=== PATIENT | female | born 1935 | race Caucasian/White ===

== ENCOUNTER 2016-11-04 13:12 | Inpatient (IN) | payer OTHER ==
[2016-11-04 13:17] VITALS: BMI 31.7
[2016-11-04] MEDS ORDERED: ASPIRIN 325 MG TABLET PO ONE (13:41)
[2016-11-04 13:45] LABS: BASOPHIL 0.3 % (0-2.0); EOSINOPHIL 1.3 % (0-4.5); MCH 26.6 pg (25.7-33.7); MCHC 32.9 g/dl (32.0-36.0); MEAN CELL VOLUME 80.8 fl (80-96); MEAN PLT VOLUME 9.3 fl (7.5-11.1); PLATELET COUNT 241 K/MM3 (134-434); RDW 15.7 % (11.6-15.6); WHITE BLOOD COUNT 12.3 K/mm3 (4.0-10.0)
[2016-11-04] MEDS ORDERED: FUROSEMIDE 40 MG/4 ML INJECTABLE VIAL IVPUSH ONE (13:51)
--- NOTE | 2016-11-04 13:51 | PDOC ---
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 She was taken off her regular digoxin about 3 weeks ago. She notes that this has worsened since the onset and is similar to her prior episodes of CHF exacerbation. She measured her pulse oxygenation to be in the mid-80s at home on room air, and she turned on her supplemental oxygen to 3 LPM with slower-than -normal improvement for her baseline. Her only other additional symptoms have been foot/ankle swelling on both sides, and mid-epigastric/lower mid-chest burning sensation this morning. She stopped taking her normal digoxin at the request of her regular doctor a few weeks ago, and also was treated 2-3 weeks ago for a bronchitis with Prednisone and a Z-pack, which she took as prescribed. Past History - Past Medical History Allergies/Adverse Reactions: Allergies Allergy/AdvReac Type Severity Reaction Status Date / Time albuterol Allergy Hives Verified 11/04/16 15:35 ciprofloxacin Allergy Rash Verified 11/04/16 15:35 clindamycin Allergy Hives Verified 11/04/16 15:35 lactose [Lactose] Allergy Nausea Verified 11/04/16 15:35 levofloxacin [From Levaquin] Allergy Rash Verified 11/04/16 15:35 Penicillins Allergy Swelling Verified 11/04/16 15:35 Shellfish Allergy Difficulty Verified 11/04/16 15:35 Breathing Sulfa (Sulfonamide Allergy Rash Verified 11/04/16 15:35 Antibiotics) trimethobenzamide HCl Allergy Rash Verified 11/04/16 15:35 [From Tigan] atorvastatin calcium AdvReac Unknown "muscle Verified 11/04/16 15:35 [From Lipitor] weakness" morphine AdvReac Unknown blurred Verified 11/04/16 15:35 vision Home Medications: Ambulatory Orders Aspirin [ASA -] 81 mg PO DAILY 08/10/15 Budesonide/Formeterol Fumarate [SYMBICORT 80/4.5mcg -] 1 inh PO BID 08/10/15 Tiotropium [place] [Spiriva] 1 inh PO DAILY 08/10/15 Levothyroxine [Synthroid -] 75 mcg PO DAILY 09/16/15 Metoprolol Succinate [Toprol XL -] 25 mg PO BID #60 tab.sr.24h 09/24/15 Docusate Sodium [Colace -] 100 mg PO BID 11/06/15 Clopidogrel Bisulfate [Clopidogrel] 75 mg PO DAILY 03/18/16 Furosemide [Lasix -] 40 mg PO BID 03/18/16 Simvastatin [Zocor -] 40 mg PO HS 03/18/16 Spironolactone 12.5 mg PO BID 11/04/16 Anemia: No Asthma: Yes Cancer: No Cardiac Disorders: Yes (CHF, , AVR(bioprosthetic) , CAD, CABG, Afib) CVA: No COPD: Yes (02 DEPENDANT 3L NC) CHF: Yes Dementia: No Diabetes: No GI Disorders: No Disorders: No HTN: Yes Hypercholesterolemia: Yes Liver Disease: No Suicide Attempt (Hx): No Seizures: No Thyroid Disease: Yes (HYPO.) - Surgical History Abdominal Surgery: No Appendectomy: Yes Cardiac Surgery: Yes (BYPASS-triple 14 years ago, AVR bioprosthetic 04/23, Pmarker&defib) Cholecystectomy: Yes Lung Surgery: No Neurologic Surgery: No Orthopedic Surgery: Yes (TKR right) - Immunization History Immunization Up to Date: Yes - Psycho/Social/Smoking Cessation Hx Anxiety: No Suicidal Ideation: No Smoking Status: No Smoking History: Former smoker Have you smoked in the past 12 months: No Number of Cigarettes Smoked Daily: 0 If you are a former smoker, when did you quit?: 21 YRS Information on smoking cessation initiated: No Hx Alcohol Use: No Drug/Substance Use Hx: No Substance Use Type: None Hx Substance Use Treatment: No Respiratory Specific PMHX - Complaint Specific PMHX Angina: Yes Bronchitis: Yes Pneumonia: Yes Pulmonary Embolus: No TB (Tuberculosis): No Review of Systems - Review of Systems Constitutional: No: Chills, Fever HEENTM: No: Nose Congestion, Throat Pain Respiratory: Yes: Orthopnea, Shortness of Breath, SOB with Exertion, SOB at Rest. No: Cough, Productive cough Cardiac (ROS): Yes: Chest Pain (lower mid-chest), Edema (both feet). No: Palpitations ABD/GI: No: Constipated, Diarrhea, Nausea, Vomiting : No: Burning, Dysuria Musculoskeletal: No: Back Pain, Neck Pain Integumentary: No: Bruising, Rash Neurological: No: Headache, Numbness, Tingling, Weakness, Dizziness Endocrine: No: Unexplained Weight Gain, Unexplained Weight Loss *Physical Exam - Vital Signs Last Vital Signs Temp Pulse Resp BP Pulse Ox 97.3 F L 103 H 22 118/76 97 11/04/16 13:15 11/04/16 13:15 11/04/16 13:15 11/04/16 13:15 11/04/16 13:15 - Physical Exam General Appearance: Yes: Nourished, Mild Distress, Other (appears anxious, tripoding with legs over side of bed, wearing nasal cannula) HEENT: positive: EOMI, Normal Voice, Hearing Grossly Normal. negative: Scleral Icterus (R), Scleral Icterus (L), Nasal Congestion Neck: positive: Trachea midline, Supple. negative: Tender, Rigid Respiratory/Chest: positive: Respiratory Distress (mild), Crackles (faint bilateral bases), Other (poor air movement, decreased breath sounds) Cardiovascular: positive: Regular Rhythm, Regular Rate, Edema (2+ bilateral pedal to distal calf), Systolic Murmur (2/6). negative: Murmur Gastrointestinal/Abdominal: positive: Normal Bowel Sounds, Soft. negative: Tender, Organomegaly, Pulsatile Mass, Guarding Musculoskeletal: positive: Normal Inspection. negative: Decreased Range of Motion, Vertebral Tenderness Extremity: positive: Normal Capillary Refill, Normal Inspection, Normal Range of Motion. negative: Tender, Cyanosis Integumentary: positive: Normal Color, Dry, Warm. negative: Erythema, Rash, Bruising Neurologic: positive: cleaner operator II-XII NML intact, Fully Oriented, Alert, Normal Mood/ Affect, Normal Response, Motor Strength 5/5 Heart Score/ECG Review - History History: Slightly suspicious - Age Age: >/= 65 - Risk Factors Risk Factors Heart Score: Yes Hx Hypertension - Troponin Troponin: </= normal limit #1 ECG reviewed & interpreted by me at: 13:45 Paced rhythm, ate of 96, otherwise unremarkable EKG ED Treatment Course - LABORATORY CBC & Chemistry Diagram: 11/04/16 13:30 11/04/16 13:30 - RADIOLOGY Radiology Studies Ordered: Category Date Time Status CHEST X-RAY PORTABLE* [RAD] Stat Radiology 11/04/16 13:41 Ordered Chest X-Ray Result: Other (Poor inspiratory effort but no obvious pleural effusions or consolidations) Medical Decision Making - Medical Decision Making 81 yo female with h/o CHF, COPD, recent bronchitis (tx Z-pack and Prednisone), diaphragm partial paralysis, and JERALD. Presents with SOB since yesterday with sat's to 80s at home on room air. Satting well in the ED but must remain on 3+ LPM, continues to feel very SOB despite diuresis. 2+ pitting pedal edema bilaterally, poor air movement, crackles bilateral bases , no wheezes. Most likely this is CHF exacerbation, also on ddx are COPD exacerbation, PNA, bronchitis, PE. Ordered are CXR, EKG, CBC, CMP, UA and culture, troponin, BNP. BNP is >8000 (note Pt was admitted in 03/2016 with CHF exacerbation with BNP about 6200). EKG unchanged and troponin wnl, CXR without e/o PNA or pleural effusion. She is comfortable with admission for inpatient monitoring and further management. *DC/Admit/Observation/Transfer Diagnosis at time of Disposition: CHF exacerbation Qualifiers: Congestive heart failure type: unspecified congestive heart failure type Qualified Code(s): I50.9 - Heart failure, unspecified - Discharge Dispostion Condition at time of disposition: Improved Admit: Yes - Attestations Physician Attestion: 11/04/16 17:52 I, Dr. Tayla May, attest that this document has been prepared under my direction and personally reviewed by me in its entirety. I further attest, that it accurately reflects all work, treatment, procedures and medical decision -making performed by me.
--- NOTE | 2016-11-04 13:53 | PDOC ---
Attending Attestation - Resident Resident Name: Tayla May - ED Attending Attestation I have performed the following: I have examined & evaluated the patient, The case was reviewed & discussed with the resident, I agree w/resident's findings & plan, Exceptions are as noted - HPI HPI: 11/04/16 13:48 81 yo female with very complicated PMH presents with shortness of breath and low pulse ox on 3L of home o2 - Physicial Exam PE: 11/04/16 13:49 No Obvious distress but increased work of breathing - Medical Decision Making 11/04/16 13:[address] May's assessment and plan Discharge Disposition - Diagnosis CHF exacerbation Qualifiers: Congestive heart failure type: unspecified congestive heart failure type Qualified Code(s): I50.9 - Heart failure, unspecified - Discharge Dispostion Condition at time of disposition: Improved Last Admission D/C Date: 03/25/16 Admit: Yes - Referrals Referrals: Flori Bella MD [Primary Care Provider] - - Patient Instructions - Post Discharge Activity
[2016-11-04] MEDS ORDERED: METOLAZONE 10 MG TABLET PO ONE (13:54)
[2016-11-04 13:59] LABS: INR 1.11 (0.82-1.09); PROTHROMBIN TIME (PATIENT) 12.2 SEC (9.98-11.88)
[2016-11-04 14:02] LABS: ACTIVATED PTT 31.7 SECONDS (26.9-34.4)
[2016-11-04] MEDS ORDERED: ASPIRIN 325 MG ENTERIC COATED TABLET (FP) ONE (14:06)
[2016-11-04] MEDS ORDERED: FUROSEMIDE 40 MG/4 ML INJECTABLE VIAL ONE (14:07)
[2016-11-04 14:15] LABS: ALBUMIN 3.4 g/dl (3.4-5.0); ANION GAP 11 (8-16); BILIRUBIN,TOTAL 0.7 mg/dL (0.2-1.0); CALCIUM 8.7 mg/dL (8.5-10.1); CO2 29 mmol/L (21-32); CREATININE 0.7 mg/dL (0.55-1.02); GLUCOSE,RANDOM 98 mg/dL (74-106); SGPT/ALT 19 U/L (12-78); TOT PROT 7.3 g/dl (6.4-8.2)
[2016-11-04] MEDS ORDERED: METOLAZONE 5 MG TABLET PO ONE (14:15)
[2016-11-04 14:18] LABS: ALK PHOS 116 U/L (45-117); TROPONIN I 0.02 ng/ml (0.00-0.05)
[2016-11-04 15:37] LABS: CPK 49 IU/L (26-192)
[2016-11-04 15:43] LABS: SGOT/AST 26 U/L (15-37)
--- NOTE | 2016-11-04 18:30 | HP ---
CHIEF COMPLAINT: " i couldn't breathe" PCP: Dr. 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 Patient reports worsening exertional dyspnea, orthopnea, increased dry cough, anorexia, O2 sats below baseline while on home O2 (93 at rest from normal 97 and 85 on exertion), LE edema L>R as well as burning nonradiating mid sternal pain since this AM. She reports compliance with home meds but states that her cardilogist d/cd her digoxin 3 w ago. She denies increasing salt intake. Last TTE 03/2016 severely reduced EF, globally hypokinetic LV ER course was notable for: (1) WBC of 12.3, BNP of 8447 (2) CXR- no consolidation or pleural effusion (3) EKG- Paced rhythm, rate of 96, otherwise unremarkable EKG, trops negative x1 , 80 MG lasix, metalazone 10mg x2 PAST MEDICAL HISTORY: as above PAST SURGICAL HISTORY: appendectomy, cholecystectomy, R TKR Social History: Smoking: Former smoker, quit 21 yrs ago Alcohol: Denies Drugs: Denies Family History: CAD Allergies albuterol Allergy (Verified 11/04/16 15:35) Hives ciprofloxacin Allergy (Verified 11/04/16 15:35) Rash clindamycin Allergy (Verified 11/04/16 15:35) Hives lactose [Lactose] Allergy (Verified 11/04/16 15:35) Nausea levofloxacin [From Levaquin] Allergy (Verified 11/04/16 15:35) Rash Penicillins Allergy (Verified 11/04/16 15:35) Swelling Shellfish Allergy (Verified 11/04/16 15:35) Difficulty Breathing Sulfa (Sulfonamide Antibiotics) Allergy (Verified 11/04/16 15:35) Rash trimethobenzamide HCl [From Tigan] Allergy (Verified 11/04/16 15:35) Rash atorvastatin calcium [From Lipitor] Adverse Reaction (Unknown, Verified 15:35) "muscle weakness" zocor ok as per patient morphine Adverse Reaction (Unknown, Verified 11/04/16 15:35) blurred vision HOME MEDICATIONS: Home Medications Medication Instructions Recorded Aspirin [ASA -] 81 mg PO DAILY 08/10/15 Budesonide/Formeterol Fumarate 1 inh PO BID 08/10/15 [SYMBICORT 80/4.5mcg -] Tiotropium Black [Spiriva] 1 inh PO DAILY 08/10/15 Levothyroxine [Synthroid -] 75 mcg PO DAILY 09/16/15 Metoprolol Succinate [Toprol XL -] 25 mg PO BID #60 tab.sr.24h 09/24/15 Docusate Sodium [Colace -] 100 mg PO BID 11/06/15 Clopidogrel Bisulfate [Clopidogrel] 75 mg PO DAILY 03/18/16 Furosemide [Lasix -] 40 mg PO BID 03/18/16 Simvastatin [Zocor -] 40 mg PO HS 03/18/16 Spironolactone 12.5 mg PO BID 11/04/16 REVIEW OF SYSTEMS CONSTITUTIONAL: Absent: fever, chills, weight change HEENT: Absent: rhinorrhea, nasal congestion, throat pain CARDIOVASCULAR: Absent: syncope, palpitations, lightheadedness RESPIRATORY: Absent: wheezing, stridor, hemoptysis GASTROINTESTINAL: Absent: abdominal pain, abdominal distension, nausea, vomiting, diarrhea, constipation, melena, hematochezia GENITOURINARY: Absent: dysuria, flank pain MUSCULOSKELETAL: Absent: back pain, neck pain SKIN: Absent: rash, itching, pallor HEMATOLOGIC/IMMUNOLOGIC: Absent: easy bleeding, easy bruising ENDOCRINE: Absent: unexplained weight gain, unexplained weight loss NEUROLOGIC: Absent: headache, focal weakness or paresthesias PSYCHIATRIC: Absent: anxiety, depression PHYSICAL EXAMINATION Vital Signs - 24 hr 11/04/16 11/04/16 11/04/16 13:15 13:25 14:19 Temperature 97.3 F L Pulse Rate 103 H Pulse Rate [ 90 Radial] Respiratory 22 24 Rate Blood Pressure 118/76 Blood Pressure 107/69 [Right Arm] O2 Sat by Pulse 97 97 99 Oximetry (%) 11/04/16 15:54 Temperature Pulse Rate Pulse Rate [ Radial] Respiratory Rate Blood Pressure Blood Pressure 115/53 [Right Arm] O2 Sat by Pulse Oximetry (%) GENERAL: Awake, alert, and fully oriented, in no acute distress. HEAD: Normal with no signs of trauma. EYES: Pupils equal, round and reactive to light, extraocular movements intact, sclera anicteric, conjunctiva clear. No lid lag. EARS, NOSE, THROAT: Moist mucous membranes. NECK: supple without JVD LUNGS: crackles and ronchi up to mid lung roberts b/l HEART: Regular rate and rhythm, normal S1 and S2 ABDOMEN: Soft, nontender, not distended, normoactive bowel sounds, no guarding, no rebound, no masses. MUSCULOSKELETAL: Normal range of motion at all joints. No bony deformities or tenderness. No CVA tenderness. UPPER EXTREMITIES: 2+ pulses, warm, well-perfused. No cyanosis. No clubbing. No peripheral edema. LOWER EXTREMITIES: 1+ pulses, warm, well-perfused. No calf tenderness. moderate peripheral edema L>R. NEUROLOGICAL: Cranial nerves II-XII grossly intact. Normal speech. PSYCHIATRIC: Cooperative. Good eye contact. Appropriate mood and affect. SKIN: Warm, dry Laboratory Results - last 24 hr 11/04/16 11/04/16 11/04/16 13:30 13:30 13:30 WBC 12.3 H RBC 4.63 Hgb 12.3 Hct 37.4 MCV 80.8 MCH 26.6 MCHC 32.9 RDW 15.7 H Plt Count 241 D MPV 9.3 Neutrophils % 83.0 H Lymphocytes % 8.6 D Monocytes % 6.8 Eosinophils % 1.3 Basophils % 0.3 INR 1.11 PTT (Actin FS) 31.7 Sodium 137 Potassium 4.3 Chloride 97 L Carbon Dioxide 29 Anion Gap 11 BUN 27 H D Creatinine 0.7 D Creat Clearance w eGFR > 60 Random Glucose 98 Calcium 8.7 Total Bilirubin 0.7 AST 26 D ALT 19 D Alkaline Phosphatase 116 D Creatine Kinase 49 Troponin I 0.02 B-Natriuretic Peptide 8447.33 H Total Protein 7.3 Albumin 3.4 Blood Type Antibody Screen Spec Expiration Date 11/04/16 13:30 WBC RBC Hgb Hct MCV MCH MCHC RDW Plt Count MPV Neutrophils % Lymphocytes % Monocytes % Eosinophils % Basophils % INR PTT (Actin FS) Sodium Potassium Chloride Carbon Dioxide Anion Gap BUN Creatinine Creat Clearance w eGFR Random Glucose Calcium Total Bilirubin AST ALT Alkaline Phosphatase Creatine Kinase Troponin I B-Natriuretic Peptide Total Protein Albumin Blood Type Cancelled Antibody Screen Cancelled Spec Expiration Date Cancelled ASSESSMENT/PLAN: This is an 81 yo f with PMH of systolic CHF (last exaerbation 03/25), CAD s/p CABG, O2 dependent COPD (3L), HTN, aortic valve replacement (on plavix, asa), 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 Acute on chronic systolic CHF exacerbation in setting of severely reduced EF -NYHA class III -BNP >8000 above baseline -EKG unremarkable for acs -cxr bibailar congestion -trop negative x 1; trend -s/p IV lasix 80 in ED, start on IV lasix 60 d -resume beta akin, aldactone -patient not on sonya or arb, consider starting per linux developer -strict I and O, daily weight. maintain negative fluid balance -TTE -cardio consult -TFTs, Lipid panel, A1C -tele monitoring LLE edema -likley due to CHF exacerbation -b/l le duplex Prosthetic aortic valve -resume plavix, asa COPD -NC 3L -nebs -incentive spirometer -reconcile meds with pharmacy -consider starting laba/lama PPH: PPI, hep Dispo: Adm tele Problem List - Problem (1) CHF exacerbation Code(s): I50.9 - HEART FAILURE, UNSPECIFIED Qualifiers: Congestive heart failure type: unspecified congestive heart failure type Qualified Code(s): I50.9 - Heart failure, unspecified (2) Acute on chronic systolic CHF (congestive heart failure) Code(s): I50.23 - ACUTE ON CHRONIC SYSTOLIC (CONGESTIVE) HEART FAILURE (3) Shortness of breath Code(s): R06.02 - SHORTNESS OF BREATH (4) Aortic valve replaced Code(s): Z95.2 - PRESENCE OF PROSTHETIC HEART VALVE (5) CAD (coronary artery disease) Code(s): I25.10 - ATHSCL HEART DISEASE OF [place] CORONARY ARTERY W/O ANG PCTRS (6) CHF (congestive heart failure) Code(s): I50.9 - HEART FAILURE, UNSPECIFIED Qualifiers: Congestive heart failure type: unspecified congestive heart failure type Congestive heart failure chronicity: unspecified congestive heart failure chronicity Qualified Code(s): I50.9 - Heart failure, unspecified (7) COPD bronchitis Code(s): J44.9 - CHRONIC OBSTRUCTIVE PULMONARY DISEASE, UNSPECIFIED (8) Diabetes Code(s): E11.9 - TYPE 2 DIABETES MELLITUS WITHOUT COMPLICATIONS (9) Hx of CABG Code(s): Z95.1 - PRESENCE OF AORTOCORONARY BYPASS GRAFT (10) Hyperlipidemia Code(s): E78.5 - HYPERLIPIDEMIA, UNSPECIFIED (11) Hypertension Code(s): I10 - ESSENTIAL (PRIMARY) HYPERTENSION (12) Hypothyroidism Code(s): E03.9 - HYPOTHYROIDISM, UNSPECIFIED (13) ICD (implantable cardioverter-defibrillator) in place Code(s): Z95.810 - PRESENCE OF AUTOMATIC (IMPLANTABLE) CARDIAC DEFIBRILLATOR (14) Obese Code(s): E66.9 - OBESITY, UNSPECIFIED (15) Valvular heart disease Code(s): I38 - ENDOCARDITIS, VALVE UNSPECIFIED (16) CHF NYHA class III Code(s): I50.9 - HEART FAILURE, UNSPECIFIED Visit type - Emergency Visit Emergency Visit: Yes ED Registration Date: 11/04/16 Care time: The patient presented to the Emergency Department on the above date and was hospitalized for further evaluation of their emergent condition. - New Patient This patient is new to me today: Yes Date on this admission: 11/05/16 - Critical Care Critical Care patient: No
--- NOTE | 2016-11-04 20:18 | HP ---
CHIEF COMPLAINT: Shortness of Breath PCP: Dr. 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 Patient states her O2 sats dropped to 93-94 from baseline of 97 at rest. She then noticed her sats dropped to the low 80s on exertion. She is on 3L of O2 at home. She also complains of bilateral LE edema and midsternal burning sensation that began this morning. Patient stopped taking her digoxin during her last appt with Dr. Dunn a few weeks ago. Of note, her last echo was in 03/2016 with an EF of 19.7. 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 at home s/p AICD / defibrillator PAST SURGICAL HISTORY: appendectomy, cholecystectomy, R TKR Social History: Smoking: Former smoker, quit 21 yrs ago Alcohol: Denies Drugs: Denies Family History: Allergies albuterol Allergy (Verified 11/04/16 15:35) Hives ciprofloxacin Allergy (Verified 11/04/16 15:35) Rash clindamycin Allergy (Verified 11/04/16 15:35) Hives lactose [Lactose] Allergy (Verified 11/04/16 15:35) Nausea levofloxacin [From Levaquin] Allergy (Verified 11/04/16 15:35) Rash Penicillins Allergy (Verified 11/04/16 15:35) Swelling Shellfish Allergy (Verified 11/04/16 15:35) Difficulty Breathing Sulfa (Sulfonamide Antibiotics) Allergy (Verified 11/04/16 15:35) Rash trimethobenzamide HCl [From Tigan] Allergy (Verified 11/04/16 15:35) Rash atorvastatin calcium [From Lipitor] Adverse Reaction (Unknown, Verified 15:35) "muscle weakness" zocor ok as per patient morphine Adverse Reaction (Unknown, Verified 11/04/16 15:35) blurred vision HOME MEDICATIONS: Home Medications Medication Instructions Recorded Aspirin [ASA -] 81 mg PO DAILY 08/10/15 Budesonide/Formeterol Fumarate 1 inh PO BID 08/10/15 [SYMBICORT 80/4.5mcg -] Tiotropium [place] [Spiriva] 1 inh PO DAILY 08/10/15 Levothyroxine [Synthroid -] 75 mcg PO DAILY 09/16/15 Metoprolol Succinate [Toprol XL -] 25 mg PO BID #60 tab.sr.24h 09/24/15 Docusate Sodium [Colace -] 100 mg PO BID 11/06/15 Clopidogrel Bisulfate [Clopidogrel] 75 mg PO DAILY 03/18/16 Furosemide [Lasix -] 40 mg PO BID 03/18/16 Simvastatin [Zocor -] 40 mg PO HS 03/18/16 Spironolactone 12.5 mg PO BID 11/04/16 REVIEW OF SYSTEMS CONSTITUTIONAL: Absent: fever, chills, diaphoresis, generalized weakness, malaise, loss of appetite, weight change HEENT: Absent: rhinorrhea, nasal congestion, throat pain, throat swelling, difficulty swallowing, mouth swelling, ear pain, eye pain, visual changes CARDIOVASCULAR: Absent: chest pain, syncope, palpitations, irregular heart rate, lightheadedness , peripheral edema RESPIRATORY: Absent: cough, shortness of breath, dyspnea with exertion, orthopnea, wheezing, stridor, hemoptysis GASTROINTESTINAL: Absent: abdominal pain, abdominal distension, nausea, vomiting, diarrhea, constipation, melena, hematochezia GENITOURINARY: Absent: dysuria, frequency, urgency, hesitancy, hematuria, flank pain, genital pain MUSCULOSKELETAL: Absent: myalgia, arthralgia, joint swelling, back pain, neck pain SKIN: Absent: rash, itching, pallor HEMATOLOGIC/IMMUNOLOGIC: Absent: easy bleeding, easy bruising, lymphadenopathy, frequent infections ENDOCRINE: Absent: unexplained weight gain, unexplained weight loss, heat intolerance, cold intolerance NEUROLOGIC: Absent: headache, focal weakness or paresthesias, dizziness, unsteady gait, seizure, mental status changes, bladder or bowel incontinence PSYCHIATRIC: Absent: anxiety, depression, suicidal or homicidal ideation, hallucinations. PHYSICAL EXAMINATION Vital Signs - 24 hr 11/04/16 18:41 Pulse Rate [ 78 Radial] Respiratory 18 Rate Blood Pressure 112/58 [Right Arm] O2 Sat by Pulse 100 Oximetry (%) GENERAL: Awake, alert, and fully oriented, in no acute distress on 3L of O2 HEAD: Normal with no signs of trauma. EYES: Extraocular movements intact, sclera anicteric, conjunctiva clear. No lid lag. EARS, NOSE, THROAT: Ears normal, nares patent, oropharynx clear without exudates. Moist mucous membranes. NECK: Normal range of motion, supple without lymphadenopathy, JVD, or masses. LUNGS: Breath sounds equal, Coarse bilateral crackles at the bases, poor inspiratory effort. No accessory muscle use. HEART: Regular rate and rhythm, normal S1 and S2 without murmur, rub or gallop. ABDOMEN: Soft, nontender, not distended, normoactive bowel sounds, no guarding, no rebound, no masses. No hepatomegaly or splenomegaly. MUSCULOSKELETAL: Normal range of motion at all joints. No bony deformities or tenderness. No CVA tenderness. UPPER EXTREMITIES: 2+ pulses, warm, well-perfused. No cyanosis. No clubbing. No peripheral edema. LOWER EXTREMITIES: 2+ pulses, warm, well-perfused. No calf tenderness. 1-2+ pitting edema (R>L), negative ana's sign NEUROLOGICAL: Cranial nerves II-XII intact. Normal speech. Normal gait. PSYCHIATRIC: Cooperative. Good eye contact. Appropriate mood and affect. SKIN: Warm, dry, normal turgor, no rashes or lesions noted, normal capillary refill. 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 #Acute CHF exacerbation, NYHA class 3 -BNP 8447 -Lasix 80 mg given in the ED -Lasix 40 mg BID -Cardiology consulted, Dr. Ingram -Echo ordered -I&O -Daily weights -cardiac profile -lipid panel -A1c -Continue home metoprolol 25 mg BID -Patient not on Tommie-I due to tendency to be hyperkalemic. Patient on spironolactone. Tommie held in the past. Will check with cardiology. #Lower extremity edema -Bilateral edema R>L -U/s duplex of lower extremities #Leukocytosis -CXR, no evidence of consolidation -Afebrile -VSS -Will trend #CAD s/p CABG, aortic valve replacement and AICD -Cardiology consulted -Continue home medications- Aspirin 81 mg, metoprolol 25 mg bid, plavix 75 mg BID -Trend troponins. Negative x1 -Telemetry monitoring #HLD -Crestor 20 mg HS (no simvastatin on formulary) -Lipid panel pending #COPD -Continue tudorza and symbicort #Hypothyroidism -Continue synthroid 75 mcg daily -TSH ordered #PPX -DVT- heparin 5000 units BID -GI- not indicated #FEN/GI -No fluids -electrolytes wnl -Sodium controlled diet Visit type - Emergency Visit Emergency Visit: Yes ED Registration Date: 11/04/16 Care time: The patient presented to the Emergency Department on the above date and was hospitalized for further evaluation of their emergent condition. - New Patient This patient is new to me today: Yes Date on this admission: 11/05/16 - Critical Care Critical Care patient: No
--- NOTE | 2016-11-04 21:40 | PN ---
Teaching Attending Note Name of Resident: Lance Walters ATTENDING PHYSICIAN STATEMENT I saw and evaluated the patient. I reviewed the resident's note and discussed the case with the resident. I agree with the resident's findings and plan as documented. 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 Patient is an oxygen dependent on 3L at home. Patient states her O2 sats dropped to low 80s on exertion. As per patient her Digoxin was discontinued by around few weeks ago since she was doing well. She also c/o of RLE swelling > LLE and midsternal burning sensation that began this morning. Her last echo was in 03/2016 with an EF of 19.7. s/p pacemaker and defibrillator. OBJECTIVE: Vital Signs Temperature 97.3 F L 11/04/16 13:15 Pulse Rate 78 11/04/16 18:41 Respiratory Rate 18 11/04/16 18:41 Blood Pressure 112/58 11/04/16 18:41 O2 Sat by Pulse Oximetry (%) 100 11/04/16 18:41 CBCD WBC 12.3 K/mm3 (4.0-10.0) H 11/04/16 13:30 RBC 4.63 M/mm3 (3.60-5.2) 11/04/16 13:30 Hgb 12.3 GM/dL (10.7-15.3) 11/04/16 13:30 Hct 37.4 % (32.4-45.2) 11/04/16 13:30 MCV 80.8 fl (80-96) 11/04/16 13:30 MCHC 32.9 g/dl (32.0-36.0) 11/04/16 13:30 RDW 15.7 % (11.6-15.6) H 11/04/16 13:30 Plt Count 241 K/MM3 (134-434) D 11/04/16 13:30 MPV 9.3 fl (7.5-11.1) 11/04/16 13:30 CMP Sodium 137 mmol/L (136-145) 11/04/16 13:30 Potassium 4.3 mmol/L (3.5-5.1) 11/04/16 13:30 Chloride 97 mmol/L (98-107) L 11/04/16 13:30 Carbon Dioxide 29 mmol/L (21-32) 11/04/16 13:30 Anion Gap 11 (8-16) 11/04/16 13:30 BUN 27 mg/dL (7-18) H D 11/04/16 13:30 Creatinine 0.7 mg/dL (0.55-1.02) D 11/04/16 13:30 Creat Clearance w eGFR > 60 (>60) 11/04/16 13:30 Random Glucose 98 mg/dL (74-106) 11/04/16 13:30 Calcium 8.7 mg/dL (8.5-10.1) 11/04/16 13:30 Total Bilirubin 0.7 mg/dL (0.2-1.0) 11/04/16 13:30 AST 26 U/L (15-37) D 11/04/16 13:30 ALT 19 U/L (12-78) D 11/04/16 13:30 Alkaline Phosphatase 116 U/L (45-117) D 11/04/16 13:30 Total Protein 7.3 g/dl (6.4-8.2) 11/04/16 13:30 Albumin 3.4 g/dl (3.4-5.0) 11/04/16 13:30 CARDIAC ENZYMES Creatine Kinase 49 IU/L (26-192) 11/04/16 13:30 Troponin I 0.02 ng/ml (0.00-0.05) 11/04/16 13:30 Current Medications Generic Name Dose Route Start Last Admin Trade Name Freq PRN Reason Stop Dose Admin Aclidinium [place] 1 puff 11/04/16 22:00 Tudorza - IH BID [facility] Aspirin 81 mg 11/05/16 10:00 Asa - PO DAILY [facility] Budesonide/Formoterol Fumarate 1 puff 11/04/16 22:00 Symbicort 80/4.5mcg - IH BID [facility] Clopidogrel Bisulfate 75 mg 11/05/16 10:00 Plavix - PO DAILY [facility] Docusate Sodium 100 mg 11/04/16 22:00 Colace - PO BID [facility] Furosemide 60 mg 11/05/16 10:00 Lasix Injection - IVPUSH DAILY [facility] Levothyroxine Sodium 75 mcg 11/05/16 07:00 Synthroid - PO DAILY@0700 [facility] Metoprolol Succinate 25 mg 11/05/16 10:00 Toprol Xl - PO BID [facility] Rosuvastatin Calcium 20 mg 11/04/16 22:00 Crestor - PO HS [facility] Spironolactone 12.5 mg 11/05/16 10:00 Aldactone - PO BID [facility] Home Medications Medication Instructions Recorded Aspirin [ASA -] 81 mg PO DAILY 08/10/15 Budesonide/Formeterol Fumarate 1 inh PO BID 08/10/15 [SYMBICORT 80/4.5mcg -] Tiotropium [place] [Spiriva] 1 inh PO DAILY 08/10/15 Levothyroxine [Synthroid -] 75 mcg PO DAILY 09/16/15 Metoprolol Succinate [Toprol XL -] 25 mg PO BID #60 tab.sr.24h 09/24/15 Docusate Sodium [Colace -] 100 mg PO BID 11/06/15 Clopidogrel Bisulfate [Clopidogrel] 75 mg PO DAILY 03/18/16 Furosemide [Lasix -] 40 mg PO BID 03/18/16 Simvastatin [Zocor -] 40 mg PO HS 03/18/16 Spironolactone 12.5 mg PO BID 11/04/16 Laboratory Tests 03/18/16 03/18/16 03/19/16 18:47 23:30 05:50 BUN Creatinine Troponin I 0.02 < 0.02 B-Natriuretic Peptide 6236.23 H 11/04/16 11/04/16 13:30 21:30 BUN 27 H D Creatinine 0.7 D Troponin I 0.02 0.02 B-Natriuretic Peptide 8447.33 H Chest: No crackles, no wheeze, GAEBL Heart: S1 S2 positive. NO S3 gallop. 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 in low 80s on exertion. Patient is on 3liter oxygen at home. # Acute over chronic systolic CHF exacerbation with BNP of 8447 r/o ACS ; will increase the dose of Lasix to40mg IV bid, patient is on Spirinolactone will continue, Was discontinued her Tommie-I due to having high potassium level in the past. Will check with agency trainer in am . Is and Os. Strict , daily weight. 2 sets of troponin negative so far. Will monitor in Tele. EKG in am # RLE swelling/edema > LLE Duplex ordered to r/o DVT follow the result, on Lasix IV will continue. # Acute Leukocytosis , no evidence of infection will monitor #CAD s/p aortic valve replacement and AICD continue meds #Hx of HLD on Zocor continue home meds, her daughter will bring it from home # hx of COPD continue tudorza and symbicort # hx of Hypothyroidism continue synthroid 75 mcg daily, check TSH , FT4 level # DVT Px: heparin 5000 units BID Sodium controlled and Fluid controlled to 1 liter daily.
[2016-11-04] MEDS: ACLIDINIUM BROMIDE 400 MCG/INH AERO.POWD IH SCH (23:29)
[2016-11-04] MEDS: SPIRONOLACTONE 25 MG TABLET (FP) PO SCH (23:30)
[2016-11-04] MEDS: DOCUSATE SODIUM 100 MG CAPSULE (FP) PO SCH (23:30)
[2016-11-04] MEDS: BUDESONIDE/FORMETEROL FUMARATE 80/4.5 mcg INHALER IH SCH (23:30)
[2016-11-04] MEDS: ROSUVASTATIN CA 20 MG TABLET (FP) PO SCH (23:35)
[2016-11-05] MEDS ORDERED: FUROSEMIDE 40 MG TABLET (FP) PO SCH (06:00)
[2016-11-05] MEDS: FUROSEMIDE 40 MG/4 ML INJECTABLE VIAL IVPUSH SCH ×2 (06:45→14:24)
[2016-11-05] MEDS: LEVOTHYROXINE NA 75 MCG TABLET (FP) PO SCH (06:45)
[2016-11-05 07:28] LABS: BASOPHIL 0.3 % (0-2.0); EOSINOPHIL 2.6 % (0-4.5); MCH 26.4 pg (25.7-33.7); MCHC 32.8 g/dl (32.0-36.0); MEAN CELL VOLUME 80.6 fl (80-96); MEAN PLT VOLUME 9.4 fl (7.5-11.1); NEUTROPHILS 76.9 % (42.8-82.8); PLATELET COUNT 244 K/MM3 (134-434); RDW 16.2 % (11.6-15.6); WHITE BLOOD COUNT 11.2 K/mm3 (4.0-10.0)
[2016-11-05 07:49] LABS: INR 1.08 (0.82-1.09); PROTHROMBIN TIME (PATIENT) 11.9 SEC (9.98-11.88)
[2016-11-05 08:27] LABS: FREE T4 1.23 ng/dl (0.76-1.46)
[2016-11-05] MEDS ORDERED: PATIENT'S OWN MEDICATION (NON-FORMULARY) (Simvastatin 40 MG) PO SCH (10:00)
[2016-11-05] MEDS ORDERED: FUROSEMIDE 40 MG/4 ML INJECTABLE VIAL IVPUSH SCH ×2 (10:00)
[2016-11-05] MEDS: PANTOPRAZOLE 40 MG TABLET (FP) PO SCH (10:36)
[2016-11-05] MEDS: SPIRONOLACTONE 25 MG TABLET (FP) PO SCH ×2 (10:36→21:33)
[2016-11-05] MEDS: CLOPIDOGREL BISULFATE 75 MG TABLET (FP) PO SCH (10:37)
[2016-11-05] MEDS: DOCUSATE SODIUM 100 MG CAPSULE (FP) PO SCH ×2 (10:37→21:34)
[2016-11-05] MEDS: ASPIRIN 81 MG CHEWABLE TABLETS PO SCH (10:37)
[2016-11-05] MEDS: HEPARIN NA (PORCINE) 5,000 UNITS/ML 1ML VIAL SQ SCH ×2 (10:37→21:34)
[2016-11-05] MEDS: BUDESONIDE/FORMETEROL FUMARATE 80/4.5 mcg INHALER IH SCH ×2 (10:38→21:42)
[2016-11-05] MEDS: ACLIDINIUM BROMIDE 400 MCG/INH AERO.POWD IH SCH ×2 (10:39→21:42)
[2016-11-05] MEDS: METOPROLOL SUCCINATE 25 MG TAB.SR.24H (FP) PO SCH ×3 (10:50→22:38)
[2016-11-05 10:59] LABS: ALBUMIN 3.4 g/dl (3.4-5.0); ALK PHOS 107 U/L (45-117); ANION GAP 9 (8-16); BILIRUBIN,TOTAL 0.5 mg/dL (0.2-1.0); CALCIUM 8.7 mg/dL (8.5-10.1); CHOLESTEROL 178 mg/dL (50-200); CO2 30 mmol/L (21-32); CPK 30 IU/L (26-192); CREATININE 0.8 mg/dL (0.55-1.02); GLUCOSE,RANDOM 87 mg/dL (74-106); LDL CHOLESTEROL (ONLY SJRH) 112 mg/dL (5-100); MAGNESIUM 2.4 mg/dL (1.8-2.4); SGOT/AST 15 U/L (15-37); SGPT/ALT 14 U/L (12-78); THYROID STIMULATING HORMONE 1.68 uIU/ml (0.358-3.74); TOT PROT 6.6 g/dl (6.4-8.2); TROPONIN I 0.02 ng/ml (0.00-0.05)
--- NOTE | 2016-11-05 11:34 | PN ---
Progress Note (short form) - Note Progress Note: c/o SOB worse on exertion. no assoc cough or CP. pedal swelling improved. states been progressing since her digoxin was stopped several weeks ago. denies CP, fever, chills, N/V/C/D Current Medications Generic Name Dose Route Start Last Admin Trade Name Freq PRN Reason Stop Dose Admin Aclidinium [place] 1 puff 11/04/16 22:00 11/05/16 10:39 Tudorza - IH 1 puff BID [facility] Administration Aspirin 81 mg 11/05/16 10:00 11/05/16 10:37 Asa - PO 81 mg DAILY [facility] Administration Budesonide/Formoterol Fumarate 1 puff 11/04/16 22:00 11/05/16 10:38 Symbicort 80/4.5mcg - IH 1 puff BID [facility] Administration Clopidogrel Bisulfate 75 mg 11/05/16 10:00 11/05/16 10:37 Plavix - PO 75 mg DAILY [facility] Administration Docusate Sodium 100 mg 11/04/16 22:00 11/05/16 10:37 Colace - PO 100 mg BID [facility] Administration Furosemide 40 mg 11/05/16 06:00 11/05/16 06:45 Lasix Injection - IVPUSH 40 mg BIDLASIX [facility] Administration Heparin Sodium (Porcine) 5,000 unit 11/05/16 10:00 11/05/16 10:37 Heparin - SQ 5,000 unit BID [facility] Administration Levothyroxine Sodium 75 mcg 11/05/16 07:00 11/05/16 06:45 Synthroid - PO 75 mcg DAILY@0700 [facility] Administration Metoprolol Succinate 25 mg 11/05/16 10:00 11/05/16 10:50 Toprol Xl - PO 25 mg BID [facility] Administration Pantoprazole Sodium 40 mg 11/05/16 10:00 11/05/16 10:36 Protonix - PO 40 mg DAILY [facility] Administration Rosuvastatin Calcium 20 mg 11/04/16 22:00 11/04/16 23:35 Crestor - PO Not Given HS [facility] Spironolactone 12.5 mg 11/04/16 23:15 11/05/16 10:36 Aldactone - PO 12.5 mg BID [facility] Administration Last Vital Signs Temp Pulse Resp BP Pulse Ox 98.4 F 88 20 104/60 97 11/05/16 10:00 11/05/16 10:00 11/05/16 10:00 11/05/16 10:00 11/05/16 06:00 Intake & Output 11/02/16 11/03/16 11/04/16 11/05/16 23:59 23:59 23:59 23:59 Intake Total 370 130 Balance 370 130 Weight 157 lb 161 lb 3.2 oz General NAD CV S1 S2 RRR no murmur/rub/gallop Lungs Crackles B/L bases Abdomen soft NT/ND obese Extremities trace pitting edema CBCD WBC 11.2 K/mm3 (4.0-10.0) H 11/05/16 05:35 RBC 4.35 M/mm3 (3.60-5.2) 11/05/16 05:35 Hgb 11.5 GM/dL (10.7-15.3) 11/05/16 05:35 Hct 35.0 % (32.4-45.2) 11/05/16 05:35 MCV 80.6 fl (80-96) 11/05/16 05:35 MCHC 32.8 g/dl (32.0-36.0) 11/05/16 05:35 RDW 16.2 % (11.6-15.6) H 11/05/16 05:35 Plt Count 244 K/MM3 (134-434) 11/05/16 05:35 MPV 9.4 fl (7.5-11.1) 11/05/16 05:35 CMP Sodium 136 mmol/L (136-145) 11/05/16 05:35 Potassium 3.9 mmol/L (3.5-5.1) 11/05/16 05:35 Chloride 97 mmol/L (98-107) L 11/05/16 05:35 Carbon Dioxide 30 mmol/L (21-32) 11/05/16 05:35 Anion Gap 9 (8-16) 11/05/16 05:35 BUN 27 mg/dL (7-18) H 11/05/16 05:35 Creatinine 0.8 mg/dL (0.55-1.02) 11/05/16 05:35 Creat Clearance w eGFR > 60 (>60) 11/05/16 05:35 Calcium 8.7 mg/dL (8.5-10.1) 11/05/16 05:35 Total Bilirubin 0.5 mg/dL (0.2-1.0) D 11/05/16 05:35 AST 15 U/L (15-37) D 11/05/16 05:35 ALT 14 U/L (12-78) D 11/05/16 05:35 Alkaline Phosphatase 107 U/L (45-117) 11/05/16 05:35 Total Protein 6.6 g/dl (6.4-8.2) 11/05/16 05:35 Albumin 3.4 g/dl (3.4-5.0) 11/05/16 05:35 A/P 81 yo female with h/o CHF, COPD, bronchitis, HTN, 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 1. Acute CHF exacerbation- clinically improved. remains volume overloaded. states her dry weight is 158. currently 161. will cont lasix IV BID. will wait for cardio if digoxin should be re-started. as per pt she is unaware as why it was stopped. echo ordered. no events on cardiac monitored. paced rhythm. cont strict I&O, daily weights. cont spirolactone, lopressor, asa, plavix 2. Leukocytosis- afebrile. likely reactive. no signs of infection. no indication for abx. 3. COPD- on 3L [place] which is what she is on at home. no signs of COPD exacerbation. cont inhalers 4. dyslipidemia- cont statin 5. hypothyroid- cont Lt4 6. DVT ppx- hep sq Visit type - Emergency Visit Emergency Visit: Yes ED Registration Date: 11/04/16 Care time: The patient presented to the Emergency Department on the above date and was hospitalized for further evaluation of their emergent condition. - New Patient This patient is new to me today: Yes Date on this admission: 11/05/16 - Critical Care Critical Care patient: No - Discharge Referral Referred to [facility] No
--- NOTE | 2016-11-05 12:36 | CON.CARD ---
Consult Consult Specialty:: cardiology - History of Present Illness Chief Complaint: Pt lying in bed; anxious; able to hold a conversation, but still easily dyspneic just getting up and crossing the room History of Present Illness: This is an 81 yo white female with h/o CHF, COPD, bronchitis, HTN, aortic valve replacement (c/b phrenic nerve damage and subsequent diaphragm dysfunction), and pacemaker use who presents c/o shortness of breath since yesterday morning. She was taken off her regular digoxin about 3 weeks ago. She notes that this has worsened since the onset and is similar to her prior episodes of CHF exacerbation. She measured her pulse oxygenation to be in the mid-80s at home on room air, and she turned on her supplemental oxygen to 3 LPM with slower-than -normal improvement for her baseline. Her only other additional symptoms have been foot/ankle swelling on both sides, and mid-epigastric/lower mid-chest burning sensation this morning. She stopped taking her normal digoxin at the request of her regular doctor a few weeks ago, and also was treated 2-3 weeks ago for a bronchitis with Prednisone and a Z-pack, which she took as prescribed. - History Source History Provided By: Patient, Medical Record Limitations to Obtaining History: No Limitations - Past Medical History Cardio/Vascular: Yes: AFIB, Aortic Stenosis (s/p AVR), CAD, CHF (Chronic combined systolic/diastolic HF), HTN, Hyperlipdemia, Murmur, Other (aortic valve replacement) Pulmonary: Yes: COPD, Other (paralyzed diaghragm) Reproductive: Yes: Postmenopausal ...: No Psych: Yes: Anxiety, Depression, Panic Musculoskeletal: Yes: Chronic low back pain Endocrine: Yes: Hypothyroidism - Past Surgical History Past Surgical History: Yes: Appendectomy, CABG, Cholecystectomy, , Hysterectomy, Valve Replacement (AVR) - Alcohol/Substance Use Hx Alcohol Use: No History of Substance Use: reports: None - Smoking History Smoking history: Former smoker Have you smoked in the past 12 months: No Aproximately how many cigarettes per day: 0 If you are a former smoker, when did you quit?: 21 YRS - Social History Usual Living Arrangement: With Spouse ADL: Independent History of Recent Travel: No Home Medications - Allergies Allergies/Adverse Reactions: Allergies Allergy/AdvReac Type Severity Reaction Status Date / Time albuterol Allergy Hives Verified 11/04/16 15:35 ciprofloxacin Allergy Rash Verified 11/04/16 15:35 clindamycin Allergy Hives Verified 11/04/16 15:35 lactose [Lactose] Allergy Nausea Verified 11/04/16 15:35 levofloxacin [From Levaquin] Allergy Rash Verified 11/04/16 15:35 Penicillins Allergy Swelling Verified 11/04/16 15:35 Shellfish Allergy Difficulty Verified 11/04/16 15:35 Breathing Sulfa (Sulfonamide Allergy Rash Verified 11/04/16 15:35 Antibiotics) trimethobenzamide HCl Allergy Rash Verified 11/04/16 15:35 [From Tigan] atorvastatin calcium AdvReac Unknown "muscle Verified 11/04/16 15:35 [From Lipitor] weakness" morphine AdvReac Unknown blurred Verified 11/04/16 15:35 vision - Home Medications Home Medications: Ambulatory Orders Aspirin [ASA -] 81 mg PO DAILY 08/10/15 Budesonide/Formeterol Fumarate [SYMBICORT 80/4.5mcg -] 1 inh PO BID 08/10/15 Tiotropium [place] [Spiriva] 1 inh PO DAILY 08/10/15 Levothyroxine [Synthroid -] 75 mcg PO DAILY 09/16/15 Metoprolol Succinate [Toprol XL -] 25 mg PO BID #60 tab.sr.24h 09/24/15 Docusate Sodium [Colace -] 100 mg PO BID 11/06/15 Clopidogrel Bisulfate [Clopidogrel] 75 mg PO DAILY 03/18/16 Furosemide [Lasix -] 40 mg PO BID 03/18/16 Simvastatin [Zocor -] 40 mg PO HS 03/18/16 Spironolactone 12.5 mg PO BID 11/04/16 Family Disease History - Family Disease History Family History: Denies Review of Systems - Review of Systems Constitutional: reports: Weakness Eyes: reports: No Symptoms HENT: reports: No Symptoms Neck: reports: No Symptoms Cardiovascular: reports: Edema Respiratory: reports: SOB on Exertion Gastrointestinal: reports: No Symptoms Genitourinary: reports: No Symptoms Breasts: reports: No Symptoms Reported Musculoskeletal: reports: No Symptoms, Muscle Weakness Neurological: reports: Weakness Psychiatric: reports: Anxiety, Depression, Panic - Risk Factors Known Risk Factors: Yes: Age, Hypercholesterolemia, Hypertension, Physical Inactivity, Other (systolic CHF; CAD) Vital Signs: Vital Signs Temperature 98.4 F 11/05/16 10:00 Pulse Rate 88 11/05/16 10:00 Respiratory Rate 20 11/05/16 10:00 Blood Pressure 104/60 11/05/16 10:00 O2 Sat by Pulse Oximetry (%) 97 11/05/16 06:00 Constitutional: Yes: Anxious Eyes: Yes: WNL HENT: Yes: WNL Neck: Yes: WNL Respiratory: Yes: Diminished Gastrointestinal: Yes: Soft Renal/: No: Anuria Cardiovascular: Yes: Regular Rate and Rhythm JVD: No Carotid Bruit: No PMI: Displaced Heart Sounds: Yes: Split S2 Murmur: Yes: Systolic Murmur, Grade 2 Musculoskeletal: Yes: Joint Stiffness, Muscle Weakness Extremities: Yes: Cool Edema: Yes Edema: LLE: Trace, RLE: Trace Peripheral Pulses WNL: No Peripheral Pulses: 1+ Left Doralis Pedis, 1+ Right Dorsalis Pedis Integumentary: Yes: WNL Neurological: Yes: Alert, Oriented, Weakness Psychiatric: Yes: Other - Other Data Labs, Other Data: CBC, BMP 11/05/16 05:35 11/05/16 05:35 INR, PTT INR 1.08 (0.82-1.09) 11/05/16 05:35 Troponin, BNP 11/04/16 11/05/16 11/05/16 21:30 05:35 05:35 Troponin I 0.02 Cancelled 0.02 Troponin, BNP 11/04/16 11/05/16 11/05/16 21:30 05:35 05:35 Troponin I 0.02 Cancelled 0.02 Ejection Fraction %: LVEF < 40 % Imaging - Results Other: Image Reviewed (telemetry: ventricular pacing; episodes of NSVT) Problem List - Problems (1) Shortness of breath Assessment/Plan: systolic CHF; COPD. Code(s): R06.02 - SHORTNESS OF BREATH (2) Systolic and diastolic CHF w/reduced LV function, NYHA class 4 Assessment/Plan: severely reduced LVEF. metoprolol,; spironolactone; lisinopril,; IV furosemide. F/u BUN/Cr, Is and Os, daily weight, electrolytes. Code(s): I50.40 - UNSP COMBINED SYSTOLIC AND DIASTOLIC (CONGESTIVE) HRT FAIL (3) Anxiety 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 Code(s): F41.0 - PANIC DISORDER WITHOUT AGORAPHOBIA (4) Aortic valve replaced Code(s): Z95.2 - PRESENCE OF PROSTHETIC HEART VALVE (5) COPD bronchitis Assessment/Plan: . desaturates just walking across the room Treating acute/chronic systolic CHF. On O2; f/u with unit operator. Code(s): J44.9 - CHRONIC OBSTRUCTIVE PULMONARY DISEASE, UNSPECIFIED (6) Hx of CABG Code(s): Z95.1 - PRESENCE OF AORTOCORONARY BYPASS GRAFT (7) Hyperlipidemia Assessment/Plan: on rosuvastatin 20 mg daily. Code(s): E78.5 - HYPERLIPIDEMIA, UNSPECIFIED (8) Hypertension Code(s): I10 - ESSENTIAL (PRIMARY) HYPERTENSION (9) ICD (implantable cardioverter-defibrillator) in place Code(s): Z95.810 - PRESENCE OF AUTOMATIC (IMPLANTABLE) CARDIAC DEFIBRILLATOR (10) Sleep apnea in adult Code(s): G47.33 - OBSTRUCTIVE SLEEP APNEA (ADULT) (PEDIATRIC) (11) Nonsustained ventricular tachycardia Assessment/Plan: Severely decreased LVEF and severe LV dilation. Continue metoprolol and aldactone. Add ACEI. F/u electrolytes. Code(s): I47.2 - VENTRICULAR TACHYCARDIA
[2016-11-05] MEDS: ROSUVASTATIN CA 20 MG TABLET (FP) PO SCH (21:35)
[2016-11-05] MEDS ORDERED: ACETAMINOPHEN 325 MG TABLET (FP) PO ONE (22:13)
[2016-11-06] MEDS: LEVOTHYROXINE NA 75 MCG TABLET (FP) PO SCH (06:10)
[2016-11-06] MEDS: FUROSEMIDE 40 MG/4 ML INJECTABLE VIAL IVPUSH SCH ×2 (06:10→14:01)
[2016-11-06 07:54] LABS: BASOPHIL 0.3 % (0-2.0); EOSINOPHIL 2.9 % (0-4.5); MCH 26.7 pg (25.7-33.7); MCHC 32.9 g/dl (32.0-36.0); MEAN CELL VOLUME 81.2 fl (80-96); MEAN PLT VOLUME 9.7 fl (7.5-11.1); NEUTROPHILS 75.7 % (42.8-82.8); PLATELET COUNT 247 K/MM3 (134-434); RDW 15.8 % (11.6-15.6); WHITE BLOOD COUNT 9.6 K/mm3 (4.0-10.0)
[2016-11-06 08:50] LABS: ANION GAP 10 (8-16); CALCIUM 8.8 mg/dL (8.5-10.1); CO2 32 mmol/L (21-32); CREATININE 0.9 mg/dL (0.55-1.02); GLUCOSE,RANDOM 88 mg/dL (74-106); MAGNESIUM 2.5 mg/dL (1.8-2.4)
[2016-11-06] MEDS: HEPARIN NA (PORCINE) 5,000 UNITS/ML 1ML VIAL SQ SCH ×2 (10:00→21:31)
--- NOTE | 2016-11-06 10:00 | PN ---
Progress Note (short form) - Note Progress Note: states SOB has improved but does not feel at baseline. denies CP, fever, chills , N/V/C/D admits today to going on a "cheese binge" around 2 weeks ago when she was also stopped on digoxin and that her symptoms started. Current Medications Generic Name Dose Route Start Last Admin Trade Name Xavier PRN Reason Stop Dose Admin Aclidinium [place] 1 puff 11/04/16 22:00 11/05/16 21:42 Tudorza - IH 1 puff BID MAGO Administration Aspirin 81 mg 11/05/16 10:00 11/05/16 10:37 Asa - PO 81 mg DAILY MAGO Administration Budesonide/Formoterol Fumarate 1 puff 11/04/16 22:00 11/05/16 21:42 Symbicort 80/4.5mcg - IH 1 puff BID MAGO Administration Clopidogrel Bisulfate 75 mg 11/05/16 10:00 11/05/16 10:37 Plavix - PO 75 mg DAILY MAGO Administration Docusate Sodium 100 mg 11/04/16 22:00 11/05/16 21:34 Colace - PO 100 mg BID MAGO Administration Furosemide 40 mg 11/05/16 06:00 11/06/16 06:10 Lasix Injection - IVPUSH 40 mg BIDLASIX MAGO Administration Heparin Sodium (Porcine) 5,000 unit 11/05/16 10:00 11/05/16 21:34 Heparin - SQ 5,000 unit BID MAGO Administration Levothyroxine Sodium 75 mcg 11/05/16 07:00 11/06/16 06:10 Synthroid - PO 75 mcg DAILY@0700 MAGO Administration Lisinopril 2.5 mg 11/06/16 10:00 Prinivil PO DAILY MAGO Metoprolol Succinate 25 mg 11/05/16 10:00 11/05/16 22:38 Toprol Xl - PO 25 mg BID MAGO Administration Pantoprazole Sodium 40 mg 11/05/16 10:00 11/05/16 10:36 Protonix - PO 40 mg DAILY MAGO Administration Rosuvastatin Calcium 20 mg 11/04/16 22:00 11/05/16 21:35 Crestor - PO Not Given HS MAGO Spironolactone 12.5 mg 11/04/16 23:15 11/05/16 21:33 Aldactone - PO 12.5 mg BID MAGO Administration Last Vital Signs Temp Pulse Resp BP Pulse Ox 97.7 F 87 19 105/53 99 11/06/16 06:00 11/06/16 06:00 11/06/16 06:00 11/06/16 06:00 11/06/16 06:00 Intake & Output 11/03/16 11/04/16 11/05/16 11/06/16 23:59 23:59 23:59 23:59 Intake Total 370 380 120 Balance 370 380 120 Weight 157 lb 161 lb 3.2 oz 161 lb General NAD CV S1 S2 RRR no murmur/rub/gallop Lungs Crackles B/L bases Abdomen soft NT/ND obese Extremities no pitting edema CBCD WBC 9.6 K/mm3 (4.0-10.0) 11/06/16 05:35 RBC 4.47 M/mm3 (3.60-5.2) 11/06/16 05:35 Hgb 11.9 GM/dL (10.7-15.3) 11/06/16 05:35 Hct 36.3 % (32.4-45.2) 11/06/16 05:35 MCV 81.2 fl (80-96) 11/06/16 05:35 MCHC 32.9 g/dl (32.0-36.0) 11/06/16 05:35 RDW 15.8 % (11.6-15.6) H 11/06/16 05:35 Plt Count 247 K/MM3 (134-434) 11/06/16 05:35 MPV 9.7 fl (7.5-11.1) 11/06/16 05:35 CMP Sodium 136 mmol/L (136-145) 11/06/16 05:35 Potassium 3.9 mmol/L (3.5-5.1) 11/06/16 05:35 Chloride 94 mmol/L (98-107) L 11/06/16 05:35 Carbon Dioxide 32 mmol/L (21-32) 11/06/16 05:35 Anion Gap 10 (8-16) 11/06/16 05:35 BUN 26 mg/dL (7-18) H 11/06/16 05:35 Creatinine 0.9 mg/dL (0.55-1.02) 11/06/16 05:35 Creat Clearance w eGFR > 60 (>60) 11/05/16 05:35 Calcium 8.8 mg/dL (8.5-10.1) 11/06/16 05:35 Total Bilirubin 0.5 mg/dL (0.2-1.0) D 11/05/16 05:35 AST 15 U/L (15-37) D 11/05/16 05:35 ALT 14 U/L (12-78) D 11/05/16 05:35 Alkaline Phosphatase 107 U/L (45-117) 11/05/16 05:35 Total Protein 6.6 g/dl (6.4-8.2) 11/05/16 05:35 Albumin 3.4 g/dl (3.4-5.0) 11/05/16 05:35 A/P 81 yo female with h/o CHF, COPD, bronchitis, HTN, 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 1. Acute CHF exacerbation-likley due to increased salt intake (high cheese diet) . clinically improved. continues to have some crackles. no change in weight. will cont lasix for now at IV dosing. possible switch to po tomorrow pending on symptoms. cardio on board. will ask to comment on digoxin on why it was stopped. cont strict I&O, daily weights. cont spirolactone, lopressor, asa, plavix 2. Leukocytosis- afebrile. likely reactive. no signs of infection. no indication for abx. 3. COPD- on 3L NC which is what she is on at home. no signs of COPD exacerbation. cont inhalers 4. dyslipidemia- cont statin 5. hypothyroid- cont Lt4 6. DVT ppx- hep sq Visit type - Emergency Visit Emergency Visit: Yes ED Registration Date: 11/04/16 Care time: The patient presented to the Emergency Department on the above date and was hospitalized for further evaluation of their emergent condition. - New Patient This patient is new to me today: No - Critical Care Critical Care patient: No - Discharge Referral Referred to [facility] Med P.C.: No
[2016-11-06] MEDS: ACLIDINIUM BROMIDE 400 MCG/INH AERO.POWD IH SCH ×2 (10:09→21:32)
[2016-11-06] MEDS: BUDESONIDE/FORMETEROL FUMARATE 80/4.5 mcg INHALER IH SCH ×2 (10:09→21:31)
[2016-11-06] MEDS: DOCUSATE SODIUM 100 MG CAPSULE (FP) PO SCH ×2 (10:10→21:30)
[2016-11-06] MEDS: ASPIRIN 81 MG CHEWABLE TABLETS PO SCH (10:10)
[2016-11-06] MEDS: LISINOPRIL 5 MG TABLET (FP) PO SCH (10:10)
[2016-11-06] MEDS: CLOPIDOGREL BISULFATE 75 MG TABLET (FP) PO SCH (10:10)
[2016-11-06] MEDS: METOPROLOL SUCCINATE 25 MG TAB.SR.24H (FP) PO SCH ×2 (10:10→21:32)
[2016-11-06] MEDS: PANTOPRAZOLE 40 MG TABLET (FP) PO SCH (10:10)
[2016-11-06] MEDS: SPIRONOLACTONE 25 MG TABLET (FP) PO SCH ×2 (10:10→21:30)
--- NOTE | 2016-11-06 12:44 | CON.PULM ---
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 Patient reports worsening exertional dyspnea, orthopnea, increased dry cough, anorexia, O2 sats below baseline while on home O2 (93 at rest from normal 97 and 85 on exertion), LE edema L>R as well as burning nonradiating mid sternal pain since this AM. She reports compliance with home meds but states that her cardilogist d/cd her digoxin 3 w ago. She denies increasing salt intake. 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 Cardio/Vascular: Yes: AFIB, Aortic Stenosis (s/p AVR), CAD, CHF (Chronic combined systolic/diastolic HF), HTN, Hyperlipdemia, Murmur, Other (aortic valve replacement) Pulmonary: Yes: COPD, Other (paralyzed diaghragm) ...: No Psych: Yes: Anxiety, Depression, Panic Musculoskeletal: Yes: Chronic low back pain Endocrine: Yes: Hypothyroidism - Past Surgical History Past Surgical History: Yes: Appendectomy, CABG, Cholecystectomy, , Hysterectomy, Valve Replacement (AVR) - Alcohol/Substance Use Hx Alcohol Use: No History of Substance Use: reports: None - Smoking History Smoking history: Former smoker Have you smoked in the past 12 months: No Aproximately how many cigarettes per day: 0 If you are a former smoker, when did you quit?: 21 YRS - Social History Usual Living Arrangement: With Spouse ADL: Independent Place of : [place] History of Recent Travel: No Home Medications - Allergies Allergies/Adverse Reactions: Allergies Allergy/AdvReac Type Severity Reaction Status Date / Time albuterol Allergy Hives Verified 11/04/16 15:35 ciprofloxacin Allergy Rash Verified 11/04/16 15:35 clindamycin Allergy Hives Verified 11/04/16 15:35 lactose [Lactose] Allergy Nausea Verified 11/04/16 15:35 levofloxacin [From Levaquin] Allergy Rash Verified 11/04/16 15:35 Penicillins Allergy Swelling Verified 11/04/16 15:35 Shellfish Allergy Difficulty Verified 11/04/16 15:35 Breathing Sulfa (Sulfonamide Allergy Rash Verified 11/04/16 15:35 Antibiotics) trimethobenzamide HCl Allergy Rash Verified 11/04/16 15:35 [From Tigan] atorvastatin calcium AdvReac Unknown "muscle Verified 11/04/16 15:35 [From Lipitor] weakness" morphine AdvReac Unknown blurred Verified 11/04/16 15:35 vision - Home Medications Home Medications: Ambulatory Orders Aspirin [ASA -] 81 mg PO DAILY 08/10/15 Budesonide/Formeterol Fumarate [SYMBICORT 80/4.5mcg -] 1 inh PO BID 08/10/15 Tiotropium [place] [Spiriva] 1 inh PO DAILY 08/10/15 Levothyroxine [Synthroid -] 75 mcg PO DAILY 09/16/15 Metoprolol Succinate [Toprol XL -] 25 mg PO BID #60 tab.sr.24h 09/24/15 Docusate Sodium [Colace -] 100 mg PO BID 11/06/15 Clopidogrel Bisulfate [Clopidogrel] 75 mg PO DAILY 03/18/16 Furosemide [Lasix -] 40 mg PO BID 03/18/16 Simvastatin [Zocor -] 40 mg PO HS 03/18/16 Spironolactone 12.5 mg PO BID 11/04/16 Family Disease History - Family Disease History Family History: Unremarkable Review of Systems - Review of Systems Constitutional: denies: Fever Eyes: denies: Blurred Vision HENT: denies: Difficult Swallowing Neck: denies: Decreased ROM Cardiovascular: denies: Chest Pain Respiratory: reports: SOB, SOB on Exertion. denies: Hemoptysis Gastrointestinal: reports: No Symptoms Genitourinary: reports: No Symptoms Physical Exam Vital Sings: Vital Signs Temperature 97.8 F 11/06/16 10:00 Pulse Rate 90 11/06/16 10:00 Respiratory Rate 22 11/06/16 10:00 Blood Pressure 106/59 11/06/16 10:00 O2 Sat by Pulse Oximetry (%) 97 11/06/16 09:00 Constitutional: Yes: Calm Eyes: Yes: EOM Intact HENT: Yes: Normocephalic Neck: Yes: Trachea Midline Cardiovascular: Yes: Pulse Irregular, S1, S2 Respiratory: Yes: On Nasal O2, Rales (BIBASILAR) Gastrointestinal: Yes: Normal Bowel Sounds Edema: LUE: 1+, RUE: 1+ Neurological: Yes: Alert Labs: CBC, BMP 11/06/16 05:35 11/06/16 05:35 REST REVIEWED Imaging - Results Chest X-ray: Report Reviewed, Image Reviewed Problem List - Problems (1) CHF NYHA class III Code(s): I50.9 - HEART FAILURE, UNSPECIFIED (2) CHF exacerbation Code(s): I50.9 - HEART FAILURE, UNSPECIFIED Qualifiers: Congestive heart failure type: unspecified congestive heart failure type Qualified Code(s): I50.9 - Heart failure, unspecified (3) Respiratory failure Code(s): J96.90 - RESPIRATORY FAILURE, UNSP, UNSP W HYPOXIA OR HYPERCAPNIA (4) Shortness of breath Code(s): R06.02 - SHORTNESS OF BREATH
--- NOTE | 2016-11-06 18:14 | EKG ---
Test Reason : Blood Pressure : / mmHG Vent. Rate : 093 BPM Atrial Rate : 089 BPM P-R Int : 000 ms QRS Dur : 156 ms QT Int : 410 ms P-R-T Axes : 061 136 -36 degrees QTc Int : 509 ms AV SEQUENTIAL OR DUAL CHAMBER ELECTRONIC PACEMAKER IS SENSING AND PACING APPROPRIATELY OCCASIONAL VPBs ATTIMES SUCCESSIVE. OCCASSIONAL FUSION BEATS WHEN COMPARED [id number] APPEARANCE OF VPBs CORRELATE CLINICALLY Confirmed by RENAY BARFIELD MD ([id number]) on 11/06/2016 6:13:35 PM Referred By: Brionna FARRIS Confirmed By:RENAY BARFIELD MD
[2016-11-06] MEDS: ROSUVASTATIN CA 20 MG TABLET (FP) PO SCH (21:31)
[2016-11-07] MEDS: LEVOTHYROXINE NA 75 MCG TABLET (FP) PO SCH (06:24)
[2016-11-07] MEDS: FUROSEMIDE 40 MG/4 ML INJECTABLE VIAL IVPUSH SCH ×2 (06:24→13:08)
[2016-11-07 07:59] LABS: ANION GAP 8 (8-16); CO2 35 mmol/L (21-32); CREATININE 0.9 mg/dL (0.55-1.02); GLUCOSE,RANDOM 96 mg/dL (74-106); MAGNESIUM 2.6 mg/dL (1.8-2.4)
--- NOTE | 2016-11-07 09:09 | PN ---
Progress Note, Physician Chief Complaint: Pt less dyspneic when ambulating across the room. History of Present Illness: This is an 81 yo white female with h/o CHF, COPD, bronchitis, HTN, aortic valve replacement (c/b phrenic nerve damage and subsequent diaphragm dysfunction), and pacemaker use who presents c/o shortness of breath since yesterday morning. She was taken off her regular digoxin about 3 weeks ago. She notes that this has worsened since the onset and is similar to her prior episodes of CHF exacerbation. She measured her pulse oxygenation to be in the mid-80s at home on room air, and she turned on her supplemental oxygen to 3 LPM with slower-than -normal improvement for her baseline. Her only other additional symptoms have been foot/ankle swelling on both sides, and mid-epigastric/lower mid-chest burning sensation this morning. She stopped taking her normal digoxin at the request of her regular doctor a few weeks ago, and also was treated 2-3 weeks ago for a bronchitis with Prednisone and a Z-pack, which she took as prescribed. - Current Medication List Current Medications: Active Medications Aclidinium [place] (Tudorza -) 1 puff IH BID [facility] Last Admin: 11/06/16 21:32 Dose: 1 puff Aspirin (Asa -) 81 mg PO DAILY [facility] Last Admin: 11/06/16 10:10 Dose: 81 mg Budesonide/Formoterol Fumarate (Symbicort 80/4.5mcg -) 1 puff IH BID [facility] Last Admin: 11/06/16 21:31 Dose: 1 puff Clopidogrel Bisulfate (Plavix -) 75 mg PO DAILY [facility] Last Admin: 11/06/16 10:10 Dose: 75 mg Docusate Sodium (Colace -) 100 mg PO BID [facility] Last Admin: 11/06/16 21:30 Dose: 100 mg Furosemide (Lasix Injection -) 40 mg IVPUSH BIDLASIX [facility] Last Admin: 11/07/16 06:24 Dose: 40 mg Heparin Sodium (Porcine) (Heparin -) 5,000 unit SQ BID [facility] Last Admin: 11/06/16 21:31 Dose: 5,000 unit Levothyroxine Sodium (Synthroid -) 75 mcg PO DAILY@0700 [facility] Last Admin: 11/07/16 06:24 Dose: 75 mcg Lisinopril (Prinivil) 2.5 mg PO DAILY [facility] Last Admin: 11/06/16 10:10 Dose: 2.5 mg Metoprolol Succinate (Toprol Xl -) 25 mg PO BID [facility] Last Admin: 11/06/16 21:32 Dose: 25 mg Pantoprazole Sodium (Protonix -) 40 mg PO DAILY [facility] Last Admin: 11/06/16 10:10 Dose: 40 mg Rosuvastatin Calcium (Crestor -) 20 mg PO HS [facility] Last Admin: 11/06/16 21:31 Dose: Not Given Spironolactone (Aldactone -) 12.5 mg PO BID [facility] Last Admin: 11/06/16 21:30 Dose: 12.5 mg - Objective Vital Signs: Vital Signs Temperature 97.6 F 11/07/16 06:00 Pulse Rate 68 11/07/16 06:00 Respiratory Rate 20 11/07/16 06:00 Blood Pressure 103/54 11/07/16 06:00 O2 Sat by Pulse Oximetry (%) 100 11/07/16 06:00 Constitutional: Yes: Anxious Eyes: Yes: WNL HENT: Yes: WNL Neck: Yes: WNL Cardiovascular: Yes: S1, S2 (split) Respiratory: Yes: Diminished Gastrointestinal: Yes: Soft ...Rectal Exam: Yes: Deferred Genitourinary: No: Anuria Breast(s): Yes: WNL Musculoskeletal: Yes: Muscle Weakness Extremities: Yes: Cool Edema: Yes Edema: LLE: Trace, RLE: Trace Peripheral Pulses WNL: No Peripheral Pulses: Left Doralis Pedis: 1+, Right Dorsalis Pedis: 1+ Neurological: Yes: Alert, Oriented, Weakness Psychiatric: Yes: Other (anxiety/depression) Labs: CBC, BMP 11/06/16 05:35 11/07/16 06:00 INR, PTT INR 1.08 (0.82-1.09) 11/05/16 05:35 - ....Imaging Other: Image Reviewed (telemetry: AV pacing; occasional PVCs) Problem List - Problems (1) Shortness of breath Assessment/Plan: severe systolic CHF; COPD. Code(s): R06.02 - SHORTNESS OF BREATH (2) Systolic and diastolic CHF w/reduced LV function, NYHA class 4 Assessment/Plan: severely reduced LVEF. metoprolol,; spironolactone; lisinopril,; IV furosemide. F/u BUN/Cr, Is and Os, daily weight, electrolytes. Code(s): I50.40 - UNSP COMBINED SYSTOLIC AND DIASTOLIC (CONGESTIVE) HRT FAIL (3) Anxiety 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 Code(s): F41.0 - PANIC DISORDER WITHOUT AGORAPHOBIA (4) Aortic valve replaced Code(s): Z95.2 - PRESENCE OF PROSTHETIC HEART VALVE (5) COPD bronchitis Assessment/Plan: . desaturates just walking across the room, though improving. Treating acute/chronic systolic CHF. On O2; f/u with three dimensional map modeler. Code(s): J44.9 - CHRONIC OBSTRUCTIVE PULMONARY DISEASE, UNSPECIFIED (6) Hx of CABG Code(s): Z95.1 - PRESENCE OF AORTOCORONARY BYPASS GRAFT (7) Hyperlipidemia Assessment/Plan: on rosuvastatin 20 mg daily. Code(s): E78.5 - HYPERLIPIDEMIA, UNSPECIFIED (8) Hypertension Code(s): I10 - ESSENTIAL (PRIMARY) HYPERTENSION (9) ICD (implantable cardioverter-defibrillator) in place Code(s): Z95.810 - PRESENCE OF AUTOMATIC (IMPLANTABLE) CARDIAC DEFIBRILLATOR (10) Sleep apnea in adult Code(s): G47.33 - OBSTRUCTIVE SLEEP APNEA (ADULT) (PEDIATRIC) (11) Nonsustained ventricular tachycardia Assessment/Plan: Severely decreased LVEF and severe LV dilation. Continue metoprolol and aldactone. Add ACEI. F/u electrolytes. Code(s): I47.2 - VENTRICULAR TACHYCARDIA
--- NOTE | 2016-11-07 09:53 | EKG ---
Test Reason : Blood Pressure : / mmHG Vent. Rate : 096 BPM Atrial Rate : 096 BPM P-R Int : 190 ms QRS Dur : 104 ms QT Int : 380 ms P-R-T Axes : 062 -42 115 degrees QTc Int : 480 ms Atrial-sensed ventricular-paced rhythm ABNORMAL ECG WHEN COMPARED WITH ECG OF 18-MAR-2016 18:36, PREMATURE VENTRICULAR COMPLEXES ARE NO LONGER SEEN Confirmed by CELIO ZAMARRIPA MD ([id number]) on 11/07/2016 9:52:55 AM Referred By: Confirmed By:CELIO ZAMARRIPA MD
[2016-11-07] MEDS: SPIRONOLACTONE 25 MG TABLET (FP) PO SCH ×2 (09:59→21:18)
[2016-11-07] MEDS: PANTOPRAZOLE 40 MG TABLET (FP) PO SCH (09:59)
[2016-11-07] MEDS: LISINOPRIL 5 MG TABLET (FP) PO SCH (09:59)
[2016-11-07] MEDS: DOCUSATE SODIUM 100 MG CAPSULE (FP) PO SCH ×2 (09:59→21:18)
[2016-11-07] MEDS: ASPIRIN 81 MG CHEWABLE TABLETS PO SCH (09:59)
[2016-11-07] MEDS: METOPROLOL SUCCINATE 25 MG TAB.SR.24H (FP) PO SCH ×2 (09:59→21:18)
[2016-11-07] MEDS: HEPARIN NA (PORCINE) 5,000 UNITS/ML 1ML VIAL SQ SCH ×2 (10:00→22:00)
[2016-11-07] MEDS: CLOPIDOGREL BISULFATE 75 MG TABLET (FP) PO SCH (10:00)
[2016-11-07] MEDS: ACLIDINIUM BROMIDE 400 MCG/INH AERO.POWD IH SCH ×2 (10:00→21:19)
[2016-11-07] MEDS: BUDESONIDE/FORMETEROL FUMARATE 80/4.5 mcg INHALER IH SCH ×2 (10:01→21:19)
--- NOTE | 2016-11-07 10:33 | PN ---
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 She was taken off her regular digoxin about 3 weeks ago. She notes that this has worsened since the onset and is similar to her prior episodes of CHF exacerbation. She measured her pulse oxygenation to be in the mid-80s at home on room air, and she turned on her supplemental oxygen to 3 LPM with slower-than -normal improvement for her baseline. Her only other additional symptoms have been foot/ankle swelling on both sides, and mid-epigastric/lower mid-chest burning sensation this morning. She stopped taking her normal digoxin at the request of her regular doctor a few weeks ago, and also was treated 2-3 weeks ago for a bronchitis with Prednisone and a Z-pack, which she took as prescribed. - Current Medication List Current Medications: Active Medications Aclidinium [place] (Tudorza -) 1 puff IH BID [facility] Last Admin: 11/07/16 10:00 Dose: 1 puff Aspirin (Asa -) 81 mg PO DAILY [facility] Last Admin: 11/07/16 09:59 Dose: 81 mg Budesonide/Formoterol Fumarate (Symbicort 80/4.5mcg -) 1 puff IH BID [facility] Last Admin: 11/07/16 10:01 Dose: 1 puff Clopidogrel Bisulfate (Plavix -) 75 mg PO DAILY [facility] Last Admin: 11/07/16 10:00 Dose: 75 mg Docusate Sodium (Colace -) 100 mg PO BID [facility] Last Admin: 11/07/16 09:59 Dose: 100 mg Furosemide (Lasix Injection -) 40 mg IVPUSH BIDLASIX [facility] Last Admin: 11/07/16 06:24 Dose: 40 mg Heparin Sodium (Porcine) (Heparin -) 5,000 unit SQ BID [facility] Last Admin: 11/07/16 10:00 Dose: 5,000 unit Levothyroxine Sodium (Synthroid -) 75 mcg PO DAILY@0700 [facility] Last Admin: 11/07/16 06:24 Dose: 75 mcg Lisinopril (Prinivil) 2.5 mg PO DAILY [facility] Last Admin: 11/07/16 09:59 Dose: 2.5 mg Metoprolol Succinate (Toprol Xl -) 25 mg PO BID [facility] Last Admin: 11/07/16 09:59 Dose: 25 mg Pantoprazole Sodium (Protonix -) 40 mg PO DAILY [facility] Last Admin: 11/07/16 09:59 Dose: 40 mg Rosuvastatin Calcium (Crestor -) 20 mg PO HS [facility] Last Admin: 11/06/16 21:31 Dose: Not Given Spironolactone (Aldactone -) 12.5 mg PO BID [facility] Last Admin: 11/07/16 09:59 Dose: 12.5 mg - Objective Vital Signs: Vital Signs Temperature 97.6 F 11/07/16 06:00 Pulse Rate 68 11/07/16 06:00 Respiratory Rate 20 11/07/16 06:00 Blood Pressure 103/54 11/07/16 06:00 O2 Sat by Pulse Oximetry (%) 100 11/07/16 06:00 Eyes: Yes: WNL, Conjunctiva Clear, EOM Intact HENT: Yes: WNL, Atraumatic, Normocephalic Neck: Yes: WNL, Supple, Trachea Midline Cardiovascular: Yes: WNL, Regular Rate and Rhythm, Murmur, S1, S2 Respiratory: Yes: Poor Air Entry Gastrointestinal: Yes: WNL, Normal Bowel Sounds Genitourinary: Yes: WNL Musculoskeletal: Yes: WNL Extremities: Yes: WNL Edema: No Integumentary: Yes: WNL Neurological: Yes: WNL, Alert, Oriented ...Motor Strength: WNL Psychiatric: Yes: WNL Labs: CBC, BMP 11/06/16 05:35 11/07/16 06:00 INR, PTT INR 1.08 (0.82-1.09) 11/05/16 05:35 Assessment/Plan - Problems (1) Shortness of breath Assessment/Plan: systolic CHF; COPD. echo pending Code(s): R06.02 - SHORTNESS OF BREATH (2) Systolic and diastolic CHF w/reduced LV function, NYHA class 4 Assessment/Plan: severely reduced LVEF. metoprolol,; spironolactone; lisinopril,; IV furosemide. F/u BUN/Cr, Is and Os, daily weight, electrolytes. Code(s): I50.40 - UNSP COMBINED SYSTOLIC AND DIASTOLIC (CONGESTIVE) HRT FAIL (3) Anxiety 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 Code(s): F41.0 - PANIC DISORDER WITHOUT AGORAPHOBIA (4) Aortic valve replaced Code(s): Z95.2 - PRESENCE OF PROSTHETIC HEART VALVE (5) COPD bronchitis Assessment/Plan: . desaturates just walking across the room Treating acute/chronic systolic CHF. On O2; f/u with medical and scientific illustrator. Code(s): J44.9 - CHRONIC OBSTRUCTIVE PULMONARY DISEASE, UNSPECIFIED (6) Hx of CABG Code(s): Z95.1 - PRESENCE OF AORTOCORONARY BYPASS GRAFT (7) Hyperlipidemia Assessment/Plan: on rosuvastatin 20 mg daily. Code(s): E78.5 - HYPERLIPIDEMIA, UNSPECIFIED (8) Hypertension Code(s): I10 - ESSENTIAL (PRIMARY) HYPERTENSION (9) ICD (implantable cardioverter-defibrillator) in place Code(s): Z95.810 - PRESENCE OF AUTOMATIC (IMPLANTABLE) CARDIAC DEFIBRILLATOR NSVT - cont monitoring (10) Sleep apnea in adult Code(s): G47.33 - OBSTRUCTIVE SLEEP APNEA (ADULT) (PEDIATRIC) (11) Nonsustained ventricular tachycardia Assessment/Plan: Severely decreased LVEF and severe LV dilation. Continue metoprolol and aldactone. Add ACEI. F/u electrolytes. Code(s): I47.2 - VENTRICULAR TACHYCARDIA
--- NOTE | 2016-11-07 11:20 | PN ---
Progress Note, Physician History of Present Illness: pulmonary alert,sitting up in bed,less dyspneic .-cp - Current Medication List Current Medications: Active Medications Aclidinium [place] (Tudorza -) 1 puff IH BID [facility] Last Admin: 11/07/16 10:00 Dose: 1 puff Aspirin (Asa -) 81 mg PO DAILY [facility] Last Admin: 11/07/16 09:59 Dose: 81 mg Budesonide/Formoterol Fumarate (Symbicort 80/4.5mcg -) 1 puff IH BID [facility] Last Admin: 11/07/16 10:01 Dose: 1 puff Clopidogrel Bisulfate (Plavix -) 75 mg PO DAILY [facility] Last Admin: 11/07/16 10:00 Dose: 75 mg Docusate Sodium (Colace -) 100 mg PO BID [facility] Last Admin: 11/07/16 09:59 Dose: 100 mg Furosemide (Lasix Injection -) 40 mg IVPUSH BIDLASIX [facility] Last Admin: 11/07/16 06:24 Dose: 40 mg Heparin Sodium (Porcine) (Heparin -) 5,000 unit SQ BID [facility] Last Admin: 11/07/16 10:00 Dose: 5,000 unit Levothyroxine Sodium (Synthroid -) 75 mcg PO DAILY@0700 [facility] Last Admin: 11/07/16 06:24 Dose: 75 mcg Lisinopril (Prinivil) 2.5 mg PO DAILY [facility] Last Admin: 11/07/16 09:59 Dose: 2.5 mg Metoprolol Succinate (Toprol Xl -) 25 mg PO BID [facility] Last Admin: 11/07/16 09:59 Dose: 25 mg Pantoprazole Sodium (Protonix -) 40 mg PO DAILY [facility] Last Admin: 11/07/16 09:59 Dose: 40 mg Rosuvastatin Calcium (Crestor -) 20 mg PO HS [facility] Last Admin: 11/06/16 21:31 Dose: Not Given Spironolactone (Aldactone -) 12.5 mg PO BID [facility] Last Admin: 11/07/16 09:59 Dose: 12.5 mg - Objective Vital Signs: Vital Signs Temperature 98.9 F 11/07/16 10:00 Pulse Rate 80 11/07/16 10:00 Respiratory Rate 22 11/07/16 10:00 Blood Pressure 95/49 11/07/16 10:00 O2 Sat by Pulse Oximetry (%) 100 11/07/16 06:00 Constitutional: Yes: Well Nourished, Calm Eyes: Yes: WNL HENT: Yes: WNL Neck: Yes: WNL Cardiovascular: Yes: Pulse Irregular, S1, S2 Respiratory: Yes: Rales (bilateral rales) Gastrointestinal: Yes: Normal Bowel Sounds, Soft Extremities: Yes: WNL Edema: No Labs: CBC, BMP 11/06/16 05:35 11/07/16 06:00 INR, PTT INR 1.08 (0.82-1.09) 11/05/16 05:35 Problem List - Problems (1) Acute on chronic systolic CHF (congestive heart failure) Code(s): I50.23 - ACUTE ON CHRONIC SYSTOLIC (CONGESTIVE) HEART FAILURE (2) Aortic valve replaced Code(s): Z95.2 - PRESENCE OF PROSTHETIC HEART VALVE (3) CAD (coronary artery disease) Code(s): I25.10 - ATHSCL HEART DISEASE OF [place] CORONARY ARTERY W/O ANG PCTRS (4) Diabetes Code(s): E11.9 - TYPE 2 DIABETES MELLITUS WITHOUT COMPLICATIONS (5) Hx of CABG Code(s): Z95.1 - PRESENCE OF AORTOCORONARY BYPASS GRAFT (6) Hypertension Code(s): I10 - ESSENTIAL (PRIMARY) HYPERTENSION (7) ICD (implantable cardioverter-defibrillator) in place Code(s): Z95.810 - PRESENCE OF AUTOMATIC (IMPLANTABLE) CARDIAC DEFIBRILLATOR (8) Sleep apnea in adult Code(s): G47.33 - OBSTRUCTIVE SLEEP APNEA (ADULT) (PEDIATRIC) (9) Valvular heart disease Code(s): I38 - ENDOCARDITIS, VALVE UNSPECIFIED Assessment/Plan Problem List - Problems (1) CHF NYHA class III Code(s): I50.9 - HEART FAILURE, UNSPECIFIED (2) CHF exacerbation Code(s): I50.9 - HEART FAILURE, UNSPECIFIED Qualifiers: Congestive heart failure type: unspecified congestive heart failure type Qualified Code(s): I50.9 - Heart failure, unspecified (3) Respiratory failure Code(s): J96.90 - RESPIRATORY FAILURE, UNSP, UNSP W HYPOXIA OR HYPERCAPNIA (4) Shortness of breath Code(s): R06.02 - SHORTNESS OF BREATH 5 ASHD S/P CABG 6 AFIB 7 S/P AVR 8 JERALD plan lasix O2 inhaled bronchodilators chest x-ray plavix DR MORRISSEY
--- NOTE | 2016-11-07 12:06 | PN ---
Teaching Attending Note Name of Resident: Lance Walters ATTENDING PHYSICIAN STATEMENT I saw and evaluated the patient. I reviewed the resident's note and discussed the case with the resident. I agree with the resident's findings and plan as documented. SUBJECTIVE:breathing improved. was able to ambulate to the bathroom however did become SOB when ambulating back to her bed. denies CP, fever, chills, N/V/C/D OBJECTIVE: Last Vital Signs Temp Pulse Resp BP Pulse Ox 98.9 F 80 22 95/49 100 11/07/16 10:00 11/07/16 10:00 11/07/16 10:00 11/07/16 10:00 11/07/16 06:00 Intake & Output 11/04/16 11/05/16 11/06/16 11/07/16 23:59 23:59 23:59 23:59 Intake Total 370 380 330 210 Balance 370 380 330 210 Weight 157 lb 161 lb 3.2 oz 161 lb 161 lb 3 oz General NAD Lungs CTA B/L no wheezing or crackles. 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 1. Acute CHF exacerbation-likley due to increased salt intake (high cheese diet) . clinically improved, no more crackles. contraction alkalosis noted on labs. will transition to lasix po for the morning. cont strict I&O, daily weights. cont spirolactone, lopressor, asa, plavix 2. Leukocytosis- afebrile. likely reactive. no signs of infection. no indication for abx. 3. COPD- on 3L NC which is what she is on at home. no signs of COPD exacerbation. cont inhalers 4. dyslipidemia- cont statin 5. hypothyroid- cont Lt4 6. DVT ppx- hep sq 7. d/c planning for the morning. pt is very anxious about going home. re- assured her that she will cont to slowly improve and that each day she is walking further without difficulty indicating her improvement. verbalized agreement
[2016-11-07] MEDS: FUROSEMIDE 40 MG TABLET (FP) PO SCH (15:00)
--- NOTE | 2016-11-07 15:38 | PN ---
Physical Exam: SUBJECTIVE: Patient seen and examined Patient feels improved from yesterday but not back to her baseline. OBJECTIVE: Vital Signs Period Temp Pulse Resp BP Sys/Camilo Pulse Ox Last 24 Hr 97.6 F-98.9 F 67-80 20-22 94-109/47-55 96-100 GENERAL: Awake, alert, and fully oriented, in no acute distress on 3L of O2 HEAD: Normal with no signs of trauma. EYES: Extraocular movements intact, sclera anicteric, conjunctiva clear. No lid lag. EARS, NOSE, THROAT: Ears normal, nares patent, oropharynx clear without exudates. Moist mucous membranes. NECK: Normal range of motion, supple without lymphadenopathy, No JVD, or masses. LUNGS: Breath sounds equal, Bilateral crackles at the bases. No accessory muscle use. HEART: Regular rate and rhythm, normal S1 and S2 without murmur, rub or gallop. ABDOMEN: Soft, nontender, not distended, normoactive bowel sounds, no guarding, no rebound, no masses. No hepatomegaly or splenomegaly. MUSCULOSKELETAL: Normal range of motion at all joints. No bony deformities or tenderness. No CVA tenderness. UPPER EXTREMITIES: 2+ pulses, warm, well-perfused. No cyanosis. No clubbing. No peripheral edema. LOWER EXTREMITIES: 2+ pulses, warm, well-perfused. No calf tenderness. No edema NEUROLOGICAL: Cranial nerves II-XII intact. Normal speech. Normal gait. PSYCHIATRIC: Cooperative. Good eye contact. Appropriate mood and affect. SKIN: Warm, dry, normal turgor, no rashes or lesions noted, normal capillary refill. Laboratory Results - last 24 hr 11/07/16 06:00 Sodium 138 Potassium 4.9 D Chloride 95 L Carbon Dioxide 35 H Anion Gap 8 BUN 26 H Creatinine 0.9 Random Glucose 96 Calcium 9.0 Magnesium 2.6 H Active Medications Generic Name Dose Route Start Last Admin Trade Name Freq PRN Reason Stop Dose Admin Aclidinium [place] 1 puff 11/04/16 22:00 11/07/16 10:00 Tudorza - IH 1 puff BID MAGO Administration Aspirin 81 mg 11/05/16 10:00 11/07/16 09:59 Asa - PO 81 mg DAILY MAGO Administration Budesonide/Formoterol Fumarate 1 puff 11/04/16 22:00 11/07/16 10:01 Symbicort 80/4.5mcg - IH 1 puff BID MAGO Administration Clopidogrel Bisulfate 75 mg 11/05/16 10:00 11/07/16 10:00 Plavix - PO 75 mg DAILY MAGO Administration Docusate Sodium 100 mg 11/04/16 22:00 11/07/16 09:59 Colace - PO 100 mg BID MAGO Administration Furosemide 40 mg 11/07/16 14:00 11/07/16 15:00 Lasix - PO Not Given BID@0600,1400 [facility] Heparin Sodium (Porcine) 5,000 unit 11/05/16 10:00 11/07/16 10:00 Heparin - SQ 5,000 unit BID [facility] Administration Levothyroxine Sodium 75 mcg 11/05/16 07:00 11/07/16 06:24 Synthroid - PO 75 mcg DAILY@0700 [facility] Administration Lisinopril 2.5 mg 11/06/16 10:00 11/07/16 09:59 Prinivil PO 2.5 mg DAILY MAGO Administration Metoprolol Succinate 25 mg 11/05/16 10:00 11/07/16 09:59 Toprol Xl - PO 25 mg BID [facility] Administration Pantoprazole Sodium 40 mg 11/05/16 10:00 11/07/16 09:59 Protonix - PO 40 mg DAILY MAGO Administration Rosuvastatin Calcium 20 mg 11/04/16 22:00 11/06/16 21:31 Crestor - PO Not Given [facility] Spironolactone 12.5 mg 11/04/16 23:15 11/07/16 09:59 Aldactone - PO 12.5 mg BID MAGO Administration ASSESSMENT/PLAN: 81 yo female with h/o CHF, COPD, bronchitis, HTN, 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 #Acute CHF exacerbation, NYHA class 3, Improving -Patient went on high cheese diet prior to admission -Switch IV lasix to PO lasix 40 mg BID -Cardiology on board, Dr. Ingram -Echo ordered -I&O -Daily weights -Continue home metoprolol 25 mg BID, spironolactone 12.5 mg BID, asa 81 mg daily, lisinopril 2.5 mg daily and plavix 75 mg daily #Leukocytosis -CXR, no evidence of consolidation -Afebrile -VSS #CAD s/p CABG, aortic valve replacement and AICD -Cardiology on board -Continue home medications- Aspirin 81 mg, metoprolol 25 mg bid, plavix 75 mg daily -Telemetry monitoring #HLD -Crestor 20 mg HS (no simvastatin on formulary) -Lipid panel pending #COPD, on Home 3L -Continue tudorza and symbicort #Hypothyroidism -Continue synthroid 75 mcg daily #PPX -DVT- heparin 5000 units BID -GI- not indicated #FEN/GI -No fluids -electrolytes wnl -Sodium controlled diet Visit type - Emergency Visit Emergency Visit: No - New Patient This patient is new to me today: No - Critical Care Critical Care patient: No
[2016-11-07] MEDS ORDERED: ACETAMINOPHEN 325 MG TABLET (FP) PO ONE (20:44)
[2016-11-07] MEDS: ROSUVASTATIN CA 20 MG TABLET (FP) PO SCH (21:20)
[2016-11-08] MEDS: LEVOTHYROXINE NA 75 MCG TABLET (FP) PO SCH ×2 (05:21→22:47)
[2016-11-08] MEDS: FUROSEMIDE 40 MG TABLET (FP) PO SCH ×2 (05:21→14:04)
[2016-11-08] MEDS ORDERED: ACETAMINOPHEN 325 MG TABLET (FP) PO PRN (08:39)
[2016-11-08 09:12] LABS: ANION GAP 10 (8-16); CALCIUM 8.8 mg/dL (8.5-10.1); CO2 33 mmol/L (21-32); CREATININE 0.9 mg/dL (0.55-1.02); GLUCOSE,RANDOM 93 mg/dL (74-106); MAGNESIUM 2.6 mg/dL (1.8-2.4); PHOSPHOROUS 3.2 mg/dL (2.5-4.9)
[2016-11-08] MEDS: DOCUSATE SODIUM 100 MG CAPSULE (FP) PO SCH ×2 (10:05→22:48)
[2016-11-08] MEDS: ASPIRIN 81 MG CHEWABLE TABLETS PO SCH (10:18)
[2016-11-08] MEDS: PANTOPRAZOLE 40 MG TABLET (FP) PO SCH (10:18)
[2016-11-08] MEDS: METOPROLOL SUCCINATE 25 MG TAB.SR.24H (FP) PO SCH ×2 (10:18→22:48)
[2016-11-08] MEDS: HEPARIN NA (PORCINE) 5,000 UNITS/ML 1ML VIAL SQ SCH ×3 (10:18→22:53)
[2016-11-08] MEDS: CLOPIDOGREL BISULFATE 75 MG TABLET (FP) PO SCH (10:18)
[2016-11-08] MEDS: LISINOPRIL 5 MG TABLET (FP) PO SCH (10:18)
[2016-11-08] MEDS: SPIRONOLACTONE 25 MG TABLET (FP) PO SCH ×2 (10:19→22:48)
[2016-11-08] MEDS: BUDESONIDE/FORMETEROL FUMARATE 80/4.5 mcg INHALER IH SCH ×2 (10:21→22:49)
[2016-11-08] MEDS: ACLIDINIUM BROMIDE 400 MCG/INH AERO.POWD IH SCH ×2 (10:21→22:49)
--- NOTE | 2016-11-08 10:26 | PN ---
Progress Note, Physician History of Present Illness: pulmonary alert,oob-chair,-sob at rest,+[place] . - Current Medication List Current Medications: Active Medications Acetaminophen (Tylenol -) 650 mg PO Q4H PRN PRN Reason: FEVER OR PAIN Aclidinium [place] (Tudorza -) 1 puff IH BID [facility] Last Admin: 11/07/16 21:19 Dose: 1 puff Aspirin (Asa -) 81 mg PO DAILY [facility] Last Admin: 11/07/16 09:59 Dose: 81 mg Budesonide/Formoterol Fumarate (Symbicort 80/4.5mcg -) 1 puff IH BID [facility] Last Admin: 11/07/16 21:19 Dose: 1 puff Clopidogrel Bisulfate (Plavix -) 75 mg PO DAILY [facility] Last Admin: 11/07/16 10:00 Dose: 75 mg Docusate Sodium (Colace -) 100 mg PO BID [facility] Last Admin: 11/07/16 21:18 Dose: 100 mg Furosemide (Lasix -) 40 mg PO BID@0600,1400 [facility] Last Admin: 11/08/16 05:21 Dose: 40 mg Heparin Sodium (Porcine) (Heparin -) 5,000 unit SQ BID [facility] Last Admin: 11/07/16 22:00 Dose: 5,000 unit Levothyroxine Sodium (Synthroid -) 75 mcg PO DAILY@0700 [facility] Last Admin: 11/08/16 05:21 Dose: 75 mcg Lisinopril (Prinivil) 2.5 mg PO DAILY [facility] Last Admin: 11/07/16 09:59 Dose: 2.5 mg Metoprolol Succinate (Toprol Xl -) 25 mg PO BID [facility] Last Admin: 11/07/16 21:18 Dose: 25 mg Pantoprazole Sodium (Protonix -) 40 mg PO DAILY [facility] Last Admin: 11/07/16 09:59 Dose: 40 mg Rosuvastatin Calcium (Crestor -) 20 mg PO HS [facility] Last Admin: 11/07/16 21:20 Dose: 20 mg Spironolactone (Aldactone -) 12.5 mg PO BID [facility] Last Admin: 11/07/16 21:18 Dose: 12.5 mg - Objective Vital Signs: Vital Signs Temperature 97.8 F 11/08/16 09:00 Pulse Rate 73 11/08/16 09:00 Respiratory Rate 18 11/08/16 09:00 Blood Pressure 111/62 11/08/16 09:00 O2 Sat by Pulse Oximetry (%) 96 11/07/16 20:23 Constitutional: Yes: Well Nourished, Calm Eyes: Yes: WNL HENT: Yes: WNL Neck: Yes: WNL Cardiovascular: Yes: Regular Rate and Rhythm, S1, S2 Respiratory: Yes: Rales (bilateral rales) Gastrointestinal: Yes: Normal Bowel Sounds, Soft Extremities: Yes: WNL Edema: Yes Labs: CBC, BMP 11/08/16 05:43 INR, PTT INR 1.08 (0.82-1.09) 11/05/16 05:35 - ....Imaging Chest X-ray: Report Reviewed, Image Reviewed Problem List - Problems (1) Acute on chronic systolic CHF (congestive heart failure) Code(s): I50.23 - ACUTE ON CHRONIC SYSTOLIC (CONGESTIVE) HEART FAILURE (2) Aortic valve replaced Code(s): Z95.2 - PRESENCE OF PROSTHETIC HEART VALVE (3) CAD (coronary artery disease) Code(s): I25.10 - ATHSCL HEART DISEASE OF [place] CORONARY ARTERY W/O ANG PCTRS (4) Diabetes Code(s): E11.9 - TYPE 2 DIABETES MELLITUS WITHOUT COMPLICATIONS (5) Hx of CABG Code(s): Z95.1 - PRESENCE OF AORTOCORONARY BYPASS GRAFT (6) Hypertension Code(s): I10 - ESSENTIAL (PRIMARY) HYPERTENSION (7) ICD (implantable cardioverter-defibrillator) in place Code(s): Z95.810 - PRESENCE OF AUTOMATIC (IMPLANTABLE) CARDIAC DEFIBRILLATOR (8) Sleep apnea in adult Code(s): G47.33 - OBSTRUCTIVE SLEEP APNEA (ADULT) (PEDIATRIC) (9) Valvular heart disease Code(s): I38 - ENDOCARDITIS, VALVE UNSPECIFIED Assessment/Plan Problem List - Problems (1) CHF NYHA class III Code(s): I50.9 - HEART FAILURE, UNSPECIFIED (2) CHF exacerbation Code(s): I50.9 - HEART FAILURE, UNSPECIFIED Qualifiers: Congestive heart failure type: unspecified congestive heart failure type Qualified Code(s): I50.9 - Heart failure, unspecified (3) Respiratory failure Code(s): J96.90 - RESPIRATORY FAILURE, UNSP, UNSP W HYPOXIA OR HYPERCAPNIA (4) Shortness of breath Code(s): R06.02 - SHORTNESS OF BREATH 5 ASHD S/P CABG 6 AFIB 7 S/P AVR 8 JERALD plan lasix O2 inhaled bronchodilators plavix DR MORRISSEY
--- NOTE | 2016-11-08 17:05 | PN ---
Physical Exam: SUBJECTIVE: Patient seen and examined Patient complained of headache overnight and was given tylenol which helped. Patient does not feel back to baseline this morning. She denies any headache. OBJECTIVE: Vital Signs Period Temp Pulse Resp BP Sys/Camilo Pulse Ox Last 24 Hr 97 F-98 F 73-84 18-20 91-117/43-62 96 GENERAL: Awake, alert, and fully oriented, in no acute distress on 3L of O2 HEAD: Normal with no signs of trauma. EYES: Extraocular movements intact, sclera anicteric, conjunctiva clear. No lid lag. EARS, NOSE, THROAT: Ears normal, nares patent, oropharynx clear without exudates. NECK: Normal range of motion, supple without lymphadenopathy, No JVD, or masses. LUNGS: Breath sounds equal, Bilateral crackles at the bases. No accessory muscle use. HEART: Regular rate and rhythm, normal S1 and S2 without murmur, rub or gallop. ABDOMEN: Soft, nontender, not distended, normoactive bowel sounds, no guarding, no rebound, no masses. No hepatomegaly or splenomegaly. MUSCULOSKELETAL: Normal range of motion at all joints. No bony deformities or tenderness. No CVA tenderness. UPPER EXTREMITIES: 2+ pulses, warm, well-perfused. No cyanosis. No clubbing. No peripheral edema. LOWER EXTREMITIES: 2+ pulses, warm, well-perfused. No calf tenderness. No edema NEUROLOGICAL: Cranial nerves II-XII intact. Normal speech. Normal gait. PSYCHIATRIC: Cooperative. Good eye contact. Appropriate mood and affect. SKIN: Warm, dry, normal turgor, no rashes or lesions noted, normal capillary refill. Laboratory Results - last 24 hr 11/08/16 05:43 Sodium 135 L Potassium 4.4 Chloride 92 L Carbon Dioxide 33 H Anion Gap 10 BUN 26 H Creatinine 0.9 Random Glucose 93 Calcium 8.8 Phosphorus 3.2 Magnesium 2.6 H Active Medications Generic Name Dose Route Start Last Admin Trade Name Freq PRN Reason Stop Dose Admin Acetaminophen 650 mg 11/08/16 08:39 11/08/16 14:04 Tylenol - PO 650 mg Q4H PRN Administration FEVER OR PAIN Aclidinium [place] 1 puff 11/04/16 22:00 11/08/16 10:21 Tudorza - IH 1 puff BID MAGO Administration Aspirin 81 mg 11/05/16 10:00 11/08/16 10:18 Asa - PO 81 mg DAILY MAGO Administration Budesonide/Formoterol Fumarate 1 puff 11/04/16 22:00 11/08/16 10:21 Symbicort 80/4.5mcg - IH 1 puff BID MAGO Administration Clopidogrel Bisulfate 75 mg 11/05/16 10:00 11/08/16 10:18 Plavix - PO 75 mg DAILY MAGO Administration Docusate Sodium 100 mg 11/04/16 22:00 11/08/16 10:05 Colace - PO 100 mg BID MAGO Administration Furosemide 40 mg 11/07/16 14:00 11/08/16 14:04 Lasix - PO 40 mg BID@0600,1400 MAGO Administration Heparin Sodium (Porcine) 5,000 unit 11/05/16 10:00 11/08/16 10:18 Heparin - SQ 5,000 unit BID MAGO Administration Levothyroxine Sodium 75 mcg 11/05/16 07:00 11/08/16 05:21 Synthroid - PO 75 mcg DAILY@0700 MAGO Administration Lisinopril 2.5 mg 11/06/16 10:00 11/08/16 10:18 Prinivil PO 2.5 mg DAILY MAGO Administration Metoprolol Succinate 25 mg 11/05/16 10:00 11/08/16 10:18 Toprol Xl - PO 25 mg BID MAGO Administration Pantoprazole Sodium 40 mg 11/05/16 10:00 11/08/16 10:18 Protonix - PO 40 mg DAILY MAGO Administration Rosuvastatin Calcium 20 mg 11/04/16 22:00 11/07/16 21:20 Crestor - PO 20 mg HS MAGO Administration Spironolactone 12.5 mg 11/04/16 23:15 11/08/16 10:19 Aldactone - PO 12.5 mg BID MAGO Administration ASSESSMENT/PLAN: 81 yo female with h/o CHF, COPD, bronchitis, HTN, 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 #Acute CHF exacerbation, NYHA class 3, Improving -Patient went on high cheese diet prior to admission -Still has crackles at b/l bases -Continue PO lasix 40 mg BID -Cardiology on board, Dr. Mascitelli -Echo- Severe global hypokinesis, moderately dilated L and R atrium, moderate mitral/tricuspid regurg, Right vent systolic pressure elevated 30-40 mmhg -Repeat CXR- unchanged -I&O -Daily weights -Continue home metoprolol 25 mg BID, spironolactone 12.5 mg BID, asa 81 mg daily, lisinopril 2.5 mg daily and plavix 75 mg daily #Leukocytosis -CXR, no evidence of consolidation -Afebrile -VSS #CAD s/p CABG, aortic valve replacement and AICD -Cardiology on board -Continue home medications- Aspirin 81 mg, metoprolol 25 mg bid, plavix 75 mg daily -Telemetry monitoring #HLD -Crestor 20 mg HS (no simvastatin on formulary) #COPD, on Home 3L -Continue tudorza and symbicort #Hypothyroidism -Continue synthroid 75 mcg daily #PPX -DVT- heparin 5000 units BID -GI- not indicated #FEN/GI -No fluids -electrolytes wnl -Sodium controlled diet Visit type - Emergency Visit Emergency Visit: No - New Patient This patient is new to me today: No - Critical Care Critical Care patient: No
--- NOTE | 2016-11-08 18:00 | PN ---
Teaching Attending Note Name of Resident: Lance Walters ATTENDING PHYSICIAN STATEMENT I saw and evaluated the patient. I reviewed the resident's note and discussed the case with the resident. I agree with the resident's findings and plan as documented. SUBJECTIVE: Patient feels short of breath with exertion. OBJECTIVE: Vital Signs Period Temp Pulse Resp BP Sys/Camilo Pulse Ox Last 24 Hr 97 F-98 F 73-84 18-20 91-117/43-62 96 HEART: S1S2, RRR LUNGS: Bibasilar crackles ABDOMEN: Soft, non-tender, non-distended, normal BS EXTREMITIES: No edema ASSESSMENT AND PLAN: This is an 81-year-old woman with a history of CAD, CABG, CHF, COPD, HTN, AVR, AICD who presented to the ER with shortness of breath x 2 days. 1. Acute on chronic systolic heart failure - Lasix changed to PO - Patient still reports SOBOE - Continue Aldactone - Has AICD 2. CAD, history of CABG - Continue aspirin, Plavix, Toprol XL 3. Chronic hypoxic respiratory failure secondary to COPD - Continue Symbicort, Tudorza - Continue oxygen 4. Hyperlipidemia - Continue Crestor 5. Hypothyroidism - Continue Synthroid 6. Hypertension - Continue Toprol XL, Lisinopril, Lasix, Aldactone 7. History of bioprosthetic AV replacement 8. Anxiety disorder 9. History of AICD
[2016-11-08] MEDS: ROSUVASTATIN CA 20 MG TABLET (FP) PO SCH (22:48)
--- NOTE | 2016-11-09 02:20 | PN ---
Progress Note, Physician Chief Complaint: Pt felt dizzy last night. History of Present Illness: This is an 81 yo white female with h/o CHF, COPD, bronchitis, HTN, aortic valve replacement (c/b phrenic nerve damage and subsequent diaphragm dysfunction), and pacemaker use who presents c/o shortness of breath since yesterday morning. She was taken off her regular digoxin about 3 weeks ago. She notes that this has worsened since the onset and is similar to her prior episodes of CHF exacerbation. She measured her pulse oxygenation to be in the mid-80s at home on room air, and she turned on her supplemental oxygen to 3 LPM with slower-than -normal improvement for her baseline. Her only other additional symptoms have been foot/ankle swelling on both sides, and mid-epigastric/lower mid-chest burning sensation this morning. She stopped taking her normal digoxin at the request of her regular doctor a few weeks ago, and also was treated 2-3 weeks ago for a bronchitis with Prednisone and a Z-pack, which she took as prescribed. - Current Medication List Current Medications: Active Medications Acetaminophen (Tylenol -) 650 mg PO Q4H PRN PRN Reason: FEVER OR PAIN Last Admin: 11/08/16 14:04 Dose: 650 mg Aclidinium [place] (Tudorza -) 1 puff IH BID [facility] Last Admin: 11/08/16 22:49 Dose: 1 puff Aspirin (Asa -) 81 mg PO DAILY [facility] Last Admin: 11/08/16 10:18 Dose: 81 mg Budesonide/Formoterol Fumarate (Symbicort 80/4.5mcg -) 1 puff IH BID [facility] Last Admin: 11/08/16 22:49 Dose: 1 puff Clopidogrel Bisulfate (Plavix -) 75 mg PO DAILY [facility] Last Admin: 11/08/16 10:18 Dose: 75 mg Docusate Sodium (Colace -) 100 mg PO BID [facility] Last Admin: 11/08/16 22:48 Dose: 100 mg Furosemide (Lasix -) 40 mg PO BID@0600,1400 [facility] Last Admin: 11/08/16 14:04 Dose: 40 mg Heparin Sodium (Porcine) (Heparin -) 5,000 unit SQ BID [facility] Last Admin: 11/08/16 22:53 Dose: Not Given Levothyroxine Sodium (Synthroid -) 75 mcg PO DAILY@0700 [facility] Last Admin: 11/08/16 22:47 Dose: Not Given Lisinopril (Prinivil) 2.5 mg PO DAILY [facility] Last Admin: 11/08/16 10:18 Dose: 2.5 mg Metoprolol Succinate (Toprol Xl -) 25 mg PO BID [facility] Last Admin: 11/08/16 22:48 Dose: 25 mg Pantoprazole Sodium (Protonix -) 40 mg PO DAILY [facility] Last Admin: 11/08/16 10:18 Dose: 40 mg Rosuvastatin Calcium (Crestor -) 20 mg PO HS [facility] Last Admin: 11/08/16 22:48 Dose: Not Given Spironolactone (Aldactone -) 12.5 mg PO BID [facility] Last Admin: 11/08/16 22:48 Dose: 12.5 mg - Objective Vital Signs: Vital Signs Temperature 98.1 F 11/09/16 01:00 Pulse Rate 100 H 11/09/16 01:00 Respiratory Rate 20 11/09/16 01:00 Blood Pressure 152/88 11/09/16 01:00 O2 Sat by Pulse Oximetry (%) 96 11/07/16 20:23 Constitutional: Yes: Anxious Eyes: Yes: WNL HENT: Yes: WNL Neck: Yes: WNL Cardiovascular: Yes: S1, S2 (split) Respiratory: Yes: Rhonchi (chronic at right base), Other Gastrointestinal: Yes: Soft ...Rectal Exam: Yes: Deferred Genitourinary: No: Anuria Breast(s): Yes: WNL Musculoskeletal: Yes: Joint Swelling, Muscle Weakness Extremities: Yes: Cool Edema: Yes Edema: RUE: Trace, LLE: Trace Peripheral Pulses WNL: No Peripheral Pulses: Left Doralis Pedis: 1+, Right Dorsalis Pedis: 1+ Neurological: Yes: Alert, Oriented, Weakness Psychiatric: Yes: Other Labs: CBC, BMP 11/06/16 05:35 11/08/16 05:43 INR, PTT INR 1.08 (0.82-1.09) 11/05/16 05:35 - ....Imaging Ultrasound: Image Reviewed (telemetry: AV paced rhythm) Problem List - Problems (1) Shortness of breath Assessment/Plan: severe systolic CHF; COPD. (2) Systolic and diastolic CHF w/reduced LV function, NYHA class 4 Assessment/Plan: severely reduced LVEF. metoprolol,; spironolactone; lisinopril,; IV furosemide. F/u BUN/Cr, Is and Os, daily weight, electrolytes. Code(s): I50.40 - UNSP COMBINED SYSTOLIC AND DIASTOLIC (CONGESTIVE) HRT FAIL (3) Anxiety 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 Code(s): F41.0 - PANIC DISORDER WITHOUT AGORAPHOBIA (4) Aortic valve replaced Code(s): Z95.2 - PRESENCE OF PROSTHETIC HEART VALVE (5) COPD bronchitis Assessment/Plan: . desaturates just walking across the room, though improving. Treating acute/chronic systolic CHF. On O2; f/u with television production assistant. Code(s): J44.9 - CHRONIC OBSTRUCTIVE PULMONARY DISEASE, UNSPECIFIED (6) Hx of CABG Code(s): Z95.1 - PRESENCE OF AORTOCORONARY BYPASS GRAFT (7) Hyperlipidemia Assessment/Plan: on rosuvastatin 20 mg daily. Code(s): E78.5 - HYPERLIPIDEMIA, UNSPECIFIED (8) Hypertension Code(s): I10 - ESSENTIAL (PRIMARY) HYPERTENSION (9) ICD (implantable cardioverter-defibrillator) in place Code(s): Z95.810 - PRESENCE OF AUTOMATIC (IMPLANTABLE) CARDIAC DEFIBRILLATOR (10) Sleep apnea in adult Code(s): G47.33 - OBSTRUCTIVE SLEEP APNEA (ADULT) (PEDIATRIC) (11) Nonsustained ventricular tachycardia Code(s): I47.2 - VENTRICULAR TACHYCARDIA
[2016-11-09] MEDS: LEVOTHYROXINE NA 75 MCG TABLET (FP) PO SCH (06:30)
[2016-11-09] MEDS: FUROSEMIDE 40 MG TABLET (FP) PO SCH ×2 (06:30→14:53)
[2016-11-09 07:37] LABS: BASOPHIL 0.4 % (0-2.0); EOSINOPHIL 2.6 % (0-4.5); MCH 26.5 pg (25.7-33.7); MEAN CELL VOLUME 80.5 fl (80-96); MEAN PLT VOLUME 9.5 fl (7.5-11.1); NEUTROPHILS 73.1 % (42.8-82.8); PLATELET COUNT 259 K/MM3 (134-434); RDW 16.2 % (11.6-15.6); WHITE BLOOD COUNT 9.5 K/mm3 (4.0-10.0)
[2016-11-09 08:13] LABS: ANION GAP 9 (8-16); CO2 33 mmol/L (21-32); CREATININE 0.9 mg/dL (0.55-1.02); GLUCOSE,RANDOM 91 mg/dL (74-106); MAGNESIUM 2.5 mg/dL (1.8-2.4); PHOSPHOROUS 3.6 mg/dL (2.5-4.9)
[2016-11-09] MEDS: ASPIRIN 81 MG CHEWABLE TABLETS PO SCH (09:06)
[2016-11-09] MEDS: DOCUSATE SODIUM 100 MG CAPSULE (FP) PO SCH ×2 (09:07→22:42)
[2016-11-09] MEDS: PANTOPRAZOLE 40 MG TABLET (FP) PO SCH (09:07)
[2016-11-09] MEDS: SPIRONOLACTONE 25 MG TABLET (FP) PO SCH ×2 (09:07→22:42)
[2016-11-09] MEDS: CLOPIDOGREL BISULFATE 75 MG TABLET (FP) PO SCH (09:07)
[2016-11-09] MEDS: METOPROLOL SUCCINATE 25 MG TAB.SR.24H (FP) PO SCH ×2 (09:08→22:42)
[2016-11-09] MEDS: BUDESONIDE/FORMETEROL FUMARATE 80/4.5 mcg INHALER IH SCH ×2 (09:08→22:42)
[2016-11-09] MEDS: LISINOPRIL 5 MG TABLET (FP) PO SCH (09:08)
[2016-11-09] MEDS: ACLIDINIUM BROMIDE 400 MCG/INH AERO.POWD IH SCH ×2 (09:09→22:42)
[2016-11-09] MEDS: HEPARIN NA (PORCINE) 5,000 UNITS/ML 1ML VIAL SQ SCH ×2 (09:09→22:42)
--- NOTE | 2016-11-09 11:06 | PN ---
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 She was taken off her regular digoxin about 3 weeks ago. She notes that this has worsened since the onset and is similar to her prior episodes of CHF exacerbation. She measured her pulse oxygenation to be in the mid-80s at home on room air, and she turned on her supplemental oxygen to 3 LPM with slower-than -normal improvement for her baseline. Her only other additional symptoms have been foot/ankle swelling on both sides, and mid-epigastric/lower mid-chest burning sensation this morning. She stopped taking her normal digoxin at the request of her regular doctor a few weeks ago, and also was treated 2-3 weeks ago for a bronchitis with Prednisone and a Z-pack, which she took as prescribed. - Current Medication List Current Medications: Active Medications Acetaminophen (Tylenol -) 650 mg PO Q4H PRN PRN Reason: FEVER OR PAIN Last Admin: 11/08/16 14:04 Dose: 650 mg Aclidinium [place] (Tudorza -) 1 puff IH BID [facility] Last Admin: 11/09/16 09:09 Dose: 1 puff Aspirin (Asa -) 81 mg PO DAILY [facility] Last Admin: 11/09/16 09:06 Dose: 81 mg Budesonide/Formoterol Fumarate (Symbicort 80/4.5mcg -) 1 puff IH BID [facility] Last Admin: 11/09/16 09:08 Dose: 1 puff Clopidogrel Bisulfate (Plavix -) 75 mg PO DAILY [facility] Last Admin: 11/09/16 09:07 Dose: 75 mg Docusate Sodium (Colace -) 100 mg PO BID [facility] Last Admin: 11/09/16 09:07 Dose: 100 mg Furosemide (Lasix -) 40 mg PO BID@0600,1400 [facility] Last Admin: 11/09/16 06:30 Dose: 40 mg Heparin Sodium (Porcine) (Heparin -) 5,000 unit SQ BID [facility] Last Admin: 11/09/16 09:09 Dose: 5,000 unit Levothyroxine Sodium (Synthroid -) 75 mcg PO DAILY@0700 [facility] Last Admin: 11/09/16 06:30 Dose: 75 mcg Lisinopril (Prinivil) 2.5 mg PO DAILY [facility] Last Admin: 11/09/16 09:08 Dose: 2.5 mg Metoprolol Succinate (Toprol Xl -) 25 mg PO BID [facility] Last Admin: 11/09/16 09:08 Dose: 25 mg Pantoprazole Sodium (Protonix -) 40 mg PO DAILY [facility] Last Admin: 11/09/16 09:07 Dose: 40 mg Rosuvastatin Calcium (Crestor -) 20 mg PO HS [facility] Last Admin: 11/08/16 22:48 Dose: Not Given Spironolactone (Aldactone -) 12.5 mg PO BID [facility] Last Admin: 11/09/16 09:07 Dose: 12.5 mg - Objective Vital Signs: Vital Signs Temperature 97.9 F 11/09/16 10:00 Pulse Rate 94 H 11/09/16 10:19 Respiratory Rate 22 11/09/16 10:00 Blood Pressure 108/53 11/09/16 10:00 O2 Sat by Pulse Oximetry (%) 90 L 11/09/16 10:19 Eyes: Yes: WNL, Conjunctiva Clear, EOM Intact HENT: Yes: WNL, Atraumatic, Normocephalic Neck: Yes: WNL, Supple, Trachea Midline Cardiovascular: Yes: WNL, Regular Rate and Rhythm Respiratory: Yes: WNL, Regular, CTA Bilaterally Gastrointestinal: Yes: WNL, Normal Bowel Sounds Genitourinary: Yes: WNL Musculoskeletal: Yes: WNL Extremities: Yes: WNL Edema: No Integumentary: Yes: WNL Neurological: Yes: WNL, Alert, Oriented ...Motor Strength: WNL Psychiatric: Yes: WNL Labs: CBC, BMP 11/09/16 05:35 11/09/16 05:35 INR, PTT INR 1.08 (0.82-1.09) 11/05/16 05:35 Assessment/Plan - Problems (1) Shortness of breath Assessment/Plan: severe systolic CHF; COPD. (2) Systolic and diastolic CHF w/reduced LV function, NYHA class 4 Assessment/Plan: severely reduced LVEF. metoprolol,; spironolactone; lisinopril,; IV furosemide. F/u BUN/Cr, Is and Os, daily weight, electrolytes. Code(s): I50.40 - UNSP COMBINED SYSTOLIC AND DIASTOLIC (CONGESTIVE) HRT FAIL (3) Anxiety 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 Code(s): F41.0 - PANIC DISORDER WITHOUT AGORAPHOBIA (4) Aortic valve replaced Code(s): Z95.2 - PRESENCE OF PROSTHETIC HEART VALVE (5) COPD bronchitis Assessment/Plan: . desaturates just walking across the room, though improving. Treating acute/chronic systolic CHF. On O2; f/u with technical assoc. Code(s): J44.9 - CHRONIC OBSTRUCTIVE PULMONARY DISEASE, UNSPECIFIED (6) Hx of CABG Code(s): Z95.1 - PRESENCE OF AORTOCORONARY BYPASS GRAFT (7) Hyperlipidemia Assessment/Plan: on rosuvastatin 20 mg daily. Code(s): E78.5 - HYPERLIPIDEMIA, UNSPECIFIED (8) Hypertension Code(s): I10 - ESSENTIAL (PRIMARY) HYPERTENSION (9) ICD (implantable cardioverter-defibrillator) in place Code(s): Z95.810 - PRESENCE OF AUTOMATIC (IMPLANTABLE) CARDIAC DEFIBRILLATOR (10) Sleep apnea in adult Code(s): G47.33 - OBSTRUCTIVE SLEEP APNEA (ADULT) (PEDIATRIC) (11) Nonsustained ventricular tachycardia Code(s): I47.2 - VENTRICULAR TACHYCARDIA
--- NOTE | 2016-11-09 11:38 | PN ---
Progress Note, Physician History of Present Illness: pulmonary alert,oob-chair,comfortable at rest + [place],-cp - Current Medication List Current Medications: Active Medications Acetaminophen (Tylenol -) 650 mg PO Q4H PRN PRN Reason: FEVER OR PAIN Last Admin: 11/08/16 14:04 Dose: 650 mg Aclidinium [place] (Tudorza -) 1 puff IH BID [facility] Last Admin: 11/09/16 09:09 Dose: 1 puff Aspirin (Asa -) 81 mg PO DAILY [facility] Last Admin: 11/09/16 09:06 Dose: 81 mg Budesonide/Formoterol Fumarate (Symbicort 80/4.5mcg -) 1 puff IH BID [facility] Last Admin: 11/09/16 09:08 Dose: 1 puff Clopidogrel Bisulfate (Plavix -) 75 mg PO DAILY [facility] Last Admin: 11/09/16 09:07 Dose: 75 mg Docusate Sodium (Colace -) 100 mg PO BID [facility] Last Admin: 11/09/16 09:07 Dose: 100 mg Furosemide (Lasix -) 40 mg PO BID@0600,1400 [facility] Last Admin: 11/09/16 06:30 Dose: 40 mg Heparin Sodium (Porcine) (Heparin -) 5,000 unit SQ BID [facility] Last Admin: 11/09/16 09:09 Dose: 5,000 unit Levothyroxine Sodium (Synthroid -) 75 mcg PO DAILY@0700 [facility] Last Admin: 11/09/16 06:30 Dose: 75 mcg Lisinopril (Prinivil) 2.5 mg PO DAILY [facility] Last Admin: 11/09/16 09:08 Dose: 2.5 mg Metoprolol Succinate (Toprol Xl -) 25 mg PO BID [facility] Last Admin: 11/09/16 09:08 Dose: 25 mg Pantoprazole Sodium (Protonix -) 40 mg PO DAILY [facility] Last Admin: 11/09/16 09:07 Dose: 40 mg Rosuvastatin Calcium (Crestor -) 20 mg PO HS [facility] Last Admin: 11/08/16 22:48 Dose: Not Given Spironolactone (Aldactone -) 12.5 mg PO BID [facility] Last Admin: 11/09/16 09:07 Dose: 12.5 mg - Objective Vital Signs: Vital Signs Temperature 97.9 F 11/09/16 10:00 Pulse Rate 94 H 11/09/16 10:19 Respiratory Rate 22 11/09/16 10:00 Blood Pressure 108/53 11/09/16 10:00 O2 Sat by Pulse Oximetry (%) 90 L 11/09/16 10:19 Constitutional: Yes: Well Nourished, Calm Eyes: Yes: WNL HENT: Yes: WNL Neck: Yes: WNL Cardiovascular: Yes: Pulse Irregular, S1, S2 Respiratory: Yes: Rales (bilateral rales) Gastrointestinal: Yes: Normal Bowel Sounds, Soft Extremities: Yes: WNL Edema: No Labs: CBC, BMP 11/09/16 05:35 11/09/16 05:35 INR, PTT INR 1.08 (0.82-1.09) 11/05/16 05:35 Problem List - Problems (1) Acute on chronic systolic CHF (congestive heart failure) Code(s): I50.23 - ACUTE ON CHRONIC SYSTOLIC (CONGESTIVE) HEART FAILURE (2) Aortic valve replaced Code(s): Z95.2 - PRESENCE OF PROSTHETIC HEART VALVE (3) CAD (coronary artery disease) Code(s): I25.10 - ATHSCL HEART DISEASE OF [place] CORONARY ARTERY W/O ANG PCTRS (4) Diabetes Code(s): E11.9 - TYPE 2 DIABETES MELLITUS WITHOUT COMPLICATIONS (5) Hx of CABG Code(s): Z95.1 - PRESENCE OF AORTOCORONARY BYPASS GRAFT (6) Hypertension Code(s): I10 - ESSENTIAL (PRIMARY) HYPERTENSION (7) ICD (implantable cardioverter-defibrillator) in place Code(s): Z95.810 - PRESENCE OF AUTOMATIC (IMPLANTABLE) CARDIAC DEFIBRILLATOR (8) Sleep apnea in adult Code(s): G47.33 - OBSTRUCTIVE SLEEP APNEA (ADULT) (PEDIATRIC) (9) Valvular heart disease Code(s): I38 - ENDOCARDITIS, VALVE UNSPECIFIED Assessment/Plan Problem List - Problems (1) CHF NYHA class III Code(s): I50.9 - HEART FAILURE, UNSPECIFIED (2) CHF exacerbation Code(s): I50.9 - HEART FAILURE, UNSPECIFIED Qualifiers: Congestive heart failure type: unspecified congestive heart failure type Qualified Code(s): I50.9 - Heart failure, unspecified (3) Respiratory failure Code(s): J96.90 - RESPIRATORY FAILURE, UNSP, UNSP W HYPOXIA OR HYPERCAPNIA (4) Shortness of breath Code(s): R06.02 - SHORTNESS OF BREATH 5 ASHD S/P CABG 6 AFIB 7 S/P AVR 8 JERALD plan lasix po O2 inhaled bronchodilators plavix outpatient pulmonary rehab DR MORRISSEY
--- NOTE | 2016-11-09 14:52 | PN ---
Physical Exam: SUBJECTIVE: Patient seen and examined No acute events overnight. Patient feels improved but not back to baseline. + dyspnea on exertion, but comfortable at rest. OBJECTIVE: Vital Signs Period Temp Pulse Resp BP Sys/Camilo Pulse Ox Last 24 Hr 97 F-98.1 F 72-100 18-22 90-152/49-88 90-94 GENERAL: Awake, alert, and fully oriented, in no acute distress on 3L of O2 HEAD: Normal with no signs of trauma. EYES: Extraocular movements intact, sclera anicteric, conjunctiva clear. No lid lag. EARS, NOSE, THROAT: Ears normal, nares patent, oropharynx clear without exudates. NECK: Normal range of motion, supple without lymphadenopathy, No JVD, or masses. LUNGS: Breath sounds equal, Bilateral crackles at the bases, improved from yesterday. No accessory muscle use. HEART: Regular rate and rhythm, normal S1 and S2 without murmur, rub or gallop. ABDOMEN: Soft, nontender, not distended, normoactive bowel sounds, no guarding, no rebound, no masses. No hepatomegaly or splenomegaly. MUSCULOSKELETAL: Normal range of motion at all joints. No bony deformities or tenderness. No CVA tenderness. UPPER EXTREMITIES: 2+ pulses, warm, well-perfused. No cyanosis. No clubbing. No peripheral edema. LOWER EXTREMITIES: 2+ pulses, warm, well-perfused. No calf tenderness. No edema NEUROLOGICAL: Cranial nerves II-XII intact. Normal speech. Normal gait. PSYCHIATRIC: Cooperative. Good eye contact. Appropriate mood and affect. SKIN: Warm, dry, normal turgor, no rashes or lesions noted, normal capillary refill. Laboratory Results - last 24 hr 11/09/16 11/09/16 05:35 05:35 WBC 9.5 RBC 4.48 Hgb 11.9 Hct 36.1 MCV 80.5 MCH 26.5 MCHC 33.0 RDW 16.2 H Plt Count 259 MPV 9.5 Neutrophils % 73.1 Lymphocytes % 14.5 Monocytes % 9.4 Eosinophils % 2.6 Basophils % 0.4 Sodium 132 L Potassium 4.4 Chloride 90 L Carbon Dioxide 33 H Anion Gap 9 BUN 25 H Creatinine 0.9 Random Glucose 91 Calcium 9.0 Phosphorus 3.6 Magnesium 2.5 H Active Medications Generic Name Dose Route Start Last Admin Trade Name Freq PRN Reason Stop Dose Admin Acetaminophen 650 mg 11/08/16 08:39 11/08/16 14:04 Tylenol - PO 650 mg Q4H PRN Administration FEVER OR PAIN Aclidinium [place] 1 puff 11/04/16 22:00 11/09/16 09:09 Tudorza - IH 1 puff BID [facility] Administration Aspirin 81 mg 11/05/16 10:00 11/09/16 09:06 Asa - PO 81 mg DAILY [facility] Administration Budesonide/Formoterol Fumarate 1 puff 11/04/16 22:00 11/09/16 09:08 Symbicort 80/4.5mcg - IH 1 puff BID [facility] Administration Clopidogrel Bisulfate 75 mg 11/05/16 10:00 11/09/16 09:07 Plavix - PO 75 mg DAILY [facility] Administration Docusate Sodium 100 mg 11/04/16 22:00 11/09/16 09:07 Colace - PO 100 mg BID [facility] Administration Furosemide 40 mg 11/07/16 14:00 11/09/16 06:30 Lasix - PO 40 mg BID@0600,1400 [facility] Administration Heparin Sodium (Porcine) 5,000 unit 11/05/16 10:00 11/09/16 09:09 Heparin - SQ 5,000 unit BID [facility] Administration Levothyroxine Sodium 75 mcg 11/05/16 07:00 11/09/16 06:30 Synthroid - PO 75 mcg DAILY@0700 [facility] Administration Lisinopril 2.5 mg 11/06/16 10:00 11/09/16 09:08 Prinivil PO 2.5 mg DAILY [facility] Administration Metoprolol Succinate 25 mg 11/05/16 10:00 11/09/16 09:08 Toprol Xl - PO 25 mg BID [facility] Administration Pantoprazole Sodium 40 mg 11/05/16 10:00 11/09/16 09:07 Protonix - PO 40 mg DAILY [facility] Administration Rosuvastatin Calcium 20 mg 11/04/16 22:00 11/08/16 22:48 Crestor - PO Not Given HS [facility] Spironolactone 12.5 mg 11/04/16 23:15 11/09/16 09:07 Aldactone - PO 12.5 mg BID [facility] Administration ASSESSMENT/PLAN: 81 yo female with h/o CHF, COPD, bronchitis, HTN, 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 #Acute CHF exacerbation, NYHA class 3, Improving -Patient went on high cheese diet prior to admission -Still has crackles at b/l bases -Continue PO lasix 40 mg BID -Cardiology on board, Dr. Ingram -Pulmonary on board, Dr. Morales -Echo- Severe global hypokinesis, moderately dilated L and R atrium, moderate mitral/tricuspid regurg, Right vent systolic pressure elevated 30-40 mmhg -Repeat CXR- unchanged -I&O -Daily weights -Continue home metoprolol 25 mg BID, spironolactone 12.5 mg BID, asa 81 mg daily, lisinopril 2.5 mg daily and plavix 75 mg daily -Respiratory pre/post, 97 --> 90 walking for 3 minutes. -Plan for D/c in the am #Leukocytosis -CXR, no evidence of consolidation -Afebrile -VSS #CAD s/p CABG, aortic valve replacement and AICD -Cardiology on board, Dr. Ingram -Continue home medications- Aspirin 81 mg, metoprolol 25 mg bid, plavix 75 mg daily -Telemetry monitoring #HLD -Crestor 20 mg HS (no simvastatin on formulary) #COPD, on Home 3L -Continue tudorza and symbicort #Hypothyroidism -Continue synthroid 75 mcg daily #PPX -DVT- heparin 5000 units BID -GI- not indicated #FEN/GI -No fluids -Na 132, will monitor -Sodium controlled diet Visit type - Emergency Visit Emergency Visit: No - New Patient This patient is new to me today: No - Critical Care Critical Care patient: No
--- NOTE | 2016-11-09 17:06 | PN ---
Teaching Attending Note Name of Resident: Lance Walters ATTENDING PHYSICIAN STATEMENT I saw and evaluated the patient. I reviewed the resident's note and discussed the case with the resident. I agree with the resident's findings and plan as documented. SUBJECTIVE: Patient says she is still short of breath with exertion, but feels a little better than yesterday. OBJECTIVE: Vital Signs Period Temp Pulse Resp BP Sys/Camilo Pulse Ox Last 24 Hr 97 F-98.1 F 72-100 20-22 96-152/49-88 90-94 HEART: S1S2, RRR LUNGS: Bibasilar crackles ABDOMEN: Soft, non-tender, non-distended, normal BS EXTREMITIES: Trace edema ASSESSMENT AND PLAN: This is an 81-year-old woman with a history of CAD, CABG, CHF, COPD, HTN, AVR, AICD who presented to the ER with shortness of breath x 2 days. 1. Acute on chronic systolic heart failure - Continue Lasix, Aldactone, Lisinopril - Patient still reports SOBOE - Has AICD 2. CAD, history of CABG - Continue aspirin, Plavix, Toprol XL 3. Chronic hypoxic respiratory failure secondary to COPD - Continue Symbicort, Tudorza - Continue oxygen 4. Hyperlipidemia - Continue Crestor 5. Hypothyroidism - Continue Synthroid 6. Hypertension - Continue Toprol XL, Lisinopril, Lasix, Aldactone 7. History of bioprosthetic AV replacement 8. Anxiety disorder 9. History of NSVT - Has AICD
[2016-11-09] MEDS: ROSUVASTATIN CA 20 MG TABLET (FP) PO SCH (22:42)
[2016-11-10] MEDS: FUROSEMIDE 40 MG TABLET (FP) PO SCH ×2 (05:44→14:46)
[2016-11-10] MEDS: LEVOTHYROXINE NA 75 MCG TABLET (FP) PO SCH (05:44)
[2016-11-10 08:10] LABS: ANION GAP 8 (8-16); CALCIUM 8.6 mg/dL (8.5-10.1); CO2 32 mmol/L (21-32); CREATININE 0.9 mg/dL (0.55-1.02); GLUCOSE,RANDOM 90 mg/dL (74-106)
[2016-11-10] MEDS ORDERED: FUROSEMIDE 40 MG/4 ML INJECTABLE VIAL IVPUSH ONE (09:20)
[2016-11-10] MEDS: PANTOPRAZOLE 40 MG TABLET (FP) PO SCH (09:50)
[2016-11-10] MEDS: DOCUSATE SODIUM 100 MG CAPSULE (FP) PO SCH (09:50)
[2016-11-10] MEDS: HEPARIN NA (PORCINE) 5,000 UNITS/ML 1ML VIAL SQ SCH (09:50)
[2016-11-10] MEDS: BUDESONIDE/FORMETEROL FUMARATE 80/4.5 mcg INHALER IH SCH (09:50)
[2016-11-10] MEDS: CLOPIDOGREL BISULFATE 75 MG TABLET (FP) PO SCH (09:50)
[2016-11-10] MEDS: ASPIRIN 81 MG CHEWABLE TABLETS PO SCH (09:50)
[2016-11-10] MEDS: ACLIDINIUM BROMIDE 400 MCG/INH AERO.POWD IH SCH (09:51)
[2016-11-10 10:36] LABS: MAGNESIUM 2.5 mg/dL (1.8-2.4)
[2016-11-10] MEDS: METOPROLOL SUCCINATE 25 MG TAB.SR.24H (FP) PO SCH (10:41)
--- NOTE | 2016-11-10 11:18 | PN ---
Progress Note, Physician Chief Complaint: Pt denies chest pain, dyspnea, or palpitations. No dizziness. 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 She was taken off her regular digoxin about 3 weeks ago. She notes that this has worsened since the onset and is similar to her prior episodes of CHF exacerbation. She measured her pulse oxygenation to be in the mid-80s at home on room air, and she turned on her supplemental oxygen to 3 LPM with slower-than -normal improvement for her baseline. Her only other additional symptoms have been foot/ankle swelling on both sides, and mid-epigastric/lower mid-chest burning sensation this morning. She stopped taking her normal digoxin at the request of her regular doctor a few weeks ago, and also was treated 2-3 weeks ago for a bronchitis with Prednisone and a Z-pack, which she took as prescribed. - Current Medication List Current Medications: Active Medications Acetaminophen (Tylenol -) 650 mg PO Q4H PRN PRN Reason: FEVER OR PAIN Last Admin: 11/08/16 14:04 Dose: 650 mg Aclidinium [place] (Tudorza -) 1 puff IH BID [facility] Last Admin: 11/10/16 09:51 Dose: 1 puff Aspirin (Asa -) 81 mg PO DAILY [facility] Last Admin: 11/10/16 09:50 Dose: 81 mg Budesonide/Formoterol Fumarate (Symbicort 80/4.5mcg -) 1 puff IH BID [facility] Last Admin: 11/10/16 09:50 Dose: 1 puff Clopidogrel Bisulfate (Plavix -) 75 mg PO DAILY [facility] Last Admin: 11/10/16 09:50 Dose: 75 mg Docusate Sodium (Colace -) 100 mg PO BID [facility] Last Admin: 11/10/16 09:50 Dose: 100 mg Furosemide (Lasix -) 40 mg PO BID@0600,1400 [facility] Last Admin: 11/10/16 05:44 Dose: 40 mg Heparin Sodium (Porcine) (Heparin -) 5,000 unit SQ BID [facility] Last Admin: 11/10/16 09:50 Dose: 5,000 unit Levothyroxine Sodium (Synthroid -) 75 mcg PO DAILY@0700 [facility] Last Admin: 11/10/16 05:44 Dose: 75 mcg Lisinopril (Prinivil) 2.5 mg PO DAILY [facility] Last Admin: 11/09/16 09:08 Dose: 2.5 mg Metoprolol Succinate (Toprol Xl -) 25 mg PO BID [facility] Last Admin: 11/10/16 10:41 Dose: 25 mg Pantoprazole Sodium (Protonix -) 40 mg PO DAILY [facility] Last Admin: 11/10/16 09:50 Dose: 40 mg Rosuvastatin Calcium (Crestor -) 20 mg PO HS [facility] Last Admin: 11/09/16 22:42 Dose: Not Given Spironolactone (Aldactone -) 12.5 mg PO BID [facility] Last Admin: 11/09/16 22:42 Dose: 12.5 mg - Objective Vital Signs: Vital Signs Temperature 97.8 F 11/10/16 05:42 Pulse Rate 76 11/10/16 05:42 Respiratory Rate 20 11/10/16 05:42 Blood Pressure 96/48 11/10/16 05:42 O2 Sat by Pulse Oximetry (%) 90 L 11/09/16 21:00 Constitutional: Yes: Anxious Eyes: Yes: WNL HENT: Yes: WNL Neck: Yes: WNL Cardiovascular: Yes: Pulse Irregular Respiratory: Yes: Regular Gastrointestinal: Yes: Soft ...Rectal Exam: Yes: Deferred Genitourinary: No: Anuria Breast(s): Yes: WNL Musculoskeletal: Yes: Muscle Weakness Extremities: Yes: Cool Edema: Yes Edema: LLE: Trace, RLE: Trace Peripheral Pulses WNL: No Peripheral Pulses: Left Doralis Pedis: 1+, Right Dorsalis Pedis: 1+ Integumentary: Yes: WNL Neurological: Yes: Alert, Oriented, Weakness Psychiatric: Yes: Other (anxiety/depression) Labs: CBC, BMP 11/09/16 05:35 11/10/16 05:35 INR, PTT INR 1.08 (0.82-1.09) 11/05/16 05:35 Abnormal Lab Results 11/10/16 05:35 Sodium 132 L Chloride 92 L BUN 26 H Magnesium 2.5 H - ....Imaging Other: Image Reviewed (telemetry: NSR; periods of ventricular pacing; brief run of NSVT) Problem List - Problems (1) Shortness of breath Assessment/Plan: severe systolic CHF; COPD (on home O2). (2) Systolic and diastolic CHF w/reduced LV function, NYHA class 4 Assessment/Plan: severely reduced LVEF. Continue metoprolol,; spironolactone; lisinopril,; IV furosemide: change to PO when going home. F/u BUN/Cr, Is and Os, daily weight, electrolytes. Code(s): I50.40 - UNSP COMBINED SYSTOLIC AND DIASTOLIC (CONGESTIVE) HRT FAIL (3) Anxiety 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 Code(s): F41.0 - PANIC DISORDER WITHOUT AGORAPHOBIA (4) Aortic valve replaced Assessment/Plan: bioprosthetic AOV. Code(s): Z95.2 - PRESENCE OF PROSTHETIC HEART VALVE (5) COPD bronchitis Assessment/Plan: . desaturates just walking across the room, though improving. Treating acute/chronic systolic CHF. On O2; f/u with review nurse. Code(s): J44.9 - CHRONIC OBSTRUCTIVE PULMONARY DISEASE, UNSPECIFIED (6) Hx of CABG Code(s): Z95.1 - PRESENCE OF AORTOCORONARY BYPASS GRAFT (7) Hyperlipidemia Assessment/Plan: on rosuvastatin 20 mg daily. Code(s): E78.5 - HYPERLIPIDEMIA, UNSPECIFIED (8) Hypertension Code(s): I10 - ESSENTIAL (PRIMARY) HYPERTENSION (9) ICD (implantable cardioverter-defibrillator) in place Code(s): Z95.810 - PRESENCE OF AUTOMATIC (IMPLANTABLE) CARDIAC DEFIBRILLATOR (10) Sleep apnea in adult Code(s): G47.33 - OBSTRUCTIVE SLEEP APNEA (ADULT) (PEDIATRIC) (11) Nonsustained ventricular tachycardia Assessment/Plan: Severely decreased LVEF and severe LV dilation. Continue metoprolol and aldactone. Added ACEI. F/u electrolytes: WNL today. Code(s): I47.2 - VENTRICULAR TACHYCARDIA
[2016-11-10] MEDS: SPIRONOLACTONE 25 MG TABLET (FP) PO SCH (11:42)
--- NOTE | 2016-11-10 12:04 | PN ---
Teaching Attending Note Name of Resident: Lance Walters ATTENDING PHYSICIAN STATEMENT I saw and evaluated the patient. I reviewed the resident's note and discussed the case with the resident. I agree with the resident's findings and plan as documented. SUBJECTIVE: Patient says she is feeling better. OBJECTIVE: Vital Signs Period Temp Pulse Resp BP Sys/Camilo Pulse Ox Last 24 Hr 97.5 F-97.8 F 74-80 20-20 96-117/48-80 90 HEART: S1S2, RRR LUNGS: Bilateral crackles ABDOMEN: Soft, non-tender, non-distended, normal BS EXTREMITIES: 1+ edema ASSESSMENT AND PLAN: This is an 81-year-old woman with a history of CAD, CABG, CHF, COPD, HTN, AVR, AICD who presented to the ER with shortness of breath x 2 days. 1. Acute on chronic systolic heart failure - Patient appears fluid overloaded today - Will give Lasix IV x 1 - Continue Lasix, Aldactone, Lisinopril - Has AICD 2. CAD, history of CABG - Continue aspirin, Plavix, Toprol XL 3. Chronic hypoxic respiratory failure secondary to COPD - Continue Symbicort, Tudorza - Continue oxygen 4. Hyperlipidemia - Continue Crestor 5. Hypothyroidism - Continue Synthroid 6. Hypertension - Continue Toprol XL, Lisinopril, Lasix, Aldactone 7. History of bioprosthetic AV replacement 8. Anxiety disorder 9. History of NSVT - Has AICD
--- NOTE | 2016-11-10 13:00 | PN ---
Progress Note (short form) - Note Progress Note: PULMONARY Breathing better today but legs more swollen. No cough or wheezing. No chest pain. Last Vital Signs Temp Pulse Resp BP Pulse Ox 98.2 F 84 20 98/60 95 11/10/16 09:00 11/10/16 09:00 11/10/16 09:00 11/10/16 09:00 11/10/16 09:00 Gen: NAD at rest Heart: RRR Lung: scattered rales Abd: soft, nontender Ext: + distal edema CBC, BMP 11/09/16 05:35 11/10/16 05:35 Active Medications Acetaminophen (Tylenol -) 650 mg PO Q4H PRN PRN Reason: FEVER OR PAIN Last Admin: 11/08/16 14:04 Dose: 650 mg Aclidinium Christiana (Tudorza -) 1 puff IH BID [facility] Last Admin: 11/10/16 09:51 Dose: 1 puff Aspirin (Asa -) 81 mg PO DAILY [facility] Last Admin: 11/10/16 09:50 Dose: 81 mg Budesonide/Formoterol Fumarate (Symbicort 80/4.5mcg -) 1 puff IH BID [facility] Last Admin: 11/10/16 09:50 Dose: 1 puff Clopidogrel Bisulfate (Plavix -) 75 mg PO DAILY [facility] Last Admin: 11/10/16 09:50 Dose: 75 mg Docusate Sodium (Colace -) 100 mg PO BID [facility] Last Admin: 11/10/16 09:50 Dose: 100 mg Furosemide (Lasix -) 40 mg PO BID@0600,1400 [facility] Last Admin: 11/10/16 05:44 Dose: 40 mg Heparin Sodium (Porcine) (Heparin -) 5,000 unit SQ BID [facility] Last Admin: 11/10/16 09:50 Dose: 5,000 unit Levothyroxine Sodium (Synthroid -) 75 mcg PO DAILY@0700 [facility] Last Admin: 11/10/16 05:44 Dose: 75 mcg Lisinopril (Prinivil) 2.5 mg PO DAILY [facility] Last Admin: 11/09/16 09:08 Dose: 2.5 mg Metoprolol Succinate (Toprol Xl -) 25 mg PO BID [facility] Last Admin: 11/10/16 10:41 Dose: 25 mg Pantoprazole Sodium (Protonix -) 40 mg PO DAILY [facility] Last Admin: 11/10/16 09:50 Dose: 40 mg Rosuvastatin Calcium (Crestor -) 20 mg PO HS [facility] Last Admin: 11/09/16 22:42 Dose: Not Given Spironolactone (Aldactone -) 12.5 mg PO BID [facility] Last Admin: 11/10/16 11:42 Dose: 12.5 mg A/P Acute on Chronic Systolic Heart Failure CAD s/p CABG COPD Chronic Hypoxic Respiratory Failure HTN Hyperlipidemia Hypothyroidism - continue lasix, aldactone - monitor urine output, creatinine - inhaled bronchodilators - O2 to keep SpO2>90% - DVT prophylaxis
[2016-11-10 13:38] VITALS: TEMP 98.1
[2016-11-10 14:43] VITALS: BP 95/50; PULSE 81
[2016-11-10] MEDS: LISINOPRIL 5 MG TABLET (FP) PO SCH (14:47)
--- NOTE | 2016-11-10 17:01 | DS ---
Physical Exam: LABS Laboratory Results - last 24 hr Selected Entries 11/04/16 11/04/16 11/05/16 13:15 14:19 02:00 Temperature 97.7 F Pulse Rate 103 H Respiratory 24 Rate Blood Pressure 118/76 11/06/16 11/06/16 11/07/16 14:00 18:00 02:46 Temperature 97.8 F Pulse Rate 67 Respiratory Rate Blood Pressure 126/52 11/08/16 11/08/16 11/08/16 01:00 05:00 17:00 Temperature 97.7 F Pulse Rate 81 Respiratory 20 Rate Blood Pressure 106/55 11/08/16 11/09/16 11/09/16 21:00 10:00 14:00 Temperature 97.8 F Pulse Rate 80 Respiratory Rate Blood Pressure 108/53 11/10/16 11/10/16 11/10/16 09:00 13:37 14:42 Temperature 98.1 F Pulse Rate 81 Respiratory 20 20 Rate Blood Pressure 95/50 Laboratory Tests 11/04/16 11/05/16 11/06/16 13:30 05:35 05:35 WBC 12.3 H 11.2 H 9.6 RBC Neutrophils % 83.0 H 76.9 75.7 Sodium Carbon Dioxide BUN Magnesium 11/06/16 11/07/16 11/08/16 05:35 06:00 05:43 WBC RBC Neutrophils % Sodium 136 138 135 L Carbon Dioxide 32 35 H 33 H BUN 26 H 26 H 26 H Magnesium 2.5 H 2.6 H 11/09/16 11/09/16 11/10/16 05:35 05:35 05:35 WBC RBC 4.48 Neutrophils % 73.1 Sodium 132 L 132 L Carbon Dioxide 33 H 32 BUN 25 H 26 H Magnesium 2.5 H 11/04- IMPRESSION: Limited inspiratory effort with no consolidation, no definite pleural effusion identified. 11/08-Since 11/04/2016, the congestive changes have diminished slightly. The remainder the study is unchanged. Echocardiogram- Left ventricular systolic function is severely reduced. Severe global hypokinesis of the left ventricle. Left atrium and Right atrium is moderately dilated. Moderate mitral/tricuspid regurgitation HOSPITAL COURSE: Date of Admission:11/04/16 Date of Discharge: 11/10/16 81 y.o. 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 Patient reported worsening exertional dyspnea, orthopnea, increased dry cough, anorexia, O2 sats below baseline while on home O2 (93 at rest from normal 97 and 85 on exertion), LE edema L>R as well as burning, nonradiating mid sternal pain since this AM. Patient had a recent binge of high cheese diet (increased salt intake). In the ED, patient had a WBC of 12.3, BNP of 8447, CXR- no consolidation or pleural effusion, EKG- Paced rhythm, rate of 96, otherwise unremarkable EKG, trops negative x1, 80 MG IV lasix and metalazone 10mg x2 given. Patient admitted for Acute CHF exacerbation Patient started on IV Lasix 40 BID, which was tapered during her hospital course to her home dose of Lasix po 40 bid. Patient had an echo (results above) . She was continued on her home medications (spironolactone, lopressor, asa, and plavix). Cardiology evaluated her and added lisinopril 2.5 mg po. Patient's daily weights were measured and she increased from 71 kg to 75 kg. Her symptoms improved throughout her hospital stay and was stable upon discharged with close f/u. Patient will f/u with pulmonology for outpatient pulmonary rehab. In addition, she will f/u with her PCP and cardiology. She was continued on the lisinopril 2.5 mg PO on discharge. Minutes to complete discharge: 30 Discharge Summary Reason For Visit: CHF Current Active Problems CHF NYHA class III (Acute) Leukocytosis (Acute) CAD (coronary artery disease) (Chronic) COPD bronchitis (Chronic) Hyperlipidemia (Chronic) Hypothyroidism (Chronic) Condition: Improved - Instructions Diet, Activity, Other Instructions: You were in the hospital due to exacerbation of your heart failure. Please follow up with your primary care provider within 1 week (Dr. Bella). 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 Please follow up with your deboner within 1 week. Keep daily weights of yourself. If you notice your weight has increased dramatically, please call Dr. Dunn immediately. Continue taking the following medications: -Aspirin 81 mg by mouth daily -Plavix 75 mg by mouth daily -Colace 100 mg by mouth twice per day -Lasix 40 mg by mouth twice per day -Symbicort 1 puff twice per day -Spiriva 1 puff daily -Spironolactone 12.5 mg by mouth twice per day -Zocor 40 mg by mouth at night -Toporol XL 25 mg by mouth twice per day Start taking the following medications: -Lisinopril 2.5 mg by mouth daily If you have chest pain, shortness of breath, or any new symptoms please come back to the hospital immediately. Referrals: Osvaldo Morales MD [Staff Physician] - Sourav Ingram MD [Staff Physician] - Flori Bella MD [Primary Care Provider] - Disposition: HOME - Home Medications Comprehensive Discharge Medication List: Ambulatory Orders Aspirin [ASA -] 81 mg PO DAILY 08/10/15 Budesonide/Formeterol Fumarate [SYMBICORT 80/4.5mcg -] 1 inh PO BID 08/10/15 Tiotropium [place] [Spiriva] 1 inh PO DAILY 08/10/15 Levothyroxine [Synthroid -] 75 mcg PO DAILY 09/16/15 Metoprolol Succinate [Toprol XL -] 25 mg PO BID #60 tab.sr.24h 09/24/15 Docusate Sodium [Colace -] 100 mg PO BID 11/06/15 Clopidogrel Bisulfate [Clopidogrel] 75 mg PO DAILY 03/18/16 Furosemide [Lasix -] 40 mg PO BID 03/18/16 Simvastatin [Zocor -] 40 mg PO HS 03/18/16 Spironolactone 12.5 mg PO BID 11/04/16 Lisinopril [Prinivil] 2.5 mg PO DAILY #60 tablet 11/09/16 This patient is new to me today: No Emergency Visit: No Critical Care patient: No - Discharge Referral Referred to [facility] No
== END 2016-11-10 17:47 | disposition home or self-care (01) | DRG 292 ==
LOC: JER 13:12 → JERBED 18:03 → J4W 20:08
PROVIDERS: ADMIT Internal Medicine; ATTEND Internal Medicine
DX: I11.0 Hypertensive heart disease with heart failure (principal); J96.11 Chronic respiratory failure with hypoxia; I47.2 Ventricular tachycardia; I50.23 Acute on chronic systolic (congestive) heart failure; E78.5 Hyperlipidemia, unspecified; E03.9 Hypothyroidism, unspecified; I25.10 Atherosclerotic heart disease of native coronary artery without angina pectoris; Z95.1 Presence of aortocoronary bypass graft; F41.9 Anxiety disorder, unspecified; D72.829 Elevated white blood cell count, unspecified; J44.9 Chronic obstructive pulmonary disease, unspecified; J42 Unspecified chronic bronchitis; Z95.2 Presence of prosthetic heart valve; G47.33 Obstructive sleep apnea (adult) (pediatric); Z87.891 Personal history of nicotine dependence
CPT/HCPCS: 36415; 71010-TC; 71020-TC; 80048; 80053; 80061; 83036; 83721; 83735; 83880; 84100; 84439; 84443; 84484; 85025; 85610; 85730; 93005; 93010; 93306-TC; 93970-TC; 94761; 97116-GP; 97161-GP; 99284-25; J1644

== ENCOUNTER 2016-11-22 20:27 | Inpatient (IN) | payer OTHER ==
--- NOTE | 2016-11-22 21:18 | PDOC ---
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 No change from baseline in difficulty breathing at this time by complains of orthopnea and unintentional weight gain of 8lbs since her last discharge despite 80mg Lasix daily. 11/23/16 14:23 11/23/16 14:28 <Rony Tavarez - Last Filed: 11/23/16 14:30> - General Chief Complaint: Congestive Heart Failure Stated Complaint: SHORTNESS OF BREATH Time Seen by Provider: 11/22/16 21:04 Past History <Justin Sierra - Last Filed: 11/23/16 00:16> - Past Medical History Anemia: No Asthma: Yes Cancer: No Cardiac Disorders: Yes (CHF, , AVR(bioprosthetic) , CAD, CABG, Afib) CVA: No COPD: Yes (02 DEPENDANT 3L NC) CHF: Yes Dementia: No Diabetes: No GI Disorders: No Disorders: No HTN: Yes Hypercholesterolemia: Yes Liver Disease: No Suicide Attempt (Hx): No Seizures: No Thyroid Disease: Yes (HYPO.) - Surgical History Abdominal Surgery: No Appendectomy: Yes Cardiac Surgery: Yes (BYPASS-triple 14 years ago, AVR bioprosthetic 04/23, Pmarker&defib) Cholecystectomy: Yes Lung Surgery: No Neurologic Surgery: No Orthopedic Surgery: Yes (TKR right) - Immunization History Immunization Up to Date: Yes - Psycho/Social/Smoking Cessation Hx Anxiety: No Suicidal Ideation: No Smoking Status: No Smoking History: Unknown if ever smoked Have you smoked in the past 12 months: No Number of Cigarettes Smoked Daily: 0 If you are a former smoker, when did you quit?: 21 YRS Information on smoking cessation initiated: No Hx Alcohol Use: No Drug/Substance Use Hx: No Substance Use Type: None Hx Substance Use Treatment: No <Rony Tavarez - Last Filed: 08/16/17 14:30> - Past Medical History Allergies/Adverse Reactions: Allergies Allergy/AdvReac Type Severity Reaction Status Date / Time albuterol Allergy Hives Verified 11/22/16 20:48 ciprofloxacin Allergy Rash Verified 11/22/16 20:48 clindamycin Allergy Hives Verified 11/22/16 20:48 lactose [Lactose] Allergy Nausea Verified 11/22/16 20:48 levofloxacin [From Levaquin] Allergy Rash Verified 11/22/16 20:48 Penicillins Allergy Swelling Verified 11/22/16 20:48 Shellfish Allergy Difficulty Verified 11/22/16 20:48 Breathing Sulfa (Sulfonamide Allergy Rash Verified 11/22/16 20:48 Antibiotics) trimethobenzamide HCl Allergy Rash Verified 11/22/16 20:48 [From Tigan] atorvastatin calcium AdvReac Unknown "muscle Verified 11/22/16 20:48 [From Lipitor] weakness" morphine AdvReac Unknown blurred Verified 11/22/16 20:48 vision Home Medications: Ambulatory Orders Aspirin [ASA -] 81 mg PO DAILY 08/10/15 Budesonide/Formeterol Fumarate [SYMBICORT 80/4.5mcg -] 1 inh PO BID 08/10/15 Tiotropium [place] [Spiriva] 1 inh PO DAILY 08/10/15 Levothyroxine [Synthroid -] 75 mcg PO DAILY 09/16/15 Metoprolol Succinate [Toprol XL -] 25 mg PO BID #60 tab.sr.24h 09/24/15 Docusate Sodium [Colace -] 100 mg PO BID 11/06/15 Clopidogrel Bisulfate [Clopidogrel] 75 mg PO DAILY 03/18/16 Furosemide [Lasix -] 40 mg PO BID 03/18/16 Simvastatin [Zocor -] 40 mg PO HS 03/18/16 Spironolactone 12.5 mg PO BID 11/04/16 Lisinopril [Prinivil] 2.5 mg PO DAILY #60 tablet 11/09/16 Review of Systems - Review of Systems Constitutional: Yes: Symptoms Reported. No: Chills, Fever HEENTM: No: Symptoms Reported Respiratory: Yes: Orthopnea Cardiac (ROS): Yes: Edema. No: Chest Pain, Lightheadedness, Palpitations, Syncope ABD/GI: No: Symptoms Reported Musculoskeletal: No: Symptoms Reported Integumentary: No: Symptoms Reported Neurological: No: Symptoms reported All Other Systems: Reviewed and Negative <Rony Tavarez - Last Filed: 11/23/16 14:30> *Physical Exam - Vital Signs Last Vital Signs Temp Pulse Resp BP Pulse Ox 98.0 F 86 18 101/66 99 11/22/16 20:48 11/22/16 20:48 11/22/16 20:48 11/22/16 20:48 11/22/16 20:48 <Justin Sierra - Last Filed: 11/23/16 00:16> - Vital Signs Last Vital Signs Temp Pulse Resp BP Pulse Ox 98.0 F 86 18 101/66 99 11/22/16 20:48 11/22/16 20:48 11/22/16 20:48 11/22/16 20:48 11/22/16 20:48 - Physical Exam General Appearance: Yes: Nourished, Appropriately Dressed, Apparent Distress HEENT: positive: EOMI, GRAHAM, Normal ENT Inspection Neck: positive: Trachea midline, Normal Thyroid. negative: Tender Respiratory/Chest: positive: Crackles (bilaterally at bases). negative: Chest Tender Cardiovascular: positive: Regular Rhythm, Regular Rate, S1, S2 Gastrointestinal/Abdominal: positive: Normal Bowel Sounds. negative: Tender Extremity: positive: Pedal Edema (3+ pitting) Neurologic: positive: Fully Oriented, Alert, Normal Mood/Affect <Rony Tavarez - Last Filed: 11/23/16 14:30> ED Treatment Course - LABORATORY CBC & Chemistry Diagram: 11/22/16 21:29 11/22/16 21:29 - ADDITIONAL ORDERS Additional order review: Laboratory Results 11/22/16 11/22/16 21:29 21:29 INR 1.09 Sodium 132 L Potassium 5.2 H Chloride 92 L Carbon Dioxide 33 H Anion Gap 7 L BUN 38 H D Creatinine 0.9 Creat Clearance w eGFR 59.80 Random Glucose 83 Calcium 9.0 Total Bilirubin 0.4 AST 11 L D ALT 15 Alkaline Phosphatase 99 Creatine Kinase 27 Troponin I 0.02 B-Natriuretic Peptide 23424.35 H Total Protein 6.8 Albumin 3.5 11/22/16 21:29 RBC 4.17 MCV 81.2 MCHC 32.8 RDW 15.8 H MPV 9.3 Neutrophils % 77.6 Lymphocytes % 10.7 D Monocytes % 9.6 Eosinophils % 1.9 Basophils % 0.2 - RADIOLOGY Radiology Studies Ordered: Category Date Time Status CHEST X-RAY PORTABLE* [RAD] Stat Radiology 11/22/16 21:04 Taken - Medications Given in the ED: ED Medications Discontinued Medications Generic Name Dose Route Start Last Admin Trade Name Xavier PRN Reason Stop Dose Admin Furosemide 40 mg 11/22/16 21:33 11/22/16 21:43 Lasix Injection - IVPUSH 11/22/16 21:34 40 mg ONCE ONE Administration <Justin Sierra - Last Filed: 11/23/16 00:16> - LABORATORY CBC & Chemistry Diagram: 11/23/16 06:00 11/23/16 06:00 <Rony Tavarez - Last Filed: 11/23/16 14:30> Medical Decision Making - Medical Decision Making 11/23/16 14:27 81F with pmh of systolic CHF (last exacerbation 11/04), CAD s/p CABG, 3L o2 dependent COPD @ home, HTN, aortic valve repalcement on plavix and asa, presents to the Ed with worsening orthopnea, pedal edema and water weight gain. New episode of acute chf exacerbation suspected. Patient received 40mg lasix IV, with bp and urine output monitored. Patient to be admitted for further evaluation and treatment. 11/23/16 14:28 <Rony Tavarez - Last Filed: 11/23/16 14:30> *DC/Admit/Observation/Transfer - Discharge Dispostion Admit: Yes <Justin Sierra - Last Filed: 11/23/16 00:16> <Rony Tavarez - Last Filed: 11/23/16 14:30> Diagnosis at time of Disposition: Acute on chronic systolic CHF (congestive heart failure)
[2016-11-22] MEDS ORDERED: FUROSEMIDE 40 MG/4 ML INJECTABLE VIAL IVPUSH ONE (21:33)
[2016-11-22] MEDS ORDERED: FUROSEMIDE 40 MG/4 ML INJECTABLE VIAL ONE (21:43)
[2016-11-22 22:02] LABS: BASOPHIL 0.2 % (0-2.0); EOSINOPHIL 1.9 % (0-4.5); MCH 26.6 pg (25.7-33.7); MCHC 32.8 g/dl (32.0-36.0); MEAN CELL VOLUME 81.2 fl (80-96); MEAN PLT VOLUME 9.3 fl (7.5-11.1); NEUTROPHILS 77.6 % (42.8-82.8); PLATELET COUNT 252 K/MM3 (134-434); RDW 15.8 % (11.6-15.6); WHITE BLOOD COUNT 10.3 K/mm3 (4.0-10.0)
[2016-11-22 22:23] LABS: ALBUMIN 3.5 g/dl (3.4-5.0); ANION GAP 7 (8-16); BILIRUBIN,TOTAL 0.4 mg/dL (0.2-1.0); CO2 33 mmol/L (21-32); CREATININE 0.9 mg/dL (0.55-1.02); GLUCOSE,RANDOM 83 mg/dL (74-106); SGOT/AST 11 U/L (15-37); SGPT/ALT 15 U/L (12-78); TOT PROT 6.8 g/dl (6.4-8.2)
[2016-11-22 22:26] LABS: ALK PHOS 99 U/L (45-117); CPK 27 IU/L (26-192); TROPONIN I 0.02 ng/ml (0.00-0.05)
[2016-11-22 22:37] LABS: INR 1.09 (0.82-1.09)
--- NOTE | 2016-11-23 00:15 | PDOC ---
Attending Attestation - Resident Resident Name: Rony Tavarez - ED Attending Attestation I have performed the following: I have examined & evaluated the patient, The case was reviewed & discussed with the resident, I agree w/resident's findings & plan, Exceptions are as noted - HPI HPI: 11/23/16 00:10 81-year-old female with history of CHF ([place] [employer] stage IV) COPD on O2 at 3.5 L/m, hypertension, status post aortic valve replacement on aspirin and Plavix presents to the ER with worsening dyspnea at rest and minimal exertion, PND and orthopnea, worsening lower extremity edema and unintentional weight of 8 pounds over the past several days despite increased doses of Lasix (160 mg daily). - Physicial Exam PE: 11/23/16 00:12 Patient is awake and alert, dyspneic and tachypneic; oxygen saturation is noted to be 95% on 3.5 L via nasal cannula. Diffuse crackles are noted bilaterally ( most pronounced at the bases); +3 pitting edema is noted bilaterally to lower extremity; - Medical Decision Making 11/23/16 00:15 Patient is an 81-year-old female with multiple comorbidities, CHF ([place] [employer] stage IV) presents to the ER with worsening dyspnea at rest and with minimal exertion, PND, orthopnea, worsening lower extremity edema and unintentional weight gain of 8 pounds. I suspect CHF exacerbation. We'll administer Lasix-40 mg IV (due to patient's borderline low blood pressure. Will monitor urine output. Will admit for further evaluation and treatment.
[2016-11-23] MEDS ORDERED: FUROSEMIDE 40 MG/4 ML INJECTABLE VIAL IVPUSH ONE (00:49)
[2016-11-23] MEDS ORDERED: FUROSEMIDE 40 MG/4 ML INJECTABLE VIAL ONE (01:04)
--- NOTE | 2016-11-23 01:14 | PN ---
Teaching Attending Note Name of Resident: Christine Pierce ATTENDING PHYSICIAN STATEMENT I saw and evaluated the patient. I reviewed the resident's note and discussed the case with the resident. I agree with the resident's findings and plan as documented. SUBJECTIVE: 81 F with hx of Systolic HF with recent admit on 11/04/16, CAD s/p CABG, COPD on home 02 (3L), HTN, AVR, diaphram dysfunction due to damage of phrenic never, ICD. WHo pw shortness of breaht on exertion and LE edema X1 weeks. States her Lasix was increased Monday to 80mg. Pt. states sha has gained 8 lbs over the past few days. OBJECTIVE: Physical: VS: Vital Signs Period Temp Pulse Resp BP Sys/Camilo Pulse Ox Last 24 Hr 98.0 F 86 18 101/66 99 GEN: NAD, Resting in bed, able to speak full sentences HEENT: NCAT, PERRL, Throat without erythema or exudates, +jvd CARD: RRR S1, S2 RESP: Decreased BS @ bases ABD: BSX4, NTD to palpation EXT: +3 Pitting Edema, bilateral LE CBCD WBC 10.3 K/mm3 (4.0-10.0) H 11/22/16 21:29 RBC 4.17 M/mm3 (3.60-5.2) 11/22/16 21:29 Hgb 11.1 GM/dL (10.7-15.3) 11/22/16 21:29 Hct 33.9 % (32.4-45.2) 11/22/16 21: MCV 81.2 fl (80-96) 11/22/16 21:29 MCHC 32.8 g/dl (32.0-36.0) 11/22/16 21: RDW 15.8 % (11.6-15.6) H 11/22/16 21:29 Plt Count 252 K/MM3 (134-434) 11/22/16 21: MPV 9.3 fl (7.5-11.1) 11/22/16 21:29 CMP Sodium 132 mmol/L (136-145) L 11/22/16 21:29 Potassium 5.2 mmol/L (3.5-5.1) H 11/22/16 21:29 Chloride 92 mmol/L (98-107) L 11/22/16 21:29 Carbon Dioxide 33 mmol/L (21-32) H 11/22/16 21:29 Anion Gap 7 (8-16) L 11/22/16 21:29 BUN 38 mg/dL (7-18) H D 11/22/16 21:29 Creatinine 0.9 mg/dL (0.55-1.02) 11/22/16 21:29 Creat Clearance w eGFR 59.80 (>60) 11/22/16 21:29 Random Glucose 83 mg/dL (74-106) 11/22/16 21:29 Calcium 9.0 mg/dL (8.5-10.1) 11/22/16 21: Total Bilirubin 0.4 mg/dL (0.2-1.0) 11/22/16 21:29 AST 11 U/L (15-37) L D 11/22/16 21:29 ALT 15 U/L (12-78) 11/22/16 21:29 Alkaline Phosphatase 99 U/L (45-117) 11/22/16 21:29 Total Protein 6.8 g/dl (6.4-8.2) 11/22/16 21:29 Albumin 3.5 g/dl (3.4-5.0) 11/22/16 21:29 CARDIAC ENZYMES Creatine Kinase 27 IU/L (26-192) 11/22/16 21:29 Troponin I 0.02 ng/ml (0.00-0.05) 11/22/16 21:29 EKG:Paced Rythem 86, with PVCs, QTc 531 CXR: Vascular Congestion, Cardiomegaly Echo: 11/07- EF 29%, AR, INC RVSP, MR, TR Home Medications Medication Instructions Recorded Aspirin [ASA -] 81 mg PO DAILY 08/10/15 Budesonide/Formeterol Fumarate 1 inh PO BID 08/10/15 [SYMBICORT 80/4.5mcg -] Tiotropium [place] [Spiriva] 1 inh PO DAILY 08/10/15 Levothyroxine [Synthroid -] 75 mcg PO DAILY 09/16/15 Metoprolol Succinate [Toprol XL -] 25 mg PO BID #60 tab.sr.24h 09/24/15 Docusate Sodium [Colace -] 100 mg PO BID 11/06/15 Clopidogrel Bisulfate [Clopidogrel] 75 mg PO DAILY 03/18/16 Furosemide [Lasix -] 40 mg PO BID 03/18/16 Simvastatin [Zocor -] 40 mg PO HS 03/18/16 Spironolactone 12.5 mg PO BID 11/04/16 Lisinopril [Prinivil] 2.5 mg PO DAILY #60 tablet 11/09/16 ASSESSMENT AND PLAN: 81 yo F with hx of CHF, COPD, on 3L 02, Bronchitits, HTN, AVR, Phrenic nerve dammage with diaghpram dysfunction, PPM/ICD, who presents with shortness of breath found to be in CHF Exacerbation. 1.) Acute on Chronic CHF Exacerbation - Daily Wieghts - S/P Lasix 80 In ED - Strict I/O - Mild Hyperkalemia with Tommie-I/Aldactone- Continue for now, but with close monitoring - Trop/EKG-Trend - BB 2.) CAD S/P AVR - C/W Home meds 3.) COPD - C/W Home meds - Nebs prn, c/w Turdoza and symbicort 4.) Hypothyriodism - Chk. TSH - C/W Home Synthriod dose 5.) Dvt Ppx - Heparin [address] in Med- Tele
--- NOTE | 2016-11-23 02:53 | HP ---
CHIEF COMPLAINT: jayden LE edema, SOB with exertion PCP: Dr. Bella Legal Activity Adjudicator: Dr. Morales Meter/Relay Craftsman: Dr. 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 Pt was admitted in October for CHF and discharged 2 weeks ago. Pt reports gradual increase in jayden LE edema since discharge. Pt called Meter/Relay Craftsman (Dr. Ingram) on Monday, who increased her Lasix. Increased dose of Lasix did not resolve her symptoms causing pt to present to ER. Pt reports 8 lbs increase in weight over the last few days. 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 s/p AICD/defibrillator CAD afib CHF HTN HLD hypothyroidism asthma/COPD PAST SURGICAL HISTORY: triple bypass 14 yrs ago aortic valve replacement 2014 pacemaker and defibrillator appendectomy cholecystectomy Right TKR Social History: Smoking: quit 21 yrs ago Alcohol: none Drugs: none Allergies albuterol Allergy (Verified 11/22/16 20:48) Hives ciprofloxacin Allergy (Verified 11/22/16 20:48) Rash clindamycin Allergy (Verified 11/22/16 20:48) Hives lactose [Lactose] Allergy (Verified 11/22/16 20:48) Nausea levofloxacin [From Levaquin] Allergy (Verified 11/22/16 20:48) Rash Penicillins Allergy (Verified 11/22/16 20:48) Swelling Shellfish Allergy (Verified 11/22/16 20:48) Difficulty Breathing Sulfa (Sulfonamide Antibiotics) Allergy (Verified 11/22/16 20:48) Rash trimethobenzamide HCl [From Tigan] Allergy (Verified 11/22/16 20:48) Rash atorvastatin calcium [From Lipitor] Adverse Reaction (Unknown, Verified 20:48) "muscle weakness" zocor ok as per patient morphine Adverse Reaction (Unknown, Verified 11/22/16 20:48) blurred vision HOME MEDICATIONS: Home Medications Medication Instructions Recorded Aspirin [ASA -] 81 mg PO DAILY 08/10/15 Budesonide/Formeterol Fumarate 1 inh PO BID 08/10/15 [SYMBICORT 80/4.5mcg -] Tiotropium [place] [Spiriva] 1 inh PO DAILY 08/10/15 Levothyroxine [Synthroid -] 75 mcg PO DAILY 09/16/15 Metoprolol Succinate [Toprol XL -] 25 mg PO BID #60 tab.sr.24h 09/24/15 Docusate Sodium [Colace -] 100 mg PO BID 11/06/15 Clopidogrel Bisulfate [Clopidogrel] 75 mg PO DAILY 03/18/16 Furosemide [Lasix -] 40 mg PO BID 03/18/16 Simvastatin [Zocor -] 40 mg PO HS 03/18/16 Spironolactone 12.5 mg PO BID 11/04/16 Lisinopril [Prinivil] 2.5 mg PO DAILY #60 tablet 11/09/16 REVIEW OF SYSTEMS CONSTITUTIONAL: Present: weight change HEENT: Absent: throat pain, ear pain, eye pain, visual changes CARDIOVASCULAR: Absent: chest pain, palpitations, irregular heart rate, lightheadedness RESPIRATORY: Present: SOB with exertion, orthopnea Absent: cough, wheezing, stridor GASTROINTESTINAL: Absent: abdominal pain, abdominal distension, nausea, vomiting, diarrhea, constipation GENITOURINARY: Present: frequency SKIN: Absent: rash, itching, pallor ENDOCRINE: Absent: unexplained weight gain, unexplained weight loss, heat intolerance, cold intolerance NEUROLOGIC: Absent: headache, focal weakness or paresthesias, unsteady gait PHYSICAL EXAMINATION Last Vital Signs Temp Pulse Resp BP Pulse Ox 98.0 F 66 21 101/72 91 L 11/22/16 20:48 11/23/16 02:32 11/23/16 02:32 11/23/16 02:32 11/23/16 02:32 GENERAL: Awake, alert, and fully oriented, in no acute distress on 3L O2 via nasal cannula. HEAD: Normal with no signs of trauma. EYES: Pupils equal, round and reactive to light, extraocular movements intact, sclera anicteric, conjunctiva clear. No lid lag. EARS, NOSE, THROAT: Oropharynx clear without exudates. Moist mucous membranes. NECK: Supple without lymphadenopathy, or masses. + JVD. LUNGS: Crackles at Left lung base. No accessory muscle use. HEART: Regular rate and rhythm, normal S1 and S2 without murmur, rub or gallop. ABDOMEN: Soft, nontender, not distended, normoactive bowel sounds, no guarding, no rebound, no masses. LOWER EXTREMITIES: 3+ pitting edema jayden. No calf tenderness. NEUROLOGICAL: Normal speech. PSYCHIATRIC: Cooperative. Good eye contact. Appropriate mood and affect. SKIN: Cold, dry, normal turgor, no rashes or lesions noted, normal capillary refill. Laboratory Tests 11/22/16 11/22/16 11/22/16 21:29 21:29 21:29 WBC 10.3 H RBC 4.17 Hgb 11.1 Hct 33.9 MCV 81.2 MCH 26.6 MCHC 32.8 RDW 15.8 H Plt Count 252 MPV 9.3 Neutrophils % 77.6 Lymphocytes % 10.7 D Monocytes % 9.6 Eosinophils % 1.9 Basophils % 0.2 INR 1.09 Sodium 132 L Potassium 5.2 H Chloride 92 L Carbon Dioxide 33 H Anion Gap 7 L BUN 38 H D Creatinine 0.9 Creat Clearance w eGFR 59.80 Random Glucose 83 Calcium 9.0 Total Bilirubin 0.4 AST 11 L D ALT 15 Alkaline Phosphatase 99 Creatine Kinase 27 Troponin I 0.02 B-Natriuretic Peptide 26074.35 H Total Protein 6.8 Albumin 3.5 IMAGIN11/22/16 CXR - no report yet, but appears to reveal vascular congestion 11/07/16 Echo reveals EF of 29%. 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 1) Systolic CHF exacerbation, NYHA class 3 - likely acute on chronic systolic chf exacerbation vs ACS - trend troponins to r/o ACS - BNP 11,915 - Lasix 40mg injection x 2 given in ER - Lasix 40mg IV BID - cont. home meds of Lisinopril, Metoprolol - Cardiology Consult, Dr. Ingram - PCP Consult, Dr. Bella - I & O 's - daily wts - mild hyperkalemia likely 2/2 home med Spironolactone. Cont. to monitor. 2) afib - [id number] score: 5 - last Echo 10/2016 - cont. home meds ASA, Clopidogrel 3) leukocytosis - afebrile, VSS - cont. to monitor 4) asthma/COPD - cont. 3L O2 nasal cannula - cont. home meds of Symbicort, Spiriva 5) hypothyroidism - f/u TSH - cont. home med of Synthroid 7) HLD - cont. home med of Zocor 8) FEN - Fluids: no IVFs indicated - Electrolytes: hyponatremia likely 2/2 fluid overload, hyperkalemia likely 2 /2 home med of Spironolactone. Cont. to monitor. - Nutrition: sodium restricted diet 9) Prophylaxis - Heparin 5000U SQ TID for DVT prophylaxis Visit type - Emergency Visit Emergency Visit: Yes ED Registration Date: 11/23/16 Care time: The patient presented to the Emergency Department on the above date and was hospitalized for further evaluation of their emergent condition. - New Patient This patient is new to me today: Yes Date on this admission: 11/23/16 - Critical Care Critical Care patient: No
[2016-11-23 04:20] VITALS: BMI 34.2
[2016-11-23] MEDS: HEPARIN NA (PORCINE) 5,000 UNITS/ML 1ML VIAL SQ SCH ×3 (06:53→21:13)
[2016-11-23] MEDS: FUROSEMIDE 40 MG/4 ML INJECTABLE VIAL IVPUSH SCH ×2 (06:53→13:50)
[2016-11-23 08:03] LABS: MCH 26.4 pg (25.7-33.7); MCHC 32.4 g/dl (32.0-36.0); MEAN CELL VOLUME 81.6 fl (80-96); MEAN PLT VOLUME 9.2 fl (7.5-11.1); PLATELET COUNT 245 K/MM3 (134-434); RDW 16.6 % (11.6-15.6); WHITE BLOOD COUNT 9.7 K/mm3 (4.0-10.0)
[2016-11-23 08:59] LABS: ANION GAP 5 (8-16); CALCIUM 8.9 mg/dL (8.5-10.1); CO2 35 mmol/L (21-32); CREATININE 0.9 mg/dL (0.55-1.02); GLUCOSE,RANDOM 86 mg/dL (74-106); THYROID STIMULATING HORMONE 1.88 uIU/ml (0.358-3.74)
[2016-11-23] MEDS: LEVOTHYROXINE NA 75 MCG TABLET (FP) PO SCH (09:34)
[2016-11-23] MEDS: LISINOPRIL 5 MG TABLET (FP) PO SCH (09:34)
[2016-11-23] MEDS: METOPROLOL SUCCINATE 25 MG TAB.SR.24H (FP) PO SCH ×2 (09:34→21:13)
[2016-11-23] MEDS: DOCUSATE SODIUM 100 MG CAPSULE (FP) PO SCH ×2 (09:34→21:13)
[2016-11-23] MEDS: CLOPIDOGREL BISULFATE 75 MG TABLET (FP) PO SCH (09:34)
[2016-11-23] MEDS: ASPIRIN 81 MG CHEWABLE TABLETS PO SCH (09:35)
--- NOTE | 2016-11-23 10:26 | PN ---
Physical Exam: SUBJECTIVE: Patient seen and examined Patient readmitted after complaining of SOB. Patient took 80 mg lasix for the last 2 days without any improvement. Patient uses 3L of O2 at home. OBJECTIVE: Vital Signs Period Temp Pulse Resp BP Sys/Camilo Pulse Ox Last 24 Hr 97.6 F-97.7 F 66-86 21-22 101-112/55-72 91-99 GENERAL: Awake, alert, and fully oriented, in no acute distress on 3L O2 via nasal cannula. HEAD: Normal with no signs of trauma. EYES: Pupils equal, round and reactive to light, extraocular movements intact, sclera anicteric, conjunctiva clear. No lid lag. EARS, NOSE, THROAT: Oropharynx clear without exudates. Moist mucous membranes. NECK: Supple without lymphadenopathy, or masses. + JVD. LUNGS: Crackles at Left lung base. No accessory muscle use. HEART: Regular rate and rhythm, normal S1 and S2 without murmur, rub or gallop. ABDOMEN: Soft, nontender, not distended, normoactive bowel sounds, no guarding, no rebound, no masses. LOWER EXTREMITIES: 3+ pitting edema jayden. No calf tenderness. NEUROLOGICAL: Normal speech. PSYCHIATRIC: Cooperative. Good eye contact. Appropriate mood and affect. SKIN: Cold, dry, normal turgor, no rashes or lesions noted, normal capillary refill. Laboratory Results - last 24 hr 11/23/16 11/23/16 06:00 06:00 WBC 9.7 RBC 4.26 Hgb 11.3 Hct 34.8 MCV 81.6 MCH 26.4 MCHC 32.4 RDW 16.6 H Plt Count 245 MPV 9.2 Sodium 133 L Potassium 4.7 Chloride 93 L Carbon Dioxide 35 H Anion Gap 5 L BUN 36 H Creatinine 0.9 Random Glucose 86 Calcium 8.9 TSH 1.88 D Active Medications Generic Name Dose Route Start Last Admin Trade Name Freq PRN Reason Stop Dose Admin Aclidinium [place] 1 puff 11/23/16 10:00 Tudorza - IH BID [facility] Aspirin 81 mg 11/23/16 10:00 11/23/16 09:35 Asa - PO 81 mg DAILY MAGO Administration Budesonide/Formoterol Fumarate 1 puff 11/23/16 10:00 Symbicort 80/4.5mcg - IH BID [facility] Clopidogrel Bisulfate 75 mg 11/23/16 10:00 11/23/16 09:34 Plavix - PO 75 mg DAILY MAGO Administration Docusate Sodium 100 mg 11/23/16 10:00 11/23/16 09:34 Colace - PO 100 mg BID MAGO Administration Furosemide 40 mg 11/23/16 06:00 11/23/16 06:53 Lasix Injection - IVPUSH 40 mg BID@0600,1400 MAGO Administration Heparin Sodium (Porcine) 5,000 unit 11/23/16 06:00 11/23/16 06:53 Heparin - SQ 5,000 unit TID MAGO Administration Levothyroxine Sodium 75 mcg 11/23/16 10:30 11/23/16 09:34 Synthroid - PO 75 mcg DAILY@0700 MAGO Administration Lisinopril 2.5 mg 11/23/16 10:00 11/23/16 09:34 Prinivil PO 2.5 mg DAILY MAGO Administration Metoprolol Succinate 25 mg 11/23/16 10:00 11/23/16 09:34 Toprol Xl - PO 25 mg BID MAGO Administration Non-Formulary Medication 40 mg 11/23/16 22:00 Simvastatin PO HS MAGO ASSESSMENT/PLAN: 81yo F with PMH of CHF, asthma/COPD, afib, s/p CABG, 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 # Acute on Chronic Systolic CHF exacerbation, NYHA class 3 - likely acute on chronic systolic chf exacerbation vs ACS - troponins negative x - BNP 11,915 - Lasix 40mg injection x 2 given in ER - Lasix 40mg IV BID - cont. home meds of Lisinopril, Metoprolol - Cardiology Consult, Dr. Ingram - PCP Consult, Dr. Bella - I & O 's - daily wts -Patient may be a candidate for entresto -Fluid restriction #Hyperkalemia, resolved -will continue to monitor #CAD s/p cabg -troponins negative x1 -No sign of acs #HTN -Controlled -Will monitor and continue home meds (toporol xl 25 mg po bid, lisinopril 2.5 mg po daily, lasix 40 mg iv bid) # asthma/COPD - cont. 3L O2 nasal cannula - cont. home meds of Symbicort, Spiriva # hypothyroidism - cont. home med of Synthroid 75 mcg po daily 7) HLD - cont. home med of Zocor 8) FEN - Fluids: no IVFs indicated - Electrolytes: wnl - Nutrition: sodium restricted diet 9) Prophylaxis - Heparin 5000U SQ TID for DVT prophylaxis Visit type - Emergency Visit Emergency Visit: Yes ED Registration Date: 11/23/16 Care time: The patient presented to the Emergency Department on the above date and was hospitalized for further evaluation of their emergent condition. - New Patient This patient is new to me today: No - Critical Care Critical Care patient: No
[2016-11-23] MEDS: BUDESONIDE/FORMETEROL FUMARATE 80/4.5 mcg INHALER IH SCH ×2 (11:05→21:14)
[2016-11-23] MEDS: ACLIDINIUM BROMIDE 400 MCG/INH AERO.POWD IH SCH ×2 (11:05→21:14)
--- NOTE | 2016-11-23 11:55 | PN ---
Teaching Attending Note Name of Resident: Lance Walters ATTENDING PHYSICIAN STATEMENT I saw and evaluated the patient. I reviewed the resident's note and discussed the case with the resident. I agree with the resident's findings and plan as documented. SUBJECTIVE:continues to be SOB, unable to get out of bed due to sob. states she doubled her lasix at home for 2 days without any relief. was also requiring 3.5L of NC to maintain saturations. typically uses 3L at home. claims medication compliance and diet compliance. denies Cp, fever, chills, N/V/C/D OBJECTIVE: Last Vital Signs Temp Pulse Resp BP Pulse Ox 97.7 F 82 22 112/60 99 11/23/16 06:00 11/23/16 06:00 11/23/16 06:00 11/23/16 06:00 11/23/16 06:00 Intake & Output 11/20/16 11/21/16 11/22/16 11/23/16 23:59 23:59 23:59 23:59 Intake Total 420 Balance 420 Weight 169 lb 169 lb 6 oz General NAD CV S1 S2 RRR Lungs B/L crackles from mid lung field to bases Extremities 3+ pitting edema B/L LE ASSESSMENT AND PLAN: 81yo F with PMH systolic CHF, CAD s/p CABG +PPM AVR, HTN, 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 Acute on chronic systolic CHF exacerbation- elevated BNP. clinical signs of volume overload. no change in weight from yesterday to today. cont lasix IV BID. will likely require medication adjustment due to frequent hospitalization for CHF. perhaps a candidate for entresto. will d/w cardio. strict I&O, daily weights, fluid restriction 2. sustained Vtach- 12 beats of vtach. with PPM. asymptomatic. on betablocker akin. check Mg level. cardio aware 3. Hyperkalemia- resolved. does not seem to be persistent. on acei 4. CAD s/p CABG with PPM- no signs of ACS. 5. HTN- controlled 6. s/p phrenic nerve dysfucntion on home O2- saturating 97% on 2.5L NC. cont management 7. DVT ppx- hep sq
[2016-11-23 13:55] LABS: MAGNESIUM 2.6 mg/dL (1.8-2.4)
--- NOTE | 2016-11-23 16:12 | CONSULT ---
Consult Consult Specialty:: Nephrology - History of Present Illness Chief Complaint: shortness of breath History of Present Illness: Pt is an 81 year old female with pmhx listed who I sent to the hospital yesterday for increased dyspnea. Pt was recently discharged from [facility] after being treated for a CHF exacerbation. She denies chest pain. She called me last night saying that she could not breath. She has beentaking 80 mg of lasix twice per day. She complains of lower extremity edema. - History Source History Provided By: Patient - Past Medical History Cardio/Vascular: Yes: AFIB, Aortic Stenosis (s/p AVR), CAD, CHF (Chronic combined systolic/diastolic HF), HTN, Hyperlipdemia, Murmur, Other (aortic valve replacement) Pulmonary: Yes: COPD, Other (paralyzed diaghragm) ...: No Psych: Yes: Anxiety, Depression, Panic Musculoskeletal: Yes: Chronic low back pain Endocrine: Yes: Hypothyroidism - Past Surgical History Past Surgical History: Yes: Appendectomy, CABG, Cholecystectomy, , Hysterectomy, Valve Replacement (AVR) - Alcohol/Substance Use Hx Alcohol Use: No History of Substance Use: reports: None - Smoking History Smoking history: Unknown if ever smoked Have you smoked in the past 12 months: No Aproximately how many cigarettes per day: 0 If you are a former smoker, when did you quit?: 21 YRS - Social History Usual Living Arrangement: With Spouse ADL: Independent History of Recent Travel: No Home Medications - Allergies Allergies/Adverse Reactions: Allergies Allergy/AdvReac Type Severity Reaction Status Date / Time albuterol Allergy Hives Verified 11/22/16 20:48 ciprofloxacin Allergy Rash Verified 11/22/16 20:48 clindamycin Allergy Hives Verified 11/22/16 20:48 lactose [Lactose] Allergy Nausea Verified 11/22/16 20:48 levofloxacin [From Levaquin] Allergy Rash Verified 11/22/16 20:48 Penicillins Allergy Swelling Verified 11/22/16 20:48 Shellfish Allergy Difficulty Verified 11/22/16 20:48 Breathing Sulfa (Sulfonamide Allergy Rash Verified 11/22/16 20:48 Antibiotics) trimethobenzamide HCl Allergy Rash Verified 11/22/16 20:48 [From Tigan] atorvastatin calcium AdvReac Unknown "muscle Verified 11/22/16 20:48 [From Lipitor] weakness" morphine AdvReac Unknown blurred Verified 11/22/16 20:48 vision - Home Medications Home Medications: Ambulatory Orders Aspirin [ASA -] 81 mg PO DAILY 08/10/15 Budesonide/Formeterol Fumarate [SYMBICORT 80/4.5mcg -] 1 inh PO BID 08/10/15 Tiotropium [place] [Spiriva] 1 inh PO DAILY 08/10/15 Levothyroxine [Synthroid -] 75 mcg PO DAILY 09/16/15 Metoprolol Succinate [Toprol XL -] 25 mg PO BID #60 tab.sr.24h 09/24/15 Docusate Sodium [Colace -] 100 mg PO BID 11/06/15 Clopidogrel Bisulfate [Clopidogrel] 75 mg PO DAILY 03/18/16 Furosemide [Lasix -] 40 mg PO BID 03/18/16 Simvastatin [Zocor -] 40 mg PO HS 03/18/16 Spironolactone 12.5 mg PO BID 11/04/16 Lisinopril [Prinivil] 2.5 mg PO DAILY #60 tablet 11/09/16 Family Disease History - Family Disease History Family History: Denies Review of Systems - Review of Systems Constitutional: reports: No Symptoms Eyes: reports: No Symptoms HENT: reports: No Symptoms Cardiovascular: reports: Edema, Shortness of Breath Respiratory: reports: SOB on Exertion Genitourinary: reports: No Symptoms Musculoskeletal: reports: No Symptoms Endocrine: reports: No Symptoms Hematology/Lymphatic: reports: No Symptoms Physical Exam Vital Signs: Vital Signs Temperature 98.7 F 11/23/16 14:00 Pulse Rate 87 11/23/16 14:00 Respiratory Rate 20 11/23/16 14:00 Blood Pressure 113/60 11/23/16 14:00 O2 Sat by Pulse Oximetry (%) 96 11/23/16 10:00 Constitutional: Yes: Calm Eyes: Yes: Conjunctiva Clear HENT: Yes: Atraumatic Cardiovascular: Yes: S1, S2 Respiratory: Yes: On Nasal O2 Gastrointestinal: Yes: Soft, Abdomen, Obese Renal/: Yes: WNL Edema: Yes Edema: LLE: 2+, RLE: 2+ Neurological: Yes: Oriented Psychiatric: Yes: Oriented Labs: CBC, BMP 11/23/16 06:00 11/23/16 06:00 Laboratory Tests 11/22/16 11/23/16 11/23/16 21:29 06:00 06:00 WBC 9.7 Hgb 11.3 Sodium 133 L Potassium 5.2 H 4.7 Chloride 93 L Carbon Dioxide 35 H BUN 36 H Imaging - Results Chest X-ray: Report Reviewed Problem List - Problems (1) Acute on chronic systolic CHF (congestive heart failure) Code(s): I50.23 - ACUTE ON CHRONIC SYSTOLIC (CONGESTIVE) HEART FAILURE Assessment/Plan Current Medications Generic Name Dose Route Start Last Admin Trade Name Freq PRN Reason Stop Dose Admin Aclidinium [place] 1 puff 11/23/16 10:00 11/23/16 11:05 Tudorza - IH 1 puff BID MAGO Administration Aspirin 81 mg 11/23/16 10:00 11/23/16 09:35 Asa - PO 81 mg DAILY MAGO Administration Budesonide/Formoterol Fumarate 1 puff 11/23/16 10:00 11/23/16 11:05 Symbicort 80/4.5mcg - IH 1 puff BID MAGO Administration Clopidogrel Bisulfate 75 mg 11/23/16 10:00 11/23/16 09:34 Plavix - PO 75 mg DAILY MAGO Administration Docusate Sodium 100 mg 11/23/16 10:00 11/23/16 09:34 Colace - PO 100 mg BID MAGO Administration Furosemide 40 mg 11/23/16 06:00 11/23/16 13:50 Lasix Injection - IVPUSH 40 mg BID@0600,1400 MAGO Administration Heparin Sodium (Porcine) 5,000 unit 11/23/16 06:00 11/23/16 13:50 Heparin - SQ 5,000 unit TID MAGO Administration Levothyroxine Sodium 75 mcg 11/23/16 10:30 11/23/16 09:34 Synthroid - PO 75 mcg DAILY@0700 MAGO Administration Lisinopril 2.5 mg 11/23/16 10:00 11/23/16 09:34 Prinivil PO 2.5 mg DAILY MAGO Administration Metoprolol Succinate 25 mg 11/23/16 10:00 11/23/16 09:34 Toprol Xl - PO 25 mg BID MAGO Administration Non-Formulary Medication 40 mg 11/23/16 22:00 Simvastatin PO HS MAGO 1. dyspnea 2. CHF exacerbation 3. paralyzed hemidiaphragm 4. HTN 5. valvular heart disease 6. azotemia 7. hypothyroid 8. CAD 9. hyponatremia Plan - cont lasix - will likely need a second diuretic, will discuss metolazone with cardio - daily weights - hyponatremia likely from CHF - will follow Dr Bella
--- NOTE | 2016-11-23 16:41 | EKG ---
Test Reason : Blood Pressure : / mmHG Vent. Rate : 086 BPM Atrial Rate : 086 BPM P-R Int : 152 ms QRS Dur : 152 ms QT Int : 444 ms P-R-T Axes : 054 -30 111 degrees QTc Int : 531 ms POOR DATA QUALITY, INTERPRETATION MAY BE ADVERSELY AFFECTED Atrial-sensed ventricular-paced rhythm WITH OCCASIONAL AV dual-paced complexes AND WITH OCCASIONAL PREMATURE VENTRICULAR COMPLEXES ABNORMAL ECG WHEN COMPARED WITH ECG OF 05-NOV-2016 10:25, PREMATURE VENTRICULAR COMPLEXES ARE NOW PRESENT VENT. RATE HAS DECREASED BY 7 BPM Confirmed by RENAY BARFIELD MD ([id number]) on 11/23/2016 4:40:41 PM Referred By: Confirmed By:RENAY BARFIELD MD
[2016-11-23] MEDS ORDERED: PT OWN MED DRAWER 7, Y5N ONE (20:49)
[2016-11-23] MEDS ORDERED: PATIENT'S OWN MEDICATION (NON-FORMULARY) (Simvastatin 40 MG) PO SCH (22:00)
[2016-11-24] MEDS: LEVOTHYROXINE NA 75 MCG TABLET (FP) PO SCH (06:05)
[2016-11-24] MEDS: HEPARIN NA (PORCINE) 5,000 UNITS/ML 1ML VIAL SQ SCH ×3 (06:05→21:24)
[2016-11-24] MEDS: FUROSEMIDE 40 MG/4 ML INJECTABLE VIAL IVPUSH SCH ×2 (06:05→15:00)
[2016-11-24 08:05] LABS: ANION GAP 8 (8-16); CALCIUM 9.2 mg/dL (8.5-10.1); CO2 33 mmol/L (21-32); CPK 31 IU/L (26-192); CREATININE 0.9 mg/dL (0.55-1.02); GLUCOSE,RANDOM 90 mg/dL (74-106); MAGNESIUM 2.6 mg/dL (1.8-2.4); TROPONIN I 0.05 ng/ml (0.00-0.05)
--- NOTE | 2016-11-24 08:15 | CON.CARD ---
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 No change from baseline in difficulty breathing at this time by complains of orthopnea and unintentional weight gain of 8lbs since her last discharge despite 80mg Lasix daily. - History Source History Provided By: Patient, Medical Record Limitations to Obtaining History: No Limitations - Past Medical History Cardio/Vascular: Yes: AFIB, Aortic Stenosis (s/p AVR), CAD, CHF (Chronic combined systolic/diastolic HF), HTN, Hyperlipdemia, Murmur, Other (aortic valve replacement) Pulmonary: Yes: COPD, Other (paralyzed diaghragm) Reproductive: Yes: Postmenopausal ...: No Psych: Yes: Anxiety, Depression, Panic Musculoskeletal: Yes: Chronic low back pain Endocrine: Yes: Hypothyroidism - Past Surgical History Past Surgical History: Yes: Appendectomy, CABG, Cholecystectomy, , Hysterectomy, Valve Replacement (AVR) - Alcohol/Substance Use Hx Alcohol Use: No History of Substance Use: reports: None - Smoking History Smoking history: Unknown if ever smoked Have you smoked in the past 12 months: No Aproximately how many cigarettes per day: 0 If you are a former smoker, when did you quit?: 21 YRS - Social History Usual Living Arrangement: With Spouse ADL: Independent History of Recent Travel: No Home Medications - Allergies Allergies/Adverse Reactions: Allergies Allergy/AdvReac Type Severity Reaction Status Date / Time albuterol Allergy Hives Verified 11/22/16 20:48 ciprofloxacin Allergy Rash Verified 11/22/16 20:48 clindamycin Allergy Hives Verified 11/22/16 20:48 lactose [Lactose] Allergy Nausea Verified 11/22/16 20:48 levofloxacin [From Levaquin] Allergy Rash Verified 11/22/16 20:48 Penicillins Allergy Swelling Verified 11/22/16 20:48 Shellfish Allergy Difficulty Verified 11/22/16 20:48 Breathing Sulfa (Sulfonamide Allergy Rash Verified 11/22/16 20:48 Antibiotics) trimethobenzamide HCl Allergy Rash Verified 11/22/16 20:48 [From Tigan] atorvastatin calcium AdvReac Unknown "muscle Verified 11/22/16 20:48 [From Lipitor] weakness" morphine AdvReac Unknown blurred Verified 11/22/16 20:48 vision - Home Medications Home Medications: Ambulatory Orders Aspirin [ASA -] 81 mg PO DAILY 08/10/15 Budesonide/Formeterol Fumarate [SYMBICORT 80/4.5mcg -] 1 inh PO BID 08/10/15 Tiotropium [place] [Spiriva] 1 inh PO DAILY 08/10/15 Levothyroxine [Synthroid -] 75 mcg PO DAILY 09/16/15 Metoprolol Succinate [Toprol XL -] 25 mg PO BID #60 tab.sr.24h 09/24/15 Docusate Sodium [Colace -] 100 mg PO BID 11/06/15 Clopidogrel Bisulfate [Clopidogrel] 75 mg PO DAILY 03/18/16 Furosemide [Lasix -] 40 mg PO BID 03/18/16 Simvastatin [Zocor -] 40 mg PO HS 03/18/16 Spironolactone 12.5 mg PO BID 11/04/16 Lisinopril [Prinivil] 2.5 mg PO DAILY #60 tablet 11/09/16 Family Disease History - Family Disease History Family History: Denies Review of Systems - Review of Systems Constitutional: reports: Weakness Eyes: reports: No Symptoms HENT: reports: No Symptoms Neck: reports: No Symptoms Cardiovascular: reports: Shortness of Breath Respiratory: reports: SOB Gastrointestinal: reports: No Symptoms Genitourinary: reports: No Symptoms Musculoskeletal: reports: Muscle Weakness Integumentary: reports: No Symptoms Neurological: reports: Weakness Psychiatric: reports: Anxiety, Depression - Risk Factors Known Risk Factors: Yes: Age, Hypercholesterolemia, Hypertension, Physical Inactivity, Other (systolic CHF) Vital Signs: Vital Signs Temperature 97.5 F L 11/24/16 06:00 Pulse Rate 87 11/24/16 06:00 Respiratory Rate 20 11/24/16 06:00 Blood Pressure 106/58 11/24/16 06:00 O2 Sat by Pulse Oximetry (%) 97 11/23/16 21:00 Constitutional: Yes: Anxious Eyes: Yes: WNL HENT: Yes: WNL Neck: Yes: WNL Respiratory: Yes: Regular Gastrointestinal: Yes: Soft Renal/: No: Anuria Cardiovascular: Yes: Regular Rate and Rhythm JVD: Yes Carotid Bruit: No PMI: Displaced Heart Sounds: Yes: S1, Split S2 Murmur: Yes: Systolic Murmur, Grade 2 Musculoskeletal: Yes: Joint Stiffness, Muscle Weakness Extremities: Yes: Cool Edema: Yes Edema: LLE: 2+, RLE: 2+ Peripheral Pulses WNL: No Peripheral Pulses: 1+ Left Doralis Pedis, 1+ Right Dorsalis Pedis Neurological: Yes: Alert, Oriented, Weakness Psychiatric: Yes: Other - Other Data Labs, Other Data: CBC, BMP 11/24/16 05:35 INR, PTT INR 1.09 (0.82-1.09) 11/22/16 21:29 Troponin, BNP 11/24/16 05:35 Troponin I 0.05 Troponin, BNP 11/24/16 05:35 Troponin I 0.05 Imaging - Results Chest X-ray: Image Reviewed (cardiac enlargement; mild-moderate CHF) EKG: Image Reviewed (atrial-sensed, V-paced) Problem List - Problems (1) Nonsustained ventricular tachycardia Assessment/Plan: Increase metoprolol ER as tolerated (BP; symptoms). Code(s): I47.2 - VENTRICULAR TACHYCARDIA (2) Shortness of breath Code(s): R06.02 - SHORTNESS OF BREATH (3) Systolic and diastolic CHF w/reduced LV function, NYHA class 4 Assessment/Plan: On beta blockers and lisinopril. Ideally, start Aldactone (though caution with potential for hyperkalemia; f/u BUN/Cr, electrolytes). On furosemide; f/u Is and Os, daily weight. Code(s): I50.40 - UNSP COMBINED SYSTOLIC AND DIASTOLIC (CONGESTIVE) HRT FAIL (4) Anxiety 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 Code(s): F41.0 - PANIC DISORDER WITHOUT AGORAPHOBIA (5) Aortic valve replaced Code(s): Z95.2 - PRESENCE OF PROSTHETIC HEART VALVE (6) CAD (coronary artery disease) Code(s): I25.10 - ATHSCL HEART DISEASE OF [place] CORONARY ARTERY W/O ANG PCTRS (7) COPD bronchitis Code(s): J44.9 - CHRONIC OBSTRUCTIVE PULMONARY DISEASE, UNSPECIFIED (8) Diabetes Code(s): E11.9 - TYPE 2 DIABETES MELLITUS WITHOUT COMPLICATIONS (9) Hx of CABG Code(s): Z95.1 - PRESENCE OF AORTOCORONARY BYPASS GRAFT (10) Hyperlipidemia Code(s): E78.5 - HYPERLIPIDEMIA, UNSPECIFIED (11) Hypertension Code(s): I10 - ESSENTIAL (PRIMARY) HYPERTENSION (12) Hypothyroidism Code(s): E03.9 - HYPOTHYROIDISM, UNSPECIFIED (13) ICD (implantable cardioverter-defibrillator) in place Code(s): Z95.810 - PRESENCE OF AUTOMATIC (IMPLANTABLE) CARDIAC DEFIBRILLATOR (14) Sleep apnea in adult Code(s): G47.33 - OBSTRUCTIVE SLEEP APNEA (ADULT) (PEDIATRIC)
[2016-11-24 08:16] LABS: BASOPHIL 0.3 % (0-2.0); EOSINOPHIL 2.9 % (0-4.5); MCH 26.5 pg (25.7-33.7); MCHC 32.7 g/dl (32.0-36.0); MEAN CELL VOLUME 81.1 fl (80-96); MEAN PLT VOLUME 9.8 fl (7.5-11.1); PLATELET COUNT 268 K/MM3 (134-434); RDW 16.3 % (11.6-15.6); WHITE BLOOD COUNT 7.7 K/mm3 (4.0-10.0)
[2016-11-24] MEDS: BUDESONIDE/FORMETEROL FUMARATE 80/4.5 mcg INHALER IH SCH ×2 (09:00→21:24)
[2016-11-24] MEDS: CLOPIDOGREL BISULFATE 75 MG TABLET (FP) PO SCH (09:32)
[2016-11-24] MEDS: ASPIRIN 81 MG CHEWABLE TABLETS PO SCH (09:33)
[2016-11-24] MEDS: DOCUSATE SODIUM 100 MG CAPSULE (FP) PO SCH ×2 (09:33→21:24)
[2016-11-24] MEDS: ACLIDINIUM BROMIDE 400 MCG/INH AERO.POWD IH SCH ×2 (09:43→21:31)
[2016-11-24] MEDS: METOPROLOL SUCCINATE 25 MG TAB.SR.24H (FP) PO SCH ×2 (09:59→21:24)
[2016-11-24] MEDS: LISINOPRIL 5 MG TABLET (FP) PO SCH ×2 (10:42→13:13)
[2016-11-24] MEDS: SPIRONOLACTONE 25 MG TABLET (FP) PO SCH (12:56)
--- NOTE | 2016-11-24 14:41 | PN ---
Teaching Attending Note Name of Resident: Lance Walters ATTENDING PHYSICIAN STATEMENT I saw and evaluated the patient. I reviewed the resident's note and discussed the case with the resident. I agree with the resident's findings and plan as documented. SUBJECTIVE:continues to be short of breath. unable to get out of bed. + orthopnea. denies CP, fever, chills, N/V/C/D OBJECTIVE: Last Vital Signs Temp Pulse Resp BP Pulse Ox 97.5 F L 84 20 99/41 99 11/24/16 14:00 11/24/16 14:00 11/24/16 14:00 11/24/16 14:00 11/24/16 10:00 Intake & Output 11/21/16 11/22/16 11/23/16 11/24/16 23:59 23:59 23:59 23:59 Intake Total 870 Balance 870 Weight 169 lb 169 lb 6 oz 170 lb General NAD CV S1 S2 RRR Lungs B/L crackles from mid lung field to bases Extremities 3+ pitting edema B/L LE ASSESSMENT AND PLAN: 81yo F with PMH systolic CHF, CAD s/p CABG +PPM AVR, HTN, 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 Acute on chronic systolic CHF exacerbation-no clinical improvement. higher oxygen requirements then baseline. on lasix. started on spirolactone. will need to d/w cardio about starting metolazone for additional diuresis as pt not had much change in weight status. candidate for entresto? strict I&O, daily weights , fluid restriction 2. sustained Vtach-no repeated episodes. unable to titrate up betablocker due to BP. will cont to monitor. Mg level elevated 3. Hyperkalemia- resolved. does not seem to be persistent. on acei 4. CAD s/p CABG with PPM- no signs of ACS. 5. HTN- controlled 6. s/p phrenic nerve dysfucntion on home O2- saturating 97% on 2.5L NC. cont management 7. DVT ppx- hep sq
--- NOTE | 2016-11-24 16:35 | PN ---
Physical Exam: SUBJECTIVE: Patient seen and examined No acute events overnight. Patient complained of orthopnea. Needed to be increased to 3.5 L of O2 and slept in chair. Patient feeling better this AM. OBJECTIVE: Vital Signs Period Temp Pulse Resp BP Sys/Camilo Pulse Ox Last 24 Hr 97.4 F-97.9 F 78-95 19-20 94-113/41-58 97-99 GENERAL: Awake, alert, and fully oriented, in no acute distress on 3L O2 via nasal cannula. HEAD: Normal with no signs of trauma. EYES: Pupils equal, round and reactive to light, extraocular movements intact, sclera anicteric, conjunctiva clear. No lid lag. EARS, NOSE, THROAT: Oropharynx clear without exudates. Moist mucous membranes. NECK: Supple without lymphadenopathy, or masses. LUNGS: Crackles bilateral bases. No accessory muscle use. HEART: Regular rate and rhythm, normal S1 and S2 without murmur, rub or gallop. ABDOMEN: Soft, nontender, not distended, normoactive bowel sounds, no guarding, no rebound, no masses. LOWER EXTREMITIES: 3+ pitting edema jayden. No calf tenderness. NEUROLOGICAL: Normal speech. PSYCHIATRIC: Cooperative. Good eye contact. Appropriate mood and affect. SKIN: Cold, dry, normal turgor, no rashes or lesions noted, normal capillary refill. Laboratory Results - last 24 hr 11/24/16 11/24/16 11/24/16 05:35 05:35 11:45 WBC 7.7 RBC 4.28 Hgb 11.3 Hct 34.7 MCV 81.1 MCH 26.5 MCHC 32.7 RDW 16.3 H Plt Count 268 MPV 9.8 Neutrophils % 75.0 Lymphocytes % 10.9 Monocytes % 10.9 H Eosinophils % 2.9 Basophils % 0.3 Sodium 133 L Potassium 4.8 Chloride 92 L Carbon Dioxide 33 H Anion Gap 8 BUN 34 H Creatinine 0.9 Random Glucose 90 Calcium 9.2 Phosphorus 4.0 Magnesium 2.6 H Creatine Kinase 31 Troponin I 0.05 0.05 Active Medications Generic Name Dose Route Start Last Admin Trade Name Freq PRN Reason Stop Dose Admin Aclidinium [place] 1 puff 11/23/16 10:00 11/24/16 09:43 Tudorza - IH 1 puff BID [facility] Administration Aspirin 81 mg 11/23/16 10:00 11/24/16 09:33 Asa - PO 81 mg DAILY [facility] Administration Budesonide/Formoterol Fumarate 1 puff 11/23/16 10:00 11/24/16 09:00 Symbicort 80/4.5mcg - IH 1 puff BID [facility] Administration Clopidogrel Bisulfate 75 mg 11/23/16 10:00 11/24/16 09:32 Plavix - PO 75 mg DAILY [facility] Administration Docusate Sodium 100 mg 11/23/16 10:00 11/24/16 09:33 Colace - PO 100 mg BID [facility] Administration Furosemide 40 mg 11/23/16 06:00 11/24/16 15:00 Lasix Injection - IVPUSH 40 mg BID@0600,1400 [facility] Administration Heparin Sodium (Porcine) 5,000 unit 11/23/16 06:00 11/24/16 14:36 Heparin - SQ 5,000 unit TID [facility] Administration Levothyroxine Sodium 75 mcg 11/23/16 10:30 11/24/16 06:05 Synthroid - PO 75 mcg DAILY@0700 [facility] Administration Lisinopril 2.5 mg 11/23/16 10:00 11/24/16 13:13 Prinivil PO 2.5 mg DAILY [facility] Administration Metoprolol Succinate 25 mg 11/23/16 10:00 11/24/16 09:59 Toprol Xl - PO 25 mg BID [facility] Administration Non-Formulary Medication 40 mg 11/23/16 22:00 Simvastatin PO HS [facility] Spironolactone 25 mg 11/24/16 12:30 11/24/16 12:56 Aldactone - PO Not Given DAILY [facility] ASSESSMENT/PLAN: 81yo F with PMH of CHF, asthma/COPD, afib, s/p CABG, 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 # Acute on Chronic Systolic CHF exacerbation, NYHA class 3 - 2nd troponin increased, 3rd stayed the same, will get a 4th - likely acute on chronic systolic chf exacerbation vs ACS - BNP 11,915 - Lasix 40mg injection x 2 given in ER - Lasix 40mg IV BID - cont. 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 - Cardiology Consult, Dr. Ingram - PCP Consult, Dr. Bella - I & O 's - daily wts -Patient may be a candidate for entresto -Fluid restriction #Hyperkalemia, resolved -will continue to monitor #CAD s/p cabg - 2nd troponin increased, 3rd stayed the same, will get a 4th -No sign of acs #HTN -Controlled -Will monitor and continue home meds (toporol xl 25 mg po bid, lisinopril 2.5 mg po daily, lasix 40 mg iv bid) # asthma/COPD - cont. 3L O2 nasal cannula - cont. home meds of Symbicort, Spiriva # hypothyroidism - cont. home med of Synthroid 75 mcg po daily 7) HLD - cont. home med of Zocor 8) FEN - Fluids: no IVFs indicated - Electrolytes: wnl - Nutrition: sodium restricted diet 9) Prophylaxis - Heparin 5000U SQ TID for DVT prophylaxis Visit type - Emergency Visit Emergency Visit: Yes ED Registration Date: 11/23/16 Care time: The patient presented to the Emergency Department on the above date and was hospitalized for further evaluation of their emergent condition. - New Patient This patient is new to me today: No - Critical Care Critical Care patient: No
--- NOTE | 2016-11-24 17:22 | PN ---
Progress Note, Physician History of Present Illness: Pt seen and examined at bedside. She is awake and alert. She still complains of lower extremity edema. - Current Medication List Current Medications: Active Medications Aclidinium [place] (Tudorza -) 1 puff IH BID [facility] Last Admin: 11/24/16 09:43 Dose: 1 puff Aspirin (Asa -) 81 mg PO DAILY [facility] Last Admin: 11/24/16 09:33 Dose: 81 mg Budesonide/Formoterol Fumarate (Symbicort 80/4.5mcg -) 1 puff IH BID [facility] Last Admin: 11/24/16 09:00 Dose: 1 puff Clopidogrel Bisulfate (Plavix -) 75 mg PO DAILY [facility] Last Admin: 11/24/16 09:32 Dose: 75 mg Docusate Sodium (Colace -) 100 mg PO BID [facility] Last Admin: 11/24/16 09:33 Dose: 100 mg Furosemide (Lasix Injection -) 40 mg IVPUSH BID@0600,1400 [facility] Last Admin: 11/24/16 15:00 Dose: 40 mg Heparin Sodium (Porcine) (Heparin -) 5,000 unit SQ TID [facility] Last Admin: 11/24/16 14:36 Dose: 5,000 unit Levothyroxine Sodium (Synthroid -) 75 mcg PO DAILY@0700 [facility] Last Admin: 11/24/16 06:05 Dose: 75 mcg Lisinopril (Prinivil) 2.5 mg PO DAILY [facility] Last Admin: 11/24/16 13:13 Dose: 2.5 mg Metoprolol Succinate (Toprol Xl -) 25 mg PO BID [facility] Last Admin: 11/24/16 09:59 Dose: 25 mg Non-Formulary Medication (Simvastatin) 40 mg PO [facility] Spironolactone (Aldactone -) 25 mg PO DAILY [facility] Last Admin: 11/24/16 12:56 Dose: Not Given - Objective Vital Signs: Vital Signs Temperature 97.5 F L 11/24/16 14:00 Pulse Rate 84 11/24/16 14:00 Respiratory Rate 20 11/24/16 14:00 Blood Pressure 99/41 11/24/16 14:00 O2 Sat by Pulse Oximetry (%) 99 11/24/16 10:00 Constitutional: Yes: Calm Eyes: Yes: Conjunctiva Clear HENT: Yes: Atraumatic Cardiovascular: Yes: S1, S2 Respiratory: Yes: On Nasal O2 Gastrointestinal: Yes: Soft, Abdomen, Obese Genitourinary: Yes: WNL Musculoskeletal: Yes: WNL Extremities: Yes: WNL Edema: Yes Edema: LLE: 2+, RLE: 2+ Neurological: Yes: Oriented Psychiatric: Yes: Oriented Labs: CBC, BMP 11/24/16 05:35 11/24/16 05:35 INR, PTT INR 1.09 (0.82-1.09) 11/22/16 21:29 Problem List - Problems (1) Acute on chronic systolic CHF (congestive heart failure) Code(s): I50.23 - ACUTE ON CHRONIC SYSTOLIC (CONGESTIVE) HEART FAILURE Assessment/Plan Current Medications Generic Name Dose Route Start Last Admin Trade Name Freq PRN Reason Stop Dose Admin Aclidinium [place] 1 puff 11/23/16 10:00 11/24/16 09:43 Tudorza - IH 1 puff BID [facility] Administration Aspirin 81 mg 11/23/16 10:00 11/24/16 09:33 Asa - PO 81 mg DAILY [facility] Administration Budesonide/Formoterol Fumarate 1 puff 11/23/16 10:00 11/24/16 09:00 Symbicort 80/4.5mcg - IH 1 puff BID [facility] Administration Clopidogrel Bisulfate 75 mg 11/23/16 10:00 11/24/16 09:32 Plavix - PO 75 mg DAILY [facility] Administration Docusate Sodium 100 mg 11/23/16 10:00 11/24/16 09:33 Colace - PO 100 mg BID [facility] Administration Furosemide 40 mg 11/23/16 06:00 11/24/16 15:00 Lasix Injection - IVPUSH 40 mg BID@0600,1400 [facility] Administration Heparin Sodium (Porcine) 5,000 unit 11/23/16 06:00 11/24/16 14:36 Heparin - SQ 5,000 unit TID [facility] Administration Levothyroxine Sodium 75 mcg 11/23/16 10:30 11/24/16 06:05 Synthroid - PO 75 mcg DAILY@0700 [facility] Administration Lisinopril 2.5 mg 11/23/16 10:00 11/24/16 13:13 Prinivil PO 2.5 mg DAILY [facility] Administration Metoprolol Succinate 25 mg 11/23/16 10:00 11/24/16 09:59 Toprol Xl - PO 25 mg BID MAG[facility] Administration Non-Formulary Medication 40 mg 11/23/16 22:00 Simvastatin PO HS MAGO Spironolactone 25 mg 11/24/16 12:30 11/24/16 12:56 Aldactone - PO Not Given DAILY [facility] 1. dyspnea 2. CHF exacerbation 3. paralyzed hemidiaphragm 4. HTN 5. valvular heart disease 6. azotemia 7. hypothyroid 8. CAD 9. hyponatremia Plan - cont with lasix - pt started on spironolactone - start low potassium diet - daily weights - hyponatremia likely from CHF - will follow Dr Bella
[2016-11-25] MEDS: FUROSEMIDE 40 MG/4 ML INJECTABLE VIAL IVPUSH SCH ×2 (05:59→14:15)
[2016-11-25] MEDS: HEPARIN NA (PORCINE) 5,000 UNITS/ML 1ML VIAL SQ SCH ×3 (06:00→21:20)
[2016-11-25] MEDS: LEVOTHYROXINE NA 75 MCG TABLET (FP) PO SCH (06:00)
[2016-11-25 08:05] LABS: BASOPHIL 0.4 % (0-2.0); EOSINOPHIL 3.6 % (0-4.5); MCH 26.5 pg (25.7-33.7); MCHC 32.7 g/dl (32.0-36.0); MEAN CELL VOLUME 80.9 fl (80-96); NEUTROPHILS 71.8 % (42.8-82.8); PLATELET COUNT 245 K/MM3 (134-434); RDW 16.3 % (11.6-15.6); WHITE BLOOD COUNT 8.4 K/mm3 (4.0-10.0)
--- NOTE | 2016-11-25 08:11 | PN ---
Teaching Attending Note Name of Resident: Lance Walters ATTENDING PHYSICIAN STATEMENT I saw and evaluated the patient. I reviewed the resident's note and discussed the case with the resident. I agree with the resident's findings and plan as documented. SUBJECTIVE: No specific complaints She states that she does feel slight better OBJECTIVE: Vitals noted ASSESSMENT AND PLAN: Appreciate student union consultant input Continue Lasix/Spironolactone Can consider increasing lasix dose tomorrow as needed See resident note for full details
[2016-11-25 08:45] LABS: ALBUMIN 3.5 g/dl (3.4-5.0); ANION GAP 10 (8-16); CALCIUM 8.6 mg/dL (8.5-10.1); CO2 32 mmol/L (21-32); GLUCOSE,RANDOM 85 mg/dL (74-106); MAGNESIUM 2.8 mg/dL (1.8-2.4); PHOSPHOROUS 3.8 mg/dL (2.5-4.9)
[2016-11-25 08:48] LABS: ALK PHOS 95 U/L (45-117); BILIRUBIN,TOTAL 0.8 mg/dL (0.2-1.0); CREATININE 0.8 mg/dL (0.55-1.02); SGOT/AST 15 U/L (15-37); SGPT/ALT 16 U/L (12-78); TOT PROT 6.6 g/dl (6.4-8.2)
[2016-11-25] MEDS: ACLIDINIUM BROMIDE 400 MCG/INH AERO.POWD IH SCH ×2 (09:56→21:23)
[2016-11-25] MEDS: CLOPIDOGREL BISULFATE 75 MG TABLET (FP) PO SCH (09:56)
[2016-11-25] MEDS: DOCUSATE SODIUM 100 MG CAPSULE (FP) PO SCH ×2 (09:56→21:20)
[2016-11-25] MEDS: METOPROLOL SUCCINATE 25 MG TAB.SR.24H (FP) PO SCH ×2 (09:56→21:20)
[2016-11-25] MEDS: BUDESONIDE/FORMETEROL FUMARATE 80/4.5 mcg INHALER IH SCH ×2 (09:56→21:22)
[2016-11-25] MEDS: ASPIRIN 81 MG CHEWABLE TABLETS PO SCH (09:56)
[2016-11-25] MEDS: SPIRONOLACTONE 25 MG TABLET (FP) PO SCH (09:56)
[2016-11-25] MEDS: LISINOPRIL 5 MG TABLET (FP) PO SCH (09:56)
--- NOTE | 2016-11-25 13:26 | PN ---
Physical Exam: SUBJECTIVE: Patient seen and examined No acute events overnight. Patient feels well this morning OBJECTIVE: Vital Signs Period Temp Pulse Resp BP Sys/Camilo Pulse Ox Last 24 Hr 97.3 F-970 F 77-87 18-20 90-112/41-54 97-100 GENERAL: Awake, alert, and fully oriented, in no acute distress on 3L O2 via nasal cannula. HEAD: Normal with no signs of trauma. EYES: Pupils equal, round and reactive to light, extraocular movements intact, sclera anicteric, conjunctiva clear. No lid lag. EARS, NOSE, THROAT: Oropharynx clear without exudates. Moist mucous membranes. NECK: Supple without lymphadenopathy, or masses. LUNGS: Crackles bilateral bases. No accessory muscle use. HEART: Regular rate and rhythm, normal S1 and S2 without murmur, rub or gallop. ABDOMEN: Soft, nontender, not distended, normoactive bowel sounds, no guarding, no rebound, no masses. LOWER EXTREMITIES: 3+ pitting edema jayden. No calf tenderness. NEUROLOGICAL: Normal speech. PSYCHIATRIC: Cooperative. Good eye contact. Appropriate mood and affect. SKIN: Cold, dry, normal turgor, no rashes or lesions noted, normal capillary refill. Laboratory Results - last 24 hr 11/24/16 11/25/16 11/25/16 17:50 05:35 05:35 WBC 8.4 RBC 4.32 Hgb 11.4 Hct 34.9 MCV 80.9 MCH 26.5 MCHC 32.7 RDW 16.3 H Plt Count 245 MPV 9.0 Neutrophils % 71.8 Lymphocytes % 12.4 Monocytes % 11.8 H Eosinophils % 3.6 Basophils % 0.4 Sodium 133 L Potassium 4.4 Chloride 91 L Carbon Dioxide 32 Anion Gap 10 BUN 34 H Creatinine 0.8 Creat Clearance w eGFR > 60 Random Glucose 85 Calcium 8.6 Phosphorus 3.8 Magnesium 2.8 H Total Bilirubin 0.8 D AST 15 D ALT 16 Alkaline Phosphatase 95 Troponin I 0.04 Total Protein 6.6 Albumin 3.5 Active Medications Generic Name Dose Route Start Last Admin Trade Name Freq PRN Reason Stop Dose Admin Aclidinium [place] 1 puff 11/23/16 10:00 11/25/16 09:56 Tudorza - IH 1 puff BID MAGO Administration Aspirin 81 mg 11/23/16 10:00 11/25/16 09:56 Asa - PO 81 mg DAILY MAGO Administration Budesonide/Formoterol Fumarate 1 puff 11/23/16 10:00 11/25/16 09:56 Symbicort 80/4.5mcg - IH 1 puff BID MAGO Administration Clopidogrel Bisulfate 75 mg 11/23/16 10:00 11/25/16 09:56 Plavix - PO 75 mg DAILY [facility]O Administration Docusate Sodium 100 mg 11/23/16 10:00 11/25/16 09:56 Colace - PO 100 mg BID MAGO Administration Furosemide 40 mg 11/23/16 06:00 11/25/16 05:59 Lasix Injection - IVPUSH 40 mg BID@0600,1400 [facility] Administration Heparin Sodium (Porcine) 5,000 unit 11/23/16 06:00 11/25/16 06:00 Heparin - SQ Not Given TID [facility] Levothyroxine Sodium 75 mcg 11/23/16 10:30 11/25/16 06:00 Synthroid - PO 75 mcg DAILY@0700 MAGO Administration Lisinopril 2.5 mg 11/23/16 10:00 11/25/16 09:56 Prinivil PO 2.5 mg DAILY [facility] Administration Metoprolol Succinate 25 mg 11/23/16 10:00 11/25/16 09:56 Toprol Xl - PO 25 mg BID [facility]O Administration Non-Formulary Medication 40 mg 11/23/16 22:00 Simvastatin PO HS [facility] Spironolactone 25 mg 11/24/16 12:30 11/25/16 09:56 Aldactone - PO 25 mg DAILY [facility]O Administration ASSESSMENT/PLAN: 81yo F with PMH of CHF, asthma/COPD, afib, s/p CABG, 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 # Acute on Chronic Systolic CHF exacerbation, NYHA class 3 - 2nd troponin increased, 3rd stayed the same, 4th downtrending - BNP 11,915 - Continue Lasix 40mg IV BID - Continue aldactone 25 mgt po daily, monitor potassium - cont. home meds of Lisinopril, Metoprolol - Cardiology Consult, Dr. Ingram - PCP Consult, Dr. Bella - I & O 's - daily wts - Patient may be a candidate for entresto - Fluid restriction #Hyperkalemia, resolved -will continue to monitor #CAD s/p cabg - 2nd troponin increased, 3rd stayed the same, 4th downtrending -No sign of acs #HTN -Controlled -Will monitor and continue home meds (toporol xl 25 mg po bid, lisinopril 2.5 mg po daily, lasix 40 mg iv bid) # asthma/COPD - cont. 3L O2 nasal cannula - cont. home meds of Symbicort, Spiriva # hypothyroidism - cont. home med of Synthroid 75 mcg po daily # HLD - cont. home med of Zocor # FEN - Fluids: no IVFs indicated - Electrolytes: wnl - Nutrition: sodium restricted diet # Prophylaxis - Heparin 5000U SQ TID for DVT prophylaxis Visit type - Emergency Visit Emergency Visit: Yes ED Registration Date: 11/23/16 Care time: The patient presented to the Emergency Department on the above date and was hospitalized for further evaluation of their emergent condition. - New Patient This patient is new to me today: No - Critical Care Critical Care patient: No
[2016-11-25] MEDS ORDERED: guaiFENesin 200 MG/10 ML 10 ML UNIT-DOSE CUPS PO ONE (14:37)
[2016-11-25] MEDS ORDERED: ACETAMINOPHEN 325 MG TABLET (FP) PO ONE (14:37)
--- NOTE | 2016-11-25 16:13 | PN ---
Progress Note, Physician History of Present Illness: Pt seen and examined at bedside. She is awake and alert. She complains of cough. - Current Medication List Current Medications: Active Medications Acetaminophen (Tylenol -) 650 mg PO Q4H PRN PRN Reason: FEVER OR PAIN Aclidinium [place] (Tudorza -) 1 puff IH BID [facility] Last Admin: 11/25/16 09:56 Dose: 1 puff Aspirin (Asa -) 81 mg PO DAILY [facility] Last Admin: 11/25/16 09:56 Dose: 81 mg Budesonide/Formoterol Fumarate (Symbicort 80/4.5mcg -) 1 puff IH BID [facility] Last Admin: 11/25/16 09:56 Dose: 1 puff Clopidogrel Bisulfate (Plavix -) 75 mg PO DAILY [facility] Last Admin: 11/25/16 09:56 Dose: 75 mg Docusate Sodium (Colace -) 100 mg PO BID [facility] Last Admin: 11/25/16 09:56 Dose: 100 mg Furosemide (Lasix Injection -) 40 mg IVPUSH BID@0600,1400 [facility] Last Admin: 11/25/16 14:15 Dose: 40 mg Furosemide (Lasix Injection -) 40 mg IVPUSH ONCE ONE Stop: 11/25/16 18:01 Guaifenesin (Robitussin -) 10 ml PO Q4H PRN PRN Reason: COUGH Heparin Sodium (Porcine) (Heparin -) 5,000 unit SQ TID [facility] Last Admin: 11/25/16 14:15 Dose: 5,000 unit Levothyroxine Sodium (Synthroid -) 75 mcg PO DAILY@0700 [facility] Last Admin: 11/25/16 06:00 Dose: 75 mcg Lisinopril (Prinivil) 2.5 mg PO DAILY [facility] Last Admin: 11/25/16 09:56 Dose: 2.5 mg Metoprolol Succinate (Toprol Xl -) 25 mg PO BID [facility] Last Admin: 11/25/16 09:56 Dose: 25 mg Non-Formulary Medication (Simvastatin) 40 mg PO HS [facility] Spironolactone (Aldactone -) 25 mg PO DAILY [facility] Last Admin: 11/25/16 09:56 Dose: 25 mg - Objective Vital Signs: Vital Signs Temperature 98.1 F 11/25/16 14:09 Pulse Rate 88 11/25/16 14:09 Respiratory Rate 20 11/25/16 14:09 Blood Pressure 109/69 11/25/16 14:09 O2 Sat by Pulse Oximetry (%) 97 11/25/16 09:00 Constitutional: Yes: Calm Eyes: Yes: Conjunctiva Clear HENT: Yes: Atraumatic Cardiovascular: Yes: S1, S2 Respiratory: Yes: On Nasal O2 Gastrointestinal: Yes: Soft, Abdomen, Obese Genitourinary: Yes: WNL Musculoskeletal: Yes: WNL Edema: Yes Edema: LLE: 2+, RLE: 2+ Neurological: Yes: Oriented Psychiatric: Yes: Oriented Labs: CBC, BMP 11/25/16 05:35 11/25/16 05:35 INR, PTT INR 1.09 (0.82-1.09) 11/22/16 21:29 Problem List - Problems (1) Acute on chronic systolic CHF (congestive heart failure) Code(s): I50.23 - ACUTE ON CHRONIC SYSTOLIC (CONGESTIVE) HEART FAILURE Assessment/Plan Current Medications Generic Name Dose Route Start Last Admin Trade Name Freq PRN Reason Stop Dose Admin Acetaminophen 650 mg 11/25/16 14:38 Tylenol - PO Q4H PRN FEVER OR PAIN Aclidinium [place] 1 puff 11/23/16 10:00 11/25/16 09:56 Tudorza - IH 1 puff BID [facility] Administration Aspirin 81 mg 11/23/16 10:00 11/25/16 09:56 Asa - PO 81 mg DAILY [facility] Administration Budesonide/Formoterol Fumarate 1 puff 11/23/16 10:00 11/25/16 09:56 Symbicort 80/4.5mcg - IH 1 puff BID [facility] Administration Clopidogrel Bisulfate 75 mg 11/23/16 10:00 11/25/16 09:56 Plavix - PO 75 mg DAILY [facility] Administration Docusate Sodium 100 mg 11/23/16 10:00 11/25/16 09:56 Colace - PO 100 mg BID [facility] Administration Furosemide 40 mg 11/23/16 06:00 11/25/16 14:15 Lasix Injection - IVPUSH 40 mg BID@0600,1400 [facility] Administration Furosemide 40 mg 11/25/16 18:00 Lasix Injection - IVPUSH 11/25/16 18:01 ONCE ONE Guaifenesin 10 ml 11/25/16 14:38 Robitussin - PO Q4H PRN COUGH Heparin Sodium (Porcine) 5,000 unit 11/23/16 06:00 11/25/16 14:15 Heparin - SQ 5,000 unit TID [facility] Administration Levothyroxine Sodium 75 mcg 11/23/16 10:30 11/25/16 06:00 Synthroid - PO 75 mcg DAILY@0700 [facility] Administration Lisinopril 2.5 mg 11/23/16 10:00 11/25/16 09:56 Prinivil PO 2.5 mg DAILY [facility] Administration Metoprolol Succinate 25 mg 11/23/16 10:00 11/25/16 09:56 Toprol Xl - PO 25 mg BID [facility] Administration Non-Formulary Medication 40 mg 11/23/16 22:00 Simvastatin PO HS [facility] Spironolactone 25 mg 11/24/16 12:30 11/25/16 09:56 Aldactone - PO 25 mg DAILY [facility] Administration Selected Entries 11/22/16 11/23/16 11/23/16 20:48 04:01 06:00 Weight 169 lb 169 lb 6 oz 169 lb 6 oz 11/24/16 11/25/16 06:00 06:00 Weight 170 lb 170 lb 3.2 oz 1. dyspnea 2. CHF exacerbation 3. paralyzed hemidiaphragm 4. HTN 5. valvular heart disease 6. azotemia 7. hypothyroid 8. CAD 9. hyponatremia Plan - pts weight has not changed - increase dose of lasix to 60 bid (she was on 80 po bid at home with no response) - cont spironolactone - daily weights - hyponatremia likely from CHF - will follow Dr Bella
[2016-11-25] MEDS ORDERED: FUROSEMIDE 40 MG/4 ML INJECTABLE VIAL IVPUSH ONE (18:00)
[2016-11-25] MEDS: guaiFENesin 200 MG/10 ML 10 ML UNIT-DOSE CUPS PO PRN (19:54)
[2016-11-25] MEDS: ACETAMINOPHEN 325 MG TABLET (FP) PO PRN (23:36)
[2016-11-26] MEDS: guaiFENesin 200 MG/10 ML 10 ML UNIT-DOSE CUPS PO PRN ×3 (01:47→21:11)
[2016-11-26] MEDS: HEPARIN NA (PORCINE) 5,000 UNITS/ML 1ML VIAL SQ SCH ×3 (06:03→21:10)
[2016-11-26] MEDS: FUROSEMIDE 40 MG/4 ML INJECTABLE VIAL IVPUSH SCH ×2 (06:03→13:18)
[2016-11-26] MEDS: LEVOTHYROXINE NA 75 MCG TABLET (FP) PO SCH (06:04)
--- NOTE | 2016-11-26 07:49 | PN ---
Physical Exam: SUBJECTIVE: Patient seen and examined She complains of increasing cough OBJECTIVE: Vital Signs Period Temp Pulse Resp BP Sys/Camilo Pulse Ox Last 24 Hr 97.8 F-970 F 82-99 18-21 92-128/48-69 97-99 GEN: Awake, alert, NAD PULM: bibasilar crackles CVS: RRR ABD: Soft, NT/ND, NABS EXTREM: Warm, well perfused, pedal edema is relatively unchanged Selected Entries 11/22/16 11/23/16 11/23/16 20:48 04:01 06:00 Weight 76.657 kg 76.827 kg 76.827 kg 11/24/16 11/25/16 11/26/16 06:00 06:00 06:00 Weight 77.111 kg 77.201 kg 77.383 kg Laboratory Results - last 24 hr 11/25/16 11/25/16 05:35 05:35 WBC 8.4 RBC 4.32 Hgb 11.4 Hct 34.9 MCV 80.9 MCH 26.5 MCHC 32.7 RDW 16.3 H Plt Count 245 MPV 9.0 Neutrophils % 71.8 Lymphocytes % 12.4 Monocytes % 11.8 H Eosinophils % 3.6 Basophils % 0.4 Sodium 133 L Potassium 4.4 Chloride 91 L Carbon Dioxide 32 Anion Gap 10 BUN 34 H Creatinine 0.8 Creat Clearance w eGFR > 60 Random Glucose 85 Calcium 8.6 Phosphorus 3.8 Magnesium 2.8 H Total Bilirubin 0.8 D AST 15 D ALT 16 Alkaline Phosphatase 95 Total Protein 6.6 Albumin 3.5 Active Medications Generic Name Dose Route Start Last Admin Trade Name Freq PRN Reason Stop Dose Admin Acetaminophen 650 mg 11/25/16 14:38 11/25/16 23:36 Tylenol - PO 650 mg Q4H PRN Administration FEVER OR PAIN Aclidinium [place] 1 puff 11/23/16 10:00 11/25/16 21:23 Tudorza - IH 1 puff BID [facility] Administration Aspirin 81 mg 11/23/16 10:00 11/25/16 09:56 Asa - PO 81 mg DAILY [facility] Administration Budesonide/Formoterol Fumarate 1 puff 11/23/16 10:00 11/25/16 21:22 Symbicort 80/4.5mcg - IH 1 puff BID [facility] Administration Clopidogrel Bisulfate 75 mg 11/23/16 10:00 11/25/16 09:56 Plavix - PO 75 mg DAILY [facility] Administration Docusate Sodium 100 mg 11/23/16 10:00 11/25/16 21:20 Colace - PO 100 mg BID [facility] Administration Furosemide 60 mg 11/26/16 06:00 11/26/16 06:03 Lasix Injection - IVPUSH 60 mg BID@0600,1400 [facility] Administration Guaifenesin 10 ml 11/25/16 14:38 11/26/16 01:47 Robitussin - PO 10 ml Q4H PRN Administration COUGH Heparin Sodium (Porcine) 5,000 unit 11/23/16 06:00 11/26/16 06:03 Heparin - SQ Not Given TID COUNTS INCLUDE 234 BEDS AT THE [facility] Levothyroxine Sodium 75 mcg 11/23/16 10:30 11/26/16 06:04 Synthroid - PO 75 mcg DAILY@0700 [facility] Administration Lisinopril 2.5 mg 11/23/16 10:00 11/25/16 09:56 Prinivil PO 2.5 mg DAILY [facility] Administration Metoprolol Succinate 25 mg 11/23/16 10:00 11/25/16 21:20 Toprol Xl - PO 25 mg BID [facility] Administration Non-Formulary Medication 40 mg 11/23/16 22:00 Simvastatin PO HS COUNTS INCLUDE 234 BEDS AT [facility] Spironolactone 25 mg 11/24/16 12:30 11/25/16 09:56 Aldactone - PO 25 mg DAILY [facility] Administration ASSESSMENT/PLAN: The patient is an 81 year old female with a significant past medical history of HTN, HLD, CHF, CAD, AVR, atrial fibrillation, s/p pacer/defibrillator, asthma/ COPD, diaphragmatic dysfunction, now HD#3 for acute exacerbation of chronic systolic CHF. # CVS Chronic HTN, HLP, CHF, CAD, A fib S/p AVR, pacer/defib Acute on Chronic Systolic CHF exacerbation, NYHA class 3 Weight had been unchanged for thee days She got an extra dose of lasix yesterday and we increased the dose or today Continue Lasix 60 mg IV BID Check CXR Continue aldactone 25 mg daily Continue to follow daily weights Continue home Lisinopril, Metoprolol Continue Lipitor Continue ASA/Plavix Cardiology following Strict I & O 's Daily weights #PULMONARY Asthma/COPD Diaphragmatic dysfunction Increasing cough Continue 3L O2 nasal cannula Continue home meds of Symbicort, Tudorza Check CXR # ENDOCRINE Hypothyroidism TSH noted Continue Synthroid 75 mcg daily # FEN Na restricted diet Continue diuresis # PROPHYLAXIS Heparin TID Eating PT consult Visit type - Emergency Visit Emergency Visit: Yes ED Registration Date: 11/23/16 Care time: The patient presented to the Emergency Department on the above date and was hospitalized for further evaluation of their emergent condition. - New Patient This patient is new to me today: No - Critical Care Critical Care patient: No
[2016-11-26 08:14] LABS: BASOPHIL 0.4 % (0-2.0); EOSINOPHIL 1.6 % (0-4.5); MCH 26.9 pg (25.7-33.7); MCHC 33.4 g/dl (32.0-36.0); MEAN CELL VOLUME 80.7 fl (80-96); MEAN PLT VOLUME 9.6 fl (7.5-11.1); NEUTROPHILS 79.8 % (42.8-82.8); PLATELET COUNT 265 K/MM3 (134-434); RDW 16.2 % (11.6-15.6); WHITE BLOOD COUNT 10.5 K/mm3 (4.0-10.0)
[2016-11-26 08:28] LABS: ANION GAP 9 (8-16); CO2 34 mmol/L (21-32); CREATININE 0.9 mg/dL (0.55-1.02); GLUCOSE,RANDOM 82 mg/dL (74-106); MAGNESIUM 2.8 mg/dL (1.8-2.4)
[2016-11-26] MEDS: LISINOPRIL 5 MG TABLET (FP) PO SCH (09:10)
[2016-11-26] MEDS: CLOPIDOGREL BISULFATE 75 MG TABLET (FP) PO SCH (09:10)
[2016-11-26] MEDS: METOPROLOL SUCCINATE 25 MG TAB.SR.24H (FP) PO SCH ×2 (09:10→21:10)
[2016-11-26] MEDS: DOCUSATE SODIUM 100 MG CAPSULE (FP) PO SCH ×2 (09:10→21:10)
[2016-11-26] MEDS: ASPIRIN 81 MG CHEWABLE TABLETS PO SCH (09:10)
[2016-11-26] MEDS: SPIRONOLACTONE 25 MG TABLET (FP) PO SCH (09:10)
[2016-11-26] MEDS: BUDESONIDE/FORMETEROL FUMARATE 80/4.5 mcg INHALER IH SCH ×2 (09:11→22:00)
[2016-11-26] MEDS: ACLIDINIUM BROMIDE 400 MCG/INH AERO.POWD IH SCH ×2 (09:11→22:00)
--- NOTE | 2016-11-26 13:00 | PN ---
Progress Note (short form) - Note Progress Note: RENAL Pt awake and alert concerned that her edema is not improving Last Vital Signs Temp Pulse Resp BP Pulse Ox 98.2 F 84 20 84/44 99 11/26/16 14:07 11/26/16 14:07 11/26/16 14:07 11/26/16 14:07 11/26/16 09:00 lungs right clear, left basilar crackles cvs s1s2 rr abd soft ext ++edema neuro a+ox3 Current Medications Generic Name Dose Route Start Last Admin Trade Name Freq PRN Reason Stop Dose Admin Acetaminophen 650 mg 11/25/16 14:38 11/25/16 23:36 Tylenol - PO 650 mg Q4H PRN Administration FEVER OR PAIN Aclidinium [place] 1 puff 11/23/16 10:00 11/26/16 09:11 Tudorza - IH 1 puff BID [facility] Administration Aspirin 81 mg 11/23/16 10:00 11/26/16 09:10 Asa - PO 81 mg DAILY [facility] Administration Budesonide/Formoterol Fumarate 1 puff 11/23/16 10:00 11/26/16 09:11 Symbicort 80/4.5mcg - IH 1 puff BID [facility] Administration Clopidogrel Bisulfate 75 mg 11/23/16 10:00 11/26/16 09:10 Plavix - PO 75 mg DAILY [facility] Administration Docusate Sodium 100 mg 11/23/16 10:00 11/26/16 09:10 Colace - PO 100 mg BID [facility] Administration Furosemide 60 mg 11/26/16 06:00 11/26/16 13:18 Lasix Injection - IVPUSH Not Given BID@0600,1400 [facility] Guaifenesin 10 ml 11/25/16 14:38 11/26/16 09:10 Robitussin - PO 10 ml Q4H PRN Administration COUGH Heparin Sodium (Porcine) 5,000 unit 11/23/16 06:00 11/26/16 13:18 Heparin - SQ 5,000 unit TID [facility] Administration Levothyroxine Sodium 75 mcg 11/23/16 10:30 11/26/16 06:04 Synthroid - PO 75 mcg DAILY@0700 [facility] Administration Lisinopril 2.5 mg 11/23/16 10:00 11/26/16 09:10 Prinivil PO 2.5 mg DAILY [facility] Administration Metoprolol Succinate 25 mg 08/16/17 10:00 11/26/16 09:10 Toprol Xl - PO 25 mg BID [facility] Administration Non-Formulary Medication 40 mg 11/23/16 22:00 Simvastatin PO HS [facility] Spironolactone 25 mg 11/24/16 12:30 11/26/16 09:10 Aldactone - PO 25 mg DAILY [facility] Administration CBC, BMP 11/26/16 06:05 11/26/16 06:05 IMPRESSION 1. dyspnea 2. CHF exacerbation 3. paralyzed hemidiaphragm 4. HTN 5. valvular heart disease 6. azotemia 7. hypothyroid 8. CAD 9. hyponatremia Plan - add zaroxolyn - cont spironolactone - daily weights - hyponatremia likely from CHF and diuretics - will follow [facility]
--- NOTE | 2016-11-26 13:24 | PN ---
Progress Note, Physician Chief Complaint: Pt is anxious; dyspneic on mild exertion. 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 No change from baseline in difficulty breathing at this time by complains of orthopnea and unintentional weight gain of 8lbs since her last discharge despite 80mg Lasix daily. - Current Medication List Current Medications: Active Medications Acetaminophen (Tylenol -) 650 mg PO Q4H PRN PRN Reason: FEVER OR PAIN Last Admin: 11/25/16 23:36 Dose: 650 mg Aclidinium [place] (Tudorza -) 1 puff IH BID [facility] Last Admin: 11/26/16 09:11 Dose: 1 puff Aspirin (Asa -) 81 mg PO DAILY [facility] Last Admin: 11/26/16 09:10 Dose: 81 mg Budesonide/Formoterol Fumarate (Symbicort 80/4.5mcg -) 1 puff IH BID [facility] Last Admin: 11/26/16 09:11 Dose: 1 puff Clopidogrel Bisulfate (Plavix -) 75 mg PO DAILY [facility] Last Admin: 11/26/16 09:10 Dose: 75 mg Docusate Sodium (Colace -) 100 mg PO BID [facility] Last Admin: 11/26/16 09:10 Dose: 100 mg Furosemide (Lasix Injection -) 60 mg IVPUSH BID@0600,1400 [facility] Last Admin: 11/26/16 06:03 Dose: 60 mg Guaifenesin (Robitussin -) 10 ml PO Q4H PRN PRN Reason: COUGH Last Admin: 11/26/16 09:10 Dose: 10 ml Heparin Sodium (Porcine) (Heparin -) 5,000 unit SQ TID [facility] Last Admin: 11/26/16 06:03 Dose: Not Given Levothyroxine Sodium (Synthroid -) 75 mcg PO DAILY@0700 [facility] Last Admin: 11/26/16 06:04 Dose: 75 mcg Lisinopril (Prinivil) 2.5 mg PO DAILY [facility] Last Admin: 11/26/16 09:10 Dose: 2.5 mg Metoprolol Succinate (Toprol Xl -) 25 mg PO BID [facility] Last Admin: 11/26/16 09:10 Dose: 25 mg Non-Formulary Medication (Simvastatin) [address] [facility] Spironolactone (Aldactone -) 25 mg PO DAILY [facility] Last Admin: 11/26/16 09:10 Dose: 25 mg - Objective Vital Signs: Vital Signs Temperature 98.1 F 11/26/16 09:52 Pulse Rate 85 11/26/16 09:52 Respiratory Rate 20 11/26/16 09:52 Blood Pressure 93/49 11/26/16 09:52 O2 Sat by Pulse Oximetry (%) 99 11/26/16 09:00 Constitutional: Yes: Anxious Eyes: Yes: WNL HENT: Yes: WNL Neck: Yes: WNL Cardiovascular: Yes: S1, S2 (split) Respiratory: Yes: Regular, Rales (scattered) Gastrointestinal: Yes: Soft ...Rectal Exam: Yes: Deferred Genitourinary: No: Anuria Musculoskeletal: Yes: Joint Swelling, Muscle Weakness Extremities: Yes: Cool Edema: Yes Edema: LLE: 1+, RLE: 1+ Peripheral Pulses WNL: No Peripheral Pulses: Left Doralis Pedis: 1+, Right Dorsalis Pedis: 1+ Integumentary: Yes: Venous Stasis Changes Neurological: Yes: Alert, Oriented Psychiatric: Yes: Other Labs: CBC, BMP 11/26/16 06:05 11/26/16 06:05 INR, PTT INR 1.09 (0.82-1.09) 11/22/16 21:29 Abnormal Lab Results 11/26/16 11/26/16 06:05 06:05 WBC 10.5 H RDW 16.2 H Sodium 133 L Chloride 90 L Carbon Dioxide 34 H BUN 38 H Magnesium 2.8 H - ....Imaging Chest X-ray: Image Reviewed (elnarged heart; mild-moderate CHF) Other: Image Reviewed (telemetry: paced rhythm; brief run of NSVT) Problem List - Problems (1) Nonsustained ventricular tachycardia Assessment/Plan: Increase metoprolol ER as tolerated (BP; symptoms). Code(s): I47.2 - VENTRICULAR TACHYCARDIA (2) Shortness of breath Code(s): R06.02 - SHORTNESS OF BREATH (3) Systolic and diastolic CHF w/reduced LV function, NYHA class 4 Assessment/Plan: On beta blockers and lisinopril. Aldcactone was started. On furosemide; f/u Is and Os, daily weight. Code(s): I50.40 - UNSP COMBINED SYSTOLIC AND DIASTOLIC (CONGESTIVE) HRT FAIL (4) Anxiety 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 Code(s): F41.0 - PANIC DISORDER WITHOUT AGORAPHOBIA (5) Aortic valve replaced Code(s): Z95.2 - PRESENCE OF PROSTHETIC HEART VALVE (6) CAD (coronary artery disease) Code(s): I25.10 - ATHSCL HEART DISEASE OF [place] CORONARY ARTERY W/O ANG PCTRS (7) COPD bronchitis Code(s): J44.9 - CHRONIC OBSTRUCTIVE PULMONARY DISEASE, UNSPECIFIED (8) Diabetes Code(s): E11.9 - TYPE 2 DIABETES MELLITUS WITHOUT COMPLICATIONS (9) Hx of CABG Code(s): Z95.1 - PRESENCE OF AORTOCORONARY BYPASS GRAFT (10) Hyperlipidemia Code(s): E78.5 - HYPERLIPIDEMIA, UNSPECIFIED (11) Hypertension Code(s): I10 - ESSENTIAL (PRIMARY) HYPERTENSION (12) Hypothyroidism Code(s): E03.9 - HYPOTHYROIDISM, UNSPECIFIED (13) ICD (implantable cardioverter-defibrillator) in place Code(s): Z95.810 - PRESENCE OF AUTOMATIC (IMPLANTABLE) CARDIAC DEFIBRILLATOR (14) Sleep apnea in adult Code(s): G47.33 - OBSTRUCTIVE SLEEP APNEA (ADULT) (PEDIATRIC)
[2016-11-26] MEDS ORDERED: METOLAZONE 2.5 MG TABLET (FP) PO ONE (14:43)
[2016-11-26] MEDS: ACETAMINOPHEN 325 MG TABLET (FP) PO PRN (21:13)
[2016-11-27] MEDS: HEPARIN NA (PORCINE) 5,000 UNITS/ML 1ML VIAL SQ SCH ×3 (06:09→22:13)
[2016-11-27] MEDS: LEVOTHYROXINE NA 75 MCG TABLET (FP) PO SCH (07:48)
[2016-11-27] MEDS: FUROSEMIDE 40 MG/4 ML INJECTABLE VIAL IVPUSH SCH ×3 (08:01→22:40)
[2016-11-27 08:06] LABS: BASOPHIL 0.4 % (0-2.0); EOSINOPHIL 3.6 % (0-4.5); MCH 26.9 pg (25.7-33.7); MCHC 33.1 g/dl (32.0-36.0); MEAN CELL VOLUME 81.1 fl (80-96); MEAN PLT VOLUME 9.4 fl (7.5-11.1); PLATELET COUNT 236 K/MM3 (134-434); RDW 16.1 % (11.6-15.6); WHITE BLOOD COUNT 7.6 K/mm3 (4.0-10.0)
[2016-11-27 08:28] LABS: ALBUMIN 3.3 g/dl (3.4-5.0); GLUCOSE,RANDOM 93 mg/dL (74-106); SGOT/AST 13 U/L (15-37)
[2016-11-27 08:30] LABS: ALK PHOS 93 U/L (45-117); ANION GAP 7 (8-16); BILIRUBIN,TOTAL 0.5 mg/dL (0.2-1.0); CALCIUM 8.7 mg/dL (8.5-10.1); CO2 34 mmol/L (21-32); CREATININE 1.1 mg/dL (0.55-1.02); MAGNESIUM 2.9 mg/dL (1.8-2.4); SGPT/ALT 15 U/L (12-78); TOT PROT 6.4 g/dl (6.4-8.2)
--- NOTE | 2016-11-27 09:09 | PN ---
Physical Exam: SUBJECTIVE: Patient seen and examined She does not feel any better. She is ambulating short distances but this is limited by dyspnea. Since receiving lasix today she has urinated frequently. OBJECTIVE: Vital Signs Period Temp Pulse Resp BP Sys/Camilo Pulse Ox Last 24 Hr 97.6 F-98.2 F 72-93 20-20 84-116/43-68 99 GEN: Awake, alert CVS: RRR PULM: bibasilar crackles ABD: soft, NT/ND, NABS EXTREM: warm ,well perfused, BLLE edema (unchanged) Laboratory Results - last 24 hr 11/27/16 11/27/16 05:42 05:42 WBC 7.6 RBC 4.00 Hgb 10.7 Hct 32.4 MCV 81.1 MCH 26.9 MCHC 33.1 RDW 16.1 H Plt Count 236 MPV 9.4 Neutrophils % 74.0 Lymphocytes % 10.0 Monocytes % 12.0 H Eosinophils % 3.6 D Basophils % 0.4 Sodium 134 L Potassium 5.2 H Chloride 93 L Carbon Dioxide 34 H Anion Gap 7 L BUN 40 H Creatinine 1.1 H D Creat Clearance w eGFR 47.43 Random Glucose 93 Calcium 8.7 Phosphorus 4.0 Magnesium 2.9 H Total Bilirubin 0.5 D AST 13 L ALT 15 Alkaline Phosphatase 93 Total Protein 6.4 Albumin 3.3 L Active Medications Generic Name Dose Route Start Last Admin Trade Name Freq PRN Reason Stop Dose Admin Acetaminophen 650 mg 11/25/16 14:38 11/26/16 21:13 Tylenol - PO 650 mg Q4H PRN Administration FEVER OR PAIN Aclidinium [place] 1 puff 11/23/16 10:00 11/26/16 22:00 Tudorza - IH 1 puff BID [facility] Administration Aspirin 81 mg 11/23/16 10:00 11/26/16 09:10 Asa - PO 81 mg DAILY [facility] Administration Budesonide/Formoterol Fumarate 1 puff 11/23/16 10:00 11/26/16 22:00 Symbicort 80/4.5mcg - IH 1 puff BID [facility] Administration Clopidogrel Bisulfate 75 mg 11/23/16 10:00 11/26/16 09:10 Plavix - PO 75 mg DAILY [facility] Administration Docusate Sodium 100 mg 11/23/16 10:00 08/19/17 21:10 Colace - PO 100 mg BID [facility] Administration Furosemide 60 mg 11/26/16 06:00 11/27/16 08:01 Lasix Injection - IVPUSH 60 mg BID@0600,1400 [facility] Administration Guaifenesin 10 ml 11/25/16 14:38 11/26/16 21:11 Robitussin - PO 10 ml Q4H PRN Administration COUGH Heparin Sodium (Porcine) 5,000 unit 11/23/16 06:00 11/27/16 06:09 Heparin - SQ 5,000 unit TID [facility] Administration Levothyroxine Sodium 75 mcg 11/23/16 10:30 11/27/16 07:48 Synthroid - PO 75 mcg DAILY@0700 [facility] Administration Lisinopril 2.5 mg 11/23/16 10:00 11/26/16 09:10 Prinivil PO 2.5 mg DAILY [facility] Administration Metoprolol Succinate 25 mg 11/23/16 10:00 11/26/16 21:10 Toprol Xl - PO 25 mg BID [facility] Administration Non-Formulary Medication 40 mg 11/23/16 22:00 Simvastatin PO HS [facility] Spironolactone 25 mg 11/24/16 12:30 11/26/16 09:10 Aldactone - PO 25 mg DAILY [facility] Administration ASSESSMENT/PLAN: The patient is an 81 year old female with a significant past medical history of HTN, HLD, CHF, CAD, AVR, atrial fibrillation, s/p pacer/defibrillator, asthma/ COPD, diaphragmatic dysfunction, now HD#4 for acute exacerbation of chronic systolic CHF. # CVS Chronic HTN, HLP, CHF, CAD, A fib S/p AVR, pacer/defib Acute on Chronic Systolic CHF exacerbation, NYHA class 3 Weight has been uptrending for three days Creatinine and K are trending up She did not get her pm dose of Lasix yesterday due to borderline hypotension She did get this am dose Await renal and cardiology input regarding diuresis Will increase Lasix to 60mg IV TID Continue Aldactone 25 mg daily Will add Zaroxyln 2.5mg daily per renal We will need to watch potassium very closely Continue home Lisinopril, Metoprolol Continue Lipitor Continue ASA/Plavix Strict I & O 's Daily weights #PULMONARY Asthma/COPD Diaphragmatic dysfunction Increasing cough Continue 3L O2 nasal cannula Continue home meds of Symbicort, Tudorza CXR did not show evidence of infectious infiltrates She does not seem to be coughing due to COPD/asthma Cough is likely due to pulmonary edema # ENDOCRINE Hypothyroidism TSH noted Continue Synthroid 75 mcg daily # FEN Na restricted diet Continue diuresis Will watch uptrending creatinine and K closely # PROPHYLAXIS Heparin TID Eating PT consult Visit type - Emergency Visit Emergency Visit: Yes ED Registration Date: 11/23/16 Care time: The patient presented to the Emergency Department on the above date and was hospitalized for further evaluation of their emergent condition. - New Patient This patient is new to me today: No - Critical Care Critical Care patient: No
[2016-11-27] MEDS: METOPROLOL SUCCINATE 25 MG TAB.SR.24H (FP) PO SCH ×2 (10:46→22:13)
[2016-11-27] MEDS: CLOPIDOGREL BISULFATE 75 MG TABLET (FP) PO SCH (10:46)
[2016-11-27] MEDS: ASPIRIN 81 MG CHEWABLE TABLETS PO SCH (10:47)
[2016-11-27] MEDS: ACLIDINIUM BROMIDE 400 MCG/INH AERO.POWD IH SCH ×2 (10:47→22:15)
[2016-11-27] MEDS: BUDESONIDE/FORMETEROL FUMARATE 80/4.5 mcg INHALER IH SCH ×2 (10:47→22:14)
[2016-11-27] MEDS: SPIRONOLACTONE 25 MG TABLET (FP) PO SCH (10:47)
[2016-11-27] MEDS: DOCUSATE SODIUM 100 MG CAPSULE (FP) PO SCH ×2 (10:47→22:13)
--- NOTE | 2016-11-27 12:17 | PN ---
Progress Note (short form) - Note Progress Note: RENAL Pt awake and alert concerned that her edema is not improving her bp dropped yesterday however Last Vital Signs Temp Pulse Resp BP Pulse Ox 97.6 F 72 20 109/46 98 11/27/16 05:48 11/27/16 07:46 11/27/16 07:46 11/27/16 10:57 11/27/16 10:00 lungs crackles bilat cvs s1s2 rr abd soft ext ++edema neuro a+ox3 CBC, BMP 11/27/16 05:42 11/27/16 05:42 Current Medications Generic Name Dose Route Start Last Admin Trade Name Freq PRN Reason Stop Dose Admin Acetaminophen 650 mg 11/25/16 14:38 11/26/16 21:13 Tylenol - PO 650 mg Q4H PRN Administration FEVER OR PAIN Aclidinium [place] 1 puff 11/23/16 10:00 11/27/16 10:47 Tudorza - IH 1 puff BID [facility] Administration Aspirin 81 mg 11/23/16 10:00 11/27/16 10:47 Asa - PO 81 mg DAILY [facility] Administration Budesonide/Formoterol Fumarate 1 puff 11/23/16 10:00 11/27/16 10:47 Symbicort 80/4.5mcg - IH 1 puff BID [facility] Administration Clopidogrel Bisulfate 75 mg 11/23/16 10:00 11/27/16 10:46 Plavix - PO 75 mg DAILY [facility] Administration Docusate Sodium 100 mg 11/23/16 10:00 11/27/16 10:47 Colace - PO 100 mg BID [facility] Administration Furosemide 60 mg 11/27/16 14:00 Lasix Injection - IVPUSH TID [facility] Guaifenesin 10 ml 11/25/16 14:38 11/26/16 21:11 Robitussin - PO 10 ml Q4H PRN Administration COUGH Heparin Sodium (Porcine) 5,000 unit 11/23/16 06:00 11/27/16 06:09 Heparin - SQ 5,000 unit TID [facility] Administration Levothyroxine Sodium 75 mcg 11/23/16 10:30 11/27/16 07:48 Synthroid - PO 75 mcg DAILY@0700 [facility] Administration Lisinopril 2.5 mg 11/23/16 10:00 11/26/16 09:10 Prinivil PO 2.5 mg DAILY [facility] Administration Metolazone 2.5 mg 11/27/16 13:30 Zaroxolyn - PO DAILY@1330 [facility] Metoprolol Succinate 25 mg 11/23/16 10:00 11/27/16 10:46 Toprol Xl - PO 25 mg BID [facility] Administration Non-Formulary Medication 40 mg 11/23/16 22:00 Simvastatin PO HS [facility] Spironolactone 25 mg 11/24/16 12:30 11/27/16 10:47 Aldactone - PO 25 mg DAILY [facility] Administration IMPRESSION 1. dyspnea 2. CHF exacerbation 3. paralyzed hemidiaphragm 4. HTN 5. valvular heart disease 6. azotemia 7. hypothyroid 8. CAD 9. hyponatremia Plan hold spironolactone and metolazone I suggested compression stockings continue lasix and lisinopril low k diet [facility]
[2016-11-27] MEDS ORDERED: METOLAZONE 2.5 MG TABLET (FP) PO SCH (13:30)
[2016-11-27] MEDS: LISINOPRIL 5 MG TABLET (FP) PO SCH (16:42)
[2016-11-27] MEDS: guaiFENesin 200 MG/10 ML 10 ML UNIT-DOSE CUPS PO PRN (22:41)
[2016-11-28] MEDS: METOPROLOL SUCCINATE 25 MG TAB.SR.24H (FP) PO SCH ×3 (02:33→22:33)
[2016-11-28] MEDS: HEPARIN NA (PORCINE) 5,000 UNITS/ML 1ML VIAL SQ SCH ×3 (06:02→21:32)
[2016-11-28] MEDS: FUROSEMIDE 40 MG/4 ML INJECTABLE VIAL IVPUSH SCH ×3 (06:02→23:00)
[2016-11-28] MEDS: LEVOTHYROXINE NA 75 MCG TABLET (FP) PO SCH (06:03)
[2016-11-28 07:57] LABS: BASOPHIL 0.2 % (0-2.0); MCHC 33.3 g/dl (32.0-36.0); MEAN CELL VOLUME 81.2 fl (80-96); MEAN PLT VOLUME 9.6 fl (7.5-11.1); NEUTROPHILS 80.3 % (42.8-82.8); PLATELET COUNT 258 K/MM3 (134-434); RDW 16.2 % (11.6-15.6); WHITE BLOOD COUNT 10.1 K/mm3 (4.0-10.0)
[2016-11-28 09:05] LABS: ALBUMIN 3.4 g/dl (3.4-5.0); ALK PHOS 89 U/L (45-117); ANION GAP 9 (8-16); BILIRUBIN,TOTAL 0.6 mg/dL (0.2-1.0); CALCIUM 8.7 mg/dL (8.5-10.1); CO2 33 mmol/L (21-32); CREATININE 0.9 mg/dL (0.55-1.02); GLUCOSE,RANDOM 91 mg/dL (74-106); MAGNESIUM 2.6 mg/dL (1.8-2.4); PHOSPHOROUS 3.7 mg/dL (2.5-4.9); SGOT/AST 9 U/L (15-37); SGPT/ALT 16 U/L (12-78); TOT PROT 6.5 g/dl (6.4-8.2)
[2016-11-28] MEDS ORDERED: PT OWN MED DRAWER 7, Y5N ONE (09:10)
[2016-11-28] MEDS: DOCUSATE SODIUM 100 MG CAPSULE (FP) PO SCH ×2 (09:18→21:32)
[2016-11-28] MEDS: CLOPIDOGREL BISULFATE 75 MG TABLET (FP) PO SCH (09:18)
[2016-11-28] MEDS: ASPIRIN 81 MG CHEWABLE TABLETS PO SCH (09:19)
[2016-11-28] MEDS: ACLIDINIUM BROMIDE 400 MCG/INH AERO.POWD IH SCH ×2 (09:21→21:32)
[2016-11-28] MEDS: BUDESONIDE/FORMETEROL FUMARATE 80/4.5 mcg INHALER IH SCH ×2 (09:21→21:32)
[2016-11-28] MEDS: LISINOPRIL 5 MG TABLET (FP) PO SCH (09:21)
--- NOTE | 2016-11-28 11:50 | MSN ---
Progress Note (SOAP) - Subjective Chief Complaint: Shortness of breath, leg swelling History of Present Illness: Pt's shortness of breath is improving today, able to walk down the levi on oxygen with less discomfort. Able to sleep at 45 degree angle which was not possible previously due to orthopnea. Cough has almost resolved, lower extremities appear less swollen today, R side still greater than L. No chest pain, dizziness, lightheadedness, confusion, abd pain, or any other complaints. - Current Medications Current Medications: Active Medications Acetaminophen (Tylenol -) 650 mg PO Q4H PRN PRN Reason: FEVER OR PAIN Last Admin: 11/26/16 21:13 Dose: 650 mg Aclidinium [place] (Tudorza -) 1 puff IH BID [facility] Last Admin: 11/28/16 09:21 Dose: 1 puff Aspirin (Asa -) 81 mg PO DAILY [facility] Last Admin: 11/28/16 09:19 Dose: 81 mg Budesonide/Formoterol Fumarate (Symbicort 80/4.5mcg -) 1 puff IH BID [facility] Last Admin: 11/28/16 09:21 Dose: 1 puff Clopidogrel Bisulfate (Plavix -) 75 mg PO DAILY [facility] Last Admin: 11/28/16 09:18 Dose: 75 mg Docusate Sodium (Colace -) 100 mg PO BID [facility] Last Admin: 11/28/16 09:18 Dose: 100 mg Furosemide (Lasix Injection -) 60 mg IVPUSH TID [facility] Last Admin: 11/28/16 06:02 Dose: 60 mg Guaifenesin (Robitussin -) 10 ml PO Q4H PRN PRN Reason: COUGH Last Admin: 11/27/16 22:41 Dose: 10 ml Heparin Sodium (Porcine) (Heparin -) 5,000 unit SQ TID [facility] Last Admin: 11/28/16 06:02 Dose: 5,000 unit Levothyroxine Sodium (Synthroid -) 75 mcg PO DAILY@0700 [facility] Last Admin: 11/28/16 06:03 Dose: 75 mcg Lisinopril (Prinivil) 2.5 mg PO DAILY [facility] Last Admin: 11/28/16 09:21 Dose: Not Given Metoprolol Succinate (Toprol Xl -) 25 mg PO BID [facility] Last Admin: 11/28/16 09:18 Dose: 25 mg Non-Formulary Medication (Simvastatin) 40 mg PO HS [facility] - Objective Vital Signs: Vital Signs Temperature 98 F 11/28/16 09:00 Pulse Rate 88 11/28/16 09:00 Respiratory Rate 20 11/28/16 09:00 Blood Pressure 95/56 11/28/16 09:00 O2 Sat by Pulse Oximetry (%) 98 11/27/16 21:00 Constitutional: Yes: Well Nourished, No Distress, Calm Eyes: Yes: WNL HENT: Yes: WNL, Atraumatic, Normocephalic Neck: Yes: WNL, Supple, Trachea Midline Cardiovascular: Yes: WNL, Regular Rate and Rhythm Respiratory: Yes: Cough, Diminished, On Nasal O2, Rales Gastrointestinal: Yes: WNL, Normal Bowel Sounds, Soft ...Rectal Exam: Yes: Deferred Peripheral Pulses: Left Radial: 2+, Right Radial: 2+, Left Doralis Pedis: 2+, Right Dorsalis Pedis: 2+ Edema: LUE: 2+, RUE: 3+ Integumentary: Yes: WNL Neurological: Yes: WNL, Alert, Oriented ...Motor Strength: Yes: WNL Psychiatric: Yes: WNL, Alert, Oriented Labs Lab Results: CBC, BMP 11/28/16 05:48 11/28/16 05:48 Imaging - Results Chest X-ray: Report Reviewed, Image Reviewed Assessment/Plan #Acute on Chronic systolic heart failure, NYHA class 4 - Continue IV lasix 60mg TID. Trend creatinine, slim to 1.1 today. - Last echo 11/07, EF of 30% - Weight 170 down from 171, normal 160. Trend weights. - Fluid restriction, strict I&O's. - Holding Aldactone due to hyperkalemia. Continue lisinopril. - Per renal's recommendation, holding metolazone due to hypotension. Pt is hypotensive at baseline, BP has improved in past day to 103/50, will restart metolazone if renal agrees. - Pt's exercise capacity improving, continue PT assessment. Desaturated to 91% while using walker on 3L. - CXR negative for pleural effusions, does show cardiomegaly and congestive changes. #COPD - Continue 3L O2 nasal cannula. Exercise tolerance improving. - Continue home meds of symbicort, tiotropium. - CXR 11/26 unchanged from 11/22. #Hypotension - Hold metolazone #Hyperkalemia - 4.5 today, continue to monitor. Continuing lisinopril, holding Aldactone. #HLP - Continue Lipitor #CAD - S/p AVR, pacer/defib, Hx of CABG x3, continue ASA + Plavix #Hypothyroidism - Continue Synthroid 75mcg daily - TSH noted #DVT Prophylaxis - Heparin TID
--- NOTE | 2016-11-28 12:52 | PN ---
Teaching Attending Note Name of Resident: Lance Walters ATTENDING PHYSICIAN STATEMENT I saw and evaluated the patient. I reviewed the resident's note and discussed the case with the resident. I agree with the resident's findings and plan as documented. SUBJECTIVE: Patient feels less SOB. OBJECTIVE: Vital Signs Period Temp Pulse Resp BP Sys/Camilo Pulse Ox Last 24 Hr 97.6 F-98.4 F 66-90 20-20 91-109/42-56 97-98 HEART: S1S2, RRR LUNGS: Bilateral rales ABDOMEN: Obese, soft, non-tender, non-distended, normal BS EXTREMITIES: 2+ edema Current Medications Generic Name Dose Route Start Last Admin Trade Name Freq PRN Reason Stop Dose Admin Acetaminophen 650 mg 11/25/16 14:38 11/26/16 21:13 Tylenol - PO 650 mg Q4H PRN Administration FEVER OR PAIN Aclidinium [place] 1 puff 11/23/16 10:00 11/28/16 09:21 Tudorza - IH 1 puff BID [facility] Administration Aspirin 81 mg 11/23/16 10:00 11/28/16 09:19 Asa - PO 81 mg DAILY [facility] Administration Budesonide/Formoterol Fumarate 1 puff 11/23/16 10:00 11/28/16 09:21 Symbicort 80/4.5mcg - IH 1 puff BID [facility] Administration Clopidogrel Bisulfate 75 mg 11/23/16 10:00 11/28/16 09:18 Plavix - PO 75 mg DAILY [facility] Administration Docusate Sodium 100 mg 11/23/16 10:00 11/28/16 09:18 Colace - PO 100 mg BID [facility] Administration Furosemide 60 mg 11/27/16 14:00 11/28/16 14:37 Lasix Injection - IVPUSH 60 mg TID [facility] Administration Guaifenesin 10 ml 11/25/16 14:38 11/27/16 22:41 Robitussin - PO 10 ml Q4H PRN Administration COUGH Heparin Sodium (Porcine) 5,000 unit 11/23/16 06:00 11/28/16 14:36 Heparin - SQ Not Given TID [facility] Levothyroxine Sodium 75 mcg 11/23/16 10:30 11/28/16 06:03 Synthroid - PO 75 mcg DAILY@0700 [facility] Administration Lisinopril 2.5 mg 11/23/16 10:00 11/28/16 09:21 Prinivil PO Not Given [facility]ILY [facility] Metoprolol Succinate 25 mg 11/23/16 10:00 11/28/16 09:18 Toprol Xl - PO 25 mg BID [facility] Administration ASSESSMENT AND PLAN: This is an 81-year-old woman with a history of CAD, CABG, CHF, COPD, HTN, AVR, AICD, anxiety who presented to the ER with worsening shortness of breath and leg edema. 1. Acute on chronic systolic heart failure - Lasix increased and weight down 0.5 kg since yesterday - Continue Lisinopril, fluid restriction - Zaroxolyn held secondary to hypotension, increasing BUN/creatinine - Aldactone held secondary to hyperkalemia - Has AICD 2. Hyperkalemia - Improved 3. Hyponatremia - Secondary to fluid overload - Improving with diuresis, fluid restriction 4. CAD, history of CABG - Continue aspirin, Plavix, Toprol XL 5. Chronic hypoxic respiratory failure secondary to COPD - Continue Symbicort, Tudor[place], oxygen 6. Hyperlipidemia - Continue Zocor 7. Hypothyroidism - Continue Synthroid 8. Hypertension - Continue Toprol XL, Lisinopril, Lasix 9. History of bioprosthetic AV replacement 10. Anxiety disorder 11. History of NSVT - Has AICD
--- NOTE | 2016-11-28 13:10 | PN ---
Physical Exam: SUBJECTIVE: Patient seen and examined No acute events overnight. Patient feels a little better this morning. OBJECTIVE: Vital Signs Period Temp Pulse Resp BP Sys/Camilo Pulse Ox Last 24 Hr 97.6 F-98.4 F 66-90 20-20 91-109/42-56 97-98 GENERAL: Awake, alert, and fully oriented, in no acute distress on 3L O2 via nasal cannula. HEAD: Normal with no signs of trauma. EYES: Pupils equal, round and reactive to light, extraocular movements intact, sclera anicteric, conjunctiva clear. No lid lag. EARS, NOSE, THROAT: Oropharynx clear without exudates. Moist mucous membranes. NECK: Supple without lymphadenopathy, or masses. LUNGS: Crackles bilateral bases. No accessory muscle use. HEART: Regular rate and rhythm, normal S1 and S2 without murmur, rub or gallop. ABDOMEN: Soft, nontender, not distended, normoactive bowel sounds, no guarding, no rebound, no masses. LOWER EXTREMITIES: 2-3+ pitting edema jayden. No calf tenderness. NEUROLOGICAL: Normal speech. PSYCHIATRIC: Cooperative. Good eye contact. Appropriate mood and affect. SKIN: Cold, dry, normal turgor, no rashes or lesions noted, normal capillary refill. Laboratory Results - last 24 hr 11/28/16 11/28/16 05:48 05:48 WBC 10.1 H D RBC 3.87 Hgb 10.5 L Hct 31.5 L MCV 81.2 MCH 27.0 MCHC 33.3 RDW 16.2 H Plt Count 258 MPV 9.6 Neutrophils % 80.3 Lymphocytes % 7.2 L D Monocytes % 10.3 H Eosinophils % 2.0 Basophils % 0.2 Sodium 135 L Potassium 4.5 Chloride 93 L Carbon Dioxide 33 H Anion Gap 9 BUN 38 H Creatinine 0.9 Creat Clearance w eGFR 59.80 Random Glucose 91 Calcium 8.7 Phosphorus 3.7 Magnesium 2.6 H Total Bilirubin 0.6 AST 9 L D ALT 16 Alkaline Phosphatase 89 Total Protein 6.5 Albumin 3.4 Active Medications Generic Name Dose Route Start Last Admin Trade Name Freq PRN Reason Stop Dose Admin Acetaminophen 650 mg 11/25/16 14:38 11/26/16 21:13 Tylenol - PO 650 mg Q4H PRN Administration FEVER OR PAIN Aclidinium [place] 1 puff 11/23/16 10:00 11/28/16 09:21 Tudorza - IH 1 puff BID [facility] Administration Aspirin 81 mg 11/23/16 10:00 11/28/16 09:19 Asa - PO 81 mg DAILY [facility] Administration Budesonide/Formoterol Fumarate 1 puff 11/23/16 10:00 11/28/16 09:21 Symbicort 80/4.5mcg - IH 1 puff BID [facility] Administration Clopidogrel Bisulfate 75 mg 11/23/16 10:00 11/28/16 09:18 Plavix - PO 75 mg DAILY [facility] Administration Docusate Sodium 100 mg 11/23/16 10:00 11/28/16 09:18 Colace - PO 100 mg BID [facility] Administration Furosemide 60 mg 11/27/16 14:00 11/28/16 06:02 Lasix Injection - IVPUSH 60 mg TID [facility] Administration Guaifenesin 10 ml 11/25/16 14:38 11/27/16 22:41 Robitussin - PO 10 ml Q4H PRN Administration COUGH Heparin Sodium (Porcine) 5,000 unit 11/23/16 06:00 11/28/16 06:02 Heparin - SQ 5,000 unit TID [facility] Administration Levothyroxine Sodium 75 mcg 11/23/16 10:30 11/28/16 06:03 Synthroid - PO 75 mcg DAILY@0700 [facility] Administration Lisinopril 2.5 mg 11/23/16 10:00 11/28/16 09:21 Prinivil PO Not Given DAILY [facility] Metoprolol Succinate 25 mg 11/23/16 10:00 11/28/16 09:18 Toprol Xl - PO 25 mg BID [facility] Administration Non-Formulary Medication 40 mg 11/23/16 22:00 Simvastatin PO HS [facility] ASSESSMENT/PLAN: 81yo F with PMH of CHF, asthma/COPD, afib, s/p CABG, 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 # Acute on Chronic Systolic CHF exacerbation, NYHA class 3 - 2nd troponin increased, 3rd stayed the same, 4th downtrending - BNP 11,915 - Continue Lasix 60mg IV TID - Hold aldactone - cont. home meds of Lisinopril, Metoprolol - cont. guaifenesin 10 ml po q4 prn - Holding metalazone due to hypotension. Patient is at baseline BP - Cardiology Consult, Dr. Ingram - PCP Consult, Dr. Bella - I & O 's - daily wts - Patient may be a candidate for entresto - Fluid restriction - daily PT #Hyperkalemia, resolved -will continue to monitor #CAD s/p cabg -2nd troponin increased, 3rd stayed the same, 4th downtrending -No sign of acs -Continue aspirin 81 mg -Continue plavix 75 mg #HTN -Controlled -Will monitor and continue home meds (toporol xl 25 mg po bid, lisinopril 2.5 mg po daily, lasix 60 mg iv tid) # asthma/COPD - cont. 3L O2 nasal cannula - cont. home meds of Symbicort, Spiriva # hypothyroidism - cont. home med of Synthroid 75 mcg po daily # HLD - cont. home med of Zocor # FEN - Fluids: no IVFs indicated - Electrolytes: wnl - Nutrition: sodium restricted diet # Prophylaxis - Heparin 5000U SQ TID for DVT prophylaxis Visit type - Emergency Visit Emergency Visit: Yes ED Registration Date: 11/23/16 Care time: The patient presented to the Emergency Department on the above date and was hospitalized for further evaluation of their emergent condition. - New Patient This patient is new to me today: No - Critical Care Critical Care patient: No
--- NOTE | 2016-11-28 14:28 | PN ---
Progress Note, Physician History of Present Illness: Pt seen and examined at bedside. She is awake and alert. She feels that her breathing is a little better. She still has lower extremity edema. - Current Medication List Current Medications: Active Medications Acetaminophen (Tylenol -) 650 mg PO Q4H PRN PRN Reason: FEVER OR PAIN Last Admin: 11/26/16 21:13 Dose: 650 mg Aclidinium [place] (Tudorza -) 1 puff IH BID [facility] Last Admin: 11/28/16 09:21 Dose: 1 puff Aspirin (Asa -) 81 mg PO DAILY [facility] Last Admin: 11/28/16 09:19 Dose: 81 mg Budesonide/Formoterol Fumarate (Symbicort 80/4.5mcg -) 1 puff IH BID [facility] Last Admin: 11/28/16 09:21 Dose: 1 puff Clopidogrel Bisulfate (Plavix -) 75 mg PO DAILY [facility] Last Admin: 11/28/16 09:18 Dose: 75 mg Docusate Sodium (Colace -) 100 mg PO BID [facility] Last Admin: 11/28/16 09:18 Dose: 100 mg Furosemide (Lasix Injection -) 60 mg IVPUSH TID [facility] Last Admin: 11/28/16 06:02 Dose: 60 mg Guaifenesin (Robitussin -) 10 ml PO Q4H PRN PRN Reason: COUGH Last Admin: 11/27/16 22:41 Dose: 10 ml Heparin Sodium (Porcine) (Heparin -) 5,000 unit SQ TID [facility] Last Admin: 11/28/16 06:02 Dose: 5,000 unit Levothyroxine Sodium (Synthroid -) 75 mcg PO DAILY@0700 [facility] Last Admin: 11/28/16 06:03 Dose: 75 mcg Lisinopril (Prinivil) 2.5 mg PO DAILY [facility] Last Admin: 11/28/16 09:21 Dose: Not Given Metoprolol Succinate (Toprol Xl -) 25 mg PO BID [facility] Last Admin: 11/28/16 09:18 Dose: 25 mg - Objective Vital Signs: Vital Signs Temperature 98 F 11/28/16 09:00 Pulse Rate 88 11/28/16 09:00 Respiratory Rate 20 11/28/16 09:00 Blood Pressure 95/56 11/28/16 09:00 O2 Sat by Pulse Oximetry (%) 97 11/28/16 09:00 Constitutional: Yes: Calm Eyes: Yes: Conjunctiva Clear HENT: Yes: Atraumatic Neck: Yes: Supple Cardiovascular: Yes: S1, S2 Respiratory: Yes: On Nasal O2 Gastrointestinal: Yes: Soft Genitourinary: Yes: WNL Musculoskeletal: Yes: WNL Edema: Yes Edema: LLE: 1+, RLE: 1+ Neurological: Yes: Oriented Psychiatric: Yes: Oriented Labs: CBC, BMP 11/28/16 05:48 11/28/16 05:48 INR, PTT INR 1.09 (0.82-1.09) 11/22/16 21:29 Problem List - Problems (1) Acute on chronic systolic CHF (congestive heart failure) Code(s): I50.23 - ACUTE ON CHRONIC SYSTOLIC (CONGESTIVE) HEART FAILURE Assessment/Plan Current Medications Generic Name Dose Route Start Last Admin Trade Name Freq PRN Reason Stop Dose Admin Acetaminophen 650 mg 11/25/16 14:38 11/26/16 21:13 Tylenol - PO 650 mg Q4H PRN Administration FEVER OR PAIN Aclidinium [place] 1 puff 11/23/16 10:00 11/28/16 09:21 [place]orza - IH 1 puff BID [facility] Administration Aspirin 81 mg 11/23/16 10:00 11/28/16 09:19 Asa - PO 81 mg DAILY [facility] Administration Budesonide/Formoterol Fumarate 1 puff 11/23/16 10:00 11/28/16 09:21 Symbicort 80/4.5mcg - IH 1 puff BID [facility] Administration Clopidogrel Bisulfate 75 mg 11/23/16 10:00 11/28/16 09:18 Plavix - PO 75 mg DAILY [facility] Administration Docusate Sodium 100 mg 11/23/16 10:00 11/28/16 09:18 Colace - PO 100 mg BID [facility] Administration Furosemide 60 mg 11/27/16 14:00 11/28/16 06:02 Lasix Injection - IVPUSH 60 mg TID [facility] Administration Guaifenesin 10 ml 11/25/16 14:38 11/27/16 22:41 Robitussin - PO 10 ml Q4H PRN Administration COUGH Heparin Sodium (Porcine) 5,000 unit 11/23/16 06:00 11/28/16 06:02 Heparin - SQ 5,000 unit TID [facility] Administration Levothyroxine Sodium 75 mcg 11/23/16 10:30 11/28/16 06:03 Synthroid - PO 75 mcg DAILY@0700 [facility] Administration Lisinopril 2.5 mg 11/23/16 10:00 11/28/16 09:21 Prinivil PO Not Given DAILY [facility] Metoprolol Succinate 25 mg 11/23/16 10:00 11/28/16 09:18 Toprol Xl - PO 25 mg BID [facility] Administration 1. dyspnea 2. CHF exacerbation 3. paralyzed hemidiaphragm 4. HTN 5. valvular heart disease 6. azotemia 7. hypothyroid 8. CAD 9. hyponatremia Plan - cont lasix - daily weights - spironolactone on hold secondary to hyperkalemia - fluid restrict - monitor blood pressure - will follow Dr Bella
--- NOTE | 2016-11-28 19:19 | PN ---
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 No change from baseline in difficulty breathing at this time by complains of orthopnea and unintentional weight gain of 8lbs since her last discharge despite 80mg Lasix daily. - Current Medication List Current Medications: Active Medications Acetaminophen (Tylenol -) 650 mg PO Q4H PRN PRN Reason: FEVER OR PAIN Last Admin: 11/26/16 21:13 Dose: 650 mg Aclidinium [place] (Tudorza -) 1 puff IH BID [facility] Last Admin: 11/28/16 09:21 Dose: 1 puff Aspirin (Asa -) 81 mg PO DAILY [facility] Last Admin: 11/28/16 09:19 Dose: 81 mg Budesonide/Formoterol Fumarate (Symbicort 80/4.5mcg -) 1 puff IH BID [facility] Last Admin: 11/28/16 09:21 Dose: 1 puff Clopidogrel Bisulfate (Plavix -) 75 mg PO DAILY [facility] Last Admin: 11/28/16 09:18 Dose: 75 mg Docusate Sodium (Colace -) 100 mg PO BID [facility] Last Admin: 11/28/16 09:18 Dose: 100 mg Furosemide (Lasix Injection -) 60 mg IVPUSH TID [facility] Last Admin: 11/28/16 14:37 Dose: 60 mg Guaifenesin (Robitussin -) 10 ml PO Q4H PRN PRN Reason: COUGH Last Admin: 11/27/16 22:41 Dose: 10 ml Heparin Sodium (Porcine) (Heparin -) 5,000 unit SQ TID [facility] Last Admin: 11/28/16 14:36 Dose: Not Given Levothyroxine Sodium (Synthroid -) 75 mcg PO DAILY@0700 [facility] Last Admin: 11/28/16 06:03 Dose: 75 mcg Lisinopril (Prinivil) 2.5 mg PO DAILY [facility] Last Admin: 11/28/16 09:21 Dose: Not Given Metoprolol Succinate (Toprol Xl -) 25 mg PO BID [facility] Last Admin: 11/28/16 09:18 Dose: 25 mg - Objective Vital Signs: Vital Signs Temperature 97.6 F 11/28/16 18:00 Pulse Rate 91 H 11/28/16 18:00 Respiratory Rate 19 11/28/16 18:00 Blood Pressure 120/63 11/28/16 18:00 O2 Sat by Pulse Oximetry (%) 97 11/28/16 09:00 Eyes: Yes: WNL, Conjunctiva Clear, EOM Intact HENT: Yes: WNL, Atraumatic, Normocephalic Neck: Yes: WNL, Supple, Trachea Midline Cardiovascular: Yes: WNL, Regular Rate and Rhythm Respiratory: Yes: Diminished Gastrointestinal: Yes: WNL, Normal Bowel Sounds Genitourinary: Yes: WNL Musculoskeletal: Yes: WNL Extremities: Yes: WNL Edema: Yes Integumentary: Yes: WNL Neurological: Yes: WNL, Alert, Oriented ...Motor Strength: WNL Psychiatric: Yes: WNL Labs: CBC, BMP 11/28/16 05:48 11/28/16 05:48 INR, PTT INR 1.09 (0.82-1.09) 11/22/16 21:29 Assessment/Plan - Problems (1) Nonsustained ventricular tachycardia Assessment/Plan: Increase metoprolol ER as tolerated (BP; symptoms). Code(s): I47.2 - VENTRICULAR TACHYCARDIA (2) Shortness of breath Code(s): R06.02 - SHORTNESS OF BREATH (3) Systolic and diastolic CHF w/reduced LV function, NYHA class 4 Assessment/Plan: On beta blockers and lisinopril. Aldcactone was started. On furosemide; f/u Is and Os, daily weight. Code(s): I50.40 - UNSP COMBINED SYSTOLIC AND DIASTOLIC (CONGESTIVE) HRT FAIL (4) Anxiety 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 Code(s): F41.0 - PANIC DISORDER WITHOUT AGORAPHOBIA (5) Aortic valve replaced Code(s): Z95.2 - PRESENCE OF PROSTHETIC HEART VALVE (6) CAD (coronary artery disease) Code(s): I25.10 - ATHSCL HEART DISEASE OF [place] CORONARY ARTERY W/O ANG PCTRS (7) COPD bronchitis Code(s): J44.9 - CHRONIC OBSTRUCTIVE PULMONARY DISEASE, UNSPECIFIED (8) Diabetes Code(s): E11.9 - TYPE 2 DIABETES MELLITUS WITHOUT COMPLICATIONS (9) Hx of CABG Code(s): Z95.1 - PRESENCE OF AORTOCORONARY BYPASS GRAFT (10) Hyperlipidemia Code(s): E78.5 - HYPERLIPIDEMIA, UNSPECIFIED (11) Hypertension Code(s): I10 - ESSENTIAL (PRIMARY) HYPERTENSION (12) Hypothyroidism Code(s): E03.9 - HYPOTHYROIDISM, UNSPECIFIED (13) ICD (implantable cardioverter-defibrillator) in place Code(s): Z95.810 - PRESENCE OF AUTOMATIC (IMPLANTABLE) CARDIAC DEFIBRILLATOR (14) Sleep apnea in adult Code(s): G47.33 - OBSTRUCTIVE SLEEP APNEA (ADULT) (PEDIATRIC)
[2016-11-28] MEDS: ACETAMINOPHEN 325 MG TABLET (FP) PO PRN (21:33)
[2016-11-28] MEDS: guaiFENesin 200 MG/10 ML 10 ML UNIT-DOSE CUPS PO PRN (21:44)
[2016-11-28] MEDS ORDERED: FUROSEMIDE 100 MG/10 ML INJECTABLE VIAL ONE (22:53)
[2016-11-29] MEDS: HEPARIN NA (PORCINE) 5,000 UNITS/ML 1ML VIAL SQ SCH ×3 (06:21→21:31)
[2016-11-29] MEDS: LEVOTHYROXINE NA 75 MCG TABLET (FP) PO SCH (06:21)
[2016-11-29] MEDS: FUROSEMIDE 40 MG/4 ML INJECTABLE VIAL IVPUSH SCH ×3 (06:25→21:34)
[2016-11-29 07:19] LABS: BASOPHIL 0.4 % (0-2.0); EOSINOPHIL 2.3 % (0-4.5); MCH 26.6 pg (25.7-33.7); MCHC 32.6 g/dl (32.0-36.0); MEAN CELL VOLUME 81.6 fl (80-96); MEAN PLT VOLUME 9.1 fl (7.5-11.1); NEUTROPHILS 73.1 % (42.8-82.8); PLATELET COUNT 248 K/MM3 (134-434); RDW 15.9 % (11.6-15.6); WHITE BLOOD COUNT 8.5 K/mm3 (4.0-10.0)
[2016-11-29 07:28] LABS: ALBUMIN 3.5 g/dl (3.4-5.0); ANION GAP 9 (8-16); CALCIUM 8.7 mg/dL (8.5-10.1); CO2 33 mmol/L (21-32); CREATININE 0.8 mg/dL (0.55-1.02); GLUCOSE,RANDOM 87 mg/dL (74-106); MAGNESIUM 2.6 mg/dL (1.8-2.4); PHOSPHOROUS 4.2 mg/dL (2.5-4.9); SGOT/AST 10 U/L (15-37); SGPT/ALT 15 U/L (12-78)
[2016-11-29 07:30] LABS: ALK PHOS 94 U/L (45-117); BILIRUBIN,TOTAL 0.5 mg/dL (0.2-1.0); TOT PROT 6.8 g/dl (6.4-8.2)
[2016-11-29] MEDS: LISINOPRIL 5 MG TABLET (FP) PO SCH (09:44)
[2016-11-29] MEDS: ASPIRIN 81 MG CHEWABLE TABLETS PO SCH (09:44)
[2016-11-29] MEDS: DOCUSATE SODIUM 100 MG CAPSULE (FP) PO SCH ×2 (09:44→21:31)
[2016-11-29] MEDS: METOPROLOL SUCCINATE 25 MG TAB.SR.24H (FP) PO SCH ×2 (09:44→21:33)
[2016-11-29] MEDS: CLOPIDOGREL BISULFATE 75 MG TABLET (FP) PO SCH (09:44)
[2016-11-29] MEDS: BUDESONIDE/FORMETEROL FUMARATE 80/4.5 mcg INHALER IH SCH ×2 (09:46→21:33)
[2016-11-29] MEDS: ACLIDINIUM BROMIDE 400 MCG/INH AERO.POWD IH SCH (09:46)
--- NOTE | 2016-11-29 10:36 | PN ---
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 No change from baseline in difficulty breathing at this time by complains of orthopnea and unintentional weight gain of 8lbs since her last discharge despite 80mg Lasix daily. - Current Medication List Current Medications: Active Medications Acetaminophen (Tylenol -) 650 mg PO Q4H PRN PRN Reason: FEVER OR PAIN Last Admin: 11/28/16 21:33 Dose: 650 mg Aclidinium [place] (Tudorza -) 1 puff IH BID [facility] [place] Last Admin: 11/29/16 09:46 Dose: 1 puff Aspirin (Asa -) 81 mg PO DAILY [facility] [place] Last Admin: 11/29/16 09:44 Dose: 81 mg Budesonide/Formoterol Fumarate (Symbicort 80/4.5mcg -) 1 puff IH BID [facility] [place] Last Admin: 11/29/16 09:46 Dose: 1 puff Clopidogrel Bisulfate (Plavix -) 75 mg PO DAILY [facility] [place] Last Admin: 11/29/16 09:44 Dose: 75 mg Docusate Sodium (Colace -) 100 mg PO BID [facility] [place] Last Admin: 11/29/16 09:44 Dose: 100 mg Furosemide (Lasix Injection -) 60 mg IVPUSH TID [facility] [place] Last Admin: 11/29/16 06:25 Dose: 60 mg Guaifenesin (Robitussin -) 10 ml PO Q4H PRN PRN Reason: COUGH Last Admin: 11/28/16 21:44 Dose: 10 ml Heparin Sodium (Porcine) (Heparin -) 5,000 unit SQ TID [facility] [place] Last Admin: 11/29/16 06:21 Dose: 5,000 unit Levothyroxine Sodium (Synthroid -) 75 mcg PO DAILY@0700 [facility] [place] Last Admin: 11/29/16 06:21 Dose: 75 mcg Lisinopril (Prinivil) 2.5 mg PO DAILY [facility] [place] Last Admin: 11/29/16 09:44 Dose: Not Given Metoprolol Succinate (Toprol Xl -) 25 mg PO BID [facility] [place] Last Admin: 11/29/16 09:44 Dose: 25 mg - Objective Vital Signs: Vital Signs Temperature 98.0 F 11/29/16 06:00 Pulse Rate 88 11/29/16 06:00 Respiratory Rate 19 11/29/16 06:00 Blood Pressure 100/50 11/29/16 06:00 O2 Sat by Pulse Oximetry (%) 99 11/28/16 21:00 Eyes: Yes: WNL, Conjunctiva Clear, EOM Intact HENT: Yes: WNL, Atraumatic, Normocephalic Neck: Yes: WNL, Supple, Trachea Midline Cardiovascular: Yes: WNL, Regular Rate and Rhythm Respiratory: Yes: WNL, Regular, CTA Bilaterally Gastrointestinal: Yes: WNL, Normal Bowel Sounds Genitourinary: Yes: WNL Musculoskeletal: Yes: WNL Extremities: Yes: WNL Edema: Yes Integumentary: Yes: WNL Neurological: Yes: WNL, Alert, Oriented ...Motor Strength: WNL Psychiatric: Yes: WNL Labs: CBC, BMP 11/29/16 05:35 11/29/16 05:35 INR, PTT INR 1.09 (0.82-1.09) 11/22/16 21:29 Assessment/Plan - Problems (1) Nonsustained ventricular tachycardia Assessment/Plan: Increase metoprolol ER as tolerated (BP; symptoms). Code(s): I47.2 - VENTRICULAR TACHYCARDIA (2) Shortness of breath Code(s): R06.02 - SHORTNESS OF BREATH (3) Systolic and diastolic CHF w/reduced LV function, NYHA class 4 Assessment/Plan: On beta blockers and lisinopril. Aldcactone was started. On furosemide; f/u Is and Os, daily weight. Code(s): I50.40 - UNSP COMBINED SYSTOLIC AND DIASTOLIC (CONGESTIVE) HRT FAIL (4) Anxiety 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 Code(s): F41.0 - PANIC DISORDER WITHOUT AGORAPHOBIA (5) Aortic valve replaced Code(s): Z95.2 - PRESENCE OF PROSTHETIC HEART VALVE (6) CAD (coronary artery disease) Code(s): I25.10 - ATHSCL HEART DISEASE OF [place] CORONARY ARTERY W/O ANG PCTRS (7) COPD bronchitis Code(s): J44.9 - CHRONIC OBSTRUCTIVE PULMONARY DISEASE, UNSPECIFIED (8) Diabetes Code(s): E11.9 - TYPE 2 DIABETES MELLITUS WITHOUT COMPLICATIONS (9) Hx of CABG Code(s): Z95.1 - PRESENCE OF AORTOCORONARY BYPASS GRAFT (10) Hyperlipidemia Code(s): E78.5 - HYPERLIPIDEMIA, UNSPECIFIED (11) Hypertension Code(s): I10 - ESSENTIAL (PRIMARY) HYPERTENSION (12) Hypothyroidism Code(s): E03.9 - HYPOTHYROIDISM, UNSPECIFIED (13) ICD (implantable cardioverter-defibrillator) in place Code(s): Z95.810 - PRESENCE OF AUTOMATIC (IMPLANTABLE) CARDIAC DEFIBRILLATOR (14) Sleep apnea in adult Code(s): G47.33 - OBSTRUCTIVE SLEEP APNEA (ADULT) (PEDIATRIC)
--- NOTE | 2016-11-29 12:44 | PN ---
Progress Note (short form) - Note Progress Note: PULMONARY CONSULTATION DICTATED 11/29/16 IMP ACUTE ON CHRONIC CHF CHRONIC HYPOXEMIC RESPIRATORY FAILURE COPD ON O2 ASHD S/P CABG S/P AVR LEFT DIAPHRAGMATIC PARALYSIS S/P PPM/AICD AFIB HYPOTHYROIDISM JERALD NOT ON CPAP PLAN LASIX O2 DAILY WTS INHALED BRONCHODILATORS F/U CHEST X-RAY MONITOR LILIAN MORRISSEY Problem List - Problems (1) Acute on chronic systolic CHF (congestive heart failure) Code(s): I50.23 - ACUTE ON CHRONIC SYSTOLIC (CONGESTIVE) HEART FAILURE (2) CHF exacerbation Code(s): I50.9 - HEART FAILURE, UNSPECIFIED Qualifiers: Congestive heart failure type: unspecified congestive heart failure type Qualified Code(s): I50.9 - Heart failure, unspecified (3) Shortness of breath Code(s): R06.02 - SHORTNESS OF BREATH (4) Systolic and diastolic CHF w/reduced LV function, NYHA class 4 Code(s): I50.40 - UNSP COMBINED SYSTOLIC AND DIASTOLIC (CONGESTIVE) HRT FAIL (5) Anxiety Code(s): F41.9 - ANXIETY DISORDER, UNSPECIFIED (6) Aortic valve replaced Code(s): Z95.2 - PRESENCE OF PROSTHETIC HEART VALVE (7) CAD (coronary artery disease) Code(s): I25.10 - ATHSCL HEART DISEASE OF [place] CORONARY ARTERY W/O ANG PCTRS (8) Hx of CABG Code(s): Z95.1 - PRESENCE OF AORTOCORONARY BYPASS GRAFT (9) Hypertension Code(s): I10 - ESSENTIAL (PRIMARY) HYPERTENSION (10) Hypothyroidism Code(s): E03.9 - HYPOTHYROIDISM, UNSPECIFIED (11) ICD (implantable cardioverter-defibrillator) in place Code(s): Z95.810 - PRESENCE OF AUTOMATIC (IMPLANTABLE) CARDIAC DEFIBRILLATOR (12) Sleep apnea in adult Code(s): G47.33 - OBSTRUCTIVE SLEEP APNEA (ADULT) (PEDIATRIC) (13) Valvular heart disease Code(s): I38 - ENDOCARDITIS, VALVE UNSPECIFIED (14) Diaphragm paralysis Code(s): J98.6 - DISORDERS OF DIAPHRAGM (15) Chronic hypoxemic respiratory failure Code(s): J96.11 - CHRONIC RESPIRATORY FAILURE WITH HYPOXIA (16) COPD (chronic obstructive pulmonary disease) Code(s): J44.9 - CHRONIC OBSTRUCTIVE PULMONARY DISEASE, UNSPECIFIED
--- NOTE | 2016-11-29 13:04 | PN ---
Physical Exam: SUBJECTIVE: Patient seen and examined Patient states she still has SOB at night, but improving. She feels as if she is walking better. Denies any other complaints. OBJECTIVE: Vital Signs Period Temp Pulse Resp BP Sys/Camilo Pulse Ox Last 24 Hr 97.6 F-98.0 F 86-91 19-20 100-120/50-63 99 GENERAL: Awake, alert, and fully oriented, in no acute distress on 3L O2 via nasal cannula. HEAD: Normal with no signs of trauma. EYES: Pupils equal, round and reactive to light, extraocular movements intact, sclera anicteric, conjunctiva clear. No lid lag. EARS, NOSE, THROAT: Oropharynx clear without exudates. Moist mucous membranes. NECK: Supple without lymphadenopathy, or masses. LUNGS: Crackles bilateral bases. No accessory muscle use. HEART: Regular rate and rhythm, normal S1 and S2 without murmur, rub or gallop. ABDOMEN: Soft, nontender, not distended, normoactive bowel sounds, no guarding, no rebound, no masses. LOWER EXTREMITIES: 2-3+ pitting edema jayden. No calf tenderness. NEUROLOGICAL: Normal speech. PSYCHIATRIC: Cooperative. Good eye contact. Appropriate mood and affect. SKIN: Cold, dry, normal turgor, no rashes or lesions noted, normal capillary refill. Laboratory Results - last 24 hr 11/29/16 11/29/16 05:35 05:35 WBC 8.5 RBC 4.07 Hgb 10.8 Hct 33.2 MCV 81.6 MCH 26.6 MCHC 32.6 RDW 15.9 H Plt Count 248 MPV 9.1 Neutrophils % 73.1 Lymphocytes % 11.7 D Monocytes % 12.5 H Eosinophils % 2.3 Basophils % 0.4 Sodium 136 Potassium 4.8 Chloride 94 L Carbon Dioxide 33 H Anion Gap 9 BUN 35 H Creatinine 0.8 Creat Clearance w eGFR > 60 Random Glucose 87 Calcium 8.7 Phosphorus 4.2 Magnesium 2.6 H Total Bilirubin 0.5 AST 10 L ALT 15 Alkaline Phosphatase 94 Total Protein 6.8 Albumin 3.5 Active Medications Generic Name Dose Route Start Last Admin Trade Name Freq PRN Reason Stop Dose Admin Acetaminophen 650 mg 11/25/16 14:38 11/28/16 21:33 Tylenol - PO 650 mg Q4H PRN Administration FEVER OR PAIN Aspirin 81 mg 11/23/16 10:00 11/29/16 09:44 Asa - PO 81 mg DAILY [facility] Administration Budesonide/Formoterol Fumarate 1 puff 11/23/16 10:00 11/29/16 09:46 Symbicort 80/4.5mcg - IH 1 puff BID [facility] Administration Clopidogrel Bisulfate 75 mg 11/23/16 10:00 11/29/16 09:44 Plavix - PO 75 mg DAILY [facility] Administration Docusate Sodium 100 mg 11/23/16 10:00 11/29/16 09:44 Colace - PO 100 mg BID [facility] Administration Furosemide 60 mg 11/27/16 14:00 11/29/16 06:25 Lasix Injection - IVPUSH 60 mg TID [facility] Administration Guaifenesin 10 ml 11/25/16 14:38 11/28/16 21:44 Robitussin - PO 10 ml Q4H PRN Administration COUGH Heparin Sodium (Porcine) 5,000 unit 11/23/16 06:00 11/29/16 06:21 Heparin - SQ 5,000 unit TID [facility] Administration Levothyroxine Sodium 75 mcg 11/23/16 10:30 11/29/16 06:21 Synthroid - PO 75 mcg DAILY@0700 [facility] Administration Lisinopril 2.5 mg 11/23/16 10:00 11/29/16 09:44 Prinivil PO Not Given DAILY [facility] Metoprolol Succinate 25 mg 11/23/16 10:00 11/29/16 09:44 Toprol Xl - PO 25 mg BID [facility] Administration Tiotropium [place] 1 puff 11/29/16 13:00 Spiriva - IH DAILY [facility] ASSESSMENT/PLAN: 81yo F with PMH of CHF, asthma/COPD, afib, s/p CABG, 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 # Acute on Chronic Systolic CHF exacerbation, NYHA class 3 - Continue Lasix 60mg IV TID - Holding aldactone due to hyperkalemia and metolazone due to hypotension. Pt as baseline - cont. home meds of Lisinopril, Metoprolol - cont. guaifenesin 10 ml po q4 prn - Abiodun stockings - Cardiology Consult, Dr. Ingram - PCP Consult, Dr. Bella - Strict I & O 's - daily wts - Patient may be a candidate for entresto - Fluid restriction - daily PT #Hyperkalemia, resolved -will continue to monitor #CAD s/p cabg -2nd troponin increased, 3rd stayed the same, 4th downtrending -No sign of acs -Continue aspirin 81 mg -Continue plavix 75 mg #HTN -Controlled -Will monitor and continue home meds (toporol xl 25 mg po bid, lisinopril 2.5 mg po daily, lasix 60 mg iv tid) # asthma/COPD - cont. 3L O2 nasal cannula - cont. home meds of Symbicort, Spiriva # hypothyroidism - cont. home med of Synthroid 75 mcg po daily # HLD - cont. home med of Zocor # FEN - Fluids: no IVFs indicated - Electrolytes: wnl - Nutrition: sodium restricted diet # Prophylaxis - Heparin 5000U SQ TID for DVT prophylaxis Visit type - Emergency Visit Emergency Visit: Yes ED Registration Date: 11/23/16 Care time: The patient presented to the Emergency Department on the above date and was hospitalized for further evaluation of their emergent condition. - New Patient This patient is new to me today: No - Critical Care Critical Care patient: No
--- NOTE | 2016-11-29 13:40 | PN ---
Teaching Attending Note Name of Resident: Lance Walters ATTENDING PHYSICIAN STATEMENT I saw and evaluated the patient. I reviewed the resident's note and discussed the case with the resident. I agree with the resident's findings and plan as documented. SUBJECTIVE:SOB has improved. was able to lay down in bed last night. still dyspnic on exertion. denies CP, fever, chills, cough OBJECTIVE: Last Vital Signs Temp Pulse Resp BP Pulse Ox 98 F 70 18 92/50 98 11/29/16 10:00 11/29/16 10:00 11/29/16 10:00 11/29/16 10:00 11/29/16 09:00 Intake & Output 11/26/16 11/27/16 11/28/16 11/29/16 23:59 23:59 23:59 23:59 Intake Total 470 300 120 240 Output Total 600 190 Balance 470 300 -480 50 Weight 170 lb 9.6 oz 171 lb 8 oz 170 lb 6.4 oz 171 lb 8 oz General NAD CV S1 S2 RRR Lungs B/L crackles bases no wheezing Extremities 2+ pitting edema B/L LE ASSESSMENT AND PLAN: 81yo F with PMH systolic CHF, CAD s/p CABG +PPM AVR, HTN, 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 Acute on chronic systolic CHF exacerbation- modest improvement clinically. weight continues to go up however clinically feels moderately improved. did not tolerate metalozone due to hypotension. off aldactone due to persistent hyperkalemia. currently on lasix 60mg TID IV. will cont for now. cardio on board. strict I&O, daily weights, fluid restriction 2. sustained Vtach-NSVT yesterday. no repeated episodes. unable to titrate up betablocker due to BP. will cont to monitor. Mg level elevated 3. Hyperkalemia- resolved. on low dose acei 4. CAD s/p CABG with PPM- no signs of ACS. 5. HTN- controlled 6. s/p phrenic nerve dysfucntion on home O2- saturating 97% on 3L NC. cont management 7. DVT ppx- hep sq
--- NOTE | 2016-11-29 13:49 | CONS ---
PULMONARY CONSULTATION DATE OF CONSULTATION: 11/29/2016 REQUESTING PHYSICIAN: Chhaya Pierre MD HISTORY OF PRESENT ILLNESS: The patient is an 81-year-old white female known to me from previous hospitalization as well as office followup. Past medical history of severe congestive heart failure, a history of ASHD status post CABG, COPD on home O2 of 2 L, hypertension, status post aortic valve replacement, history of left diaphragmatic paralysis, status post CABG, status post AICD, bilateral lower extremity edema, history of hypothyroidism, admitted to [facility] with complaint of increasing shortness of breath, increasing bilateral lower extremity edema, and 8-pound weight gain since last previous hospitalization despite being on Lasix 80 mg daily. On admission, the patient was felt to be in acute congestive heart failure. She was admitted to the telemetry unit and started on diuretics. The patient denied any complaint of chest pain, nausea, vomiting, or diaphoresis prior to admission. Patient complains of dyspnea with minimal exertion and has significant O2 desaturation with exercise. Patient is a nonsmoker. There is no history of occupational exposure to chemicals or fumes. PAST MEDICAL HISTORY: Again includes CHF, ASHD, status post coronary bypass graft, history of aortic stenosis status post AVR, subsequent phrenic nerve damage and left diaphragmatic paralysis, history of status post pacemaker-defibrillator, chronic lower extremity edema, COPD/asthma on home O2, atrial fibrillation, hypothyroidism. PAST SURGICAL HISTORY: CABG 14 years ago and an aortic valve replacement in 2013, pacemaker and defibrillator, appendectomy, cholecystectomy, and right total knee replacement. No significant history of smoking, quit 21 years ago. No occupational exposures. REVIEW OF SYSTEMS: Positive for orthopnea. Positive dyspnea. No cough. No chest pain. No palpitations. Positive lower extremity edema. CURRENT MEDICATIONS: Include Symbicort 80/4.5, Tylenol, Prinivil, Tudorza, heparin, Plavix, Synthroid, aspirin, Lasix, Robitussin, Colace, and Toprol. PHYSICAL EXAMINATION: General: The patient is an elderly white female, well developed, awake, alert, in no acute distress. Vital Signs: She is currently afebrile. O2 saturation is 96% on 3 L. Blood pressure is 100/50. Respiratory rate is 19. Weight is 171.8 pounds, and heart rate is 88 and irregular. HEENT: Normocephalic, atraumatic. Neck: Supple. Heart: Irregular. S1, S2. Chest: A few bibasilar crackles. Abdomen: Soft. Bowel sounds are positive. Extremities: Bilateral extremity edema. LABORATORY DATA: WBC is 8.5, hemoglobin 10.8, hematocrit 33.2, with a platelet count of 248,000. INR is 1.09. BUN is 35, creatinine 0.8. BNP on admission was 11,915. Chest x-ray: Cardiomegaly and congestion bilaterally. IMPRESSION: 1. Decompensated congestive heart failure. 2. Atrial fibrillation. 3. Chronic obstructive pulmonary disease on home O2. 4. Left diaphragmatic paralysis status post aortic valve replacement. 5. Atherosclerotic heart disease status post coronary artery bypass graft. 6. Aortic stenosis status post aortic valve replacement. 7. Hypertension. 8. Hypothyroidism. PLAN: Continue Lasix, daily weights, supplemental O2, inhaled bronchodilators, obtain other chest x-ray as well as renal function. Thank you. We will follow closely with you. DHARMESH MORRISSEY M.D. [id number]
[2016-11-29] MEDS: TIOTROPIUM BROMIDE 18 MCG/INH (DEVICE W/ 5 CAPSULES) IH SCH (15:01)
--- NOTE | 2016-11-29 15:11 | PN ---
Progress Note, Physician History of Present Illness: Pt seen and examined at bedside. She is awake and appears comfortable. She has not lost any water weight. - Current Medication List Current Medications: Active Medications Acetaminophen (Tylenol -) 650 mg PO Q4H PRN PRN Reason: FEVER OR PAIN Last Admin: 11/28/16 21:33 Dose: 650 mg Aspirin (Asa -) 81 mg PO DAILY [facility] Last Admin: 11/29/16 09:44 Dose: 81 mg Budesonide/Formoterol Fumarate (Symbicort 80/4.5mcg -) 1 puff IH BID [facility] Last Admin: 11/29/16 09:46 Dose: 1 puff Clopidogrel Bisulfate (Plavix -) 75 mg PO DAILY [facility] Last Admin: 11/29/16 09:44 Dose: 75 mg Docusate Sodium (Colace -) 100 mg PO BID [facility] Last Admin: 11/29/16 09:44 Dose: 100 mg Furosemide (Lasix Injection -) 60 mg IVPUSH TID [facility] Last Admin: 11/29/16 15:00 Dose: 60 mg Guaifenesin (Robitussin -) 10 ml PO Q4H PRN PRN Reason: COUGH Last Admin: 11/28/16 21:44 Dose: 10 ml Heparin Sodium (Porcine) (Heparin -) 5,000 unit SQ TID [facility] Last Admin: 11/29/16 13:12 Dose: Not Given Levothyroxine Sodium (Synthroid -) 75 mcg PO DAILY@0700 [facility] Last Admin: 11/29/16 06:21 Dose: 75 mcg Lisinopril (Prinivil) 2.5 mg PO DAILY [facility] Last Admin: 11/29/16 09:44 Dose: Not Given Metoprolol Succinate (Toprol Xl -) 25 mg PO BID [facility] Last Admin: 11/29/16 09:44 Dose: 25 mg Tiotropium [place] (Spiriva -) 1 puff IH DAILY [facility] Last Admin: 11/29/16 15:01 Dose: 1 inh - Objective Vital Signs: Vital Signs Temperature 98.1 F 11/29/16 14:56 Pulse Rate 92 H 11/29/16 14:56 Respiratory Rate 18 11/29/16 10:00 Blood Pressure 115/53 11/29/16 14:56 O2 Sat by Pulse Oximetry (%) 96 11/29/16 09:00 Constitutional: Yes: Calm Eyes: Yes: Conjunctiva Clear HENT: Yes: Atraumatic Neck: Yes: Supple Cardiovascular: Yes: S1, S2 Respiratory: Yes: On Nasal O2 Gastrointestinal: Yes: Soft, Abdomen, Obese Genitourinary: Yes: WNL Edema: Yes Edema: LLE: 1+, RLE: 1+ Neurological: Yes: Oriented Psychiatric: Yes: Oriented Labs: CBC, BMP 11/29/16 05:35 11/29/16 05:35 INR, PTT INR 1.09 (0.82-1.09) 11/22/16 21:29 Problem List - Problems (1) Acute on chronic systolic CHF (congestive heart failure) Code(s): I50.23 - ACUTE ON CHRONIC SYSTOLIC (CONGESTIVE) HEART FAILURE Assessment/Plan Current Medications Generic Name Dose Route Start Last Admin Trade Name Freq PRN Reason Stop Dose Admin Acetaminophen 650 mg 11/25/16 14:38 11/28/16 21:33 Tylenol - PO 650 mg Q4H PRN Administration FEVER OR PAIN Aspirin 81 mg 11/23/16 10:00 11/29/16 09:44 Asa - PO 81 mg DAILY [facility] Administration Budesonide/Formoterol Fumarate 1 puff 11/23/16 10:00 11/29/16 09:46 Symbicort 80/4.5mcg - IH 1 puff BID [facility] Administration Clopidogrel Bisulfate 75 mg 11/23/16 10:00 11/29/16 09:44 Plavix - PO 75 mg DAILY [facility] Administration Docusate Sodium 100 mg 11/23/16 10:00 11/29/16 09:44 Colace - PO 100 mg BID [facility] Administration Furosemide 60 mg 11/27/16 14:00 11/29/16 15:00 Lasix Injection - IVPUSH 60 mg TID [facility] Administration Guaifenesin 10 ml 11/25/16 14:38 11/28/16 21:44 Robitussin - PO 10 ml Q4H PRN Administration COUGH Heparin Sodium (Porcine) 5,000 unit 11/23/16 06:00 11/29/16 13:12 Heparin - SQ Not Given TID [facility] Levothyroxine Sodium 75 mcg 11/23/16 10:30 11/29/16 06:21 Synthroid - PO 75 mcg DAILY@0700 [facility] Administration Lisinopril 2.5 mg 11/23/16 10:00 11/29/16 09:44 Prinivil PO Not Given DAILY [facility] Metoprolol Succinate 25 mg 11/23/16 10:00 11/29/16 09:44 Toprol Xl - PO 25 mg BID [facility] Administration Tiotropium [place] 1 puff 11/29/16 13:00 11/29/16 15:01 Spiriva - IH 1 inh DAILY [facility] Administration 1. dyspnea 2. CHF exacerbation 3. paralyzed hemidiaphragm 4. HTN 5. valvular heart disease 6. azotemia 7. hypothyroid 8. CAD 9. hyponatremia Plan - cont current meds - daily weights - compression stockings - fluid restrict - monitor bp Dr Bella
[2016-11-29] MEDS: ACETAMINOPHEN 325 MG TABLET (FP) PO PRN (20:41)
[2016-11-29] MEDS: guaiFENesin 200 MG/10 ML 10 ML UNIT-DOSE CUPS PO PRN (21:42)
[2016-11-30] MEDS: HEPARIN NA (PORCINE) 5,000 UNITS/ML 1ML VIAL SQ SCH ×2 (07:23→13:10)
[2016-11-30] MEDS: FUROSEMIDE 40 MG/4 ML INJECTABLE VIAL IVPUSH SCH ×3 (07:24→21:08)
[2016-11-30] MEDS: LEVOTHYROXINE NA 75 MCG TABLET (FP) PO SCH (07:25)
[2016-11-30 07:28] LABS: BASOPHIL 0.5 % (0-2.0); EOSINOPHIL 2.7 % (0-4.5); MCH 26.2 pg (25.7-33.7); MCHC 32.3 g/dl (32.0-36.0); NEUTROPHILS 72.6 % (42.8-82.8); PLATELET COUNT 241 K/MM3 (134-434); RDW 16.1 % (11.6-15.6); WHITE BLOOD COUNT 8.2 K/mm3 (4.0-10.0)
[2016-11-30 08:03] LABS: ALBUMIN 3.3 g/dl (3.4-5.0); ANION GAP 7 (8-16); CO2 34 mmol/L (21-32); GLUCOSE,RANDOM 86 mg/dL (74-106); MAGNESIUM 2.5 mg/dL (1.8-2.4)
[2016-11-30 08:06] LABS: ALK PHOS 89 U/L (45-117); BILIRUBIN,TOTAL 0.6 mg/dL (0.2-1.0); CREATININE 0.9 mg/dL (0.55-1.02); PHOSPHOROUS 3.8 mg/dL (2.5-4.9); SGOT/AST 12 U/L (15-37); SGPT/ALT 15 U/L (12-78); TOT PROT 6.6 g/dl (6.4-8.2)
[2016-11-30] MEDS: TIOTROPIUM BROMIDE 18 MCG/INH (DEVICE W/ 5 CAPSULES) IH SCH (09:33)
[2016-11-30] MEDS: ASPIRIN 81 MG CHEWABLE TABLETS PO SCH (09:33)
[2016-11-30] MEDS: DOCUSATE SODIUM 100 MG CAPSULE (FP) PO SCH ×2 (09:33→21:08)
[2016-11-30] MEDS: CLOPIDOGREL BISULFATE 75 MG TABLET (FP) PO SCH (09:33)
[2016-11-30] MEDS: BUDESONIDE/FORMETEROL FUMARATE 80/4.5 mcg INHALER IH SCH ×2 (09:34→21:20)
[2016-11-30] MEDS: LISINOPRIL 5 MG TABLET (FP) PO SCH (09:35)
[2016-11-30] MEDS: METOPROLOL SUCCINATE 25 MG TAB.SR.24H (FP) PO SCH ×2 (09:35→21:08)
--- NOTE | 2016-11-30 10:19 | PN ---
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 No change from baseline in difficulty breathing at this time by complains of orthopnea and unintentional weight gain of 8lbs since her last discharge despite 80mg Lasix daily. - Current Medication List Current Medications: Active Medications Acetaminophen (Tylenol -) 650 mg PO Q4H PRN PRN Reason: FEVER OR PAIN Last Admin: 11/29/16 20:41 Dose: 650 mg Aspirin (Asa -) 81 mg PO DAILY [facility] Last Admin: 11/30/16 09:33 Dose: 81 mg Budesonide/Formoterol Fumarate (Symbicort 80/4.5mcg -) 1 puff IH BID [facility] Last Admin: 11/30/16 09:34 Dose: 1 puff Clopidogrel Bisulfate (Plavix -) 75 mg PO DAILY [facility] Last Admin: 11/30/16 09:33 Dose: 75 mg Docusate Sodium (Colace -) 100 mg PO BID [facility] Last Admin: 11/30/16 09:33 Dose: 100 mg Furosemide (Lasix Injection -) 60 mg IVPUSH TID [facility] Last Admin: 11/30/16 07:24 Dose: 60 mg Guaifenesin (Robitussin -) 10 ml PO Q4H PRN PRN Reason: COUGH Last Admin: 11/29/16 21:42 Dose: 10 ml Heparin Sodium (Porcine) (Heparin -) 5,000 unit SQ TID [facility] Last Admin: 11/30/16 07:23 Dose: 5,000 unit Levothyroxine Sodium (Synthroid -) 75 mcg PO DAILY@0700 [facility] Last Admin: 11/30/16 07:25 Dose: 75 mcg Lisinopril (Prinivil) 2.5 mg PO DAILY [facility] Last Admin: 11/30/16 09:35 Dose: Not Given Metoprolol Succinate (Toprol Xl -) 25 mg PO BID [facility] Last Admin: 11/30/16 09:35 Dose: Not Given Tiotropium [place] (Spiriva -) 1 puff IH DAILY [facility] Last Admin: 11/30/16 09:33 Dose: 1 inh - Objective Vital Signs: Vital Signs Temperature 98.3 F 11/30/16 00:46 Pulse Rate 99 H 11/30/16 00:46 Respiratory Rate 18 11/30/16 00:46 Blood Pressure 115/64 11/30/16 00:46 O2 Sat by Pulse Oximetry (%) 98 11/29/16 21:00 Eyes: Yes: WNL, Conjunctiva Clear, EOM Intact HENT: Yes: WNL, Atraumatic, Normocephalic Neck: Yes: WNL, Supple, Trachea Midline Cardiovascular: Yes: WNL, Regular Rate and Rhythm, Murmur Respiratory: Yes: Diminished Gastrointestinal: Yes: WNL, Normal Bowel Sounds Genitourinary: Yes: WNL Musculoskeletal: Yes: WNL Extremities: Yes: WNL Edema: Yes Integumentary: Yes: WNL Neurological: Yes: WNL, Alert, Oriented ...Motor Strength: WNL Psychiatric: Yes: WNL Labs: CBC, BMP 11/30/16 06:00 11/30/16 05:35 INR, PTT INR 1.09 (0.82-1.09) 11/22/16 21:29 Assessment/Plan - Problems (1) Nonsustained ventricular tachycardia Assessment/Plan: Increase metoprolol ER as tolerated (BP; symptoms). Code(s): I47.2 - VENTRICULAR TACHYCARDIA (2) Shortness of breath Code(s): R06.02 - SHORTNESS OF BREATH (3) Systolic and diastolic CHF w/reduced LV function, NYHA class 4 Assessment/Plan: On beta blockers and lisinopril. Aldcactone was started. On furosemide; f/u Is and Os, daily weight. Code(s): I50.40 - UNSP COMBINED SYSTOLIC AND DIASTOLIC (CONGESTIVE) HRT FAIL (4) Anxiety 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 Code(s): F41.0 - PANIC DISORDER WITHOUT AGORAPHOBIA (5) Aortic valve replaced Code(s): Z95.2 - PRESENCE OF PROSTHETIC HEART VALVE (6) CAD (coronary artery disease) Code(s): I25.10 - ATHSCL HEART DISEASE OF [place] CORONARY ARTERY W/O ANG PCTRS (7) COPD bronchitis Code(s): J44.9 - CHRONIC OBSTRUCTIVE PULMONARY DISEASE, UNSPECIFIED (8) Diabetes Code(s): E11.9 - TYPE 2 DIABETES MELLITUS WITHOUT COMPLICATIONS (9) Hx of CABG Code(s): Z95.1 - PRESENCE OF AORTOCORONARY BYPASS GRAFT (10) Hyperlipidemia Code(s): E78.5 - HYPERLIPIDEMIA, UNSPECIFIED (11) Hypertension Code(s): I10 - ESSENTIAL (PRIMARY) HYPERTENSION (12) Hypothyroidism Code(s): E03.9 - HYPOTHYROIDISM, UNSPECIFIED (13) ICD (implantable cardioverter-defibrillator) in place Code(s): Z95.810 - PRESENCE OF AUTOMATIC (IMPLANTABLE) CARDIAC DEFIBRILLATOR (14) Sleep apnea in adult Code(s): G47.33 - OBSTRUCTIVE SLEEP APNEA (ADULT) (PEDIATRIC)
--- NOTE | 2016-11-30 10:52 | PN ---
Progress Note, Physician History of Present Illness: pulmonary alert,less dyspneic,+york,-cp - Current Medication List Current Medications: Active Medications Acetaminophen (Tylenol -) 650 mg PO Q4H PRN PRN Reason: FEVER OR PAIN Last Admin: 11/29/16 20:41 Dose: 650 mg Aspirin (Asa -) 81 mg PO DAILY [facility] Last Admin: 11/30/16 09:33 Dose: 81 mg Budesonide/Formoterol Fumarate (Symbicort 80/4.5mcg -) 1 puff IH BID [facility] Last Admin: 11/30/16 09:34 Dose: 1 puff Clopidogrel Bisulfate (Plavix -) 75 mg PO DAILY [facility] Last Admin: 11/30/16 09:33 Dose: 75 mg Docusate Sodium (Colace -) 100 mg PO BID [facility] Last Admin: 11/30/16 09:33 Dose: 100 mg Furosemide (Lasix Injection -) 60 mg IVPUSH TID [facility] Last Admin: 11/30/16 07:24 Dose: 60 mg Guaifenesin (Robitussin -) 10 ml PO Q4H PRN PRN Reason: COUGH Last Admin: 11/29/16 21:42 Dose: 10 ml Heparin Sodium (Porcine) (Heparin -) 5,000 unit SQ TID [facility] Last Admin: 11/30/16 07:23 Dose: 5,000 unit Levothyroxine Sodium (Synthroid -) 75 mcg PO DAILY@0700 [facility] Last Admin: 11/30/16 07:25 Dose: 75 mcg Lisinopril (Prinivil) 2.5 mg PO DAILY [facility] Last Admin: 11/30/16 09:35 Dose: Not Given Metoprolol Succinate (Toprol Xl -) 25 mg PO BID [facility] Last Admin: 11/30/16 09:35 Dose: Not Given Tiotropium [place] (Spiriva -) 1 puff IH DAILY [facility] Last Admin: 11/30/16 09:33 Dose: 1 inh - Objective Vital Signs: Vital Signs Temperature 98.3 F 11/30/16 00:46 Pulse Rate 99 H 11/30/16 00:46 Respiratory Rate 18 11/30/16 00:46 Blood Pressure 115/64 11/30/16 00:46 O2 Sat by Pulse Oximetry (%) 98 11/29/16 21:00 Constitutional: Yes: Well Nourished, Calm Eyes: Yes: WNL HENT: Yes: WNL Neck: Yes: WNL Cardiovascular: Yes: Pulse Irregular, S1, S2 Respiratory: Yes: Rales (bibasilar rales) Gastrointestinal: Yes: Normal Bowel Sounds, Soft Extremities: Yes: WNL Edema: Yes Labs: CBC, BMP 11/30/16 06:00 11/30/16 05:35 INR, PTT INR 1.09 (0.82-1.09) 11/22/16 21:29 Problem List - Problems (1) Acute on chronic systolic CHF (congestive heart failure) Code(s): I50.23 - ACUTE ON CHRONIC SYSTOLIC (CONGESTIVE) HEART FAILURE (2) CHF exacerbation Code(s): I50.9 - HEART FAILURE, UNSPECIFIED Qualifiers: Congestive heart failure type: unspecified congestive heart failure type Qualified Code(s): I50.9 - Heart failure, unspecified (3) Shortness of breath Code(s): R06.02 - SHORTNESS OF BREATH (4) Systolic and diastolic CHF w/reduced LV function, NYHA class 4 Code(s): I50.40 - UNSP COMBINED SYSTOLIC AND DIASTOLIC (CONGESTIVE) HRT FAIL (5) Anxiety Code(s): F41.9 - ANXIETY DISORDER, UNSPECIFIED (6) Aortic valve replaced Code(s): Z95.2 - PRESENCE OF PROSTHETIC HEART VALVE (7) CAD (coronary artery disease) Code(s): I25.10 - ATHSCL HEART DISEASE OF [place] CORONARY ARTERY W/O ANG PCTRS (8) Hx of CABG Code(s): Z95.1 - PRESENCE OF AORTOCORONARY BYPASS GRAFT (9) Hypertension Code(s): I10 - ESSENTIAL (PRIMARY) HYPERTENSION (10) Hypothyroidism Code(s): E03.9 - HYPOTHYROIDISM, UNSPECIFIED (11) ICD (implantable cardioverter-defibrillator) in place Code(s): Z95.810 - PRESENCE OF AUTOMATIC (IMPLANTABLE) CARDIAC DEFIBRILLATOR (12) Sleep apnea in adult Code(s): G47.33 - OBSTRUCTIVE SLEEP APNEA (ADULT) (PEDIATRIC) (13) Valvular heart disease Code(s): I38 - ENDOCARDITIS, VALVE UNSPECIFIED (14) Diaphragm paralysis Code(s): J98.6 - DISORDERS OF DIAPHRAGM (15) Chronic hypoxemic respiratory failure Code(s): J96.11 - CHRONIC RESPIRATORY FAILURE WITH HYPOXIA (16) COPD (chronic obstructive pulmonary disease) Code(s): J44.9 - CHRONIC OBSTRUCTIVE PULMONARY DISEASE, UNSPECIFIED Assessment/Plan IMP ACUTE ON CHRONIC CHF CHRONIC HYPOXEMIC RESPIRATORY FAILURE COPD ON O2 ASHD S/P CABG S/P AVR LEFT DIAPHRAGMATIC PARALYSIS S/P PPM/AICD AFIB HYPOTHYROIDISM JERALD NOT ON CPAP PLAN LASIX O2 DAILY WTS INHALED BRONCHODILATORS MONITOR LILIAN MORRISSEY Problem List - Problems (1) Acute on chronic systolic CHF (congestive heart failure) Code(s): I50.23 - ACUTE ON CHRONIC SYSTOLIC (CONGESTIVE) HEART FAILURE (2) CHF exacerbation Code(s): I50.9 - HEART FAILURE, UNSPECIFIED Qualifiers: Congestive heart failure type: unspecified congestive heart failure type Qualified Code(s): I50.9 - Heart failure, unspecified (3) Shortness of breath Code(s): R06.02 - SHORTNESS OF BREATH (4) Systolic and diastolic CHF w/reduced LV function, NYHA class 4 Code(s): I50.40 - UNSP COMBINED SYSTOLIC AND DIASTOLIC (CONGESTIVE) HRT FAIL (5) Anxiety Code(s): F41.9 - ANXIETY DISORDER, UNSPECIFIED (6) Aortic valve replaced Code(s): Z95.2 - PRESENCE OF PROSTHETIC HEART VALVE (7) CAD (coronary artery disease) Code(s): I25.10 - ATHSCL HEART DISEASE OF [place] CORONARY ARTERY W/O ANG PCTRS (8) Hx of CABG Code(s): Z95.1 - PRESENCE OF AORTOCORONARY BYPASS GRAFT (9) Hypertension Code(s): I10 - ESSENTIAL (PRIMARY) HYPERTENSION (10) Hypothyroidism Code(s): E03.9 - HYPOTHYROIDISM, UNSPECIFIED (11) ICD (implantable cardioverter-defibrillator) in place Code(s): Z95.810 - PRESENCE OF AUTOMATIC (IMPLANTABLE) CARDIAC DEFIBRILLATOR (12) Sleep apnea in adult Code(s): G47.33 - OBSTRUCTIVE SLEEP APNEA (ADULT) (PEDIATRIC) (13) Valvular heart disease Code(s): I38 - ENDOCARDITIS, VALVE UNSPECIFIED (14) Diaphragm paralysis Code(s): J98.6 - DISORDERS OF DIAPHRAGM (15) Chronic hypoxemic respiratory failure Code(s): J96.11 - CHRONIC RESPIRATORY FAILURE WITH HYPOXIA (16) COPD (chronic obstructive pulmonary disease) Code(s): J44.9 - CHRONIC OBSTRUCTIVE PULMONARY DISEASE, UNSPECIFIED
--- NOTE | 2016-11-30 11:52 | PN ---
Teaching Attending Note Name of Resident: Lance Walters ATTENDING PHYSICIAN STATEMENT I saw and evaluated the patient. I reviewed the resident's note and discussed the case with the resident. I agree with the resident's findings and plan as documented. SUBJECTIVE:states her breathing has improved but still becomes dyspnic on exertion. denies Cp, fever, chills, N/V/C/D, cough has resolved. OBJECTIVE: Last Vital Signs Temp Pulse Resp BP Pulse Ox 98.3 F 99 H 18 115/64 98 11/30/16 00:46 11/30/16 00:46 11/30/16 00:46 11/30/16 00:46 11/29/16 21:00 Intake & Output 11/27/16 11/28/16 11/29/16 11/30/16 23:59 23:59 23:59 23:59 Intake Total 921 251 5910 Output Total 600 390 Balance 300 -480 700 Weight 171 lb 8 oz 170 lb 6.4 oz 171 lb 8 oz General NAD CV S1 S2 RRR Lungs B/L crackles bases no wheezing Extremities 2+ pitting edema B/L LE ASSESSMENT AND PLAN: 81yo F with PMH systolic CHF, CAD s/p CABG +PPM AVR, HTN, 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 Acute on chronic systolic CHF exacerbation- continues to appear volume overloaded. not responding to lasix IV. d/w renal will start metalozone to promote diuresis. did not tolerate previously but will attempt again. closely monitor electolytes. currently on lasix 60mg TID IV. not tolerating aldactone due to hyperkalemia. cardio and renal on board. strict I&O, daily weights, fluid restriction 2. sustained Vtach-NSVT last night. no symptoms. unable to titrate up betablocker due to BP. will cont to monitor. Mg level elevated 3. Hyperkalemia- resolved. on low dose acei 4. CAD s/p CABG with PPM- no signs of ACS. 5. HTN- controlled 6. 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 cont management 7. DVT ppx- hep sq
--- NOTE | 2016-11-30 13:07 | PN ---
Progress Note, Physician History of Present Illness: Pt seen and examined at bedside. She is awake and alert. She gets SOB on ambulation. She has not lost much water weight and is not diuresing. - Current Medication List Current Medications: Active Medications Acetaminophen (Tylenol -) 650 mg PO Q4H PRN PRN Reason: FEVER OR PAIN Last Admin: 11/29/16 20:41 Dose: 650 mg Aspirin (Asa -) 81 mg PO DAILY [facility] Last Admin: 11/30/16 09:33 Dose: 81 mg Budesonide/Formoterol Fumarate (Symbicort 80/4.5mcg -) 1 puff IH BID [facility] Last Admin: 11/30/16 09:34 Dose: 1 puff Clopidogrel Bisulfate (Plavix -) 75 mg PO DAILY [facility] Last Admin: 11/30/16 09:33 Dose: 75 mg Docusate Sodium (Colace -) 100 mg PO BID [facility] Last Admin: 11/30/16 09:33 Dose: 100 mg Furosemide (Lasix Injection -) 60 mg IVPUSH TID [facility] Last Admin: 11/30/16 07:24 Dose: 60 mg Guaifenesin (Robitussin -) 10 ml PO Q4H PRN PRN Reason: COUGH Last Admin: 11/29/16 21:42 Dose: 10 ml Heparin Sodium (Porcine) (Heparin -) 5,000 unit SQ TID [facility] Last Admin: 11/30/16 07:23 Dose: 5,000 unit Levothyroxine Sodium (Synthroid -) 75 mcg PO DAILY@0700 [facility] Last Admin: 11/30/16 07:25 Dose: 75 mcg Lisinopril (Prinivil) 2.5 mg PO DAILY [facility] Last Admin: 11/30/16 09:35 Dose: Not Given Metoprolol Succinate (Toprol Xl -) 25 mg PO BID [facility] Last Admin: 11/30/16 09:35 Dose: Not Given Tiotropium [place] (Spiriva -) 1 puff IH DAILY [facility] Last Admin: 11/30/16 09:33 Dose: 1 inh - Objective Vital Signs: Vital Signs Temperature 98.0 F 11/30/16 10:00 Pulse Rate 84 11/30/16 10:00 Respiratory Rate 22 11/30/16 10:00 Blood Pressure 98/68 11/30/16 10:00 O2 Sat by Pulse Oximetry (%) 98 11/29/16 21:00 Constitutional: Yes: Calm Eyes: Yes: Conjunctiva Clear HENT: Yes: Atraumatic Cardiovascular: Yes: S1, S2 Respiratory: Yes: On Nasal O2, Rhonchi Gastrointestinal: Yes: Soft, Abdomen, Obese Genitourinary: Yes: WNL Extremities: Yes: WNL Edema: Yes Edema: LLE: 1+, RLE: 1+ Neurological: Yes: Oriented Psychiatric: Yes: Oriented Labs: CBC, BMP 11/30/16 06:00 11/30/16 05:35 INR, PTT INR 1.09 (0.82-1.09) 11/22/16 21:29 Problem List - Problems (1) Acute on chronic systolic CHF (congestive heart failure) Code(s): I50.23 - ACUTE ON CHRONIC SYSTOLIC (CONGESTIVE) HEART FAILURE Assessment/Plan Current Medications Generic Name Dose Route Start Last Admin Trade Name Freq PRN Reason Stop Dose Admin Acetaminophen 650 mg 11/25/16 14:38 11/29/16 20:41 Tylenol - PO 650 mg Q4H PRN Administration FEVER OR PAIN Aspirin 81 mg 11/23/16 10:00 11/30/16 09:33 Asa - PO 81 mg DAILY [facility] Administration Budesonide/Formoterol Fumarate 1 puff 11/23/16 10:00 11/30/16 09:34 Symbicort 80/4.5mcg - IH 1 puff BID [facility] Administration Clopidogrel Bisulfate 75 mg 11/23/16 10:00 11/30/16 09:33 Plavix - PO 75 mg DAILY [facility] Administration Docusate Sodium 100 mg 11/23/16 10:00 11/30/16 09:33 Colace - PO 100 mg BID [facility] Administration Furosemide 60 mg 11/27/16 14:00 11/30/16 07:24 Lasix Injection - IVPUSH 60 mg TID [facility] Administration Guaifenesin 10 ml 11/25/16 14:38 11/29/16 21:42 Robitussin - PO 10 ml Q4H PRN Administration COUGH Heparin Sodium (Porcine) 5,000 unit 11/23/16 06:00 11/30/16 07:23 Heparin - SQ 5,000 unit TID [facility] Administration Levothyroxine Sodium 75 mcg 11/23/16 10:30 11/30/16 07:25 Synthroid - PO 75 mcg DAILY@0700 [facility] Administration Lisinopril 2.5 mg 11/23/16 10:00 11/30/16 09:35 Prinivil PO Not Given DAILY [facility] Metoprolol Succinate 25 mg 11/23/16 10:00 11/30/16 09:35 Toprol Xl - PO Not Given BID [facility] Tiotropium [place] 1 puff 11/29/16 13:00 11/30/16 09:33 Spiriva - IH 1 inh DAILY [facility] Administration 1. dyspnea 2. CHF exacerbation 3. paralyzed hemidiaphragm 4. HTN 5. valvular heart disease 6. azotemia 7. hypothyroid 8. CAD 9. hyponatremia Plan - potassium is stable - con low K diet - will give dose of spironolactone - cont with lasix - cardiology follow up - compression stockings to legs - heart health low potassium diet - daily weights - fluid restrict - monitor bp Dr Bella
[2016-11-30] MEDS ORDERED: SPIRONOLACTONE 25 MG TABLET (FP) PO ONE (13:15)
--- NOTE | 2016-11-30 13:43 | PN ---
Progress Note (short form) - Note Progress Note: PULMONARY OOB TO CHAIR LESS SOB/LESS LOWER EXT EDEMA VSS/FEBRILE ANICTERIC SCATERED CRACKLES S1S2 PACED BS+ 2+ EDEMA LABS/MEDS/NOTES/IMAGING/MICRO REVIEWED IMP ACUTE ON CHRONIC CHF CHRONIC HYPOXEMIC RESPIRATORY FAILURE COPD ON O2 ASHD S/P CABG S/P AVR LEFT DIAPHRAGMATIC PARALYSIS S/P PPM/AICD AFIB HYPOTHYROIDISM JERALD NOT ON CPAP PLAN LASIX/FERNANDO/B-BLOCKERS/PLAVIX O2 TO KEEP SAT GREATER THAN 90% DAILY WTS/MONITOR INPUT/OUTPUT INHALED BRONCHODILATORS MONITOR LILIAN MENEZES MD
--- NOTE | 2016-11-30 14:24 | PN ---
Physical Exam: SUBJECTIVE: Patient seen and examined No acute events overnight. Patient had 17 beats of non sustained v tach overnight. Today patient feels better. Legs are less swollen and can walk further with PT OBJECTIVE: Vital Signs Period Temp Pulse Resp BP Sys/Camilo Pulse Ox Last 24 Hr 98.0 F-98.4 F 84-101 18- 98-115/45-68 98-98 GENERAL: Awake, alert, and fully oriented, in no acute distress on 3L O2 via nasal cannula. HEAD: Normal with no signs of trauma. EYES: Pupils equal, round and reactive to light, extraocular movements intact, sclera anicteric, conjunctiva clear. No lid lag. EARS, NOSE, THROAT: Oropharynx clear without exudates. Moist mucous membranes. NECK: Supple without lymphadenopathy, or masses. LUNGS: Crackles bilateral bases. No accessory muscle use. HEART: Regular rate and rhythm, normal S1 and S2 without murmur, rub or gallop. ABDOMEN: Soft, nontender, not distended, normoactive bowel sounds, no guarding, no rebound, no masses. LOWER EXTREMITIES: 1+ pitting edema jayden. No calf tenderness. NEUROLOGICAL: Normal speech. PSYCHIATRIC: Cooperative. Good eye contact. Appropriate mood and affect. SKIN: Cold, dry, normal turgor, no rashes or lesions noted, normal capillary refill. Laboratory Results - last 24 hr 11/30/16 11/30/16 05:35 06:00 WBC 8.2 RBC 3.95 Hgb 10.4 L Hct 32.0 L MCV 81.0 MCH 26.2 MCHC 32.3 RDW 16.1 H Plt Count 241 MPV 9.0 Neutrophils % 72.6 Lymphocytes % 10.7 Monocytes % 13.5 H Eosinophils % 2.7 Basophils % 0.5 Sodium 135 L Potassium 4.2 Chloride 94 L Carbon Dioxide 34 H Anion Gap 7 L BUN 32 H Creatinine 0.9 Creat Clearance w eGFR 59.80 Random Glucose 86 Calcium 9.0 Phosphorus 3.8 Magnesium 2.5 H Total Bilirubin 0.6 AST 12 L ALT 15 Alkaline Phosphatase 89 Total Protein 6.6 Albumin 3.3 L Active Medications Generic Name Dose Route Start Last Admin Trade Name Freq PRN Reason Stop Dose Admin Acetaminophen 650 mg 11/25/16 14:38 11/29/16 20:41 Tylenol - PO 650 mg Q4H PRN Administration FEVER OR PAIN Aspirin 81 mg 11/23/16 10:00 11/30/16 09:33 Asa - PO 81 mg DAILY [facility] Administration Budesonide/Formoterol Fumarate 1 puff 11/23/16 10:00 11/30/16 09:34 Symbicort 80/4.5mcg - IH 1 puff BID [facility] Administration Clopidogrel Bisulfate 75 mg 11/23/16 10:00 11/30/16 09:33 Plavix - PO 75 mg DAILY [facility] Administration Docusate Sodium 100 mg 11/23/16 10:00 11/30/16 09:33 Colace - PO 100 mg BID [facility] Administration Enoxaparin Sodium 40 mg 12/01/16 10:00 Lovenox - SQ DAILY [facility] Furosemide 60 mg 11/27/16 14:00 11/30/16 13:10 Lasix Injection - IVPUSH 60 mg TID [facility] Administration Guaifenesin 10 ml 11/25/16 14:38 11/29/16 21:42 Robitussin - PO 10 ml Q4H PRN Administration COUGH Levothyroxine Sodium 75 mcg 11/23/16 10:30 11/30/16 07:25 Synthroid - PO 75 mcg DAILY@0700 [facility] Administration Lisinopril 2.5 mg 11/23/16 10:00 11/30/16 09:35 Prinivil PO Not Given DAILY [facility] Metoprolol Succinate 25 mg 11/23/16 10:00 11/30/16 09:35 Toprol Xl - PO Not Given BID [facility] Tiotropium [place] 1 puff 11/29/16 13:00 11/30/16 09:33 Spiriva - IH 1 inh DAILY [facility] Administration ASSESSMENT/PLAN: 81yo F with PMH of CHF, asthma/COPD, afib, s/p CABG, 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 # Acute on Chronic Systolic CHF exacerbation, NYHA class 3 - Continue Lasix 60mg IV TID - 1x dose of aldactone 25 mg po given today - Holding metolazone due to hypotension. Pt at baseline BP - cont. home meds of Lisinopril, Metoprolol - cont. guaifenesin 10 ml po q4 prn - Abiodun stockings- patient refusing - Cardiology Consult, Dr. Ingram - PCP Consult, Dr. Bella - Strict I & O 's - daily wts - Patient may be a candidate for entresto - Fluid restriction - daily PT #Hyperkalemia, resolved -will continue to monitor #CAD s/p cabg -2nd troponin increased, 3rd stayed the same, 4th downtrending -No sign of acs -Continue aspirin 81 mg -Continue plavix 75 mg #HTN -Controlled -Will monitor and continue home meds (toporol xl 25 mg po bid, lisinopril 2.5 mg po daily, lasix 60 mg iv tid) # asthma/COPD - cont. 3L O2 nasal cannula - cont. home meds of Symbicort, Spiriva # hypothyroidism - cont. home med of Synthroid 75 mcg po daily # HLD - cont. home med of Zocor # FEN - Fluids: no IVFs indicated - Electrolytes: wnl - Nutrition: potassium/sodium restricted diet # Prophylaxis - Lovenox 40 mg sq daily Visit type - Emergency Visit Emergency Visit: Yes ED Registration Date: 11/23/16 Care time: The patient presented to the Emergency Department on the above date and was hospitalized for further evaluation of their emergent condition. - New Patient This patient is new to me today: No - Critical Care Critical Care patient: No
[2016-11-30] MEDS: ACETAMINOPHEN 325 MG TABLET (FP) PO PRN (19:33)
[2016-11-30] MEDS: guaiFENesin 200 MG/10 ML 10 ML UNIT-DOSE CUPS PO PRN (21:11)
[2016-12-01] MEDS: FUROSEMIDE 40 MG/4 ML INJECTABLE VIAL IVPUSH SCH ×3 (06:25→21:23)
[2016-12-01] MEDS: LEVOTHYROXINE NA 75 MCG TABLET (FP) PO SCH (06:25)
[2016-12-01 08:36] LABS: ANION GAP 9 (8-16); CALCIUM 9.3 mg/dL (8.5-10.1); CO2 35 mmol/L (21-32); GLUCOSE,RANDOM 91 mg/dL (74-106); MAGNESIUM 2.5 mg/dL (1.8-2.4); PHOSPHOROUS 4.2 mg/dL (2.5-4.9)
[2016-12-01] MEDS: DOCUSATE SODIUM 100 MG CAPSULE (FP) PO SCH ×2 (09:31→21:23)
[2016-12-01] MEDS: ASPIRIN 81 MG CHEWABLE TABLETS PO SCH (09:31)
[2016-12-01] MEDS: ENOXAPARIN NA (PORCINE) 40 MG/0.4 ML DISP.SYRIN SQ SCH (09:31)
[2016-12-01] MEDS: LISINOPRIL 5 MG TABLET (FP) PO SCH (09:31)
[2016-12-01] MEDS: METOPROLOL SUCCINATE 25 MG TAB.SR.24H (FP) PO SCH ×2 (09:31→21:23)
[2016-12-01] MEDS: CLOPIDOGREL BISULFATE 75 MG TABLET (FP) PO SCH (09:31)
[2016-12-01] MEDS: TIOTROPIUM BROMIDE 18 MCG/INH (DEVICE W/ 5 CAPSULES) IH SCH (09:32)
[2016-12-01] MEDS: BUDESONIDE/FORMETEROL FUMARATE 80/4.5 mcg INHALER IH SCH ×2 (09:32→21:23)
--- NOTE | 2016-12-01 10:22 | PN ---
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 No change from baseline in difficulty breathing at this time by complains of orthopnea and unintentional weight gain of 8lbs since her last discharge despite 80mg Lasix daily. - Current Medication List Current Medications: Active Medications Acetaminophen (Tylenol -) 650 mg PO Q4H PRN PRN Reason: FEVER OR PAIN Last Admin: 11/30/16 19:33 Dose: 650 mg Aspirin (Asa -) 81 mg PO DAILY [facility] Last Admin: 12/01/16 09:31 Dose: 81 mg Budesonide/Formoterol Fumarate (Symbicort 80/4.5mcg -) 1 puff IH BID [facility] Last Admin: 12/01/16 09:32 Dose: 1 puff Clopidogrel Bisulfate (Plavix -) 75 mg PO DAILY [facility] Last Admin: 12/01/16 09:31 Dose: 75 mg Docusate Sodium (Colace -) 100 mg PO BID [facility] Last Admin: 12/01/16 09:31 Dose: 100 mg Enoxaparin Sodium (Lovenox -) 40 mg SQ DAILY [facility] Last Admin: 12/01/16 09:31 Dose: 40 mg Furosemide (Lasix Injection -) 60 mg IVPUSH TID [facility] Last Admin: 12/01/16 06:25 Dose: 60 mg Guaifenesin (Robitussin -) 10 ml PO Q4H PRN PRN Reason: COUGH Last Admin: 11/30/16 21:11 Dose: 10 ml Levothyroxine Sodium (Synthroid -) 75 mcg PO DAILY@0700 [facility] Last Admin: 12/01/16 06:25 Dose: 75 mcg Lisinopril (Prinivil) 2.5 mg PO DAILY [facility] Last Admin: 12/01/16 09:31 Dose: 2.5 mg Metoprolol Succinate (Toprol Xl -) 25 mg PO BID [facility] Last Admin: 12/01/16 09:31 Dose: 25 mg Tiotropium [place] (Spiriva -) 1 puff IH DAILY [facility] Last Admin: 12/01/16 09:32 Dose: 1 inh - Objective Vital Signs: Vital Signs Temperature 97.8 F 12/01/16 10:00 Pulse Rate 102 H 12/01/16 10:00 Respiratory Rate 22 12/01/16 10:00 Blood Pressure 111/57 12/01/16 10:00 O2 Sat by Pulse Oximetry (%) 96 11/30/16 22:00 Eyes: Yes: WNL, Conjunctiva Clear, EOM Intact HENT: Yes: WNL, Atraumatic, Normocephalic Neck: Yes: WNL, Supple, Trachea Midline Cardiovascular: Yes: WNL, Regular Rate and Rhythm, Murmur Respiratory: Yes: WNL, Regular, CTA Bilaterally Gastrointestinal: Yes: WNL, Normal Bowel Sounds Genitourinary: Yes: WNL Musculoskeletal: Yes: WNL Extremities: Yes: WNL Edema: Yes Integumentary: Yes: WNL Neurological: Yes: WNL, Alert, Oriented ...Motor Strength: WNL Psychiatric: Yes: WNL Labs: CBC, BMP 11/30/16 06:00 12/01/16 05:50 INR, PTT INR 1.09 (0.82-1.09) 11/22/16 21:29 Assessment/Plan - Problems (1) Nonsustained ventricular tachycardia Assessment/Plan: Increase metoprolol ER as tolerated (BP; symptoms). Code(s): I47.2 - VENTRICULAR TACHYCARDIA (2) Shortness of breath Code(s): R06.02 - SHORTNESS OF BREATH (3) Systolic and diastolic CHF w/reduced LV function, NYHA class 4 Assessment/Plan: On beta blockers and lisinopril. Aldcactone was started. On furosemide; f/u Is and Os, daily weight. Code(s): I50.40 - UNSP COMBINED SYSTOLIC AND DIASTOLIC (CONGESTIVE) HRT FAIL (4) Anxiety 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 Code(s): F41.0 - PANIC DISORDER WITHOUT AGORAPHOBIA (5) Aortic valve replaced Code(s): Z95.2 - PRESENCE OF PROSTHETIC HEART VALVE (6) CAD (coronary artery disease) Code(s): I25.10 - ATHSCL HEART DISEASE OF [place] CORONARY ARTERY W/O ANG PCTRS (7) COPD bronchitis Code(s): J44.9 - CHRONIC OBSTRUCTIVE PULMONARY DISEASE, UNSPECIFIED (8) Diabetes Code(s): E11.9 - TYPE 2 DIABETES MELLITUS WITHOUT COMPLICATIONS (9) Hx of CABG Code(s): Z95.1 - PRESENCE OF AORTOCORONARY BYPASS GRAFT (10) Hyperlipidemia Code(s): E78.5 - HYPERLIPIDEMIA, UNSPECIFIED (11) Hypertension Code(s): I10 - ESSENTIAL (PRIMARY) HYPERTENSION (12) Hypothyroidism Code(s): E03.9 - HYPOTHYROIDISM, UNSPECIFIED (13) ICD (implantable cardioverter-defibrillator) in place Code(s): Z95.810 - PRESENCE OF AUTOMATIC (IMPLANTABLE) CARDIAC DEFIBRILLATOR (14) Sleep apnea in adult Code(s): G47.33 - OBSTRUCTIVE SLEEP APNEA (ADULT) (PEDIATRIC)
--- NOTE | 2016-12-01 10:49 | PN ---
Progress Note, Physician History of Present Illness: PULMONARY ALERT,LESS DYSPNEIC. - Current Medication List Current Medications: Active Medications Acetaminophen (Tylenol -) 650 mg PO Q4H PRN PRN Reason: FEVER OR PAIN Last Admin: 11/30/16 19:33 Dose: 650 mg Aspirin (Asa -) 81 mg PO DAILY [facility] Last Admin: 12/01/16 09:31 Dose: 81 mg Budesonide/Formoterol Fumarate (Symbicort 80/4.5mcg -) 1 puff IH BID [facility] Last Admin: 12/01/16 09:32 Dose: 1 puff Clopidogrel Bisulfate (Plavix -) 75 mg PO DAILY [facility] Last Admin: 12/01/16 09:31 Dose: 75 mg Docusate Sodium (Colace -) 100 mg PO BID [facility] Last Admin: 12/01/16 09:31 Dose: 100 mg Enoxaparin Sodium (Lovenox -) 40 mg SQ DAILY [facility] Last Admin: 12/01/16 09:31 Dose: 40 mg Furosemide (Lasix Injection -) 60 mg IVPUSH TID [facility] Last Admin: 12/01/16 06:25 Dose: 60 mg Guaifenesin (Robitussin -) 10 ml PO Q4H PRN PRN Reason: COUGH Last Admin: 11/30/16 21:11 Dose: 10 ml Levothyroxine Sodium (Synthroid -) 75 mcg PO DAILY@0700 [facility] Last Admin: 12/01/16 06:25 Dose: 75 mcg Lisinopril (Prinivil) 2.5 mg PO DAILY [facility] Last Admin: 12/01/16 09:31 Dose: 2.5 mg Metoprolol Succinate (Toprol Xl -) 25 mg PO BID [facility] Last Admin: 12/01/16 09:31 Dose: 25 mg Tiotropium [place] (Spiriva -) 1 puff IH DAILY [facility] Last Admin: 12/01/16 09:32 Dose: 1 inh - Objective Vital Signs: Vital Signs Temperature 97.8 F 12/01/16 10:00 Pulse Rate 102 H 12/01/16 10:00 Respiratory Rate 22 12/01/16 10:00 Blood Pressure 111/57 12/01/16 10:00 O2 Sat by Pulse Oximetry (%) 96 11/30/16 22:00 Constitutional: Yes: Well Nourished, Calm Eyes: Yes: WNL HENT: Yes: WNL Neck: Yes: WNL Cardiovascular: Yes: Regular Rate and Rhythm, S1, S2 Respiratory: Yes: Rales (BIBASILAR RALES) Gastrointestinal: Yes: Normal Bowel Sounds, Soft Extremities: Yes: WNL Edema: Yes (LESS EDEMA BILATERALLY) Edema: LLE: 2+, RLE: 2+ Labs: CBC, BMP 11/30/16 06:00 12/01/16 05:50 INR, PTT INR 1.09 (0.82-1.09) 11/22/16 21:29 Problem List - Problems (1) Acute on chronic systolic CHF (congestive heart failure) Code(s): I50.23 - ACUTE ON CHRONIC SYSTOLIC (CONGESTIVE) HEART FAILURE (2) CHF exacerbation Code(s): I50.9 - HEART FAILURE, UNSPECIFIED Qualifiers: Congestive heart failure type: unspecified congestive heart failure type Qualified Code(s): I50.9 - Heart failure, unspecified (3) Shortness of breath Code(s): R06.02 - SHORTNESS OF BREATH (4) Systolic and diastolic CHF w/reduced LV function, NYHA class 4 Code(s): I50.40 - UNSP COMBINED SYSTOLIC AND DIASTOLIC (CONGESTIVE) HRT FAIL (5) Anxiety Code(s): F41.9 - ANXIETY DISORDER, UNSPECIFIED (6) Aortic valve replaced Code(s): Z95.2 - PRESENCE OF PROSTHETIC HEART VALVE (7) CAD (coronary artery disease) Code(s): I25.10 - ATHSCL HEART DISEASE OF [place] CORONARY ARTERY W/O ANG PCTRS (8) Hx of CABG Code(s): Z95.1 - PRESENCE OF AORTOCORONARY BYPASS GRAFT (9) Hypertension Code(s): I10 - ESSENTIAL (PRIMARY) HYPERTENSION (10) Hypothyroidism Code(s): E03.9 - HYPOTHYROIDISM, UNSPECIFIED (11) ICD (implantable cardioverter-defibrillator) in place Code(s): Z95.810 - PRESENCE OF AUTOMATIC (IMPLANTABLE) CARDIAC DEFIBRILLATOR (12) Sleep apnea in adult Code(s): G47.33 - OBSTRUCTIVE SLEEP APNEA (ADULT) (PEDIATRIC) (13) Valvular heart disease Code(s): I38 - ENDOCARDITIS, VALVE UNSPECIFIED (14) Diaphragm paralysis Code(s): J98.6 - DISORDERS OF DIAPHRAGM (15) Chronic hypoxemic respiratory failure Code(s): J96.11 - CHRONIC RESPIRATORY FAILURE WITH HYPOXIA (16) COPD (chronic obstructive pulmonary disease) Code(s): J44.9 - CHRONIC OBSTRUCTIVE PULMONARY DISEASE, UNSPECIFIED Assessment/Plan IMP ACUTE ON CHRONIC CHF CHRONIC HYPOXEMIC RESPIRATORY FAILURE COPD ON O2 ASHD S/P CABG S/P AVR LEFT DIAPHRAGMATIC PARALYSIS S/P PPM/AICD AFIB HYPOTHYROIDISM JERLAD NOT ON CPAP PLAN Continue LASIX O2 DAILY WTS INHALED BRONCHODILATORS MONITOR LILIAN MORRISSEY Problem List - Problems (1) Acute on chronic systolic CHF (congestive heart failure) Code(s): I50.23 - ACUTE ON CHRONIC SYSTOLIC (CONGESTIVE) HEART FAILURE (2) CHF exacerbation Code(s): I50.9 - HEART FAILURE, UNSPECIFIED Qualifiers: Congestive heart failure type: unspecified congestive heart failure type Qualified Code(s): I50.9 - Heart failure, unspecified (3) Shortness of breath Code(s): R06.02 - SHORTNESS OF BREATH (4) Systolic and diastolic CHF w/reduced LV function, NYHA class 4 Code(s): I50.40 - UNSP COMBINED SYSTOLIC AND DIASTOLIC (CONGESTIVE) HRT FAIL (5) Anxiety Code(s): F41.9 - ANXIETY DISORDER, UNSPECIFIED (6) Aortic valve replaced Code(s): Z95.2 - PRESENCE OF PROSTHETIC HEART VALVE (7) CAD (coronary artery disease) Code(s): I25.10 - ATHSCL HEART DISEASE OF [place] CORONARY ARTERY W/O ANG PCTRS (8) Hx of CABG Code(s): Z95.1 - PRESENCE OF AORTOCORONARY BYPASS GRAFT (9) Hypertension Code(s): I10 - ESSENTIAL (PRIMARY) HYPERTENSION (10) Hypothyroidism Code(s): E03.9 - HYPOTHYROIDISM, UNSPECIFIED (11) ICD (implantable cardioverter-defibrillator) in place Code(s): Z95.810 - PRESENCE OF AUTOMATIC (IMPLANTABLE) CARDIAC DEFIBRILLATOR (12) Sleep apnea in adult Code(s): G47.33 - OBSTRUCTIVE SLEEP APNEA (ADULT) (PEDIATRIC) (13) Valvular heart disease Code(s): I38 - ENDOCARDITIS, VALVE UNSPECIFIED (14) Diaphragm paralysis Code(s): J98.6 - DISORDERS OF DIAPHRAGM (15) Chronic hypoxemic respiratory failure Code(s): J96.11 - CHRONIC RESPIRATORY FAILURE WITH HYPOXIA (16) COPD (chronic obstructive pulmonary disease) Code(s): J44.9 - CHRONIC OBSTRUCTIVE PULMONARY DISEASE, UNSPECIFIED
--- NOTE | 2016-12-01 13:25 | PN ---
Teaching Attending Note Name of Resident: Lance Walters ATTENDING PHYSICIAN STATEMENT I saw and evaluated the patient. I reviewed the resident's note and discussed the case with the resident. I agree with the resident's findings and plan as documented. SUBJECTIVE:states feels much improved but not at baseline. was able to ambulate further than yesterday. no cough, CP, fever, chills, N/V/C/D OBJECTIVE: Last Vital Signs Temp Pulse Resp BP Pulse Ox 97.8 F 102 H 22 111/57 96 12/01/16 10:00 12/01/16 10:00 12/01/16 10:00 12/01/16 10:00 11/30/16 22:00 Intake & Output 11/28/16 11/29/16 11/30/16 12/01/16 23:59 23:59 23:59 23:59 Intake Total 120 1090 560 240 Output Total 600 390 500 600 Balance -480 700 60 -360 Weight 170 lb 6.4 oz 171 lb 8 oz 170 lb General NAD CV S1 S2 RRR Lungs B/L crackles bases no wheezing Extremities 2+ pitting edema B/L LE ASSESSMENT AND PLAN: 81yo F with PMH systolic CHF, CAD s/p CABG +PPM AVR, HTN, 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 Acute on chronic systolic CHF exacerbation- clinically appears improved. decreased in 1 lb from yesterday on aldactone. will need to watch potassium while on spirolactone as slowly increasing. BP has also improved. cont current dosing lasix. but will likely reuqire to start cutting back as bicarb is trending up. cardio and renal on board. strict I&O, daily weights, fluid restriction 2. sustained Vtach-continues to have NSVT at night. no symptoms. unable to titrate up betablocker due to BP. will cont to monitor. Mg level elevated 3. Hyperkalemia- resolved. on low dose acei 4. CAD s/p CABG with PPM- no signs of ACS. 5. HTN- controlled 6. 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 cont management 7. DVT ppx- hep sq
[2016-12-01] MEDS ORDERED: SPIRONOLACTONE 25 MG TABLET (FP) PO ONE (14:00)
--- NOTE | 2016-12-01 15:06 | PN ---
Progress Note, Physician History of Present Illness: Pt seen and examined at bedside. No new events. - Current Medication List Current Medications: Active Medications Acetaminophen (Tylenol -) 650 mg PO Q4H PRN PRN Reason: FEVER OR PAIN Last Admin: 11/30/16 19:33 Dose: 650 mg Aspirin (Asa -) 81 mg PO DAILY [facility] Last Admin: 12/01/16 09:31 Dose: 81 mg Budesonide/Formoterol Fumarate (Symbicort 80/4.5mcg -) 1 puff IH BID [facility] Last Admin: 12/01/16 09:32 Dose: 1 puff Clopidogrel Bisulfate (Plavix -) 75 mg PO DAILY [facility] Last Admin: 12/01/16 09:31 Dose: 75 mg Docusate Sodium (Colace -) 100 mg PO BID [facility] Last Admin: 12/01/16 09:31 Dose: 100 mg Enoxaparin Sodium (Lovenox -) 40 mg SQ DAILY [facility] Last Admin: 12/01/16 09:31 Dose: 40 mg Furosemide (Lasix Injection -) 60 mg IVPUSH TID [facility] Last Admin: 12/01/16 14:36 Dose: 60 mg Guaifenesin (Robitussin -) 10 ml PO Q4H PRN PRN Reason: COUGH Last Admin: 11/30/16 21:11 Dose: 10 ml Levothyroxine Sodium (Synthroid -) 75 mcg PO DAILY@0700 [facility] Last Admin: 12/01/16 06:25 Dose: 75 mcg Lisinopril (Prinivil) 2.5 mg PO DAILY [facility] Last Admin: 12/01/16 09:31 Dose: 2.5 mg Metoprolol Succinate (Toprol Xl -) 25 mg PO BID [facility] Last Admin: 12/01/16 09:31 Dose: 25 mg Tiotropium [place] (Spiriva -) 1 puff IH DAILY [facility] Last Admin: 12/01/16 09:32 Dose: 1 inh - Objective Vital Signs: Vital Signs Temperature 97.8 F 12/01/16 10:00 Pulse Rate 102 H 12/01/16 10:00 Respiratory Rate 22 12/01/16 10:00 Blood Pressure 111/57 12/01/16 10:00 O2 Sat by Pulse Oximetry (%) 96 11/30/16 22:00 Constitutional: Yes: Calm Eyes: Yes: Conjunctiva Clear HENT: Yes: Atraumatic Cardiovascular: Yes: S1, S2 Respiratory: Yes: On Nasal O2 Gastrointestinal: Yes: Soft Genitourinary: Yes: WNL Musculoskeletal: Yes: WNL Edema: Yes Edema: LLE: 1+, RLE: 1+ Neurological: Yes: Oriented Psychiatric: Yes: Oriented Labs: CBC, BMP 11/30/16 06:00 12/01/16 05:50 INR, PTT INR 1.09 (0.82-1.09) 11/22/16 21:29 - ....Imaging Ultrasound: Report Reviewed Problem List - Problems (1) Acute on chronic systolic CHF (congestive heart failure) Code(s): I50.23 - ACUTE ON CHRONIC SYSTOLIC (CONGESTIVE) HEART FAILURE Assessment/Plan Current Medications Generic Name Dose Route Start Last Admin Trade Name Freq PRN Reason Stop Dose Admin Acetaminophen 650 mg 11/25/16 14:38 11/30/16 19:33 Tylenol - PO 650 mg Q4H PRN Administration FEVER OR PAIN Aspirin 81 mg 11/23/16 10:00 12/01/16 09:31 Asa - PO 81 mg DAILY [facility] Administration Budesonide/Formoterol Fumarate 1 puff 11/23/16 10:00 12/01/16 09:32 Symbicort 80/4.5mcg - IH 1 puff BID [facility] Administration Clopidogrel Bisulfate 75 mg 11/23/16 10:00 12/01/16 09:31 Plavix - PO 75 mg DAILY [facility] Administration Docusate Sodium 100 mg 11/23/16 10:00 12/01/16 09:31 Colace - PO 100 mg BID [facility] Administration Enoxaparin Sodium 40 mg 12/01/16 10:00 12/01/16 09:31 Lovenox - SQ 40 mg DAILY [facility] Administration Furosemide 60 mg 11/30/16 22:00 12/01/16 14:36 Lasix Injection - IVPUSH 60 mg TID [facility] Administration Guaifenesin 10 ml 11/25/16 14:38 11/30/16 21:11 Robitussin - PO 10 ml Q4H PRN Administration COUGH Levothyroxine Sodium 75 mcg 11/23/16 10:30 12/01/16 06:25 Synthroid - PO 75 mcg DAILY@0700 [facility] Administration Lisinopril 2.5 mg 11/23/16 10:00 12/01/16 09:31 Prinivil PO 2.5 mg DAILY [facility] Administration Metoprolol Succinate 25 mg 11/23/16 10:00 12/01/16 09:31 Toprol Xl - PO 25 mg BID [facility] Administration Tiotropium [place] 1 puff 11/29/16 13:00 12/01/16 09:32 Spiriva - IH 1 inh DAILY [facility] Administration 1. dyspnea 2. CHF exacerbation 3. paralyzed hemidiaphragm 4. HTN 5. valvular heart disease 6. azotemia 7. hypothyroid 8. CAD 9. hyponatremia 10. fluid overload Plan - potassium is trending up after aldacotne - will start metolazone - repeat labs in am - monitor weights - cardio follow up - cont with lasix - fluid restrict - monitor bp Dr Bella
--- NOTE | 2016-12-01 15:58 | PN ---
Physical Exam: SUBJECTIVE: Patient seen and examined Patient feeling much improved. She feels as if she is still not at her baseline. She was able to walk further with PT yesterday. She states her weight is improving. OBJECTIVE: Vital Signs Period Temp Pulse Resp BP Sys/Camilo Pulse Ox Last 24 Hr 97.3 F-97.9 F 91-102 19-22 103-118/47-71 96-96 GENERAL: Awake, alert, and fully oriented, in no acute distress on 3L O2 via nasal cannula. HEAD: Normal with no signs of trauma. EYES: Pupils equal, round and reactive to light, extraocular movements intact, sclera anicteric, conjunctiva clear. No lid lag. EARS, NOSE, THROAT: Oropharynx clear without exudates. Moist mucous membranes. NECK: Supple without lymphadenopathy, or masses. LUNGS: Crackles bilateral bases. No accessory muscle use. HEART: Regular rate and rhythm, normal S1 and S2 without murmur, rub or gallop. ABDOMEN: Soft, nontender, not distended, normoactive bowel sounds, no guarding, no rebound, no masses. LOWER EXTREMITIES: 1+ pitting edema jayden. No calf tenderness. NEUROLOGICAL: Normal speech. PSYCHIATRIC: Cooperative. Good eye contact. Appropriate mood and affect. SKIN: Cold, dry, normal turgor, no rashes or lesions noted, normal capillary refill. Laboratory Results - last 24 hr 12/01/16 05:50 Sodium 137 Potassium 5.0 Chloride 93 L Carbon Dioxide 35 H Anion Gap 9 BUN 34 H Creatinine 1.0 Random Glucose 91 Calcium 9.3 Phosphorus 4.2 Magnesium 2.5 H Active Medications Generic Name Dose Route Start Last Admin Trade Name Xavier PRN Reason Stop Dose Admin Acetaminophen 650 mg 11/25/16 14:38 11/30/16 19:33 Tylenol - PO 650 mg Q4H PRN Administration FEVER OR PAIN Aspirin 81 mg 11/23/16 10:00 12/01/16 09:31 Asa - PO 81 mg DAILY [facility] Administration Budesonide/Formoterol Fumarate 1 puff 11/23/16 10:00 12/01/16 09:32 Symbicort 80/4.5mcg - IH 1 puff BID [facility] Administration Clopidogrel Bisulfate 75 mg 11/23/16 10:00 12/01/16 09:31 Plavix - PO 75 mg DAILY [facility] Administration Docusate Sodium 100 mg 11/23/16 10:00 12/01/16 09:31 Colace - PO 100 mg BID [facility] Administration Enoxaparin Sodium 40 mg 12/01/16 10:00 12/01/16 09:31 Lovenox - SQ 40 mg DAILY [facility] Administration Furosemide 60 mg 11/30/16 22:00 12/01/16 14:36 Lasix Injection - IVPUSH 60 mg TID [facility] Administration Guaifenesin 10 ml 11/25/16 14:38 11/30/16 21:11 Robitussin - PO 10 ml Q4H PRN Administration COUGH Levothyroxine Sodium 75 mcg 11/23/16 10:30 12/01/16 06:25 Synthroid - PO 75 mcg DAILY@0700 [facility] Administration Lisinopril 2.5 mg 11/23/16 10:00 12/01/16 09:31 Prinivil PO 2.5 mg DAILY [facility] Administration Metolazone 5 mg 12/01/16 15:15 Zaroxolyn - PO DAILY@0530 [facility] Metoprolol Succinate 25 mg 11/23/16 10:00 12/01/16 09:31 Toprol Xl - PO 25 mg BID [facility] Administration Tiotropium [place] 1 puff 11/29/16 13:00 12/01/16 09:32 Spiriva - IH 1 inh DAILY [facility] Administration ASSESSMENT/PLAN: 81yo F with PMH of CHF, asthma/COPD, afib, s/p CABG, 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 # Acute on Chronic Systolic CHF exacerbation, NYHA class 3 - Continue Lasix 60mg IV TID - 1x dose of aldactone 25 mg po given today - Holding metolazone due to hypotension. Pt at baseline BP - cont. home meds of Lisinopril, Metoprolol - cont. guaifenesin 10 ml po q4 prn - Abiodun stockings- patient refusing - Cardiology Consult, Dr. Ingram - PCP Consult, Dr. Bella - Strict I & O 's - daily wts - Patient may be a candidate for entresto as outpatient - Fluid restriction - daily PT #Hyperkalemia, resolved -will continue to monitor #CAD s/p cabg -2nd troponin increased, 3rd stayed the same, 4th downtrending -No sign of acs -Continue aspirin 81 mg -Continue plavix 75 mg #HTN -Controlled -Will monitor and continue home meds (toporol xl 25 mg po bid, lisinopril 2.5 mg po daily, lasix 60 mg iv tid) # asthma/COPD - cont. 3L O2 nasal cannula - cont. home meds of Symbicort, Spiriva # hypothyroidism - cont. home med of Synthroid 75 mcg po daily # HLD - cont. home med of Zocor # FEN - Fluids: no IVFs indicated - Electrolytes: wnl - Nutrition: potassium/sodium restricted diet # Prophylaxis - Lovenox 40 mg sq daily Dispo: if patient is improving tomorrow, consider D/C Visit type - Emergency Visit Emergency Visit: Yes ED Registration Date: 11/23/16 Care time: The patient presented to the Emergency Department on the above date and was hospitalized for further evaluation of their emergent condition. - New Patient This patient is new to me today: No - Critical Care Critical Care patient: No
[2016-12-01] MEDS: METOLAZONE 5 MG TABLET PO SCH (18:23)
[2016-12-01] MEDS: guaiFENesin 200 MG/10 ML 10 ML UNIT-DOSE CUPS PO PRN (19:30)
[2016-12-02] MEDS: METOLAZONE 5 MG TABLET PO SCH (06:00)
[2016-12-02] MEDS: FUROSEMIDE 40 MG/4 ML INJECTABLE VIAL IVPUSH SCH ×3 (06:28→21:53)
[2016-12-02] MEDS: LEVOTHYROXINE NA 75 MCG TABLET (FP) PO SCH (06:28)
[2016-12-02 08:31] LABS: ALBUMIN 3.5 g/dl (3.4-5.0); ANION GAP 6 (8-16); BILIRUBIN,TOTAL 0.5 mg/dL (0.2-1.0); CALCIUM 8.9 mg/dL (8.5-10.1); CO2 35 mmol/L (21-32); CREATININE 0.8 mg/dL (0.55-1.02); GLUCOSE,RANDOM 91 mg/dL (74-106); SGOT/AST 12 U/L (15-37); SGPT/ALT 19 U/L (12-78); TOT PROT 6.8 g/dl (6.4-8.2)
[2016-12-02 08:32] LABS: ALK PHOS 96 U/L (45-117)
[2016-12-02] MEDS: ASPIRIN 81 MG CHEWABLE TABLETS PO SCH (09:13)
[2016-12-02] MEDS: DOCUSATE SODIUM 100 MG CAPSULE (FP) PO SCH ×2 (09:13→21:53)
[2016-12-02] MEDS: ENOXAPARIN NA (PORCINE) 40 MG/0.4 ML DISP.SYRIN SQ SCH (09:13)
[2016-12-02] MEDS: TIOTROPIUM BROMIDE 18 MCG/INH (DEVICE W/ 5 CAPSULES) IH SCH (09:13)
[2016-12-02] MEDS: CLOPIDOGREL BISULFATE 75 MG TABLET (FP) PO SCH (09:13)
[2016-12-02] MEDS: METOPROLOL SUCCINATE 25 MG TAB.SR.24H (FP) PO SCH ×2 (09:14→21:39)
[2016-12-02] MEDS: BUDESONIDE/FORMETEROL FUMARATE 80/4.5 mcg INHALER IH SCH ×2 (09:14→21:56)
[2016-12-02] MEDS: LISINOPRIL 5 MG TABLET (FP) PO SCH (09:48)
--- NOTE | 2016-12-02 10:45 | PN ---
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 No change from baseline in difficulty breathing at this time by complains of orthopnea and unintentional weight gain of 8lbs since her last discharge despite 80mg Lasix daily. - Current Medication List Current Medications: Active Medications Acetaminophen (Tylenol -) 650 mg PO Q4H PRN PRN Reason: FEVER OR PAIN Last Admin: 11/30/16 19:33 Dose: 650 mg Aspirin (Asa -) 81 mg PO DAILY [facility] Last Admin: 12/02/16 09:13 Dose: 81 mg Budesonide/Formoterol Fumarate (Symbicort 80/4.5mcg -) 1 puff IH BID [facility] Last Admin: 12/02/16 09:14 Dose: 1 puff Clopidogrel Bisulfate (Plavix -) 75 mg PO DAILY [facility] Last Admin: 12/02/16 09:13 Dose: 75 mg Docusate Sodium (Colace -) 100 mg PO BID [facility] Last Admin: 12/02/16 09:13 Dose: 100 mg Enoxaparin Sodium (Lovenox -) 40 mg SQ DAILY [facility] Last Admin: 12/02/16 09:13 Dose: 40 mg Furosemide (Lasix Injection -) 60 mg IVPUSH TID [facility] Last Admin: 12/02/16 06:28 Dose: 60 mg Guaifenesin (Robitussin -) 10 ml PO Q4H PRN PRN Reason: COUGH Last Admin: 12/01/16 19:30 Dose: 10 ml Levothyroxine Sodium (Synthroid -) 75 mcg PO DAILY@0700 [facility] Last Admin: 12/02/16 06:28 Dose: 75 mcg Lisinopril (Prinivil) 2.5 mg PO DAILY [facility] Last Admin: 12/02/16 09:48 Dose: Not Given Metolazone (Zaroxolyn -) 5 mg PO DAILY@0530 [facility] Last Admin: 12/02/16 06:00 Dose: 5 mg Metoprolol Succinate (Toprol Xl -) 25 mg PO BID [facility] Last Admin: 12/02/16 09:14 Dose: 25 mg Tiotropium [place] (Spiriva -) 1 puff IH DAILY [facility] Last Admin: 12/02/16 09:13 Dose: 1 puff - Objective Vital Signs: Vital Signs Temperature 97.8 F 12/02/16 09:00 Pulse Rate 88 12/02/16 09:00 Respiratory Rate 22 12/02/16 09:00 Blood Pressure 94/54 12/02/16 09:00 O2 Sat by Pulse Oximetry (%) 96 12/02/16 09:00 Eyes: Yes: WNL, Conjunctiva Clear, EOM Intact HENT: Yes: WNL, Atraumatic, Normocephalic Neck: Yes: WNL, Supple, Trachea Midline Cardiovascular: Yes: WNL, Regular Rate and Rhythm Respiratory: Yes: WNL, Regular, CTA Bilaterally Gastrointestinal: Yes: WNL, Normal Bowel Sounds Genitourinary: Yes: WNL Musculoskeletal: Yes: WNL Extremities: Yes: WNL Edema: Yes Integumentary: Yes: WNL Neurological: Yes: WNL, Alert, Oriented ...Motor Strength: WNL Psychiatric: Yes: WNL Labs: CBC, BMP 11/30/16 06:00 12/02/16 05:45 INR, PTT INR 1.09 (0.82-1.09) 11/22/16 21:29 Assessment/Plan - Problems (1) Nonsustained ventricular tachycardia Assessment/Plan: Increase metoprolol ER as tolerated (BP; symptoms). Code(s): I47.2 - VENTRICULAR TACHYCARDIA (2) Shortness of breath Code(s): R06.02 - SHORTNESS OF BREATH (3) Systolic and diastolic CHF w/reduced LV function, NYHA class 4 Assessment/Plan: On beta blockers and lisinopril. Aldcactone was started. On furosemide; f/u Is and Os, daily weight. Code(s): I50.40 - UNSP COMBINED SYSTOLIC AND DIASTOLIC (CONGESTIVE) HRT FAIL (4) Anxiety 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 Code(s): F41.0 - PANIC DISORDER WITHOUT AGORAPHOBIA (5) Aortic valve replaced Code(s): Z95.2 - PRESENCE OF PROSTHETIC HEART VALVE (6) CAD (coronary artery disease) Code(s): I25.10 - ATHSCL HEART DISEASE OF [place] CORONARY ARTERY W/O ANG PCTRS (7) COPD bronchitis Code(s): J44.9 - CHRONIC OBSTRUCTIVE PULMONARY DISEASE, UNSPECIFIED (8) Diabetes Code(s): E11.9 - TYPE 2 DIABETES MELLITUS WITHOUT COMPLICATIONS (9) Hx of CABG Code(s): Z95.1 - PRESENCE OF AORTOCORONARY BYPASS GRAFT (10) Hyperlipidemia Code(s): E78.5 - HYPERLIPIDEMIA, UNSPECIFIED (11) Hypertension Code(s): I10 - ESSENTIAL (PRIMARY) HYPERTENSION (12) Hypothyroidism Code(s): E03.9 - HYPOTHYROIDISM, UNSPECIFIED (13) ICD (implantable cardioverter-defibrillator) in place Code(s): Z95.810 - PRESENCE OF AUTOMATIC (IMPLANTABLE) CARDIAC DEFIBRILLATOR (14) Sleep apnea in adult Code(s): G47.33 - OBSTRUCTIVE SLEEP APNEA (ADULT) (PEDIATRIC)
--- NOTE | 2016-12-02 10:57 | PN ---
Physical Exam: SUBJECTIVE: Patient seen and examined No acute events overnight. Patient feels as if she is getting better, but not completely back to her baseline. OBJECTIVE: Vital Signs Period Temp Pulse Resp BP Sys/Camilo Pulse Ox Last 24 Hr 97.6 F-97.8 F 61-94 20-22 82-111/46-70 96-97 GENERAL: Awake, alert, and fully oriented, in no acute distress on 3L O2 via nasal cannula. HEAD: Normal with no signs of trauma. EYES: Pupils equal, round and reactive to light, extraocular movements intact, sclera anicteric, conjunctiva clear. No lid lag. EARS, NOSE, THROAT: Oropharynx clear without exudates. Moist mucous membranes. NECK: Supple without lymphadenopathy, or masses. LUNGS: Mild crackles @ bilateral bases. No accessory muscle use. HEART: Regular rate and rhythm, normal S1 and S2 without murmur, rub or gallop. ABDOMEN: Soft, nontender, not distended, normoactive bowel sounds, no guarding, no rebound, no masses. LOWER EXTREMITIES: 1-2+ pitting edema jayden. No calf tenderness. NEUROLOGICAL: Normal speech. PSYCHIATRIC: Cooperative. Good eye contact. Appropriate mood and affect. SKIN: Cold, dry, normal turgor, no rashes or lesions noted, normal capillary refill. Laboratory Results - last 24 hr 12/02/16 05:45 Sodium 136 Potassium 4.4 Chloride 95 L Carbon Dioxide 35 H Anion Gap 6 L BUN 33 H Creatinine 0.8 Creat Clearance w eGFR > 60 Random Glucose 91 Calcium 8.9 Total Bilirubin 0.5 AST 12 L ALT 19 D Alkaline Phosphatase 96 Total Protein 6.8 Albumin 3.5 Active Medications Generic Name Dose Route Start Last Admin Trade Name Freq PRN Reason Stop Dose Admin Acetaminophen 650 mg 11/25/16 14:38 11/30/16 19:33 Tylenol - PO 650 mg Q4H PRN Administration FEVER OR PAIN Aspirin 81 mg 11/23/16 10:00 12/02/16 09:13 Asa - PO 81 mg DAILY MAGO Administration Budesonide/Formoterol Fumarate 1 puff 11/23/16 10:00 12/02/16 09:14 Symbicort 80/4.5mcg - IH 1 puff BID MAGO Administration Clopidogrel Bisulfate 75 mg 11/23/16 10:00 12/02/16 09:13 Plavix - PO 75 mg DAILY MAGO Administration Docusate Sodium 100 mg 11/23/16 10:00 12/02/16 09:13 Colace - PO 100 mg BID MAGO Administration Enoxaparin Sodium 40 mg 12/01/16 10:00 12/02/16 09:13 Lovenox - SQ 40 mg DAILY MAGO Administration Furosemide 60 mg 11/30/16 22:00 12/02/16 06:28 Lasix Injection - IVPUSH 60 mg TID MAGO Administration Guaifenesin 10 ml 11/25/16 14:38 12/01/16 19:30 Robitussin - PO 10 ml Q4H PRN Administration COUGH Levothyroxine Sodium 75 mcg 11/23/16 10:30 12/02/16 06:28 Synthroid - PO 75 mcg DAILY@0700 MAGO Administration Lisinopril 2.5 mg 11/23/16 10:00 12/02/16 09:48 Prinivil PO Not Given DAILY MAGO Metolazone 5 mg 12/01/16 15:15 12/02/16 06:00 Zaroxolyn - PO 5 mg DAILY@0530 MAGO Administration Metoprolol Succinate 25 mg 11/23/16 10:00 12/02/16 09:14 Toprol Xl - PO 25 mg BID MAGO Administration Tiotropium [place] 1 puff 11/29/16 13:00 12/02/16 09:13 Spiriva - IH 1 puff DAILY MAGO Administration ASSESSMENT/PLAN: 81yo F with PMH of CHF, asthma/COPD, afib, s/p CABG, 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 # Acute on Chronic Systolic CHF exacerbation, NYHA class 3 - Continue Lasix 60mg IV TID - Started on metalozone. Monitor BP. Will increase as tolerated. - cont. home meds of Lisinopril, Metoprolol - cont. guaifenesin 10 ml po q4 prn - Abiodun stockings- patient refusing - Cardiology Consult, Dr. Ingram - PCP Consult, Dr. Bella - Strict I & O 's - daily wts - Patient may be a candidate for entresto as outpatient - Fluid restriction - daily PT #Hyperkalemia, resolved -will continue to monitor #CAD s/p cabg -2nd troponin increased, 3rd stayed the same, 4th downtrending -No sign of acs -Continue aspirin 81 mg -Continue plavix 75 mg #HTN -Controlled -Will monitor and continue home meds (toporol xl 25 mg po bid, lisinopril 2.5 mg po daily, lasix 60 mg iv tid) # asthma/COPD - cont. 3L O2 nasal cannula - cont. home meds of Symbicort, Spiriva # hypothyroidism - cont. home med of Synthroid 75 mcg po daily # HLD - cont. home med of Zocor # FEN - Fluids: no IVFs indicated - Electrolytes: wnl - Nutrition: potassium/sodium restricted diet # Prophylaxis - Lovenox 40 mg sq daily Visit type - Emergency Visit Emergency Visit: Yes ED Registration Date: 11/23/16 Care time: The patient presented to the Emergency Department on the above date and was hospitalized for further evaluation of their emergent condition. - New Patient This patient is new to me today: No - Critical Care Critical Care patient: No
--- NOTE | 2016-12-02 13:07 | PN ---
Teaching Attending Note Name of Resident: Lance Walters ATTENDING PHYSICIAN STATEMENT I saw and evaluated the patient. I reviewed the resident's note and discussed the case with the resident. I agree with the resident's findings and plan as documented. SUBJECTIVE:states breathing has improved. denies CP, SOB, fever, chills, N/V/C/D OBJECTIVE: Last Vital Signs Temp Pulse Resp BP Pulse Ox 97.8 F 88 22 94/54 96 12/02/16 09:00 12/02/16 09:00 12/02/16 09:00 12/02/16 09:00 12/02/16 09:00 Intake & Output 11/29/16 11/30/16 12/01/16 12/02/16 23:59 23:59 23:59 23:59 Intake Total 1090 560 840 240 Output Total 297 205 4735 95 Balance 700 60 -160 145 Weight 171 lb 8 oz 170 lb 169 lb 5 oz General NAD CV S1 S2 RRR Lungs CTA B/L no wheezing/rales/rhonchi Extremities 2+ pitting edema B/L LE ASSESSMENT AND PLAN: 81yo F with PMH systolic CHF, CAD s/p CABG +PPM AVR, HTN, 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 Acute on chronic systolic CHF exacerbation- continues to slowly improve. started on metalozone in the evening. BP appears to be holding. spirloactone held due to potassium trending up. will monitor closely on metalozone. will attempt to increase as tolerated by BP. on lasix 60mg TID IVP. cardio and renal on board. strict I&O, daily weights, fluid restriction 2. sustained Vtach-continues to have NSVT at night. no symptoms. unable to titrate up betablocker due to BP. will cont to monitor. Mg level elevated 3. Hyperkalemia- resolved. on low dose acei 4. CAD s/p CABG with PPM- no signs of ACS. 5. HTN- controlled 6. 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 cont management 7. DVT ppx- hep sq
--- NOTE | 2016-12-02 16:12 | PN ---
Progress Note, Physician History of Present Illness: Pt seen and examined at bedside. She is awake and alert. She feels that her breathing is improving slowly. - Current Medication List Current Medications: Active Medications Acetaminophen (Tylenol -) 650 mg PO Q4H PRN PRN Reason: FEVER OR PAIN Last Admin: 11/30/16 19:33 Dose: 650 mg Aspirin (Asa -) 81 mg PO DAILY [facility] Last Admin: 12/02/16 09:13 Dose: 81 mg Budesonide/Formoterol Fumarate (Symbicort 80/4.5mcg -) 1 puff IH BID [facility] Last Admin: 12/02/16 09:14 Dose: 1 puff Clopidogrel Bisulfate (Plavix -) 75 mg PO DAILY [facility] Last Admin: 12/02/16 09:13 Dose: 75 mg Docusate Sodium (Colace -) 100 mg PO BID [facility] Last Admin: 12/02/16 09:13 Dose: 100 mg Enoxaparin Sodium (Lovenox -) 40 mg SQ DAILY [facility] Last Admin: 12/02/16 09:13 Dose: 40 mg Furosemide (Lasix Injection -) 60 mg IVPUSH TID [facility] Last Admin: 12/02/16 13:55 Dose: 60 mg Guaifenesin (Robitussin -) 10 ml PO Q4H PRN PRN Reason: COUGH Last Admin: 12/01/16 19:30 Dose: 10 ml Levothyroxine Sodium (Synthroid -) 75 mcg PO DAILY@0700 [facility] Last Admin: 12/02/16 06:28 Dose: 75 mcg Lisinopril (Prinivil) 2.5 mg PO DAILY [facility] Last Admin: 12/02/16 09:48 Dose: Not Given Metolazone (Zaroxolyn -) 5 mg PO DAILY@0530 [facility] Last Admin: 12/02/16 06:00 Dose: 5 mg Metoprolol Succinate (Toprol Xl -) 25 mg PO BID [facility] Last Admin: 12/02/16 09:14 Dose: 25 mg Tiotropium [place] (Spiriva -) 1 puff IH DAILY [facility] Last Admin: 12/02/16 09:13 Dose: 1 puff - Objective Vital Signs: Vital Signs Temperature 97.8 F 12/02/16 14:07 Pulse Rate 87 12/02/16 14:07 Respiratory Rate 22 12/02/16 09:00 Blood Pressure 112/56 12/02/16 14:07 O2 Sat by Pulse Oximetry (%) 96 12/02/16 09:00 Constitutional: Yes: Calm Eyes: Yes: Conjunctiva Clear HENT: Yes: Atraumatic Cardiovascular: Yes: S1, S2 Respiratory: Yes: On Nasal O2 Gastrointestinal: Yes: WNL Genitourinary: Yes: WNL Musculoskeletal: Yes: WNL Edema: Yes Edema: LLE: 1+, RLE: 1+ Neurological: Yes: Oriented Psychiatric: Yes: Oriented Labs: CBC, BMP 11/30/16 06:00 12/02/16 05:45 INR, PTT INR 1.09 (0.82-1.09) 11/22/16 21:29 Problem List - Problems (1) Acute on chronic systolic CHF (congestive heart failure) Code(s): I50.23 - ACUTE ON CHRONIC SYSTOLIC (CONGESTIVE) HEART FAILURE Assessment/Plan Current Medications Generic Name Dose Route Start Last Admin Trade Name Freq PRN Reason Stop Dose Admin Acetaminophen 650 mg 11/25/16 14:38 11/30/16 19:33 Tylenol - PO 650 mg Q4H PRN Administration FEVER OR PAIN Aspirin 81 mg 11/23/16 10:00 12/02/16 09:13 Asa - PO 81 mg DAILY [facility]O Administration Budesonide/Formoterol Fumarate 1 puff 11/23/16 10:00 12/02/16 09:14 Symbicort 80/4.5mcg - IH 1 puff BID [facility]O Administration Clopidogrel Bisulfate 75 mg 11/23/16 10:00 12/02/16 09:13 Plavix - PO 75 mg DAILY [facility] Administration Docusate Sodium 100 mg 11/23/16 10:00 12/02/16 09:13 Colace - PO 100 mg BID [facility]O Administration Enoxaparin Sodium 40 mg 12/01/16 10:00 12/02/16 09:13 Lovenox - SQ 40 mg DAILY [facility] Administration Furosemide 60 mg 11/30/16 22:00 12/02/16 13:55 Lasix Injection - IVPUSH 60 mg TID [facility]O Administration Guaifenesin 10 ml 11/25/16 14:38 12/01/16 19:30 Robitussin - PO 10 ml Q4H PRN Administration COUGH Levothyroxine Sodium 75 mcg 11/23/16 10:30 12/02/16 06:28 Synthroid - PO 75 mcg DAILY@0700 [facility]O Administration Lisinopril 2.5 mg 11/23/16 10:00 12/02/16 09:48 Prinivil PO Not Given DAILY [facility]O Metolazone 5 mg 12/01/16 15:15 12/02/16 06:00 Zaroxolyn - PO 5 mg DAILY@0530 [facility]O Administration Metoprolol Succinate 25 mg 11/23/16 10:00 12/02/16 09:14 Toprol Xl - PO 25 mg BID [facility]O Administration Tiotropium [place] 1 puff 11/29/16 13:00 12/02/16 09:13 Spiriva - IH 1 puff DAILY [facility]O Administration 1. dyspnea 2. CHF exacerbation 3. paralyzed hemidiaphragm 4. HTN 5. valvular heart disease 6. azotemia 7. hypothyroid 8. CAD 9. hyponatremia 10. fluid overload Plan - cont with lasix and metolazone - repeat labs in am - daily weights - cardio follow up - fluid restrict - monitor bp Dr Bella
[2016-12-03] MEDS: METOLAZONE 5 MG TABLET PO SCH (06:44)
[2016-12-03] MEDS: LEVOTHYROXINE NA 75 MCG TABLET (FP) PO SCH (06:44)
--- NOTE | 2016-12-03 06:46 | PN ---
Progress Note (short form) - Note Progress Note: breathing continues to improve. not at baseline. able to walk further without dyspnea. denies Cp, fever, chills, cough, N/V/C?D Current Medications Generic Name Dose Route Start Last Admin Trade Name Freq PRN Reason Stop Dose Admin Acetaminophen 650 mg 11/25/16 14:38 11/30/16 19:33 Tylenol - PO 650 mg Q4H PRN Administration FEVER OR PAIN Aspirin 81 mg 11/23/16 10:00 12/02/16 09:13 Asa - PO 81 mg DAILY [facility]O Administration Budesonide/Formoterol Fumarate 1 puff 11/23/16 10:00 12/02/16 21:56 Symbicort 80/4.5mcg - IH 1 puff BID [facility]O Administration Clopidogrel Bisulfate 75 mg 11/23/16 10:00 12/02/16 09:13 Plavix - PO 75 mg DAILY [facility] Administration Docusate Sodium 100 mg 11/23/16 10:00 12/02/16 21:53 Colace - PO 100 mg BID [facility]O Administration Enoxaparin Sodium 40 mg 12/01/16 10:00 12/02/16 09:13 Lovenox - SQ 40 mg DAILY [facility] Administration Furosemide 60 mg 11/30/16 22:00 12/02/16 21:53 Lasix Injection - IVPUSH 60 mg TID [facility]O Administration Guaifenesin 10 ml 11/25/16 14:38 12/01/16 19:30 Robitussin - PO 10 ml Q4H PRN Administration COUGH Levothyroxine Sodium 75 mcg 11/23/16 10:30 12/02/16 06:28 Synthroid - PO 75 mcg DAILY@0700 [facility] Administration Lisinopril 2.5 mg 11/23/16 10:00 12/02/16 09:48 Prinivil PO Not Given DAILY [facility]O Metolazone 5 mg 12/01/16 15:15 12/02/16 06:00 Zaroxolyn - PO 5 mg DAILY@0530 [facility]O Administration Metoprolol Succinate 25 mg 11/23/16 10:00 12/02/16 21:39 Toprol Xl - PO Not Given BID [facility] Tiotropium [place] 1 puff 11/29/16 13:00 12/02/16 09:13 Spiriva - IH 1 puff DAILY [facility]O Administration Last Vital Signs Temp Pulse Resp BP Pulse Ox 97.6 F 89 20 107/46 99 12/03/16 02:00 12/03/16 06:00 12/03/16 06:00 12/03/16 06:00 12/02/16 20:28 Intake & Output 11/30/16 12/01/16 12/02/16 12/03/16 23:59 23:59 23:59 23:59 Intake Total 560 840 840 Output Total 500 1000 395 300 Balance 60 -160 445 -300 Weight 170 lb 169 lb 5 oz 166 lb General NAD CV S1 S2 RRR Lungs Crackles L base Extremities 2+ pitting edema B/L LE CMP Sodium 136 mmol/L (136-145) 12/02/16 05:45 Potassium 4.4 mmol/L (3.5-5.1) 12/02/16 05:45 Chloride 95 mmol/L (98-107) L 12/02/16 05:45 Carbon Dioxide 35 mmol/L (21-32) H 12/02/16 05:45 Anion Gap 6 (8-16) L 12/02/16 05:45 BUN 33 mg/dL (7-18) H 12/02/16 05:45 Creatinine 0.8 mg/dL (0.55-1.02) 12/02/16 05:45 Creat Clearance w eGFR > 60 (>60) 12/02/16 05:45 Calcium 8.9 mg/dL (8.5-10.1) 12/02/16 05:45 Total Bilirubin 0.5 mg/dL (0.2-1.0) 12/02/16 05:45 AST 12 U/L (15-37) L 12/02/16 05:45 ALT 19 U/L (12-78) D 12/02/16 05:45 Alkaline Phosphatase 96 U/L (45-117) 12/02/16 05:45 Total Protein 6.8 g/dl (6.4-8.2) 12/02/16 05:45 Albumin 3.5 g/dl (3.4-5.0) 12/02/16 05:45 ASSESSMENT AND PLAN: 81yo F with PMH systolic CHF, CAD s/p CABG +PPM AVR, HTN, 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 Acute on chronic systolic CHF exacerbation-good diuresis yesterday. decrease in 3 pounds will cont current management. consider switching lasix over to po in next 24-48H pending on improvement. cont metaolozone. cardio and renal on board. strict I&O, daily weights, fluid restriction 2. sustained Vtach-continues to have NSVT at night. no symptoms. unable to titrate up betablocker due to BP. will cont to monitor. Mg level elevated 3. Hyperkalemia- resolved. on low dose acei 4. CAD s/p CABG with PPM- no signs of ACS. 5. HTN- controlled 6. 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 cont management 7. DVT ppx- hep sq Visit type - Emergency Visit Emergency Visit: Yes ED Registration Date: 11/23/16 Care time: The patient presented to the Emergency Department on the above date and was hospitalized for further evaluation of their emergent condition. - New Patient This patient is new to me today: No - Critical Care Critical Care patient: No - Discharge Referral Referred to [facility] Med P.C.: No
[2016-12-03] MEDS: FUROSEMIDE 40 MG/4 ML INJECTABLE VIAL IVPUSH SCH ×3 (06:47→21:42)
[2016-12-03 08:21] LABS: ALBUMIN 3.5 g/dl (3.4-5.0); ALK PHOS 98 U/L (45-117); ANION GAP 10 (8-16); BILIRUBIN,TOTAL 0.6 mg/dL (0.2-1.0); CALCIUM 9.6 mg/dL (8.5-10.1); CO2 35 mmol/L (21-32); GLUCOSE,RANDOM 83 mg/dL (74-106); SGOT/AST 15 U/L (15-37); SGPT/ALT 17 U/L (12-78); TOT PROT 6.8 g/dl (6.4-8.2)
--- NOTE | 2016-12-03 08:35 | PN ---
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 No change from baseline in difficulty breathing at this time by complains of orthopnea and unintentional weight gain of 8lbs since her last discharge despite 80mg Lasix daily. - Current Medication List Current Medications: Active Medications Acetaminophen (Tylenol -) 650 mg PO Q4H PRN PRN Reason: FEVER OR PAIN Last Admin: 11/30/16 19:33 Dose: 650 mg Aspirin (Asa -) 81 mg PO DAILY [facility] Last Admin: 12/02/16 09:13 Dose: 81 mg Budesonide/Formoterol Fumarate (Symbicort 80/4.5mcg -) 1 puff IH BID [facility] Last Admin: 12/02/16 21:56 Dose: 1 puff Clopidogrel Bisulfate (Plavix -) 75 mg PO DAILY [facility] Last Admin: 12/02/16 09:13 Dose: 75 mg Docusate Sodium (Colace -) 100 mg PO BID [facility] Last Admin: 12/02/16 21:53 Dose: 100 mg Enoxaparin Sodium (Lovenox -) 40 mg SQ DAILY [facility] Last Admin: 12/02/16 09:13 Dose: 40 mg Furosemide (Lasix Injection -) 60 mg IVPUSH TID [facility] Last Admin: 12/03/16 06:47 Dose: 60 mg Guaifenesin (Robitussin -) 10 ml PO Q4H PRN PRN Reason: COUGH Last Admin: 12/01/16 19:30 Dose: 10 ml Levothyroxine Sodium (Synthroid -) 75 mcg PO DAILY@0700 [facility] Last Admin: 12/03/16 06:44 Dose: 75 mcg Lisinopril (Prinivil) 2.5 mg PO DAILY [facility] Last Admin: 12/02/16 09:48 Dose: Not Given Metolazone (Zaroxolyn -) 5 mg PO DAILY@0530 [facility] Last Admin: 12/03/16 06:44 Dose: 5 mg Metoprolol Succinate (Toprol Xl -) 25 mg PO BID [facility] Last Admin: 12/02/16 21:39 Dose: Not Given Tiotropium [place] (Spiriva -) 1 puff IH DAILY [facility] Last Admin: 12/02/16 09:13 Dose: 1 puff - Objective Vital Signs: Vital Signs Temperature 97.6 F 12/03/16 02:00 Pulse Rate 89 12/03/16 06:00 Respiratory Rate 20 12/03/16 06:00 Blood Pressure 107/46 12/03/16 06:00 O2 Sat by Pulse Oximetry (%) 99 12/02/16 20:28 Eyes: Yes: WNL, Conjunctiva Clear, EOM Intact HENT: Yes: WNL, Atraumatic, Normocephalic Neck: Yes: WNL, Supple, Trachea Midline Cardiovascular: Yes: WNL, Regular Rate and Rhythm Respiratory: Yes: WNL, Regular, CTA Bilaterally Gastrointestinal: Yes: WNL, Normal Bowel Sounds Genitourinary: Yes: WNL Musculoskeletal: Yes: WNL Extremities: Yes: WNL Edema: Yes Integumentary: Yes: WNL Neurological: Yes: WNL, Alert, Oriented ...Motor Strength: WNL Psychiatric: Yes: WNL Labs: CBC, BMP 11/30/16 06:00 12/03/16 06:00 INR, PTT INR 1.09 (0.82-1.09) 11/22/16 21:29 Assessment/Plan - Problems (1) Nonsustained ventricular tachycardia Assessment/Plan: Increase metoprolol ER as tolerated (BP; symptoms). Code(s): I47.2 - VENTRICULAR TACHYCARDIA (2) Shortness of breath Code(s): R06.02 - SHORTNESS OF BREATH (3) Systolic and diastolic CHF w/reduced LV function, NYHA class 4 Assessment/Plan: On beta blockers and lisinopril. Aldcactone was started. On furosemide; f/u Is and Os, daily weight. Code(s): I50.40 - UNSP COMBINED SYSTOLIC AND DIASTOLIC (CONGESTIVE) HRT FAIL (4) Anxiety 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 Code(s): F41.0 - PANIC DISORDER WITHOUT AGORAPHOBIA (5) Aortic valve replaced Code(s): Z95.2 - PRESENCE OF PROSTHETIC HEART VALVE (6) CAD (coronary artery disease) Code(s): I25.10 - ATHSCL HEART DISEASE OF [place] CORONARY ARTERY W/O ANG PCTRS (7) COPD bronchitis Code(s): J44.9 - CHRONIC OBSTRUCTIVE PULMONARY DISEASE, UNSPECIFIED (8) Diabetes Code(s): E11.9 - TYPE 2 DIABETES MELLITUS WITHOUT COMPLICATIONS (9) Hx of CABG Code(s): Z95.1 - PRESENCE OF AORTOCORONARY BYPASS GRAFT (10) Hyperlipidemia Code(s): E78.5 - HYPERLIPIDEMIA, UNSPECIFIED (11) Hypertension Code(s): I10 - ESSENTIAL (PRIMARY) HYPERTENSION (12) Hypothyroidism Code(s): E03.9 - HYPOTHYROIDISM, UNSPECIFIED (13) ICD (implantable cardioverter-defibrillator) in place Code(s): Z95.810 - PRESENCE OF AUTOMATIC (IMPLANTABLE) CARDIAC DEFIBRILLATOR (14) Sleep apnea in adult Code(s): G47.33 - OBSTRUCTIVE SLEEP APNEA (ADULT) (PEDIATRIC)
[2016-12-03] MEDS: DOCUSATE SODIUM 100 MG CAPSULE (FP) PO SCH ×2 (09:45→21:42)
[2016-12-03] MEDS: ENOXAPARIN NA (PORCINE) 40 MG/0.4 ML DISP.SYRIN SQ SCH (09:45)
[2016-12-03] MEDS: METOPROLOL SUCCINATE 25 MG TAB.SR.24H (FP) PO SCH ×2 (09:47→21:43)
[2016-12-03] MEDS: LISINOPRIL 5 MG TABLET (FP) PO SCH (09:47)
[2016-12-03] MEDS: ASPIRIN 81 MG CHEWABLE TABLETS PO SCH (09:47)
[2016-12-03] MEDS: CLOPIDOGREL BISULFATE 75 MG TABLET (FP) PO SCH (09:47)
[2016-12-03] MEDS: BUDESONIDE/FORMETEROL FUMARATE 80/4.5 mcg INHALER IH SCH ×2 (09:50→21:43)
[2016-12-03] MEDS: TIOTROPIUM BROMIDE 18 MCG/INH (DEVICE W/ 5 CAPSULES) IH SCH (09:50)
--- NOTE | 2016-12-03 13:07 | PN ---
Progress Note, Physician History of Present Illness: Pt seen and examined at bedside. She is awake and alert. - Current Medication List Current Medications: Active Medications Acetaminophen (Tylenol -) 650 mg PO Q4H PRN PRN Reason: FEVER OR PAIN Last Admin: 11/30/16 19:33 Dose: 650 mg Aspirin (Asa -) 81 mg PO DAILY [facility] Last Admin: 12/03/16 09:47 Dose: 81 mg Budesonide/Formoterol Fumarate (Symbicort 80/4.5mcg -) 1 puff IH BID [facility] Last Admin: 12/03/16 09:50 Dose: 1 puff Clopidogrel Bisulfate (Plavix -) 75 mg PO DAILY [facility] Last Admin: 12/03/16 09:47 Dose: 75 mg Docusate Sodium (Colace -) 100 mg PO BID [facility] Last Admin: 12/03/16 09:45 Dose: 100 mg Enoxaparin Sodium (Lovenox -) 40 mg SQ DAILY [facility] Last Admin: 12/03/16 09:45 Dose: 40 mg Furosemide (Lasix Injection -) 60 mg IVPUSH TID [facility] Last Admin: 12/03/16 06:47 Dose: 60 mg Guaifenesin (Robitussin -) 10 ml PO Q4H PRN PRN Reason: COUGH Last Admin: 12/01/16 19:30 Dose: 10 ml Levothyroxine Sodium (Synthroid -) 75 mcg PO DAILY@0700 [facility] Last Admin: 12/03/16 06:44 Dose: 75 mcg Lisinopril (Prinivil) 2.5 mg PO DAILY [facility] Last Admin: 12/03/16 09:47 Dose: 2.5 mg Metolazone (Zaroxolyn -) 5 mg PO DAILY@0530 [facility] Last Admin: 12/03/16 06:44 Dose: 5 mg Metoprolol Succinate (Toprol Xl -) 25 mg PO BID [facility] Last Admin: 12/03/16 09:47 Dose: 25 mg Tiotropium [place] (Spiriva -) 1 puff IH DAILY [facility] Last Admin: 12/03/16 09:50 Dose: 1 puff - Objective Vital Signs: Vital Signs Temperature 98.2 F 12/03/16 10:00 Pulse Rate 94 H 12/03/16 10:00 Respiratory Rate 20 12/03/16 10:00 Blood Pressure 116/45 12/03/16 10:00 O2 Sat by Pulse Oximetry (%) 96 12/03/16 10:00 Constitutional: Yes: Calm Eyes: Yes: Conjunctiva Clear HENT: Yes: Atraumatic Neck: Yes: Supple Cardiovascular: Yes: S1, S2 Respiratory: Yes: CTA Bilaterally, On Nasal O2 Gastrointestinal: Yes: Soft Edema: Yes Edema: LLE: 1+, RLE: 1+ Neurological: Yes: Oriented Psychiatric: Yes: Oriented Labs: CBC, BMP 11/30/16 06:00 12/03/16 06:00 INR, PTT INR 1.09 (0.82-1.09) 11/22/16 21:29 Problem List - Problems (1) Acute on chronic systolic CHF (congestive heart failure) Code(s): I50.23 - ACUTE ON CHRONIC SYSTOLIC (CONGESTIVE) HEART FAILURE Assessment/Plan Current Medications Generic Name Dose Route Start Last Admin Trade Name Freq PRN Reason Stop Dose Admin Acetaminophen 650 mg 11/25/16 14:38 11/30/16 19:33 Tylenol - PO 650 mg Q4H PRN Administration FEVER OR PAIN Aspirin 81 mg 11/23/16 10:00 12/03/16 09:47 Asa - PO 81 mg DAILY [facility] Administration Budesonide/Formoterol Fumarate 1 puff 11/23/16 10:00 12/03/16 09:50 Symbicort 80/4.5mcg - IH 1 puff BID [facility] Administration Clopidogrel Bisulfate 75 mg 11/23/16 10:00 12/03/16 09:47 Plavix - PO 75 mg DAILY [facility] Administration Docusate Sodium 100 mg 11/23/16 10:00 12/03/16 09:45 Colace - PO 100 mg BID [facility] Administration Enoxaparin Sodium 40 mg 12/01/16 10:00 12/03/16 09:45 Lovenox - SQ 40 mg DAILY [facility] Administration Furosemide 60 mg 11/30/16 22:00 12/03/16 06:47 Lasix Injection - IVPUSH 60 mg TID [facility] Administration Guaifenesin 10 ml 11/25/16 14:38 12/01/16 19:30 Robitussin - PO 10 ml Q4H PRN Administration COUGH Levothyroxine Sodium 75 mcg 11/23/16 10:30 12/03/16 06:44 Synthroid - PO 75 mcg DAILY@0700 [facility] Administration Lisinopril 2.5 mg 11/23/16 10:00 12/03/16 09:47 Prinivil PO 2.5 mg DAILY [facility] Administration Metolazone 5 mg 12/01/16 15:15 12/03/16 06:44 Zaroxolyn - PO 5 mg DAILY@0530 [facility] Administration Metoprolol Succinate 25 mg 11/23/16 10:00 12/03/16 09:47 Toprol Xl - PO 25 mg BID [facility] Administration Tiotropium [place] 1 puff 11/29/16 13:00 12/03/16 09:50 Spiriva - IH 1 puff DAILY [facility] Administration 1. dyspnea 2. CHF exacerbation 3. paralyzed hemidiaphragm 4. HTN 5. valvular heart disease 6. azotemia 7. hypothyroid 8. CAD 9. hyponatremia 10. fluid overload Plan - pt down to 166 - cont lasix and metolazone - daily weights - fluid restrict - monitor bp Dr Bella
[2016-12-03] MEDS: guaiFENesin 200 MG/10 ML 10 ML UNIT-DOSE CUPS PO PRN (21:48)
[2016-12-04] MEDS: METOLAZONE 5 MG TABLET PO SCH (05:18)
[2016-12-04] MEDS: LEVOTHYROXINE NA 75 MCG TABLET (FP) PO SCH (06:19)
[2016-12-04] MEDS: FUROSEMIDE 40 MG/4 ML INJECTABLE VIAL IVPUSH SCH ×3 (06:19→21:43)
[2016-12-04 08:30] LABS: ANION GAP 10 (8-16); CALCIUM 9.6 mg/dL (8.5-10.1); CO2 38 mmol/L (21-32); CREATININE 1.1 mg/dL (0.55-1.02); GLUCOSE,RANDOM 90 mg/dL (74-106)
--- NOTE | 2016-12-04 09:14 | PN ---
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 No change from baseline in difficulty breathing at this time by complains of orthopnea and unintentional weight gain of 8lbs since her last discharge despite 80mg Lasix daily. - Current Medication List Current Medications: Active Medications Acetaminophen (Tylenol -) 650 mg PO Q4H PRN PRN Reason: FEVER OR PAIN Last Admin: 11/30/16 19:33 Dose: 650 mg Aspirin (Asa -) 81 mg PO DAILY [facility] Last Admin: 12/03/16 09:47 Dose: 81 mg Budesonide/Formoterol Fumarate (Symbicort 80/4.5mcg -) 1 puff IH BID [facility] Last Admin: 12/03/16 21:43 Dose: 1 puff Clopidogrel Bisulfate (Plavix -) 75 mg PO DAILY [facility] Last Admin: 12/03/16 09:47 Dose: 75 mg Docusate Sodium (Colace -) 100 mg PO BID [facility] Last Admin: 12/03/16 21:42 Dose: 100 mg Enoxaparin Sodium (Lovenox -) 40 mg SQ DAILY [facility] Last Admin: 12/03/16 09:45 Dose: 40 mg Furosemide (Lasix Injection -) 60 mg IVPUSH TID [facility] Last Admin: 12/04/16 06:19 Dose: 60 mg Guaifenesin (Robitussin -) 10 ml PO Q4H PRN PRN Reason: COUGH Last Admin: 12/03/16 21:48 Dose: 10 ml Levothyroxine Sodium (Synthroid -) 75 mcg PO DAILY@0700 [facility] Last Admin: 12/04/16 06:19 Dose: 75 mcg Lisinopril (Prinivil) 2.5 mg PO DAILY [facility] Last Admin: 12/03/16 09:47 Dose: 2.5 mg Metolazone (Zaroxolyn -) 5 mg PO DAILY@0530 [facility] Last Admin: 12/04/16 05:18 Dose: 5 mg Metoprolol Succinate (Toprol Xl -) 25 mg PO BID [facility] Last Admin: 12/03/16 21:43 Dose: 25 mg Tiotropium [place] (Spiriva -) 1 puff IH DAILY [facility] Last Admin: 12/03/16 09:50 Dose: 1 puff - Objective Vital Signs: Vital Signs Temperature 98.4 F 12/04/16 06:00 Pulse Rate 80 12/04/16 06:00 Respiratory Rate 20 12/04/16 06:00 Blood Pressure 106/50 12/04/16 06:00 O2 Sat by Pulse Oximetry (%) 98 12/04/16 06:00 Eyes: Yes: WNL, Conjunctiva Clear, EOM Intact HENT: Yes: WNL, Atraumatic, Normocephalic Neck: Yes: WNL, Supple, Trachea Midline Cardiovascular: Yes: WNL, Regular Rate and Rhythm Respiratory: Yes: WNL, Regular, CTA Bilaterally Gastrointestinal: Yes: WNL, Normal Bowel Sounds Genitourinary: Yes: WNL Musculoskeletal: Yes: WNL Extremities: Yes: WNL Edema: No Integumentary: Yes: WNL Neurological: Yes: WNL, Alert, Oriented ...Motor Strength: WNL Psychiatric: Yes: WNL Labs: CBC, BMP 11/30/16 06:00 12/04/16 06:30 INR, PTT INR 1.09 (0.82-1.09) 11/22/16 21:29 Assessment/Plan - Problems (1) Nonsustained ventricular tachycardia Assessment/Plan: Increase metoprolol ER as tolerated (BP; symptoms). Code(s): I47.2 - VENTRICULAR TACHYCARDIA (2) Shortness of breath Code(s): R06.02 - SHORTNESS OF BREATH (3) Systolic and diastolic CHF w/reduced LV function, NYHA class 4 Assessment/Plan: On beta blockers and lisinopril. Aldcactone was started. On furosemide; f/u Is and Os, daily weight. Code(s): I50.40 - UNSP COMBINED SYSTOLIC AND DIASTOLIC (CONGESTIVE) HRT FAIL (4) Anxiety 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 Code(s): F41.0 - PANIC DISORDER WITHOUT AGORAPHOBIA (5) Aortic valve replaced Code(s): Z95.2 - PRESENCE OF PROSTHETIC HEART VALVE (6) CAD (coronary artery disease) Code(s): I25.10 - ATHSCL HEART DISEASE OF [place] CORONARY ARTERY W/O ANG PCTRS (7) COPD bronchitis Code(s): J44.9 - CHRONIC OBSTRUCTIVE PULMONARY DISEASE, UNSPECIFIED (8) Diabetes Code(s): E11.9 - TYPE 2 DIABETES MELLITUS WITHOUT COMPLICATIONS (9) Hx of CABG Code(s): Z95.1 - PRESENCE OF AORTOCORONARY BYPASS GRAFT (10) Hyperlipidemia Code(s): E78.5 - HYPERLIPIDEMIA, UNSPECIFIED (11) Hypertension Code(s): I10 - ESSENTIAL (PRIMARY) HYPERTENSION (12) Hypothyroidism Code(s): E03.9 - HYPOTHYROIDISM, UNSPECIFIED (13) ICD (implantable cardioverter-defibrillator) in place Code(s): Z95.810 - PRESENCE OF AUTOMATIC (IMPLANTABLE) CARDIAC DEFIBRILLATOR (14) Sleep apnea in adult Code(s): G47.33 - OBSTRUCTIVE SLEEP APNEA (ADULT) (PEDIATRIC)
[2016-12-04] MEDS: LISINOPRIL 5 MG TABLET (FP) PO SCH (09:42)
[2016-12-04] MEDS: DOCUSATE SODIUM 100 MG CAPSULE (FP) PO SCH ×2 (09:42→21:43)
[2016-12-04] MEDS: CLOPIDOGREL BISULFATE 75 MG TABLET (FP) PO SCH (09:43)
[2016-12-04] MEDS: ASPIRIN 81 MG CHEWABLE TABLETS PO SCH (09:43)
[2016-12-04] MEDS: METOPROLOL SUCCINATE 25 MG TAB.SR.24H (FP) PO SCH ×2 (09:43→21:44)
[2016-12-04] MEDS: ENOXAPARIN NA (PORCINE) 40 MG/0.4 ML DISP.SYRIN SQ SCH (09:44)
[2016-12-04] MEDS: BUDESONIDE/FORMETEROL FUMARATE 80/4.5 mcg INHALER IH SCH ×2 (09:45→21:43)
[2016-12-04] MEDS: TIOTROPIUM BROMIDE 18 MCG/INH (DEVICE W/ 5 CAPSULES) IH SCH (09:45)
--- NOTE | 2016-12-04 14:38 | PN ---
Progress Note, Physician History of Present Illness: Pt seen and examined at bedside. She is awake and oriented. She feels the lower extremity edema is improved. - Current Medication List Current Medications: Active Medications Acetaminophen (Tylenol -) 650 mg PO Q4H PRN PRN Reason: FEVER OR PAIN Last Admin: 11/30/16 19:33 Dose: 650 mg Aspirin (Asa -) 81 mg PO DAILY [facility] Last Admin: 12/04/16 09:43 Dose: 81 mg Budesonide/Formoterol Fumarate (Symbicort 80/4.5mcg -) 1 puff IH BID [facility] Last Admin: 12/04/16 09:45 Dose: 1 puff Clopidogrel Bisulfate (Plavix -) 75 mg PO DAILY [facility] Last Admin: 12/04/16 09:43 Dose: 75 mg Docusate Sodium (Colace -) 100 mg PO BID [facility] Last Admin: 12/04/16 09:42 Dose: 100 mg Enoxaparin Sodium (Lovenox -) 40 mg SQ DAILY [facility] Last Admin: 12/04/16 09:44 Dose: 40 mg Furosemide (Lasix Injection -) 60 mg IVPUSH TID [facility] Last Admin: 12/04/16 13:35 Dose: 60 mg Guaifenesin (Robitussin -) 10 ml PO Q4H PRN PRN Reason: COUGH Last Admin: 12/03/16 21:48 Dose: 10 ml Levothyroxine Sodium (Synthroid -) 75 mcg PO DAILY@0700 [facility] Last Admin: 12/04/16 06:19 Dose: 75 mcg Lisinopril (Prinivil) 2.5 mg PO DAILY [facility] Last Admin: 12/04/16 09:42 Dose: 2.5 mg Metolazone (Zaroxolyn -) 5 mg PO DAILY@0530 [facility] Last Admin: 12/04/16 05:18 Dose: 5 mg Metoprolol Succinate (Toprol Xl -) 25 mg PO BID [facility] Last Admin: 12/04/16 09:43 Dose: 25 mg Tiotropium [place] (Spiriva -) 1 puff IH DAILY [facility] Last Admin: 12/04/16 09:45 Dose: 1 puff - Objective Vital Signs: Vital Signs Temperature 98.1 F 12/04/16 10:00 Pulse Rate 85 12/04/16 10:00 Respiratory Rate 20 12/04/16 10:00 Blood Pressure 118/49 08/27/17 10:00 O2 Sat by Pulse Oximetry (%) 96 12/04/16 09:00 Constitutional: Yes: Calm Eyes: Yes: Conjunctiva Clear HENT: Yes: Atraumatic Neck: Yes: Supple Cardiovascular: Yes: S1, S2 Respiratory: Yes: On Nasal O2 Gastrointestinal: Yes: Soft Musculoskeletal: Yes: WNL Edema: Yes Neurological: Yes: Oriented Psychiatric: Yes: Oriented Labs: CBC, BMP 11/30/16 06:00 12/04/16 06:30 INR, PTT INR 1.09 (0.82-1.09) 11/22/16 21:29 Problem List - Problems (1) Acute on chronic systolic CHF (congestive heart failure) Code(s): I50.23 - ACUTE ON CHRONIC SYSTOLIC (CONGESTIVE) HEART FAILURE Assessment/Plan Current Medications Generic Name Dose Route Start Last Admin Trade Name Freq PRN Reason Stop Dose Admin Acetaminophen 650 mg 11/25/16 14:38 11/30/16 19:33 Tylenol - PO 650 mg Q4H PRN Administration FEVER OR PAIN Aspirin 81 mg 11/23/16 10:00 12/04/16 09:43 Asa - PO 81 mg DAILY [facility] Administration Budesonide/Formoterol Fumarate 1 puff 11/23/16 10:00 12/04/16 09:45 Symbicort 80/4.5mcg - IH 1 puff BID [facility] Administration Clopidogrel Bisulfate 75 mg 11/23/16 10:00 12/04/16 09:43 Plavix - PO 75 mg DAILY [facility] Administration Docusate Sodium 100 mg 11/23/16 10:00 12/04/16 09:42 Colace - PO 100 mg BID [facility] Administration Enoxaparin Sodium 40 mg 12/01/16 10:00 12/04/16 09:44 Lovenox - SQ 40 mg DAILY [facility] Administration Furosemide 60 mg 11/30/16 22:00 12/04/16 13:35 Lasix Injection - IVPUSH 60 mg TID [facility] Administration Guaifenesin 10 ml 11/25/16 14:38 12/03/16 21:48 Robitussin - PO 10 ml Q4H PRN Administration COUGH Levothyroxine Sodium 75 mcg 11/23/16 10:30 12/04/16 06:19 Synthroid - PO 75 mcg DAILY@0700 [facility] Administration Lisinopril 2.5 mg 11/23/16 10:00 12/04/16 09:42 Prinivil PO 2.5 mg DAILY [facility] Administration Metolazone 5 mg 12/01/16 15:15 12/04/16 05:18 Zaroxolyn - PO 5 mg DAILY@0530 [facility] Administration Metoprolol Succinate 25 mg 11/23/16 10:00 12/04/16 09:43 Toprol Xl - PO 25 mg BID [facility] Administration Tiotropium [place] 1 puff 11/29/16 13:00 12/04/16 09:45 Spiriva - IH 1 puff DAILY [facility] Administration 1. dyspnea 2. CHF exacerbation 3. paralyzed hemidiaphragm 4. HTN 5. valvular heart disease 6. azotemia 7. hypothyroid 8. CAD 9. hyponatremia 10. fluid overload Plan - pt down to 163 today - will likely start transitioning her to PO lasix tomorrow - cont metolazone and repeat labs in am - daily weights - fluid restrict - monitor bp Dr Bella
--- NOTE | 2016-12-04 16:00 | PN ---
Progress Note (short form) - Note Progress Note: breathing continues to improve. not at baseline. able to walk further without dyspnea. denies Cp, fever, chills, cough, N/V/C?D Last Vital Signs Temp Pulse Resp BP Pulse Ox 97.5 F L 80 20 116/55 96 12/04/16 14:00 12/04/16 14:00 12/04/16 14:00 12/04/16 14:00 12/04/16 09:00 Intake & Output 12/01/16 12/02/16 12/03/16 12/04/16 23:59 23:59 23:59 23:59 Intake Total 840 840 310 250 Output Total 1000 395 600 400 Balance -160 445 -290 -150 Weight 170 lb 169 lb 5 oz 166 lb 163 lb 6.4 oz General NAD CV S1 S2 RRR Lungs Crackles B/L bases Extremities 2+ pitting edema B/L LE CMP Sodium 132 mmol/L (136-145) L 12/04/16 06:30 Potassium 3.9 mmol/L (3.5-5.1) 12/04/16 06:30 Chloride 84 mmol/L (98-107) L 12/04/16 06:30 Carbon Dioxide 38 mmol/L (21-32) H 12/04/16 06:30 Anion Gap 10 (8-16) 12/04/16 06:30 BUN 44 mg/dL (7-18) H 12/04/16 06:30 Creatinine 1.1 mg/dL (0.55-1.02) H 12/04/16 06:30 Creat Clearance w eGFR 52.95 (>60) 12/03/16 06:00 Calcium 9.6 mg/dL (8.5-10.1) 12/04/16 06:30 Total Bilirubin 0.6 mg/dL (0.2-1.0) 12/03/16 06:00 AST 15 U/L (15-37) D 12/03/16 06:00 ALT 17 U/L (12-78) 12/03/16 06:00 Alkaline Phosphatase 98 U/L (45-117) 12/03/16 06:00 Total Protein 6.8 g/dl (6.4-8.2) 12/03/16 06:00 Albumin 3.5 g/dl (3.4-5.0) 12/03/16 06:00 ASSESSMENT AND PLAN: 81yo F with PMH systolic CHF, CAD s/p CABG +PPM AVR, HTN, 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 Acute on chronic systolic CHF exacerbation-clinically improved. 6 pound weight loss at this point. d/w renal. will transition to po tomorrow. will need to monitor on po lasix as pt has repeated hospitalizations due to volume overload. BP tolerating. cont metaolozone. cardio and renal on board. strict I&O , daily weights, fluid restriction 2. NSVT- unable to titrate up betablocker due to BP. will cont to monitor. Mg level elevated 3. Hyperkalemia- resolved. on low dose acei 4. CAD s/p CABG with PPM- no signs of ACS. 5. HTN- controlled 6. 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 cont management 7. DVT ppx- hep sq Visit type - Emergency Visit Emergency Visit: Yes ED Registration Date: 11/23/16 Care time: The patient presented to the Emergency Department on the above date and was hospitalized for further evaluation of their emergent condition. - New Patient This patient is new to me today: No - Critical Care Critical Care patient: No - Discharge Referral Referred to [facility] Med P.C.: No
[2016-12-05] MEDS: METOLAZONE 5 MG TABLET PO SCH (05:59)
[2016-12-05] MEDS: LEVOTHYROXINE NA 75 MCG TABLET (FP) PO SCH (06:29)
[2016-12-05] MEDS: FUROSEMIDE 40 MG/4 ML INJECTABLE VIAL IVPUSH SCH (06:29)
--- NOTE | 2016-12-05 09:42 | PN ---
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 No change from baseline in difficulty breathing at this time by complains of orthopnea and unintentional weight gain of 8lbs since her last discharge despite 80mg Lasix daily. - Current Medication List Current Medications: Active Medications Acetaminophen (Tylenol -) 650 mg PO Q4H PRN PRN Reason: FEVER OR PAIN Last Admin: 11/30/16 19:33 Dose: 650 mg Aspirin (Asa -) 81 mg PO DAILY [facility] Last Admin: 12/04/16 09:43 Dose: 81 mg Budesonide/Formoterol Fumarate (Symbicort 80/4.5mcg -) 1 puff IH BID [facility] Last Admin: 12/04/16 21:43 Dose: 1 puff Clopidogrel Bisulfate (Plavix -) 75 mg PO DAILY [facility] Last Admin: 12/04/16 09:43 Dose: 75 mg Docusate Sodium (Colace -) 100 mg PO BID [facility] Last Admin: 12/04/16 21:43 Dose: 100 mg Enoxaparin Sodium (Lovenox -) 40 mg SQ DAILY [facility] Last Admin: 12/04/16 09:44 Dose: 40 mg Furosemide (Lasix -) 60 mg PO BID@0600,1400 [facility] Guaifenesin (Robitussin -) 10 ml PO Q4H PRN PRN Reason: COUGH Last Admin: 12/03/16 21:48 Dose: 10 ml Levothyroxine Sodium (Synthroid -) 75 mcg PO DAILY@0700 [facility] Last Admin: 12/05/16 06:29 Dose: 75 mcg Lisinopril (Prinivil) 2.5 mg PO DAILY [facility] Last Admin: 12/04/16 09:42 Dose: 2.5 mg Metolazone (Zaroxolyn -) 5 mg PO DAILY@0530 [facility] Last Admin: 12/05/16 05:59 Dose: 5 mg Metoprolol Succinate (Toprol Xl -) 25 mg PO BID [facility] Last Admin: 12/04/16 21:44 Dose: Not Given Tiotropium [place] (Spiriva -) 1 puff IH DAILY [facility] Last Admin: 12/04/16 09:45 Dose: 1 puff - Objective Vital Signs: Vital Signs Temperature 98.0 F 12/05/16 06:00 Pulse Rate 82 12/05/16 06:00 Respiratory Rate 20 12/05/16 06:00 Blood Pressure 104/57 12/05/16 06:00 O2 Sat by Pulse Oximetry (%) 98 12/04/16 22:00 Eyes: Yes: WNL, Conjunctiva Clear, EOM Intact HENT: Yes: WNL, Atraumatic, Normocephalic Neck: Yes: WNL, Supple, Trachea Midline Cardiovascular: Yes: WNL, Regular Rate and Rhythm Respiratory: Yes: WNL, Regular, CTA Bilaterally Gastrointestinal: Yes: WNL, Normal Bowel Sounds Genitourinary: Yes: WNL Musculoskeletal: Yes: WNL Extremities: Yes: WNL Edema: No Integumentary: Yes: WNL Neurological: Yes: WNL, Alert, Oriented ...Motor Strength: WNL Psychiatric: Yes: WNL Labs: CBC, BMP 11/30/16 06:00 12/04/16 06:30 INR, PTT INR 1.09 (0.82-1.09) 11/22/16 21:29 Assessment/Plan - Problems (1) Nonsustained ventricular tachycardia Assessment/Plan: Increase metoprolol ER as tolerated (BP; symptoms). Code(s): I47.2 - VENTRICULAR TACHYCARDIA (2) Shortness of breath Code(s): R06.02 - SHORTNESS OF BREATH (3) Systolic and diastolic CHF w/reduced LV function, NYHA class 4 Assessment/Plan: On beta blockers and lisinopril. Aldcactone was started. On furosemide; f/u Is and Os, daily weight. Code(s): I50.40 - UNSP COMBINED SYSTOLIC AND DIASTOLIC (CONGESTIVE) HRT FAIL (4) Anxiety 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 Code(s): F41.0 - PANIC DISORDER WITHOUT AGORAPHOBIA (5) Aortic valve replaced Code(s): Z95.2 - PRESENCE OF PROSTHETIC HEART VALVE (6) CAD (coronary artery disease) Code(s): I25.10 - ATHSCL HEART DISEASE OF [place] CORONARY ARTERY W/O ANG PCTRS (7) COPD bronchitis Code(s): J44.9 - CHRONIC OBSTRUCTIVE PULMONARY DISEASE, UNSPECIFIED (8) Diabetes Code(s): E11.9 - TYPE 2 DIABETES MELLITUS WITHOUT COMPLICATIONS (9) Hx of CABG Code(s): Z95.1 - PRESENCE OF AORTOCORONARY BYPASS GRAFT (10) Hyperlipidemia Code(s): E78.5 - HYPERLIPIDEMIA, UNSPECIFIED (11) Hypertension Code(s): I10 - ESSENTIAL (PRIMARY) HYPERTENSION (12) Hypothyroidism Code(s): E03.9 - HYPOTHYROIDISM, UNSPECIFIED (13) ICD (implantable cardioverter-defibrillator) in place Code(s): Z95.810 - PRESENCE OF AUTOMATIC (IMPLANTABLE) CARDIAC DEFIBRILLATOR (14) Sleep apnea in adult Code(s): G47.33 - OBSTRUCTIVE SLEEP APNEA (ADULT) (PEDIATRIC)
[2016-12-05] MEDS: DOCUSATE SODIUM 100 MG CAPSULE (FP) PO SCH ×2 (10:00→21:21)
[2016-12-05] MEDS: ENOXAPARIN NA (PORCINE) 40 MG/0.4 ML DISP.SYRIN SQ SCH (10:00)
[2016-12-05] MEDS: METOPROLOL SUCCINATE 25 MG TAB.SR.24H (FP) PO SCH ×2 (10:00→21:21)
[2016-12-05] MEDS: TIOTROPIUM BROMIDE 18 MCG/INH (DEVICE W/ 5 CAPSULES) IH SCH (10:00)
[2016-12-05] MEDS: BUDESONIDE/FORMETEROL FUMARATE 80/4.5 mcg INHALER IH SCH ×2 (10:00→21:45)
[2016-12-05] MEDS: CLOPIDOGREL BISULFATE 75 MG TABLET (FP) PO SCH (10:00)
[2016-12-05] MEDS: LISINOPRIL 5 MG TABLET (FP) PO SCH (10:00)
[2016-12-05] MEDS: ASPIRIN 81 MG CHEWABLE TABLETS PO SCH (10:00)
[2016-12-05 10:25] LABS: ANION GAP 9 (8-16); CALCIUM 9.4 mg/dL (8.5-10.1); CO2 41 mmol/L (21-32); CREATININE 1.2 mg/dL (0.55-1.02); GLUCOSE,RANDOM 150 mg/dL (74-106)
--- NOTE | 2016-12-05 10:37 | PN ---
Progress Note, Physician History of Present Illness: pulmonary alert,feeling better,less dyspneic. - Current Medication List Current Medications: Active Medications Acetaminophen (Tylenol -) 650 mg PO Q4H PRN PRN Reason: FEVER OR PAIN Last Admin: 11/30/16 19:33 Dose: 650 mg Aspirin (Asa -) 81 mg PO DAILY [facility] Last Admin: 12/05/16 10:00 Dose: 81 mg Budesonide/Formoterol Fumarate (Symbicort 80/4.5mcg -) 1 puff IH BID [facility] Last Admin: 12/05/16 10:00 Dose: 1 puff Clopidogrel Bisulfate (Plavix -) 75 mg PO DAILY [facility] Last Admin: 12/05/16 10:00 Dose: 75 mg Docusate Sodium (Colace -) 100 mg PO BID [facility] Last Admin: 12/05/16 10:00 Dose: 100 mg Enoxaparin Sodium (Lovenox -) 40 mg SQ DAILY [facility] Last Admin: 12/05/16 10:00 Dose: 40 mg Furosemide (Lasix -) 60 mg PO BID@0600,1400 [facility] Guaifenesin (Robitussin -) 10 ml PO Q4H PRN PRN Reason: COUGH Last Admin: 12/03/16 21:48 Dose: 10 ml Levothyroxine Sodium (Synthroid -) 75 mcg PO DAILY@0700 [facility] Last Admin: 12/05/16 06:29 Dose: 75 mcg Lisinopril (Prinivil) 2.5 mg PO DAILY [facility] Last Admin: 12/05/16 10:00 Dose: 2.5 mg Metolazone (Zaroxolyn -) 5 mg PO DAILY@0530 [facility] Last Admin: 12/05/16 05:59 Dose: 5 mg Metoprolol Succinate (Toprol Xl -) 25 mg PO BID [facility] Last Admin: 12/05/16 10:00 Dose: 25 mg Tiotropium [place] (Spiriva -) 1 puff IH DAILY [facility] Last Admin: 12/05/16 10:00 Dose: 1 puff - Objective Vital Signs: Vital Signs Temperature 98.0 F 12/05/16 06:00 Pulse Rate 82 12/05/16 06:00 Respiratory Rate 20 12/05/16 06:00 Blood Pressure 104/57 12/05/16 06:00 O2 Sat by Pulse Oximetry (%) 98 12/04/16 22:00 Constitutional: Yes: Well Nourished, Calm Eyes: Yes: WNL HENT: Yes: WNL Neck: Yes: WNL Cardiovascular: Yes: Pulse Irregular, S1, S2 Respiratory: Yes: Rales (few bibasilar crackles) Gastrointestinal: Yes: Normal Bowel Sounds, Soft Extremities: Yes: WNL Edema: Yes (L>R) Labs: CBC, BMP 11/30/16 06:00 12/05/16 09:20 INR, PTT INR 1.09 (0.82-1.09) 11/22/16 21:29 Problem List - Problems (1) Acute on chronic systolic CHF (congestive heart failure) Code(s): I50.23 - ACUTE ON CHRONIC SYSTOLIC (CONGESTIVE) HEART FAILURE (2) CHF exacerbation Code(s): I50.9 - HEART FAILURE, UNSPECIFIED Qualifiers: Congestive heart failure type: unspecified congestive heart failure type Qualified Code(s): I50.9 - Heart failure, unspecified (3) Shortness of breath Code(s): R06.02 - SHORTNESS OF BREATH (4) Systolic and diastolic CHF w/reduced LV function, NYHA class 4 Code(s): I50.40 - UNSP COMBINED SYSTOLIC AND DIASTOLIC (CONGESTIVE) HRT FAIL (5) Anxiety Code(s): F41.9 - ANXIETY DISORDER, UNSPECIFIED (6) Aortic valve replaced Code(s): Z95.2 - PRESENCE OF PROSTHETIC HEART VALVE (7) CAD (coronary artery disease) Code(s): I25.10 - ATHSCL HEART DISEASE OF [place] CORONARY ARTERY W/O ANG PCTRS (8) Hx of CABG Code(s): Z95.1 - PRESENCE OF AORTOCORONARY BYPASS GRAFT (9) Hypertension Code(s): I10 - ESSENTIAL (PRIMARY) HYPERTENSION (10) Hypothyroidism Code(s): E03.9 - HYPOTHYROIDISM, UNSPECIFIED (11) ICD (implantable cardioverter-defibrillator) in place Code(s): Z95.810 - PRESENCE OF AUTOMATIC (IMPLANTABLE) CARDIAC DEFIBRILLATOR (12) Sleep apnea in adult Code(s): G47.33 - OBSTRUCTIVE SLEEP APNEA (ADULT) (PEDIATRIC) (13) Valvular heart disease Code(s): I38 - ENDOCARDITIS, VALVE UNSPECIFIED (14) Diaphragm paralysis Code(s): J98.6 - DISORDERS OF DIAPHRAGM (15) Chronic hypoxemic respiratory failure Code(s): J96.11 - CHRONIC RESPIRATORY FAILURE WITH HYPOXIA (16) COPD (chronic obstructive pulmonary disease) Code(s): J44.9 - CHRONIC OBSTRUCTIVE PULMONARY DISEASE, UNSPECIFIED Assessment/Plan IMP ACUTE ON CHRONIC CHF IMPROVING CHRONIC HYPOXEMIC RESPIRATORY FAILURE COPD ON O2 ASHD S/P CABG S/P AVR LEFT DIAPHRAGMATIC PARALYSIS S/P PPM/AICD AFIB HYPOTHYROIDISM JERALD NOT ON CPAP PLAN LASIX PO PER CARDIOLOGY O2 DAILY WTS INHALED BRONCHODILATORS MONITOR LILIAN MORRISSEY Problem List - Problems (1) Acute on chronic systolic CHF (congestive heart failure) Code(s): I50.23 - ACUTE ON CHRONIC SYSTOLIC (CONGESTIVE) HEART FAILURE (2) CHF exacerbation Code(s): I50.9 - HEART FAILURE, UNSPECIFIED Qualifiers: Congestive heart failure type: unspecified congestive heart failure type Qualified Code(s): I50.9 - Heart failure, unspecified (3) Shortness of breath Code(s): R06.02 - SHORTNESS OF BREATH (4) Systolic and diastolic CHF w/reduced LV function, NYHA class 4 Code(s): I50.40 - UNSP COMBINED SYSTOLIC AND DIASTOLIC (CONGESTIVE) HRT FAIL (5) Anxiety Code(s): F41.9 - ANXIETY DISORDER, UNSPECIFIED (6) Aortic valve replaced Code(s): Z95.2 - PRESENCE OF PROSTHETIC HEART VALVE (7) CAD (coronary artery disease) Code(s): I25.10 - ATHSCL HEART DISEASE OF [place] CORONARY ARTERY W/O ANG PCTRS (8) Hx of CABG Code(s): Z95.1 - PRESENCE OF AORTOCORONARY BYPASS GRAFT (9) Hypertension Code(s): I10 - ESSENTIAL (PRIMARY) HYPERTENSION (10) Hypothyroidism Code(s): E03.9 - HYPOTHYROIDISM, UNSPECIFIED (11) ICD (implantable cardioverter-defibrillator) in place Code(s): Z95.810 - PRESENCE OF AUTOMATIC (IMPLANTABLE) CARDIAC DEFIBRILLATOR (12) Sleep apnea in adult Code(s): G47.33 - OBSTRUCTIVE SLEEP APNEA (ADULT) (PEDIATRIC) (13) Valvular heart disease Code(s): I38 - ENDOCARDITIS, VALVE UNSPECIFIED (14) Diaphragm paralysis Code(s): J98.6 - DISORDERS OF DIAPHRAGM (15) Chronic hypoxemic respiratory failure Code(s): J96.11 - CHRONIC RESPIRATORY FAILURE WITH HYPOXIA (16) COPD (chronic obstructive pulmonary disease) Code(s): J44.9 - CHRONIC OBSTRUCTIVE PULMONARY DISEASE, UNSPECIFIED
[2016-12-05] MEDS ORDERED: FUROSEMIDE 40 MG TABLET (FP) PO SCH (14:00)
--- NOTE | 2016-12-05 14:54 | PN ---
Progress Note, Physician History of Present Illness: Pt seen and examined at bedside. She is awake and alert. Her weight is down to 161. - Current Medication List Current Medications: Active Medications Acetaminophen (Tylenol -) 650 mg PO Q4H PRN PRN Reason: FEVER OR PAIN Last Admin: 11/30/16 19:33 Dose: 650 mg Aspirin (Asa -) 81 mg PO DAILY [facility] Last Admin: 12/05/16 10:00 Dose: 81 mg Budesonide/Formoterol Fumarate (Symbicort 80/4.5mcg -) 1 puff IH BID [facility] Last Admin: 12/05/16 10:00 Dose: 1 puff Clopidogrel Bisulfate (Plavix -) 75 mg PO DAILY [facility] Last Admin: 12/05/16 10:00 Dose: 75 mg Docusate Sodium (Colace -) 100 mg PO BID [facility] Last Admin: 12/05/16 10:00 Dose: 100 mg Enoxaparin Sodium (Lovenox -) 40 mg SQ DAILY [facility] Last Admin: 12/05/16 10:00 Dose: 40 mg Furosemide (Lasix -) 80 mg PO BID@0600,1400 [facility] Guaifenesin (Robitussin -) 10 ml PO Q4H PRN PRN Reason: COUGH Last Admin: 12/03/16 21:48 Dose: 10 ml Levothyroxine Sodium (Synthroid -) 75 mcg PO DAILY@0700 [facility] Last Admin: 12/05/16 06:29 Dose: 75 mcg Lisinopril (Prinivil) 2.5 mg PO DAILY [facility] Last Admin: 12/05/16 10:00 Dose: 2.5 mg Metolazone (Zaroxolyn -) 5 mg PO DAILY@0530 [facility] Last Admin: 12/05/16 05:59 Dose: 5 mg Metoprolol Succinate (Toprol Xl -) 25 mg PO BID [facility] Last Admin: 12/05/16 10:00 Dose: 25 mg Tiotropium [place] (Spiriva -) 1 puff IH DAILY [facility] Last Admin: 12/05/16 10:00 Dose: 1 puff - Objective Vital Signs: Vital Signs Temperature 98.2 F 12/05/16 14:50 Pulse Rate 70 12/05/16 14:50 Respiratory Rate 20 12/05/16 14:50 Blood Pressure 97/55 12/05/16 14:50 O2 Sat by Pulse Oximetry (%) 95 12/05/16 10:00 Constitutional: Yes: Calm Eyes: Yes: Conjunctiva Clear HENT: Yes: Atraumatic Neck: Yes: Supple Cardiovascular: Yes: S1, S2 Respiratory: Yes: On Nasal O2 Gastrointestinal: Yes: Soft Genitourinary: Yes: WNL Edema: Yes Edema: LLE: 1+, RLE: 1+ Neurological: Yes: Oriented Psychiatric: Yes: Oriented Labs: CBC, BMP 11/30/16 06:00 12/05/16 09:20 INR, PTT INR 1.09 (0.82-1.09) 11/22/16 21:29 Problem List - Problems (1) Acute on chronic systolic CHF (congestive heart failure) Code(s): I50.23 - ACUTE ON CHRONIC SYSTOLIC (CONGESTIVE) HEART FAILURE Assessment/Plan Current Medications Generic Name Dose Route Start Last Admin Trade Name Freq PRN Reason Stop Dose Admin Acetaminophen 650 mg 11/25/16 14:38 11/30/16 19:33 Tylenol - PO 650 mg Q4H PRN Administration FEVER OR PAIN Aspirin 81 mg 11/23/16 10:00 12/05/16 10:00 Asa - PO 81 mg DAILY [facility] Administration Budesonide/Formoterol Fumarate 1 puff 11/23/16 10:00 12/05/16 10:00 Symbicort 80/4.5mcg - IH 1 puff BID [facility] Administration Clopidogrel Bisulfate 75 mg 11/23/16 10:00 12/05/16 10:00 Plavix - PO 75 mg DAILY [facility] Administration Docusate Sodium 100 mg 11/23/16 10:00 12/05/16 10:00 Colace - PO 100 mg BID [facility] Administration Enoxaparin Sodium 40 mg 12/01/16 10:00 12/05/16 10:00 Lovenox - SQ 40 mg DAILY [facility] Administration Furosemide 80 mg 12/05/16 14:00 Lasix - PO BID@0600,1400 [facility] Guaifenesin 10 ml 11/25/16 14:38 12/03/16 21:48 Robitussin - PO 10 ml Q4H PRN Administration COUGH Levothyroxine Sodium 75 mcg 11/23/16 10:30 12/05/16 06:29 Synthroid - PO 75 mcg DAILY@0700 [facility] Administration Lisinopril 2.5 mg 11/23/16 10:00 12/05/16 10:00 Prinivil PO 2.5 mg DAILY [facility] Administration Metolazone 5 mg 12/01/16 15:15 12/05/16 05:59 Zaroxolyn - PO 5 mg DAILY@0530 [facility] Administration Metoprolol Succinate 25 mg 11/23/16 10:00 12/05/16 10:00 Toprol Xl - PO 25 mg BID [facility] Administration Tiotropium [place] 1 puff 11/29/16 13:00 12/05/16 10:00 Spiriva - IH 1 puff DAILY [facility] Administration 1. dyspnea 2. CHF exacerbation 3. paralyzed hemidiaphragm 4. HTN 5. valvular heart disease 6. azotemia 7. hypothyroid 8. CAD 9. hyponatremia 10. fluid overload Plan - weight down to 161 - lasix 80 bid (home dose before admission) along with metolazone - daily weights - fluid restrict - monitor bp Dr Bella
--- NOTE | 2016-12-05 15:04 | PN ---
Physical Exam: SUBJECTIVE: Patient seen and examined at bedside. She states That she feels better today, and her leg swelling has improved. no new complaints. She denies SOB, chest pain or palpitations. OBJECTIVE: Vital Signs Period Temp Pulse Resp BP Sys/Camilo Pulse Ox Last 24 Hr 95.5 F-98.2 F 70-88 20-20 94-104/42-57 95-98 GENERAL: The patient is awake, alert, and fully oriented, in no acute distress. HEAD: Normal with no signs of trauma. NECK: Trachea midline, full range of motion, supple. LUNGS: Breath sounds equal, crackles in the middle and lower lung roberts; greater on left than the right, no wheezes, no accessory muscle use. HEART: Regular rate and rhythm, S1, S2 without murmur, rub or gallop. ABDOMEN: Soft, nontender, nondistended, normoactive bowel sounds, no guarding, no rebound. NEUROLOGICAL: Cranial nerves II through X grossly intact. Normal speech, gait not observed. SKIN: Warm, dry, normal turgor, no rashes or lesions noted Laboratory Results - last 24 hr 12/05/16 09:20 Sodium 134 L Potassium 3.8 Chloride 84 L Carbon Dioxide 41 H Anion Gap 9 BUN 52 H Creatinine 1.2 H Random Glucose 150 H D Calcium 9.4 Active Medications Generic Name Dose Route Start Last Admin Trade Name Freq PRN Reason Stop Dose Admin Acetaminophen 650 mg 11/25/16 14:38 11/30/16 19:33 Tylenol - PO 650 mg Q4H PRN Administration FEVER OR PAIN Aspirin 81 mg 11/23/16 10:00 12/05/16 10:00 Asa - PO 81 mg DAILY [facility] Administration Budesonide/Formoterol Fumarate 1 puff 11/23/16 10:00 12/05/16 10:00 Symbicort 80/4.5mcg - IH 1 puff BID [facility] Administration Clopidogrel Bisulfate 75 mg 11/23/16 10:00 12/05/16 10:00 Plavix - PO 75 mg DAILY [facility] Administration Docusate Sodium 100 mg 11/23/16 10:00 12/05/16 10:00 Colace - PO 100 mg BID [facility] Administration Enoxaparin Sodium 40 mg 12/01/16 10:00 12/05/16 10:00 Lovenox - SQ 40 mg DAILY [facility] Administration Furosemide 80 mg 12/05/16 14:00 Lasix - PO BID@0600,1400 [facility] Guaifenesin 10 ml 11/25/16 14:38 12/03/16 21:48 Robitussin - PO 10 ml Q4H PRN Administration COUGH Levothyroxine Sodium 75 mcg 11/23/16 10:30 12/05/16 06:29 Synthroid - PO 75 mcg DAILY@0700 [facility] Administration Lisinopril 2.5 mg 11/23/16 10:00 12/05/16 10:00 Prinivil PO 2.5 mg DAILY [facility] Administration Metolazone 5 mg 12/01/16 15:15 12/05/16 05:59 Zaroxolyn - PO 5 mg DAILY@0530 [facility] Administration Metoprolol Succinate 25 mg 11/23/16 10:00 12/05/16 10:00 Toprol Xl - PO 25 mg BID [facility] Administration Tiotropium [place] 1 puff 11/29/16 13:00 12/05/16 10:00 Spiriva - IH 1 puff DAILY [facility] Administration ASSESSMENT/PLAN: 81yo F with PMH of CHF, COPD, afib, s/p CABG, 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 # Acute on Chronic Systolic CHF exacerbation, NYHA class 3 - Lasix dose changed from 60mg IV TID to 80mg BID PO -will monitor the patient on oral lasix - Metalozone 5mg PO. BP controlled. - Lisinopril 2.5mg PO , Metoprolol 25mg PO -Guaifenesin 10 ml po q4 prn -Abiodun stockings- patient refusing -Strict I & O 's -Daily wts -Fluid restriction -Daily Physical therapy #CAD s/p cabg -Troponin x2 negative -Continue aspirin 81 mg -Continue plavix 75 mg #Hyperkalemia, resolved -will continue to monitor #HTN -Controlled -Will monitor and continue home BP/ cardiac meds # asthma/COPD - cont. 3L O2 nasal cannula - cont. home meds of Symbicort, Spiriva # hypothyroidism - cont. home med of Synthroid 75 mcg po daily # HLD - cont. home med of Zocor # FEN -no IVF indicated at this time -monitor lytes -potassium/sodium restricted diet # Prophylaxis - Lovenox 40 mg sq daily #Dispo -planning for possible discharge on monday Problem List - Problems (1) Acute on chronic systolic CHF (congestive heart failure) Code(s): I50.23 - ACUTE ON CHRONIC SYSTOLIC (CONGESTIVE) HEART FAILURE (2) COPD (chronic obstructive pulmonary disease) Code(s): J44.9 - CHRONIC OBSTRUCTIVE PULMONARY DISEASE, UNSPECIFIED (3) CHF NYHA class III Code(s): I50.9 - HEART FAILURE, UNSPECIFIED (4) Shortness of breath Code(s): R06.02 - SHORTNESS OF BREATH (5) Anxiety Code(s): F41.9 - ANXIETY DISORDER, UNSPECIFIED Visit type - Emergency Visit Emergency Visit: Yes ED Registration Date: 11/23/16 Care time: The patient presented to the Emergency Department on the above date and was hospitalized for further evaluation of their emergent condition. - New Patient This patient is new to me today: Yes Date on this admission: 12/05/16 - Critical Care Critical Care patient: No
[2016-12-05] MEDS: FUROSEMIDE 40 MG TABLET (FP) PO SCH (15:29)
--- NOTE | 2016-12-05 16:36 | PN ---
Teaching Attending Note Name of Resident: Carlo Cisneros ATTENDING PHYSICIAN STATEMENT I saw and evaluated the patient. I reviewed the resident's note and discussed the case with the resident. I agree with the resident's findings and plan as documented. SUBJECTIVE:dyspnea improved but not at baseline. 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 Acute on chronic systolic CHF exacerbation-clinically improved. continues to loose weight. will transition to lasix po as pt now becoming alkalotic with BETTIE. monitor on lasix 80mg BID (home dose). due to frequent admissions due to rapidly re-accumulation of volume will monitor pt on lasix po. cont metaolozone. cardio and renal on board. strict I&O, daily weights, fluid restriction 2. NSVT- unable to titrate up betablocker due to BP. will cont to monitor. Mg level elevated 3. Hyperkalemia- resolved. on low dose acei 4. CAD s/p CABG with PPM- no signs of ACS. 5. HTN- controlled 6. 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 cont management 7. DVT ppx- hep sq
[2016-12-06] MEDS: METOLAZONE 5 MG TABLET PO SCH (05:53)
[2016-12-06] MEDS: LEVOTHYROXINE NA 75 MCG TABLET (FP) PO SCH (06:29)
[2016-12-06] MEDS: FUROSEMIDE 40 MG TABLET (FP) PO SCH (06:29)
[2016-12-06 08:24] LABS: MCH 26.3 pg (25.7-33.7); MCHC 32.7 g/dl (32.0-36.0); MEAN CELL VOLUME 80.3 fl (80-96); MEAN PLT VOLUME 8.9 fl (7.5-11.1); PLATELET COUNT 339 K/MM3 (134-434); RDW 15.9 % (11.6-15.6); WHITE BLOOD COUNT 9.2 K/mm3 (4.0-10.0)
[2016-12-06] MEDS: DOCUSATE SODIUM 100 MG CAPSULE (FP) PO SCH ×2 (08:56→10:17)
[2016-12-06] MEDS: METOPROLOL SUCCINATE 25 MG TAB.SR.24H (FP) PO SCH ×2 (08:56→10:18)
[2016-12-06] MEDS: CLOPIDOGREL BISULFATE 75 MG TABLET (FP) PO SCH ×2 (08:56→10:17)
[2016-12-06] MEDS: TIOTROPIUM BROMIDE 18 MCG/INH (DEVICE W/ 5 CAPSULES) IH SCH ×2 (08:56→10:17)
[2016-12-06] MEDS: BUDESONIDE/FORMETEROL FUMARATE 80/4.5 mcg INHALER IH SCH ×2 (08:56→10:18)
[2016-12-06] MEDS: ASPIRIN 81 MG CHEWABLE TABLETS PO SCH ×2 (08:56→10:17)
[2016-12-06] MEDS: LISINOPRIL 5 MG TABLET (FP) PO SCH ×2 (08:57→10:17)
[2016-12-06] MEDS: ENOXAPARIN NA (PORCINE) 40 MG/0.4 ML DISP.SYRIN SQ SCH ×2 (08:57→10:17)
[2016-12-06 08:58] LABS: ANION GAP 8 (8-16); CALCIUM 9.6 mg/dL (8.5-10.1); CO2 40 mmol/L (21-32); GLUCOSE,RANDOM 91 mg/dL (74-106); MAGNESIUM 2.6 mg/dL (1.8-2.4)
--- NOTE | 2016-12-06 09:36 | PN ---
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 No change from baseline in difficulty breathing at this time by complains of orthopnea and unintentional weight gain of 8lbs since her last discharge despite 80mg Lasix daily. - Current Medication List Current Medications: Active Medications Acetaminophen (Tylenol -) 650 mg PO Q4H PRN PRN Reason: FEVER OR PAIN Last Admin: 11/30/16 19:33 Dose: 650 mg Aspirin (Asa -) 81 mg PO DAILY [facility] Last Admin: 12/06/16 08:56 Dose: 81 mg Budesonide/Formoterol Fumarate (Symbicort 80/4.5mcg -) 1 puff IH BID [facility] Last Admin: 12/06/16 08:56 Dose: 1 puff Clopidogrel Bisulfate (Plavix -) 75 mg PO DAILY [facility] Last Admin: 12/06/16 08:56 Dose: 75 mg Docusate Sodium (Colace -) 100 mg PO BID [facility] Last Admin: 12/06/16 08:56 Dose: 100 mg Enoxaparin Sodium (Lovenox -) 40 mg SQ DAILY [facility] Last Admin: 12/06/16 08:57 Dose: 40 mg Furosemide (Lasix -) 80 mg PO BID@0600,1400 [facility] Last Admin: 12/06/16 06:29 Dose: 80 mg Guaifenesin (Robitussin -) 10 ml PO Q4H PRN PRN Reason: COUGH Last Admin: 12/03/16 21:48 Dose: 10 ml Levothyroxine Sodium (Synthroid -) 75 mcg PO DAILY@0700 [facility] Last Admin: 12/06/16 06:29 Dose: 75 mcg Lisinopril (Prinivil) 2.5 mg PO DAILY [facility] Last Admin: 12/06/16 08:57 Dose: 2.5 mg Metolazone (Zaroxolyn -) 5 mg PO DAILY@0530 [facility] Last Admin: 12/06/16 05:53 Dose: 5 mg Metoprolol Succinate (Toprol Xl -) 25 mg PO BID [facility] Last Admin: 12/06/16 08:56 Dose: 25 mg Tiotropium [place] (Spiriva -) 1 puff IH DAILY [facility] Last Admin: 12/06/16 08:56 Dose: 1 puff - Objective Vital Signs: Vital Signs Temperature 98.0 F 12/06/16 06:00 Pulse Rate 81 12/06/16 06:00 Respiratory Rate 20 12/06/16 06:00 Blood Pressure 97/44 12/06/16 06:00 O2 Sat by Pulse Oximetry (%) 99 12/05/16 21:00 Eyes: Yes: WNL, Conjunctiva Clear, EOM Intact HENT: Yes: WNL, Atraumatic, Normocephalic Neck: Yes: WNL, Supple, Trachea Midline Cardiovascular: Yes: WNL, Regular Rate and Rhythm Respiratory: Yes: WNL, Regular, CTA Bilaterally Gastrointestinal: Yes: WNL, Normal Bowel Sounds Genitourinary: Yes: WNL Musculoskeletal: Yes: WNL Extremities: Yes: WNL Edema: Yes Integumentary: Yes: WNL Neurological: Yes: WNL, Alert, Oriented ...Motor Strength: WNL Psychiatric: Yes: WNL Labs: CBC, BMP 12/06/16 06:05 12/06/16 06:05 INR, PTT INR 1.09 (0.82-1.09) 11/22/16 21:29 Assessment/Plan - Problems (1) Nonsustained ventricular tachycardia Assessment/Plan: Increase metoprolol ER as tolerated (BP; symptoms). Code(s): I47.2 - VENTRICULAR TACHYCARDIA (2) Shortness of breath Code(s): R06.02 - SHORTNESS OF BREATH (3) Systolic and diastolic CHF w/reduced LV function, NYHA class 4 Assessment/Plan: On beta blockers and lisinopril. Aldcactone was started. On furosemide; f/u Is and Os, daily weight. Code(s): I50.40 - UNSP COMBINED SYSTOLIC AND DIASTOLIC (CONGESTIVE) HRT FAIL (4) Anxiety 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 Code(s): F41.0 - PANIC DISORDER WITHOUT AGORAPHOBIA (5) Aortic valve replaced Code(s): Z95.2 - PRESENCE OF PROSTHETIC HEART VALVE (6) CAD (coronary artery disease) Code(s): I25.10 - ATHSCL HEART DISEASE OF [place] CORONARY ARTERY W/O ANG PCTRS (7) COPD bronchitis Code(s): J44.9 - CHRONIC OBSTRUCTIVE PULMONARY DISEASE, UNSPECIFIED (8) Diabetes Code(s): E11.9 - TYPE 2 DIABETES MELLITUS WITHOUT COMPLICATIONS (9) Hx of CABG Code(s): Z95.1 - PRESENCE OF AORTOCORONARY BYPASS GRAFT (10) Hyperlipidemia Code(s): E78.5 - HYPERLIPIDEMIA, UNSPECIFIED (11) Hypertension Code(s): I10 - ESSENTIAL (PRIMARY) HYPERTENSION (12) Hypothyroidism Code(s): E03.9 - HYPOTHYROIDISM, UNSPECIFIED (13) ICD (implantable cardioverter-defibrillator) in place Code(s): Z95.810 - PRESENCE OF AUTOMATIC (IMPLANTABLE) CARDIAC DEFIBRILLATOR (14) Sleep apnea in adult Code(s): G47.33 - OBSTRUCTIVE SLEEP APNEA (ADULT) (PEDIATRIC)
--- NOTE | 2016-12-06 10:02 | PN ---
Progress Note, Physician History of Present Illness: pulmonary alert,feeling better,less dyspneic,nad - Current Medication List Current Medications: Active Medications Acetaminophen (Tylenol -) 650 mg PO Q4H PRN PRN Reason: FEVER OR PAIN Last Admin: 11/30/16 19:33 Dose: 650 mg Aspirin (Asa -) 81 mg PO DAILY [facility] Last Admin: 12/06/16 08:56 Dose: 81 mg Budesonide/Formoterol Fumarate (Symbicort 80/4.5mcg -) 1 puff IH BID [facility] Last Admin: 12/06/16 08:56 Dose: 1 puff Clopidogrel Bisulfate (Plavix -) 75 mg PO DAILY [facility] Last Admin: 12/06/16 08:56 Dose: 75 mg Docusate Sodium (Colace -) 100 mg PO BID [facility] Last Admin: 12/06/16 08:56 Dose: 100 mg Enoxaparin Sodium (Lovenox -) 40 mg SQ DAILY [facility] Last Admin: 12/06/16 08:57 Dose: 40 mg Furosemide (Lasix -) 80 mg PO BID@0600,1400 [facility] Last Admin: 12/06/16 06:29 Dose: 80 mg Guaifenesin (Robitussin -) 10 ml PO Q4H PRN PRN Reason: COUGH Last Admin: 12/03/16 21:48 Dose: 10 ml Levothyroxine Sodium (Synthroid -) 75 mcg PO DAILY@0700 [facility] Last Admin: 12/06/16 06:29 Dose: 75 mcg Lisinopril (Prinivil) 2.5 mg PO DAILY [facility] Last Admin: 12/06/16 08:57 Dose: 2.5 mg Metolazone (Zaroxolyn -) 5 mg PO DAILY@0530 [facility] Last Admin: 12/06/16 05:53 Dose: 5 mg Metoprolol Succinate (Toprol Xl -) 25 mg PO BID [facility] Last Admin: 12/06/16 08:56 Dose: 25 mg Tiotropium [place] (Spiriva -) 1 puff IH DAILY [facility] Last Admin: 12/06/16 08:56 Dose: 1 puff - Objective Vital Signs: Vital Signs Temperature 98.0 F 12/06/16 06:00 Pulse Rate 81 12/06/16 06:00 Respiratory Rate 20 12/06/16 06:00 Blood Pressure 97/44 12/06/16 06:00 O2 Sat by Pulse Oximetry (%) 99 12/05/16 21:00 Constitutional: Yes: Well Nourished, Calm Eyes: Yes: WNL HENT: Yes: WNL Neck: Yes: WNL Cardiovascular: Yes: Pulse Irregular, S1, S2 Respiratory: Yes: Rales (bibasilar rales) Gastrointestinal: Yes: Normal Bowel Sounds, Soft Extremities: Yes: WNL Edema: Yes Labs: CBC, BMP 12/06/16 06:05 12/06/16 06:05 INR, PTT INR 1.09 (0.82-1.09) 11/22/16 21:29 Problem List - Problems (1) Acute on chronic systolic CHF (congestive heart failure) Code(s): I50.23 - ACUTE ON CHRONIC SYSTOLIC (CONGESTIVE) HEART FAILURE (2) CHF exacerbation Code(s): I50.9 - HEART FAILURE, UNSPECIFIED Qualifiers: Congestive heart failure type: unspecified congestive heart failure type Qualified Code(s): I50.9 - Heart failure, unspecified (3) Shortness of breath Code(s): R06.02 - SHORTNESS OF BREATH (4) Systolic and diastolic CHF w/reduced LV function, NYHA class 4 Code(s): I50.40 - UNSP COMBINED SYSTOLIC AND DIASTOLIC (CONGESTIVE) HRT FAIL (5) Anxiety Code(s): F41.9 - ANXIETY DISORDER, UNSPECIFIED (6) Aortic valve replaced Code(s): Z95.2 - PRESENCE OF PROSTHETIC HEART VALVE (7) CAD (coronary artery disease) Code(s): I25.10 - ATHSCL HEART DISEASE OF [place] CORONARY ARTERY W/O ANG PCTRS (8) Hx of CABG Code(s): Z95.1 - PRESENCE OF AORTOCORONARY BYPASS GRAFT (9) Hypertension Code(s): I10 - ESSENTIAL (PRIMARY) HYPERTENSION (10) Hypothyroidism Code(s): E03.9 - HYPOTHYROIDISM, UNSPECIFIED (11) ICD (implantable cardioverter-defibrillator) in place Code(s): Z95.810 - PRESENCE OF AUTOMATIC (IMPLANTABLE) CARDIAC DEFIBRILLATOR (12) Sleep apnea in adult Code(s): G47.33 - OBSTRUCTIVE SLEEP APNEA (ADULT) (PEDIATRIC) (13) Valvular heart disease Code(s): I38 - ENDOCARDITIS, VALVE UNSPECIFIED (14) Diaphragm paralysis Code(s): J98.6 - DISORDERS OF DIAPHRAGM (15) Chronic hypoxemic respiratory failure Code(s): J96.11 - CHRONIC RESPIRATORY FAILURE WITH HYPOXIA (16) COPD (chronic obstructive pulmonary disease) Code(s): J44.9 - CHRONIC OBSTRUCTIVE PULMONARY DISEASE, UNSPECIFIED Assessment/Plan IMP ACUTE ON CHRONIC CHF IMPROVING CHRONIC HYPOXEMIC RESPIRATORY FAILURE COPD ON O2 ASHD S/P CABG S/P AVR LEFT DIAPHRAGMATIC PARALYSIS S/P PPM/AICD AFIB HYPOTHYROIDISM JERALD NOT ON CPAP PLAN LASIX PO O2 DAILY [facility] INHALED BRONCHODILATORS MONITOR LILIAN MORRISSEY Problem List - Problems (1) Acute on chronic systolic CHF (congestive heart failure) Code(s): I50.23 - ACUTE ON CHRONIC SYSTOLIC (CONGESTIVE) HEART FAILURE (2) CHF exacerbation Code(s): I50.9 - HEART FAILURE, UNSPECIFIED Qualifiers: Congestive heart failure type: unspecified congestive heart failure type Qualified Code(s): I50.9 - Heart failure, unspecified (3) Shortness of breath Code(s): R06.02 - SHORTNESS OF BREATH (4) Systolic and diastolic CHF w/reduced LV function, NYHA class 4 Code(s): I50.40 - UNSP COMBINED SYSTOLIC AND DIASTOLIC (CONGESTIVE) HRT FAIL (5) Anxiety Code(s): F41.9 - ANXIETY DISORDER, UNSPECIFIED (6) Aortic valve replaced Code(s): Z95.2 - PRESENCE OF PROSTHETIC HEART VALVE (7) CAD (coronary artery disease) Code(s): I25.10 - ATHSCL HEART DISEASE OF [place] CORONARY ARTERY W/O ANG PCTRS (8) Hx of CABG Code(s): Z95.1 - PRESENCE OF AORTOCORONARY BYPASS GRAFT (9) Hypertension Code(s): I10 - ESSENTIAL (PRIMARY) HYPERTENSION (10) Hypothyroidism Code(s): E03.9 - HYPOTHYROIDISM, UNSPECIFIED (11) ICD (implantable cardioverter-defibrillator) in place Code(s): Z95.810 - PRESENCE OF AUTOMATIC (IMPLANTABLE) CARDIAC DEFIBRILLATOR (12) Sleep apnea in adult Code(s): G47.33 - OBSTRUCTIVE SLEEP APNEA (ADULT) (PEDIATRIC) (13) Valvular heart disease Code(s): I38 - ENDOCARDITIS, VALVE UNSPECIFIED (14) Diaphragm paralysis Code(s): J98.6 - DISORDERS OF DIAPHRAGM (15) Chronic hypoxemic respiratory failure Code(s): J96.11 - CHRONIC RESPIRATORY FAILURE WITH HYPOXIA (16) COPD (chronic obstructive pulmonary disease) Code(s): J44.9 - CHRONIC OBSTRUCTIVE PULMONARY DISEASE, UNSPECIFIED
[2016-12-06 11:00] VITALS: TEMP 98.1
--- NOTE | 2016-12-06 12:21 | PN ---
Progress Note, Physician History of Present Illness: Pt seen and examined at bedside. She is awake and alert. She feels that her breathing is improved. - Current Medication List Current Medications: Active Medications Acetaminophen (Tylenol -) 650 mg PO Q4H PRN PRN Reason: FEVER OR PAIN Last Admin: 11/30/16 19:33 Dose: 650 mg Aspirin (Asa -) 81 mg PO DAILY [facility] Last Admin: 12/06/16 10:17 Dose: Not Given Budesonide/Formoterol Fumarate (Symbicort 80/4.5mcg -) 1 puff IH BID [facility] Last Admin: 12/06/16 10:18 Dose: Not Given Clopidogrel Bisulfate (Plavix -) 75 mg PO DAILY [facility] Last Admin: 12/06/16 10:17 Dose: Not Given Docusate Sodium (Colace -) 100 mg PO BID [facility] Last Admin: 12/06/16 10:17 Dose: Not Given Enoxaparin Sodium (Lovenox -) 40 mg SQ DAILY [facility] Last Admin: 12/06/16 10:17 Dose: Not Given Furosemide (Lasix -) 80 mg PO BID@0600,1400 [facility] Last Admin: 12/06/16 06:29 Dose: 80 mg Guaifenesin (Robitussin -) 10 ml PO Q4H PRN PRN Reason: COUGH Last Admin: 12/03/16 21:48 Dose: 10 ml Levothyroxine Sodium (Synthroid -) 75 mcg PO DAILY@0700 [facility] Last Admin: 12/06/16 06:29 Dose: 75 mcg Lisinopril (Prinivil) 2.5 mg PO DAILY [facility] Last Admin: 12/06/16 10:17 Dose: Not Given Metolazone (Zaroxolyn -) 5 mg PO DAILY@0530 [facility] Last Admin: 12/06/16 05:53 Dose: 5 mg Metoprolol Succinate (Toprol Xl -) 25 mg PO BID [facility] Last Admin: 12/06/16 10:18 Dose: Not Given Tiotropium [place] (Spiriva -) 1 puff IH DAILY [facility] Last Admin: 12/06/16 10:17 Dose: Not Given - Objective Vital Signs: Vital Signs Temperature 98.1 F 12/06/16 10:00 Pulse Rate 75 12/06/16 10:00 Respiratory Rate 20 12/06/16 10:00 Blood Pressure 101/42 12/06/16 10:00 O2 Sat by Pulse Oximetry (%) 98 12/06/16 10:00 Constitutional: Yes: Calm Eyes: Yes: Conjunctiva Clear HENT: Yes: Atraumatic Neck: Yes: Supple Cardiovascular: Yes: S1, S2 Respiratory: Yes: On Nasal O2 Gastrointestinal: Yes: Soft Edema: Yes Edema: LLE: Trace, RLE: Trace Neurological: Yes: Oriented Psychiatric: Yes: Oriented Labs: CBC, BMP 12/06/16 06:05 12/06/16 06:05 INR, PTT INR 1.09 (0.82-1.09) 11/22/16 21:29 Problem List - Problems (1) Acute on chronic systolic CHF (congestive heart failure) Code(s): I50.23 - ACUTE ON CHRONIC SYSTOLIC (CONGESTIVE) HEART FAILURE Assessment/Plan Current Medications Generic Name Dose Route Start Last Admin Trade Name Freq PRN Reason Stop Dose Admin Acetaminophen 650 mg 11/25/16 14:38 11/30/16 19:33 Tylenol - PO 650 mg Q4H PRN Administration FEVER OR PAIN Aspirin 81 mg 11/23/16 10:00 12/06/16 10:17 Asa - PO Not Given DAILY [facility] Budesonide/Formoterol Fumarate 1 puff 11/23/16 10:00 12/06/16 10:18 Symbicort 80/4.5mcg - IH Not Given BID [facility] Clopidogrel Bisulfate 75 mg 11/23/16 10:00 12/06/16 10:17 Plavix - PO Not Given DAILY [facility] Docusate Sodium 100 mg 11/23/16 10:00 12/06/16 10:17 Colace - PO Not Given BID [facility] Enoxaparin Sodium 40 mg 12/01/16 10:00 12/06/16 10:17 Lovenox - SQ Not Given DAILY [facility] Furosemide 80 mg 12/05/16 14:00 12/06/16 06:29 Lasix - PO 80 mg BID@0600,1400 [facility] Administration Guaifenesin 10 ml 11/25/16 14:38 12/03/16 21:48 Robitussin - PO 10 ml Q4H PRN Administration COUGH Levothyroxine Sodium 75 mcg 11/23/16 10:30 12/06/16 06:29 Synthroid - PO 75 mcg DAILY@0700 [facility] Administration Lisinopril 2.5 mg 11/23/16 10:00 12/06/16 10:17 Prinivil PO Not Given DAILY [facility] Metolazone 5 mg 12/01/16 15:15 12/06/16 05:53 Zaroxolyn - PO 5 mg DAILY@0530 [facility] Administration Metoprolol Succinate 25 mg 11/23/16 10:00 12/06/16 10:18 Toprol Xl - PO Not Given BID [facility] Tiotropium [place] 1 puff 11/29/16 13:00 12/06/16 10:17 Spiriva - IH Not Given DAILY [facility] Selected Entries 12/06/16 06:00 Weight 158 lb 12.8 oz 1. dyspnea 2. CHF exacerbation 3. paralyzed hemidiaphragm 4. HTN 5. valvular heart disease 6. azotemia 7. hypothyroid 8. CAD 9. hyponatremia 10. fluid overload Plan - can decrease lasix to 60 mg po BID and cont with metolazone - will see in office next week - pts weight is 158 which is down from about 171 on admission - daily weights - fluid restrict - monitor bp Dr Bella
--- NOTE | 2016-12-06 12:54 | PN ---
Teaching Attending Note Name of Resident: Carlo Cisneros ATTENDING PHYSICIAN STATEMENT I saw and evaluated the patient. I reviewed the resident's note and discussed the case with the resident. I agree with the resident's findings and plan as documented. SUBJECTIVE: Patient feels much better. 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 Acute on chronic systolic CHF exacerbation-clinically improved. continues to loose weight. will transition to lasix po as pt now becoming alkalotic with BETTIE. monitor on lasix 80mg BID (home dose). due to frequent admissions due to rapidly re-accumulation of volume will monitor pt on lasix po. cont metaolozone. cardio and renal on board. strict I&O, daily weights, fluid restriction 2. NSVT- unable to titrate up betablocker due to BP. will cont to monitor. Mg level elevated 3. Hyperkalemia- resolved. on low dose acei 4. CAD s/p CABG with PPM- no signs of ACS. 5. HTN- controlled 6. 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 cont management 7. DVT ppx- hep sq
[2016-12-06 13:46] VITALS: BP 95/41; PULSE 70
[2016-12-06] MEDS ORDERED: FUROSEMIDE 40 MG TABLET (FP) PO SCH (14:00)
--- NOTE | 2016-12-06 20:41 | DS ---
Physical Exam: SUBJECTIVE: Patient seen and examined at bedside. No events overnight Patient states that her condition is greatly improved and that she wishes to go home. Swelling of legs better today. Patient is stable for discharge today. OBJECTIVE: Vital Signs Period Temp Pulse Resp BP Sys/Camilo Pulse Ox Last 24 Hr 97.8 F-98.1 F 56-81 20-20 95-108/41-56 98-99 PHYSICAL EXAM GENERAL: The patient is awake, alert, and fully oriented, in no acute distress. HEAD: Normal with no signs of trauma. EYES: extraocular movements intact, sclera anicteric, conjunctiva clear. LUNGS: Breath sounds equal, clear to auscultation bilaterally, no wheezes, no crackles, no accessory muscle use. HEART: Regular rate and rhythm, S1, S2 without murmur, rub or gallop. ABDOMEN: Soft, nontender, nondistended, normoactive bowel sounds, no guarding, no rebound. EXTREMITIES: 2+ pulses, warm, well-perfused, no edema. NEUROLOGICAL: Cranial nerves II through X grossly intact. Normal speech, gait not observed. PSYCH: Normal mood, normal affect. SKIN: Warm, dry, normal turgor, no rashes or lesions noted. LABS Laboratory Results - last 24 hr 12/06/16 12/06/16 06:05 06:05 WBC 9.2 RBC 4.48 Hgb 11.8 D Hct 36.0 MCV 80.3 MCH 26.3 MCHC 32.7 RDW 15.9 H Plt Count 339 D MPV 8.9 Sodium 131 L Potassium 4.3 Chloride 83 L Carbon Dioxide 40 H Anion Gap 8 BUN 50 H Creatinine 1.0 Random Glucose 91 D Calcium 9.6 Magnesium 2.6 H HOSPITAL COURSE: Date of Admission:11/23/16 81yo F with PMH of CHF, asthma/COPD, afib, s/p CABG, AVR (with phrenic nerve damage and subsequent diaphragm dysfunction), and pacemaker/defibrillator presents c/o increased jayden LE edema x 2 weeks and increased SOB with exertion x 1 week. Patient had a recent admission in october for similar symptoms. Her chest X-ray showed congestive changes [place] [id number]. Patient was admitted for an acute CHF exacerbation. The patient was by Dr. Ingram from cardiology. The patient was also seen by Dr. Bella, her PMD. Over the course of her admission, Lasix and metalozone were used to diurese the patient, eventually leading to a 4kg weight loss. Her hospital course was complicated by hyperkalemia likely secondary to her diuresis which was treated and has since resolved. She responded well to IV diuretics and was discharged on Lasix 40mg BID and metalozone 5mg daily. She was sent home and instructed to follow up with Dr. Bella and Dr. Ingram within one week. Date of Discharge: 12/06/16 Minutes to complete discharge: 35 Discharge Summary Reason For Visit: DIVERTICULITIS,OF INTESTINE,PAIN IN BOTH LOWER EXT Condition: Improved - Instructions Diet, Activity, Other Instructions: Please see your Primary care physician, Dr. Perdue, within one week of discharge. Resume your daily activities as tolerated. Please resume all of your home medications. We have increased your lasix to 60mg twice per day and added a new medication metalozone once daily. these prescriptions have been sent to your pharmacy. please pick them up and start them tomorrow. If any of your symptoms worsen or you develop fever or chills, please return to the ER immediately. Referrals: Sourav Ingram MD [Staff Physician] - Flori Bella MD [Primary Care Provider] - Disposition: HOME - Home Medications Comprehensive Discharge Medication List: Ambulatory Orders Aspirin [ASA -] 81 mg PO DAILY 08/10/15 Budesonide/Formeterol Fumarate [SYMBICORT 80/4.5mcg -] 1 inh PO BID 08/10/15 Tiotropium [place] [Spiriva] 1 inh PO DAILY 08/10/15 Levothyroxine [Synthroid -] 75 mcg PO DAILY 09/16/15 Metoprolol Succinate [Toprol XL -] 25 mg PO BID #60 tab.sr.24h 09/24/15 Docusate Sodium [Colace -] 100 mg PO BID 11/06/15 Clopidogrel Bisulfate [Clopidogrel] 75 mg PO DAILY 03/18/16 Simvastatin [Zocor -] 40 mg PO HS 03/18/16 Spironolactone 12.5 mg PO BID 11/04/16 Lisinopril [Prinivil] 2.5 mg PO DAILY #60 tablet 11/09/16 Furosemide [Lasix -] 60 mg PO BID #60 tablet 12/06/16 Metolazone [Zaroxolyn -] 5 mg PO DAILY #30 tablet 12/06/16 Metolazone [Zaroxolyn -] 5 mg PO DAILY #30 tablet 12/06/16 Problem List - Problems (1) Acute on chronic systolic CHF (congestive heart failure) Code(s): I50.23 - ACUTE ON CHRONIC SYSTOLIC (CONGESTIVE) HEART FAILURE (2) COPD (chronic obstructive pulmonary disease) Code(s): J44.9 - CHRONIC OBSTRUCTIVE PULMONARY DISEASE, UNSPECIFIED (3) CHF NYHA class III Code(s): I50.9 - HEART FAILURE, UNSPECIFIED (4) Shortness of breath Code(s): R06.02 - SHORTNESS OF BREATH (5) Anxiety Code(s): F41.9 - ANXIETY DISORDER, UNSPECIFIED This patient is new to me today: No Emergency Visit: Yes ED Registration Date: 11/23/16 Care time: The patient presented to the Emergency Department on the above date and was hospitalized for further evaluation of their emergent condition. Critical Care patient: No - Discharge Referral Referred to [facility] No
== END 2016-12-06 14:32 | disposition home or self-care (01) | DRG 292 ==
LOC: JER 20:27 → JERBED 11-23 00:16 → J4W 11-23 03:49
PROVIDERS: ADMIT Internal Medicine; ATTEND Internal Medicine
DX: I11.0 Hypertensive heart disease with heart failure (principal); E87.1 Hypo-osmolality and hyponatremia; I47.2 Ventricular tachycardia; J96.11 Chronic respiratory failure with hypoxia; I50.23 Acute on chronic systolic (congestive) heart failure; I25.10 Atherosclerotic heart disease of native coronary artery without angina pectoris; J44.9 Chronic obstructive pulmonary disease, unspecified; D64.9 Anemia, unspecified; I48.91 Unspecified atrial fibrillation; E03.9 Hypothyroidism, unspecified; E78.00 Pure hypercholesterolemia, unspecified; D72.828 Other elevated white blood cell count; E87.5 Hyperkalemia; J98.6 Disorders of diaphragm; N95.8 Other specified menopausal and perimenopausal disorders; F41.0 Panic disorder [episodic paroxysmal anxiety]; F41.8 Other specified anxiety disorders; G47.33 Obstructive sleep apnea (adult) (pediatric); M54.5 Low back pain; E87.79 Other fluid overload; Z88.0 Allergy status to penicillin; Z96.651 Presence of right artificial knee joint; Z87.891 Personal history of nicotine dependence; Z95.1 Presence of aortocoronary bypass graft; Z99.81 Dependence on supplemental oxygen; Z95.2 Presence of prosthetic heart valve; Z95.810 Presence of automatic (implantable) cardiac defibrillator
CPT/HCPCS: 36415; 71010-TC; 80048; 80053; 83735; 83880; 84100; 84443; 84484; 85025; 85027; 85610; 93005; 93010; 93970-TC; 97116-GP; 97161-GP; 99282-25; J1644

== ENCOUNTER 2017-01-12 14:37 | Inpatient (IN) | payer OTHER ==
[2017-01-12] MEDS ORDERED: ONDANSETRON 4 MG/2 ML VIAL ONE (15:28)
[2017-01-12] MEDS ORDERED: ONDANSETRON 4 MG/2 ML VIAL IVPUSH ONE (15:37)
[2017-01-12 15:58] LABS: VENOUS BLOOD GAS HCO3 41.4 meq/L (19-25)
[2017-01-12 16:01] LABS: VENOUS PH 7.56 (7.32-7.42)
[2017-01-12 16:04] LABS: URINE APPEARANCE SLCLOUDY; URINE BILIRUBIN NEGATIVE (NEGATIVE); URINE BLOOD NEGATIVE (NEGATIVE); URINE COLOR DKYELLOW; URINE GLUCOSE (UA) NEGATIVE (NEGATIVE); URINE KETONE TRACE (NEGATIVE); URINE NITRITE NEGATIVE (NEGATIVE); URINE PROTEIN NEGATIVE (NEGATIVE)
[2017-01-12 16:05] LABS: BASOPHIL 0.6 % (0-2.0); EOSINOPHIL 1.6 % (0-4.5); MCH 26.3 pg (25.7-33.7); MCHC 33.6 g/dl (32.0-36.0); MEAN CELL VOLUME 78.4 fl (80-96); MEAN PLT VOLUME 9.6 fl (7.5-11.1); NEUTROPHILS 75.9 % (42.8-82.8); PLATELET COUNT 310 K/MM3 (134-434); RDW 15.2 % (11.6-15.6); WHITE BLOOD COUNT 11.5 K/mm3 (4.0-10.0)
--- NOTE | 2017-01-12 16:09 | PDOC ---
History of Present Illness - General Chief Complaint: Weakness Stated Complaint: WEAKNESS Time Seen by Provider: 01/12/17 16:08 - History of Present Illness Initial Comments: 01/12/17 16:09 Ms. Hou is an 81 yo female with a significant past medical history of CHF, CAD s/p CABG +PPM AVR, HTN, who presents with significant abdominal discomfort after trial of oral antibiotics for UTI. PCP called to alert of presentation to ER, ID consulted as patient has extensive allergies to medication. The patient denies chest pain, shortness of breath, headache and dizziness. Denies fever, chills, nausea, vomit, diarrhea and constipation. Reports her dysuria has decreased but is not gone, still has frequency and urgency. 01/12/17 18:48 Past History - Past Medical History Allergies/Adverse Reactions: Allergies Allergy/AdvReac Type Severity Reaction Status Date / Time albuterol Allergy Hives Verified 01/12/17 14:59 ciprofloxacin Allergy Rash Verified 01/12/17 14:59 clindamycin Allergy Hives Verified 01/12/17 14:59 lactose [Lactose] Allergy Nausea Verified 01/12/17 14:59 levofloxacin [From Levaquin] Allergy Rash Verified 01/12/17 14:59 Penicillins Allergy Swelling Verified 01/12/17 14:59 Shellfish Allergy Difficulty Verified 01/12/17 14:59 Breathing Sulfa (Sulfonamide Allergy Rash Verified 01/12/17 14:59 Antibiotics) trimethobenzamide HCl Allergy Rash Verified 01/12/17 14:59 [From Tigan] atorvastatin calcium AdvReac Unknown "muscle Verified 01/12/17 14:59 [From Lipitor] weakness" morphine AdvReac Unknown blurred Verified 01/12/17 14:59 vision Home Medications: Ambulatory Orders Aspirin [ASA -] 81 mg PO DAILY 08/10/15 Budesonide/Formeterol Fumarate [SYMBICORT 80/4.5mcg -] 1 inh PO BID 08/10/15 Tiotropium [place] [Spiriva] 1 inh PO DAILY 08/10/15 Levothyroxine [Synthroid -] 75 mcg PO DAILY 09/16/15 Metoprolol Succinate [Toprol XL -] 25 mg PO BID #60 tab.sr.24h 09/24/15 Docusate Sodium [Colace -] 100 mg PO BID 11/06/15 Clopidogrel Bisulfate [Clopidogrel] 75 mg PO DAILY 03/18/16 Simvastatin [Zocor -] 40 mg PO HS 03/18/16 Spironolactone 12.5 mg PO BID 11/04/16 Lisinopril [Prinivil] 2.5 mg PO DAILY #60 tablet 11/09/16 Furosemide [Lasix -] 60 mg PO BID #60 tablet 12/06/16 Metolazone [Zaroxolyn -] 5 mg PO DAILY #30 tablet 12/06/16 Metolazone [Zaroxolyn -] 5 mg PO DAILY #30 tablet 12/06/16 Anemia: No Asthma: Yes Cancer: No Cardiac Disorders: Yes (CHF, , AVR(bioprosthetic) , CAD, CABG, Afib) CVA: No COPD: Yes (02 DEPENDANT 3L NC) CHF: Yes Dementia: No Diabetes: No GI Disorders: No Disorders: No HTN: Yes Hypercholesterolemia: Yes Liver Disease: No Seizures: No Thyroid Disease: Yes (HYPO.) - Surgical History Abdominal Surgery: No Appendectomy: Yes Cardiac Surgery: Yes (BYPASS-triple 14 years ago, AVR bioprosthetic 04/23, Pmarker&defib) Cholecystectomy: Yes Lung Surgery: No Neurologic Surgery: No Orthopedic Surgery: Yes (TKR right) - Immunization History Immunization Up to Date: Yes - Suicide/Smoking/Psychosocial Hx Smoking Status: No Smoking History: Unknown if ever smoked Have you smoked in the past 12 months: No Number of Cigarettes Smoked Daily: 0 If you are a former smoker, when did you quit?: 21 YRS Information on smoking cessation initiated: No Hx Alcohol Use: No Drug/Substance Use Hx: No Substance Use Type: None Hx Substance Use Treatment: No Review of Systems - Review of Systems Comments:: 01/12/17 16:09 GENERAL/CONSTITUTIONAL: No fever or chills. No weakness. HEAD, EYES, EARS, NOSE AND THROAT: No change in vision. No ear pain or discharge. No sore throat. CARDIOVASCULAR: No chest pain or shortness of breath RESPIRATORY: No cough, wheezing, or hemoptysis. GASTROINTESTINAL: +2 days of nausea without vomiting, diarrhea or constipation. GENITOURINARY: +Continued dysuria and frequency MUSCULOSKELETAL: No joint or muscle swelling or pain. No neck or back pain. SKIN: No rash NEUROLOGIC: No headache, vertigo, loss of consciousness, or change in strength/ sensation. ENDOCRINE: No increased thirst. No abnormal weight change HEMATOLOGIC/LYMPHATIC: No anemia, easy bleeding, or history of blood clots. ALLERGIC/IMMUNOLOGIC: No hives or skin allergy. *Physical Exam - Vital Signs Last Vital Signs Temp Pulse Resp BP Pulse Ox 97.7 F 75 18 134/90 98 01/12/17 14:40 01/12/17 14:40 01/12/17 14:40 01/12/17 14:40 01/12/17 15:05 - Physical Exam Comments: 01/12/17 16:09 GENERAL: Awake, alert, and fully oriented, in no acute distress HEAD: No signs of trauma, normocephalic, atraumatic EYES: PERRLA, EOMI, sclera anicteric, conjunctiva clear ENT: Auricles normal inspection, hearing grossly normal, nares patent, oropharynx clear without exudates. Moist mucosa NECK: Normal ROM, supple, no lymphadenopathy, JVD, or masses LUNGS: No distress, speaks full sentences, clear to auscultation bilaterally HEART: Regular rate and rhythm, normal S1 and S2, no murmurs, rubs or gallops, peripheral pulses normal and equal bilaterally. ABDOMEN: Soft, nontender, normoactive bowel sounds. No guarding, no rebound. No masses EXTREMITIES: Normal inspection, Normal range of motion, no edema. No clubbing or cyanosis. NEUROLOGICAL: Cranial nerves II through XII grossly intact. Normal speech, normal gait, no focal sensorimotor deficits SKIN: Warm, Dry, normal turgor, no rashes or lesions noted. ED Treatment Course - LABORATORY CBC & Chemistry Diagram: 01/12/17 15:45 01/12/17 15:45 - ADDITIONAL ORDERS Additional order review: Laboratory Results 01/12/17 01/12/17 15:45 15:45 VBG pH 7.56 H POC VBG pCO2 46.1 POC VBG pO2 65.4 H Mixed VBG HCO3 41.4 H* Urine Color Dkyellow Urine Appearance Slcloudy Urine pH 5.0 Urine Protein Negative Urine Glucose (UA) Negative Urine Ketones Trace H Urine Blood Negative Urine Nitrite Negative Urine Bilirubin Negative Urine Urobilinogen 2.0 H - Medications Given in the ED: ED Medications Discontinued Medications Generic Name Dose Route Start Last Admin Trade Name Freq PRN Reason Stop Dose Admin Ondansetron HCl 4 mg 01/12/17 15:37 01/12/17 15:47 Zofran Injection IVPUSH 01/12/17 15:38 4 mg NOW ONE Administration Medical Decision Making - Medical Decision Making 01/12/17 18:51 Patient presents after failing oral antibiotics outpatient for UTI. With extensive allergies, ID consulted for antibiotic choice and patient placed on tobramycin 250mg. Will be admitted for continued treatment. *DC/Admit/Observation/Transfer Diagnosis at time of Disposition: UTI (urinary tract infection) Qualifiers: Urinary tract infection type: site unspecified Hematuria presence: without hematuria Qualified Code(s): N39.0 - Urinary tract infection, site not specified - Discharge Dispostion Admit: Yes - Referrals Referrals: Flori Bella MD [Primary Care Provider] -
[2017-01-12 16:16] LABS: INR 1.12 (0.82-1.09); PROTHROMBIN TIME (PATIENT) 12.4 SEC (9.98-11.88)
[2017-01-12 16:17] LABS: ALBUMIN 3.1 g/dl (3.4-5.0); ANION GAP 9 (8-16); BILIRUBIN,TOTAL 0.7 mg/dL (0.2-1.0); CALCIUM 9.4 mg/dL (8.5-10.1); CO2 41 mmol/L (21-32); CREATININE 0.9 mg/dL (0.55-1.02); GLUCOSE,RANDOM 98 mg/dL (74-106); SGOT/AST 21 U/L (15-37); SGPT/ALT 17 U/L (12-78); TOT PROT 7.2 g/dl (6.4-8.2)
[2017-01-12 16:19] LABS: ALK PHOS 119 U/L (45-117); CPK 29 IU/L (26-192); TROPONIN I 0.03 ng/ml (0.00-0.05)
[2017-01-12] MEDS ORDERED: TOBRAMYCIN SULFATE IVPB ONE (16:26)
[2017-01-12] MEDS ORDERED: SODIUM CHLORIDE IVPB ONE (16:26)
[2017-01-12] MEDS ORDERED: TOBRAMYCIN SULFATE 250 MG in SODIUM CHLORIDE 100 ML IVPB ONE (16:33)
--- NOTE | 2017-01-12 16:42 | PN ---
Progress Note (short form) - Note Progress Note: ID Consult dictated Recurrent UTI Multiple antibiotic allergies Await c/s Tobramycin 250mg IVPB x 1 Check level am
--- NOTE | 2017-01-12 18:50 | PDOC ---
Attending Attestation - ED Attending Attestation I have performed the following: I have examined & evaluated the patient, The case was reviewed & discussed with the resident, I agree w/resident's findings & plan, Exceptions are as noted - HPI HPI: 01/12/17 18:45 81 yo F with h/o CHF, CAD s/p CABG +PPM AVR, HTN here with persistant uti. pt c /o nausea, no vomiting. and abd pain. has been on abx for uti, macrobid for 4 days. . pt primary doctor is dr. Bella. no other complaints. no f/c. but persistant dysuria. - Physicial Exam PE: 01/12/17 18:48 awake alert lungs clear . heart rrr no mrg. abd soft mild epigastric ttp. no rebound no guarding. skin warm and dry. alert oriented x 3. - Medical Decision Making 01/12/17 18:49 81 yo F with h/o resistant UTI, on macrobid, several allergies. will admit for uti, dr. alvarez consulted for ID recommend tobramycin. 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
[2017-01-12 19:01] LABS: URINE LEUK ESTERASE Negative (NEGATIVE)
--- NOTE | 2017-01-12 19:56 | CONS ---
DATE OF CONSULTATION: DATE OF DICTATION: 01/12/2017 INFECTIOUS DISEASE CONSULTATION HISTORY OF PRESENT ILLNESS: The patient is an 81-year-old female who is evaluated for urinary tract infection. She reports a several-day history of dysuria and suprapubic discomfort associated with urinary urgency and frequency. She has had a history of urinary tract infections in the past. As an outpatient, she was diagnosed with E. coli urinary tract infection despite a course of nitrofurantoin. She did not achieve relief. She has a history of multiple ANTIBIOTIC allergies. She denies any associated fever or chills. PAST MEDICAL HISTORY: Positive for atrial fibrillation, congestive heart failure, heart failure, cardiomyopathy, diverticulosis, COPD, coronary artery disease, hypothyroidism. PAST SURGICAL HISTORY: Status post aortic valve replacement with bioprosthetic valve, coronary artery bypass, permanent pacemaker, total knee replacement, appendectomy, cholecystectomy, and hysterectomy. ALLERGIES: CIPRO, LEVAQUIN, CLINDAMYCIN, ZOFRAN, PENICILLIN with recent PENICILLIN allergies, developed throat swelling 59 years ago, she developed a rash also. She has been successfully treated in the past with aminoglycosides. SOCIAL HISTORY: She is a former smoker. She resides at home. SYSTEMS REVIEW: Neurologic: No loss of consciousness, seizure activity, or focal weakness. Cardiac: Negative chest pain or palpitations. Respiratory: Negative cough or sputum production. Gastrointestinal: Negative vomiting or diarrhea. Genitourinary: As per HPI. LABORATORY: hematocrit 36.4, platelet count , BUN 10, creatinine 1.0. Urinalysis and urine culture pending. Outpatient urine culture grew E. coli sensitive to tobramycin. PHYSICAL EXAMINATION: General: Patient is awake and alert, in moderate distress secondary to suprapubic discomfort. Vital signs: Temperature 97.7, blood pressure 134/90, pulse 18 regular. HEENT: Sclerae anicteric. Cardiovascular: Heart sounds irregular S1, S2. Respiratory: Lungs clear. Abdomen: Soft. There is mild suprapubic tenderness, no flank tenderness. Extremities: Positive for edema. IMPRESSION: 1. Recurrent urinary tract infection. 2. Multiple antibiotic allergies. 3. Status post aortic valve replacement. RECOMMENDATION: Obtain blood cultures. Await repeat urine culture. Empiric antibiotic coverage in this patient with multiple antibiotic allergies, with tobramycin 250 mg IV piggyback stat dose. Will check tobramycin level in the a.m. and re-dose accordingly. Will follow. Thank you for the kind referral. CHATA DYER M.D. [id number]
--- NOTE | 2017-01-12 20:12 | HP ---
CHIEF COMPLAINT: Dysuria, Nausea and Weakness PCP: Dr. Flori Bella HISTORY OF PRESENT ILLNESS: This is a 81 y/o woman with a past medical history of recurrent UTIs and multiple drug allergies. Who presents to the ED with dysuria, nausea and generalized weakness x today. Patient reports having painful urination radiating to her R- flank which started on Monday, she called her PCP had a urinalysis done which was + for UTI, she was started on antibiotics. Patient reports no improvement since being on the antibiotics. Patient denies fever, chills, cough, SOB, CP, V/D, constipation. ER course was notable for: (1) WBC 11.5 (2) Na 126 (3) K 3.2 Recent Travel: None PAST MEDICAL HISTORY: Asthma CHF CAD A-fib COPD (O2 dependent) Hypothyroid PAST SURGICAL HISTORY: Triple Bypass (14 yrs ago) AVR bioprosthetic (04/23) Pacemaker/Defib Cholecystectomy Hysterectomy R- TKR Social History: Smoking: Never Alcohol: None Drugs: Family History: Allergies albuterol Allergy (Verified 01/12/17 14:59) Hives ciprofloxacin Allergy (Verified 01/12/17 14:59) Rash clindamycin Allergy (Verified 01/12/17 14:59) Hives lactose [Lactose] Allergy (Verified 01/12/17 14:59) Nausea levofloxacin [From Levaquin] Allergy (Verified 01/12/17 14:59) Rash Penicillins Allergy (Verified 01/12/17 14:59) Swelling Shellfish Allergy (Verified 01/12/17 14:59) Difficulty Breathing Sulfa (Sulfonamide Antibiotics) Allergy (Verified 01/12/17 14:59) Rash trimethobenzamide HCl [From Tigan] Allergy (Verified 01/12/17 14:59) Rash atorvastatin calcium [From Lipitor] Adverse Reaction (Unknown, Verified 14:59) "muscle weakness" zocor ok as per patient morphine Adverse Reaction (Unknown, Verified 01/12/17 14:59) blurred vision HOME MEDICATIONS: Home Medications Medication Instructions Recorded Aspirin [ASA -] 81 mg PO DAILY 08/10/15 Budesonide/Formeterol Fumarate 1 inh PO BID 08/10/15 [SYMBICORT 80/4.5mcg -] Tiotropium [place] [Spiriva] 1 inh PO DAILY 08/10/15 Levothyroxine [Synthroid -] 75 mcg PO DAILY 09/16/15 Metoprolol Succinate [Toprol XL -] 25 mg PO BID #60 tab.sr.24h 09/24/15 Docusate Sodium [Colace -] 100 mg PO BID 11/06/15 Clopidogrel Bisulfate [Clopidogrel] 75 mg PO DAILY 03/18/16 Simvastatin [Zocor -] 40 mg PO HS 03/18/16 Spironolactone 12.5 mg PO BID 11/04/16 Lisinopril [Prinivil] 2.5 mg PO DAILY #60 tablet 11/09/16 Furosemide [Lasix -] 60 mg PO BID #60 tablet 12/06/16 Metolazone [Zaroxolyn -] 5 mg PO DAILY #30 tablet 12/06/16 Metolazone [Zaroxolyn -] 5 mg PO DAILY #30 tablet 12/06/16 REVIEW OF SYSTEMS CONSTITUTIONAL: generalized weakness Absent: fever, chills, diaphoresis, malaise, loss of appetite, weight change HEENT: Absent: rhinorrhea, nasal congestion, throat pain, throat swelling, difficulty swallowing, mouth swelling, ear pain, eye pain, visual changes CARDIOVASCULAR: Absent: chest pain, syncope, palpitations, irregular heart rate, lightheadedness , peripheral edema RESPIRATORY: Absent: cough, shortness of breath, dyspnea with exertion, orthopnea, wheezing, stridor, hemoptysis GASTROINTESTINAL: nausea Absent: abdominal pain, abdominal distension, vomiting, diarrhea, constipation, melena, hematochezia GENITOURINARY: dysuria, flank pain Absent: frequency, urgency, hesitancy, hematuria, genital pain MUSCULOSKELETAL: Absent: myalgia, arthralgia, joint swelling, back pain, neck pain SKIN: Absent: rash, itching, pallor HEMATOLOGIC/IMMUNOLOGIC: Absent: easy bleeding, easy bruising, lymphadenopathy, frequent infections ENDOCRINE: Absent: unexplained weight gain, unexplained weight loss, heat intolerance, cold intolerance NEUROLOGIC: Absent: headache, focal weakness or paresthesias, dizziness, unsteady gait, seizure, mental status changes, bladder or bowel incontinence PSYCHIATRIC: Absent: anxiety, depression, suicidal or homicidal ideation, hallucinations. PHYSICAL EXAMINATION Vital Signs - 24 hr 01/12/17 19:37 Pulse Rate [ 94 H Radial] Respiratory 17 Rate Blood Pressure 122/78 [Right Arm] O2 Sat by Pulse 99 Oximetry (%) GENERAL: Anxious, awake, alert, and fully oriented, in no acute distress. HEAD: Normal with no signs of trauma. EYES: Pupils equal, round and reactive to light, extraocular movements intact, sclera anicteric, conjunctiva clear. No lid lag. EARS, NOSE, THROAT: Dry mucous membranes. Ears normal, nares patent, oropharynx clear without exudates. NECK: Normal range of motion, supple without lymphadenopathy, JVD, or masses. LUNGS: Breath sounds diminished at bases. No wheezes, and no crackles. No accessory muscle use. HEART: Irregular rate and rhythm, normal S1 and S2 without murmur, rub or gallop. ABDOMEN: Soft, obese, nontender, not distended, normoactive bowel sounds, no guarding, no rebound, no masses. No hepatomegaly or splenomegaly. MUSCULOSKELETAL: Normal range of motion at all joints. No bony deformities or tenderness. No CVA tenderness. UPPER EXTREMITIES: 2+ pulses, warm, well-perfused. No cyanosis. No clubbing. No peripheral edema. LOWER EXTREMITIES: 2+ pulses, warm, well-perfused. No calf tenderness. No peripheral edema. NEUROLOGICAL: Cranial nerves II-XII intact. Normal speech. Gait not observed. PSYCHIATRIC: Cooperative. Good eye contact. Appropriate mood and affect. SKIN: Warm, dry, normal turgor, no rashes or lesions noted, normal capillary refill. Laboratory Results - last 24 hr 01/12/17 01/12/17 01/12/17 15:40 15:45 15:45 WBC 11.5 H RBC 4.65 Hgb 12.2 Hct 36.4 MCV 78.4 L MCH 26.3 MCHC 33.6 RDW 15.2 Plt Count 310 MPV 9.6 Neutrophils % 75.9 Lymphocytes % 8.4 D Monocytes % 13.5 H Eosinophils % 1.6 Basophils % 0.6 PT with INR 12.40 H INR 1.12 VBG pH POC VBG pCO2 POC VBG pO2 Mixed VBG HCO3 Sodium Potassium Chloride Carbon Dioxide Anion Gap BUN Creatinine Creat Clearance w eGFR Random Glucose Lactic Acid 1.1 Calcium Total Bilirubin AST ALT Alkaline Phosphatase Creatine Kinase Troponin I Total Protein Albumin Urine Color Urine Appearance Urine pH Ur Specific [place] Urine Protein Urine Glucose (UA) Urine Ketones Urine Blood Urine Nitrite Urine Bilirubin Urine Urobilinogen Ur Leukocyte Esterase 01/12/17 01/12/17 01/12/17 15:45 15:45 15:45 WBC RBC Hgb Hct MCV MCH MCHC RDW Plt Count MPV Neutrophils % Lymphocytes % Monocytes % Eosinophils % Basophils % PT with INR INR VBG pH 7.56 H POC VBG pCO2 46.1 POC VBG pO2 65.4 H Mixed VBG HCO3 41.4 H* Sodium 126 L Potassium 3.2 L D Chloride 76 L Carbon Dioxide 41 H Anion Gap 9 BUN 53 H Creatinine 0.9 Creat Clearance w eGFR 59.80 Random Glucose 98 Lactic Acid Calcium 9.4 Total Bilirubin 0.7 AST 21 D ALT 17 Alkaline Phosphatase 119 H D Creatine Kinase 29 Troponin I 0.03 Total Protein 7.2 Albumin 3.1 L Urine Color Dkyellow Urine Appearance Slcloudy Urine pH 5.0 Ur Specific [place] 1.010 Urine Protein Negative Urine Glucose (UA) Negative Urine Ketones Trace H Urine Blood Negative Urine Nitrite Negative Urine Bilirubin Negative Urine Urobilinogen 2.0 H Ur Leukocyte Esterase Negative 01/12/17 20:50 WBC RBC Hgb Hct MCV MCH MCHC RDW Plt Count MPV Neutrophils % Lymphocytes % Monocytes % Eosinophils % Basophils % PT with INR INR VBG pH POC VBG pCO2 POC VBG pO2 Mixed VBG HCO3 Sodium Potassium Chloride Carbon Dioxide Anion Gap BUN Creatinine Creat Clearance w eGFR Random Glucose Lactic Acid 1.4 Calcium Total Bilirubin AST ALT Alkaline Phosphatase Creatine Kinase Troponin I Total Protein Albumin Urine Color Urine Appearance Urine pH Ur Specific [place] Urine Protein Urine Glucose (UA) Urine Ketones Urine Blood Urine Nitrite Urine Bilirubin Urine Urobilinogen Ur Leukocyte Esterase ASSESSMENT/PLAN: This is a 81 y/o woman with a PMHx of: Asthma, COPD (3LNC), CHF, Afib, CAD, CABG , Hypothyroid. Admitted for UTI secondary to Failed Outpatient Therapy, Hyponatremia, Hypokalemia for further evaluation of their emergent condition. Problem List - Problem (1) UTI (urinary tract infection) Code(s): N39.0 - URINARY TRACT INFECTION, SITE NOT SPECIFIED Qualifiers: Urinary tract infection type: site unspecified Hematuria presence: without hematuria Qualified Code(s): N39.0 - Urinary tract infection, site not specified; N39.0 - Urinary tract infection, site not specified; R31.9 - Hematuria, unspecified; R31.9 - Hematuria, unspecified (2) Hyponatremia Assessment/Plan: - Likely due to medications - Will hold diuretics for now, and continue to monitor - Monitor BMP - Will not give fluids secondary to concern for fluid overload Code(s): E87.1 - HYPO-OSMOLALITY AND HYPONATREMIA (3) Hypokalemia Assessment/Plan: - Likely secondary to diuretic usage - Will replete with KCL - Monitor BMP Code(s): E87.6 - HYPOKALEMIA (4) CAD (coronary artery disease) Assessment/Plan: - Patient denies chest pain - Continue Asa, Toprol, Lisinopril, Plavix - EKG reviewed Code(s): I25.10 - ATHSCL HEART DISEASE OF [place] CORONARY ARTERY W/O ANG PCTRS (5) Systolic and diastolic CHF w/reduced LV function, NYHA class 4 Code(s): I50.40 - UNSP COMBINED SYSTOLIC AND DIASTOLIC (CONGESTIVE) HRT FAIL (6) CHF (congestive heart failure) Assessment/Plan: - Chest Xray- image CM, no infiltrate no effusions, report pending - Will hold diuretics for now, 2/2 hypokalemia, hyponatremia - Continue to monitor Code(s): I50.9 - HEART FAILURE, UNSPECIFIED Qualifiers: Congestive heart failure type: unspecified congestive heart failure type Congestive heart failure chronicity: unspecified congestive heart failure chronicity Qualified Code(s): I50.9 - Heart failure, unspecified; I50.9 - Heart failure, unspecified; I50.9 - Heart failure, unspecified; I50.9 - Heart failure, unspecified (7) Diabetes Assessment/Plan: - BGMs - ISS - Monitor renal function Code(s): E11.9 - TYPE 2 DIABETES MELLITUS WITHOUT COMPLICATIONS (8) Hypertension Assessment/Plan: - Monitor BP - Continue home meds with parameters Code(s): I10 - ESSENTIAL (PRIMARY) HYPERTENSION (9) Anxiety Code(s): F41.9 - ANXIETY DISORDER, UNSPECIFIED (10) Hyperlipidemia Assessment/Plan: - Continue Statin - Monitor LFTs Code(s): E78.5 - HYPERLIPIDEMIA, UNSPECIFIED (11) Hypothyroidism Assessment/Plan: - Continue Levothyroxine - TSH in am Code(s): E03.9 - HYPOTHYROIDISM, UNSPECIFIED (12) Hx of CABG Code(s): Z95.1 - PRESENCE OF AORTOCORONARY BYPASS GRAFT (13) ICD (implantable cardioverter-defibrillator) in place Code(s): Z95.810 - PRESENCE OF AUTOMATIC (IMPLANTABLE) CARDIAC DEFIBRILLATOR (14) Multiple allergies Code(s): Z88.9 - ALLERGY STATUS TO UNSP DRUG/MEDS/BIOL SUBST STATUS (15) Obese Code(s): E66.9 - OBESITY, UNSPECIFIED (16) DVT prophylaxis Assessment/Plan: - OOB - Heparin SQ, monitor closely Code(s): JPP9060 - Visit type - Emergency Visit Emergency Visit: Yes ED Registration Date: 01/12/17 Care time: The patient presented to the Emergency Department on the above date and was hospitalized for further evaluation of their emergent condition. - New Patient This patient is new to me today: Yes Date on this admission: 01/12/17 - Critical Care Critical Care patient: No
[2017-01-12 20:54] VITALS: BMI 29.3
[2017-01-12] MEDS: ONDANSETRON 4 MG/2 ML VIAL IVPUSH PRN (22:57)
[2017-01-13] MEDS: HEPARIN NA (PORCINE) 5,000 UNITS/ML 1ML VIAL SQ SCH ×3 (01:53→17:38)
[2017-01-13] MEDS ORDERED: POTASSIUM CHLORIDE TABS 20 MEQ TABLET.ER (FP) PO ONE (06:39)
[2017-01-13] MEDS ORDERED: LEVOTHYROXINE NA 75 MCG TABLET (FP) PO SCH (07:00)
[2017-01-13 08:33] LABS: BASOPHIL 0.4 % (0-2.0); EOSINOPHIL 2.5 % (0-4.5); MCH 26.2 pg (25.7-33.7); MCHC 33.3 g/dl (32.0-36.0); MEAN CELL VOLUME 78.6 fl (80-96); MEAN PLT VOLUME 8.9 fl (7.5-11.1); NEUTROPHILS 78.7 % (42.8-82.8); PLATELET COUNT 289 K/MM3 (134-434); RDW 15.1 % (11.6-15.6)
[2017-01-13 09:02] LABS: THYROID STIMULATING HORMONE 0.44 uIU/ml (0.358-3.74)
[2017-01-13] MEDS ORDERED: PT OWN MED DRAWER 7, Y5N ONE (09:24)
[2017-01-13 09:31] LABS: ANION GAP 9 (8-16); CALCIUM 9.5 mg/dL (8.5-10.1); CO2 40 mmol/L (21-32); CREATININE 0.9 mg/dL (0.55-1.02); GLUCOSE,RANDOM 98 mg/dL (74-106)
--- NOTE | 2017-01-13 09:42 | EKG ---
Test Reason : Blood Pressure : / mmHG Vent. Rate : 091 BPM Atrial Rate : 091 BPM P-R Int : 160 ms QRS Dur : 160 ms QT Int : 446 ms P-R-T Axes : 080 -23 104 degrees QTc Int : 548 ms Suspect unspecified pacemaker failure Atrial-sensed ventricular-paced rhythm WITH OCCASIONAL atrial-paced complexes ABNORMAL ECG WHEN COMPARED WITH ECG OF 23-NOV-2016 00:17, PREMATURE VENTRICULAR COMPLEXES ARE NO LONGER PRESENT VENT. RATE HAS INCREASED BY 5 BPM Confirmed by CHATA VENCES MD ([id number]) on 01/13/2017 9:42:04 AM Referred By: Confirmed By:CHATA VENCES MD
[2017-01-13] MEDS: METOPROLOL SUCCINATE 25 MG TAB.SR.24H (FP) PO SCH ×2 (09:45→21:51)
[2017-01-13] MEDS: BUDESONIDE/FORMETEROL FUMARATE 80/4.5 mcg INHALER IH SCH ×2 (09:49→21:47)
--- NOTE | 2017-01-13 09:54 | PN ---
Progress Note, Physician History of Present Illness: OOB in chair C/O nausea No c/o abdominal pain, vomiting or diarrhea Denies dysuria/ hematuria No suprapubic or flank pain No fever/ chills Received dose of tobramycin yesterday; level theraputic Cultures pending - Current Medication List Current Medications: Active Medications Aspirin (Asa -) 81 mg PO DAILY [facility] Budesonide/Formoterol Fumarate (Symbicort 80/4.5mcg -) 1 puff IH BID [facility] Clopidogrel Bisulfate (Plavix -) 75 mg PO DAILY [facility] Docusate Sodium (Colace -) 100 mg PO BID [facility] Heparin Sodium (Porcine) (Heparin -) 5,000 unit SQ Q8H-IV [facility] Last Admin: 01/13/17 01:53 Dose: 5,000 unit Levothyroxine Sodium (Synthroid -) 75 mcg PO DAILY@0700 [facility] Last Admin: 01/13/17 06:20 Dose: 75 mcg Lisinopril (Prinivil) 2.5 mg PO DAILY [facility] Metoprolol Succinate (Toprol Xl -) 25 mg PO BID [facility] Non-Formulary Medication (Simvastatin) 40 mg PO HS [facility] Ondansetron HCl (Zofran Injection) 4 mg IVPUSH Q6H PRN PRN Reason: NAUSEA AND/OR VOMITING Last Admin: 01/12/17 22:57 Dose: 4 mg Tiotropium Pedro (Spiriva -) 1 puff IH DAILY [facility] - Objective Vital Signs: Vital Signs Temperature 97.9 F 01/13/17 06:12 Pulse Rate 99 H 01/13/17 06:12 Respiratory Rate 20 01/13/17 06:12 Blood Pressure 121/61 01/13/17 06:12 O2 Sat by Pulse Oximetry (%) 95 01/12/17 20:58 Constitutional: Yes: No Distress, Obese Eyes: Yes: Conjunctiva Clear Cardiovascular: Yes: Regular Rate and Rhythm, S1, S2 Respiratory: Yes: Other (+ crepitations at bases) Gastrointestinal: Yes: Normal Bowel Sounds, Soft, Abdomen, Obese, Other (no suprapubic tenderness). No: Tenderness Genitourinary: No: CVA Tenderness - Left, CVA Tenderness - Right Edema: Yes Labs: CBC, BMP 01/13/17 08:00 01/13/17 08:00 INR, PTT INR 1.12 (0.82-1.09) 01/12/17 15:45 Assessment/Plan Recurrent UTI Hx multiple antibiotic allergies Await c/s Hold tobramycin today; check random level am
[2017-01-13] MEDS ORDERED: METOLAZONE 5 MG TABLET PO SCH (10:00)
[2017-01-13] MEDS ORDERED: SPIRONOLACTONE 25 MG TABLET (FP) PO SCH (10:00)
[2017-01-13] MEDS ORDERED: ASPIRIN 81 MG CHEWABLE TABLETS PO SCH (10:00)
[2017-01-13] MEDS ORDERED: CLOPIDOGREL BISULFATE 75 MG TABLET (FP) PO SCH (10:00)
[2017-01-13] MEDS ORDERED: DOCUSATE SODIUM 100 MG CAPSULE (FP) PO SCH (10:00)
[2017-01-13] MEDS ORDERED: TIOTROPIUM BROMIDE 18 MCG/INH (DEVICE W/ 5 CAPSULES) IH SCH (10:00)
[2017-01-13] MEDS ORDERED: LISINOPRIL 5 MG TABLET (FP) PO SCH (10:00)
[2017-01-13] MEDS: ONDANSETRON 4 MG/2 ML VIAL IVPUSH PRN ×2 (10:06→20:39)
--- NOTE | 2017-01-13 13:48 | PN ---
Physical Exam: SUBJECTIVE: Patient seen and examined. Complaining of abdominal cramping that started several hours ago. Very little PO intake. Last BM x 3 days. No diarrhea. Denies fever, sweats, chills. Denies dysuria, urgency, frequency. OBJECTIVE: Vital Signs Period Temp Pulse Resp BP Sys/Camilo Pulse Ox Last 24 Hr 97.9 F-98.7 F 94-107 17-20 100-130/50-78 95-99 GENERAL: The patient is awake, alert, and fully oriented, in mild distress secondary to abdominal cramps. HEAD: Normal with no signs of trauma. LUNGS: Bibasilar crackles. No wheezing. No accessormy muscle use. HEART: Regular rate and rhythm, S1, S2 without murmur, rub or gallop. ABDOMEN: Soft, diffusely tender, nondistended, normoactive bowel sounds, well- healed surgical scars EXTREMITIES: 2+ pulses, warm, well-perfused, no edema. Left calf tenderness. NEUROLOGICAL: Cranial nerves II through XII grossly intact. Normal speech, gait not observed. Laboratory Results - last 24 hr 01/12/17 01/13/17 01/13/17 20:50 08:00 08:00 WBC 11.0 H RBC 4.53 Hgb 11.9 Hct 35.6 MCV 78.6 L MCH 26.2 MCHC 33.3 RDW 15.1 Plt Count 289 MPV 8.9 Neutrophils % 78.7 Lymphocytes % 6.9 L Monocytes % 11.5 H Eosinophils % 2.5 Basophils % 0.4 Sodium Potassium Chloride Carbon Dioxide Anion Gap BUN Creatinine Random Glucose Lactic Acid 1.4 Calcium TSH Tobramycin Trough 3.0 H* 01/13/17 01/13/17 08:00 08:00 WBC RBC Hgb Hct MCV MCH MCHC RDW Plt Count MPV Neutrophils % Lymphocytes % Monocytes % Eosinophils % Basophils % Sodium Cancelled 125 L Potassium Cancelled 3.3 L Chloride Cancelled 76 L Carbon Dioxide Cancelled 40 H Anion Gap Cancelled 9 BUN Cancelled 53 H Creatinine Cancelled 0.9 Random Glucose Cancelled 98 Lactic Acid Calcium Cancelled 9.5 TSH 0.44 D Tobramycin Trough Active Medications Generic Name Dose Route Start Last Admin Trade Name Freq PRN Reason Stop Dose Admin Aspirin 81 mg 01/13/17 10:00 01/13/17 09:49 Asa - PO 81 mg DAILY [facility] Administration Budesonide/Formoterol Fumarate 1 puff 01/13/17 10:00 01/13/17 09:49 Symbicort 80/4.5mcg - IH 1 puff BID MAGO Administration Clopidogrel Bisulfate 75 mg 01/13/17 10:00 01/13/17 09:48 Plavix - PO 75 mg DAILY [facility]O Administration Docusate Sodium 100 mg 01/13/17 10:00 01/13/17 09:48 Colace - PO 100 mg BID MAGO Administration Heparin Sodium (Porcine) 5,000 unit 01/13/17 02:00 01/13/17 09:48 Heparin - SQ 5,000 unit Q8H-IV [facility]O Administration Levothyroxine Sodium 75 mcg 01/13/17 07:00 01/13/17 06:20 Synthroid - PO 75 mcg DAILY@0700 [facility]O Administration Lisinopril 2.5 mg 01/13/17 10:00 01/13/17 09:48 Prinivil PO 2.5 mg DAILY MAGO Administration Metoprolol Succinate 25 mg 01/13/17 10:00 01/13/17 09:45 Toprol Xl - PO Not Given BID [facility] Non-Formulary Medication 40 mg 01/13/17 22:00 Simvastatin PO HS MAGO Ondansetron HCl 4 mg 01/12/17 22:45 01/13/17 10:06 Zofran Injection IVPUSH 4 mg Q6H PRN Administration NAUSEA AND/OR VOMITING Tiotropium [place] 1 puff 01/13/17 10:00 01/13/17 09:49 Spiriva - IH 1 puff DAILY MAGO Administration ASSESSMENT/PLAN 81 year-old woman with a PMH of HTN, HLD, systolic and diastolic heart failure, and hypothyroidism, sent to ED for admission by Dr. Bella for UTI. Found to be hyponatremic. E.coli bacteremia --treated outpatient with macrobid but remained symptomatic --multiple drug allergies --started tobramycin --per ID, hold dose today and check level tomorrow Systolic and diastolic heart failure s/p PPM --11/07/16 Echo: LV function severely reduced, severe global hypokinesis, EF 29%; RV not well visualized; BLAE; moderate MR; moderate TR; mild pulmonary HTN ; bio-prosthetic aortic valve well-seated and normal function; trace VT Hyponatremia --hold diuretics --NS x 250mL x 1 --renal following BETTIE --Cr 0.9 on admission, bumped to 1.6 --hold diuretics, gentle fluids Hypertension --markedly hypotensive on admission, 81/38 --hold diuretics (spironolactone, metolazone, lasix) and anti-hypertensives ( lisinopril, Toprol XL) Hyperlipidemia --continue statin Hypothyroidism --continue levothyroxine Hypokalemia --repleted FEN Fluids: NS 250mL x 1 Electrolytes: replete as indicated Nutrition: sodium controlled DVT prophylaxis: subq heparin Dispo: continues to require inpatient care. Full Code. Visit type - Emergency Visit Emergency Visit: Yes ED Registration Date: 01/12/17 Care time: The patient presented to the Emergency Department on the above date and was hospitalized for further evaluation of their emergent condition. - New Patient This patient is new to me today: Yes Date on this admission: 01/14/17 - Critical Care Critical Care patient: No
--- NOTE | 2017-01-13 14:11 | CONSULT ---
Consult Consult Specialty:: Nephrology Reason for Consultation:: hyponatremia - History of Present Illness Chief Complaint: nausea History of Present Illness: Pt is an 81 year old female with pmhx of CHF, cad, ppm, HTN, and hypothyroidism who I sent in to the ER for nausea. She had dysuria and I started her on antibiotics. She has several rug allergies. Her cultures grew e.coli which was sensitive to macrobid. Pt had several days of macrobid and did not respond. She called and complained of nausea so I sent her to the hospital. Pt also had a fever of 100.8 at home. She was on lasix and metolazone. She was found to be hyponatremic. Pt does not have much appetite and has not been eating. - History Source History Provided By: Patient - Past Medical History Cardio/Vascular: Yes: AFIB, Aortic Stenosis (s/p AVR), CAD, CHF (Chronic combined systolic/diastolic HF), HTN, Hyperlipdemia, Murmur, Other (aortic valve replacement) Pulmonary: Yes: COPD, Other (paralyzed diaghragm) Psych: Yes: Anxiety, Depression, Panic Musculoskeletal: Yes: Chronic low back pain Endocrine: Yes: Hypothyroidism - Past Surgical History Past Surgical History: Yes: Appendectomy, CABG, Cholecystectomy, , Hysterectomy, Valve Replacement (AVR) - Alcohol/Substance Use Hx Alcohol Use: No History of Substance Use: reports: None - Smoking History Smoking history: Never smoked Have you smoked in the past 12 months: No Aproximately how many cigarettes per day: 0 If you are a former smoker, when did you quit?: 21 YRS - Social History Usual Living Arrangement: With Spouse ADL: Independent History of Recent Travel: No Home Medications - Allergies Allergies/Adverse Reactions: Allergies Allergy/AdvReac Type Severity Reaction Status Date / Time albuterol Allergy Hives Verified 01/12/17 14:59 ciprofloxacin Allergy Rash Verified 01/12/17 14:59 clindamycin Allergy Hives Verified 01/12/17 14:59 lactose [Lactose] Allergy Nausea Verified 01/12/17 14:59 levofloxacin [From Levaquin] Allergy Rash Verified 01/12/17 14:59 Penicillins Allergy Swelling Verified 01/12/17 14:59 Shellfish Allergy Difficulty Verified 01/12/17 14:59 Breathing Sulfa (Sulfonamide Allergy Rash Verified 01/12/17 14:59 Antibiotics) trimethobenzamide HCl Allergy Rash Verified 01/12/17 14:59 [From Tigan] atorvastatin calcium AdvReac Unknown "muscle Verified 01/12/17 14:59 [From Lipitor] weakness" morphine AdvReac Unknown blurred Verified 01/12/17 14:59 vision - Home Medications Home Medications: Ambulatory Orders RX: Aspirin [ASA -] 81 mg PO DAILY 08/10/15 RX: Budesonide/Formeterol Fumarate [SYMBICORT 80/4.5mcg -] 1 inh PO BID RX: Tiotropium [place] [Spiriva] 1 inh PO DAILY 08/10/15 RX: Levothyroxine [Synthroid -] 75 mcg PO DAILY 09/16/15 RX: Metoprolol Succinate [Toprol XL -] 25 mg PO BID #60 tab.sr.24h 09/24/15 RX: Docusate Sodium [Colace -] 100 mg PO BID 11/06/15 RX: Clopidogrel Bisulfate [Clopidogrel] 75 mg PO DAILY 03/18/16 RX: Simvastatin [Zocor -] 40 mg PO HS 03/18/16 RX: Spironolactone 12.5 mg PO BID 11/04/16 RX: Lisinopril [Prinivil] 2.5 mg PO DAILY #60 tablet 11/09/16 Metolazone [Zaroxolyn -] 5 mg PO DAILY #30 tablet 12/06/16 RX: Furosemide [Lasix -] 60 mg PO BID #60 tablet 12/06/16 RX: Metolazone [Zaroxolyn -] 5 mg PO DAILY #30 tablet 12/06/16 Family Disease History - Family Disease History Family History: Denies Review of Systems - Review of Systems Constitutional: reports: Fever, Malaise Eyes: reports: No Symptoms HENT: reports: No Symptoms Neck: reports: No Symptoms Cardiovascular: reports: No Symptoms. denies: Edema Respiratory: reports: SOB on Exertion Gastrointestinal: reports: Abdominal Pain Genitourinary: reports: Dysuria Musculoskeletal: reports: No Symptoms Neurological: reports: No Symptoms Endocrine: reports: No Symptoms Hematology/Lymphatic: reports: No Symptoms Psychiatric: reports: No Symptoms Physical Exam Vital Signs: Vital Signs Temperature 98.3 F 01/13/17 09:00 Pulse Rate 109 H 01/13/17 12:00 Respiratory Rate 20 01/13/17 12:00 Blood Pressure 93/44 01/13/17 12:00 O2 Sat by Pulse Oximetry (%) 95 01/13/17 10:38 Constitutional: Yes: Anxious Eyes: Yes: Conjunctiva Clear HENT: Yes: Atraumatic Neck: Yes: Supple Cardiovascular: Yes: S1, S2 Respiratory: Yes: CTA Bilaterally, On Nasal O2 Gastrointestinal: Yes: Soft, Abdomen, Obese Renal/: Yes: WNL Musculoskeletal: Yes: WNL Edema: No Neurological: Yes: Oriented Psychiatric: Yes: Oriented Labs: CBC, BMP 01/13/17 08:00 01/13/17 08:00 Laboratory Tests 01/12/17 01/12/17 01/12/17 15:40 15:45 15:45 WBC 11.5 H Sodium Potassium Chloride Carbon Dioxide Anion Gap BUN Creat Clearance w eGFR Lactic Acid 1.1 Troponin I TSH Urine Color Dkyellow Urine Appearance Slcloudy Urine pH 5.0 Ur Specific [place] 1.010 Urine Protein Negative Urine Glucose (UA) Negative Urine Ketones Trace H Urine Blood Negative Urine Nitrite Negative Urine Bilirubin Negative Urine Urobilinogen 2.0 H Ur Leukocyte Esterase Negative 01/12/17 01/12/17 01/13/17 15:45 20:50 08:00 WBC 11.0 H Sodium 126 L Potassium 3.2 L D Chloride 76 L Carbon Dioxide 41 H Anion Gap 9 BUN 53 H Creat Clearance w eGFR 59.80 Lactic Acid 1.4 Troponin I 0.03 TSH Urine Color Urine Appearance Urine pH Ur Specific [place] Urine Protein Urine Glucose (UA) Urine Ketones Urine Blood Urine Nitrite Urine Bilirubin Urine Urobilinogen Ur Leukocyte Esterase 01/13/17 08:00 WBC Sodium 125 L Potassium 3.3 L Chloride 76 L Carbon Dioxide 40 H Anion Gap 9 BUN 53 H Creat Clearance w eGFR Lactic Acid Troponin I TSH 0.44 D Urine Color Urine Appearance Urine pH Ur Specific [place] Urine Protein Urine Glucose (UA) Urine Ketones Urine Blood Urine Nitrite Urine Bilirubin Urine Urobilinogen Ur Leukocyte Esterase Imaging - Results Chest X-ray: Report Reviewed Problem List - Problems (1) Hypokalemia Code(s): E87.6 - HYPOKALEMIA (2) Hyponatremia Code(s): E87.1 - HYPO-OSMOLALITY AND HYPONATREMIA (3) UTI (urinary tract infection) Code(s): N39.0 - URINARY TRACT INFECTION, SITE NOT SPECIFIED Qualifiers: Urinary tract infection type: site unspecified Hematuria presence: without hematuria Qualified Code(s): N39.0 - Urinary tract infection, site not specified; N39.0 - Urinary tract infection, site not specified; R31.9 - Hematuria, unspecified; R31.9 - Hematuria, unspecified (4) Acute on chronic systolic CHF (congestive heart failure) Code(s): I50.23 - ACUTE ON CHRONIC SYSTOLIC (CONGESTIVE) HEART FAILURE (5) COPD (chronic obstructive pulmonary disease) Code(s): J44.9 - CHRONIC OBSTRUCTIVE PULMONARY DISEASE, UNSPECIFIED Assessment/Plan Current Medications Generic Name Dose Route Start Last Admin Trade Name Freq PRN Reason Stop Dose Admin Aspirin 81 mg 01/13/17 10:00 01/13/17 09:49 Asa - PO 81 mg DAILY MAGO Administration Budesonide/Formoterol Fumarate 1 puff 01/13/17 10:00 01/13/17 09:49 Symbicort 80/4.5mcg - IH 1 puff BID MAGO Administration Clopidogrel Bisulfate 75 mg 01/13/17 10:00 01/13/17 09:48 Plavix - PO 75 mg DAILY MAGO Administration Docusate Sodium 100 mg 01/13/17 10:00 01/13/17 09:48 Colace - PO 100 mg BID MAGO Administration Heparin Sodium (Porcine) 5,000 unit 01/13/17 02:00 01/13/17 09:48 Heparin - SQ 5,000 unit Q8H-IV MAGO Administration Levothyroxine Sodium 75 mcg 01/13/17 07:00 01/13/17 06:20 Synthroid - PO 75 mcg DAILY@0700 MAGO Administration Lisinopril 2.5 mg 01/13/17 10:00 01/13/17 09:48 Prinivil PO 2.5 mg DAILY MAGO Administration Metoprolol Succinate 25 mg 01/13/17 10:00 01/13/17 09:45 Toprol Xl - PO Not Given BID [facility] Non-Formulary Medication 40 mg 01/13/17 22:00 Simvastatin PO HS MAGO Ondansetron HCl 4 mg 01/12/17 22:45 01/13/17 10:06 Zofran Injection IVPUSH 4 mg Q6H PRN Administration NAUSEA AND/OR VOMITING Tiotropium [place] 1 puff 01/13/17 10:00 01/13/17 09:49 Spiriva - IH 1 puff DAILY MAGO Administration 1. UTI 2. hyponatremia 3. paralyzed hemidiaphragm 4. HTN 5. valvular heart disease 6. azotemia 7. hypothyroid 8. CAD 9. hypokalemia 10. alkalosis Plan - hold diuretics - ID eval for abx, follow cultures - will give gentle hydration - check ua, electrolytes and urine osm - hyponatremia likely secondary to metlazone in the setting of infection and decreased PO intake - will follow - discussed with admitting team Dr Bella
[2017-01-13] MEDS ORDERED: SODIUM CHLORIDE 1,000 ML IV SCH ×2 (14:15→23:39)
[2017-01-13 19:13] LABS: ANION GAP 9 (8-16); CALCIUM 8.6 mg/dL (8.5-10.1); CO2 39 mmol/L (21-32); CREATININE 1.6 mg/dL (0.55-1.02); GLUCOSE,RANDOM 128 mg/dL (74-106)
[2017-01-13] MEDS ORDERED: POTASSIUM CHLORIDE TABS 20 MEQ TABLET.ER (FP) PO SCH (19:45)
[2017-01-13] MEDS ORDERED: HYDROmorphone HCL CARPU-JECT 1 MG/1 ML DISP.SYRIN IVPB ONE (20:34)
[2017-01-13] MEDS ORDERED: POTASSIUM CHLORIDE ORAL LIQUID 20 MEQ/15 ML PO ONE (20:34)
--- NOTE | 2017-01-13 20:54 | HOSP ---
Subjective - Review of Symptoms Events since last encounter: Called by nurse who reports Abdominal pain. Subjective: Pt with report of lower abdominal pain "all day". Also reports nausea. Pt reports 2 loose BMs today. Gastrointestinal: Yes: Nausea, Vomiting, Abdominal Pain Physical Examination Vital Signs: Vital Signs Temperature 98.3 F 01/13/17 09:00 Pulse Rate 109 H 01/13/17 12:00 Respiratory Rate 20 01/13/17 12:00 Blood Pressure 93/44 01/13/17 12:00 O2 Sat by Pulse Oximetry (%) 95 01/13/17 10:38 Constitutional: Yes: Anxious (mildly) Cardiovascular: Yes: WNL Respiratory: Yes: Rales (bibasilar) Gastrointestinal: Yes: Normal Bowel Sounds, Soft, Tenderness (B/LLQ, R>L) ...Rectal Exam: Yes: Sphincter Tone Normal, Other (small amount soft stool present. No fecal bolus present.) Musculoskeletal: Yes: Other (able to EUCEDA) Edema: No Labs: CBC, BMP 01/13/17 08:00 01/13/17 18:13 Hospitalist Encounter Assessment: Abdominal pain - Xray abdomen done, image quality suboptimal, dilated loops of bowel noted. - will obtain CT with po contrast. IV contrast deferred due to Cr 1.6 - dilaudid 0.5mg x 1, zofran for nausea Loose BM - c diff ordered - hold colace Hypokalemia - pt unable to swallow po pills, will change to liquid potassium 10PM called by nurse, pt SBP 80s, advised to given NS 250cc bolus Pt reports lightheadedness/dizziness when standing earlier today, h/o episodes hypotension in past requiring ICU stay Pt c/o continued nausea despite zofran, will give reglan 10mg x 1 reassess in 1 hour. 1100PM BP remains low 80s/40s. will give another 250cc bolus. Pt alert and oriented. Long discussion with both patient and daughters regarding low BP, fluid status and CHF and risk of fluid overload. Pt and family aware of risk of CHF exacerbation with excessive fluids but aware of need for additional IV fluids. Pt and family would be in agreement with ICU transfer if needed including central line and pressors but are undecided about intubation and resuscitation. Will reassess after second bolus. 1135PM: BP 86/40, slight improvement. pt mentating well, no confusion or altered mental status. Nausea slightly improved with reglan. Will dc zofran and order reglan ( safer in setting of prolonged QTC). Pt will attempt po contrast "in a little while". IV acetaminophen ordered for pain as BP would not tolerate opioids and pt with multiple drug sensitivities. If pt unable to take po contrast will do CT without. Pt reports no urine output [id number] or 5pm. bladder scan done, 25cc only. will cont IVF 115AM SBP again in the 70s. Will give additional bolus 250ML NS and transfer to ICU tele for closer monitoring. Pt remains alert and oriented. Reports pain is slightly better after tylenol. 215AM SBP 84/42 upon arrival to ICU. Lungs remain with bibasilar crackles, L>R, Cont current treatment. IF BP >[address] 345AM Received TC from ICU BP back into 70s, will give additional bolus and if no improvement start dopamine. 5AM: BP remains in 80s despite fluid resuscitation and no urine output. Will start low dose dopamine at 2mcg/kg/hr 530AM SBP now in 90s. Pt sleeping peacefully. Critical Care Total Critical Care Time (in minutes): 75 Critical Care Statement: The care of this patient involved high complexity decision making to prevent further life threatening deterioration of the patient 's condition and/or to evaluate & treat vital organ system(s) failure or risk of failure.
[2017-01-13] MEDS ORDERED: SODIUM CHLORIDE 250 ML IV STA ×2 (21:59→23:00)
[2017-01-13] MEDS ORDERED: PATIENT'S OWN MEDICATION (NON-FORMULARY) (Simvastatin 40 MG) PO SCH (22:00)
[2017-01-13] MEDS ORDERED: METOCLOPRAMIDE HCL INJECTION 10 MG/2 ML VIAL IVPB ONE (22:05)
[2017-01-13] MEDS ORDERED: ACETAMINOPHEN 1000 MG/100 ML VIAL (NON FORMULARY) IVPB ONE (23:45)
[2017-01-13 23:55] LABS: BASOPHIL 0.2 % (0-2.0); EOSINOPHIL 0.6 % (0-4.5); MCH 26.5 pg (25.7-33.7); MCHC 33.2 g/dl (32.0-36.0); MEAN CELL VOLUME 79.8 fl (80-96); MEAN PLT VOLUME 9.1 fl (7.5-11.1); NEUTROPHILS 83.3 % (42.8-82.8); PLATELET COUNT 304 K/MM3 (134-434); RDW 15.1 % (11.6-15.6); WHITE BLOOD COUNT 14.7 K/mm3 (4.0-10.0)
[2017-01-14] MEDS: KCL 10 MEQ IVPB 100 ML IVPB SCH ×3 (00:01→04:05)
[2017-01-14] MEDS ORDERED: SODIUM CHLORIDE 1,000 ML IV SCH ×2 (00:07→05:21)
[2017-01-14 00:19] LABS: MAGNESIUM 2.3 mg/dL (1.8-2.4)
[2017-01-14 00:34] LABS: ALBUMIN 2.6 g/dl (3.4-5.0); ALK PHOS 92 U/L (45-117); ANION GAP 13 (8-16); BILIRUBIN,TOTAL 0.6 mg/dL (0.2-1.0); CALCIUM 8.4 mg/dL (8.5-10.1); CO2 36 mmol/L (21-32); CREATININE 1.8 mg/dL (0.55-1.02); GLUCOSE,RANDOM 112 mg/dL (74-106); SGOT/AST 20 U/L (15-37); SGPT/ALT 15 U/L (12-78)
[2017-01-14] MEDS ORDERED: SODIUM CHLORIDE 250 ML IV STA ×3 (01:15→05:21)
[2017-01-14] MEDS ORDERED: METOCLOPRAMIDE HCL INJECTION 10 MG/2 ML VIAL IVPB PRN (01:27)
[2017-01-14] MEDS: HEPARIN NA (PORCINE) 5,000 UNITS/ML 1ML VIAL SQ SCH ×4 (03:56→21:49)
[2017-01-14] MEDS ORDERED: DOPAMINE 400 MG/D5W - 250 ML IVPB ONE (05:11)
[2017-01-14] MEDS: DOPAMINE 400 MG/D5W - 250 ML IVPB SCH (05:23)
[2017-01-14] MEDS ORDERED: POTASSIUM CHLORIDE ORAL LIQUID 20 MEQ/15 ML PO ONE (06:00)
--- NOTE | 2017-01-14 06:49 | CON.CARD ---
Consult Consult Specialty:: Cardiology Referred by:: Hospitalist Reason for Consultation:: Hypotension, chf - History of Present Illness Chief Complaint: abdominal pain History of Present Illness: 81 year old woman with a history of HTN, HLD, CAD s/p CABG, AVR, Chronic combined systolic/diastolic CHF, severe LV systolic dysfunction s/p Bi-V ICD, paralyzed L cosme-diaphragm, admitted for nausea, vomiting, abdominal pain, UTI possible urosepsis, hypotension. Pt seen and examined this am in nad. anxious about being in the hospital. states she has significant abdominal pain. wants to get up and sit on side of bed. denies any chest pain, sob, palpitations, no pnd, orthopnea, or LE edema. no lightheadedness or dizziness. - History Source History Provided By: Patient, Medical Record Limitations to Obtaining History: No Limitations - Past Medical History Cardio/Vascular: Yes: AFIB, Aortic Stenosis (s/p AVR), CAD, CHF (Chronic combined systolic/diastolic HF), HTN, Hyperlipdemia, Murmur, Other (aortic valve replacement) Pulmonary: Yes: COPD, Other (paralyzed diaghragm) Renal/: Yes: UTI Psych: Yes: Anxiety, Depression, Panic Musculoskeletal: Yes: Chronic low back pain Endocrine: Yes: Hypothyroidism - Past Surgical History Past Surgical History: Yes: Appendectomy, CABG, Cholecystectomy, , Hysterectomy, Valve Replacement (AVR) - Alcohol/Substance Use Hx Alcohol Use: No History of Substance Use: reports: None - Smoking History Smoking history: Never smoked Have you smoked in the past 12 months: No Aproximately how many cigarettes per day: 0 If you are a former smoker, when did you quit?: 21 YRS - Social History Usual Living Arrangement: With Spouse ADL: Independent History of Recent Travel: No Home Medications - Allergies Allergies/Adverse Reactions: Allergies Allergy/AdvReac Type Severity Reaction Status Date / Time albuterol Allergy Hives Verified 01/12/17 14:59 ciprofloxacin Allergy Rash Verified 01/12/17 14:59 clindamycin Allergy Hives Verified 01/12/17 14:59 lactose [Lactose] Allergy Nausea Verified 01/12/17 14:59 levofloxacin [From Levaquin] Allergy Rash Verified 01/12/17 14:59 Penicillins Allergy Swelling Verified 01/12/17 14:59 Shellfish Allergy Difficulty Verified 01/12/17 14:59 Breathing Sulfa (Sulfonamide Allergy Rash Verified 01/12/17 14:59 Antibiotics) trimethobenzamide HCl Allergy Rash Verified 01/12/17 14:59 [From Tigan] atorvastatin calcium AdvReac Unknown "muscle Verified 01/12/17 14:59 [From Lipitor] weakness" morphine AdvReac Unknown blurred Verified 01/12/17 14:59 vision - Home Medications Home Medications: Ambulatory Orders Aspirin [ASA -] 81 mg PO DAILY 08/10/15 Budesonide/Formeterol Fumarate [SYMBICORT 80/4.5mcg -] 1 inh PO BID 08/10/15 Tiotropium [place] [Spiriva] 1 inh PO DAILY 08/10/15 Levothyroxine [Synthroid -] 75 mcg PO DAILY 09/16/15 Metoprolol Succinate [Toprol XL -] 25 mg PO BID #60 tab.sr.24h 09/24/15 Docusate Sodium [Colace -] 100 mg PO BID 11/06/15 Clopidogrel Bisulfate [Clopidogrel] 75 mg PO DAILY 03/18/16 Simvastatin [Zocor -] 40 mg PO HS 03/18/16 Spironolactone 12.5 mg PO BID 11/04/16 Lisinopril [Prinivil] 2.5 mg PO DAILY #60 tablet 11/09/16 Furosemide [Lasix -] 60 mg PO BID #60 tablet 12/06/16 Metolazone [Zaroxolyn -] 5 mg PO DAILY #30 tablet 12/06/16 Metolazone [Zaroxolyn -] 5 mg PO DAILY #30 tablet 12/06/16 Family Disease History - Family Disease History Family History: Denies Review of Systems - Review of Systems Constitutional: denies: No Symptoms, Chills, Diaphoresis, Fever, Lethargy, Loss of Appetite, Malaise, Night Sweats, Unintentional Wgt. Loss, Weakness, Other Eyes: denies: No Symptoms, Blind Spots, Blurred Vision, Double Vision, Eye Pain , Floaters, Photophobia, Recent Change in Vision, Other HENT: denies: No Symptoms, Difficult Swallowing, Ear Discharge, Ear Pain, Epistaxis, Gingival Bleeding, Hearing Loss, Mouth Swelling, Nasal Congestion, Ocular Prosthesis, Throat Pain, Toothache, Ringing in Ears, Other Neck: denies: No Symptoms, Decreased ROM, Lumps, Pain on Movement, Stiffness, Swollen Glands, Tenderness, Other Cardiovascular: denies: No Symptoms, Chest Pain, Edema, Palpitations, Shortness of Breath, Other Respiratory: denies: No Symptoms, Cough, Exercise Intolerance, Hemoptysis, Orthopnea, PND, Snoring, SOB, SOB on Exertion, Wheezing, Other Gastrointestinal: reports: Abdominal Pain, Nausea, Vomiting. denies: No Symptoms, Bloating, Constipation, Diarrhea, Dysphagia, Indigestion, Melena, Rectal Bleeding, Vomiting Blood, Other Genitourinary: denies: No Symptoms, Burning, Discharge, Dysuria, Flank Pain, Frequency, Hematuria, Incontinence, Lesions, Menses, Pain, Testicular Mass, Testicular Pain, Testicular Swelling, Urgency, Vaginal Bleeding, Other Breasts: denies: No Symptoms Reported, See HPI, Breast Implants, Discharge from Nipple, Lumps, Pain, Skin Changes, Other Musculoskeletal: denies: No Symptoms, Back Pain, Crepitus, Decreased ROM, Extremity Pain, Joint Pain, Joint Swelling, Muscle Pain, Muscle Cramps, Muscle Weakness, Other Integumentary: denies: No Symptoms, Blister, Bruising, Change in Color, Eczema, Erythema, Incision, Lesions, Lump, Pallor, Pruritis, Rash, Wound, Other Neurological: denies: No Symptoms, Change in LOC, Change in Speech, Confusion, Dizziness, Headache, Incoordination, Numbness, Parasthesia, Pre-Existing Deficit , Seizure, Syncope, Tremors, Unsteady Gait, Weakness, Other Endocrine: denies: No Symptoms, Excessive Sweating, Flushing, Increased Hunger, Increased Thirst, Intolerance to Cold, Intolerance to Heat, Unexplained Weight Gain, Unexplained Weight Loss, Other Hematology/Lymphatic: denies: No Symptoms, Easily Bruised, Excessive Bleeding, Swollen Glands, Other Psychiatric: denies: No Symptoms, Altered Sleep Pattern, Anxiety, Depression, Hallucinations, Panic, Paranoia, Suicidal, Other - Risk Factors Known Risk Factors: Yes: Age, Hypercholesterolemia, Hypertension Vital Signs: Vital Signs Temperature 98.3 F 01/14/17 02:26 Pulse Rate 88 01/14/17 06:00 Respiratory Rate 20 01/14/17 06:00 Blood Pressure 91/50 01/14/17 06:00 O2 Sat by Pulse Oximetry (%) 95 01/13/17 21:00 Constitutional: Yes: No Distress, Anxious Eyes: Yes: Conjunctiva Clear, EOM Intact, PERRL HENT: Yes: Atraumatic, Normocephalic Neck: Yes: Supple, Trachea Midline Respiratory: Yes: Regular, CTA Bilaterally. No: Rales, Rhonchi, SOB, Wheezes Gastrointestinal: Yes: Normal Bowel Sounds, Tenderness. No: Distention Cardiovascular: Yes: Tachycardia. No: Bradycardia, Pulse Irregular, Gallop, Rub , Varicosities JVD: No Carotid Bruit: No PMI: Non-Displaced Heart Sounds: Yes: S1, S2. No: Split S2, S3, S4, Clicks, Gallop, Rub, Bruit Murmur: Yes: Systolic Murmur. No: Diastolic Murmur Musculoskeletal: Yes: Muscle Weakness Edema: No Peripheral Pulses WNL: Yes Peripheral Pulses: 2+ Left Doralis Pedis, 2+ Right Dorsalis Pedis Neurological: Yes: Alert, Oriented Psychiatric: Yes: Alert, Oriented - Other Data Labs, Other Data: CBC, BMP 01/13/17 23:07 01/13/17 23:07 INR, PTT INR 1.12 (0.82-1.09) 01/12/17 15:45 EKG-NSR Vpaced 91bpm Echo: Report Reviewed Prior Cardiac Procedures: PTCA with Stent Imaging - Results Chest X-ray: Report Reviewed, Image Reviewed EKG: Report Reviewed, Image Reviewed Other: Report Reviewed, Image Reviewed (tele-sinus tach, vpaced, 9 beats NSVT, PVCs) Assessment/Plan 81 year old woman with a history of HTN, HLD, CAD s/p CABG, AVR, Chronic combined systolic/diastolic CHF, severe LV systolic dysfunction s/p Bi-V ICD, paralyzed L cosme-diaphragm, admitted for nausea, vomiting, abdominal pain, UTI possible urosepsis, hypotension. Hypotension-pts blood pressure is chronically low normal but more hypotensive than usual on admission -presume infectious process with possible sepsis, possible urosepsis -work up of abd pain, imaging as needed -received Abx -currently on dopamine for BP support with reported little urine output -pt is currently euvolemic, if needed can give small boluses of IVF and monitor for fluid overload -hold anti-HTN meds for now and resume as tolerates -monitor on tele for now Chronic combined systolic/diastolic CHF, h/o severe LV systolic dysfunction s/p Bi-V ICD -currently euvolemic -hold Lasix and anti-HTN meds for now and resume as tolerates -fluids as above CAD s/p CABG and AVR -stable -cont ASA, plavix, zocor for now -holding bblocker for hypotension NSVT-short run this am, h/o NSVT -maybe stimulated by dopamine with underlying CHF and CAD -ICD in place -need to hold bblocker for now given hypotension -if long runs of VT and continued hypotension may need to use amiodarone
[2017-01-14] MEDS: LEVOTHYROXINE NA 75 MCG TABLET (FP) PO SCH (06:55)
--- NOTE | 2017-01-14 08:42 | PN ---
Progress Note (short form) - Note Progress Note: transferred to telemetry for nausea and low BP received IVF and started on dopamine, minimal urine output continues to complain of cramps has had poor appetite at home and has not been eating miranda placed, now with some urine output Vital Signs Period Temp Pulse Resp BP Sys/Camilo Pulse Ox Last 24 Hr 98 F-98.3 F 86-109 18-20 70-96/34-54 95-95 cor-rrr lungs bibasilar crackles abd soft, no distention, suprapubic tenderness to palpation no rebound or guarding ext no edema CBC, BMP 01/13/17 23:07 labs this AM were just drawn and pending Microbiology 01/12/17 20:50 Blood - Peripheral Venous Blood Culture - Preliminary NO GROWTH OBTAINED AFTER 24 HOURS, INCUBATION TO CONTINUE FOR 4 DAYS. 01/12/17 20:50 Blood - Peripheral Venous Blood Culture - Preliminary NO GROWTH OBTAINED AFTER 24 HOURS, INCUBATION TO CONTINUE FOR 4 DAYS. a/p abdominal pain and hypotension one episode of loose BM yesterday none since abd pain BETTIE history of ecoli UTI as outpt-received macrobid received tobramycin in ED multiple antibiotic allergies needs ct scan of abdomen tobramycin level ordered stool cdiff f/u cultures tobramycin "on board" history of CHF?COPD- oxygen dependent
[2017-01-14 08:54] LABS: BASOPHIL 0.2 % (0-2.0); MCH 26.1 pg (25.7-33.7); MCHC 32.5 g/dl (32.0-36.0); MEAN CELL VOLUME 80.3 fl (80-96); MEAN PLT VOLUME 9.3 fl (7.5-11.1); NEUTROPHILS 80.9 % (42.8-82.8); PLATELET COUNT 252 K/MM3 (134-434); RDW 15.3 % (11.6-15.6); WHITE BLOOD COUNT 12.4 K/mm3 (4.0-10.0)
[2017-01-14 09:13] LABS: SODIUM,RANDOM URINE 10 MMOL/L
[2017-01-14] MEDS ORDERED: MUPIROCIN 2% TOPICAL OINTMENT FOR DECOLONIZATION NS SCH (10:00)
[2017-01-14] MEDS: CLOPIDOGREL BISULFATE 75 MG TABLET (FP) PO SCH (10:38)
[2017-01-14] MEDS: ASPIRIN 81 MG CHEWABLE TABLETS PO SCH (10:38)
[2017-01-14] MEDS: BUDESONIDE/FORMETEROL FUMARATE 80/4.5 mcg INHALER IH SCH ×2 (10:42→21:49)
[2017-01-14] MEDS ORDERED: PT OWN MED DRAWER 7, Y5N ONE ×3 (10:49→21:32)
[2017-01-14 11:05] LABS: ALBUMIN 2.5 g/dl (3.4-5.0); ALK PHOS 95 U/L (45-117); ANION GAP 12 (8-16); BILIRUBIN,TOTAL 0.6 mg/dL (0.2-1.0); CALCIUM 8.2 mg/dL (8.5-10.1); CO2 32 mmol/L (21-32); CREATININE 1.5 mg/dL (0.55-1.02); GLUCOSE,RANDOM 153 mg/dL (74-106); SGOT/AST 34 U/L (15-37); SGPT/ALT 16 U/L (12-78); TOT PROT 6.1 g/dl (6.4-8.2)
--- NOTE | 2017-01-14 11:55 | PN ---
Physical Exam: SUBJECTIVE: Patient seen and examined. Complaining of mild abdominal pain. OBJECTIVE: Vital Signs Period Temp Pulse Resp BP Sys/Camilo Pulse Ox Last 24 Hr 98 F-98.4 F 86-116 18-20 70-95/34-61 95-100 GENERAL: The patient is awake, alert, and fully oriented. LUNGS: Bilateral crackles prison up. No wheezing. No accessory muscle use. Speaking in complete sentences. No sign of respiratory distress. HEART: Irregular, S1, S2. ABDOMEN: Soft, mild LLQ tenderness, normoactive bowel sounds, no guarding, no rebound EXTREMITIES: 2+ pulses, warm, well-perfused, no edema. NEUROLOGICAL: Cranial nerves II through XII grossly intact. Normal speech, gait not observed. Laboratory Results - last 24 hr 01/13/17 01/13/17 01/13/17 18:13 23:07 23:07 WBC 14.7 H D RBC 4.02 Hgb 10.6 L D Hct 32.1 L MCV 79.8 L MCH 26.5 MCHC 33.2 RDW 15.1 Plt Count 304 MPV 9.1 Neutrophils % 83.3 H Lymphocytes % 5.3 L D Monocytes % 10.6 H Eosinophils % 0.6 Basophils % 0.2 Sodium 126 L 129 L Potassium 3.4 L 3.2 L Chloride 78 L 80 L Carbon Dioxide 39 H 36 H Anion Gap 9 13 BUN 61 H 56 H Creatinine 1.6 H D 1.8 H Creat Clearance w eGFR 26.87 Random Glucose 128 H D 112 H Serum Osmolality Lactic Acid Calcium 8.6 8.4 L Phosphorus Magnesium Total Bilirubin 0.6 AST 20 ALT 15 Alkaline Phosphatase 92 D Total Protein 6.0 L Albumin 2.6 L Ur Random Sodium Ur Random Potassium Ur Random Chloride Tobramycin Trough 01/13/17 01/13/17 01/14/17 23:07 23:07 05:45 WBC RBC Hgb Hct MCV MCH MCHC RDW Plt Count MPV Neutrophils % Lymphocytes % Monocytes % Eosinophils % Basophils % Sodium Potassium Chloride Carbon Dioxide Anion Gap BUN Creatinine Creat Clearance w eGFR Random Glucose Serum Osmolality 287 Lactic Acid 1.1 Calcium Phosphorus 3.0 D Magnesium 2.3 Total Bilirubin AST ALT Alkaline Phosphatase Total Protein Albumin Ur Random Sodium Ur Random Potassium Ur Random Chloride Tobramycin Trough 01/14/17 01/14/17 01/14/17 06:00 08:20 10:00 WBC 12.4 H RBC 3.65 Hgb 9.5 L D Hct 29.3 L MCV 80.3 MCH 26.1 MCHC 32.5 RDW 15.3 Plt Count 252 MPV 9.3 Neutrophils % 80.9 Lymphocytes % 6.2 L Monocytes % 10.7 H Eosinophils % 2.0 D Basophils % 0.2 Sodium 130 L Potassium 3.6 Chloride 86 L Carbon Dioxide 32 Anion Gap 12 BUN 52 H Creatinine 1.5 H Creat Clearance w eGFR 33.16 Random Glucose 153 H D Serum Osmolality Lactic Acid Calcium 8.2 L Phosphorus Magnesium Total Bilirubin 0.6 AST 34 D ALT 16 Alkaline Phosphatase 95 Total Protein 6.1 L Albumin 2.5 L Ur Random Sodium 10 Ur Random Potassium 25.0 Ur Random Chloride < 10 Tobramycin Trough 01/14/17 10:00 WBC RBC Hgb Hct MCV MCH MCHC RDW Plt Count MPV Neutrophils % Lymphocytes % Monocytes % Eosinophils % Basophils % Sodium Potassium Chloride Carbon Dioxide Anion Gap BUN Creatinine Creat Clearance w eGFR Random Glucose Serum Osmolality Lactic Acid Calcium Phosphorus Magnesium Total Bilirubin AST ALT Alkaline Phosphatase Total Protein Albumin Ur Random Sodium Ur Random Potassium Ur Random Chloride Tobramycin Trough 1.0 Active Medications Generic Name Dose Route Start Last Admin Trade Name Freq PRN Reason Stop Dose Admin Aspirin 81 mg 01/14/17 10:00 01/14/17 10:38 Asa - PO 81 mg DAILY [facility] Administration Budesonide/Formoterol Fumarate 1 puff 01/14/17 10:00 01/14/17 10:42 Symbicort 80/4.5mcg - IH 1 puff BID [facility] Administration Clopidogrel Bisulfate 75 mg 01/14/17 10:00 01/14/17 10:38 Plavix - PO 75 mg DAILY [facility] Administration Heparin Sodium (Porcine) 5,000 unit 01/14/17 06:00 01/14/17 06:54 Heparin - SQ Not Given TID [facility] Dopamine HCl/Dextrose 250 mls @ 5.103 mls/hr 01/14/17 05:15 01/14/17 05:23 Dopamine 400 Mg/D5w - IVPB 5.103 mls/hr TITR [facility]O Administration Protocol 2 MCG/KG/MIN Levothyroxine Sodium 75 mcg 01/14/17 07:00 01/14/17 06:55 Synthroid - PO 75 mcg DAILY@0700 [facility] Administration Metoclopramide HCl 10 mg 01/14/17 05:21 Reglan Injection - IVPB Q6H PRN NAUSEA AND/OR VOMITING Non-Formulary Medication 40 mg 01/14/17 22:00 Simvastatin PO HS [facility] Tiotropium [place] 1 puff 01/14/17 10:00 Spiriva - IH DAILY [facility] ASSESSMENT/PLAN 81 year-old woman with a PMH of HTN, HLD, CAD, systolic and diastolic heart failure s/p AICD/PPM, s/p aortic valve replacement, and hypothyroidism, sent to ED for admission by Dr. Bella for UTI. 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/p PPM --11/07/16 Echo: LV function severely reduced, severe global hypokinesis, EF 29%; RV not well visualized; BLAE; moderate MR; moderate TR; mild pulmonary HTN ; bio-prosthetic aortic valve well-seated and normal function; trace AK --was normotensive on admission (correction to yesterday's progress note), but became markedly hypotensive the next day, BP 81/38 with a drop in UOP; diuretics and anti-hypertensives were held and gentle IV fluids given; BP did not improve and she was started last night on dopamine drip --significant bilateral crackles on exam after IV fluids --making about 50cc's urine per hour and BP in low 100's on dopamine --stop IV fluids --CXR --titrate dopamine to MAP > or = to 65 NSVT --short runs while on dopamine --seen and evaluated by cardiology, if long runs of VT may need amiodarone Hypervolemic Hyponatremia BETTIE --Cr 0.9 on admission, bumped to 1.8, today 1.5 --Na 126-->130, urine sodium low @10 --low-perfusion state; suspect when BP improves, Cr, UOP and serum Na will improve CAD --continue ASA, plavix COPD on home O2 --continue inhalers Hypertension --presently hypotensive on pressor Hyperlipidemia --continue statin Hypothyroidism --TSH low normal --continue levothyroxine Hypokalemia, resolved Nutrition: NPO due to diverticulitis DVT prophylaxis: subq heparin Dispo: continues to require inpatient care. In my presence, close friend inquired of patient's wishes regarding DNR/DNI. Patient said "I do not want to think about it." FULL CODE. Visit type - Emergency Visit Emergency Visit: Yes ED Registration Date: 01/12/17 Care time: The patient presented to the Emergency Department on the above date and was hospitalized for further evaluation of their emergent condition. - New Patient This patient is new to me today: No - Critical Care Critical Care patient: Yes Total Critical Care Time (in minutes): 60 Critical Care Statement: The care of this patient involved high complexity decision making to prevent further life threatening deterioration of the patient 's condition and/or to evaluate & treat vital organ system(s) failure or risk of failure.
[2017-01-14] MEDS: TIOTROPIUM BROMIDE 18 MCG/INH (DEVICE W/ 5 CAPSULES) IH SCH (13:28)
[2017-01-14] MEDS ORDERED: AZTREONAM 1 GM in DEXTROSE 5%-WATER - 50 ML IVPB SCH (16:00)
[2017-01-14] MEDS ORDERED: VANCOMYCIN 1 GRAM (PRE-DOCKED) 1,000 MG/250 ML BAG IVPB ONE (16:30)
[2017-01-14] MEDS: AZTREONAM 1 GM in DEXTROSE 5%-WATER - 50 ML IVPB SCH (17:13)
[2017-01-14] MEDS: METRONIDAZOLE 500 MG PREMIXED 100 ML IVPB SCH (17:21)
[2017-01-14] MEDS ORDERED: ACETAMINOPHEN 1000 MG/100 ML VIAL (NON FORMULARY) IVPB PRN (19:52)
--- NOTE | 2017-01-14 20:12 | PN ---
Progress Note (short form) - Note Progress Note: S/P transfer to icu s/p hypotension diverticulitis Current Medications Acetaminophen (Ofirmev Injection -) 1,000 mg IVPB Q6H PRN PRN Reason: FEVER OR PAIN Stop: 01/15/17 13:53 Aspirin (Asa -) 81 mg PO DAILY [facility] Last Admin: 01/14/17 10:38 Dose: 81 mg Budesonide/Formoterol Fumarate (Symbicort 80/4.5mcg -) 1 puff IH BID [facility] Last Admin: 01/14/17 10:42 Dose: 1 puff Clopidogrel Bisulfate (Plavix -) 75 mg PO DAILY [facility] Last Admin: 01/14/17 10:38 Dose: 75 mg Heparin Sodium (Porcine) (Heparin -) 5,000 unit SQ TID [facility] Last Admin: 01/14/17 13:29 Dose: 5,000 unit Dopamine HCl/Dextrose (Dopamine 400 Mg/D5w -) 250 mls @ 5.103 mls/hr IVPB TITR [facility]; 2 MCG/KG/MIN PRN Reason: Protocol Last Admin: 01/14/17 05:23 Dose: 5.103 mls/hr Metronidazole (Flagyl 500mg Premixed Ivpb -) 100 mls @ 100 mls/hr IVPB Q8H-IV [facility] Last Admin: 01/14/17 17:21 Dose: 100 mls/hr Aztreonam 1 gm/ Dextrose 50 mls @ 100 mls/hr IVPB BID [facility] PRN Reason: Protocol Last Admin: 01/14/17 17:13 Dose: 100 mls/hr Levothyroxine Sodium (Synthroid -) 75 mcg PO DAILY@0700 [facility] Last Admin: 01/14/17 06:55 Dose: 75 mcg Metoclopramide HCl (Reglan Injection -) 10 mg IVPB Q6H PRN PRN Reason: NAUSEA AND/OR VOMITING Non-Formulary Medication (Simvastatin) 40 mg PO HS [facility] Tiotropium [place] (Spiriva -) 1 puff IH DAILY [facility] Last Admin: 01/14/17 13:28 Dose: 1 inh Last Vital Signs Temp Pulse Resp BP Pulse Ox 98.8 F 82 20 95/66 100 01/14/17 13:57 01/14/17 13:57 01/14/17 13:57 01/14/17 13:57 01/14/17 10:38 Lungs bibasilar rales Heart reg s1s2 LEYLA Abd soft n Ext no edema CBC, BMP 01/14/17 08:20 01/14/17 10:00 Imp Hypotensive Hyponatremia improved Azotemia non oliguric, on low dose dopamine Plan- continue cautious hydration
[2017-01-14] MEDS ORDERED: CHLORHEXIDINE GLUCONATE 4% CLEANSER FOR DECOLONIZATION TP SCH (22:00)
[2017-01-15] MEDS: METRONIDAZOLE 500 MG PREMIXED 100 ML IVPB SCH ×3 (01:05→17:44)
[2017-01-15] MEDS: DOPAMINE 400 MG/D5W - 250 ML IVPB SCH ×2 (05:15→07:00)
[2017-01-15 06:19] LABS: MCH 26.5 pg (25.7-33.7); MCHC 33.3 g/dl (32.0-36.0); MEAN CELL VOLUME 79.7 fl (80-96); MEAN PLT VOLUME 9.2 fl (7.5-11.1); PLATELET COUNT 362 K/MM3 (134-434); WHITE BLOOD COUNT 15.9 K/mm3 (4.0-10.0)
[2017-01-15] MEDS: LEVOTHYROXINE NA 75 MCG TABLET (FP) PO SCH (06:41)
[2017-01-15] MEDS: HEPARIN NA (PORCINE) 5,000 UNITS/ML 1ML VIAL SQ SCH ×3 (06:41→21:25)
[2017-01-15 06:42] LABS: ALBUMIN 2.7 g/dl (3.4-5.0); ANION GAP 10 (8-16); CALCIUM 8.6 mg/dL (8.5-10.1); CO2 36 mmol/L (21-32); CREATININE 0.9 mg/dL (0.55-1.02); GLUCOSE,RANDOM 101 mg/dL (74-106); MAGNESIUM 2.4 mg/dL (1.8-2.4); PHOSPHOROUS 2.8 mg/dL (2.5-4.9); SGOT/AST 122 U/L (15-37); SGPT/ALT 22 U/L (12-78)
[2017-01-15 06:44] LABS: ALK PHOS 114 U/L (45-117); BILIRUBIN,TOTAL 0.8 mg/dL (0.2-1.0); TOT PROT 6.5 g/dl (6.4-8.2)
--- NOTE | 2017-01-15 08:21 | PN ---
Progress Note (short form) - Note Progress Note: alert, remains on dopamine still with nausea still some abdominal discomfort Vital Signs Period Temp Pulse Resp BP Sys/Camilo Pulse Ox Last 24 Hr 98.2 F-98.8 F 82-124 16-24 88-110/44-97 97-100 cor-rrr lungs decreased bs at bases abd soft, no distention, +suprapubic discomfort to palpation ext no edema CBC, BMP 01/15/17 06:00 01/15/17 06:00 Microbiology 01/12/17 20:50 Blood - Peripheral Venous Blood Culture - Preliminary NO GROWTH OBTAINED AFTER 48 HOURS, INCUBATION TO CONTINUE FOR 3 DAYS. 01/12/17 20:50 Blood - Peripheral Venous Blood Culture - Preliminary NO GROWTH OBTAINED AFTER 48 HOURS, INCUBATION TO CONTINUE FOR 3 DAYS. 01/12/17 15:45 Urine - Urine Clean Catch Urine Culture - Final Contaminated: Please Repeat ct scan -possible diverticulitis a/p abdominal pain and hypotension one episode of loose BM yesterday none since possible diverticulitis- given multiple antibiotic allergies she was started on vancomycin/azactam and flagyl yesterday- would continue esr/crp consider gi consult check cdiff if diarrhea recurs- BETTIE-resolved history of ecoli UTI as outpt-received macrobid history of CHF/COPD- oxygen dependent
--- NOTE | 2017-01-15 08:30 | PN ---
Physical Exam: SUBJECTIVE: Patient seen and examined OBJECTIVE: Vital Signs Period Temp Pulse Resp BP Sys/Camilo Pulse Ox Last 24 Hr 98.1 F-98.8 F 82-124 16-24 88-110/44-97 97-100 GENERAL: The patient is awake, alert, and fully oriented. LUNGS: Bilateral crackles correction up. No wheezing. No accessory muscle use. Speaking in complete sentences. No sign of respiratory distress. HEART: Irregular, S1, S2. ABDOMEN: Soft, mild LLQ tenderness, normoactive bowel sounds, no guarding, no rebound EXTREMITIES: 2+ pulses, warm, well-perfused, no edema. NEUROLOGICAL: Cranial nerves II through XII grossly intact. Normal speech, gait not observed. Laboratory Results - last 24 hr 01/14/17 01/14/17 01/14/17 05:45 06:00 08:20 WBC 12.4 H RBC 3.65 Hgb 9.5 L D Hct 29.3 L MCV 80.3 MCH 26.1 MCHC 32.5 RDW 15.3 Plt Count 252 MPV 9.3 Neutrophils % 80.9 Lymphocytes % 6.2 L Monocytes % 10.7 H Eosinophils % 2.0 D Basophils % 0.2 Sodium Potassium Chloride Carbon Dioxide Anion Gap BUN Creatinine Creat Clearance w eGFR Random Glucose Calcium Phosphorus Magnesium Total Bilirubin AST ALT Alkaline Phosphatase Total Protein Albumin Cortisol AM Sample 13.0 Ur Random Sodium 10 Ur Random Potassium 25.0 Ur Random Chloride < 10 Tobramycin Trough Blood Type Antibody Screen 01/14/17 01/14/17 01/14/17 10:00 10:00 12:05 WBC RBC Hgb Hct MCV MCH MCHC RDW Plt Count MPV Neutrophils % Lymphocytes % Monocytes % Eosinophils % Basophils % Sodium 130 L Potassium 3.6 Chloride 86 L Carbon Dioxide 32 Anion Gap 12 BUN 52 H Creatinine 1.5 H Creat Clearance w eGFR 33.16 Random Glucose 153 H D Calcium 8.2 L Phosphorus Magnesium Total Bilirubin 0.6 AST 34 D ALT 16 Alkaline Phosphatase 95 Total Protein 6.1 L Albumin 2.5 L Cortisol AM Sample Ur Random Sodium Ur Random Potassium Ur Random Chloride Tobramycin Trough 1.0 Blood Type O POSITIVE Antibody Screen Negative 01/15/17 01/15/17 06:00 06:00 WBC 15.9 H RBC 4.46 D Hgb 11.8 D Hct 35.6 D MCV 79.7 L MCH 26.5 MCHC 33.3 RDW 15.0 Plt Count 362 D MPV 9.2 Neutrophils % Lymphocytes % Monocytes % Eosinophils % Basophils % Sodium 131 L Potassium 4.0 Chloride 85 L Carbon Dioxide 36 H Anion Gap 10 BUN 39 H D Creatinine 0.9 D Creat Clearance w eGFR 59.80 Random Glucose 101 D Calcium 8.6 Phosphorus 2.8 Magnesium 2.4 Total Bilirubin 0.8 D AST 122 H D ALT 22 D Alkaline Phosphatase 114 Total Protein 6.5 Albumin 2.7 L Cortisol AM Sample Ur Random Sodium Ur Random Potassium Ur Random Chloride Tobramycin Trough Blood Type Antibody Screen Active Medications Generic Name Dose Route Start Last Admin Trade Name Freq PRN Reason Stop Dose Admin Acetaminophen 1,000 mg 01/14/17 19:52 Ofirmev Injection - IVPB 01/15/17 13:53 Q6H PRN FEVER OR PAIN Aspirin 81 mg 01/14/17 10:00 01/14/17 10:38 Asa - PO 81 mg DAILY [facility] Administration Budesonide/Formoterol Fumarate 1 puff 01/14/17 10:00 01/14/17 21:49 Symbicort 80/4.5mcg - IH 1 puff BID [facility] Administration Clopidogrel Bisulfate 75 mg 01/14/17 10:00 01/14/17 10:38 Plavix - PO 75 mg DAILY [facility] Administration Heparin Sodium (Porcine) 5,000 unit 01/14/17 06:00 01/15/17 06:41 Heparin - SQ 5,000 unit TID [facility] Administration Dopamine HCl/Dextrose 250 mls @ 5.103 mls/hr 01/14/17 05:15 01/15/17 05:15 Dopamine 400 Mg/D5w - IVPB Not Given TITR [facility] Protocol 2 MCG/KG/MIN Metronidazole 100 mls @ 100 mls/hr 01/14/17 17:00 01/15/17 01:05 Flagyl 500mg Premixed Ivpb - IVPB 100 mls/hr Q8H-IV [facility] Administration Aztreonam 1 gm/ Dextrose 50 mls @ 100 mls/hr 01/14/17 18:00 01/14/17 17:13 IVPB 100 mls/hr BID [facility] Administration Protocol Vancomycin HCl 1,000 mg/ 250 mls @ 166.667 mls/hr 01/15/17 16:30 Dextrose IVPB DAILY@1630 [facility] Levothyroxine Sodium 75 mcg 01/14/17 07:00 01/15/17 06:41 Synthroid - PO 75 mcg DAILY@0700 [facility] Administration Metoclopramide HCl 10 mg 01/14/17 05:21 Reglan Injection - IVPB Q6H PRN NAUSEA AND/OR VOMITING Non-Formulary Medication 40 mg 01/14/17 22:00 Simvastatin PO HS [facility] Tiotropium [place] 1 puff 01/14/17 10:00 01/14/17 13:28 Spiriva - IH 1 inh DAILY [facility] Administration ASSESSMENT/PLAN 81 year-old woman with a PMH of HTN, HLD, CAD, systolic and diastolic heart failure s/p AICD/PPM, s/p aortic valve replacement, and hypothyroidism, sent to ED for admission by Dr. Bella for UTI. E.coli UTI --afebrile, WBC trending up --continue aztreonam and flagyl Abdominal pain, resolved --CTAP showed a possible mild acute diverticulitis --feeling better, hungry --antibiotics as above, advance diet SIRS --elevated WBC, tachycardic, hypotensive --afebrile, no lactic acidosis --although there are two possible sources of infection, the clinical picture at this time is more consistent with decompensated heart Acute on chronic systolic and diastolic heart failure s/p PPM --11/07/16 Echo: LV function severely reduced, severe global hypokinesis, EF 29%; RV not well visualized; BLAE; moderate MR; moderate TR; mild pulmonary HTN ; bio-prosthetic aortic valve well-seated and normal function; trace ID --unable to wean dopamine but with ectopy; may have to switch to levo NSVT --short runs while on dopamine --seen and evaluated by cardiology, if long runs of VT may need amiodarone Hypervolemic Hyponatremia BETTIE --Cr back to baseline 0.9 and Na continues to improve with improved BP CAD --continue ASA, plavix COPD on home O2 --continue inhalers Hypertension --presently hypotensive on pressor Hyperlipidemia --continue statin Hypothyroidism --TSH low normal --continue levothyroxine Hypokalemia, resolved Nutrition: full liquids DVT prophylaxis: subq heparin Dispo: continues to require inpatient care. In my presence, close friend inquired of patient's wishes regarding DNR/DNI. Patient said "I do not want to think about it." FULL CODE. Visit type - Emergency Visit Emergency Visit: Yes ED Registration Date: 01/12/17 Care time: The patient presented to the Emergency Department on the above date and was hospitalized for further evaluation of their emergent condition. - New Patient This patient is new to me today: No - Critical Care Critical Care patient: Yes Total Critical Care Time (in minutes): 35 Critical Care Statement: The care of this patient involved high complexity decision making to prevent further life threatening deterioration of the patient 's condition and/or to evaluate & treat vital organ system(s) failure or risk of failure.
[2017-01-15] MEDS: BUDESONIDE/FORMETEROL FUMARATE 80/4.5 mcg INHALER IH SCH ×2 (09:19→21:26)
[2017-01-15] MEDS: AZTREONAM 1 GM in DEXTROSE 5%-WATER - 50 ML IVPB SCH ×2 (09:19→21:25)
[2017-01-15] MEDS: TIOTROPIUM BROMIDE 18 MCG/INH (DEVICE W/ 5 CAPSULES) IH SCH (09:21)
[2017-01-15] MEDS: ASPIRIN 81 MG CHEWABLE TABLETS PO SCH (09:26)
[2017-01-15] MEDS: CLOPIDOGREL BISULFATE 75 MG TABLET (FP) PO SCH (09:26)
--- NOTE | 2017-01-15 11:02 | PN ---
Progress Note, Physician History of Present Illness: seen and examined today in [facility]. states abd discomfort improving but still very nauseous. denies chest pain, palpitations, or sob. - Current Medication List Current Medications: Active Medications Acetaminophen (Ofirmev Injection -) 1,000 mg IVPB Q6H PRN PRN Reason: FEVER OR PAIN Stop: 01/15/17 13:53 Last Admin: 01/15/17 07:00 Dose: 1,000 mg Aspirin (Asa -) 81 mg PO DAILY [facility] Last Admin: 01/15/17 09:26 Dose: 81 mg Budesonide/Formoterol Fumarate (Symbicort 80/4.5mcg -) 1 puff IH BID [facility] Last Admin: 01/15/17 09:19 Dose: 1 puff Clopidogrel Bisulfate (Plavix -) 75 mg PO DAILY [facility] Last Admin: 01/15/17 09:26 Dose: 75 mg Heparin Sodium (Porcine) (Heparin -) 5,000 unit SQ TID [facility] Last Admin: 01/15/17 06:41 Dose: 5,000 unit Dopamine HCl/Dextrose (Dopamine 400 Mg/D5w -) 250 mls @ 5.103 mls/hr IVPB TITR [facility]; 2 MCG/KG/MIN PRN Reason: Protocol Last Admin: 01/15/17 05:15 Dose: Not Given Metronidazole (Flagyl 500mg Premixed Ivpb -) 100 mls @ 100 mls/hr IVPB Q8H-IV [facility] Last Admin: 01/15/17 09:19 Dose: 100 mls/hr Aztreonam 1 gm/ Dextrose 50 mls @ 100 mls/hr IVPB BID [facility] PRN Reason: Protocol Last Admin: 01/15/17 09:19 Dose: 100 mls/hr Vancomycin HCl 1,000 mg/ (Dextrose) 250 mls @ 166.667 mls/hr IVPB DAILY@2200 [facility] Levothyroxine Sodium (Synthroid -) 75 mcg PO DAILY@0700 [facility] Last Admin: 01/15/17 06:41 Dose: 75 mcg Metoclopramide HCl (Reglan Injection -) 10 mg IVPB Q6H PRN PRN Reason: NAUSEA AND/OR VOMITING Non-Formulary Medication (Simvastatin) 40 mg PO HS [facility] Tiotropium [place] (Spiriva -) 1 puff IH DAILY [facility] Last Admin: 01/15/17 09:21 Dose: 1 inh - Objective Vital Signs: Vital Signs Temperature 97.9 F 01/15/17 10:00 Pulse Rate 107 H 01/15/17 10:00 Respiratory Rate 20 01/15/17 10:00 Blood Pressure 99/50 01/15/17 10:00 O2 Sat by Pulse Oximetry (%) 100 01/15/17 09:00 Constitutional: Yes: No Distress, Calm Eyes: Yes: Conjunctiva Clear, EOM Intact, PERRL HENT: Yes: Atraumatic, Normocephalic Neck: Yes: Supple, Trachea Midline Cardiovascular: Yes: Regular Rate and Rhythm, Murmur, S1, S2. No: Bradycardia, Tachycardia, Pulse Irregular, Bruit, JVD, Gallop, Rub, S3, S4, Varicosities Respiratory: Yes: Regular, Diminished, On Nasal O2. No: Rales, Rhonchi, SOB, Wheezes Gastrointestinal: Yes: Normal Bowel Sounds, Soft. No: Distention, Tenderness Edema: No Peripheral Pulses WNL: Yes Peripheral Pulses: Left Doralis Pedis: 2+, Right Dorsalis Pedis: 2+ Neurological: Yes: Alert, Oriented Psychiatric: Yes: Alert, Oriented Labs: CBC, BMP 01/15/17 06:00 01/15/17 06:00 INR, PTT INR 1.12 (0.82-1.09) 01/12/17 15:45 - ....Imaging Chest X-ray: Report Reviewed, Image Reviewed EKG: Report Reviewed, Image Reviewed Other: Report Reviewed, Image Reviewed (tele-nsr, vpaced, frequent pvcs, multiple episodes of NSVT, longest run 36beats, multiple other shorter runs) Assessment/Plan 81 year old woman with a history of HTN, HLD, CAD s/p CABG, AVR, Chronic combined systolic/diastolic CHF, severe LV systolic dysfunction s/p Bi-V ICD, paralyzed L cosme-diaphragm, admitted for nausea, vomiting, abdominal pain, UTI possible urosepsis, hypotension. Ventricular tachycardia-1 episode of 36beats overnight, asymptomatic, no ICD shock, multiple other shorter runs of NSVT, h/o NSVT -maybe stimulated by dopamine with underlying CHF and CAD as well as being off her usual bblocker -would wean off dopamine axvi, can use alternative pressor if needed, note pts BP is normally low normal -ICD in place, no apparent shocks delivered overnight -bblocker is held due to hypotension, if bp tolerates would resume xavi -if VT continues despite stopping dopamine may benefit from Amiodarone for VT suppression (as currently unable to use bblockers at this time due to hypotension) -monitor on tele for now may need upgrade to icu Hypotension-pts blood pressure is chronically low normal but more hypotensive than usual on admission -presume infectious process with possible sepsis, possible urosepsis -CT a/p was done -receiving Abx -currently on dopamine for BP support with reported little urine output, wean of dopamine xavi as above -pt is currently euvolemic, if needed can give small boluses of IVF and monitor for fluid overload Chronic combined systolic/diastolic CHF, h/o severe LV systolic dysfunction s/p Bi-V ICD -currently overall euvolemic -holding Lasix and anti-HTN meds for now due to hypotension, resume as tolerates -fluids as needed as above CAD s/p CABG and AVR -stable -cont ASA, plavix, zocor for now -holding bblocker for hypotension
--- NOTE | 2017-01-15 14:48 | PN ---
Progress Note (short form) - Note Progress Note: S/P transfer to icu s/p hypotension diverticulitis Hyponatremia improving BETTIE resolving Current Medications Aspirin (Asa -) 81 mg PO DAILY [facility] Last Admin: 01/15/17 09:26 Dose: 81 mg Budesonide/Formoterol Fumarate (Symbicort 80/4.5mcg -) 1 puff IH BID [facility] Last Admin: 01/15/17 09:19 Dose: 1 puff Clopidogrel Bisulfate (Plavix -) 75 mg PO DAILY [facility] Last Admin: 01/15/17 09:26 Dose: 75 mg Heparin Sodium (Porcine) (Heparin -) 5,000 unit SQ TID [facility] Last Admin: 01/15/17 14:33 Dose: 5,000 unit Dopamine HCl/Dextrose (Dopamine 400 Mg/D5w -) 250 mls @ 5.103 mls/hr IVPB TITR [facility]; 2 MCG/KG/MIN PRN Reason: Protocol Last Titration: 01/15/17 12:30 Dose: 2 mcg/kg/min Metronidazole (Flagyl 500mg Premixed Ivpb -) 100 mls @ 100 mls/hr IVPB Q8H-IV [facility] Last Admin: 01/15/17 09:19 Dose: 100 mls/hr Aztreonam 1 gm/ Dextrose 50 mls @ 100 mls/hr IVPB BID [facility] PRN Reason: Protocol Last Admin: 01/15/17 09:19 Dose: 100 mls/hr Vancomycin HCl 1,000 mg/ (Dextrose) 250 mls @ 166.667 mls/hr IVPB DAILY@2200 [facility] Levothyroxine Sodium (Synthroid -) 75 mcg PO DAILY@0700 [facility] Last Admin: 01/15/17 06:41 Dose: 75 mcg Metoclopramide HCl (Reglan Injection -) 10 mg IVPB Q6H PRN PRN Reason: NAUSEA AND/OR VOMITING Non-Formulary Medication (Simvastatin) 40 mg PO HS [facility] Tiotropium [place] (Spiriva -) 1 puff IH DAILY [facility] Last Admin: 01/15/17 09:21 Dose: 1 inh Last Vital Signs Temp Pulse Resp BP Pulse Ox 97.9 F 109 H 20 116/91 100 01/15/17 14:00 01/15/17 14:00 01/15/17 14:00 01/15/17 14:00 01/15/17 12:08 Lungs bibasilar rales Heart reg s1s2 LEYLA Abd soft n Ext no edema CBC, BMP 01/15/17 06:00 01/15/17 06:00 Imp -Hypotension - BP improving, but fluctuating between normal and TOO LOW Tachycardia prob from low dose dopamine Hyponatremia improved Azotemia non oliguric, Plan- continue cautious hydration
[2017-01-15] MEDS ORDERED: ACETAMINOPHEN 1000 MG/100 ML VIAL (NON FORMULARY) IVPB PRN (15:19)
[2017-01-15] MEDS ORDERED: PT OWN MED DRAWER 7, Y5N ONE (21:11)
[2017-01-15] MEDS ORDERED: VANCOMYCIN 1 GRAM (PRE-DOCKED) 1,000 MG/250 ML BAG IVPB SCH (22:00)
[2017-01-15] MEDS ORDERED: VANCOMYCIN 1,000 MG in DEXTROSE 5%-WATER - 250 ML IVPB SCH (22:00)
[2017-01-15] MEDS ORDERED: morphine CARPU-JECT 2 MG/1 ML DISP.SYRIN ONE (23:40)
[2017-01-16] MEDS ORDERED: oxyCODONE HCL 5 MG TABLET ONE (00:09)
[2017-01-16] MEDS ORDERED: ACETAMINOPHEN 325 MG TABLET (FP) ONE (00:09)
[2017-01-16] MEDS ORDERED: ACETAMINOPHEN 325 MG TABLET (FP) PO PRN (00:21)
[2017-01-16] MEDS ORDERED: oxyCODONE HCL 5 MG TABLET PO PRN ×2 (00:21)
[2017-01-16] MEDS: METRONIDAZOLE 500 MG PREMIXED 100 ML IVPB SCH (01:04)
[2017-01-16] MEDS: ACETAMINOPHEN 325 MG TABLET (FP) PO PRN (03:40)
[2017-01-16] MEDS: DOPAMINE 400 MG/D5W - 250 ML IVPB SCH (05:15)
[2017-01-16 06:02] LABS: MCHC 33.7 g/dl (32.0-36.0); MEAN CELL VOLUME 80.2 fl (80-96); MEAN PLT VOLUME 8.6 fl (7.5-11.1); PLATELET COUNT 324 K/MM3 (134-434); RDW 15.5 % (11.6-15.6); WHITE BLOOD COUNT 10.6 K/mm3 (4.0-10.0)
[2017-01-16] MEDS: HEPARIN NA (PORCINE) 5,000 UNITS/ML 1ML VIAL SQ SCH ×3 (06:13→21:21)
[2017-01-16] MEDS: LEVOTHYROXINE NA 75 MCG TABLET (FP) PO SCH (06:13)
[2017-01-16 06:40] LABS: ALBUMIN 2.4 g/dl (3.4-5.0); ANION GAP 12 (8-16); CALCIUM 8.4 mg/dL (8.5-10.1); CO2 33 mmol/L (21-32); GLUCOSE,RANDOM 89 mg/dL (74-106); MAGNESIUM 2.4 mg/dL (1.8-2.4)
[2017-01-16 06:45] LABS: ALK PHOS 102 U/L (45-117); BILIRUBIN,TOTAL 0.7 mg/dL (0.2-1.0); CREATININE 0.8 mg/dL (0.55-1.02); PHOSPHOROUS 2.7 mg/dL (2.5-4.9); SGOT/AST 70 U/L (15-37); SGPT/ALT 21 U/L (12-78); TOT PROT 6.1 g/dl (6.4-8.2)
--- NOTE | 2017-01-16 08:21 | PN ---
Progress Note, Physician Chief Complaint: ID Vancomycin Aztreonam Metrodnazole NO complaints - Current Medication List Current Medications: Active Medications Acetaminophen (Ofirmev Injection -) 1,000 mg IVPB Q6H PRN PRN Reason: FEVER OR PAIN Stop: 01/16/17 09:20 Last Admin: 01/15/17 21:51 Dose: 1,000 mg Acetaminophen (Tylenol -) 650 mg PO Q6H PRN PRN Reason: PAIN Last Admin: 01/16/17 03:40 Dose: 650 mg Acetaminophen (Tylenol -) 325 mg PO Q6H PRN PRN Reason: PAIN Last Admin: 01/16/17 00:15 Dose: 325 mg Aspirin (Asa -) 81 mg PO DAILY [facility] Last Admin: 01/15/17 09:26 Dose: 81 mg Budesonide/Formoterol Fumarate (Symbicort 80/4.5mcg -) 1 puff IH BID [facility] Last Admin: 01/15/17 21:26 Dose: 1 puff Clopidogrel Bisulfate (Plavix -) 75 mg PO DAILY [facility] Last Admin: 01/15/17 09:26 Dose: 75 mg Heparin Sodium (Porcine) (Heparin -) 5,000 unit SQ TID [facility] Last Admin: 01/16/17 06:13 Dose: 5,000 unit Dopamine HCl/Dextrose (Dopamine 400 Mg/D5w -) 250 mls @ 5.103 mls/hr IVPB TITR [facility]; 2 MCG/KG/MIN PRN Reason: Protocol Last Admin: 01/16/17 05:15 Dose: 5.103 mls/hr Metronidazole (Flagyl 500mg Premixed Ivpb -) 100 mls @ 100 mls/hr IVPB Q8H-IV [facility] Last Admin: 01/16/17 01:04 Dose: 100 mls/hr Aztreonam 1 gm/ Dextrose 50 mls @ 100 mls/hr IVPB BID [facility] PRN Reason: Protocol Last Admin: 01/15/17 21:25 Dose: 100 mls/hr Vancomycin HCl 1,000 mg/ (Dextrose) 250 mls @ 166.667 mls/hr IVPB DAILY@2200 [facility] Last Admin: 01/15/17 21:25 Dose: 166.667 mls/hr Levothyroxine Sodium (Synthroid -) 75 mcg PO DAILY@0700 [facility] Last Admin: 01/16/17 06:13 Dose: 75 mcg Metoclopramide HCl (Reglan Injection -) 10 mg IVPB Q6H PRN PRN Reason: NAUSEA AND/OR VOMITING Non-Formulary Medication (Simvastatin) 40 mg PO HS [facility] Oxycodone HCl (Roxicodone -) 10 mg PO Q6H PRN PRN Reason: PAIN LEVEL 6-10 Oxycodone HCl (Roxicodone -) 5 mg PO Q6H PRN PRN Reason: PAIN LEVEL 1-5 Tiotropium [place] (Spiriva -) 1 puff IH DAILY [facility] Last Admin: 01/15/17 09:21 Dose: 1 inh - Objective Vital Signs: Vital Signs Temperature 97.7 F 01/16/17 06:00 Pulse Rate 110 H 01/16/17 06:00 Respiratory Rate 19 01/16/17 06:00 Blood Pressure 98/75 01/16/17 06:00 O2 Sat by Pulse Oximetry (%) 94 L 01/15/17 20:43 Constitutional: Yes: No Distress Eyes: Yes: WNL, Conjunctiva Clear HENT: Yes: WNL, Atraumatic Neck: Yes: WNL, Supple Cardiovascular: Yes: Regular Rate and Rhythm, S1, S2 Respiratory: Yes: WNL, Regular, CTA Bilaterally Gastrointestinal: Yes: WNL, Normal Bowel Sounds, Soft. No: Tenderness Edema: No Labs: CBC, BMP 01/16/17 05:00 01/16/17 05:00 INR, PTT INR 1.12 (0.82-1.09) 01/12/17 15:45 Assessment/Plan Microbiology 01/12/17 15:45 Urine - Urine Clean Catch Urine Culture - Final Contaminated: Please Repeat 01/12/17 20:50 Blood - Peripheral Venous Blood Culture - Preliminary NO GROWTH OBTAINED AFTER 72 HOURS, INCUBATION TO CONTINUE FOR 2 DAYS. 01/12/17 20:50 Blood - Peripheral Venous Blood Culture - Preliminary NO GROWTH OBTAINED AFTER 72 HOURS, INCUBATION TO CONTINUE FOR 2 DAYS. Laboratory Tests 01/12/17 01/16/17 01/16/17 15:45 05:00 05:00 WBC 10.6 H D Hgb 11.3 Plt Count 324 INR 1.12 Creatinine 0.8 AST 70 H D ALT 21 Alkaline Phosphatase 102 Assessment Patient appears comfortable I do not feel she has sepsis afebrile cultures negative U/A neg Plan Would stop antibiotic and observe Patricia VILLAR
[2017-01-16] MEDS ORDERED: NAPH,MB-DB/K PH,MBDB POWDER PACKET PO ONE (08:40)
[2017-01-16] MEDS: METOCLOPRAMIDE HCL INJECTION 10 MG/2 ML VIAL IVPB PRN ×2 (08:44→15:39)
[2017-01-16] MEDS: ASPIRIN 81 MG CHEWABLE TABLETS PO SCH (09:43)
[2017-01-16] MEDS: TIOTROPIUM BROMIDE 18 MCG/INH (DEVICE W/ 5 CAPSULES) IH SCH (09:44)
[2017-01-16] MEDS: CLOPIDOGREL BISULFATE 75 MG TABLET (FP) PO SCH (09:44)
[2017-01-16] MEDS: BUDESONIDE/FORMETEROL FUMARATE 80/4.5 mcg INHALER IH SCH ×2 (09:45→21:21)
[2017-01-16] MEDS ORDERED: ACETAMINOPHEN 1000 MG/100 ML VIAL (NON FORMULARY) IVPB ONE ×2 (10:32→15:20)
--- NOTE | 2017-01-16 11:15 | PN ---
Progress Note, Physician History of Present Illness: 81 year old woman with a history of HTN, HLD, CAD s/p CABG, AVR, Chronic combined systolic/diastolic CHF, severe LV systolic dysfunction s/p Bi-V ICD, paralyzed L cosme-diaphragm, admitted for nausea, vomiting, abdominal pain, UTI possible urosepsis, hypotension. - Current Medication List Current Medications: Active Medications Acetaminophen (Tylenol -) 650 mg PO Q6H PRN PRN Reason: PAIN Last Admin: 01/16/17 03:40 Dose: 650 mg Acetaminophen (Tylenol -) 325 mg PO Q6H PRN PRN Reason: PAIN Last Admin: 01/16/17 00:15 Dose: 325 mg Acetaminophen (Ofirmev Injection -) 1,000 mg IVPB ONCE ONE Stop: 01/16/17 10:33 Last Admin: 01/16/17 10:35 Dose: 1,000 mg Aspirin (Asa -) 81 mg PO DAILY [facility] Last Admin: 01/16/17 09:43 Dose: 81 mg Budesonide/Formoterol Fumarate (Symbicort 80/4.5mcg -) 1 puff IH BID [facility] Last Admin: 01/16/17 09:45 Dose: 1 puff Clopidogrel Bisulfate (Plavix -) 75 mg PO DAILY [facility] Last Admin: 01/16/17 09:44 Dose: 75 mg Heparin Sodium (Porcine) (Heparin -) 5,000 unit SQ TID [facility] Last Admin: 01/16/17 06:13 Dose: 5,000 unit Dopamine HCl/Dextrose (Dopamine 400 Mg/D5w -) 250 mls @ 5.103 mls/hr IVPB TITR [facility]; 2 MCG/KG/MIN PRN Reason: Protocol Last Admin: 01/16/17 05:15 Dose: 5.103 mls/hr Levothyroxine Sodium (Synthroid -) 75 mcg PO DAILY@0700 [facility] Last Admin: 01/16/17 06:13 Dose: 75 mcg Metoclopramide HCl (Reglan Injection -) 10 mg IVPB Q6H PRN PRN Reason: NAUSEA AND/OR VOMITING Last Admin: 01/16/17 08:44 Dose: 10 mg Non-Formulary Medication (Simvastatin) 40 mg PO HS [facility] Oxycodone HCl (Roxicodone -) 10 mg PO Q6H PRN PRN Reason: PAIN LEVEL 6-10 Oxycodone HCl (Roxicodone -) 5 mg PO Q6H PRN PRN Reason: PAIN LEVEL 1-5 Tiotropium [place] (Spiriva -) 1 puff IH DAILY [facility] Last Admin: 01/16/17 09:44 Dose: 1 inh - Objective Vital Signs: Vital Signs Temperature 98 F 01/16/17 10:31 Pulse Rate 110 H 01/16/17 10:31 Respiratory Rate 19 01/16/17 10:31 Blood Pressure 101/72 01/16/17 10:31 O2 Sat by Pulse Oximetry (%) 100 01/16/17 09:58 Constitutional: Yes: Well Nourished Eyes: Yes: WNL, Conjunctiva Clear, EOM Intact HENT: Yes: WNL, Atraumatic, Normocephalic Neck: Yes: WNL, Supple, Trachea Midline Cardiovascular: Yes: WNL, Regular Rate and Rhythm Respiratory: Yes: WNL, Regular, CTA Bilaterally Gastrointestinal: Yes: WNL, Normal Bowel Sounds Genitourinary: Yes: WNL Musculoskeletal: Yes: WNL Extremities: Yes: WNL Edema: No Integumentary: Yes: WNL Neurological: Yes: WNL, Alert, Oriented ...Motor Strength: WNL Psychiatric: Yes: WNL Labs: CBC, BMP 01/16/17 05:00 01/16/17 05:00 INR, PTT INR 1.12 (0.82-1.09) 01/12/17 15:45 Problem List - Problems (1) DVT prophylaxis Code(s): [id number] - (2) Hypokalemia Code(s): E87.6 - HYPOKALEMIA (3) Hyponatremia Code(s): E87.1 - HYPO-OSMOLALITY AND HYPONATREMIA (4) UTI (urinary tract infection) Code(s): N39.0 - URINARY TRACT INFECTION, SITE NOT SPECIFIED Qualifiers: Urinary tract infection type: site unspecified Hematuria presence: without hematuria Qualified Code(s): N39.0 - Urinary tract infection, site not specified; N39.0 - Urinary tract infection, site not specified; R31.9 - Hematuria, unspecified; R31.9 - Hematuria, unspecified (5) Acute on chronic systolic CHF (congestive heart failure) Code(s): I50.23 - ACUTE ON CHRONIC SYSTOLIC (CONGESTIVE) HEART FAILURE (6) CHF NYHA class III Code(s): I50.9 - HEART FAILURE, UNSPECIFIED (7) CHF exacerbation Code(s): I50.9 - HEART FAILURE, UNSPECIFIED Qualifiers: Congestive heart failure type: unspecified congestive heart failure type Qualified Code(s): I50.9 - Heart failure, unspecified; I50.9 - Heart failure , unspecified; I50.9 - Heart failure, unspecified; I50.9 - Heart failure, unspecified (8) COPD (chronic obstructive pulmonary disease) Code(s): J44.9 - CHRONIC OBSTRUCTIVE PULMONARY DISEASE, UNSPECIFIED (9) Chronic hypoxemic respiratory failure Code(s): J96.11 - CHRONIC RESPIRATORY FAILURE WITH HYPOXIA (10) Diaphragm paralysis Code(s): J98.6 - DISORDERS OF DIAPHRAGM (11) Leukocytosis Code(s): D72.829 - ELEVATED WHITE BLOOD CELL COUNT, UNSPECIFIED (12) Nonsustained ventricular tachycardia Code(s): I47.2 - VENTRICULAR TACHYCARDIA (13) Respiratory failure Code(s): J96.90 - RESPIRATORY FAILURE, UNSP, UNSP W HYPOXIA OR HYPERCAPNIA (14) Shortness of breath Code(s): R06.02 - SHORTNESS OF BREATH (15) Systolic and diastolic CHF w/reduced LV function, NYHA class 4 Code(s): I50.40 - UNSP COMBINED SYSTOLIC AND DIASTOLIC (CONGESTIVE) HRT FAIL (16) Anxiety Code(s): F41.9 - ANXIETY DISORDER, UNSPECIFIED (17) Anxiety 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 Code(s): F41.0 - PANIC DISORDER [EPISODIC PAROXYSMAL ANXIETY] (18) Aortic valve replaced Code(s): Z95.2 - PRESENCE OF PROSTHETIC HEART VALVE (19) CAD (coronary artery disease) Code(s): I25.10 - ATHSCL HEART DISEASE OF [place] CORONARY ARTERY W/O ANG PCTRS (20) CHF (congestive heart failure) Code(s): I50.9 - HEART FAILURE, UNSPECIFIED Qualifiers: Congestive heart failure type: unspecified congestive heart failure type Congestive heart failure chronicity: unspecified congestive heart failure chronicity Qualified Code(s): I50.9 - Heart failure, unspecified; I50.9 - Heart failure, unspecified; I50.9 - Heart failure, unspecified; I50.9 - Heart failure, unspecified (21) COPD bronchitis Code(s): J44.9 - CHRONIC OBSTRUCTIVE PULMONARY DISEASE, UNSPECIFIED (22) Diabetes Code(s): E11.9 - TYPE 2 DIABETES MELLITUS WITHOUT COMPLICATIONS (23) Hx of CABG Code(s): Z95.1 - PRESENCE OF AORTOCORONARY BYPASS GRAFT (24) Hyperlipidemia Code(s): E78.5 - HYPERLIPIDEMIA, UNSPECIFIED (25) Hypertension Code(s): I10 - ESSENTIAL (PRIMARY) HYPERTENSION (26) Hypothyroidism Code(s): E03.9 - HYPOTHYROIDISM, UNSPECIFIED (27) ICD (implantable cardioverter-defibrillator) in place Code(s): Z95.810 - PRESENCE OF AUTOMATIC (IMPLANTABLE) CARDIAC DEFIBRILLATOR (28) Multiple allergies Code(s): Z88.9 - ALLERGY STATUS TO UNSP DRUG/MEDS/BIOL SUBST STATUS (29) Obese Code(s): E66.9 - OBESITY, UNSPECIFIED (30) Sleep apnea in adult Code(s): G47.33 - OBSTRUCTIVE SLEEP APNEA (ADULT) (PEDIATRIC) (31) Valvular heart disease Code(s): I38 - ENDOCARDITIS, VALVE UNSPECIFIED Assessment/Plan 81 year old woman with a history of HTN, HLD, CAD s/p CABG, AVR, Chronic combined systolic/diastolic CHF, severe LV systolic dysfunction s/p Bi-V ICD, paralyzed L cosme-diaphragm, admitted for nausea, vomiting, abdominal pain, UTI possible urosepsis, hypotension. Ventricular tachycardia-1 episode of 36beats yesterday, two runs 14 and 18 beats overnight, asymptomatic, no ICD shock, -maybe stimulated by dopamine with underlying CHF and CAD as well as being off her usual bblocker -would wean off dopamine xavi, can use alternative pressor if needed, note pts BP is normally low normal -ICD in place, no apparent shocks delivered overnight -bblocker is held due to hypotension, if bp tolerates would resume xavi - Hypotension-pts blood pressure is chronically low normal but more hypotensive than usual on admission -presume infectious process with possible sepsis, possible urosepsis -CT a/p was done -receiving Abx -currently on dopamine for BP support with reported little urine output, wean of dopamine xavi as above -pt is currently euvolemic, if needed can give small boluses of IVF and monitor for fluid overload Chronic combined systolic/diastolic CHF, h/o severe LV systolic dysfunction s/p Bi-V ICD -currently overall euvolemic -holding Lasix and anti-HTN meds for now due to hypotension, resume as tolerates -fluids as needed as above CAD s/p CABG and AVR -stable -cont ASA, plavix, zocor for now -holding bblocker for hypotension cc time 35 min
--- NOTE | 2017-01-16 11:20 | PN ---
Progress Note, Physician History of Present Illness: Pt seen and examined at bedside. She says she does not feel well today. She denies worsening of shortness of breath. - Current Medication List Current Medications: Active Medications Acetaminophen (Tylenol -) 650 mg PO Q6H PRN PRN Reason: PAIN Last Admin: 01/16/17 03:40 Dose: 650 mg Acetaminophen (Tylenol -) 325 mg PO Q6H PRN PRN Reason: PAIN Last Admin: 01/16/17 00:15 Dose: 325 mg Acetaminophen (Ofirmev Injection -) 1,000 mg IVPB ONCE ONE Stop: 01/16/17 10:33 Last Admin: 01/16/17 10:35 Dose: 1,000 mg Aspirin (Asa -) 81 mg PO DAILY [facility] Last Admin: 01/16/17 09:43 Dose: 81 mg Budesonide/Formoterol Fumarate (Symbicort 80/4.5mcg -) 1 puff IH BID [facility] Last Admin: 01/16/17 09:45 Dose: 1 puff Clopidogrel Bisulfate (Plavix -) 75 mg PO DAILY [facility] Last Admin: 01/16/17 09:44 Dose: 75 mg Heparin Sodium (Porcine) (Heparin -) 5,000 unit SQ TID [facility] Last Admin: 01/16/17 06:13 Dose: 5,000 unit Dopamine HCl/Dextrose (Dopamine 400 Mg/D5w -) 250 mls @ 5.103 mls/hr IVPB TITR [facility]; 2 MCG/KG/MIN PRN Reason: Protocol Last Admin: 01/16/17 05:15 Dose: 5.103 mls/hr Levothyroxine Sodium (Synthroid -) 75 mcg PO DAILY@0700 [facility] Last Admin: 01/16/17 06:13 Dose: 75 mcg Metoclopramide HCl (Reglan Injection -) 10 mg IVPB Q6H PRN PRN Reason: NAUSEA AND/OR VOMITING Last Admin: 01/16/17 08:44 Dose: 10 mg Non-Formulary Medication (Simvastatin) 40 mg PO HS [facility] Oxycodone HCl (Roxicodone -) 10 mg PO Q6H PRN PRN Reason: PAIN LEVEL 6-10 Oxycodone HCl (Roxicodone -) 5 mg PO Q6H PRN PRN Reason: PAIN LEVEL 1-5 Tiotropium [place] (Spiriva -) 1 puff IH DAILY [facility] Last Admin: 01/16/17 09:44 Dose: 1 inh - Objective Vital Signs: Vital Signs Temperature 98 F 01/16/17 10:31 Pulse Rate 110 H 01/16/17 10:31 Respiratory Rate 19 01/16/17 10:31 Blood Pressure 101/72 01/16/17 10:31 O2 Sat by Pulse Oximetry (%) 100 01/16/17 09:58 Constitutional: Yes: Calm Eyes: Yes: Conjunctiva Clear HENT: Yes: Atraumatic Neck: Yes: Supple Cardiovascular: Yes: S1, S2 Respiratory: Yes: On Nasal O2 Gastrointestinal: Yes: Normal Bowel Sounds, Soft Genitourinary: Yes: WNL Musculoskeletal: Yes: WNL Edema: No Neurological: Yes: WNL, Oriented Psychiatric: Yes: Oriented Labs: CBC, BMP 01/16/17 05:00 01/16/17 05:00 INR, PTT INR 1.12 (0.82-1.09) 01/12/17 15:45 - ....Imaging Chest X-ray: Report Reviewed Problem List - Problems (1) Hypokalemia Code(s): E87.6 - HYPOKALEMIA (2) Hyponatremia Code(s): E87.1 - HYPO-OSMOLALITY AND HYPONATREMIA (3) UTI (urinary tract infection) Code(s): N39.0 - URINARY TRACT INFECTION, SITE NOT SPECIFIED Qualifiers: Qualified Code(s): N39.0 - Urinary tract infection, site not specified; N39.0 - Urinary tract infection, site not specified; R31.9 - Hematuria, unspecified; R31.9 - Hematuria, unspecified (4) Acute on chronic systolic CHF (congestive heart failure) Code(s): I50.23 - ACUTE ON CHRONIC SYSTOLIC (CONGESTIVE) HEART FAILURE (5) COPD (chronic obstructive pulmonary disease) Code(s): J44.9 - CHRONIC OBSTRUCTIVE PULMONARY DISEASE, UNSPECIFIED Assessment/Plan Current Medications Generic Name Dose Route Start Last Admin Trade Name Freq PRN Reason Stop Dose Admin Acetaminophen 650 mg 01/16/17 00:21 01/16/17 03:40 Tylenol - PO 650 mg Q6H PRN Administration PAIN Acetaminophen 325 mg 01/16/17 00:21 01/16/17 00:15 Tylenol - PO 325 mg Q6H PRN Administration PAIN Acetaminophen 1,000 mg 01/16/17 10:32 01/16/17 10:35 Ofirmev Injection - IVPB 01/16/17 10:33 1,000 mg ONCE ONE Administration Aspirin 81 mg 01/14/17 10:00 01/16/17 09:43 Asa - PO 81 mg DAILY [facility] Administration Budesonide/Formoterol Fumarate 1 puff 01/14/17 10:00 01/16/17 09:45 Symbicort 80/4.5mcg - IH 1 puff BID [facility] Administration Clopidogrel Bisulfate 75 mg 01/14/17 10:00 01/16/17 09:44 Plavix - PO 75 mg DAILY [facility] Administration Heparin Sodium (Porcine) 5,000 unit 01/14/17 06:00 01/16/17 06:13 Heparin - SQ 5,000 unit TID [facility] Administration Dopamine HCl/Dextrose 250 mls @ 5.103 mls/hr 01/14/17 05:15 01/16/17 05:15 Dopamine 400 Mg/D5w - IVPB 5.103 mls/hr TITR [facility] Administration Protocol 2 MCG/KG/MIN Levothyroxine Sodium 75 mcg 01/14/17 07:00 01/16/17 06:13 Synthroid - PO 75 mcg DAILY@0700 [facility] Administration Metoclopramide HCl 10 mg 01/14/17 05:21 01/16/17 08:44 Reglan Injection - IVPB 10 mg Q6H PRN Administration NAUSEA AND/OR VOMITING Non-Formulary Medication 40 mg 01/14/17 22:00 Simvastatin PO HS [facility] Oxycodone HCl 10 mg 01/16/17 00:21 Roxicodone - PO Q6H PRN PAIN LEVEL 6-10 Oxycodone HCl 5 mg 01/16/17 00:21 Roxicodone - PO Q6H PRN PAIN LEVEL 1-5 Tiotropium [place] 1 puff 01/14/17 10:00 01/16/17 09:44 Spiriva - IH 1 inh DAILY [facility] Administration 1. UTI 2. hyponatremia 3. paralyzed hemidiaphragm 4. HTN 5. valvular heart disease 6. azotemia 7. hypothyroid 8. CAD 9. hypokalemia 10. alkalosis Plan - wean off dopamine - cardio input appreciated - can give gentle fluids (ns at 35) and monitor volume status - pts po intake remains poor - abx stopped, discussed with ID - keep diuretics on hold, if she does need to be diureses please use lasix - will follow Dr Bella
--- NOTE | 2017-01-16 13:02 | PN ---
Teaching Attending Note Name of Resident: Mario Mayes ATTENDING PHYSICIAN STATEMENT I saw and evaluated the patient. I reviewed the resident's note and discussed the case with the resident. I agree with the resident's findings and plan as documented. SUBJECTIVE: Pt seen and examined in the ICU. Transferred down for dopamine gtt for hypotension given severe LV systolic dysfunction. OBJECTIVE: Last Vital Signs Temp Pulse Resp BP Pulse Ox 98 F 107 H 22 95/57 100 01/16/17 10:31 01/16/17 12:06 01/16/17 12:06 01/16/17 12:06 01/16/17 12:00 Intake & Output 01/13/17 01/14/17 01/15/17 01/16/17 23:59 23:59 23:59 23:59 Intake Total 1450 1361.2 1358.5 280 Output Total 950 800 400 Balance 1450 411.2 558.5 -120 Weight 145 lb 8 oz 150 lb 150 lb 6.4 oz 150 lb 3.2 oz Gen: NAD at rest Heart: RRR, +systolic murmur Lung: decreased breath sounds at the bases Abd: soft, nontender Ext: no edema CBC, BMP 01/16/17 05:00 01/16/17 05:00 Active Medications Acetaminophen (Tylenol -) 650 mg PO Q6H PRN PRN Reason: PAIN Last Admin: 01/16/17 03:40 Dose: 650 mg Acetaminophen (Tylenol -) 325 mg PO Q6H PRN PRN Reason: PAIN Last Admin: 01/16/17 00:15 Dose: 325 mg Aspirin (Asa -) 81 mg PO DAILY [facility] Last Admin: 01/16/17 09:43 Dose: 81 mg Budesonide/Formoterol Fumarate (Symbicort 80/4.5mcg -) 1 puff IH BID [facility] Last Admin: 01/16/17 09:45 Dose: 1 puff Clopidogrel Bisulfate (Plavix -) 75 mg PO DAILY [facility] Last Admin: 01/16/17 09:44 Dose: 75 mg Heparin Sodium (Porcine) (Heparin -) 5,000 unit SQ TID [facility] Last Admin: 01/16/17 06:13 Dose: 5,000 unit Dopamine HCl/Dextrose (Dopamine 400 Mg/D5w -) 250 mls @ 5.103 mls/hr IVPB TITR [facility]; 2 MCG/KG/MIN PRN Reason: Protocol Last Admin: 01/16/17 05:15 Dose: 5.103 mls/hr Levothyroxine Sodium (Synthroid -) 75 mcg PO DAILY@0700 [facility] Last Admin: 01/16/17 06:13 Dose: 75 mcg Metoclopramide HCl (Reglan Injection -) 10 mg IVPB Q6H PRN PRN Reason: NAUSEA AND/OR VOMITING Last Admin: 01/16/17 08:44 Dose: 10 mg Non-Formulary Medication (Simvastatin) 40 mg PO HS [facility] Oxycodone HCl (Roxicodone -) 10 mg PO Q6H PRN PRN Reason: PAIN LEVEL 6-10 Oxycodone HCl (Roxicodone -) 5 mg PO Q6H PRN PRN Reason: PAIN LEVEL 1-5 Tiotropium [place] (Spiriva -) 1 puff IH DAILY [facility] Last Admin: 01/16/17 09:44 Dose: 1 inh ASSESSMENT AND PLAN: UTI Septic vs Cardiogenic Shock Severe LV Systolic Dysfunction s/p Bi-V ICD Mitral Regurgitation Pulmonary HTN s/p AVR CAD Hyponatremia Hypothyroidism - taper off dopamine gtt - IVF - lasix as needed - O2 to keep Spo2 >90% - echocardiogram - antibiotics completed - PO as tolerated - DVT prophylaxis - continue ICU monitoring for now critical care time spent in reviewing chart, evaluating patient and formulating plan 35 min
--- NOTE | 2017-01-16 14:21 | PN ---
Physical Exam: SUBJECTIVE: 81 year old woman with a history of HTN, HLD, CAD s/p CABG, AVR, Chronic combined systolic/diastolic CHF s/p AICD/PPM, severe LV systolic dysfunction s/ p Bi-V ICD, s/p aortic valve replacement, paralyzed L cosme-diaphragm, recurrent UTI's, who was admitted for UTI w/suspicion of urosepsis, and hypotension. Overnight no acute events. Patient complains of nausea this AM. Also complains of shoulder and neck pain.Mild abdominal pain. Denies chest pain, vomiting, lightheadedness, fevers/chills, cough, or SOB. Patient is afebrile and hemodynamically stable on 2 mcg/kg Dopamine. MAP this AM consistently over 65. OBJECTIVE: Vital Signs Period Temp Pulse Resp BP Sys/Camilo Pulse Ox Last 24 Hr 97.0 F-98.0 F 101-121 15-26 91-113/46-75 94-100 GENERAL: The patient is awake, alert, and fully oriented, in no acute distress. HEAD: Normal with no signs of trauma. EYES: PERRL, extraocular movements intact, sclera anicteric, conjunctiva clear. No ptosis. LUNGS: Breath sounds equal, clear to auscultation bilaterally, no wheezes, no crackles, no accessory muscle use. HEART: Regular rate and rhythm, S1, S2 without murmur, rub or gallop. ABDOMEN: Soft, nontender, nondistended, normoactive bowel sounds, no guarding, no rebound, no hepatosplenomegaly, no masses. EXTREMITIES: 2+ pulses, warm, well-perfused, no edema. PSYCH: Normal mood, normal affect. SKIN: Warm, dry, normal turgor, no rashes or lesions noted Laboratory Results - last 24 hr 01/16/17 01/16/17 05:00 05:00 WBC 10.6 H D RBC 4.18 Hgb 11.3 Hct 33.5 MCV 80.2 MCH 27.0 MCHC 33.7 RDW 15.5 Plt Count 324 MPV 8.6 Sodium 130 L Potassium 3.9 Chloride 85 L Carbon Dioxide 33 H Anion Gap 12 BUN 35 H Creatinine 0.8 Creat Clearance w eGFR > 60 Random Glucose 89 Calcium 8.4 L Phosphorus 2.7 Magnesium 2.4 Total Bilirubin 0.7 AST 70 H D ALT 21 Alkaline Phosphatase 102 Total Protein 6.1 L Albumin 2.4 L Active Medications Generic Name Dose Route Start Last Admin Trade Name Freq PRN Reason Stop Dose Admin Acetaminophen 650 mg 01/16/17 00:21 01/16/17 03:40 Tylenol - PO 650 mg Q6H PRN Administration PAIN Acetaminophen 325 mg 01/16/17 00:21 01/16/17 00:15 Tylenol - PO 325 mg Q6H PRN Administration PAIN Aspirin 81 mg 01/14/17 10:00 01/16/17 09:43 Asa - PO 81 mg DAILY MAGO Administration Budesonide/Formoterol Fumarate 1 puff 01/14/17 10:00 01/16/17 09:45 Symbicort 80/4.5mcg - IH 1 puff BID MAGO Administration Clopidogrel Bisulfate 75 mg 01/14/17 10:00 01/16/17 09:44 Plavix - PO 75 mg DAILY MAGO Administration Heparin Sodium (Porcine) 5,000 unit 01/14/17 06:00 01/16/17 14:16 Heparin - SQ 5,000 unit TID MAGO Administration Dopamine HCl/Dextrose 250 mls @ 5.103 mls/hr 01/14/17 05:15 01/16/17 05:15 Dopamine 400 Mg/D5w - IVPB 5.103 mls/hr TITR MAGO Administration Protocol 2 MCG/KG/MIN Levothyroxine Sodium 75 mcg 01/14/17 07:00 01/16/17 06:13 Synthroid - PO 75 mcg DAILY@0700 MAGO Administration Metoclopramide HCl 10 mg 01/14/17 05:21 01/16/17 08:44 Reglan Injection - IVPB 10 mg Q6H PRN Administration NAUSEA AND/OR VOMITING Non-Formulary Medication 40 mg 01/14/17 22:00 Simvastatin PO HS MAGO Oxycodone HCl 10 mg 01/16/17 00:21 Roxicodone - PO Q6H PRN PAIN LEVEL 6-10 Oxycodone HCl 5 mg 01/16/17 00:21 Roxicodone - PO Q6H PRN PAIN LEVEL 1-5 Tiotropium [place] 1 puff 01/14/17 10:00 01/16/17 09:44 Spiriva - IH 1 inh DAILY MAGO Administration ASSESSMENT/PLAN: 81 year old woman with a history of HTN, HLD, CAD s/p CABG, AVR, Chronic combined systolic/diastolic CHF s/p AICD/PPM, severe LV systolic dysfunction s/ p Bi-V ICD, s/p aortic valve replacement, paralyzed L cosme-diaphragm, recurrent UTI's, who was admitted for UTI w/suspicion of urosepsis, and hypotension. Cardiac: Hypotension-Pt. with chronic hypotension, but with increased hypotension on admission from ED. - most likely 2/2 sepsis vs urosepsis - receiving Abx - Pt. currently Euvolemic Plan: -Taper off Dopamine 400 mg D5W - PRN small boluses of IVF ( IVF at 35 ) and monitor for fluid overload Chronic combined systolic/diastolic CHF, - h/o severe LV systolic dysfunction s/p Bi-V ICD Plan: -withhold anti-HTN meds for now due to hypotension. - IVF PRN -O2 to keep spO2>90% - Lasix PRN CAD s/p CABG and AVR -stable Plan: -withholding b-akin d/t hypotension -cont Plavix, ASA, Zocor. Ventricular tachycardia - Currently asymptomatic, -most likely exacerbated by dopamine, underlying CHF /CAD, and withholding beta akin - ICD in place Plan: - Taper off Dopamine Infectious Disease: Sepsis: Low suspicion for sepsis/E.coli bacteremia. Most likely 2/2 decompensated heart failure/cardiogenic shock. - Pt. arrived to ED with 3/4 SIRS criteria - WBC 14.7-->10.6 - absent lactic acidosis - Afebrile - Cx Negative - UA negative - CT AP depicts acute colonic diverticulosis, pericolonic fat stranding and wall thickening. Suggests diverticulitis vs diverticulosis. Plan: - D/C aztreonam, flagyl Endocrinology: Hypervolemic Hyponatremia: Stable - Pt edematous with low perfusion state - Na 126-->130 - Cr 1.8 (01/14) - Urine FeNa 10 Plan: - Daily CMP FEN: No IVF, Lytes PRN, Full liquid diet PPx: Heparin 5000 U Dispo: Monitor in ICU Visit type - Emergency Visit Emergency Visit: Yes ED Registration Date: 01/12/17 Care time: The patient presented to the Emergency Department on the above date and was hospitalized for further evaluation of their emergent condition. - New Patient This patient is new to me today: Yes Date on this admission: 01/16/17 - Critical Care Critical Care patient: Yes Total Critical Care Time (in minutes): 35 Critical Care Statement: The care of this patient involved high complexity decision making to prevent further life threatening deterioration of the patient 's condition and/or to evaluate & treat vital organ system(s) failure or risk of failure.
[2017-01-16] MEDS ORDERED: NITROGLYCERIN 25MG/D5W 250ML 250 ML IVPB ONE (15:28)
--- NOTE | 2017-01-16 16:59 | PN ---
Physical Exam: SUBJECTIVE: Patient seen and examined in the ICU. She reports feeling better today. OBJECTIVE: Weaning off dopamine drip BP 90s/60s Vital Signs Period Temp Pulse Resp BP Sys/Camilo Pulse Ox Last 24 Hr 97.0 F-98.1 F 101-121 15-30 91-107/46-75 94-100 GENERAL: The patient is awake, alert, and fully oriented, in no acute distress. HEAD: Normal with no signs of trauma. EYES: PERRL, extraocular movements intact, sclera anicteric, conjunctiva clear. No ptosis. ENT: Ears normal, nares patent, oropharynx clear without exudates, moist mucous membranes. NECK: Trachea midline, full range of motion, supple. LUNGS: Breath sounds equal, clear to auscultation bilaterally, no wheezes, no crackles, no accessory muscle use. HEART: Regular rate and rhythm ABDOMEN: Soft, nontender, nondistended, normoactive bowel sounds, no guarding, no rebound, no hepatosplenomegaly, no masses. EXTREMITIES: well-perfused, no edema. NEUROLOGICAL: Normal speech, gait not observed. PSYCH: Normal mood, normal affect. SKIN: Warm, dry, normal turgor, no rashes or lesions noted Laboratory Results - last 24 hr 01/16/17 01/16/17 05:00 05:00 WBC 10.6 H D RBC 4.18 Hgb 11.3 Hct 33.5 MCV 80.2 MCH 27.0 MCHC 33.7 RDW 15.5 Plt Count 324 MPV 8.6 Sodium 130 L Potassium 3.9 Chloride 85 L Carbon Dioxide 33 H Anion Gap 12 BUN 35 H Creatinine 0.8 Creat Clearance w eGFR > 60 Random Glucose 89 Calcium 8.4 L Phosphorus 2.7 Magnesium 2.4 Total Bilirubin 0.7 AST 70 H D ALT 21 Alkaline Phosphatase 102 Total Protein 6.1 L Albumin 2.4 L Active Medications Generic Name Dose Route Start Last Admin Trade Name Freq PRN Reason Stop Dose Admin Acetaminophen 650 mg 01/16/17 00:21 01/16/17 03:40 Tylenol - PO 650 mg Q6H PRN Administration PAIN Acetaminophen 325 mg 01/16/17 00:21 01/16/17 00:15 Tylenol - PO 325 mg Q6H PRN Administration PAIN Aspirin 81 mg 01/14/17 10:00 01/16/17 09:43 Asa - PO 81 mg DAILY MAGO Administration Budesonide/Formoterol Fumarate 1 puff 01/14/17 10:00 01/16/17 09:45 Symbicort 80/4.5mcg - IH 1 puff BID MAGO Administration Clopidogrel Bisulfate 75 mg 01/14/17 10:00 01/16/17 09:44 Plavix - PO 75 mg DAILY MAGO Administration Heparin Sodium (Porcine) 5,000 unit 01/14/17 06:00 01/16/17 14:16 Heparin - SQ 5,000 unit TID MAGO Administration Dopamine HCl/Dextrose 250 mls @ 5.103 mls/hr 01/14/17 05:15 01/16/17 05:15 Dopamine 400 Mg/D5w - IVPB 5.103 mls/hr TITR MAGO Administration Protocol 2 MCG/KG/MIN Levothyroxine Sodium 75 mcg 01/14/17 07:00 01/16/17 06:13 Synthroid - PO 75 mcg DAILY@0700 MAGO Administration Metoclopramide HCl 10 mg 01/14/17 05:21 01/16/17 15:39 Reglan Injection - IVPB 10 mg Q6H PRN Administration NAUSEA AND/OR VOMITING Non-Formulary Medication 40 mg 01/14/17 22:00 Simvastatin PO HS MAGO Oxycodone HCl 10 mg 01/16/17 00:21 Roxicodone - PO Q6H PRN PAIN LEVEL 6-10 Oxycodone HCl 5 mg 01/16/17 00:21 Roxicodone - PO Q6H PRN PAIN LEVEL 1-5 Tiotropium [place] 1 puff 01/14/17 10:00 01/16/17 09:44 Spiriva - IH 1 inh DAILY MAGO Administration ASSESSMENT/PLAN: Patient is an 81 year old female with a significant past medical history of recurrent UTIs, multiple drug allergies,HTN, HLD, CAD, systolic and diastolic heart failure s/p AICD/PPM, s/p aortic valve replacement, and hypothyroidism. She presented to the ER with dysuria, nausea and generalized weakness. Patient reports having painful urination radiating to her right flank which started last Monday. A UA done by her PCP was + for UTI and she was started on antibiotics. Patient reports no improvement since being on the antibiotics. Patient denies fever, chills, cough, SOB, CP, V/D, constipation. ID: Sepsis: SIRS, sepsis vs. cardiogenic shock UTI w/suspicion of urosepsis with hypotension. A/P: On admission: elevated WBC, tachycardic and hypotensive No lactic acidosis WBC 11>15>10.6, Remains hypotensive with dopamine infusion being weaned off Vanco, Aztreonam and Flagyl discontinued after blood and urine cultures were negative Monitor labs, vitals Cardiology: Acute on chronic systolic and diastolic heart failure s/p PPM A/P: Echo 11/07/16: LV function severely reduced, severe global hypokinesis, EF 29%; RV not well visualized Weaning off dopamine today, Monitor BP CAD, chronic A/P: On ASA 81mg daily, Plavix daily Hypertension A/P: Now with hypotension, monitor on tele Hyperlipidemia A/P: Continue home statin Renal: E.coli UTI A/P: UC negative, antibiotics stopped GI: Abdominal pain, resolved A/P: CTAP showed a possible mild but acute diverticulitis She denies any further abdominal pain, tolerating small meals Hypothyroidism A/P: continue levothyroxine Pulmonary: COPD, chronic A/P: not in acute exacerbation Monitor oxygen saturations, home inhalers F.E.N. Fluids: encourage PO Electrolytes: monitor BMP Nutrition: full liquids, advance as tolerated Prophylaxis: DVT: Heparin GI: Protonix Dispo: continues to require inpatient care. Full code.
[2017-01-16] MEDS ORDERED: PT OWN MED DRAWER 7, Y5N ONE (21:08)
[2017-01-16] MEDS: ROSUVASTATIN CA 10 MG TABLET (FP) PO SCH ×2 (21:21→21:23)
[2017-01-16] MEDS ORDERED: ACETAMINOPHEN 1000 MG/100 ML VIAL (NON FORMULARY) IVPB PRN (21:58)
[2017-01-17 06:09] LABS: BASOPHIL 0.4 % (0-2.0); EOSINOPHIL 3.4 % (0-4.5); MCH 27.1 pg (25.7-33.7); MCHC 33.5 g/dl (32.0-36.0); MEAN CELL VOLUME 80.8 fl (80-96); MEAN PLT VOLUME 8.9 fl (7.5-11.1); NEUTROPHILS 77.8 % (42.8-82.8); PLATELET COUNT 299 K/MM3 (134-434); RDW 15.4 % (11.6-15.6); WHITE BLOOD COUNT 10.7 K/mm3 (4.0-10.0)
[2017-01-17] MEDS: HEPARIN NA (PORCINE) 5,000 UNITS/ML 1ML VIAL SQ SCH ×3 (06:12→21:41)
[2017-01-17] MEDS: LEVOTHYROXINE NA 75 MCG TABLET (FP) PO SCH (06:12)
[2017-01-17 06:42] LABS: ALBUMIN 2.3 g/dl (3.4-5.0); ANION GAP 13 (8-16); CALCIUM 8.5 mg/dL (8.5-10.1); CO2 33 mmol/L (21-32); GLUCOSE,RANDOM 76 mg/dL (74-106); MAGNESIUM 2.6 mg/dL (1.8-2.4)
[2017-01-17 06:46] LABS: ALK PHOS 101 U/L (45-117); BILIRUBIN,TOTAL 0.5 mg/dL (0.2-1.0); CREATININE 0.6 mg/dL (0.55-1.02); PHOSPHOROUS 3.8 mg/dL (2.5-4.9); SGOT/AST 37 U/L (15-37); SGPT/ALT 16 U/L (12-78); TOT PROT 5.8 g/dl (6.4-8.2)
[2017-01-17] MEDS ORDERED: POTASSIUM CHLORIDE TABS 20 MEQ TABLET.ER (FP) PO ONE (08:36)
[2017-01-17] MEDS ORDERED: METOPROLOL TARTRATE 5 MG/5 ML VIAL IVPUSH ONE (08:50)
[2017-01-17] MEDS ORDERED: METOPROLOL TARTRATE 5 MG/5 ML VIAL ONE (08:54)
[2017-01-17] MEDS ORDERED: NAPH,MB-DB/K PH,MBDB POWDER PACKET PO ONE (08:57)
[2017-01-17] MEDS: ASPIRIN 81 MG CHEWABLE TABLETS PO SCH (09:04)
[2017-01-17] MEDS: CLOPIDOGREL BISULFATE 75 MG TABLET (FP) PO SCH (09:06)
[2017-01-17] MEDS: BUDESONIDE/FORMETEROL FUMARATE 80/4.5 mcg INHALER IH SCH ×2 (09:08→21:42)
[2017-01-17] MEDS ORDERED: PT OWN MED DRAWER 7, Y5N ONE ×3 (09:10→23:42)
[2017-01-17] MEDS: TIOTROPIUM BROMIDE 18 MCG/INH (DEVICE W/ 5 CAPSULES) IH SCH (09:10)
[2017-01-17] MEDS: METOCLOPRAMIDE HCL INJECTION 10 MG/2 ML VIAL IVPB PRN (09:25)
[2017-01-17] MEDS: ACETAMINOPHEN 325 MG TABLET (FP) PO PRN ×2 (09:38→21:40)
--- NOTE | 2017-01-17 10:57 | PN ---
Progress Note, Physician Chief Complaint: Pt A&Ox3; anxious, but no chest pain, palpitations, or dyspnea; no abdominal discomfort or dysuria. History of Present Illness: Ms. Hou is an 81 yo white woman with a significant past medical history of systolic CHF, CAD s/p [place]-->CABG, bioprosthetic AoVR, and ICD; HTN, hyperlipidemia, overweight, anxiety/depression, who presents with significant abdominal discomfort after trial of oral antibiotics for UTI. PCP called to alert of presentation to ER, ID consulted as patient has extensive allergies to medication. The patient denies chest pain, shortness of breath, headache and dizziness. Denies fever, chills, nausea, vomit, diarrhea and constipation. Reports her dysuria has decreased but is not gone, still has frequency and urgency. - Current Medication List Current Medications: Active Medications Acetaminophen (Tylenol -) 650 mg PO Q6H PRN PRN Reason: PAIN Last Admin: 01/17/17 09:38 Dose: 650 mg Acetaminophen (Tylenol -) 325 mg PO Q6H PRN PRN Reason: PAIN Last Admin: 01/16/17 00:15 Dose: 325 mg Acetaminophen (Ofirmev Injection -) 1,000 mg IVPB Q6H PRN PRN Reason: FEVER OR PAIN Stop: 01/17/17 15:59 Last Admin: 01/16/17 22:05 Dose: 1,000 mg Aspirin (Asa -) 81 mg PO DAILY [facility] Last Admin: 01/17/17 09:04 Dose: 81 mg Budesonide/Formoterol Fumarate (Symbicort 80/4.5mcg -) 1 puff IH BID [facility] Last Admin: 01/17/17 09:08 Dose: 1 puff Clopidogrel Bisulfate (Plavix -) 75 mg PO DAILY [facility] Last Admin: 01/17/17 09:06 Dose: 75 mg Heparin Sodium (Porcine) (Heparin -) 5,000 unit SQ TID [facility] Last Admin: 01/17/17 06:12 Dose: 5,000 unit Levothyroxine Sodium (Synthroid -) 75 mcg PO DAILY@0700 [facility] Last Admin: 01/17/17 06:12 Dose: 75 mcg Metoclopramide HCl (Reglan Injection -) 10 mg IVPB Q6H PRN PRN Reason: NAUSEA AND/OR VOMITING Last Admin: 01/17/17 09:25 Dose: 10 mg Oxycodone HCl (Roxicodone -) 10 mg PO Q6H PRN PRN Reason: PAIN LEVEL 6-10 Oxycodone HCl (Roxicodone -) 5 mg PO Q6H PRN PRN Reason: PAIN LEVEL 1-5 Rosuvastatin Calcium (Crestor -) 10 mg PO HS [facility] Last Admin: 01/16/17 21:23 Dose: Not Given Tiotropium [place] (Spiriva -) 1 puff IH DAILY [facility] Last Admin: 01/17/17 09:10 Dose: 1 inh - Objective Vital Signs: Vital Signs Temperature 98 F 01/17/17 10:00 Pulse Rate 98 H 01/17/17 10:00 Respiratory Rate 24 01/17/17 10:00 Blood Pressure 98/67 01/17/17 10:00 O2 Sat by Pulse Oximetry (%) 97 01/16/17 20:38 Constitutional: Yes: Well Nourished, Anxious Eyes: Yes: WNL HENT: Yes: WNL Neck: Yes: WNL Cardiovascular: Yes: S2 (split) Respiratory: Yes: Regular Gastrointestinal: Yes: Soft ...Rectal Exam: Yes: Deferred Genitourinary: No: Anuria Breast(s): Yes: WNL Musculoskeletal: Yes: Muscle Weakness Extremities: Yes: Cool Edema: Yes Edema: LLE: Trace, RLE: Trace Peripheral Pulses WNL: No Peripheral Pulses: Left Doralis Pedis: 1+, Right Dorsalis Pedis: 1+ Integumentary: Yes: WNL Neurological: Yes: Alert, Oriented Psychiatric: Yes: Alert, Oriented, Other (anxeity/depression) Labs: CBC, BMP 01/17/17 05:00 01/17/17 05:00 INR, PTT INR 1.12 (0.82-1.09) 01/12/17 15:45 - ....Imaging Chest X-ray: Image Reviewed (pulmonary congestion) Other: Image Reviewed (telemetry: AV pacing) Problem List - Problems (1) Anxiety 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 Code(s): F41.0 - PANIC DISORDER [EPISODIC PAROXYSMAL ANXIETY] (2) CAD (coronary artery disease) Code(s): I25.10 - ATHSCL HEART DISEASE OF [place] CORONARY ARTERY W/O ANG PCTRS (3) COPD bronchitis Code(s): J44.9 - CHRONIC OBSTRUCTIVE PULMONARY DISEASE, UNSPECIFIED (4) Diabetes Code(s): E11.9 - TYPE 2 DIABETES MELLITUS WITHOUT COMPLICATIONS (5) Hx of CABG Code(s): Z95.1 - PRESENCE OF AORTOCORONARY BYPASS GRAFT (6) Hyperlipidemia Code(s): E78.5 - HYPERLIPIDEMIA, UNSPECIFIED (7) Hypertension Code(s): I10 - ESSENTIAL (PRIMARY) HYPERTENSION (8) Hypothyroidism Code(s): E03.9 - HYPOTHYROIDISM, UNSPECIFIED (9) ICD (implantable cardioverter-defibrillator) in place Assessment/Plan: Pt reports no shocks. Code(s): Z95.810 - PRESENCE OF AUTOMATIC (IMPLANTABLE) CARDIAC DEFIBRILLATOR (10) Sleep apnea in adult Code(s): G47.33 - OBSTRUCTIVE SLEEP APNEA (ADULT) (PEDIATRIC) (11) Valvular heart disease Code(s): I38 - ENDOCARDITIS, VALVE UNSPECIFIED (12) Acute on chronic systolic and diastolic heart failure, NYHA class 4 Assessment/Plan: Now off dopamine (given for hypotension and transient anuria). Restart metoprolol (systolic CHF; PAF). Periods of hypotension and hyperkalemia make ACEI or Aldactone problematic; restart low-dose ACEI or ARB cautiously if BP and electrolytes allow when possible. Code(s): I50.43 - ACUTE ON CHRONIC COMBINED SYSTOLIC AND DIASTOLIC HRT FAIL (13) Aortic valve replaced Code(s): Z95.2 - PRESENCE OF PROSTHETIC HEART VALVE
--- NOTE | 2017-01-17 11:39 | PN ---
Physical Exam: SUBJECTIVE: 81 year old woman with a history of HTN, HLD, CAD s/p CABG, AVR, Chronic combined systolic/diastolic CHF s/p AICD/PPM, severe LV systolic dysfunction s/ p Bi-V ICD, s/p aortic valve replacement, paralyzed L cosme-diaphragm, recurrent UTI's, who was admitted for UTI and sepsis 2/2 decompensated heart failure and cardiogenic shock. Overnight patient experienced multiple episodes of atrial fibrillation w/ RVR. This AM patient currently in atrial fibrillation with rapid ventricular rate. Denies chest pain, palpitations, SOB, dizziness, lightheadedness. SBP 110's with MAP consistently over 65. Pt. on home dose 25 mg Metoprolol BID, but being withheld d/t borderline hypotension. Per phone encounter with Dr. Rouse ( cardiology), gave patient 5 mg IV Metoprolol Succinate with resolution of A- fib. Pt. currently up in chair eating. She denies nausea/vomiting, fevers/chills , cough. She is currently afebrile and hemodynamically stable since discontinuing 2 mcg/kg Dopamine (01/16). Also complains of shoulder and neck pain being treated with acetaminophen PO. OBJECTIVE: Vital Signs Period Temp Pulse Resp BP Sys/Camilo Pulse Ox Last 24 Hr 97.7 F-98.1 F 56-115 13-30 86-123/51-89 97-100 GENERAL: The patient is awake, alert, and fully oriented, in no acute distress. HEAD: Normal with no signs of trauma. EYES: PERRL, extraocular movements intact, sclera anicteric, conjunctiva clear. No ptosis. LUNGS: Breath sounds equal, clear to auscultation bilaterally, no wheezes, no crackles, no accessory muscle use. HEART: Regular rate and rhythm, S1, S2 without murmur, rub or gallop. ABDOMEN: Soft, nontender, nondistended, normoactive bowel sounds, no guarding, no rebound, no hepatosplenomegaly, no masses. EXTREMITIES: 2+ pulses, warm, well-perfused, no edema. PSYCH: Normal mood, normal affect. SKIN: Warm, dry, normal turgor, no rashes or lesions noted Laboratory Results - last 24 hr 01/17/17 01/17/17 05:00 05:00 WBC 10.7 H RBC 3.96 Hgb 10.7 Hct 32.0 L MCV 80.8 MCH 27.1 MCHC 33.5 RDW 15.4 Plt Count 299 MPV 8.9 Neutrophils % 77.8 Lymphocytes % 6.2 L Monocytes % 12.2 H Eosinophils % 3.4 Basophils % 0.4 Sodium 132 L Potassium 3.7 Chloride 86 L Carbon Dioxide 33 H Anion Gap 13 BUN 36 H Creatinine 0.6 D Creat Clearance w eGFR > 60 Random Glucose 76 Calcium 8.5 Phosphorus 3.8 D Magnesium 2.6 H Total Bilirubin 0.5 D AST 37 D ALT 16 D Alkaline Phosphatase 101 Total Protein 5.8 L Albumin 2.3 L Active Medications Generic Name Dose Route Start Last Admin Trade Name Freq PRN Reason Stop Dose Admin Acetaminophen 1,000 mg 01/16/17 21:58 01/16/17 22:05 Ofirmev Injection - IVPB 01/17/17 15:59 1,000 mg Q6H PRN Administration FEVER OR PAIN Acetaminophen 1,000 mg 01/17/17 11:36 Ofirmev Injection - IVPB 01/17/17 11:37 ONCE ONE Aspirin 81 mg 01/14/17 10:00 01/17/17 09:04 Asa - PO 81 mg DAILY MAGO Administration Budesonide/Formoterol Fumarate 1 puff 01/14/17 10:00 01/17/17 09:08 Symbicort 80/4.5mcg - IH 1 puff BID MAGO Administration Clopidogrel Bisulfate 75 mg 01/14/17 10:00 01/17/17 09:06 Plavix - PO 75 mg DAILY MAGO Administration Heparin Sodium (Porcine) 5,000 unit 01/14/17 06:00 01/17/17 06:12 Heparin - SQ 5,000 unit TID MAGO Administration Levothyroxine Sodium 75 mcg 01/14/17 07:00 01/17/17 06:12 Synthroid - PO 75 mcg DAILY@0700 [facility]O Administration Metoclopramide HCl 10 mg 01/14/17 05:21 01/17/17 09:25 Reglan Injection - IVPB 10 mg Q6H PRN Administration NAUSEA AND/OR VOMITING Metoprolol Succinate 25 mg 01/17/17 22:00 Toprol Xl - PO BID [facility] Metoprolol Tartrate 12.5 mg 01/17/17 12:00 Lopressor - PO BID MAGO Oxycodone HCl 10 mg 01/16/17 00:21 Roxicodone - PO Q6H PRN PAIN LEVEL 6-10 Oxycodone HCl 5 mg 01/16/17 00:21 Roxicodone - PO Q6H PRN PAIN LEVEL 1-5 Rosuvastatin Calcium 10 mg 01/16/17 22:00 01/16/17 21:23 Crestor - PO Not Given HS [facility] Tiotropium [place] 1 puff 01/14/17 10:00 01/17/17 09:10 Spiriva - IH 1 inh DAILY [facility] Administration ASSESSMENT/PLAN: 81 year old woman with a history of HTN, HLD, CAD s/p CABG, AVR, Chronic combined systolic/diastolic CHF s/p AICD/PPM, severe LV systolic dysfunction s/ p Bi-V ICD, s/p aortic valve replacement, paralyzed L cosme-diaphragm, recurrent UTI's, who was admitted for UTI sepsis 2/2 decompensated heart failure and cardiogenic shock. Cardiac: A-fib with RvR: - Mutliple runs of A-fib (01/17) treated with 5 mg IV Metoprolol tartrate - Patient asymptomatic without palpitations, SOB, dizziness, lightheadedness, chest pain. - Home regimen of 25 mg Metoprolol Succinate BID. Plan: - 12.5 mg PO Metoprolol Tartrate BID Per Cardiology Hypotension-Pt. with chronic hypotension, but with increased hypotension on admission from ED. - most likely 2/2 sepsis in setting of decompensated heart failure (cardiogenic shock) - receiving Abx - Pt. currently Euvolemic - D/c'd Dopamine 400 mg D5W (01/16) Plan: - PRN small boluses of IVF ( IVF at 35 ) and monitor for fluid overload Chronic combined systolic/diastolic CHF, - h/o severe LV systolic dysfunction s/p Bi-V ICD Plan: -withhold anti-HTN meds for now due to hypotension. - IVF PRN -O2 to keep spO2>90% - Lasix PRN CAD s/p CABG and AVR -stable Plan: -withholding b-akin d/t hypotension -cont Plavix, ASA, Zocor. Ventricular tachycardia - Currently asymptomatic, -most likely exacerbated by dopamine, underlying CHF /CAD, and withholding beta akin - ICD in place G.I.: - Abdominal pain and diahreea that has resolved since admission. - CT AP revealed possible acute diverticulitis - Currently asymtpomatic and denies abdominal pain,while tolerating PO intake. Infectious Disease: Sepsis: Low suspicion for sepsis/E.coli bacteremia. Most likely 2/2 decompensated heart failure/cardiogenic shock. - Pt. arrived to ED with 3/4 SIRS criteria - WBC 14.7-->10.6 - absent lactic acidosis - Afebrile - Urine and blood Cx Negative. - Flagyl, Vanco, and Aztreonam were d/c'd after negative cultures. - UA negative - CT AP depicts acute colonic diverticulosis, pericolonic fat stranding and wall thickening. Suggests diverticulitis vs diverticulosis. Plan: - Monitor labs, vitals Endocrinology: Hypervolemic Hyponatremia: Stable - Pt edematous with low perfusion state - Na 126-->130 - Cr 1.8 (01/14) - Urine FeNa 10 Plan: - Daily CMP Hypothyroidism - Cont. Levothyroxine FEN: No IVF, Lytes PRN, Full liquid diet PPx: Heparin 5000 U Dispo: Monitor in ICU Visit type - Emergency Visit Emergency Visit: Yes ED Registration Date: 01/12/17 Care time: The patient presented to the Emergency Department on the above date and was hospitalized for further evaluation of their emergent condition. - New Patient This patient is new to me today: No - Critical Care Critical Care patient: Yes Total Critical Care Time (in minutes): 35 Critical Care Statement: The care of this patient involved high complexity decision making to prevent further life threatening deterioration of the patient 's condition and/or to evaluate & treat vital organ system(s) failure or risk of failure.
--- NOTE | 2017-01-17 12:17 | PN ---
Teaching Attending Note Name of Resident: Mario Mayes ATTENDING PHYSICIAN STATEMENT I saw and evaluated the patient. I reviewed the resident's note and discussed the case with the resident. I agree with the resident's findings and plan as documented. SUBJECTIVE: Pt seen and examined in the ICU. Denies shortness of breath or chest pain. Remains off dopamine gtt. OBJECTIVE: Last Vital Signs Temp Pulse Resp BP Pulse Ox 98 F 96 H 24 93/62 97 01/17/17 10:00 01/17/17 12:00 01/17/17 12:00 01/17/17 12:00 01/16/17 20:38 Intake & Output 01/14/17 01/15/17 01/16/17 01/17/17 23:59 23:59 23:59 23:59 Intake Total 1361.2 1358.5 1090.4 120 Output Total 260 321 4753 800 Balance 411.2 558.5 90.4 -680 Weight 150 lb 150 lb 6.4 oz 150 lb 3.2 oz 150 lb 9.6 oz Gen: less tachypneic Heart: tachycardic, regular Lung: decreased breath sounds at the bases Abd: soft, nontender Ext: no edema CBC, BMP 01/17/17 05:00 01/17/17 05:00 Active Medications Acetaminophen (Ofirmev Injection -) 1,000 mg IVPB Q6H PRN PRN Reason: FEVER OR PAIN Stop: 01/17/17 15:59 Last Admin: 01/16/17 22:05 Dose: 1,000 mg Acetaminophen (Ofirmev Injection -) 1,000 mg IVPB ONCE ONE Stop: 01/17/17 11:37 Aspirin (Asa -) 81 mg PO DAILY [facility] Last Admin: 01/17/17 09:04 Dose: 81 mg Budesonide/Formoterol Fumarate (Symbicort 80/4.5mcg -) 1 puff IH BID [facility] Last Admin: 01/17/17 09:08 Dose: 1 puff Clopidogrel Bisulfate (Plavix -) 75 mg PO DAILY [facility] Last Admin: 01/17/17 09:06 Dose: 75 mg Heparin Sodium (Porcine) (Heparin -) 5,000 unit SQ TID [facility] Last Admin: 01/17/17 06:12 Dose: 5,000 unit Levothyroxine Sodium (Synthroid -) 75 mcg PO DAILY@0700 [facility] Last Admin: 01/17/17 06:12 Dose: 75 mcg Metoclopramide HCl (Reglan Injection -) 10 mg IVPB Q6H PRN PRN Reason: NAUSEA AND/OR VOMITING Last Admin: 01/17/17 09:25 Dose: 10 mg Metoprolol Tartrate (Lopressor -) 12.5 mg PO BID [facility] Oxycodone HCl (Roxicodone -) 10 mg PO Q6H PRN PRN Reason: PAIN LEVEL 6-10 Oxycodone HCl (Roxicodone -) 5 mg PO Q6H PRN PRN Reason: PAIN LEVEL 1-5 Rosuvastatin Calcium (Crestor -) 10 mg PO HS [facility] Last Admin: 01/16/17 21:23 Dose: Not Given Tiotropium [place] (Spiriva -) 1 puff IH DAILY [facility] Last Admin: 01/17/17 09:10 Dose: 1 inh ASSESSMENT AND PLAN: UTI Septic vs Cardiogenic Shock improving Severe LV Systolic Dysfunction s/p Bi-V ICD Atrial Fibrillation Mitral Regurgitation Pulmonary HTN s/p AVR CAD COPD Hyponatremia Hypothyroidism - lasix as needed - rate control - ASA, plavix - O2 to keep Spo2 >90% - antibiotics completed - inhaled bronchodilators - PO as tolerated - DVT prophylaxis - can monitor on telemetry
[2017-01-17] MEDS: METOPROLOL TARTRATE 25 MG TABLET (FP) PO SCH ×2 (13:14→21:41)
[2017-01-17] MEDS ORDERED: ACETAMINOPHEN 1000 MG/100 ML VIAL (NON FORMULARY) IVPB ONE (13:15)
--- NOTE | 2017-01-17 16:03 | PN ---
Progress Note, Physician History of Present Illness: Pt seen and examined at bedside. She is awake and alert. She says she is starting to feel better. - Current Medication List Current Medications: Active Medications Alprazolam (Xanax -) 0.25 mg PO Q8H PRN PRN Reason: ANXIETY Aspirin (Asa -) 81 mg PO DAILY [facility] Last Admin: 01/17/17 09:04 Dose: 81 mg Budesonide/Formoterol Fumarate (Symbicort 80/4.5mcg -) 1 puff IH BID [facility] Last Admin: 01/17/17 09:08 Dose: 1 puff Clopidogrel Bisulfate (Plavix -) 75 mg PO DAILY [facility] Last Admin: 01/17/17 09:06 Dose: 75 mg Heparin Sodium (Porcine) (Heparin -) 5,000 unit SQ TID [facility] Last Admin: 01/17/17 13:15 Dose: 5,000 unit Levothyroxine Sodium (Synthroid -) 75 mcg PO DAILY@0700 [facility] Last Admin: 01/17/17 06:12 Dose: 75 mcg Lidocaine (Lidoderm Patch -) 1 patch TP DAILY [facility] Metoclopramide HCl (Reglan Injection -) 10 mg IVPB Q6H PRN PRN Reason: NAUSEA AND/OR VOMITING Last Admin: 01/17/17 09:25 Dose: 10 mg Metoprolol Tartrate (Lopressor -) 12.5 mg PO BID [facility] Last Admin: 01/17/17 13:14 Dose: 12.5 mg Miscellaneous (Lidoderm Patch Removal) 1 each MC DAILY@2200 [facility] Oxycodone HCl (Roxicodone -) 10 mg PO Q6H PRN PRN Reason: PAIN LEVEL 6-10 Oxycodone HCl (Roxicodone -) 5 mg PO Q6H PRN PRN Reason: PAIN LEVEL 1-5 Rosuvastatin Calcium (Crestor -) 10 mg PO HS [facility] Last Admin: 01/16/17 21:23 Dose: Not Given Tiotropium [place] (Spiriva -) 1 puff IH DAILY [facility] Last Admin: 01/17/17 09:10 Dose: 1 inh - Objective Vital Signs: Vital Signs Temperature 97.7 F 01/17/17 14:00 Pulse Rate 96 H 01/17/17 14:00 Respiratory Rate 24 01/17/17 14:00 Blood Pressure 106/74 01/17/17 14:00 O2 Sat by Pulse Oximetry (%) 100 01/17/17 12:49 Constitutional: Yes: Calm Eyes: Yes: Conjunctiva Clear HENT: Yes: Atraumatic Neck: Yes: Supple Cardiovascular: Yes: S1, S2 Respiratory: Yes: On Nasal O2 Gastrointestinal: Yes: Soft Genitourinary: Yes: [place] Present Musculoskeletal: Yes: WNL Edema: No Neurological: Yes: Oriented Psychiatric: Yes: Oriented Labs: CBC, BMP 01/17/17 05:00 01/17/17 05:00 INR, PTT INR 1.12 (0.82-1.09) 01/12/17 15:45 Problem List - Problems (1) Hypokalemia Code(s): E87.6 - HYPOKALEMIA (2) Hyponatremia Code(s): E87.1 - HYPO-OSMOLALITY AND HYPONATREMIA (3) UTI (urinary tract infection) Code(s): N39.0 - URINARY TRACT INFECTION, SITE NOT SPECIFIED Qualifiers: Urinary tract infection type: site unspecified Hematuria presence: without hematuria Qualified Code(s): N39.0 - Urinary tract infection, site not specified; N39.0 - Urinary tract infection, site not specified; R31.9 - Hematuria, unspecified; R31.9 - Hematuria, unspecified (4) Acute on chronic systolic CHF (congestive heart failure) Code(s): I50.23 - ACUTE ON CHRONIC SYSTOLIC (CONGESTIVE) HEART FAILURE (5) COPD (chronic obstructive pulmonary disease) Code(s): J44.9 - CHRONIC OBSTRUCTIVE PULMONARY DISEASE, UNSPECIFIED Assessment/Plan Current Medications Generic Name Dose Route Start Last Admin Trade Name Freq PRN Reason Stop Dose Admin Alprazolam 0.25 mg 01/17/17 14:08 Xanax - PO Q8H PRN ANXIETY Aspirin 81 mg 01/14/17 10:00 01/17/17 09:04 Asa - PO 81 mg DAILY [facility] Administration Budesonide/Formoterol Fumarate 1 puff 01/14/17 10:00 01/17/17 09:08 Symbicort 80/4.5mcg - IH 1 puff BID [facility] Administration Clopidogrel Bisulfate 75 mg 01/14/17 10:00 01/17/17 09:06 Plavix - PO 75 mg DAILY [facility] Administration Heparin Sodium (Porcine) 5,000 unit 01/14/17 06:00 01/17/17 13:15 Heparin - SQ 5,000 unit TID [facility] Administration Levothyroxine Sodium 75 mcg 01/14/17 07:00 01/17/17 06:12 Synthroid - PO 75 mcg DAILY@0700 [facility] Administration Lidocaine 1 patch 01/18/17 10:00 Lidoderm Patch - TP DAILY [facility] Metoclopramide HCl 10 mg 01/14/17 05:21 01/17/17 09:25 Reglan Injection - IVPB 10 mg Q6H PRN Administration NAUSEA AND/OR VOMITING Metoprolol Tartrate 12.5 mg 01/17/17 13:15 01/17/17 13:14 Lopressor - PO 12.5 mg BID [facility] Administration Miscellaneous 1 each 01/17/17 22:00 Lidoderm Patch Removal MC DAILY@2200 [facility] Oxycodone HCl 10 mg 01/16/17 00:21 Roxicodone - PO Q6H PRN PAIN LEVEL 6-10 Oxycodone HCl 5 mg 01/16/17 00:21 Roxicodone - PO Q6H PRN PAIN LEVEL 1-5 Rosuvastatin Calcium 10 mg 01/16/17 22:00 01/16/17 21:23 Crestor - PO Not Given HS [facility] Tiotropium [place] 1 puff 01/14/17 10:00 01/17/17 09:10 Spiriva - IH 1 inh DAILY [facility] Administration 1. UTI 2. hyponatremia 3. paralyzed hemidiaphragm 4. HTN 5. valvular heart disease 6. azotemia 7. hypothyroid 8. CAD 9. hypokalemia 10. alkalosis Plan - pt is now off of dopamine - sodium is improving - encourage PO intake - will hold off fluids - diuretics on hold - will follow Dr Bella
[2017-01-17] MEDS: LIDOCAINE 5% TOPICAL PATCH TP SCH (16:43)
[2017-01-17] MEDS: ALPRAZolam 0.25 MG TABLET PO PRN (16:46)
--- NOTE | 2017-01-17 18:22 | PN ---
Physical Exam: SUBJECTIVE: Patient seen and examined at the bedside. Her son and daughter in attendance. OBJECTIVE: BP remains low 80s/40s, now off dopamine drip Vital Signs Period Temp Pulse Resp BP Sys/Camilo Pulse Ox Last 24 Hr 97.7 F-98.0 F 56-115 15-27 93-123/57-89 97-100 GENERAL: The patient is awake, alert, and fully oriented, in no acute distress. HEAD: Normal with no signs of trauma. EYES: PERRL, extraocular movements intact, sclera anicteric, conjunctiva clear. No ptosis. ENT: Ears normal, nares patent, oropharynx clear without exudates, moist mucous membranes. NECK: Trachea midline, full range of motion, supple. LUNGS: Breath sounds equal, clear to auscultation bilaterally, no wheezes, no crackles, no accessory muscle use. HEART: Regular rate and rhythm ABDOMEN: Soft, nontender, nondistended, normoactive bowel sounds, no guarding, no rebound, no hepatosplenomegaly, no masses. EXTREMITIES: well-perfused, no edema. NEUROLOGICAL: Normal speech, gait not observed. PSYCH: Normal mood, normal affect. SKIN: Warm, dry, normal turgor, no rashes or lesions noted Laboratory Results - last 24 hr 01/17/17 01/17/17 05:00 05:00 WBC 10.7 H RBC 3.96 Hgb 10.7 Hct 32.0 L MCV 80.8 MCH 27.1 MCHC 33.5 RDW 15.4 Plt Count 299 MPV 8.9 Neutrophils % 77.8 Lymphocytes % 6.2 L Monocytes % 12.2 H Eosinophils % 3.4 Basophils % 0.4 Sodium 132 L Potassium 3.7 Chloride 86 L Carbon Dioxide 33 H Anion Gap 13 BUN 36 H Creatinine 0.6 D Creat Clearance w eGFR > 60 Random Glucose 76 Calcium 8.5 Phosphorus 3.8 D Magnesium 2.6 H Total Bilirubin 0.5 D AST 37 D ALT 16 D Alkaline Phosphatase 101 Total Protein 5.8 L Albumin 2.3 L Active Medications Generic Name Dose Route Start Last Admin Trade Name Freq PRN Reason Stop Dose Admin Alprazolam 0.25 mg 01/17/17 14:08 01/17/17 16:46 Xanax - PO 0.25 mg Q8H PRN Administration ANXIETY Aspirin 81 mg 01/14/17 10:00 01/17/17 09:04 Asa - PO 81 mg DAILY [facility] Administration Budesonide/Formoterol Fumarate 1 puff 01/14/17 10:00 01/17/17 09:08 Symbicort 80/4.5mcg - IH 1 puff BID [facility] Administration Clopidogrel Bisulfate 75 mg 01/14/17 10:00 01/17/17 09:06 Plavix - PO 75 mg DAILY [facility] Administration Heparin Sodium (Porcine) 5,000 unit 01/14/17 06:00 01/17/17 13:15 Heparin - SQ 5,000 unit TID [facility] Administration Levothyroxine Sodium 75 mcg 01/14/17 07:00 01/17/17 06:12 Synthroid - PO 75 mcg DAILY@0700 [facility] Administration Lidocaine 1 patch 01/17/17 16:30 01/17/17 16:43 Lidoderm Patch - TP 1 patch DAILY [facility] Administration Metoclopramide HCl 10 mg 01/14/17 05:21 01/17/17 09:25 Reglan Injection - IVPB 10 mg Q6H PRN Administration NAUSEA AND/OR VOMITING Metoprolol Tartrate 12.5 mg 01/17/17 13:15 01/17/17 13:14 Lopressor - PO 12.5 mg BID [facility] Administration Miscellaneous 1 each 01/17/17 22:00 Lidoderm Patch Removal MC DAILY@2200 [facility] Oxycodone HCl 10 mg 01/16/17 00:21 Roxicodone - PO Q6H PRN PAIN LEVEL 6-10 Oxycodone HCl 5 mg 01/16/17 00:21 Roxicodone - PO Q6H PRN PAIN LEVEL 1-5 Rosuvastatin Calcium 10 mg 01/16/17 22:00 01/16/17 21:23 Crestor - PO Not Given HS [facility] Tiotropium [place] 1 puff 01/14/17 10:00 01/17/17 09:10 Spiriva - IH 1 inh DAILY [facility] Administration ASSESSMENT/PLAN: Patient is an 81 year old female with a significant past medical history of recurrent UTIs, multiple drug allergies,HTN, HLD, CAD, systolic and diastolic heart failure s/p AICD/PPM, s/p aortic valve replacement, and hypothyroidism. She presented to the ER with dysuria, nausea and generalized weakness. Patient reports having painful urination radiating to her right flank which started last Monday. A UA done by her PCP was + for UTI and she was started on antibiotics. Patient reports no improvement since being on the antibiotics. Patient denies fever, chills, cough, SOB, CP, V/D, constipation. ID: Sepsis: SIRS, sepsis vs. cardiogenic shock UTI w/suspicion of urosepsis with hypotension. A/P: On admission: elevated WBC, tachycardic and hypotensive No lactic acidosis WBC 11>15>10.7, Remains hypotensive, now off dopamine gtt Vanco, Aztreonam and Flagyl discontinued after blood and urine cultures were negative Monitor labs, vitals Cardiology: Acute on chronic systolic and diastolic heart failure s/p PPM A/P: Echo 11/07/16: LV function severely reduced, severe global hypokinesis, EF 29%; RV not well visualized Off dopamine, Monitor BP, now on Lopressor 12.5mg PO BID CAD, chronic A/P: On ASA 81mg daily, Plavix daily Hypertension A/P: Now with hypotension, monitor on tele Hyperlipidemia A/P: Continue home statin Renal: E.coli UTI A/P: UC negative, antibiotics stopped Electrolytes Hyponatremia @132, improving A/P: Off IV fluids, tolerating PO Encourage PO intake, diuretics on hold Renal following GI: Abdominal pain, resolved A/P: CTAP showed a possible mild but acute diverticulitis She denies any further abdominal pain, tolerating small meals Hypothyroidism A/P: continue levothyroxine Pulmonary: COPD, chronic A/P: not in acute exacerbation Monitor oxygen saturations, home inhalers F.E.N. Fluids: encourage PO Electrolytes: hyponatremia slowly improving, off iv fluids, encourage PO intake Nutrition: full liquids, advance as tolerated Prophylaxis: DVT: Heparin GI: Protonix Dispo: continues to require inpatient care. Full code. Visit type - Emergency Visit Emergency Visit: Yes ED Registration Date: 01/12/17 Care time: The patient presented to the Emergency Department on the above date and was hospitalized for further evaluation of their emergent condition. - New Patient This patient is new to me today: No - Critical Care Critical Care patient: Yes Total Critical Care Time (in minutes): 60 Critical Care Statement: The care of this patient involved high complexity decision making to prevent further life threatening deterioration of the patient 's condition and/or to evaluate & treat vital organ system(s) failure or risk of failure. - Discharge Referral Referred to [facility] Med [facility].C.: No
[2017-01-17] MEDS: LIDOCAINE PATCH REMOVAL MC SCH (21:46)
[2017-01-17] MEDS ORDERED: LIDOCAINE PATCH REMOVAL MC SCH (22:00)
[2017-01-17] MEDS ORDERED: METOPROLOL SUCCINATE 25 MG TAB.SR.24H (FP) PO SCH (22:00)
[2017-01-17] MEDS ORDERED: SIMVASTATIN PO SCH ×2 (22:00)
[2017-01-18] MEDS: ALPRAZolam 0.25 MG TABLET PO PRN ×2 (00:49→13:38)
[2017-01-18] MEDS: LIDOCAINE PATCH REMOVAL MC SCH ×2 (00:49→21:11)
[2017-01-18] MEDS: ACETAMINOPHEN 325 MG TABLET (FP) PO PRN ×2 (05:56→13:27)
[2017-01-18] MEDS: HEPARIN NA (PORCINE) 5,000 UNITS/ML 1ML VIAL SQ SCH ×3 (05:56→21:10)
[2017-01-18] MEDS: LEVOTHYROXINE NA 75 MCG TABLET (FP) PO SCH (06:00)
[2017-01-18 06:15] LABS: BASOPHIL 0.4 % (0-2.0); EOSINOPHIL 2.6 % (0-4.5); MCH 26.9 pg (25.7-33.7); MCHC 33.3 g/dl (32.0-36.0); MEAN PLT VOLUME 8.9 fl (7.5-11.1); NEUTROPHILS 77.4 % (42.8-82.8); PLATELET COUNT 349 K/MM3 (134-434); RDW 15.2 % (11.6-15.6); WHITE BLOOD COUNT 10.4 K/mm3 (4.0-10.0)
[2017-01-18 06:57] LABS: ALBUMIN 2.4 g/dl (3.4-5.0); ALK PHOS 132 U/L (45-117); ANION GAP 9 (8-16); BILIRUBIN,TOTAL 0.6 mg/dL (0.2-1.0); CALCIUM 8.9 mg/dL (8.5-10.1); CO2 35 mmol/L (21-32); CREATININE 0.8 mg/dL (0.55-1.02); GLUCOSE,RANDOM 79 mg/dL (74-106); MAGNESIUM 2.8 mg/dL (1.8-2.4); SGOT/AST 270 U/L (15-37); SGPT/ALT 137 U/L (12-78); TOT PROT 5.9 g/dl (6.4-8.2)
[2017-01-18] MEDS ORDERED: PT OWN MED DRAWER 7, Y5N ONE ×2 (08:19→21:19)
[2017-01-18] MEDS: LIDOCAINE 5% TOPICAL PATCH TP SCH (09:01)
[2017-01-18] MEDS: CLOPIDOGREL BISULFATE 75 MG TABLET (FP) PO SCH (09:02)
[2017-01-18] MEDS: ASPIRIN 81 MG CHEWABLE TABLETS PO SCH (09:02)
[2017-01-18] MEDS: METOPROLOL TARTRATE 25 MG TABLET (FP) PO SCH ×2 (09:02→21:10)
[2017-01-18] MEDS: TIOTROPIUM BROMIDE 18 MCG/INH (DEVICE W/ 5 CAPSULES) IH SCH (09:02)
[2017-01-18] MEDS: BUDESONIDE/FORMETEROL FUMARATE 80/4.5 mcg INHALER IH SCH ×2 (09:04→21:10)
[2017-01-18] MEDS ORDERED: LIDOCAINE 5% TOPICAL PATCH TP SCH (10:00)
--- NOTE | 2017-01-18 11:58 | PN ---
Progress Note, Physician History of Present Illness: 81 year old woman with a history of HTN, HLD, CAD s/p CABG, AVR, Chronic combined systolic/diastolic CHF, severe LV systolic dysfunction s/p Bi-V ICD, paralyzed L cosme-diaphragm, admitted for nausea, vomiting, abdominal pain, UTI possible urosepsis, hypotension. - Current Medication List Current Medications: Active Medications Acetaminophen (Tylenol -) 650 mg PO Q6H PRN PRN Reason: FEVER OR PAIN Last Admin: 01/18/17 05:56 Dose: 650 mg Alprazolam (Xanax -) 0.25 mg PO Q8H PRN PRN Reason: ANXIETY Last Admin: 01/18/17 00:49 Dose: 0.25 mg Aspirin (Asa -) 81 mg PO DAILY [facility] Last Admin: 01/18/17 09:02 Dose: 81 mg Budesonide/Formoterol Fumarate (Symbicort 80/4.5mcg -) 1 puff IH BID [facility] Last Admin: 01/18/17 09:04 Dose: 1 puff Clopidogrel Bisulfate (Plavix -) 75 mg PO DAILY [facility] Last Admin: 01/18/17 09:02 Dose: 75 mg Heparin Sodium (Porcine) (Heparin -) 5,000 unit SQ TID [facility] Last Admin: 01/18/17 05:56 Dose: 5,000 unit Levothyroxine Sodium (Synthroid -) 75 mcg PO DAILY@0700 [facility] Last Admin: 01/18/17 06:00 Dose: 75 mcg Lidocaine (Lidoderm Patch -) 1 patch TP DAILY [facility] Last Admin: 01/18/17 09:01 Dose: 1 patch Metoclopramide HCl (Reglan Injection -) 10 mg IVPB Q6H PRN PRN Reason: NAUSEA AND/OR VOMITING Last Admin: 01/17/17 09:25 Dose: 10 mg Metoprolol Tartrate (Lopressor -) 12.5 mg PO BID [facility] Last Admin: 01/18/17 09:02 Dose: 12.5 mg Miscellaneous (Lidoderm Patch Removal) 1 each MC DAILY@2200 [facility] Last Admin: 01/18/17 00:49 Dose: 1 each Zocor-Patient's Own Medication (N/F) Zocor 1 each PO HS [facility] Last Admin: 01/17/17 23:38 Dose: 1 each Oxycodone HCl (Roxicodone -) 10 mg PO Q6H PRN PRN Reason: PAIN LEVEL 6-10 Oxycodone HCl (Roxicodone -) 5 mg PO Q6H PRN PRN Reason: PAIN LEVEL 1-5 Tiotropium [place] (Spiriva -) 1 puff IH DAILY [facility] Last Admin: 01/18/17 09:02 Dose: 1 inh - Objective Vital Signs: Vital Signs Temperature 97.7 F 01/18/17 10:10 Pulse Rate 90 01/18/17 10:10 Respiratory Rate 22 01/18/17 10:10 Blood Pressure 94/53 01/18/17 10:10 O2 Sat by Pulse Oximetry (%) 98 01/17/17 21:00 Eyes: Yes: WNL, Conjunctiva Clear, EOM Intact HENT: Yes: WNL, Atraumatic, Normocephalic Neck: Yes: WNL, Supple, Trachea Midline Cardiovascular: Yes: WNL, Regular Rate and Rhythm Respiratory: Yes: WNL, Regular, CTA Bilaterally Gastrointestinal: Yes: WNL, Normal Bowel Sounds Genitourinary: Yes: WNL Musculoskeletal: Yes: WNL Extremities: Yes: WNL Edema: No Integumentary: Yes: WNL Neurological: Yes: WNL, Alert, Oriented ...Motor Strength: WNL Psychiatric: Yes: WNL Labs: CBC, BMP 01/18/17 05:00 01/18/17 05:00 INR, PTT INR 1.12 (0.82-1.09) 01/12/17 15:45 Problem List - Problems (1) DVT prophylaxis Code(s): [id number] - (2) Hypokalemia Code(s): E87.6 - HYPOKALEMIA (3) Hyponatremia Code(s): E87.1 - HYPO-OSMOLALITY AND HYPONATREMIA (4) UTI (urinary tract infection) Code(s): N39.0 - URINARY TRACT INFECTION, SITE NOT SPECIFIED Qualifiers: Urinary tract infection type: site unspecified Hematuria presence: without hematuria Qualified Code(s): N39.0 - Urinary tract infection, site not specified; N39.0 - Urinary tract infection, site not specified; R31.9 - Hematuria, unspecified; R31.9 - Hematuria, unspecified (5) Acute on chronic systolic CHF (congestive heart failure) Code(s): I50.23 - ACUTE ON CHRONIC SYSTOLIC (CONGESTIVE) HEART FAILURE (6) CHF NYHA class III Code(s): I50.9 - HEART FAILURE, UNSPECIFIED (7) CHF exacerbation Code(s): I50.9 - HEART FAILURE, UNSPECIFIED Qualifiers: Congestive heart failure type: unspecified congestive heart failure type Qualified Code(s): I50.9 - Heart failure, unspecified; I50.9 - Heart failure , unspecified; I50.9 - Heart failure, unspecified; I50.9 - Heart failure, unspecified (8) COPD (chronic obstructive pulmonary disease) Code(s): J44.9 - CHRONIC OBSTRUCTIVE PULMONARY DISEASE, UNSPECIFIED (9) Chronic hypoxemic respiratory failure Code(s): J96.11 - CHRONIC RESPIRATORY FAILURE WITH HYPOXIA (10) Diaphragm paralysis Code(s): J98.6 - DISORDERS OF DIAPHRAGM (11) Leukocytosis Code(s): D72.829 - ELEVATED WHITE BLOOD CELL COUNT, UNSPECIFIED (12) Nonsustained ventricular tachycardia Code(s): I47.2 - VENTRICULAR TACHYCARDIA (13) Respiratory failure Code(s): J96.90 - RESPIRATORY FAILURE, UNSP, UNSP W HYPOXIA OR HYPERCAPNIA (14) Shortness of breath Code(s): R06.02 - SHORTNESS OF BREATH (15) Systolic and diastolic CHF w/reduced LV function, NYHA class 4 Code(s): I50.40 - UNSP COMBINED SYSTOLIC AND DIASTOLIC (CONGESTIVE) HRT FAIL (16) Anxiety Code(s): F41.9 - ANXIETY DISORDER, UNSPECIFIED (17) Anxiety 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 Code(s): F41.0 - PANIC DISORDER [EPISODIC PAROXYSMAL ANXIETY] (18) Aortic valve replaced Code(s): Z95.2 - PRESENCE OF PROSTHETIC HEART VALVE (19) CAD (coronary artery disease) Code(s): I25.10 - ATHSCL HEART DISEASE OF [place] CORONARY ARTERY W/O ANG PCTRS (20) CHF (congestive heart failure) Code(s): I50.9 - HEART FAILURE, UNSPECIFIED Qualifiers: Congestive heart failure type: unspecified congestive heart failure type Congestive heart failure chronicity: unspecified congestive heart failure chronicity Qualified Code(s): I50.9 - Heart failure, unspecified; I50.9 - Heart failure, unspecified; I50.9 - Heart failure, unspecified; I50.9 - Heart failure, unspecified (21) COPD bronchitis Code(s): J44.9 - CHRONIC OBSTRUCTIVE PULMONARY DISEASE, UNSPECIFIED (22) Diabetes Code(s): E11.9 - TYPE 2 DIABETES MELLITUS WITHOUT COMPLICATIONS (23) Hx of CABG Code(s): Z95.1 - PRESENCE OF AORTOCORONARY BYPASS GRAFT (24) Hyperlipidemia Code(s): E78.5 - HYPERLIPIDEMIA, UNSPECIFIED (25) Hypertension Code(s): I10 - ESSENTIAL (PRIMARY) HYPERTENSION (26) Hypothyroidism Code(s): E03.9 - HYPOTHYROIDISM, UNSPECIFIED (27) ICD (implantable cardioverter-defibrillator) in place Code(s): Z95.810 - PRESENCE OF AUTOMATIC (IMPLANTABLE) CARDIAC DEFIBRILLATOR (28) Multiple allergies Code(s): Z88.9 - ALLERGY STATUS TO UNSP DRUG/MEDS/BIOL SUBST STATUS (29) Obese Code(s): E66.9 - OBESITY, UNSPECIFIED (30) Sleep apnea in adult Code(s): G47.33 - OBSTRUCTIVE SLEEP APNEA (ADULT) (PEDIATRIC) (31) Valvular heart disease Code(s): I38 - ENDOCARDITIS, VALVE UNSPECIFIED Assessment/Plan Problems (1) Anxiety 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 Code(s): F41.0 - PANIC DISORDER [EPISODIC PAROXYSMAL ANXIETY] (2) CAD (coronary artery disease) Code(s): I25.10 - ATHSCL HEART DISEASE OF [place] CORONARY ARTERY W/O ANG PCTRS (3) COPD bronchitis Code(s): J44.9 - CHRONIC OBSTRUCTIVE PULMONARY DISEASE, UNSPECIFIED (4) Diabetes Code(s): E11.9 - TYPE 2 DIABETES MELLITUS WITHOUT COMPLICATIONS (5) Hx of CABG Code(s): Z95.1 - PRESENCE OF AORTOCORONARY BYPASS GRAFT (6) Hyperlipidemia Code(s): E78.5 - HYPERLIPIDEMIA, UNSPECIFIED (7) Hypertension Code(s): I10 - ESSENTIAL (PRIMARY) HYPERTENSION (8) Hypothyroidism Code(s): E03.9 - HYPOTHYROIDISM, UNSPECIFIED (9) ICD (implantable cardioverter-defibrillator) in place Assessment/Plan: Pt reports no shocks. Code(s): Z95.810 - PRESENCE OF AUTOMATIC (IMPLANTABLE) CARDIAC DEFIBRILLATOR (10) Sleep apnea in adult Code(s): G47.33 - OBSTRUCTIVE SLEEP APNEA (ADULT) (PEDIATRIC) (11) Valvular heart disease Code(s): I38 - ENDOCARDITIS, VALVE UNSPECIFIED (12) Acute on chronic systolic and diastolic heart failure, NYHA class 4 Assessment/Plan: 10 beats NSVT Now off dopamine (given for hypotension and transient anuria). Restart metoprolol (systolic CHF; PAF). Periods of hypotension and hyperkalemia make ACEI or Aldactone problematic; restart low-dose ACEI or ARB cautiously if BP and electrolytes allow when possible. Code(s): I50.43 - ACUTE ON CHRONIC COMBINED SYSTOLIC AND DIASTOLIC HRT FAIL (13) Aortic valve replaced Code(s): Z95.2 - PRESENCE OF PROSTHETIC HEART VALVE CC time 35 min
--- NOTE | 2017-01-18 12:51 | PN ---
Teaching Attending Note Name of Resident: Shalini Boone ATTENDING PHYSICIAN STATEMENT I saw and evaluated the patient. I reviewed the resident's note and discussed the case with the resident. I agree with the resident's findings and plan as documented. SUBJECTIVE: Pt seen and examined in the ICU. Feels better today. No shortness of breath or chest pain. No palpitations. OBJECTIVE: Last Vital Signs Temp Pulse Resp BP Pulse Ox 97.7 F 90 22 94/53 98 01/18/17 10:10 01/18/17 10:10 01/18/17 10:10 01/18/17 10:10 01/17/17 21:00 Intake & Output 01/15/17 01/16/17 01/17/17 01/18/17 23:59 23:59 23:59 23:59 Intake Total 1358.5 1090.4 535 Output Total 800 1000 800 Balance 558.5 90.4 -265 Weight 150 lb 6.4 oz 150 lb 3.2 oz 150 lb 9.6 oz Gen: NAD in chair Heart: RRR Lung: scattered rhonchi Abd: soft, nontender Ext: no edema CBC, BMP 01/18/17 05:00 01/18/17 05:00 Active Medications Acetaminophen (Tylenol -) 650 mg PO Q6H PRN PRN Reason: FEVER OR PAIN Last Admin: 01/18/17 05:56 Dose: 650 mg Alprazolam (Xanax -) 0.25 mg PO Q8H PRN PRN Reason: ANXIETY Last Admin: 01/18/17 00:49 Dose: 0.25 mg Aspirin (Asa -) 81 mg PO DAILY [facility] Last Admin: 01/18/17 09:02 Dose: 81 mg Budesonide/Formoterol Fumarate (Symbicort 80/4.5mcg -) 1 puff IH BID [facility] Last Admin: 01/18/17 09:04 Dose: 1 puff Clopidogrel Bisulfate (Plavix -) 75 mg PO DAILY [facility] Last Admin: 01/18/17 09:02 Dose: 75 mg Heparin Sodium (Porcine) (Heparin -) 5,000 unit SQ TID [facility] Last Admin: 01/18/17 05:56 Dose: 5,000 unit Levothyroxine Sodium (Synthroid -) 75 mcg PO DAILY@0700 [facility] Last Admin: 01/18/17 06:00 Dose: 75 mcg Lidocaine (Lidoderm Patch -) 1 patch TP DAILY [facility] Last Admin: 01/18/17 09:01 Dose: 1 patch Metoclopramide HCl (Reglan Injection -) 10 mg IVPB Q6H PRN PRN Reason: NAUSEA AND/OR VOMITING Last Admin: 01/17/17 09:25 Dose: 10 mg Metoprolol Tartrate (Lopressor -) 12.5 mg PO BID [facility] Last Admin: 01/18/17 09:02 Dose: 12.5 mg Miscellaneous (Lidoderm Patch Removal) 1 each MC DAILY@2200 [facility] Last Admin: 01/18/17 00:49 Dose: 1 each Zocor-Patient's Own Medication (N/F) Zocor 1 each PO HS [facility] Last Admin: 01/17/17 23:38 Dose: 1 each Oxycodone HCl (Roxicodone -) 10 mg PO Q6H PRN PRN Reason: PAIN LEVEL 6-10 Oxycodone HCl (Roxicodone -) 5 mg PO Q6H PRN PRN Reason: PAIN LEVEL 1-5 Tiotropium [place] (Spiriva -) 1 puff IH DAILY [facility] Last Admin: 01/18/17 09:02 Dose: 1 inh ASSESSMENT AND PLAN: UTI Septic vs Cardiogenic Shock improving Severe LV Systolic Dysfunction s/p Bi-V ICD Atrial Fibrillation Mitral Regurgitation Pulmonary HTN s/p AVR CAD COPD Hyponatremia Hypothyroidism - lasix as needed - rate control - ASA, plavix - O2 to keep Spo2 >90% - antibiotics completed - inhaled bronchodilators - PO as tolerated - DVT prophylaxis - can monitor on telemetry
--- NOTE | 2017-01-18 13:18 | PN ---
Physical Exam: SUBJECTIVE: Patient seen and examined in the ICU. She is sitting in the chair, in no acute distress. Denies chest pain or shortness of breath. OBJECTIVE: AST/ALT elevated, repeat labs confirm elevation Will order hep panel Vital Signs Period Temp Pulse Resp BP Sys/Camilo Pulse Ox Last 24 Hr 97.6 F-98.3 F 90-102 22-24 90-106/49-74 98 GENERAL: The patient is awake, alert, and fully oriented, in no acute distress. HEAD: Normal with no signs of trauma. EYES: PERRL, extraocular movements intact, sclera anicteric, conjunctiva clear. No ptosis. ENT: Ears normal, nares patent, oropharynx clear without exudates, moist mucous membranes. NECK: Trachea midline, full range of motion, supple. LUNGS: +crackles on left lung base, right lung clear HEART: Regular rate and rhythm ABDOMEN: Soft, nontender, nondistended, normoactive bowel sounds, no guarding, no rebound, no hepatosplenomegaly, no masses. EXTREMITIES: well-perfused, no edema. NEUROLOGICAL: Normal speech, gait not observed. PSYCH: Normal mood, normal affect. SKIN: Warm, dry, normal turgor, no rashes or lesions noted Laboratory Results - last 24 hr 01/18/17 01/18/17 05:00 05:00 WBC 10.4 H RBC 4.02 Hgb 10.8 Hct 32.5 MCV 81.0 MCH 26.9 MCHC 33.3 RDW 15.2 Plt Count 349 MPV 8.9 Neutrophils % 77.4 Lymphocytes % 9.3 D Monocytes % 10.3 H Eosinophils % 2.6 Basophils % 0.4 Sodium 130 L Potassium 4.8 D Chloride 86 L Carbon Dioxide 35 H Anion Gap 9 BUN 40 H Creatinine 0.8 D Creat Clearance w eGFR > 60 Random Glucose 79 Calcium 8.9 Magnesium 2.8 H Total Bilirubin 0.6 AST 270 H D ALT 137 H D Alkaline Phosphatase 132 H D Total Protein 5.9 L Albumin 2.4 L Active Medications Generic Name Dose Route Start Last Admin Trade Name Freq PRN Reason Stop Dose Admin Acetaminophen 650 mg 01/17/17 21:13 01/18/17 05:56 Tylenol - PO 650 mg Q6H PRN Administration FEVER OR PAIN Alprazolam 0.25 mg 01/17/17 14:08 01/18/17 00:49 Xanax - PO 0.25 mg Q8H PRN Administration ANXIETY Aspirin 81 mg 01/14/17 10:00 01/18/17 09:02 Asa - PO 81 mg DAILY [facility] Administration Budesonide/Formoterol Fumarate 1 puff 01/14/17 10:00 01/18/17 09:04 Symbicort 80/4.5mcg - IH 1 puff BID [facility] Administration Clopidogrel Bisulfate 75 mg 01/14/17 10:00 01/18/17 09:02 Plavix - PO 75 mg DAILY [facility] Administration Heparin Sodium (Porcine) 5,000 unit 01/14/17 06:00 01/18/17 05:56 Heparin - SQ 5,000 unit TID [facility] Administration Levothyroxine Sodium 75 mcg 01/14/17 07:00 01/18/17 06:00 Synthroid - PO 75 mcg DAILY@0700 [facility] Administration Lidocaine 1 patch 01/17/17 16:30 01/18/17 09:01 Lidoderm Patch - TP 1 patch DAILY [facility] Administration Metoclopramide HCl 10 mg 01/14/17 05:21 01/17/17 09:25 Reglan Injection - IVPB 10 mg Q6H PRN Administration NAUSEA AND/OR VOMITING Metoprolol Tartrate 12.5 mg 01/17/17 13:15 01/18/17 09:02 Lopressor - PO 12.5 mg BID [facility] Administration Miscellaneous 1 each 01/17/17 22:00 01/18/17 00:49 Lidoderm Patch Removal MC 1 each DAILY@2200 [facility] Administration Zocor-Patient's Own 1 each 01/17/17 22:00 01/17/17 23:38 Medication (N/F) PO 1 each Zocor HS [facility] Administration Oxycodone HCl 10 mg 01/16/17 00:21 Roxicodone - PO Q6H PRN PAIN LEVEL 6-10 Oxycodone HCl 5 mg 01/16/17 00:21 Roxicodone - PO Q6H PRN PAIN LEVEL 1-5 Tiotropium [place] 1 puff 01/14/17 10:00 01/18/17 09:02 Spiriva - IH 1 inh DAILY [facility] Administration ASSESSMENT/PLAN: Patient is an 81 year old female with a significant past medical history of recurrent UTIs, multiple drug allergies, HTN, HLD, CAD, systolic and diastolic heart failure s/p AICD/PPM, s/p aortic valve replacement, and hypothyroidism. She presented to the ER with dysuria, nausea and generalized weakness. Patient reports having painful urination radiating to her right flank which started last Monday. A UA done by her PCP was + for UTI and she was started on antibiotics. Patient reports no improvement since being on the antibiotics. Patient denies fever, chills, cough, SOB, CP, V/D, constipation. On admission she was found to be hypotensive, with leukocytosis and tachycardia. ID: Sepsis: SIRS, sepsis vs. cardiogenic shock, resolved A/P: UTI w/suspicion of urosepsis with hypotension She is now off dopamine which was given for hypotension and anuria Blood and urine cultures negative to date and antibiotics were d/cd Metoprolol BID restarted on 01/17 for systolic CHF WBC 11>15>10.4, Hypotension improving Monitor labs, vitals Cardiology: Acute on chronic systolic and diastolic heart failure s/p PPM A/P: Echo 11/07/16: LV function severely reduced, severe global hypokinesis, EF 29%; RV not well visualized Off dopamine, Monitor BP, now on Lopressor 12.5mg PO BID CAD, chronic A/P: On ASA 81mg daily, Plavix daily Hypertension A/P: Now with hypotension, monitor on tele Hyperlipidemia A/P: Continue home statin Renal: E.coli UTI A/P: UC negative, antibiotics stopped Electrolytes Hyponatremia @128 A/P: Off IV fluids, tolerating PO Encourage PO intake, diuretics on hold Renal following GI: Abdominal pain, resolved A/P: CTAP showed a possible mild but acute diverticulitis She denies any further abdominal pain, tolerating small meals Advance diet as tolerated Elevated AST/ALT, labs repeated and confirm elevation Unclear etiology Hepatitis panel ordered, will order liver ultrasound Xanax contributing? this med may cause hepatotoxicity Will decrease frequency to BID and monitor Endocrine: Hypothyroidism A/P: continue levothyroxine Pulmonary: COPD, chronic A/P: not in acute exacerbation Monitor oxygen saturations, home inhalers F.E.N. Fluids: encourage PO Electrolytes:off iv fluids, encourage PO intake Nutrition: full liquids, advance as tolerated Prophylaxis: DVT: Heparin GI: Protonix Dispo: continues to require inpatient ICU care. Full code. Visit type - Emergency Visit Emergency Visit: Yes ED Registration Date: 01/12/17 Care time: The patient presented to the Emergency Department on the above date and was hospitalized for further evaluation of their emergent condition. - New Patient This patient is new to me today: No - Critical Care Critical Care patient: Yes Total Critical Care Time (in minutes): 60 Critical Care Statement: The care of this patient involved high complexity decision making to prevent further life threatening deterioration of the patient 's condition and/or to evaluate & treat vital organ system(s) failure or risk of failure. - Discharge Referral Referred to [facility] Med [facility].: No
[2017-01-18 13:22] LABS: ALBUMIN 2.7 g/dl (3.4-5.0); ANION GAP 10 (8-16); BILIRUBIN,TOTAL 0.5 mg/dL (0.2-1.0); CALCIUM 9.1 mg/dL (8.5-10.1); CO2 34 mmol/L (21-32); CREATININE 0.9 mg/dL (0.55-1.02); GLUCOSE,RANDOM 112 mg/dL (74-106); SGOT/AST 219 U/L (15-37); SGPT/ALT 140 U/L (12-78)
[2017-01-18 13:23] LABS: ALK PHOS 144 U/L (45-117); TOT PROT 6.9 g/dl (6.4-8.2)
--- NOTE | 2017-01-18 13:38 | PN ---
Progress Note, Physician History of Present Illness: Pt seen and examined at bedside. She says she feels much better today. She is out of bed to chair. She is tolerating diet. - Current Medication List Current Medications: Active Medications Acetaminophen (Tylenol -) 650 mg PO Q6H PRN PRN Reason: FEVER OR PAIN Last Admin: 01/18/17 13:27 Dose: 650 mg Alprazolam (Xanax -) 0.25 mg PO Q8H PRN PRN Reason: ANXIETY Last Admin: 01/18/17 00:49 Dose: 0.25 mg Aspirin (Asa -) 81 mg PO DAILY [facility] Last Admin: 01/18/17 09:02 Dose: 81 mg Budesonide/Formoterol Fumarate (Symbicort 80/4.5mcg -) 1 puff IH BID [facility] Last Admin: 01/18/17 09:04 Dose: 1 puff Clopidogrel Bisulfate (Plavix -) 75 mg PO DAILY [facility] Last Admin: 01/18/17 09:02 Dose: 75 mg Heparin Sodium (Porcine) (Heparin -) 5,000 unit SQ TID [facility] Last Admin: 01/18/17 13:28 Dose: 5,000 unit Levothyroxine Sodium (Synthroid -) 75 mcg PO DAILY@0700 [facility] Last Admin: 01/18/17 06:00 Dose: 75 mcg Lidocaine (Lidoderm Patch -) 1 patch TP DAILY [facility] Last Admin: 01/18/17 09:01 Dose: 1 patch Metoclopramide HCl (Reglan Injection -) 10 mg IVPB Q6H PRN PRN Reason: NAUSEA AND/OR VOMITING Last Admin: 01/17/17 09:25 Dose: 10 mg Metoprolol Tartrate (Lopressor -) 12.5 mg PO BID [facility] Last Admin: 01/18/17 09:02 Dose: 12.5 mg Miscellaneous (Lidoderm Patch Removal) 1 each MC DAILY@2200 [facility] Last Admin: 01/18/17 00:49 Dose: 1 each Zocor-Patient's Own Medication (N/F) Zocor 1 each PO HS [facility] Last Admin: 01/17/17 23:38 Dose: 1 each Oxycodone HCl (Roxicodone -) 10 mg PO Q6H PRN PRN Reason: PAIN LEVEL 6-10 Oxycodone HCl (Roxicodone -) 5 mg PO Q6H PRN PRN Reason: PAIN LEVEL 1-5 Tiotropium [place] (Spiriva -) 1 puff IH DAILY [facility] Last Admin: 01/18/17 09:02 Dose: 1 inh - Objective Vital Signs: Vital Signs Temperature 97.7 F 01/18/17 10:10 Pulse Rate 90 01/18/17 12:00 Respiratory Rate 22 01/18/17 12:00 Blood Pressure 90/49 01/18/17 12:00 O2 Sat by Pulse Oximetry (%) 98 01/17/17 21:00 Constitutional: Yes: Calm Eyes: Yes: Conjunctiva Clear HENT: Yes: Atraumatic Cardiovascular: Yes: S1, S2 Respiratory: Yes: On Nasal O2 Gastrointestinal: Yes: Soft Genitourinary: Yes: Miranda Present Musculoskeletal: Yes: Muscle Weakness Edema: No Neurological: Yes: Oriented Psychiatric: Yes: Oriented Labs: CBC, BMP 01/18/17 05:00 01/18/17 12:40 INR, PTT INR 1.12 (0.82-1.09) 01/12/17 15:45 Problem List - Problems (1) Hypokalemia Code(s): E87.6 - HYPOKALEMIA (2) Hyponatremia Code(s): E87.1 - HYPO-OSMOLALITY AND HYPONATREMIA (3) UTI (urinary tract infection) Code(s): N39.0 - URINARY TRACT INFECTION, SITE NOT SPECIFIED Qualifiers: Qualified Code(s): N39.0 - Urinary tract infection, site not specified; N39.0 - Urinary tract infection, site not specified; R31.9 - Hematuria, unspecified; R31.9 - Hematuria, unspecified (4) Acute on chronic systolic CHF (congestive heart failure) Code(s): I50.23 - ACUTE ON CHRONIC SYSTOLIC (CONGESTIVE) HEART FAILURE (5) COPD (chronic obstructive pulmonary disease) Code(s): J44.9 - CHRONIC OBSTRUCTIVE PULMONARY DISEASE, UNSPECIFIED Assessment/Plan Current Medications Generic Name Dose Route Start Last Admin Trade Name Freq PRN Reason Stop Dose Admin Acetaminophen 650 mg 01/17/17 21:13 01/18/17 13:27 Tylenol - PO 650 mg Q6H PRN Administration FEVER OR PAIN Alprazolam 0.25 mg 01/17/17 14:08 01/18/17 00:49 Xanax - PO 0.25 mg Q8H PRN Administration ANXIETY Aspirin 81 mg 01/14/17 10:00 01/18/17 09:02 Asa - PO 81 mg DAILY [facility] Administration Budesonide/Formoterol Fumarate 1 puff 01/14/17 10:00 01/18/17 09:04 Symbicort 80/4.5mcg - IH 1 puff BID [facility] Administration Clopidogrel Bisulfate 75 mg 01/14/17 10:00 01/18/17 09:02 Plavix - PO 75 mg DAILY [facility] Administration Heparin Sodium (Porcine) 5,000 unit 01/14/17 06:00 01/18/17 13:28 Heparin - SQ 5,000 unit TID [facility] Administration Levothyroxine Sodium 75 mcg 01/14/17 07:00 01/18/17 06:00 Synthroid - PO 75 mcg DAILY@0700 [facility] Administration Lidocaine 1 patch 01/17/17 16:30 01/18/17 09:01 Lidoderm Patch - TP 1 patch DAILY [facility] Administration Metoclopramide HCl 10 mg 01/14/17 05:21 01/17/17 09:25 Reglan Injection - IVPB 10 mg Q6H PRN Administration NAUSEA AND/OR VOMITING Metoprolol Tartrate 12.5 mg 01/17/17 13:15 01/18/17 09:02 Lopressor - PO 12.5 mg BID [facility] Administration Miscellaneous 1 each 01/17/17 22:00 01/18/17 00:49 Lidoderm Patch Removal MC 1 each DAILY@2200 [facility] Administration Zocor-Patient's Own 1 each 01/17/17 22:00 01/17/17 23:38 Medication (N/F) PO 1 each Zocor HS [facility] Administration Oxycodone HCl 10 mg 01/16/17 00:21 Roxicodone - PO Q6H PRN PAIN LEVEL 6-10 Oxycodone HCl 5 mg 01/16/17 00:21 Roxicodone - PO Q6H PRN PAIN LEVEL 1-5 Tiotropium [place] 1 puff 01/14/17 10:00 01/18/17 09:02 Spiriva - IH 1 inh DAILY [facility] Administration 1. UTI 2. hyponatremia 3. paralyzed hemidiaphragm 4. HTN 5. valvular heart disease 6. azotemia 7. hypothyroid 8. CAD 9. hypokalemia 10. alkalosis 11. transaminitis Plan - sodium is dropping - repeat labs in am - hold off diueretics for now - remove miranda - cardiology follow up - LFTs are rising, unclear etiology - will follow Dr Bella
--- NOTE | 2017-01-18 16:54 | PN ---
Physical Exam: SUBJECTIVE: Patient seen and examined by me at bedside. No overnight events noted. Patient reports feeling much better with improvement in her shortness of breath. Patient still reports intermittent neck pain. Otherwise, patient denies fever, chills, nausea, vomiting, abdominal pain, chest pain, palpitations. OBJECTIVE: Vital Signs Period Temp Pulse Resp BP Sys/Camilo Pulse Ox Last 24 Hr 97.5 F-98.3 F 89-102 22-24 90-101/49-81 98 GENERAL: The patient is awake, alert, and fully oriented, in no acute distress. HEAD: Normal with no signs of trauma. EYES: Sclera anicteric, conjunctiva clear. No ptosis. ENT: Dry mucous membranes NECK: Trachea midline, full range of motion, supple. LUNGS: Decreased breath sounds throughout lung bases HEART: Regular rate and rhythm, normal S1 and S2 without murmur, rub or gallop. ABDOMEN: Soft, nontender, nondistended, normoactive bowel sounds, no guarding EXTREMITIES: 2+ pulses, warm, well-perfused, no edema. Laboratory Results - last 24 hr 01/18/17 01/18/17 01/18/17 05:00 05:00 12:40 WBC 10.4 H RBC 4.02 Hgb 10.8 Hct 32.5 MCV 81.0 MCH 26.9 MCHC 33.3 RDW 15.2 Plt Count 349 MPV 8.9 Neutrophils % 77.4 Lymphocytes % 9.3 D Monocytes % 10.3 H Eosinophils % 2.6 Basophils % 0.4 Sodium 130 L 128 L Potassium 4.8 D 4.6 Chloride 86 L 84 L Carbon Dioxide 35 H 34 H Anion Gap 9 10 BUN 40 H 41 H Creatinine 0.8 D 0.9 Creat Clearance w eGFR > 60 59.80 Random Glucose 79 112 H D Calcium 8.9 9.1 Magnesium 2.8 H Total Bilirubin 0.6 0.5 AST 270 H D 219 H ALT 137 H D 140 H Alkaline Phosphatase 132 H D 144 H Total Protein 5.9 L 6.9 Albumin 2.4 L 2.7 L Active Medications Generic Name Dose Route Start Last Admin Trade Name Freq PRN Reason Stop Dose Admin Acetaminophen 650 mg 01/17/17 21:13 01/18/17 13:27 Tylenol - PO 650 mg Q6H PRN Administration FEVER OR PAIN Alprazolam 0.25 mg 01/18/17 22:00 Xanax - PO BID [facility] Aspirin 81 mg 01/14/17 10:00 01/18/17 09:02 Asa - PO 81 mg DAILY [facility] Administration Budesonide/Formoterol Fumarate 1 puff 01/14/17 10:00 01/18/17 09:04 Symbicort 80/4.5mcg - IH 1 puff BID [facility] Administration Clopidogrel Bisulfate 75 mg 01/14/17 10:00 01/18/17 09:02 Plavix - PO 75 mg DAILY [facility] Administration Heparin Sodium (Porcine) 5,000 unit 01/14/17 06:00 01/18/17 13:28 Heparin - SQ 5,000 unit TID [facility] Administration Levothyroxine Sodium 75 mcg 01/14/17 07:00 01/18/17 06:00 Synthroid - PO 75 mcg DAILY@0700 [facility] Administration Lidocaine 1 patch 01/17/17 16:30 01/18/17 09:01 Lidoderm Patch - TP 1 patch DAILY [facility] Administration Metoclopramide HCl 10 mg 01/14/17 05:21 01/17/17 09:25 Reglan Injection - IVPB 10 mg Q6H PRN Administration NAUSEA AND/OR VOMITING Metoprolol Tartrate 12.5 mg 01/17/17 13:15 01/18/17 09:02 Lopressor - PO 12.5 mg BID [facility] Administration Miscellaneous 1 each 01/17/17 22:00 01/18/17 00:49 Lidoderm Patch Removal MC 1 each DAILY@2200 [facility] Administration Zocor-Patient's Own 1 each 01/17/17 22:00 01/17/17 23:38 Medication (N/F) PO 1 each Zocor HS [facility] Administration Oxycodone HCl 10 mg 01/16/17 00:21 Roxicodone - PO Q6H PRN PAIN LEVEL 6-10 Oxycodone HCl 5 mg 01/16/17 00:21 Roxicodone - PO Q6H PRN PAIN LEVEL 1-5 Tiotropium [place] 1 puff 01/14/17 10:00 01/18/17 09:02 Spiriva - IH 1 inh DAILY [facility] Administration ASSESSMENT/PLAN: Patient is an 81 year old female with a significant PMHx of HTN, HLD, CAD, systolic and diastolic heart failure s/p AICD/PPM, s/p aortic valve replacement , and hypothyroidism who presented with weakness and dysuria. Patient was found to have a UTI and was started on antibiotics. Throughout her hospital course patient started having hypotension requiring pressors and monitoring in ICU. Neuro -AAOX3 -No focal deficits Infectious Disease #Sepsis secondary to UTI with cardiogenic shock-Resolved -Off antibiotics and presssors -Blood cultures and urine cultures negative -Continue to monitor CBC, BMP Cardiovascular: #Acute on chronic systolic and diastolic heart failure s/p AICD/PPM -Echo 11/07/16: LV function severely reduced, severe global hypokinesis, EF 29%; RV not well visualized -Off Dopamine and pressors -Will continue to hold Metoprolol due to hypotension #CAD -Continue ASA 81mg daily -Continue Plavix 75mg daily #Hypertension -Borderline hypotensive -Will continue to hold BB -Continue to monitor BP #HLD -Continue home medication Zocor 40mg daily Renal #BETTIE- Resolved -Likely secondary to Hypovolemia/Sepsis -Continue to monitor BMP GI #Transaminitis -AST/ALT/ALK Phos elevated -Hepatitis panel ordered -Liver U/S ordered Endocrine #Hypothyroidism -Continue synthroid 75mcg Pulmonary #COPD -No in acute exacerbation -Continue Home bronchdilators -Contine to monitor 02 saturation F/E/N -On no IV fluids -Electrolytes wnl -Sodium controlled diet Prophylaxis -High Risk. Heparin 5000 units SQ Q8H for DVT -No GI required Deconditioning -PT ordered Disposition -Full code -Transfer to floors Visit type - Emergency Visit Emergency Visit: Yes ED Registration Date: 01/12/17 Care time: The patient presented to the Emergency Department on the above date and was hospitalized for further evaluation of their emergent condition. - New Patient This patient is new to me today: Yes Date on this admission: 01/18/17 - Critical Care Critical Care patient: Yes Total Critical Care Time (in minutes): 45 Critical Care Statement: The care of this patient involved high complexity decision making to prevent further life threatening deterioration of the patient 's condition and/or to evaluate & treat vital organ system(s) failure or risk of failure.
[2017-01-18] MEDS ORDERED: morphine CARPU-JECT 2 MG/1 ML DISP.SYRIN IVPUSH ONE (16:55)
[2017-01-18] MEDS ORDERED: METOCLOPRAMIDE HCL INJECTION 10 MG/2 ML VIAL IVPB PRN (19:41)
[2017-01-18] MEDS ORDERED: oxyCODONE HCL 5 MG TABLET PO PRN (19:41)
[2017-01-18] MEDS: ALPRAZolam 0.25 MG TABLET PO SCH (21:10)
[2017-01-18] MEDS: ZOCOR PO SCH (21:10)
[2017-01-18] MEDS ORDERED: LIDOCAINE PATCH REMOVAL MC SCH (22:00)
[2017-01-19] MEDS: oxyCODONE HCL 5 MG TABLET PO PRN ×3 (00:15→19:39)
[2017-01-19] MEDS: HEPARIN NA (PORCINE) 5,000 UNITS/ML 1ML VIAL SQ SCH ×3 (05:50→22:12)
[2017-01-19] MEDS: LEVOTHYROXINE NA 75 MCG TABLET (FP) PO SCH ×2 (06:03→09:20)
[2017-01-19 06:05] LABS: MCH 26.7 pg (25.7-33.7); MCHC 33.2 g/dl (32.0-36.0); MEAN CELL VOLUME 80.3 fl (80-96); MEAN PLT VOLUME 8.9 fl (7.5-11.1); PLATELET COUNT 385 K/MM3 (134-434); RDW 15.5 % (11.6-15.6); WHITE BLOOD COUNT 10.8 K/mm3 (4.0-10.0)
[2017-01-19 06:07] LABS: HEP B SURFACE AB Non Reactive (.)
[2017-01-19 06:29] LABS: ALBUMIN 2.5 g/dl (3.4-5.0); ALK PHOS 167 U/L (45-117); ANION GAP 10 (8-16); BILIRUBIN,TOTAL 0.5 mg/dL (0.2-1.0); CALCIUM 8.2 mg/dL (8.5-10.1); CO2 34 mmol/L (21-32); CREATININE 0.8 mg/dL (0.55-1.02); GLUCOSE,RANDOM 94 mg/dL (74-106); MAGNESIUM 2.5 mg/dL (1.8-2.4); PHOSPHOROUS 3.8 mg/dL (2.5-4.9); SGOT/AST 236 U/L (15-37); SGPT/ALT 189 U/L (12-78)
[2017-01-19] MEDS ORDERED: PT OWN MED DRAWER 7, Y5N ONE ×3 (09:17→22:03)
[2017-01-19] MEDS: TIOTROPIUM BROMIDE 18 MCG/INH (DEVICE W/ 5 CAPSULES) IH SCH (09:18)
[2017-01-19] MEDS: BUDESONIDE/FORMETEROL FUMARATE 80/4.5 mcg INHALER IH SCH ×2 (09:19→22:14)
[2017-01-19] MEDS: METOPROLOL TARTRATE 25 MG TABLET (FP) PO SCH ×2 (09:20→22:11)
[2017-01-19] MEDS: ASPIRIN 81 MG CHEWABLE TABLETS PO SCH (09:21)
[2017-01-19] MEDS: ALPRAZolam 0.25 MG TABLET PO SCH ×2 (09:21→22:11)
[2017-01-19] MEDS: CLOPIDOGREL BISULFATE 75 MG TABLET (FP) PO SCH (09:22)
[2017-01-19] MEDS: LIDOCAINE 5% TOPICAL PATCH TP SCH (09:27)
--- NOTE | 2017-01-19 13:14 | PN ---
Progress Note (short form) - Note Progress Note: PULMONARY Denies shortness of breath or chest pain. Last Vital Signs Temp Pulse Resp BP Pulse Ox 97.6 F 110 H 22 98/59 95 01/19/17 13:04 01/19/17 13:04 01/19/17 13:04 01/19/17 13:04 01/19/17 10:00 Intake & Output 01/16/17 01/17/17 01/18/17 01/19/17 23:59 23:59 23:59 23:59 Intake Total 1090.4 535 360 Output Total 1000 800 250 100 Balance 90.4 -265 110 -100 Weight 150 lb 3.2 oz 150 lb 9.6 oz 155 lb 3.2 oz Gen: NAD in chair Heart: tachycardic, regular Lung: distant breath sounds Abd: soft, nontender Ext: no edema CBC, BMP 01/19/17 05:00 01/19/17 05:00 Active Medications Alprazolam (Xanax -) 0.25 mg PO BID [facility] Last Admin: 01/19/17 09:21 Dose: 0.25 mg Aspirin (Asa -) 81 mg PO DAILY [facility] Last Admin: 01/19/17 09:21 Dose: 81 mg Budesonide/Formoterol Fumarate (Symbicort 80/4.5mcg -) 1 puff IH BID [facility] Last Admin: 01/19/17 09:19 Dose: 1 puff Clopidogrel Bisulfate (Plavix -) 75 mg PO DAILY [facility] Last Admin: 01/19/17 09:22 Dose: 75 mg Heparin Sodium (Porcine) (Heparin -) 5,000 unit SQ TID [facility] Last Admin: 01/19/17 05:50 Dose: 5,000 unit Levothyroxine Sodium (Synthroid -) 75 mcg PO DAILY@0700 [facility] Last Admin: 01/19/17 09:20 Dose: 75 mcg Lidocaine (Lidoderm Patch -) 1 patch TP DAILY [facility] Last Admin: 01/19/17 09:27 Dose: 1 patch Metoclopramide HCl (Reglan Injection -) 10 mg IVPB Q6H PRN PRN Reason: NAUSEA AND/OR VOMITING Metoprolol Tartrate (Lopressor -) 12.5 mg PO BID [facility] Last Admin: 01/19/17 09:20 Dose: 12.5 mg Miscellaneous (Lidoderm Patch Removal) 1 each MC DAILY@2200 [facility] Last Admin: 01/18/17 21:11 Dose: 1 each Zocor -Patient's Own (Medication (Nf)) 1 each PO HS [facility] Last Admin: 01/18/17 21:10 Dose: 1 each Oxycodone HCl (Roxicodone -) 10 mg PO Q6H PRN PRN Reason: PAIN LEVEL 6-10 Oxycodone HCl (Roxicodone -) 5 mg PO Q6H PRN PRN Reason: PAIN LEVEL 1-5 Last Admin: 01/19/17 00:15 Dose: 5 mg Tiotropium [place] (Spiriva -) 1 puff IH DAILY [facility] Last Admin: 01/19/17 09:18 Dose: 1 puff A/P UTI Septic vs Cardiogenic Shock resolved Severe LV Systolic Dysfunction s/p Bi-V ICD Atrial Fibrillation Mitral Regurgitation Pulmonary HTN s/p AVR CAD COPD Hyponatremia Hypothyroidism - lasix as needed - rate control - ASA, plavix - O2 to keep Spo2 >90% - antibiotics completed - inhaled bronchodilators - PO as tolerated - DVT prophylaxis
--- NOTE | 2017-01-19 15:58 | PN ---
Progress Note, Physician History of Present Illness: Pt seen and examined at bedside. She is out of bed to chair. She complains of neck pain that she had last night. - Current Medication List Current Medications: Active Medications Alprazolam (Xanax -) 0.25 mg PO BID [facility] Last Admin: 01/19/17 09:21 Dose: 0.25 mg Aspirin (Asa -) 81 mg PO DAILY [facility] Last Admin: 01/19/17 09:21 Dose: 81 mg Budesonide/Formoterol Fumarate (Symbicort 80/4.5mcg -) 1 puff IH BID [facility] Last Admin: 01/19/17 09:19 Dose: 1 puff Clopidogrel Bisulfate (Plavix -) 75 mg PO DAILY [facility] Last Admin: 01/19/17 09:22 Dose: 75 mg Heparin Sodium (Porcine) (Heparin -) 5,000 unit SQ TID [facility] Last Admin: 01/19/17 13:35 Dose: 5,000 unit Levothyroxine Sodium (Synthroid -) 75 mcg PO DAILY@0700 [facility] Last Admin: 01/19/17 09:20 Dose: 75 mcg Lidocaine (Lidoderm Patch -) 1 patch TP DAILY [facility] Last Admin: 01/19/17 09:27 Dose: 1 patch Metoclopramide HCl (Reglan Injection -) 10 mg IVPB Q6H PRN PRN Reason: NAUSEA AND/OR VOMITING Metoprolol Tartrate (Lopressor -) 12.5 mg PO BID [facility] Last Admin: 01/19/17 09:20 Dose: 12.5 mg Miscellaneous (Lidoderm Patch Removal) 1 each MC DAILY@2200 [facility] Last Admin: 01/18/17 21:11 Dose: 1 each Zocor -Patient's Own (Medication (Nf)) 1 each PO HS [facility] Last Admin: 01/18/17 21:10 Dose: 1 each Oxycodone HCl (Roxicodone -) 10 mg PO Q6H PRN PRN Reason: PAIN LEVEL 6-10 Oxycodone HCl (Roxicodone -) 5 mg PO Q6H PRN PRN Reason: PAIN LEVEL 1-5 Last Admin: 01/19/17 13:34 Dose: 5 mg Tiotropium [place] (Spiriva -) 1 puff IH DAILY [facility] Last Admin: 01/19/17 09:18 Dose: 1 puff - Objective Vital Signs: Vital Signs Temperature 97.6 F 01/19/17 14:00 Pulse Rate 110 H 01/19/17 14:00 Respiratory Rate 22 01/19/17 14:00 Blood Pressure 98/59 01/19/17 14:00 O2 Sat by Pulse Oximetry (%) 95 01/19/17 10:00 Constitutional: Yes: Calm Eyes: Yes: Conjunctiva Clear HENT: Yes: Atraumatic Neck: Yes: Supple Cardiovascular: Yes: S1, S2 Respiratory: Yes: On Nasal O2 Gastrointestinal: Yes: Soft Genitourinary: Yes: WNL Musculoskeletal: Yes: WNL Edema: No Neurological: Yes: Oriented Psychiatric: Yes: Oriented Labs: CBC, BMP 01/19/17 05:00 01/19/17 05:00 INR, PTT INR 1.12 (0.82-1.09) 01/12/17 15:45 Problem List - Problems (1) Hypokalemia Code(s): E87.6 - HYPOKALEMIA (2) Hyponatremia Code(s): E87.1 - HYPO-OSMOLALITY AND HYPONATREMIA (3) UTI (urinary tract infection) Code(s): N39.0 - URINARY TRACT INFECTION, SITE NOT SPECIFIED Qualifiers: Urinary tract infection type: site unspecified Hematuria presence: without hematuria Qualified Code(s): N39.0 - Urinary tract infection, site not specified; N39.0 - Urinary tract infection, site not specified; R31.9 - Hematuria, unspecified; R31.9 - Hematuria, unspecified (4) Acute on chronic systolic CHF (congestive heart failure) Code(s): I50.23 - ACUTE ON CHRONIC SYSTOLIC (CONGESTIVE) HEART FAILURE (5) COPD (chronic obstructive pulmonary disease) Code(s): J44.9 - CHRONIC OBSTRUCTIVE PULMONARY DISEASE, UNSPECIFIED Assessment/Plan Current Medications Generic Name Dose Route Start Last Admin Trade Name Freq PRN Reason Stop Dose Admin Alprazolam 0.25 mg 01/18/17 22:00 01/19/17 09:21 Xanax - PO 0.25 mg BID [facility] Administration Aspirin 81 mg 01/19/17 10:00 01/19/17 09:21 Asa - PO 81 mg DAILY [facility] Administration Budesonide/Formoterol Fumarate 1 puff 01/18/17 22:00 10/12/17 09:19 Symbicort 80/4.5mcg - IH 1 puff BID [facility] Administration Clopidogrel Bisulfate 75 mg 01/19/17 10:00 01/19/17 09:22 Plavix - PO 75 mg DAILY [facility] Administration Heparin Sodium (Porcine) 5,000 unit 01/18/17 22:00 01/19/17 13:35 Heparin - SQ 5,000 unit TID [facility] Administration Levothyroxine Sodium 75 mcg 01/19/17 07:00 01/19/17 09:20 Synthroid - PO 75 mcg DAILY@0700 [facility] Administration Lidocaine 1 patch 01/19/17 10:00 01/19/17 09:27 Lidoderm Patch - TP 1 patch DAILY [facility] Administration Metoclopramide HCl 10 mg 01/18/17 19:41 Reglan Injection - IVPB Q6H PRN NAUSEA AND/OR VOMITING Metoprolol Tartrate 12.5 mg 01/18/17 22:00 01/19/17 09:20 Lopressor - PO 12.5 mg BID [facility] Administration Miscellaneous 1 each 01/18/17 22:00 01/18/17 21:11 Lidoderm Patch Removal MC 1 each DAILY@2200 [facility] Administration Zocor -Patient's Own 1 each 01/18/17 22:00 01/18/17 21:10 Medication (Nf) PO 1 each HS [facility] Administration Oxycodone HCl 10 mg 01/18/17 19:41 Roxicodone - PO Q6H PRN PAIN LEVEL 6-10 Oxycodone HCl 5 mg 01/18/17 19:41 01/19/17 13:34 Roxicodone - PO 5 mg Q6H PRN Administration PAIN LEVEL 1-5 Tiotropium [place] 1 puff 01/19/17 10:00 01/19/17 09:18 Spiriva - IH 1 puff DAILY [facility] Administration 1. UTI 2. hyponatremia 3. paralyzed hemidiaphragm 4. HTN 5. valvular heart disease 6. azotemia 7. hypothyroid 8. CAD 9. hypokalemia 10. alkalosis 11. transaminitis Plan - will order am cxr - will give a small dose of PO lasix today - repeat cmp in am - pt tolerated voiding trial - cardiology follow up - will follow Dr Bella
[2017-01-19] MEDS ORDERED: FUROSEMIDE 20 MG TABLET (FP) PO ONE (16:15)
--- NOTE | 2017-01-19 17:03 | PN ---
Progress Note (short form) - Note Progress Note: Subjective: The patient was seen and examined at the bedside, she reports feeling better today, however is concerned about her lower extremity edema. Lasix 20 mg po once Current Medications Generic Name Dose Route Start Last Admin Trade Name Freq PRN Reason Stop Dose Admin Alprazolam 0.25 mg 01/18/17 22:00 01/19/17 09:21 Xanax - PO 0.25 mg BID [facility] Administration Aspirin 81 mg 01/19/17 10:00 01/19/17 09:21 Asa - PO 81 mg DAILY [facility] Administration Budesonide/Formoterol Fumarate 1 puff 01/18/17 22:00 01/19/17 09:19 Symbicort 80/4.5mcg - IH 1 puff BID [facility] Administration Clopidogrel Bisulfate 75 mg 01/19/17 10:00 01/19/17 09:22 Plavix - PO 75 mg DAILY [facility] Administration Heparin Sodium (Porcine) 5,000 unit 01/18/17 22:00 01/19/17 13:35 Heparin - SQ 5,000 unit TID [facility] Administration Levothyroxine Sodium 75 mcg 01/19/17 07:00 01/19/17 09:20 Synthroid - PO 75 mcg DAILY@0700 [facility] Administration Lidocaine 1 patch 01/19/17 10:00 01/19/17 09:27 Lidoderm Patch - TP 1 patch DAILY [facility] Administration Methyl Salicylate 1 applic 01/19/17 16:15 Malick-Stewart - TP DAILY [facility] Metoclopramide HCl 10 mg 01/18/17 19:41 Reglan Injection - IVPB Q6H PRN NAUSEA AND/OR VOMITING Metoprolol Tartrate 12.5 mg 01/18/17 22:00 01/19/17 09:20 Lopressor - PO 12.5 mg BID [facility] Administration Miscellaneous 1 each 01/18/17 22:00 01/18/17 21:11 Lidoderm Patch Removal MC 1 each DAILY@2200 [facility] Administration Zocor -Patient's Own 1 each 01/18/17 22:00 01/18/17 21:10 Medication (Nf) PO 1 each HS [facility] Administration Oxycodone HCl 10 mg 01/18/17 19:41 Roxicodone - PO Q6H PRN PAIN LEVEL 6-10 Oxycodone HCl 5 mg 01/18/17 19:41 01/19/17 13:34 Roxicodone - PO 5 mg Q6H PRN Administration PAIN LEVEL 1-5 Tiotropium [place] 1 puff 01/19/17 10:00 01/19/17 09:18 Spiriva - IH 1 puff DAILY [facility] Administration Objective: Vital Signs Period Temp Pulse Resp BP Sys/Camilo Pulse Ox Last 24 Hr 97.5 F-97.7 F 98-110 20-22 92-106/53-70 92-99 Physical Exam: General: NAD, A&Ox3 Lungs: CTA bilaterally Heart: Tachycardia, S1S2 Abd: Soft, non-tender, non-distended. Normoactive bowel sounds Ext: B/l lower extremities with no edema CBCD WBC 10.8 K/mm3 (4.0-10.0) H 01/19/17 05:00 RBC 3.91 M/mm3 (3.60-5.2) 01/19/17 05:00 Hgb 10.4 GM/dL (10.7-15.3) L 01/19/17 05:00 Hct 31.4 % (32.4-45.2) L 01/19/17 05:00 MCV 80.3 fl (80-96) 01/19/17 05:00 MCHC 33.2 g/dl (32.0-36.0) 01/19/17 05:00 RDW 15.5 % (11.6-15.6) 01/19/17 05:00 Plt Count 385 K/MM3 (134-434) 01/19/17 05:00 MPV 8.9 fl (7.5-11.1) 01/19/17 05:00 CMP Sodium 128 mmol/L (136-145) L 01/19/17 05:00 Potassium 4.6 mmol/L (3.5-5.1) 01/19/17 05:00 Chloride 84 mmol/L (98-107) L 01/19/17 05:00 Carbon Dioxide 34 mmol/L (21-32) H 01/19/17 05:00 Anion Gap 10 (8-16) 01/19/17 05:00 BUN 44 mg/dL (7-18) H 01/19/17 05:00 Creatinine 0.8 mg/dL (0.55-1.02) 01/19/17 05:00 Creat Clearance w eGFR > 60 (>60) 01/19/17 05:00 Random Glucose 94 mg/dL (74-106) 01/19/17 05:00 Calcium 8.2 mg/dL (8.5-10.1) L 01/19/17 05:00 Total Bilirubin 0.5 mg/dL (0.2-1.0) 01/19/17 05:00 AST 236 U/L (15-37) H 01/19/17 05:00 ALT 189 U/L (12-78) H D 01/19/17 05:00 Alkaline Phosphatase 167 U/L (45-117) H 01/19/17 05:00 Total Protein 6.0 g/dl (6.4-8.2) L 01/19/17 05:00 Albumin 2.5 g/dl (3.4-5.0) L 01/19/17 05:00 CARDIAC ENZYMES Creatine Kinase 29 IU/L (26-192) 01/12/17 15:45 Troponin I 0.03 ng/ml (0.00-0.05) 01/12/17 15:45 Microbiology 01/12/17 20:50 Blood - Peripheral Venous Blood Culture - Final NO GROWTH AFTER 5 DAYS INCUBATION 01/12/17 20:50 Blood - Peripheral Venous Blood Culture - Final NO GROWTH AFTER 5 DAYS INCUBATION 01/14/17 15:00 Urine - Urine [place] Urine Culture - Final NO GROWTH OBTAINED 01/12/17 15:45 Urine - Urine Clean Catch Urine Culture - Final Contaminated: Please Repeat Assessment: This is an 81 year old female with PMHx of HTN, hyperlipidemia, CAD s/p CABG, AVR, severe LV systolic dysfunction s/p Bi-V ICD, combined systolic and diastolic heart failure, hypothyroidism, who presented to the ED with dysuria, right flank pain Plan: 1) Cardiology: Cardiogenic shock, acute on chronic systolic and diastolic heart failure, severe LV systolic dysfunction - Shock resolved, maintaining MAP off dopamine - Given Lasix 20mg po today - F/u Chest X-ray in the AM - Continue Lopressor bid - ECHO reviewed - Appreciate cardiology consult HTN - As above Hyperlipidemia - Continue Zocor CAD s/p CABG AVR - Continue ASA - Continue Plavix Ventricular tachycardia - 36 beats on 01/14 - No ICD shock 2) GI: Transaminitis - Liver ultrasound with hepatomegaly and diffuse fatty infiltration of the liver - Hepatitis panel negative - Trend tomorrow AM. Hopefully will improve with diuresis 3) ID: Suspected sepsis 2/2 UTI - Urine culture negative - Off all abx 4) : BETTIE - Resolved 5) Endocrine: Hypothyroidism - Continue Synthroid 6) F/E/N - Hyponatremia: likely hypervolemic hyponatremia - Sodium controlled diet 7) Prophylaxis: - Heparin 5,000u sq tid 8) Dispo: - Requires continued inpatient care CODE STATUS: FULL CODE Visit type - Emergency Visit Emergency Visit: Yes ED Registration Date: 01/12/17 Care time: The patient presented to the Emergency Department on the above date and was hospitalized for further evaluation of their emergent condition. - New Patient This patient is new to me today: Yes Date on this admission: 01/19/17 - Critical Care Critical Care patient: No
--- NOTE | 2017-01-19 18:38 | PN ---
Progress Note, Physician Chief Complaint: Pt A&Ox3; pain in her neck and back have subsided; dyspneic on mild exertion. History of Present Illness: Ms. Hou is an 81 yo white woman with a significant past medical history of systolic CHF, CAD s/p SD-->CABG, bioprosthetic AoVR, and ICD; HTN, hyperlipidemia, overweight, anxiety/depression, who presents with significant abdominal discomfort after trial of oral antibiotics for UTI. PCP called to alert of presentation to ER, ID consulted as patient has extensive allergies to medication. The patient denies chest pain, shortness of breath, headache and dizziness. Denies fever, chills, nausea, vomit, diarrhea and constipation. Reports her dysuria has decreased but is not gone, still has frequency and urgency. - Current Medication List Current Medications: Active Medications Alprazolam (Xanax -) 0.25 mg PO BID [facility] Last Admin: 01/19/17 09:21 Dose: 0.25 mg Aspirin (Asa -) 81 mg PO DAILY [facility] Last Admin: 01/19/17 09:21 Dose: 81 mg Budesonide/Formoterol Fumarate (Symbicort 80/4.5mcg -) 1 puff IH BID [facility] Last Admin: 01/19/17 09:19 Dose: 1 puff Clopidogrel Bisulfate (Plavix -) 75 mg PO DAILY [facility] Last Admin: 01/19/17 09:22 Dose: 75 mg Heparin Sodium (Porcine) (Heparin -) 5,000 unit SQ TID [facility] Last Admin: 01/19/17 13:35 Dose: 5,000 unit Levothyroxine Sodium (Synthroid -) 75 mcg PO DAILY@0700 [facility] Last Admin: 01/19/17 09:20 Dose: 75 mcg Lidocaine (Lidoderm Patch -) 1 patch TP DAILY [facility] Last Admin: 01/19/17 09:27 Dose: 1 patch Methyl Salicylate (Malick-Stewart -) 1 applic TP DAILY [facility] Metoclopramide HCl (Reglan Injection -) 10 mg IVPB Q6H PRN PRN Reason: NAUSEA AND/OR VOMITING Metoprolol Tartrate (Lopressor -) 12.5 mg PO BID [facility] Last Admin: 01/19/17 09:20 Dose: 12.5 mg Miscellaneous (Lidoderm Patch Removal) 1 each MC DAILY@2200 [facility] Last Admin: 01/18/17 21:11 Dose: 1 each Zocor -Patient's Own (Medication (Nf)) 1 each PO HS [facility] Last Admin: 01/18/17 21:10 Dose: 1 each Oxycodone HCl (Roxicodone -) 10 mg PO Q6H PRN PRN Reason: PAIN LEVEL 6-10 Oxycodone HCl (Roxicodone -) 5 mg PO Q6H PRN PRN Reason: PAIN LEVEL 1-5 Last Admin: 01/19/17 13:34 Dose: 5 mg Tiotropium [place] (Spiriva -) 1 puff IH DAILY [facility] Last Admin: 01/19/17 09:18 Dose: 1 puff - Objective Vital Signs: Vital Signs Temperature 97.6 F 01/19/17 14:00 Pulse Rate 94 H 01/19/17 17:49 Respiratory Rate 22 01/19/17 17:49 Blood Pressure 94/62 01/19/17 17:49 O2 Sat by Pulse Oximetry (%) 92 L 01/19/17 16:27 Constitutional: Yes: Anxious Eyes: Yes: WNL HENT: Yes: WNL Neck: Yes: WNL Cardiovascular: Yes: Pulse Irregular Respiratory: Yes: Regular, Diminished Gastrointestinal: Yes: Soft ...Rectal Exam: Yes: Deferred Genitourinary: No: Anuria Breast(s): Yes: WNL Musculoskeletal: Yes: Muscle Weakness Extremities: Yes: Cool Edema: Yes Edema: LLE: Trace, RLE: Trace Peripheral Pulses WNL: No Integumentary: Yes: WNL Neurological: Yes: Alert, Oriented, Weakness Psychiatric: Yes: Other (anxiety/depression/panic) Labs: CBC, BMP 01/19/17 05:00 01/19/17 05:00 INR, PTT INR 1.12 (0.82-1.09) 01/12/17 15:45 - ....Imaging Ultrasound: Image Reviewed (liver US: hepatomegaly; fatty liver; right pleural effusion) Problem List - Problems (1) Anxiety 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 Code(s): F41.0 - PANIC DISORDER [EPISODIC PAROXYSMAL ANXIETY] (2) CAD (coronary artery disease) Code(s): I25.10 - ATHSCL HEART DISEASE OF [place] CORONARY ARTERY W/O ANG PCTRS (3) COPD bronchitis Code(s): J44.9 - CHRONIC OBSTRUCTIVE PULMONARY DISEASE, UNSPECIFIED (4) Diabetes Code(s): E11.9 - TYPE 2 DIABETES MELLITUS WITHOUT COMPLICATIONS (5) Hx of CABG Code(s): Z95.1 - PRESENCE OF AORTOCORONARY BYPASS GRAFT (6) Hyperlipidemia Code(s): E78.5 - HYPERLIPIDEMIA, UNSPECIFIED (7) Hypertension Code(s): I10 - ESSENTIAL (PRIMARY) HYPERTENSION (8) Hypothyroidism Code(s): E03.9 - HYPOTHYROIDISM, UNSPECIFIED (9) ICD (implantable cardioverter-defibrillator) in place Assessment/Plan: Pt reports no shocks. Code(s): Z95.810 - PRESENCE OF AUTOMATIC (IMPLANTABLE) CARDIAC DEFIBRILLATOR (10) Sleep apnea in adult Code(s): G47.33 - OBSTRUCTIVE SLEEP APNEA (ADULT) (PEDIATRIC) (11) Valvular heart disease Code(s): I38 - ENDOCARDITIS, VALVE UNSPECIFIED (12) Acute on chronic systolic and diastolic heart failure, NYHA class 4 Assessment/Plan: Now off dopamine (given for hypotension and transient anuria). Restarted metoprolol (systolic CHF; PAF); increase dosage gradually as BP allows. Periods of hypotension and hyperkalemia make ACEI or Aldactone problematic; restart low-dose ACEI or ARB cautiously if BP and electrolytes allow when possible. On furosemide (may require IV initially). Code(s): I50.43 - ACUTE ON CHRONIC COMBINED SYSTOLIC AND DIASTOLIC HRT FAIL (13) Aortic valve replaced Code(s): Z95.2 - PRESENCE OF PROSTHETIC HEART VALVE (14) Fatty liver Assessment/Plan: hepatomegaly; fatty liver. F/u with GI. Code(s): K76.0 - FATTY (CHANGE OF) LIVER, NOT ELSEWHERE CLASSIFIED
[2017-01-19] MEDS ORDERED: SODIUM CHLORIDE NASAL SPRAY 44 ML BOTTLE NS PRN (19:37)
[2017-01-19] MEDS: ZOCOR PO SCH (22:10)
[2017-01-19] MEDS: LIDOCAINE PATCH REMOVAL MC SCH (22:12)
[2017-01-19] MEDS: METHYL SALICYLATE/MENTHOL OINT 30 GM TUBE TP SCH (22:13)
[2017-01-20 06:07] LABS: MCH 27.1 pg (25.7-33.7); MCHC 33.6 g/dl (32.0-36.0); MEAN CELL VOLUME 80.8 fl (80-96); MEAN PLT VOLUME 8.7 fl (7.5-11.1); PLATELET COUNT 373 K/MM3 (134-434); RDW 15.5 % (11.6-15.6); WHITE BLOOD COUNT 10.2 K/mm3 (4.0-10.0)
[2017-01-20] MEDS: HEPARIN NA (PORCINE) 5,000 UNITS/ML 1ML VIAL SQ SCH ×3 (06:15→23:09)
[2017-01-20] MEDS: LEVOTHYROXINE NA 75 MCG TABLET (FP) PO SCH (06:16)
[2017-01-20 06:35] LABS: ALBUMIN 2.5 g/dl (3.4-5.0); ANION GAP 9 (8-16); CALCIUM 8.7 mg/dL (8.5-10.1); CO2 35 mmol/L (21-32); GLUCOSE,RANDOM 83 mg/dL (74-106); MAGNESIUM 2.6 mg/dL (1.8-2.4)
[2017-01-20 06:39] LABS: ALK PHOS 210 U/L (45-117); BILIRUBIN,TOTAL 0.5 mg/dL (0.2-1.0); CREATININE 0.7 mg/dL (0.55-1.02); SGOT/AST 147 U/L (15-37); SGPT/ALT 172 U/L (12-78); TOT PROT 5.8 g/dl (6.4-8.2)
[2017-01-20] MEDS ORDERED: PT OWN MED DRAWER 7, Y5N ONE ×3 (09:07→22:19)
[2017-01-20] MEDS: ASPIRIN 81 MG CHEWABLE TABLETS PO SCH (09:11)
[2017-01-20] MEDS: METOPROLOL TARTRATE 25 MG TABLET (FP) PO SCH ×2 (09:12→23:14)
[2017-01-20] MEDS: LIDOCAINE 5% TOPICAL PATCH TP SCH (09:12)
[2017-01-20] MEDS: METHYL SALICYLATE/MENTHOL OINT 30 GM TUBE TP SCH (09:12)
[2017-01-20] MEDS: CLOPIDOGREL BISULFATE 75 MG TABLET (FP) PO SCH (09:13)
[2017-01-20] MEDS: TIOTROPIUM BROMIDE 18 MCG/INH (DEVICE W/ 5 CAPSULES) IH SCH (09:13)
[2017-01-20] MEDS: BUDESONIDE/FORMETEROL FUMARATE 80/4.5 mcg INHALER IH SCH ×2 (09:14→23:10)
[2017-01-20] MEDS: ALPRAZolam 0.25 MG TABLET PO SCH ×2 (09:14→23:09)
--- NOTE | 2017-01-20 13:45 | PN ---
Progress Note, Physician History of Present Illness: Pt seen and examined at bedside. She says she is feeling better today. She remains in tele. She denies chest pain or palpitations. - Current Medication List Current Medications: Active Medications Alprazolam (Xanax -) 0.25 mg PO BID [facility] Last Admin: 01/20/17 09:14 Dose: 0.25 mg Aspirin (Asa -) 81 mg PO DAILY [facility] Last Admin: 01/20/17 09:11 Dose: 81 mg Budesonide/Formoterol Fumarate (Symbicort 80/4.5mcg -) 1 puff IH BID [facility] Last Admin: 01/20/17 09:14 Dose: 1 puff Clopidogrel Bisulfate (Plavix -) 75 mg PO DAILY [facility] Last Admin: 01/20/17 09:13 Dose: 75 mg Heparin Sodium (Porcine) (Heparin -) 5,000 unit SQ TID [facility] Last Admin: 01/20/17 13:02 Dose: 5,000 unit Levothyroxine Sodium (Synthroid -) 75 mcg PO DAILY@0700 [facility] Last Admin: 01/20/17 06:16 Dose: 75 mcg Lidocaine (Lidoderm Patch -) 1 patch TP DAILY [facility] Last Admin: 01/20/17 09:12 Dose: 1 patch Methyl Salicylate (Malick-Stewart -) 1 applic TP DAILY [facility] Last Admin: 01/20/17 09:12 Dose: 1 applic Metoclopramide HCl (Reglan Injection -) 10 mg IVPB Q6H PRN PRN Reason: NAUSEA AND/OR VOMITING Metoprolol Tartrate (Lopressor -) 12.5 mg PO BID [facility] Last Admin: 01/20/17 09:12 Dose: 12.5 mg Miscellaneous (Lidoderm Patch Removal) 1 each MC DAILY@2200 [facility] Last Admin: 01/19/17 22:12 Dose: 1 each Zocor -Patient's Own (Medication (Nf)) 1 each PO HS [facility] Last Admin: 01/19/17 22:10 Dose: 1 each Oxycodone HCl (Roxicodone -) 10 mg PO Q6H PRN PRN Reason: PAIN LEVEL 6-10 Last Admin: 01/20/17 09:10 Dose: 10 mg Oxycodone HCl (Roxicodone -) 5 mg PO Q6H PRN PRN Reason: PAIN LEVEL 1-5 Last Admin: 01/19/17 19:39 Dose: 5 mg Sodium Chloride ([place]al [place] -) 2 spray NS DAILY PRN PRN Reason: NASAL CONGESTION Last Admin: 01/20/17 06:16 Dose: 2 sprays Tiotropium [place] (Spiriva -) 1 puff IH DAILY [facility] Last Admin: 01/20/17 09:13 Dose: 1 puff - Objective Vital Signs: Vital Signs Temperature 97.3 F L 01/20/17 11:57 Pulse Rate 104 H 01/20/17 13:07 Respiratory Rate 18 01/20/17 13:07 Blood Pressure 105/85 01/20/17 13:07 O2 Sat by Pulse Oximetry (%) 96 01/20/17 07:50 Constitutional: Yes: Calm Eyes: Yes: Conjunctiva Clear HENT: Yes: Atraumatic Neck: Yes: Supple Cardiovascular: Yes: S1, S2 Respiratory: Yes: On Nasal O2 Gastrointestinal: Yes: Soft Genitourinary: Yes: WNL Musculoskeletal: Yes: WNL Edema: Yes Edema: LLE: Trace, RLE: Trace Neurological: Yes: Oriented Psychiatric: Yes: Oriented Labs: CBC, BMP 01/20/17 05:55 01/20/17 05:55 INR, PTT INR 1.12 (0.82-1.09) 01/12/17 15:45 - ....Imaging Chest X-ray: Report Reviewed Problem List - Problems (1) Hypokalemia Code(s): E87.6 - HYPOKALEMIA (2) Hyponatremia Code(s): E87.1 - HYPO-OSMOLALITY AND HYPONATREMIA (3) UTI (urinary tract infection) Code(s): N39.0 - URINARY TRACT INFECTION, SITE NOT SPECIFIED Qualifiers: Urinary tract infection type: site unspecified Hematuria presence: without hematuria Qualified Code(s): N39.0 - Urinary tract infection, site not specified; N39.0 - Urinary tract infection, site not specified; R31.9 - Hematuria, unspecified; R31.9 - Hematuria, unspecified (4) Acute on chronic systolic CHF (congestive heart failure) Code(s): I50.23 - ACUTE ON CHRONIC SYSTOLIC (CONGESTIVE) HEART FAILURE (5) COPD (chronic obstructive pulmonary disease) Code(s): J44.9 - CHRONIC OBSTRUCTIVE PULMONARY DISEASE, UNSPECIFIED Assessment/Plan Current Medications Generic Name Dose Route Start Last Admin Trade Name Freq PRN Reason Stop Dose Admin Alprazolam 0.25 mg 01/18/17 22:00 01/20/17 09:14 Xanax - PO 0.25 mg BID [facility] Administration Aspirin 81 mg 01/19/17 10:00 01/20/17 09:11 Asa - PO 81 mg DAILY [facility] Administration Budesonide/Formoterol Fumarate 1 puff 01/18/17 22:00 01/20/17 09:14 Symbicort 80/4.5mcg - IH 1 puff BID [facility] Administration Clopidogrel Bisulfate 75 mg 01/19/17 10:00 01/20/17 09:13 Plavix - PO 75 mg DAILY [facility] Administration Heparin Sodium (Porcine) 5,000 unit 01/18/17 22:00 01/20/17 13:02 Heparin - SQ 5,000 unit TID [facility] Administration Levothyroxine Sodium 75 mcg 01/19/17 07:00 01/20/17 06:16 Synthroid - PO 75 mcg DAILY@0700 [facility] Administration Lidocaine 1 patch 01/19/17 10:00 01/20/17 09:12 Lidoderm Patch - TP 1 patch DAILY [facility] Administration Methyl Salicylate 1 applic 01/19/17 16:15 01/20/17 09:12 Malick-Stewart - TP 1 applic DAILY [facility] Administration Metoclopramide HCl 10 mg 01/18/17 19:41 Reglan Injection - IVPB Q6H PRN NAUSEA AND/OR VOMITING Metoprolol Tartrate 12.5 mg 01/18/17 22:00 01/20/17 09:12 Lopressor - PO 12.5 mg BID [facility] Administration Miscellaneous 1 each 01/18/17 22:00 01/19/17 22:12 Lidoderm Patch Removal MC 1 each DAILY@2200 [facility] Administration Zocor -Patient's Own 1 each 01/18/17 22:00 01/19/17 22:10 Medication (Nf) PO 1 each HS [facility] Administration Oxycodone HCl 10 mg 01/18/17 19:41 01/20/17 09:10 Roxicodone - PO 10 mg Q6H PRN Administration PAIN LEVEL 6-10 Oxycodone HCl 5 mg 01/18/17 19:41 01/19/17 19:39 Roxicodone - PO 5 mg Q6H PRN Administration PAIN LEVEL 1-5 Sodium Chloride 2 spray 01/19/17 19:37 01/20/17 06:16 [place] Nasal [place] - NS 2 sprays DAILY PRN Administration NASAL CONGESTION Tiotropium [place] 1 puff 01/19/17 10:00 01/20/17 09:13 Spiriva - IH 1 puff DAILY [facility] Administration 1. UTI 2. hyponatremia 3. paralyzed hemidiaphragm 4. HTN 5. valvular heart disease 6. azotemia 7. hypothyroid 8. CAD 9. hypokalemia 10. alkalosis 11. transaminitis 12. anxiety 13. CHF Plan - reviewed cxr - called and discussed care with cardio - will give 40 mg of lasix today - repeat labs in am - follow LFTs, GI eval - keep on tele monitor - will follow Dr Bella
[2017-01-20] MEDS ORDERED: FUROSEMIDE 40 MG TABLET (FP) PO ONE (14:00)
--- NOTE | 2017-01-20 15:30 | PN ---
Progress Note (short form) - Note Progress Note: Subjective: The patient was seen and examined at the bedside, she reports feeling better today, however is concerned about her lower extremity edema. Chest x-ray with no change from previous Lasix 40mg given today Current Medications Generic Name Dose Route Start Last Admin Trade Name Freq PRN Reason Stop Dose Admin Alprazolam 0.25 mg 01/18/17 22:00 01/20/17 09:14 Xanax - PO 0.25 mg BID MAGO Administration Aspirin 81 mg 01/19/17 10:00 01/20/17 09:11 Asa - PO 81 mg DAILY MAGO Administration Budesonide/Formoterol Fumarate 1 puff 01/18/17 22:00 01/20/17 09:14 Symbicort 80/4.5mcg - IH 1 puff BID MAGO Administration Clopidogrel Bisulfate 75 mg 01/19/17 10:00 01/20/17 09:13 Plavix - PO 75 mg DAILY MAGO Administration Heparin Sodium (Porcine) 5,000 unit 01/18/17 22:00 01/20/17 13:02 Heparin - SQ 5,000 unit TID MAGO Administration Levothyroxine Sodium 75 mcg 01/19/17 07:00 01/20/17 06:16 Synthroid - PO 75 mcg DAILY@0700 MAGO Administration Lidocaine 1 patch 01/19/17 10:00 01/20/17 09:12 Lidoderm Patch - TP 1 patch DAILY MAGO Administration Methyl Salicylate 1 applic 01/19/17 16:15 01/20/17 09:12 Malick-Stewart - TP 1 applic DAILY MAGO Administration Metoclopramide HCl 10 mg 01/18/17 19:41 Reglan Injection - IVPB Q6H PRN NAUSEA AND/OR VOMITING Metoprolol Tartrate 12.5 mg 01/18/17 22:00 01/20/17 09:12 Lopressor - PO 12.5 mg BID MAGO Administration Miscellaneous 1 each 01/18/17 22:00 01/19/17 22:12 Lidoderm Patch Removal MC 1 each DAILY@2200 MAGO Administration Zocor -Patient's Own 1 each 01/18/17 22:00 01/19/17 22:10 Medication (Nf) PO 1 each HS MAGO Administration Oxycodone HCl 10 mg 01/18/17 19:41 01/20/17 09:10 Roxicodone - PO 10 mg Q6H PRN Administration PAIN LEVEL 6-10 Oxycodone HCl 5 mg 01/18/17 19:41 01/19/17 19:39 Roxicodone - PO 5 mg Q6H PRN Administration PAIN LEVEL 1-5 Sodium Chloride 2 spray 01/19/17 19:37 01/20/17 06:16 [place] Nasal [place] - NS 2 sprays DAILY PRN Administration NASAL CONGESTION Tiotropium [place] 1 puff 01/19/17 10:00 01/20/17 09:13 Spiriva - IH 1 puff DAILY MAGO Administration Objective: Vital Signs Period Temp Pulse Resp BP Sys/[place] Pulse Ox Last 24 Hr 97.3 F-98.2 F 89-104 16-23 85-106/31-85 92-96 Physical Exam: General: NAD, A&Ox3 Lungs: CTA bilaterally Heart: RRR, S1S2 Abd: Soft, non-tender, non-distended. Normoactive bowel sounds Ext: B/l lower extremities with no edema CBCD WBC 10.2 K/mm3 (4.0-10.0) H 01/20/17 05:55 RBC 3.65 M/mm3 (3.60-5.2) 01/20/17 05:55 Hgb 9.9 GM/dL (10.7-15.3) L 01/20/17 05:55 Hct 29.5 % (32.4-45.2) L 01/20/17 05:55 MCV 80.8 fl (80-96) 01/20/17 05:55 MCHC 33.6 g/dl (32.0-36.0) 01/20/17 05:55 RDW 15.5 % (11.6-15.6) 01/20/17 05:55 Plt Count 373 K/MM3 (134-434) 01/20/17 05:55 MPV 8.7 fl (7.5-11.1) 01/20/17 05:55 CMP Sodium 127 mmol/L (136-145) L 01/20/17 05:55 Potassium 4.8 mmol/L (3.5-5.1) 01/20/17 05:55 Chloride 83 mmol/L (98-107) L 01/20/17 05:55 Carbon Dioxide 35 mmol/L (21-32) H 01/20/17 05:55 Anion Gap 9 (8-16) 01/20/17 05:55 BUN 43 mg/dL (7-18) H 01/20/17 05:55 Creatinine 0.7 mg/dL (0.55-1.02) 01/20/17 05:55 Creat Clearance w eGFR > 60 (>60) 01/20/17 05:55 Random Glucose 83 mg/dL (74-106) 01/20/17 05:55 Calcium 8.7 mg/dL (8.5-10.1) 01/20/17 05:55 Total Bilirubin 0.5 mg/dL (0.2-1.0) 01/20/17 05:55 AST 147 U/L (15-37) H D 01/20/17 05:55 ALT 172 U/L (12-78) H 01/20/17 05:55 Alkaline Phosphatase 210 U/L (45-117) H D 01/20/17 05:55 Total Protein 5.8 g/dl (6.4-8.2) L 01/20/17 05:55 Albumin 2.5 g/dl (3.4-5.0) L 01/20/17 05:55 CARDIAC ENZYMES Creatine Kinase 29 IU/L (26-192) 01/12/17 15:45 Troponin I 0.03 ng/ml (0.00-0.05) 01/12/17 15:45 Microbiology 01/12/17 20:50 Blood - Peripheral Venous Blood Culture - Final NO GROWTH AFTER 5 DAYS INCUBATION 01/12/17 20:50 Blood - Peripheral Venous Blood Culture - Final NO GROWTH AFTER 5 DAYS INCUBATION 01/14/17 15:00 Urine - Urine [place] Urine Culture - Final NO GROWTH OBTAINED 01/12/17 15:45 Urine - Urine Clean Catch Urine Culture - Final Contaminated: Please Repeat Assessment: This is an 81 year old female with PMHx of HTN, hyperlipidemia, CAD s/p CABG, AVR, severe LV systolic dysfunction s/p Bi-V ICD, combined systolic and diastolic heart failure, hypothyroidism, who presented to the ED with dysuria, right flank pain Plan: 1) Cardiology: Cardiogenic shock, acute on chronic systolic and diastolic heart failure, severe LV systolic dysfunction - Shock resolved, maintaining MAP off dopamine - Chest X-ray today with no significant change from previous - Lasix 40mg po given today - Continue Lopressor bid - ECHO reviewed - Appreciate cardiology consult HTN - As above Hyperlipidemia - Continue Zocor CAD s/p CABG AVR - Continue ASA - Continue Plavix Ventricular tachycardia - 36 beats on 01/14 - No ICD shock 2) GI: Transaminitis - Liver ultrasound with hepatomegaly and diffuse fatty infiltration of the liver - Hepatitis panel negative - AST/ALT trending down, alk phos up slightly - Continue to trend - F/u GI consult 3) ID: Suspected sepsis 2/2 UTI - Urine culture negative - Off all abx 4) : BETTIE - Resolved 5) Endocrine: Hypothyroidism - Continue Synthroid 6) F/E/N - Hyponatremia: likely hypervolemic hyponatremia - Sodium controlled diet 7) Prophylaxis: - Heparin 5,000u sq tid 8) Dispo: - Requires continued inpatient care CODE STATUS: FULL CODE Visit type - Emergency Visit Emergency Visit: Yes ED Registration Date: 01/12/17 Care time: The patient presented to the Emergency Department on the above date and was hospitalized for further evaluation of their emergent condition. - New Patient This patient is new to me today: No - Critical Care Critical Care patient: No
--- NOTE | 2017-01-20 15:43 | CON.GI ---
Consult Consult Specialty:: GI Referred by:: Stepdown Team Reason for Consultation:: transaminitis with elevated ALP - History of Present Illness History of Present Illness: Chart reviewed, events noted. An 81 yo female with extensive cardiac history admitted with urosepsis and shock. Recovering nicely. Noted to have acute, mild elevation in transaminases and ALP few days ago. ALT and ALP became abnormal on , AST on . The only new medication that were started 2-3 days ago were oxycodone and lidocane patch (confirmed with pharmacy). The patent runs chronically low BP. There were no significant BP anomalies 2-3 days ago. One episode of bradycardia (50s) on . Afebrile, no significant changes in WBC. Not in florid CHF according to records. Asymptomatic from GI/hepatology point. Offers no complaints. Has no history of liver disease, viral, or autoimmune hepatitis. No family history of the same. Denies ETOH, chronic NSAIDs. S/p Cholesystectomy and a recent RUQ US shows fatty liver. - History Source History Provided By: Patient, Medical Record Limitations to Obtaining History: No Limitations - Past Medical History Cardio/Vascular: Yes: AFIB, Aortic Stenosis (s/p AVR), CAD, CHF (Chronic combined systolic/diastolic HF), HTN, Hyperlipdemia, Murmur, Other (aortic valve replacement) Pulmonary: Yes: COPD, Other (paralyzed diaghragm) Gastrointestinal: Yes: Diverticulosis. No: GI Bleed, Inflamatory Bowel Disease , Pancreatitis, Peptic Ulcer Disease, Ulcerative Colitis Hepatobiliary: Yes: Cholecystitis. No: Cirrhosis, Hepatitis A, Hepatitis B, Hepatitis C Renal/: Yes: UTI Heme/Onc: No: Bleeding Disorder Psych: Yes: Anxiety, Depression, Panic Musculoskeletal: Yes: Chronic low back pain Endocrine: Yes: Hypothyroidism - Past Surgical History Past Surgical History: Yes: Appendectomy, CABG, Cholecystectomy, , Hysterectomy, Valve Replacement (AVR) - Alcohol/Substance Use Hx Alcohol Use: No History of Substance Use: reports: None - Smoking History Smoking history: Never smoked Have you smoked in the past 12 months: No Aproximately how many cigarettes per day: 0 If you are a former smoker, when did you quit?: 21 YRS - Social History Usual Living Arrangement: With Spouse ADL: Independent History of Recent Travel: No Home Medications - Allergies Allergies/Adverse Reactions: Allergies Allergy/AdvReac Type Severity Reaction Status Date / Time albuterol Allergy Hives Verified 01/12/17 14:59 ciprofloxacin Allergy Rash Verified 01/12/17 14:59 clindamycin Allergy Hives Verified 01/12/17 14:59 lactose [Lactose] Allergy Nausea Verified 01/12/17 14:59 levofloxacin [From Levaquin] Allergy Rash Verified 01/12/17 14:59 Penicillins Allergy Swelling Verified 01/12/17 14:59 Shellfish Allergy Difficulty Verified 01/12/17 14:59 Breathing Sulfa (Sulfonamide Allergy Rash Verified 01/12/17 14:59 Antibiotics) trimethobenzamide HCl Allergy Rash Verified 01/12/17 14:59 [From Tigan] atorvastatin calcium AdvReac Unknown "muscle Verified 01/12/17 14:59 [From Lipitor] weakness" morphine AdvReac Unknown blurred Verified 01/12/17 14:59 vision - Home Medications Home Medications: Ambulatory Orders Aspirin [ASA -] 81 mg PO DAILY 08/10/15 Budesonide/Formeterol Fumarate [SYMBICORT 80/4.5mcg -] 1 inh PO BID 08/10/15 Tiotropium [place] [Spiriva] 1 inh PO DAILY 08/10/15 Levothyroxine [Synthroid -] 75 mcg PO DAILY 09/16/15 Metoprolol Succinate [Toprol XL -] 25 mg PO BID #60 tab.sr.24h 09/24/15 Docusate Sodium [Colace -] 100 mg PO BID 11/06/15 Clopidogrel Bisulfate [Clopidogrel] 75 mg PO DAILY 03/18/16 Simvastatin [Zocor -] 40 mg PO HS 03/18/16 Spironolactone 12.5 mg PO BID 11/04/16 Lisinopril [Prinivil] 2.5 mg PO DAILY #60 tablet 11/09/16 Furosemide [Lasix -] 60 mg PO BID #60 tablet 12/06/16 Metolazone [Zaroxolyn -] 5 mg PO DAILY #30 tablet 12/06/16 Metolazone [Zaroxolyn -] 5 mg PO DAILY #30 tablet 12/06/16 Family Disease History - Family Disease History Family History: Unremarkable (non-contributory) Review of Systems - Review of Systems Gastrointestinal: denies: Abdominal Pain, Bloating, Dysphagia, Melena, Nausea, Rectal Bleeding, Vomiting, Vomiting Blood Physical Exam-GI Vital Signs: Vital Signs Temperature 97.3 F L 01/20/17 11:57 Pulse Rate 104 H 01/20/17 13:07 Respiratory Rate 18 01/20/17 13:07 Blood Pressure 105/85 01/20/17 13:07 O2 Sat by Pulse Oximetry (%) 96 01/20/17 07:50 Constitutional: Yes: Well Nourished, No Distress, Calm Eyes: Yes: Conjunctiva Clear HENT: Yes: Atraumatic Neck: Yes: Supple Cardiovascular: Yes: Regular Rate and Rhythm Respiratory: Yes: Rhonchi Gastrointestinal Inspection: No: Ascites, Distention ...Auscultate: Yes: Normoactive Bowel Sounds ...Palpate: Yes: Soft. No: Guarding, Hepatomegaly, Mass, Pulsatile Mass, Tenderness, Tenderness, Epigastium, Tenderness, Rebound Neurological: Yes: Alert, Oriented Labs: CBC, BMP 01/20/17 05:55 01/20/17 05:55 INR, PTT INR 1.12 (0.82-1.09) 01/12/17 15:45 Hepatic Panel Total Bilirubin 0.5 mg/dL (0.2-1.0) 01/20/17 05:55 AST 147 U/L (15-37) H D 01/20/17 05:55 ALT 172 U/L (12-78) H 01/20/17 05:55 Alkaline Phosphatase 210 U/L (45-117) H D 01/20/17 05:55 Albumin 2.5 g/dl (3.4-5.0) L 01/20/17 05:55 Current Medications Generic Name Dose Route Start Last Admin Trade Name Freq PRN Reason Stop Dose Admin Alprazolam 0.25 mg 01/18/17 22:00 01/20/17 09:14 Xanax - PO 0.25 mg BID MAGO Administration Aspirin 81 mg 01/19/17 10:00 01/20/17 09:11 Asa - PO 81 mg DAILY MAGO Administration Budesonide/Formoterol Fumarate 1 puff 01/18/17 22:00 01/20/17 09:14 Symbicort 80/4.5mcg - IH 1 puff BID MAGO Administration Clopidogrel Bisulfate 75 mg 01/19/17 10:00 01/20/17 09:13 Plavix - PO 75 mg DAILY MAGO Administration Heparin Sodium (Porcine) 5,000 unit 01/18/17 22:00 01/20/17 13:02 Heparin - SQ 5,000 unit TID MAGO Administration Levothyroxine Sodium 75 mcg 01/19/17 07:00 01/20/17 06:16 Synthroid - PO 75 mcg DAILY@0700 MAGO Administration Lidocaine 1 patch 01/19/17 10:00 01/20/17 09:12 Lidoderm Patch - TP 1 patch DAILY MAGO Administration Methyl Salicylate 1 applic 01/19/17 16:15 01/20/17 09:12 Malick-Stewart - TP 1 applic DAILY MAGO Administration Metoclopramide HCl 10 mg 01/18/17 19:41 Reglan Injection - IVPB Q6H PRN NAUSEA AND/OR VOMITING Metoprolol Tartrate 12.5 mg 01/18/17 22:00 01/20/17 09:12 Lopressor - PO 12.5 mg BID MAGO Administration Miscellaneous 1 each 01/18/17 22:00 01/19/17 22:12 Lidoderm Patch Removal MC 1 each DAILY@2200 MAGO Administration Zocor -Patient's Own 1 each 01/18/17 22:00 01/19/17 22:10 Medication (Nf) PO 1 each HS MAGO Administration Oxycodone HCl 10 mg 01/18/17 19:41 01/20/17 09:10 Roxicodone - PO 10 mg Q6H PRN Administration PAIN LEVEL 6-10 Oxycodone HCl 5 mg 01/18/17 19:41 01/19/17 19:39 Roxicodone - PO 5 mg Q6H PRN Administration PAIN LEVEL 1-5 Sodium Chloride 2 spray 01/19/17 19:37 01/20/17 06:16 [place] Nasal [place] - NS 2 sprays DAILY PRN Administration NASAL CONGESTION Tiotropium [place] 1 puff 01/19/17 10:00 01/20/17 09:13 Spiriva - IH 1 puff DAILY MAGO Administration Abnormal Lab Results 01/20/17 01/20/17 05:55 05:55 WBC 10.2 H Hgb 9.9 L Hct 29.5 L Sodium 127 L Chloride 83 L Carbon Dioxide 35 H BUN 43 H Magnesium 2.6 H AST 147 H D ALT 172 H Alkaline Phosphatase 210 H D Total Protein 5.8 L Albumin 2.5 L Microbiology 01/12/17 20:50 Blood - Peripheral Venous Blood Culture - Final NO GROWTH AFTER 5 DAYS INCUBATION 01/12/17 20:50 Blood - Peripheral Venous Blood Culture - Final NO GROWTH AFTER 5 DAYS INCUBATION 01/14/17 15:00 Urine - Urine [place] Urine Culture - Final NO GROWTH OBTAINED 01/12/17 15:45 Urine - Urine Clean Catch Urine Culture - Final Contaminated: Please Repeat Vital Signs (72 hours) 01/17/17 01/17/17 01/17/17 16:00 18:00 20:00 Temperature 98.3 F Pulse Rate 101 H 102 H 101 H Respiratory 22 22 24 Rate Blood Pressure 100/57 94/62 96/55 O2 Sat by Pulse Oximetry (%) 01/17/17 01/18/17 01/18/17 21:00 02:00 05:48 Temperature 97.6 F 98.2 F Pulse Rate 102 H 93 H 92 H Respiratory 22 22 22 Rate Blood Pressure 100/63 90/53 96/55 O2 Sat by Pulse 98 Oximetry (%) 01/18/17 01/18/17 01/18/17 08:00 09:00 10:10 Temperature 97.7 F Pulse Rate 92 H 90 Respiratory 22 22 22 Rate Blood Pressure 96/52 94/53 O2 Sat by Pulse Oximetry (%) 01/18/17 01/18/17 01/18/17 12:00 14:00 16:00 Temperature 97.5 F L Pulse Rate 90 89 108 H Respiratory 22 22 22 Rate Blood Pressure 90/49 101/81 107/84 O2 Sat by Pulse Oximetry (%) 01/18/17 01/18/17 01/19/17 20:20 21:00 01:00 Temperature 97.5 F L 97.7 F Pulse Rate 101 H 98 H Respiratory 22 22 22 Rate Blood Pressure 101/53 92/70 O2 Sat by Pulse 97 Oximetry (%) 01/19/17 01/19/17 01/19/17 05:30 09:00 09:29 Temperature Pulse Rate 98 H 107 H Respiratory 20 22 Rate Blood Pressure 106/67 100/63 O2 Sat by Pulse 99 99 Oximetry (%) 01/19/17 01/19/17 01/19/17 10:00 14:00 16:27 Temperature 97.6 F Pulse Rate 103 H 110 H Respiratory 22 Rate Blood Pressure 98/59 O2 Sat by Pulse 95 92 L Oximetry (%) 01/19/17 01/19/17 01/19/17 17:49 21:00 22:00 Temperature 97.3 F L Pulse Rate 94 H 104 H Respiratory 22 20 Rate Blood Pressure 94/62 104/64 O2 Sat by Pulse 95 Oximetry (%) 01/20/17 01/20/17 01/20/17 00:59 02:18 06:00 Temperature 98.2 F Pulse Rate 90 91 H 89 Respiratory 23 22 21 Rate Blood Pressure 93/54 85/31 102/64 O2 Sat by Pulse Oximetry (%) 01/20/17 01/20/17 01/20/17 07:49 07:50 09:23 Temperature Pulse Rate 94 H 96 H Respiratory 16 20 Rate Blood Pressure 86/64 106/76 O2 Sat by Pulse 96 Oximetry (%) 01/20/17 01/20/17 11:57 13:07 Temperature 97.3 F L Pulse Rate 100 H 104 H Respiratory 18 18 Rate Blood Pressure 100/70 105/85 O2 Sat by Pulse Oximetry (%) Imaging - Results Cat Scan: Report Reviewed Ultrasound: Report Reviewed Problem List - Problems (1) Elevated alkaline phosphatase level Assessment/Plan: Unclear etiology of acute, mild elevation of liver enzymes and ALP. An episode of bradycardia noted on . Newly started oxycodone and lidocane patch should not cause significant issues unless idiosyncratic reaction. The enzymes are trending down according to the last 2 sets of results. The patient is asymptomatic. Avoid NSAIDs and acetaminophen if possible Maintain adequate perfusion Daily hepatic enzymes. Will follow Code(s): R74.8 - ABNORMAL LEVELS OF OTHER SERUM ENZYMES (2) Transaminasemia Code(s): R74.0 - NONSPEC ELEV OF LEVELS OF TRANSAMNS & LACTIC ACID DEHYDRGNSE
[2017-01-20] MEDS: ZOCOR PO SCH (23:10)
[2017-01-20] MEDS: LIDOCAINE PATCH REMOVAL MC SCH (23:16)
[2017-01-20] MEDS: oxyCODONE HCL 5 MG TABLET PO PRN (23:18)
--- NOTE | 2017-01-21 00:42 | PN ---
Progress Note, Physician Chief Complaint: Pt A&Ox3; Pt feels "much better" no chest pain or dyspnea. pain in her neck and back have subsided, though still has stabbing pain there is she shifts too quickly while in bed. History of Present Illness: Ms. Hou is an 81 yo white woman with a significant past medical history of systolic CHF, CAD s/p [place]-->CABG, bioprosthetic AoVR, and ICD; HTN, hyperlipidemia, overweight, anxiety/depression, who presents with significant abdominal discomfort after trial of oral antibiotics for UTI. PCP called to alert of presentation to ER, ID consulted as patient has extensive allergies to medication. The patient denies chest pain, shortness of breath, headache and dizziness. Denies fever, chills, nausea, vomit, diarrhea and constipation. Reports her dysuria has decreased but is not gone, still has frequency and urgency. - Current Medication List Current Medications: Active Medications Alprazolam (Xanax -) 0.25 mg PO BID [facility] Last Admin: 01/20/17 23:09 Dose: 0.25 mg Aspirin (Asa -) 81 mg PO DAILY [facility] Last Admin: 01/20/17 09:11 Dose: 81 mg Budesonide/Formoterol Fumarate (Symbicort 80/4.5mcg -) 1 puff IH BID [facility] Last Admin: 01/20/17 23:10 Dose: 1 puff Clopidogrel Bisulfate (Plavix -) 75 mg PO DAILY [facility] Last Admin: 01/20/17 09:13 Dose: 75 mg Heparin Sodium (Porcine) (Heparin -) 5,000 unit SQ TID [facility] Last Admin: 01/20/17 23:09 Dose: 5,000 unit Levothyroxine Sodium (Synthroid -) 75 mcg PO DAILY@0700 [facility] Last Admin: 01/20/17 06:16 Dose: 75 mcg Lidocaine (Lidoderm Patch -) 1 patch TP DAILY [facility] Last Admin: 01/20/17 09:12 Dose: 1 patch Methyl Salicylate ([place]ick-Stewart -) 1 applic TP DAILY [facility] Last Admin: 01/20/17 09:12 Dose: 1 applic Metoclopramide HCl (Reglan Injection -) 10 mg IVPB Q6H PRN PRN Reason: NAUSEA AND/OR VOMITING Metoprolol Tartrate (Lopressor -) 12.5 mg PO BID [facility] Last Admin: 01/20/17 23:14 Dose: 12.5 mg Miscellaneous (Lidoderm Patch Removal) 1 each MC DAILY@2200 [facility] Last Admin: 01/20/17 23:16 Dose: 1 each Zocor -Patient's Own (Medication (Nf)) 1 each PO HS [facility] Last Admin: 01/20/17 23:10 Dose: 1 each Oxycodone HCl (Roxicodone -) 10 mg PO Q6H PRN PRN Reason: PAIN LEVEL 6-10 Last Admin: 01/20/17 09:10 Dose: 10 mg Oxycodone HCl (Roxicodone -) 5 mg PO Q6H PRN PRN Reason: PAIN LEVEL 1-5 Last Admin: 01/20/17 23:18 Dose: 5 mg Sodium Chloride ([place] Nasal [place] -) 2 spray NS DAILY PRN PRN Reason: NASAL CONGESTION Last Admin: 01/20/17 06:16 Dose: 2 sprays Tiotropium [place] (Spiriva -) 1 puff IH DAILY [facility] Last Admin: 01/20/17 09:13 Dose: 1 puff - Objective Vital Signs: Vital Signs Temperature 98.4 F 01/20/17 23:22 Pulse Rate 102 H 01/20/17 23:22 Respiratory Rate 22 01/20/17 23:22 Blood Pressure 106/59 01/20/17 23:22 O2 Sat by Pulse Oximetry (%) 96 01/20/17 20:40 Constitutional: Yes: Calm Eyes: Yes: WNL HENT: Yes: WNL Neck: Yes: WNL Cardiovascular: Yes: Pulse Irregular Respiratory: Yes: Regular, Diminished (right base) Gastrointestinal: Yes: Soft ...Rectal Exam: Yes: Deferred Genitourinary: No: Anuria Musculoskeletal: Yes: Muscle Weakness Extremities: Yes: Cool Edema: No Peripheral Pulses WNL: No Peripheral Pulses: Left Doralis Pedis: 1+, Right Dorsalis Pedis: 1+ Integumentary: Yes: WNL Neurological: Yes: Alert, Oriented, Weakness Psychiatric: Yes: Alert, Oriented Labs: CBC, BMP 01/20/17 05:55 01/20/17 05:55 INR, PTT INR 1.12 (0.82-1.09) 01/12/17 15:45 Abnormal Lab Results 01/20/17 01/20/17 05:55 05:55 WBC 10.2 H Hgb 9.9 L Hct 29.5 L Sodium 127 L Chloride 83 L Carbon Dioxide 35 H BUN 43 H Magnesium 2.6 H AST 147 H D ALT 172 H Alkaline Phosphatase 210 H D Total Protein 5.8 L Albumin 2.5 L - ....Imaging Chest X-ray: Image Reviewed (no significant change (rt pleural effusion; pulmonary vascular congestion).) Other: Image Reviewed (telemetry: AV pacing; LBBB; no further significant NSVT) Problem List - Problems (1) Anxiety 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 Assessment/Plan: On medications; psychologist may be of benefit. Code(s): F41.0 - PANIC DISORDER [EPISODIC PAROXYSMAL ANXIETY] (2) CAD (coronary artery disease) Code(s): I25.10 - ATHSCL HEART DISEASE OF [place] CORONARY ARTERY W/O ANG PCTRS (3) COPD bronchitis Code(s): J44.9 - CHRONIC OBSTRUCTIVE PULMONARY DISEASE, UNSPECIFIED (4) Diabetes Code(s): E11.9 - TYPE 2 DIABETES MELLITUS WITHOUT COMPLICATIONS (5) Hx of CABG Code(s): Z95.1 - PRESENCE OF AORTOCORONARY BYPASS GRAFT (6) Hyperlipidemia Code(s): E78.5 - HYPERLIPIDEMIA, UNSPECIFIED (7) Hypertension Code(s): I10 - ESSENTIAL (PRIMARY) HYPERTENSION (8) Hypothyroidism Code(s): E03.9 - HYPOTHYROIDISM, UNSPECIFIED (9) ICD (implantable cardioverter-defibrillator) in place Assessment/Plan: Pt reports no shocks. Code(s): Z95.810 - PRESENCE OF AUTOMATIC (IMPLANTABLE) CARDIAC DEFIBRILLATOR (10) Sleep apnea in adult Code(s): G47.33 - OBSTRUCTIVE SLEEP APNEA (ADULT) (PEDIATRIC) (11) Valvular heart disease Code(s): I38 - ENDOCARDITIS, VALVE UNSPECIFIED (12) Acute on chronic systolic and diastolic heart failure, NYHA class 4 Assessment/Plan: Now off dopamine (given for hypotension and transient anuria). Restarted metoprolol (systolic CHF; PAF); increase dosage gradually as BP allows. Periods of hypotension and hyperkalemia make ACEI or Aldactone problematic; restart low-dose ACEI or ARB cautiously if BP and electrolytes allow when possible. On furosemide. Is and Os, daily weight; BUN/Cr; electrolytes. Code(s): I50.43 - ACUTE ON CHRONIC COMBINED SYSTOLIC AND DIASTOLIC HRT FAIL (13) Aortic valve replaced Code(s): Z95.2 - PRESENCE OF PROSTHETIC HEART VALVE (14) Fatty liver Assessment/Plan: hepatomegaly; fatty liver. F/u with GI. Code(s): K76.0 - FATTY (CHANGE OF) LIVER, NOT ELSEWHERE CLASSIFIED
[2017-01-21 06:36] LABS: ALBUMIN 2.5 g/dl (3.4-5.0); ANION GAP 9 (8-16); BILIRUBIN,TOTAL 0.6 mg/dL (0.2-1.0); CALCIUM 8.6 mg/dL (8.5-10.1); CO2 33 mmol/L (21-32); CREATININE 0.8 mg/dL (0.55-1.02); GLUCOSE,RANDOM 92 mg/dL (74-106); SGOT/AST 275 U/L (15-37); SGPT/ALT 260 U/L (12-78)
[2017-01-21 06:37] LABS: ALK PHOS 254 U/L (45-117)
[2017-01-21] MEDS: LEVOTHYROXINE NA 75 MCG TABLET (FP) PO SCH (06:37)
[2017-01-21] MEDS: HEPARIN NA (PORCINE) 5,000 UNITS/ML 1ML VIAL SQ SCH ×3 (06:41→22:04)
--- NOTE | 2017-01-21 08:50 | PN ---
Progress Note, Physician Chief Complaint: comfortable TELE: Paced, short 3-4 beat run NSVT - Current Medication List Current Medications: Active Medications Alprazolam (Xanax -) 0.25 mg PO BID [facility] Last Admin: 01/20/17 23:09 Dose: 0.25 mg Aspirin (Asa -) 81 mg PO DAILY [facility] Last Admin: 01/20/17 09:11 Dose: 81 mg Budesonide/Formoterol Fumarate (Symbicort 80/4.5mcg -) 1 puff IH BID [facility] Last Admin: 01/20/17 23:10 Dose: 1 puff Clopidogrel Bisulfate (Plavix -) 75 mg PO DAILY [facility] Last Admin: 01/20/17 09:13 Dose: 75 mg Heparin Sodium (Porcine) (Heparin -) 5,000 unit SQ TID [facility] Last Admin: 01/21/17 06:41 Dose: 5,000 unit Levothyroxine Sodium (Synthroid -) 75 mcg PO DAILY@0700 [facility] Last Admin: 01/21/17 06:37 Dose: 75 mcg Lidocaine (Lidoderm Patch -) 1 patch TP DAILY [facility] Last Admin: 01/20/17 09:12 Dose: 1 patch Methyl Salicylate (Malick-Stewart -) 1 applic TP DAILY [facility] Last Admin: 01/20/17 09:12 Dose: 1 applic Metoclopramide HCl (Reglan Injection -) 10 mg IVPB Q6H PRN PRN Reason: NAUSEA AND/OR VOMITING Metoprolol Tartrate (Lopressor -) 12.5 mg PO BID [facility] Last Admin: 01/20/17 23:14 Dose: 12.5 mg Miscellaneous (Lidoderm Patch Removal) 1 each MC DAILY@2200 [facility] Last Admin: 01/20/17 23:16 Dose: 1 each Zocor -Patient's Own (Medication (Nf)) 1 each PO HS [facility] Last Admin: 01/20/17 23:10 Dose: 1 each Oxycodone HCl (Roxicodone -) 10 mg PO Q6H PRN PRN Reason: PAIN LEVEL 6-10 Last Admin: 01/20/17 09:10 Dose: 10 mg Oxycodone HCl (Roxicodone -) 5 mg PO Q6H PRN PRN Reason: PAIN LEVEL 1-5 Last Admin: 01/20/17 23:18 Dose: 5 mg Sodium Chloride ([place] Nasal [place] -) 2 spray NS DAILY PRN PRN Reason: NASAL CONGESTION Last Admin: 01/20/17 06:16 Dose: 2 sprays Tiotropium [place] (Spiriva -) 1 puff IH DAILY [facility] Last Admin: 01/20/17 09:13 Dose: 1 puff - Objective Vital Signs: Vital Signs Temperature 97.8 F 01/21/17 06:00 Pulse Rate 95 H 01/21/17 06:00 Respiratory Rate 22 01/21/17 06:00 Blood Pressure 95/47 01/21/17 06:00 O2 Sat by Pulse Oximetry (%) 96 01/20/17 20:40 Constitutional: Yes: Calm Eyes: Yes: Conjunctiva Clear Cardiovascular: Yes: Pulse Irregular Respiratory: Yes: Other (scattered rhonchi. No wheezing) Gastrointestinal: Yes: Soft Edema: No Neurological: Yes: Alert, Oriented Labs: CBC, BMP 01/20/17 05:55 01/21/17 05:10 INR, PTT INR 1.12 (0.82-1.09) 01/12/17 15:45 - ....Imaging EKG: Image Reviewed Assessment/Plan Problem List - Problems (1) Anxiety 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 Assessment/Plan: On medications; psychologist may be of benefit. Code(s): F41.0 - PANIC DISORDER [EPISODIC PAROXYSMAL ANXIETY] (2) CAD (coronary artery disease) Code(s): I25.10 - ATHSCL HEART DISEASE OF [place] CORONARY ARTERY W/O ANG PCTRS (3) COPD bronchitis Code(s): J44.9 - CHRONIC OBSTRUCTIVE PULMONARY DISEASE, UNSPECIFIED (4) Diabetes Code(s): E11.9 - TYPE 2 DIABETES MELLITUS WITHOUT COMPLICATIONS (5) Hx of CABG Code(s): Z95.1 - PRESENCE OF AORTOCORONARY BYPASS GRAFT (6) Hyperlipidemia Code(s): E78.5 - HYPERLIPIDEMIA, UNSPECIFIED (7) Hypertension Code(s): I10 - ESSENTIAL (PRIMARY) HYPERTENSION (8) Hypothyroidism Code(s): E03.9 - HYPOTHYROIDISM, UNSPECIFIED (9) ICD (implantable cardioverter-defibrillator) in place Assessment/Plan: Pt reports no shocks. Code(s): Z95.810 - PRESENCE OF AUTOMATIC (IMPLANTABLE) CARDIAC DEFIBRILLATOR (10) Sleep apnea in adult Code(s): G47.33 - OBSTRUCTIVE SLEEP APNEA (ADULT) (PEDIATRIC) (11) Valvular heart disease Code(s): I38 - ENDOCARDITIS, VALVE UNSPECIFIED (12) Acute on chronic systolic and diastolic heart failure, NYHA class 4 Assessment/Plan: Now off dopamine (given for hypotension and transient anuria). Restarted metoprolol (systolic CHF; PAF); increase dosage gradually as BP allows. Periods of hypotension and hyperkalemia make ACEI or Aldactone problematic; restart low-dose ACEI or ARB cautiously if BP and electrolytes allow when possible. On furosemide. Is and Os, daily weight; BUN/Cr; electrolytes. Code(s): I50.43 - ACUTE ON CHRONIC COMBINED SYSTOLIC AND DIASTOLIC HRT FAIL (13) Aortic valve replaced Code(s): Z95.2 - PRESENCE OF PROSTHETIC HEART VALVE (14) Fatty liver Assessment/Plan: hepatomegaly; fatty liver. Meds reviewed, currently not on statin or amio or other cardiac med that would cause LFT elevation F/u with GI. Code(s): K76.0 - FATTY (CHANGE OF) LIVER, NOT ELSEWHERE CLASSIFIED Cardiology for Nataly
--- NOTE | 2017-01-21 09:34 | PN ---
Progress Note (short form) - Note Progress Note: Patient seen and examined on Telemetry. Awake and alert. Denies CP or SOB. No acute events overnight. Noted severe metabolic disarray. OBJECTIVE: Intake & Output 01/18/17 01/19/17 01/20/17 01/21/17 23:59 23:59 23:59 23:59 Intake Total 360 130 720 Output Total 250 600 800 Balance 110 -470 -80 Weight 155 lb 3.2 oz 157 lb 6.4 oz Last Vital Signs Temp Pulse Resp BP Pulse Ox 97.8 F 95 H 22 95/47 96 01/21/17 06:00 01/21/17 06:00 01/21/17 06:00 01/21/17 06:00 01/20/17 20:40 Active Medications Alprazolam (Xanax -) 0.25 mg PO BID [facility] Last Admin: 01/20/17 23:09 Dose: 0.25 mg Aspirin (Asa -) 81 mg PO DAILY [facility] Last Admin: 01/20/17 09:11 Dose: 81 mg Budesonide/Formoterol Fumarate (Symbicort 80/4.5mcg -) 1 puff IH BID [facility] Last Admin: 01/20/17 23:10 Dose: 1 puff Clopidogrel Bisulfate (Plavix -) 75 mg PO DAILY [facility] Last Admin: 01/20/17 09:13 Dose: 75 mg Heparin Sodium (Porcine) (Heparin -) 5,000 unit SQ TID [facility] Last Admin: 01/21/17 06:41 Dose: 5,000 unit Levothyroxine Sodium (Synthroid -) 75 mcg PO DAILY@0700 [facility] Last Admin: 01/21/17 06:37 Dose: 75 mcg Lidocaine (Lidoderm Patch -) 1 patch TP DAILY [facility] Last Admin: 01/20/17 09:12 Dose: 1 patch Methyl Salicylate (Malick-Stewart -) 1 applic TP DAILY [facility] Last Admin: 01/20/17 09:12 Dose: 1 applic Metoclopramide HCl (Reglan Injection -) 10 mg IVPB Q6H PRN PRN Reason: NAUSEA AND/OR VOMITING Metoprolol Tartrate (Lopressor -) 12.5 mg PO BID [facility] Last Admin: 01/20/17 23:14 Dose: 12.5 mg Miscellaneous (Lidoderm Patch Removal) 1 each MC DAILY@2200 [facility] Last Admin: 01/20/17 23:16 Dose: 1 each Zocor -Patient's Own (Medication (Nf)) 1 each PO HS [facility] Last Admin: 01/20/17 23:10 Dose: 1 each Oxycodone HCl (Roxicodone -) 10 mg PO Q6H PRN PRN Reason: PAIN LEVEL 6-10 Last Admin: 01/20/17 09:10 Dose: 10 mg Oxycodone HCl (Roxicodone -) 5 mg PO Q6H PRN PRN Reason: PAIN LEVEL 1-5 Last Admin: 01/20/17 23:18 Dose: 5 mg Sodium Chloride ([place] Nasal [place] -) 2 spray NS DAILY PRN PRN Reason: NASAL CONGESTION Last Admin: 01/20/17 06:16 Dose: 2 sprays Tiotropium [place] (Spiriva -) 1 puff IH DAILY [facility] Last Admin: 01/20/17 09:13 Dose: 1 puff Gen: Awake and alert Heart: RRR Lung: scattered rhonchi Abd: soft, nontender Ext: no edema Laboratory Results - last 24 hr 01/21/17 05:10 Sodium 125 L Potassium 5.0 Chloride 83 L Carbon Dioxide 33 H Anion Gap 9 BUN 42 H Creatinine 0.8 Creat Clearance w eGFR > 60 Random Glucose 92 Calcium 8.6 Total Bilirubin 0.6 AST 275 H D ALT 260 H D Alkaline Phosphatase 254 H D Total Protein 6.0 L Albumin 2.5 L ASSESSMENT AND PLAN: UTI Septic vs Cardiogenic Shock improving Severe LV Systolic Dysfunction s/p Bi-V ICD Atrial Fibrillation Mitral Regurgitation Pulmonary HTN s/p AVR CAD COPD Hyponatremia Hypothyroidism Transaminitis : possibly due to low flow state / BiV failure - To discuss hyponatremia with Renal - rate control - ASA, plavix - O2 to keep Spo2 >90% - antibiotics completed - inhaled bronchodilators - PO as tolerated - DVT prophylaxis Dr Payton
[2017-01-21] MEDS ORDERED: PT OWN MED DRAWER 7, Y5N ONE ×2 (10:23→21:55)
[2017-01-21] MEDS: METHYL SALICYLATE/MENTHOL OINT 30 GM TUBE TP SCH (10:26)
[2017-01-21] MEDS: ASPIRIN 81 MG CHEWABLE TABLETS PO SCH (10:26)
[2017-01-21] MEDS: ALPRAZolam 0.25 MG TABLET PO SCH (10:26)
[2017-01-21] MEDS: CLOPIDOGREL BISULFATE 75 MG TABLET (FP) PO SCH (10:27)
[2017-01-21] MEDS: TIOTROPIUM BROMIDE 18 MCG/INH (DEVICE W/ 5 CAPSULES) IH SCH (10:27)
[2017-01-21] MEDS: METOPROLOL TARTRATE 25 MG TABLET (FP) PO SCH ×2 (10:27→22:05)
[2017-01-21] MEDS: LIDOCAINE 5% TOPICAL PATCH TP SCH (10:27)
[2017-01-21] MEDS: BUDESONIDE/FORMETEROL FUMARATE 80/4.5 mcg INHALER IH SCH ×2 (10:28→22:05)
--- NOTE | 2017-01-21 12:36 | PN ---
Progress Note (short form) - Note Progress Note: Subjective: The patient was seen and examined at the bedside, she reports feeling better today. Hyponatremia worsening Current Medications Generic Name Dose Route Start Last Admin Trade Name Xavier PRN Reason Stop Dose Admin Alprazolam 0.25 mg 01/18/17 22:00 01/21/17 10:26 Xanax - PO 0.25 mg BID [facility] Administration Aspirin 81 mg 01/19/17 10:00 01/21/17 10:26 Asa - PO 81 mg DAILY [facility] Administration Budesonide/Formoterol Fumarate 1 puff 01/18/17 22:00 01/21/17 10:28 Symbicort 80/4.5mcg - IH 1 puff BID [facility] Administration Clopidogrel Bisulfate 75 mg 01/19/17 10:00 01/21/17 10:27 Plavix - PO 75 mg DAILY [facility] Administration Heparin Sodium (Porcine) 5,000 unit 01/18/17 22:00 01/21/17 06:41 Heparin - SQ 5,000 unit TID [facility] Administration Levothyroxine Sodium 75 mcg 01/19/17 07:00 01/21/17 06:37 Synthroid - PO 75 mcg DAILY@0700 [facility] Administration Lidocaine 1 patch 01/19/17 10:00 01/21/17 10:27 Lidoderm Patch - TP 1 patch DAILY [facility] Administration Methyl Salicylate 1 applic 01/19/17 16:15 01/21/17 10:26 Malick-Stewart - TP 1 applic DAILY [facility] Administration Metoclopramide HCl 10 mg 01/18/17 19:41 Reglan Injection - IVPB Q6H PRN NAUSEA AND/OR VOMITING Metoprolol Tartrate 12.5 mg 01/18/17 22:00 01/21/17 10:27 Lopressor - PO 12.5 mg BID [facility] Administration Miscellaneous 1 each 01/18/17 22:00 01/20/17 23:16 Lidoderm Patch Removal MC 1 each DAILY@2200 [facility] Administration Zocor -Patient's Own 1 each 01/18/17 22:00 01/20/17 23:10 Medication (Nf) PO 1 each HS [facility] Administration Oxycodone HCl 10 mg 01/18/17 19:41 01/20/17 09:10 Roxicodone - PO 10 mg Q6H PRN Administration PAIN LEVEL 6-10 Oxycodone HCl 5 mg 01/18/17 19:41 01/20/17 23:18 Roxicodone - PO 5 mg Q6H PRN Administration PAIN LEVEL 1-5 Sodium Chloride 2 spray 01/19/17 19:37 01/20/17 06:16 [place] Nasal [place] - NS 2 sprays DAILY PRN Administration NASAL CONGESTION Tiotropium [place] 1 puff 01/19/17 10:00 01/21/17 10:27 Spiriva - IH 1 puff DAILY [facility] Administration Objective: Vital Signs Period Temp Pulse Resp BP Sys/[place] Pulse Ox Last 24 Hr 97.8 F-98.4 F 92-104 18-23 90-117/47-85 96-96 Physical Exam: General: NAD, A&Ox3 Lungs: Scattered rhonchi bilaterally Heart: RRR, S1S2 Abd: Soft, non-tender, non-distended. Normoactive bowel sounds Ext: B/l lower extremities with no edema CBCD WBC 10.2 K/mm3 (4.0-10.0) H 01/20/17 05:55 RBC 3.65 M/mm3 (3.60-5.2) 01/20/17 05:55 Hgb 9.9 GM/dL (10.7-15.3) L 01/20/17 05:55 Hct 29.5 % (32.4-45.2) L 01/20/17 05:55 MCV 80.8 fl (80-96) 01/20/17 05:55 MCHC 33.6 g/dl (32.0-36.0) 01/20/17 05:55 RDW 15.5 % (11.6-15.6) 01/20/17 05:55 Plt Count 373 K/MM3 (134-434) 01/20/17 05:55 MPV 8.7 fl (7.5-11.1) 01/20/17 05:55 CMP Sodium 125 mmol/L (136-145) L 01/21/17 05:10 Potassium 5.0 mmol/L (3.5-5.1) 01/21/17 05:10 Chloride 83 mmol/L (98-107) L 01/21/17 05:10 Carbon Dioxide 33 mmol/L (21-32) H 01/21/17 05:10 Anion Gap 9 (8-16) 01/21/17 05:10 BUN 42 mg/dL (7-18) H 01/21/17 05:10 Creatinine 0.8 mg/dL (0.55-1.02) 01/21/17 05:10 Creat Clearance w eGFR > 60 (>60) 01/21/17 05:10 Random Glucose 92 mg/dL (74-106) 01/21/17 05:10 Calcium 8.6 mg/dL (8.5-10.1) 01/21/17 05:10 Total Bilirubin 0.6 mg/dL (0.2-1.0) 01/21/17 05:10 AST 275 U/L (15-37) H D 01/21/17 05:10 ALT 260 U/L (12-78) H D 01/21/17 05:10 Alkaline Phosphatase 254 U/L (45-117) H D 01/21/17 05:10 Total Protein 6.0 g/dl (6.4-8.2) L 01/21/17 05:10 Albumin 2.5 g/dl (3.4-5.0) L 01/21/17 05:10 CARDIAC ENZYMES Creatine Kinase 29 IU/L (26-192) 01/12/17 15:45 Troponin I 0.03 ng/ml (0.00-0.05) 01/12/17 15:45 Microbiology 01/12/17 20:50 Blood - Peripheral Venous Blood Culture - Final NO GROWTH AFTER 5 DAYS INCUBATION 01/12/17 20:50 Blood - Peripheral Venous Blood Culture - Final NO GROWTH AFTER 5 DAYS INCUBATION 01/14/17 15:00 Urine - Urine [place] Urine Culture - Final NO GROWTH OBTAINED 01/12/17 15:45 Urine - Urine Clean Catch Urine Culture - Final Contaminated: Please Repeat Assessment: This is an 81 year old female with PMHx of HTN, hyperlipidemia, CAD s/p CABG, AVR, severe LV systolic dysfunction s/p Bi-V ICD, combined systolic and diastolic heart failure, hypothyroidism, who presented to the ED with dysuria, right flank pain Plan: 1) Cardiology: Cardiogenic shock, acute on chronic systolic and diastolic heart failure, severe LV systolic dysfunction - Shock resolved, maintaining MAP off dopamine - Lasix 40mg po given yesterday, f/u chest x-ray today - Continue Lopressor bid - ECHO reviewed - Appreciate cardiology consult HTN - As above Hyperlipidemia - Continue Zocor CAD s/p CABG AVR - Continue ASA - Continue Plavix NSVT - 3-4 beat run 2) GI: Transaminitis - Worsening today - Liver ultrasound with hepatomegaly and diffuse fatty infiltration of the liver - Hepatitis panel negative - Continue to trend - Hold Zocor - Appreciate GI consult 3) ID: Suspected sepsis 2/2 UTI - Urine culture negative - Off all abx 4) : BETTIE - Resolved 5) Endocrine: Hypothyroidism - Continue Synthroid 6) F/E/N - Hyponatremia: worsening, management per nephrology - Sodium controlled diet 7) Prophylaxis: - Heparin 5,000u sq tid 8) Dispo: - Requires continued inpatient care CODE STATUS: FULL CODE Visit type - Emergency Visit Emergency Visit: Yes ED Registration Date: 01/12/17 Care time: The patient presented to the Emergency Department on the above date and was hospitalized for further evaluation of their emergent condition. - New Patient This patient is new to me today: No - Critical Care Critical Care patient: No
--- NOTE | 2017-01-21 15:14 | PN ---
Progress Note, Physician History of Present Illness: Pt seen and examined at bedside. She says she is more sleepy today. She is out of bed to chair. - Current Medication List Current Medications: Active Medications Alprazolam (Xanax -) 0.25 mg PO BID [facility] Last Admin: 01/21/17 10:26 Dose: 0.25 mg Aspirin (Asa -) 81 mg PO DAILY [facility] Last Admin: 01/21/17 10:26 Dose: 81 mg Budesonide/Formoterol Fumarate (Symbicort 80/4.5mcg -) 1 puff IH BID [facility] Last Admin: 01/21/17 10:28 Dose: 1 puff Clopidogrel Bisulfate (Plavix -) 75 mg PO DAILY [facility] Last Admin: 01/21/17 10:27 Dose: 75 mg Heparin Sodium (Porcine) (Heparin -) 5,000 unit SQ TID [facility] Last Admin: 01/21/17 06:41 Dose: 5,000 unit Levothyroxine Sodium (Synthroid -) 75 mcg PO DAILY@0700 [facility] Last Admin: 01/21/17 06:37 Dose: 75 mcg Lidocaine (Lidoderm Patch -) 1 patch TP DAILY [facility] Last Admin: 01/21/17 10:27 Dose: 1 patch Methyl Salicylate (Malick-Stewart -) 1 applic TP DAILY [facility] Last Admin: 01/21/17 10:26 Dose: 1 applic Metoclopramide HCl (Reglan Injection -) 10 mg IVPB Q6H PRN PRN Reason: NAUSEA AND/OR VOMITING Metoprolol Tartrate (Lopressor -) 12.5 mg PO BID [facility] Last Admin: 01/21/17 10:27 Dose: 12.5 mg Miscellaneous (Lidoderm Patch Removal) 1 each MC DAILY@2200 [facility] Last Admin: 01/20/17 23:16 Dose: 1 each Zocor -Patient's Own (Medication (Nf)) 1 each PO HS [facility] Last Admin: 01/20/17 23:10 Dose: 1 each Oxycodone HCl (Roxicodone -) 10 mg PO Q6H PRN PRN Reason: PAIN LEVEL 6-10 Last Admin: 01/20/17 09:10 Dose: 10 mg Oxycodone HCl (Roxicodone -) 5 mg PO Q6H PRN PRN Reason: PAIN LEVEL 1-5 Last Admin: 01/20/17 23:18 Dose: 5 mg Sodium Chloride ([place] Nasal [place] -) 2 spray NS DAILY PRN PRN Reason: NASAL CONGESTION Last Admin: 01/20/17 06:16 Dose: 2 sprays Tiotropium [place] (Spiriva -) 1 puff IH DAILY [facility] Last Admin: 01/21/17 10:27 Dose: 1 puff - Objective Vital Signs: Vital Signs Temperature 97.8 F 01/21/17 06:00 Pulse Rate 95 H 01/21/17 06:00 Respiratory Rate 22 01/21/17 06:00 Blood Pressure 95/47 01/21/17 06:00 O2 Sat by Pulse Oximetry (%) 96 01/20/17 20:40 Constitutional: Yes: Calm Eyes: Yes: Conjunctiva Clear HENT: Yes: Atraumatic Cardiovascular: Yes: S1, S2 Respiratory: Yes: On Nasal O2 Gastrointestinal: Yes: Soft Genitourinary: Yes: WNL Musculoskeletal: Yes: WNL Edema: Yes Edema: LLE: Trace, RLE: Trace Neurological: Yes: Oriented Psychiatric: Yes: Oriented Labs: CBC, BMP 01/20/17 05:55 01/21/17 05:10 INR, PTT INR 1.12 (0.82-1.09) 01/12/17 15:45 Problem List - Problems (1) Hypokalemia Code(s): E87.6 - HYPOKALEMIA (2) Hyponatremia Code(s): E87.1 - HYPO-OSMOLALITY AND HYPONATREMIA (3) UTI (urinary tract infection) Code(s): N39.0 - URINARY TRACT INFECTION, SITE NOT SPECIFIED Qualifiers: Urinary tract infection type: site unspecified Hematuria presence: without hematuria Qualified Code(s): N39.0 - Urinary tract infection, site not specified; N39.0 - Urinary tract infection, site not specified; R31.9 - Hematuria, unspecified; R31.9 - Hematuria, unspecified (4) Acute on chronic systolic CHF (congestive heart failure) Code(s): I50.23 - ACUTE ON CHRONIC SYSTOLIC (CONGESTIVE) HEART FAILURE (5) COPD (chronic obstructive pulmonary disease) Code(s): J44.9 - CHRONIC OBSTRUCTIVE PULMONARY DISEASE, UNSPECIFIED Assessment/Plan Current Medications Generic Name Dose Route Start Last Admin Trade Name Freq PRN Reason Stop Dose Admin Alprazolam 0.25 mg 01/18/17 22:00 01/21/17 10:26 Xanax - PO 0.25 mg BID [facility] Administration Aspirin 81 mg 01/19/17 10:00 01/21/17 10:26 Asa - PO 81 mg DAILY [facility] Administration Budesonide/Formoterol Fumarate 1 puff 01/18/17 22:00 01/21/17 10:28 Symbicort 80/4.5mcg - IH 1 puff BID [facility] Administration Clopidogrel Bisulfate 75 mg 01/19/17 10:00 01/21/17 10:27 Plavix - PO 75 mg DAILY [facility] Administration Heparin Sodium (Porcine) 5,000 unit 01/18/17 22:00 01/21/17 06:41 Heparin - SQ 5,000 unit TID [facility] Administration Levothyroxine Sodium 75 mcg 01/19/17 07:00 01/21/17 06:37 Synthroid - PO 75 mcg DAILY@0700 [facility] Administration Lidocaine 1 patch 01/19/17 10:00 01/21/17 10:27 Lidoderm Patch - TP 1 patch DAILY [facility] Administration Methyl Salicylate 1 applic 01/19/17 16:15 01/21/17 10:26 Malick-Stewart - TP 1 applic DAILY [facility] Administration Metoclopramide HCl 10 mg 01/18/17 19:41 Reglan Injection - IVPB Q6H PRN NAUSEA AND/OR VOMITING Metoprolol Tartrate 12.5 mg 01/18/17 22:00 01/21/17 10:27 Lopressor - PO 12.5 mg BID [facility] Administration Miscellaneous 1 each 01/18/17 22:00 01/20/17 23:16 Lidoderm Patch Removal MC 1 each DAILY@2200 [facility] Administration Zocor -Patient's Own 1 each 01/18/17 22:00 01/20/17 23:10 Medication (Nf) PO 1 each HS [facility] Administration Oxycodone HCl 10 mg 01/18/17 19:41 01/20/17 09:10 Roxicodone - PO 10 mg Q6H PRN Administration PAIN LEVEL 6-10 Oxycodone HCl 5 mg 01/18/17 19:41 01/20/17 23:18 Roxicodone - PO 5 mg Q6H PRN Administration PAIN LEVEL 1-5 Sodium Chloride 2 spray 01/19/17 19:37 01/20/17 06:16 [place] Nasal [place] - NS 2 sprays DAILY PRN Administration NASAL CONGESTION Tiotropium [place] 1 puff 01/19/17 10:00 01/21/17 10:27 Spiriva - IH 1 puff DAILY [facility] Administration 1. UTI 2. hyponatremia 3. paralyzed hemidiaphragm 4. HTN 5. valvular heart disease 6. azotemia 7. hypothyroid 8. CAD 9. hypokalemia 10. alkalosis 11. transaminitis 12. anxiety 13. CHF Plan - will hold off lasix today - restrict free water - am cxr - hold xanax - follow LFTs, GI eval - keep on tele monitor - will follow Dr Bella
[2017-01-21] MEDS ORDERED: ALPRAZolam 0.25 MG TABLET PO PRN (15:15)
[2017-01-21] MEDS ORDERED: guaiFENesin 200 MG/10 ML 10 ML UNIT-DOSE CUPS PO ONE (22:00)
[2017-01-21] MEDS: guaiFENesin 200 MG/10 ML 10 ML UNIT-DOSE CUPS PO ONE ×2 (22:04→22:12)
[2017-01-21] MEDS: LIDOCAINE PATCH REMOVAL MC SCH (22:13)
[2017-01-22] MEDS: LEVOTHYROXINE NA 75 MCG TABLET (FP) PO SCH (06:22)
[2017-01-22] MEDS: HEPARIN NA (PORCINE) 5,000 UNITS/ML 1ML VIAL SQ SCH ×3 (06:22→21:47)
[2017-01-22 06:44] LABS: ALBUMIN 2.5 g/dl (3.4-5.0); ANION GAP 7 (8-16); CALCIUM 8.8 mg/dL (8.5-10.1); CO2 36 mmol/L (21-32); GLUCOSE,RANDOM 86 mg/dL (74-106)
[2017-01-22 06:49] LABS: ALK PHOS 238 U/L (45-117); BILIRUBIN,TOTAL 0.7 mg/dL (0.2-1.0); CREATININE 0.6 mg/dL (0.55-1.02); SGOT/AST 123 U/L (15-37); SGPT/ALT 201 U/L (12-78)
--- NOTE | 2017-01-22 08:56 | PN ---
Progress Note, Physician Chief Complaint: alert, no distress TELE: reviewed, paced. no sustained arrhythmias - Current Medication List Current Medications: Active Medications Alprazolam (Xanax -) 0.25 mg PO DAILY PRN PRN Reason: ANXIETY Aspirin (Asa -) 81 mg PO DAILY [facility] Last Admin: 01/21/17 10:26 Dose: 81 mg Budesonide/Formoterol Fumarate (Symbicort 80/4.5mcg -) 1 puff IH BID [facility] Last Admin: 01/21/17 22:05 Dose: 1 puff Clopidogrel Bisulfate (Plavix -) 75 mg PO DAILY [facility] Last Admin: 01/21/17 10:27 Dose: 75 mg Docusate Sodium (Colace -) 100 mg PO BID [facility] Heparin Sodium (Porcine) (Heparin -) 5,000 unit SQ TID [facility] Last Admin: 01/22/17 06:22 Dose: 5,000 unit Levothyroxine Sodium (Synthroid -) 75 mcg PO DAILY@0700 [facility] Last Admin: 01/22/17 06:22 Dose: 75 mcg Lidocaine (Lidoderm Patch -) 1 patch TP DAILY [facility] Last Admin: 01/21/17 10:27 Dose: 1 patch Methyl Salicylate (Malick-Stewart -) 1 applic TP DAILY [facility] Last Admin: 01/21/17 10:26 Dose: 1 applic Metoclopramide HCl (Reglan Injection -) 10 mg IVPB Q6H PRN PRN Reason: NAUSEA AND/OR VOMITING Metoprolol Tartrate (Lopressor -) 12.5 mg PO BID [facility] Last Admin: 01/21/17 22:05 Dose: 12.5 mg Miscellaneous (Lidoderm Patch Removal) 1 each MC DAILY@2200 [facility] Last Admin: 01/21/17 22:13 Dose: 1 each Zocor -Patient's Own (Medication (Nf)) 1 each PO HS [facility] Last Admin: 01/20/17 23:10 Dose: 1 each Oxycodone HCl (Roxicodone -) 10 mg PO Q6H PRN PRN Reason: PAIN LEVEL 6-10 Last Admin: 01/20/17 09:10 Dose: 10 mg Oxycodone HCl (Roxicodone -) 5 mg PO Q6H PRN PRN Reason: PAIN LEVEL 1-5 Last Admin: 01/20/17 23:18 Dose: 5 mg Sodium Chloride ([place] Nasal [place] -) 2 spray NS DAILY PRN PRN Reason: NASAL CONGESTION Last Admin: 01/20/17 06:16 Dose: 2 sprays Tiotropium [place] (Spiriva -) 1 puff IH DAILY [facility] Last Admin: 01/21/17 10:27 Dose: 1 puff - Objective Vital Signs: Vital Signs Temperature 98.0 F 01/21/17 22:00 Pulse Rate 92 H 01/22/17 06:00 Respiratory Rate 18 01/22/17 06:00 Blood Pressure 97/49 01/22/17 06:00 O2 Sat by Pulse Oximetry (%) 94 L 01/21/17 20:48 Constitutional: Yes: No Distress Cardiovascular: Yes: Regular Rate and Rhythm Respiratory: Yes: CTA Bilaterally Gastrointestinal: Yes: Soft Edema: No Neurological: Yes: Alert Labs: CBC, BMP 01/20/17 05:55 01/22/17 05:10 INR, PTT INR 1.12 (0.82-1.09) 01/12/17 15:45 Laboratory Tests 01/20/17 01/22/17 05:55 05:10 WBC 10.2 H Hgb 9.9 L Plt Count 373 Sodium 125 L Potassium 4.8 Anion Gap 7 L BUN 38 H Creatinine 0.6 D AST 123 H D ALT 201 H D Alkaline Phosphatase 238 H - ....Imaging EKG: Image Reviewed Assessment/Plan Assessment/Plan Problem List - Problems (1) Anxiety 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 Assessment/Plan: On medications; psychologist may be of benefit. Code(s): F41.0 - PANIC DISORDER [EPISODIC PAROXYSMAL ANXIETY] (2) CAD (coronary artery disease) Code(s): I25.10 - ATHSCL HEART DISEASE OF [place] CORONARY ARTERY W/O ANG PCTRS (3) COPD bronchitis Code(s): J44.9 - CHRONIC OBSTRUCTIVE PULMONARY DISEASE, UNSPECIFIED (4) Diabetes Code(s): E11.9 - TYPE 2 DIABETES MELLITUS WITHOUT COMPLICATIONS (5) Hx of CABG Code(s): Z95.1 - PRESENCE OF AORTOCORONARY BYPASS GRAFT (6) Hyperlipidemia Code(s): E78.5 - HYPERLIPIDEMIA, UNSPECIFIED (7) Hypertension Code(s): I10 - ESSENTIAL (PRIMARY) HYPERTENSION (8) Hypothyroidism Code(s): E03.9 - HYPOTHYROIDISM, UNSPECIFIED (9) ICD (implantable cardioverter-defibrillator) in place Assessment/Plan: Pt reports no shocks. Code(s): Z95.810 - PRESENCE OF AUTOMATIC (IMPLANTABLE) CARDIAC DEFIBRILLATOR (10) Sleep apnea in adult Code(s): G47.33 - OBSTRUCTIVE SLEEP APNEA (ADULT) (PEDIATRIC) (11) Valvular heart disease Code(s): I38 - ENDOCARDITIS, VALVE UNSPECIFIED (12) Acute on chronic systolic and diastolic heart failure, NYHA class 4 Assessment/Plan: Now off dopamine (given for hypotension and transient anuria). Restarted metoprolol (systolic CHF; PAF); increase dosage gradually as BP allows. Periods of hypotension and hyperkalemia make ACEI or Aldactone problematic; restart low-dose ACEI or ARB cautiously if BP and electrolytes allow when possible. On furosemide. Is and Os, daily weight; BUN/Cr; electrolytes. Code(s): I50.43 - ACUTE ON CHRONIC COMBINED SYSTOLIC AND DIASTOLIC HRT FAIL (13) Aortic valve replaced Code(s): Z95.2 - PRESENCE OF PROSTHETIC HEART VALVE (14) Fatty liver Assessment/Plan: hepatomegaly; fatty liver. Meds reviewed, currently not on statin or amio or other cardiac med that would cause LFT elevation F/u with GI. Code(s): K76.0 - FATTY (CHANGE OF) LIVER, NOT ELSEWHERE CLASSIFIED Cardiology for Nataly
[2017-01-22] MEDS: LIDOCAINE 5% TOPICAL PATCH TP SCH (09:33)
[2017-01-22] MEDS: CLOPIDOGREL BISULFATE 75 MG TABLET (FP) PO SCH (09:34)
[2017-01-22] MEDS: DOCUSATE SODIUM 100 MG CAPSULE (FP) PO SCH ×2 (09:34→21:46)
[2017-01-22] MEDS: METOPROLOL TARTRATE 25 MG TABLET (FP) PO SCH ×2 (09:34→21:47)
[2017-01-22] MEDS: ASPIRIN 81 MG CHEWABLE TABLETS PO SCH (09:34)
[2017-01-22] MEDS ORDERED: PT OWN MED DRAWER 7, Y5N ONE ×3 (09:36→21:54)
[2017-01-22] MEDS: BUDESONIDE/FORMETEROL FUMARATE 80/4.5 mcg INHALER IH SCH ×2 (09:37→21:51)
--- NOTE | 2017-01-22 10:05 | PN ---
Progress Note (short form) - Note Progress Note: Patient seen and examined on Telemetry. Awake and alert. Denies CP or SOB. No acute events overnight. Chemistry noted. OBJECTIVE: Intake & Output 01/19/17 01/20/17 01/21/17 01/22/17 23:59 23:59 23:59 23:59 Intake Total 130 720 450 Output Total 600 800 250 Balance -470 -80 200 Weight 155 lb 3.2 oz 157 lb 6.4 oz 161 lb 12.8 oz Last Vital Signs Temp Pulse Resp BP Pulse Ox 98.0 F 92 H 18 97/49 94 L 01/21/17 22:00 01/22/17 06:00 01/22/17 06:00 01/22/17 06:00 01/21/17 20:48 Active Medications Alprazolam (Xanax -) 0.25 mg PO DAILY PRN PRN Reason: ANXIETY Aspirin (Asa -) 81 mg PO DAILY [facility] Last Admin: 01/22/17 09:34 Dose: 81 mg Budesonide/Formoterol Fumarate (Symbicort 80/4.5mcg -) 1 puff IH BID [facility] Last Admin: 01/22/17 09:37 Dose: 1 puff Clopidogrel Bisulfate (Plavix -) 75 mg PO DAILY [facility] Last Admin: 01/22/17 09:34 Dose: 75 mg Docusate Sodium (Colace -) 100 mg PO BID [facility] Last Admin: 01/22/17 09:34 Dose: 100 mg Heparin Sodium (Porcine) (Heparin -) 5,000 unit SQ TID [facility] Last Admin: 01/22/17 06:22 Dose: 5,000 unit Levothyroxine Sodium (Synthroid -) 75 mcg PO DAILY@0700 [facility] Last Admin: 01/22/17 06:22 Dose: 75 mcg Lidocaine (Lidoderm Patch -) 1 patch TP DAILY [facility] Last Admin: 01/22/17 09:33 Dose: 1 patch Methyl Salicylate (Malick-Stewart -) 1 applic TP DAILY [facility] Last Admin: 01/21/17 10:26 Dose: 1 applic Metoclopramide HCl (Reglan Injection -) 10 mg IVPB Q6H PRN PRN Reason: NAUSEA AND/OR VOMITING Metoprolol Tartrate (Lopressor -) 12.5 mg PO BID [facility] Last Admin: 01/22/17 09:34 Dose: 12.5 mg Miscellaneous (Lidoderm Patch Removal) 1 each MC DAILY@2200 [facility] Last Admin: 01/21/17 22:13 Dose: 1 each Zocor -Patient's Own (Medication (Nf)) 1 each PO HS [facility] Last Admin: 01/20/17 23:10 Dose: 1 each Oxycodone HCl (Roxicodone -) 10 mg PO Q6H PRN PRN Reason: PAIN LEVEL 6-10 Last Admin: 01/20/17 09:10 Dose: 10 mg Oxycodone HCl (Roxicodone -) 5 mg PO Q6H PRN PRN Reason: PAIN LEVEL 1-5 Last Admin: 01/20/17 23:18 Dose: 5 mg Sodium Chloride ([place] Nasal [place] -) 2 spray NS DAILY PRN PRN Reason: NASAL CONGESTION Last Admin: 01/20/17 06:16 Dose: 2 sprays Tiotropium [place] (Spiriva -) 1 puff IH DAILY [facility] Last Admin: 01/21/17 10:27 Dose: 1 puff Gen: Awake and alert Heart: RRR Lung: scattered rhonchi Abd: soft, nontender Ext: no edema Laboratory Results - last 24 hr 01/22/17 05:10 Sodium 125 L Potassium 4.8 Chloride 82 L Carbon Dioxide 36 H Anion Gap 7 L BUN 38 H Creatinine 0.6 D Creat Clearance w eGFR > 60 Random Glucose 86 Calcium 8.8 Total Bilirubin 0.7 AST 123 H D ALT 201 H D Alkaline Phosphatase 238 H Total Protein 6.0 L Albumin 2.5 L ASSESSMENT AND PLAN: UTI Septic vs Cardiogenic Shock improving Severe LV Systolic Dysfunction s/p Bi-V ICD Atrial Fibrillation Mitral Regurgitation Pulmonary HTN s/p AVR CAD COPD Hyponatremia Hypothyroidism Transaminitis : possibly due to low flow state / BiV failure - Follow Na level - rate control - ASA, plavix - O2 to keep Spo2 >90% - antibiotics completed - inhaled bronchodilators - PO as tolerated - DVT prophylaxis Dr Payton
[2017-01-22] MEDS: TIOTROPIUM BROMIDE 18 MCG/INH (DEVICE W/ 5 CAPSULES) IH SCH (10:16)
[2017-01-22] MEDS: METHYL SALICYLATE/MENTHOL OINT 30 GM TUBE TP SCH (10:18)
--- NOTE | 2017-01-22 12:17 | PN ---
Progress Note (short form) - Note Progress Note: Subjective: The patient was seen and examined at the bedside, she reports feeling better today. NA 125 Current Medications Generic Name Dose Route Start Last Admin Trade Name Freq PRN Reason Stop Dose Admin Alprazolam 0.25 mg 01/21/17 15:15 Xanax - PO DAILY PRN ANXIETY Aspirin 81 mg 01/19/17 10:00 01/22/17 09:34 Asa - PO 81 mg DAILY [facility] Administration Budesonide/Formoterol Fumarate 1 puff 01/18/17 22:00 01/22/17 09:37 Symbicort 80/4.5mcg - IH 1 puff BID [facility] Administration Clopidogrel Bisulfate 75 mg 01/19/17 10:00 01/22/17 09:34 Plavix - PO 75 mg DAILY [facility] Administration Docusate Sodium 100 mg 01/22/17 10:00 01/22/17 09:34 Colace - PO 100 mg BID [facility] Administration Heparin Sodium (Porcine) 5,000 unit 01/18/17 22:00 01/22/17 06:22 Heparin - SQ 5,000 unit TID [facility] Administration Levothyroxine Sodium 75 mcg 01/19/17 07:00 01/22/17 06:22 Synthroid - PO 75 mcg DAILY@0700 [facility] Administration Lidocaine 1 patch 01/19/17 10:00 01/22/17 09:33 Lidoderm Patch - TP 1 patch DAILY [facility] Administration Methyl Salicylate 1 applic 01/19/17 16:15 01/22/17 10:18 Malick-Stewart - TP Not Given DAILY [facility] Metoclopramide HCl 10 mg 01/18/17 19:41 Reglan Injection - IVPB Q6H PRN NAUSEA AND/OR VOMITING Metoprolol Tartrate 12.5 mg 01/18/17 22:00 01/22/17 09:34 Lopressor - PO 12.5 mg BID [facility] Administration Miscellaneous 1 each 01/18/17 22:00 01/21/17 22:13 Lidoderm Patch Removal MC 1 each DAILY@2200 [facility] Administration Zocor -Patient's Own 1 each 01/18/17 22:00 01/20/17 23:10 Medication (Nf) PO 1 each HS [facility] Administration Oxycodone HCl 10 mg 01/18/17 19:41 01/20/17 09:10 Roxicodone - PO 10 mg Q6H PRN Administration PAIN LEVEL 6-10 Oxycodone HCl 5 mg 01/18/17 19:41 01/20/17 23:18 Roxicodone - PO 5 mg Q6H PRN Administration PAIN LEVEL 1-5 Sodium Chloride 2 spray 01/19/17 19:37 01/20/17 06:16 [place] Nas[place] - NS 2 sprays DAILY PRN Administration NASAL CONGESTION Tiotropium [place] 1 puff 01/19/17 10:00 01/22/17 10:16 Spiriva - IH 1 puff DAILY [facility] Administration Objective: Vital Signs Period Temp Pulse Resp BP Sys/[place] Pulse Ox Last 24 Hr 97.6 F-98.0 F 92-102 18-22 92-100/49-79 94 Physical Exam: General: NAD, A&Ox3 Lungs: Scattered rhonchi bilaterally Heart: RRR, S1S2 Abd: Soft, non-tender, non-distended. Normoactive bowel sounds Ext: B/l lower extremities with no edema CBCD WBC 10.2 K/mm3 (4.0-10.0) H 01/20/17 05:55 RBC 3.65 M/mm3 (3.60-5.2) 01/20/17 05:55 Hgb 9.9 GM/dL (10.7-15.3) L 01/20/17 05:55 Hct 29.5 % (32.4-45.2) L 01/20/17 05:55 MCV 80.8 fl (80-96) 01/20/17 05:55 MCHC 33.6 g/dl (32.0-36.0) 01/20/17 05:55 RDW 15.5 % (11.6-15.6) 01/20/17 05:55 Plt Count 373 K/MM3 (134-434) 01/20/17 05:55 MPV 8.7 fl (7.5-11.1) 01/20/17 05:55 CMP Sodium 125 mmol/L (136-145) L 01/21/17 05:10 Potassium 5.0 mmol/L (3.5-5.1) 01/21/17 05:10 Chloride 83 mmol/L (98-107) L 01/21/17 05:10 Carbon Dioxide 33 mmol/L (21-32) H 01/21/17 05:10 Anion Gap 9 (8-16) 01/21/17 05:10 BUN 42 mg/dL (7-18) H 01/21/17 05:10 Creatinine 0.8 mg/dL (0.55-1.02) 01/21/17 05:10 Creat Clearance w eGFR > 60 (>60) 01/21/17 05:10 Random Glucose 92 mg/dL (74-106) 01/21/17 05:10 Calcium 8.6 mg/dL (8.5-10.1) 01/21/17 05:10 Total Bilirubin 0.6 mg/dL (0.2-1.0) 01/21/17 05:10 AST 275 U/L (15-37) H D 01/21/17 05:10 ALT 260 U/L (12-78) H D 01/21/17 05:10 Alkaline Phosphatase 254 U/L (45-117) H D 01/21/17 05:10 Total Protein 6.0 g/dl (6.4-8.2) L 01/21/17 05:10 Albumin 2.5 g/dl (3.4-5.0) L 01/21/17 05:10 CARDIAC ENZYMES Creatine Kinase 29 IU/L (26-192) 01/12/17 15:45 Troponin I 0.03 ng/ml (0.00-0.05) 01/12/17 15:45 Microbiology 01/12/17 20:50 Blood - Peripheral Venous Blood Culture - Final NO GROWTH AFTER 5 DAYS INCUBATION 01/12/17 20:50 Blood - Peripheral Venous Blood Culture - Final NO GROWTH AFTER 5 DAYS INCUBATION 01/14/17 15:00 Urine - Urine [place] Urine Culture - Final NO GROWTH OBTAINED 01/12/17 15:45 Urine - Urine Clean Catch Urine Culture - Final Contaminated: Please Repeat Assessment: This is an 81 year old female with PMHx of HTN, hyperlipidemia, CAD s/p CABG, AVR, severe LV systolic dysfunction s/p Bi-V ICD, combined systolic and diastolic heart failure, hypothyroidism, who presented to the ED with dysuria, right flank pain Plan: 1) Cardiology: Cardiogenic shock, acute on chronic systolic and diastolic heart failure, severe LV systolic dysfunction - Shock resolved, maintaining MAP off dopamine - Chest x-ray today unchanged - Diuresis per cards/nephrology - Continue Lopressor bid - ECHO reviewed - Appreciate cardiology consult HTN - As above Hyperlipidemia - Continue Zocor CAD s/p CABG AVR - Continue ASA - Continue Plavix NSVT - No sustained arrhythmias overnight 2) GI: Transaminitis - Improving today - Liver ultrasound with hepatomegaly and diffuse fatty infiltration of the liver - Hepatitis panel negative - Continue to trend - Hold Zocor - Appreciate GI consult 3) ID: Suspected sepsis 2/2 UTI - Urine culture negative - Off all abx 4) : BETTIE - Resolved 5) Endocrine: Hypothyroidism - Continue Synthroid 6) F/E/N - Hyponatremia: stable, management per nephrology - Sodium controlled diet 7) Prophylaxis: - Heparin 5,000u sq tid 8) Dispo: - Requires continued inpatient care CODE STATUS: FULL CODE Visit type - Emergency Visit Emergency Visit: Yes ED Registration Date: 01/12/17 Care time: The patient presented to the Emergency Department on the above date and was hospitalized for further evaluation of their emergent condition. - New Patient This patient is new to me today: No - Critical Care Critical Care patient: No
[2017-01-22] MEDS ORDERED: SODIUM CHLORIDE 1 GM TABLET PO ONE (15:23)
--- NOTE | 2017-01-22 15:23 | PN ---
Progress Note, Physician History of Present Illness: Pt seen and examined at bedside. Her PO intake remains poor. She feels that her breathing is comfortable. - Current Medication List Current Medications: Active Medications Alprazolam (Xanax -) 0.25 mg PO DAILY PRN PRN Reason: ANXIETY Aspirin (Asa -) 81 mg PO DAILY [facility] Last Admin: 01/22/17 09:34 Dose: 81 mg Budesonide/Formoterol Fumarate (Symbicort 80/4.5mcg -) 1 puff IH BID [facility] Last Admin: 01/22/17 09:37 Dose: 1 puff Clopidogrel Bisulfate (Plavix -) 75 mg PO DAILY [facility] Last Admin: 01/22/17 09:34 Dose: 75 mg Docusate Sodium (Colace -) 100 mg PO BID [facility] Last Admin: 01/22/17 09:34 Dose: 100 mg Heparin Sodium (Porcine) (Heparin -) 5,000 unit SQ TID [facility] Last Admin: 01/22/17 13:59 Dose: 5,000 unit Levothyroxine Sodium (Synthroid -) 75 mcg PO DAILY@0700 [facility] Last Admin: 01/22/17 06:22 Dose: 75 mcg Lidocaine (Lidoderm Patch -) 1 patch TP DAILY [facility] Last Admin: 01/22/17 09:33 Dose: 1 patch Methyl Salicylate (Malick-Stewart -) 1 applic TP DAILY [facility] Last Admin: 01/22/17 10:18 Dose: Not Given Metoclopramide HCl (Reglan Injection -) 10 mg IVPB Q6H PRN PRN Reason: NAUSEA AND/OR VOMITING Metoprolol Tartrate (Lopressor -) 12.5 mg PO BID [facility] Last Admin: 01/22/17 09:34 Dose: 12.5 mg Miscellaneous (Lidoderm Patch Removal) 1 each MC DAILY@2200 [facility] Last Admin: 01/21/17 22:13 Dose: 1 each Oxycodone HCl (Roxicodone -) 10 mg PO Q6H PRN PRN Reason: PAIN LEVEL 6-10 Last Admin: 01/20/17 09:10 Dose: 10 mg Oxycodone HCl (Roxicodone -) 5 mg PO Q6H PRN PRN Reason: PAIN LEVEL 1-5 Last Admin: 01/20/17 23:18 Dose: 5 mg Sodium Chloride ([place] Nasal [place] -) 2 spray NS DAILY PRN PRN Reason: NASAL CONGESTION Last Admin: 01/20/17 06:16 Dose: 2 sprays Tiotropium [place] (Spiriva -) 1 puff IH DAILY [facility] Last Admin: 01/22/17 10:16 Dose: 1 puff - Objective Vital Signs: Vital Signs Temperature 97.6 F 01/22/17 10:00 Pulse Rate 99 H 01/22/17 10:00 Respiratory Rate 18 01/22/17 10:00 Blood Pressure 95/60 01/22/17 10:00 O2 Sat by Pulse Oximetry (%) 98 01/22/17 09:00 Constitutional: Yes: Calm Eyes: Yes: Conjunctiva Clear Cardiovascular: Yes: S1, S2 Respiratory: Yes: On Nasal O2 Gastrointestinal: Yes: Soft Genitourinary: Yes: WNL Musculoskeletal: Yes: WNL Edema: No Neurological: Yes: Oriented Psychiatric: Yes: Oriented Labs: CBC, BMP 01/20/17 05:55 01/22/17 05:10 INR, PTT INR 1.12 (0.82-1.09) 01/12/17 15:45 - ....Imaging Chest X-ray: Report Reviewed Problem List - Problems (1) Hypokalemia Code(s): E87.6 - HYPOKALEMIA (2) Hyponatremia Code(s): E87.1 - HYPO-OSMOLALITY AND HYPONATREMIA (3) UTI (urinary tract infection) Code(s): N39.0 - URINARY TRACT INFECTION, SITE NOT SPECIFIED Qualifiers: Urinary tract infection type: site unspecified Hematuria presence: without hematuria Qualified Code(s): N39.0 - Urinary tract infection, site not specified; N39.0 - Urinary tract infection, site not specified; R31.9 - Hematuria, unspecified; R31.9 - Hematuria, unspecified (4) Acute on chronic systolic CHF (congestive heart failure) Code(s): I50.23 - ACUTE ON CHRONIC SYSTOLIC (CONGESTIVE) HEART FAILURE (5) COPD (chronic obstructive pulmonary disease) Code(s): J44.9 - CHRONIC OBSTRUCTIVE PULMONARY DISEASE, UNSPECIFIED Assessment/Plan Current Medications Generic Name Dose Route Start Last Admin Trade Name Freq PRN Reason Stop Dose Admin Alprazolam 0.25 mg 01/21/17 15:15 Xanax - PO DAILY PRN ANXIETY Aspirin 81 mg 01/19/17 10:00 01/22/17 09:34 Asa - PO 81 mg DAILY [facility] Administration Budesonide/Formoterol Fumarate 1 puff 01/18/17 22:00 01/22/17 09:37 Symbicort 80/4.5mcg - IH 1 puff BID [facility] Administration Clopidogrel Bisulfate 75 mg 01/19/17 10:00 01/22/17 09:34 Plavix - PO 75 mg DAILY [facility] Administration Docusate Sodium 100 mg 01/22/17 10:00 01/22/17 09:34 Colace - PO 100 mg BID [facility] Administration Heparin Sodium (Porcine) 5,000 unit 01/18/17 22:00 01/22/17 13:59 Heparin - SQ 5,000 unit TID [facility] Administration Levothyroxine Sodium 75 mcg 01/19/17 07:00 01/22/17 06:22 Synthroid - PO 75 mcg DAILY@0700 [facility] Administration Lidocaine 1 patch 01/19/17 10:00 01/22/17 09:33 Lidoderm Patch - TP 1 patch DAILY [facility] Administration Methyl Salicylate 1 applic 01/19/17 16:15 01/22/17 10:18 [place]ick-Ste[place] - TP Not Given DAILY [facility] Metoclopramide HCl 10 mg 01/18/17 19:41 Reglan Injection - IVPB Q6H PRN NAUSEA AND/OR VOMITING Metoprolol Tartrate 12.5 mg 01/18/17 22:00 01/22/17 09:34 Lopressor - PO 12.5 mg BID [facility] Administration Miscellaneous 1 each 01/18/17 22:00 01/21/17 22:13 Lidoderm Patch Removal MC 1 each DAILY@2200 [facility] Administration Oxycodone HCl 10 mg 01/18/17 19:41 01/20/17 09:10 Roxicodone - PO 10 mg Q6H PRN Administration PAIN LEVEL 6-10 Oxycodone HCl 5 mg 01/18/17 19:41 01/20/17 23:18 Roxicodone - PO 5 mg Q6H PRN Administration PAIN LEVEL 1-5 Sodium Chloride 2 spray 01/19/17 19:37 01/20/17 06:16 [place] Nasal [place] - NS 2 sprays DAILY PRN Administration NASAL CONGESTION Tiotropium [place] 1 puff 01/19/17 10:00 01/22/17 10:16 Spiriva - IH 1 puff DAILY [facility] Administration 1. UTI 2. hyponatremia 3. paralyzed hemidiaphragm 4. HTN 5. valvular heart disease 6. azotemia 7. hypothyroid 8. CAD 9. hypokalemia 10. alkalosis 11. transaminitis 12. anxiety 13. CHF Plan - cxr reviewed - repeat labs in am - will give a salt tab - cardiology follow up - check urine lytes - will repeat osms - follow LFTs, GI eval - keep on tele monitor - will follow Dr Bella
[2017-01-22] MEDS: LIDOCAINE PATCH REMOVAL MC SCH (21:47)
[2017-01-23 06:01] LABS: BASOPHIL 0.2 % (0-2.0); EOSINOPHIL 1.7 % (0-4.5); MCH 26.5 pg (25.7-33.7); MCHC 32.8 g/dl (32.0-36.0); MEAN CELL VOLUME 80.9 fl (80-96); MEAN PLT VOLUME 8.4 fl (7.5-11.1); PLATELET COUNT 382 K/MM3 (134-434); RDW 15.7 % (11.6-15.6); WHITE BLOOD COUNT 12.1 K/mm3 (4.0-10.0)
[2017-01-23] MEDS: LEVOTHYROXINE NA 75 MCG TABLET (FP) PO SCH (06:17)
[2017-01-23] MEDS: HEPARIN NA (PORCINE) 5,000 UNITS/ML 1ML VIAL SQ SCH ×3 (06:17→21:11)
[2017-01-23 06:37] LABS: ALBUMIN 2.6 g/dl (3.4-5.0); ANION GAP 8 (8-16); BILIRUBIN,TOTAL 0.8 mg/dL (0.2-1.0); CALCIUM 8.5 mg/dL (8.5-10.1); CO2 38 mmol/L (21-32); CREATININE 0.6 mg/dL (0.55-1.02); GLUCOSE,RANDOM 76 mg/dL (74-106); SGOT/AST 86 U/L (15-37); SGPT/ALT 178 U/L (12-78); TOT PROT 6.1 g/dl (6.4-8.2)
[2017-01-23 06:38] LABS: ALK PHOS 227 U/L (45-117)
--- NOTE | 2017-01-23 09:11 | PN ---
Progress Note, Physician History of Present Illness: Hypotensive, 86/56, HR 101, lightheaded, not in distress. - Current Medication List Current Medications: Active Medications Alprazolam (Xanax -) 0.25 mg PO DAILY PRN PRN Reason: ANXIETY Aspirin (Asa -) 81 mg PO DAILY [facility] Last Admin: 01/22/17 09:34 Dose: 81 mg Budesonide/Formoterol Fumarate (Symbicort 80/4.5mcg -) 1 puff IH BID [facility] Last Admin: 01/22/17 21:51 Dose: 1 puff Clopidogrel Bisulfate (Plavix -) 75 mg PO DAILY [facility] Last Admin: 01/22/17 09:34 Dose: 75 mg Docusate Sodium (Colace -) 100 mg PO BID [facility] Last Admin: 01/22/17 21:46 Dose: 100 mg Heparin Sodium (Porcine) (Heparin -) 5,000 unit SQ TID [facility] Last Admin: 01/23/17 06:17 Dose: 5,000 unit Levothyroxine Sodium (Synthroid -) 75 mcg PO DAILY@0700 [facility] Last Admin: 01/23/17 06:17 Dose: 75 mcg Lidocaine (Lidoderm Patch -) 1 patch TP DAILY [facility] Last Admin: 01/22/17 09:33 Dose: 1 patch Methyl Salicylate (Malick-Stewart -) 1 applic TP DAILY [facility] Last Admin: 01/22/17 10:18 Dose: Not Given Metoclopramide HCl (Reglan Injection -) 10 mg IVPB Q6H PRN PRN Reason: NAUSEA AND/OR VOMITING Metoprolol Tartrate (Lopressor -) 12.5 mg PO BID [facility] Last Admin: 01/22/17 21:47 Dose: 12.5 mg Miscellaneous (Lidoderm Patch Removal) 1 each MC DAILY@2200 [facility] Last Admin: 01/22/17 21:47 Dose: 1 each Oxycodone HCl (Roxicodone -) 10 mg PO Q6H PRN PRN Reason: PAIN LEVEL 6-10 Last Admin: 01/20/17 09:10 Dose: 10 mg Oxycodone HCl (Roxicodone -) 5 mg PO Q6H PRN PRN Reason: PAIN LEVEL 1-5 Last Admin: 01/20/17 23:18 Dose: 5 mg Sodium Chloride ([place] Nasal [place] -) 2 spray NS DAILY PRN PRN Reason: NASAL CONGESTION Last Admin: 01/20/17 06:16 Dose: 2 sprays Tiotropium [place] (Spiriva -) 1 puff IH DAILY [facility] Last Admin: 01/22/17 10:16 Dose: 1 puff - Objective Vital Signs: Vital Signs Temperature 98 F 01/23/17 06:00 Pulse Rate 88 01/23/17 06:00 Respiratory Rate 20 01/23/17 06:00 Blood Pressure 100/53 01/23/17 06:00 O2 Sat by Pulse Oximetry (%) 100 01/22/17 22:00 Vital Signs - 24 hr 01/22/17 01/22/17 01/22/17 10:00 14:00 18:00 Temperature 97.6 F 98.2 F 98.1 F Pulse Rate 99 H 97 H 103 H Respiratory 18 20 20 Rate Blood Pressure 95/60 95/53 96/49 O2 Sat by Pulse Oximetry (%) 01/22/17 01/22/17 01/23/17 20:00 22:00 00:00 Temperature 98 F Pulse Rate 101 H 102 H 88 Respiratory 18 20 18 Rate Blood Pressure 86/58 99/58 93/57 O2 Sat by Pulse 98 Oximetry (%) 01/23/17 01/23/17 02:17 06:00 Temperature 97.6 F 98 F Pulse Rate 98 H 88 Respiratory 18 20 Rate Blood Pressure 91/49 100/53 O2 Sat by Pulse Oximetry (%) Constitutional: Yes: No Distress, Calm Eyes: Yes: Conjunctiva Clear HENT: Yes: Atraumatic Neck: Yes: Supple Cardiovascular: Yes: Regular Rate and Rhythm, Tachycardia Respiratory: Yes: Regular Gastrointestinal: Yes: Normal Bowel Sounds, Soft. No: Tenderness, Tenderness, Epigastrium, Tenderness, Rebound, Vomiting Labs: CBC, BMP Hepatic Panel Total Bilirubin 0.8 mg/dL (0.2-1.0) 01/23/17 05:00 AST 86 U/L (15-37) H D 01/23/17 05:00 ALT 178 U/L (12-78) H 01/23/17 05:00 Alkaline Phosphatase 227 U/L (45-117) H 01/23/17 05:00 Albumin 2.6 g/dl (3.4-5.0) L 01/23/17 05:00 Active Orders - 24 Hr 01/22/17 09:38 Missing Dose Routine 01/22/17 10:00 Docusate Sodium [Colace -] 100 mg PO BID 01/22/17 15:23 OSMOLALITY,URINE Stat 01/23/17 05:00 BMP [BASIC METABOLIC PANEL] Routine CMP [COMP METABOLIC PANEL] Routine OSMOLALITY,SERUM Routine 01/23/17 07:42 ELECTROLYTES,URINE Stat Vital Signs (72 hours) 01/20/17 01/20/17 01/20/17 09:23 11:57 13:07 Temperature 97.3 F L Pulse Rate 96 H 100 H 104 H Respiratory 20 18 18 Rate Blood Pressure 106/76 100/70 105/85 O2 Sat by Pulse Oximetry (%) 01/20/17 01/20/17 01/20/17 16:00 18:00 20:40 Temperature 98 F Pulse Rate 102 H 101 H 98 H Respiratory 22 22 22 Rate Blood Pressure 90/70 105/71 93/58 O2 Sat by Pulse 96 Oximetry (%) 01/20/17 01/20/17 01/21/17 22:00 23:22 01:35 Temperature 97.8 F 98.4 F Pulse Rate 101 H 102 H 92 H Respiratory 22 22 Rate Blood Pressure 117/60 106/59 91/53 O2 Sat by Pulse Oximetry (%) 01/21/17 01/21/17 01/21/17 02:00 02:16 06:00 Temperature 98 F 98 F 97.8 F Pulse Rate 98 H 95 H Respiratory 23 22 Rate Blood Pressure 90/51 95/47 O2 Sat by Pulse Oximetry (%) 01/21/17 01/21/17 01/21/17 09:00 20:30 20:48 Temperature Pulse Rate 102 H Respiratory 22 22 Rate Blood Pressure 97/67 O2 Sat by Pulse 98 94 L Oximetry (%) 01/21/17 01/22/17 01/22/17 22:00 02:00 04:00 Temperature 98.0 F Pulse Rate 100 H 92 H 92 H Respiratory 22 22 20 Rate Blood Pressure 100/70 92/56 100/79 O2 Sat by Pulse Oximetry (%) 01/22/17 01/22/17 01/22/17 06:00 09:00 10:00 Temperature 97.6 F Pulse Rate 92 H 99 H Respiratory 18 18 Rate Blood Pressure 97/49 95/60 O2 Sat by Pulse 98 Oximetry (%) 01/22/17 01/22/17 01/22/17 14:00 18:00 20:00 Temperature 98.2 F 98.1 F Pulse Rate 97 H 103 H 101 H Respiratory 20 20 18 Rate Blood Pressure 95/53 96/49 86/58 O2 Sat by Pulse Oximetry (%) 01/22/17 01/23/17 01/23/17 22:00 00:00 02:17 Temperature 98 F 97.6 F Pulse Rate 102 H 88 98 H Respiratory 20 18 18 Rate Blood Pressure 99/58 93/57 91/49 O2 Sat by Pulse 98 Oximetry (%) 01/23/17 06:00 Temperature 98 F Pulse Rate 88 Respiratory 20 Rate Blood Pressure 100/53 O2 Sat by Pulse Oximetry (%) Problem List - Problems (1) Elevated alkaline phosphatase level Assessment/Plan: Minimal improvement, values trending down. Avoid NSAIDs and acetaminophen if possible Maintain adequate perfusion Daily hepatic enzymes (ordered) Will follow Code(s): R74.8 - ABNORMAL LEVELS OF OTHER SERUM ENZYMES (2) Transaminasemia Code(s): R74.0 - NONSPEC ELEV OF LEVELS OF TRANSAMNS & LACTIC ACID DEHYDRGNSE
[2017-01-23] MEDS: CLOPIDOGREL BISULFATE 75 MG TABLET (FP) PO SCH (10:36)
[2017-01-23] MEDS: LIDOCAINE 5% TOPICAL PATCH TP SCH (10:36)
[2017-01-23] MEDS: METHYL SALICYLATE/MENTHOL OINT 30 GM TUBE TP SCH (10:37)
[2017-01-23] MEDS: DOCUSATE SODIUM 100 MG CAPSULE (FP) PO SCH ×2 (10:37→21:11)
[2017-01-23] MEDS: ASPIRIN 81 MG CHEWABLE TABLETS PO SCH (10:37)
[2017-01-23] MEDS ORDERED: PT OWN MED DRAWER 7, Y5N ONE (10:43)
[2017-01-23] MEDS: BUDESONIDE/FORMETEROL FUMARATE 80/4.5 mcg INHALER IH SCH ×2 (10:46→21:11)
[2017-01-23] MEDS: TIOTROPIUM BROMIDE 18 MCG/INH (DEVICE W/ 5 CAPSULES) IH SCH (10:46)
[2017-01-23 11:35] LABS: OSMOLALITY,SERUM 272 mosm/kg (278-305)
--- NOTE | 2017-01-23 12:17 | PN ---
Progress Note, Physician History of Present Illness: 81 year old woman with a history of HTN, HLD, CAD s/p CABG, AVR, Chronic combined systolic/diastolic CHF, severe LV systolic dysfunction s/p Bi-V ICD, paralyzed L cosme-diaphragm, admitted for nausea, vomiting, abdominal pain, UTI possible urosepsis, hypotension. - Current Medication List Current Medications: Active Medications Alprazolam (Xanax -) 0.25 mg PO DAILY PRN PRN Reason: ANXIETY Aspirin (Asa -) 81 mg PO DAILY [facility] Last Admin: 01/23/17 10:37 Dose: 81 mg Budesonide/Formoterol Fumarate (Symbicort 80/4.5mcg -) 1 puff IH BID [facility] Last Admin: 01/23/17 10:46 Dose: 1 puff Clopidogrel Bisulfate (Plavix -) 75 mg PO DAILY [facility] Last Admin: 01/23/17 10:36 Dose: 75 mg Docusate Sodium (Colace -) 100 mg PO BID [facility] Last Admin: 01/23/17 10:37 Dose: 100 mg Heparin Sodium (Porcine) (Heparin -) 5,000 unit SQ TID [facility] Last Admin: 01/23/17 06:17 Dose: 5,000 unit Levothyroxine Sodium (Synthroid -) 75 mcg PO DAILY@0700 [facility] Last Admin: 01/23/17 06:17 Dose: 75 mcg Lidocaine (Lidoderm Patch -) 1 patch TP DAILY [facility] Last Admin: 01/23/17 10:36 Dose: 1 patch Methyl Salicylate (Malick-Stewart -) 1 applic TP DAILY [facility] Last Admin: 01/23/17 10:37 Dose: 1 applic Metoclopramide HCl (Reglan Injection -) 10 mg IVPB Q6H PRN PRN Reason: NAUSEA AND/OR VOMITING Metoprolol Tartrate (Lopressor -) 12.5 mg PO BID [facility] Last Admin: 01/22/17 21:47 Dose: 12.5 mg Miscellaneous (Lidoderm Patch Removal) 1 each MC DAILY@2200 [facility] Last Admin: 01/22/17 21:47 Dose: 1 each Oxycodone HCl (Roxicodone -) 10 mg PO Q6H PRN PRN Reason: PAIN LEVEL 6-10 Last Admin: 01/20/17 09:10 Dose: 10 mg Oxycodone HCl (Roxicodone -) 5 mg PO Q6H PRN PRN Reason: PAIN LEVEL 1-5 Last Admin: 01/20/17 23:18 Dose: 5 mg Sodium Chloride ([place] Nasal [place] -) 2 spray NS DAILY PRN PRN Reason: NASAL CONGESTION Last Admin: 01/20/17 06:16 Dose: 2 sprays Tiotropium [place] (Spiriva -) 1 puff IH DAILY [facility] Last Admin: 01/23/17 10:46 Dose: 1 puff - Objective Vital Signs: Vital Signs Temperature 98 F 01/23/17 06:00 Pulse Rate 107 H 01/23/17 09:32 Respiratory Rate 20 01/23/17 06:00 Blood Pressure 100/53 01/23/17 06:00 O2 Sat by Pulse Oximetry (%) 97 01/23/17 09:32 Eyes: Yes: WNL, Conjunctiva Clear, EOM Intact HENT: Yes: WNL, Atraumatic, Normocephalic Neck: Yes: WNL, Supple, Trachea Midline Cardiovascular: Yes: WNL, Regular Rate and Rhythm Respiratory: Yes: WNL, Regular, CTA Bilaterally Gastrointestinal: Yes: WNL, Normal Bowel Sounds Genitourinary: Yes: WNL Musculoskeletal: Yes: WNL Extremities: Yes: WNL Edema: No Integumentary: Yes: WNL Neurological: Yes: WNL, Alert, Oriented ...Motor Strength: WNL Psychiatric: Yes: WNL Labs: CBC, BMP 01/23/17 05:00 01/23/17 05:00 INR, PTT INR 1.12 (0.82-1.09) 01/12/17 15:45 Problem List - Problems (1) DVT prophylaxis Code(s): [id number] - (2) Hypokalemia Code(s): E87.6 - HYPOKALEMIA (3) Hyponatremia Code(s): E87.1 - HYPO-OSMOLALITY AND HYPONATREMIA (4) UTI (urinary tract infection) Code(s): N39.0 - URINARY TRACT INFECTION, SITE NOT SPECIFIED Qualifiers: Urinary tract infection type: site unspecified Hematuria presence: without hematuria Qualified Code(s): N39.0 - Urinary tract infection, site not specified; N39.0 - Urinary tract infection, site not specified; R31.9 - Hematuria, unspecified; R31.9 - Hematuria, unspecified (5) Acute on chronic systolic CHF (congestive heart failure) Code(s): I50.23 - ACUTE ON CHRONIC SYSTOLIC (CONGESTIVE) HEART FAILURE (6) CHF NYHA class III Code(s): I50.9 - HEART FAILURE, UNSPECIFIED (7) CHF exacerbation Code(s): I50.9 - HEART FAILURE, UNSPECIFIED Qualifiers: Congestive heart failure type: unspecified congestive heart failure type Qualified Code(s): I50.9 - Heart failure, unspecified; I50.9 - Heart failure , unspecified; I50.9 - Heart failure, unspecified; I50.9 - Heart failure, unspecified (8) COPD (chronic obstructive pulmonary disease) Code(s): J44.9 - CHRONIC OBSTRUCTIVE PULMONARY DISEASE, UNSPECIFIED (9) Chronic hypoxemic respiratory failure Code(s): J96.11 - CHRONIC RESPIRATORY FAILURE WITH HYPOXIA (10) Diaphragm paralysis Code(s): J98.6 - DISORDERS OF DIAPHRAGM (11) Leukocytosis Code(s): D72.829 - ELEVATED WHITE BLOOD CELL COUNT, UNSPECIFIED (12) Nonsustained ventricular tachycardia Code(s): I47.2 - VENTRICULAR TACHYCARDIA (13) Respiratory failure Code(s): J96.90 - RESPIRATORY FAILURE, UNSP, UNSP W HYPOXIA OR HYPERCAPNIA (14) Shortness of breath Code(s): R06.02 - SHORTNESS OF BREATH (15) Systolic and diastolic CHF w/reduced LV function, NYHA class 4 Code(s): I50.40 - UNSP COMBINED SYSTOLIC AND DIASTOLIC (CONGESTIVE) HRT FAIL (16) Anxiety Code(s): F41.9 - ANXIETY DISORDER, UNSPECIFIED (17) Anxiety 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 Code(s): F41.0 - PANIC DISORDER [EPISODIC PAROXYSMAL ANXIETY] (18) Aortic valve replaced Code(s): Z95.2 - PRESENCE OF PROSTHETIC HEART VALVE (19) CAD (coronary artery disease) Code(s): I25.10 - ATHSCL HEART DISEASE OF [place] CORONARY ARTERY W/O ANG PCTRS (20) CHF (congestive heart failure) Code(s): I50.9 - HEART FAILURE, UNSPECIFIED Qualifiers: Congestive heart failure type: unspecified congestive heart failure type Congestive heart failure chronicity: unspecified congestive heart failure chronicity Qualified Code(s): I50.9 - Heart failure, unspecified; I50.9 - Heart failure, unspecified; I50.9 - Heart failure, unspecified; I50.9 - Heart failure, unspecified (21) COPD bronchitis Code(s): J44.9 - CHRONIC OBSTRUCTIVE PULMONARY DISEASE, UNSPECIFIED (22) Diabetes Code(s): E11.9 - TYPE 2 DIABETES MELLITUS WITHOUT COMPLICATIONS (23) Hx of CABG Code(s): Z95.1 - PRESENCE OF AORTOCORONARY BYPASS GRAFT (24) Hyperlipidemia Code(s): E78.5 - HYPERLIPIDEMIA, UNSPECIFIED (25) Hypertension Code(s): I10 - ESSENTIAL (PRIMARY) HYPERTENSION (26) Hypothyroidism Code(s): E03.9 - HYPOTHYROIDISM, UNSPECIFIED (27) ICD (implantable cardioverter-defibrillator) in place Code(s): Z95.810 - PRESENCE OF AUTOMATIC (IMPLANTABLE) CARDIAC DEFIBRILLATOR (28) Multiple allergies Code(s): Z88.9 - ALLERGY STATUS TO UNSP DRUG/MEDS/BIOL SUBST STATUS (29) Obese Code(s): E66.9 - OBESITY, UNSPECIFIED (30) Sleep apnea in adult Code(s): G47.33 - OBSTRUCTIVE SLEEP APNEA (ADULT) (PEDIATRIC) (31) Valvular heart disease Code(s): I38 - ENDOCARDITIS, VALVE UNSPECIFIED Assessment/Plan - Problems (1) Anxiety 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 Assessment/Plan: On medications; psychologist may be of benefit. Code(s): F41.0 - PANIC DISORDER [EPISODIC PAROXYSMAL ANXIETY] (2) CAD (coronary artery disease) Code(s): I25.10 - ATHSCL HEART DISEASE OF [place] CORONARY ARTERY W/O ANG PCTRS (3) COPD bronchitis Code(s): J44.9 - CHRONIC OBSTRUCTIVE PULMONARY DISEASE, UNSPECIFIED (4) Diabetes Code(s): E11.9 - TYPE 2 DIABETES MELLITUS WITHOUT COMPLICATIONS (5) Hx of CABG Code(s): Z95.1 - PRESENCE OF AORTOCORONARY BYPASS GRAFT (6) Hyperlipidemia Code(s): E78.5 - HYPERLIPIDEMIA, UNSPECIFIED (7) Hypertension Code(s): I10 - ESSENTIAL (PRIMARY) HYPERTENSION (8) Hypothyroidism Code(s): E03.9 - HYPOTHYROIDISM, UNSPECIFIED (9) ICD (implantable cardioverter-defibrillator) in place Assessment/Plan: Pt reports no shocks. Code(s): Z95.810 - PRESENCE OF AUTOMATIC (IMPLANTABLE) CARDIAC DEFIBRILLATOR (10) Sleep apnea in adult Code(s): G47.33 - OBSTRUCTIVE SLEEP APNEA (ADULT) (PEDIATRIC) (11) Valvular heart disease Code(s): I38 - ENDOCARDITIS, VALVE UNSPECIFIED (12) Acute on chronic systolic and diastolic heart failure, NYHA class 4 Assessment/Plan: Now off dopamine (given for hypotension and transient anuria). Restarted metoprolol (systolic CHF; PAF); increase dosage gradually as BP allows. Periods of hypotension and hyperkalemia make ACEI or Aldactone problematic; restart low-dose ACEI or ARB cautiously if BP and electrolytes allow when possible. On furosemide. Is and Os, daily weight; BUN/Cr; electrolytes. Code(s): I50.43 - ACUTE ON CHRONIC COMBINED SYSTOLIC AND DIASTOLIC HRT FAIL (13) Aortic valve replaced Code(s): Z95.2 - PRESENCE OF PROSTHETIC HEART VALVE (14) Fatty liver Assessment/Plan: hepatomegaly; fatty liver. Meds reviewed, currently not on statin or amio or other cardiac med that would cause LFT elevation F/u with GI. Code(s): K76.0 - FATTY (CHANGE OF) LIVER, NOT ELSEWHERE CLASSIFIED
--- NOTE | 2017-01-23 13:04 | PN ---
Progress Note, Physician History of Present Illness: Pt seen and examined at bedside. She is awake and alert. She denies chest pain. - Current Medication List Current Medications: Active Medications Alprazolam (Xanax -) 0.25 mg PO DAILY PRN PRN Reason: ANXIETY Aspirin (Asa -) 81 mg PO DAILY [facility] Last Admin: 01/23/17 10:37 Dose: 81 mg Budesonide/Formoterol Fumarate (Symbicort 80/4.5mcg -) 1 puff IH BID [facility] Last Admin: 01/23/17 10:46 Dose: 1 puff Clopidogrel Bisulfate (Plavix -) 75 mg PO DAILY [facility] Last Admin: 01/23/17 10:36 Dose: 75 mg Docusate Sodium (Colace -) 100 mg PO BID [facility] Last Admin: 01/23/17 10:37 Dose: 100 mg Heparin Sodium (Porcine) (Heparin -) 5,000 unit SQ TID [facility] Last Admin: 01/23/17 06:17 Dose: 5,000 unit Levothyroxine Sodium (Synthroid -) 75 mcg PO DAILY@0700 [facility] Last Admin: 01/23/17 06:17 Dose: 75 mcg Lidocaine (Lidoderm Patch -) 1 patch TP DAILY [facility] Last Admin: 01/23/17 10:36 Dose: 1 patch Methyl Salicylate (Malick-Stewart -) 1 applic TP DAILY [facility] Last Admin: 01/23/17 10:37 Dose: 1 applic Metoclopramide HCl (Reglan Injection -) 10 mg IVPB Q6H PRN PRN Reason: NAUSEA AND/OR VOMITING Metoprolol Tartrate (Lopressor -) 12.5 mg PO BID [facility] Last Admin: 01/22/17 21:47 Dose: 12.5 mg Miscellaneous (Lidoderm Patch Removal) 1 each MC DAILY@2200 [facility] Last Admin: 01/22/17 21:47 Dose: 1 each Oxycodone HCl (Roxicodone -) 10 mg PO Q6H PRN PRN Reason: PAIN LEVEL 6-10 Last Admin: 01/20/17 09:10 Dose: 10 mg Oxycodone HCl (Roxicodone -) 5 mg PO Q6H PRN PRN Reason: PAIN LEVEL 1-5 Last Admin: 01/20/17 23:18 Dose: 5 mg Sodium Chloride ([place] Nasal [place] -) 2 spray NS DAILY PRN PRN Reason: NASAL CONGESTION Last Admin: 01/20/17 06:16 Dose: 2 sprays Tiotropium [place] (Spiriva -) 1 puff IH DAILY [facility] Last Admin: 01/23/17 10:46 Dose: 1 puff - Objective Vital Signs: Vital Signs Temperature 98 F 01/23/17 06:00 Pulse Rate 106 H 01/23/17 10:00 Respiratory Rate 21 01/23/17 10:00 Blood Pressure 102/56 01/23/17 10:00 O2 Sat by Pulse Oximetry (%) 97 01/23/17 09:32 Constitutional: Yes: Calm Eyes: Yes: Conjunctiva Clear HENT: Yes: Atraumatic Cardiovascular: Yes: S1, S2 Respiratory: Yes: On Nasal O2 Gastrointestinal: Yes: Soft Genitourinary: Yes: WNL Edema: Yes Neurological: Yes: Oriented Psychiatric: Yes: Oriented Labs: CBC, BMP 01/23/17 05:00 01/23/17 05:00 INR, PTT INR 1.12 (0.82-1.09) 01/12/17 15:45 Problem List - Problems (1) Hypokalemia Code(s): E87.6 - HYPOKALEMIA (2) Hyponatremia Code(s): E87.1 - HYPO-OSMOLALITY AND HYPONATREMIA (3) UTI (urinary tract infection) Code(s): N39.0 - URINARY TRACT INFECTION, SITE NOT SPECIFIED Qualifiers: Urinary tract infection type: site unspecified Hematuria presence: without hematuria Qualified Code(s): N39.0 - Urinary tract infection, site not specified; N39.0 - Urinary tract infection, site not specified; R31.9 - Hematuria, unspecified; R31.9 - Hematuria, unspecified (4) Acute on chronic systolic CHF (congestive heart failure) Code(s): I50.23 - ACUTE ON CHRONIC SYSTOLIC (CONGESTIVE) HEART FAILURE (5) COPD (chronic obstructive pulmonary disease) Code(s): J44.9 - CHRONIC OBSTRUCTIVE PULMONARY DISEASE, UNSPECIFIED Assessment/Plan Current Medications Generic Name Dose Route Start Last Admin Trade Name Freq PRN Reason Stop Dose Admin Alprazolam 0.25 mg 01/21/17 15:15 Xanax - PO DAILY PRN ANXIETY Aspirin 81 mg 01/19/17 10:00 01/23/17 10:37 Asa - PO 81 mg DAILY [facility] Administration Budesonide/Formoterol Fumarate 1 puff 01/18/17 22:00 01/23/17 10:46 Symbicort 80/4.5mcg - IH 1 puff BID [facility] Administration Clopidogrel Bisulfate 75 mg 01/19/17 10:00 01/23/17 10:36 Plavix - PO 75 mg DAILY [facility] Administration Docusate Sodium 100 mg 01/22/17 10:00 01/23/17 10:37 Colace - PO 100 mg BID [facility] Administration Heparin Sodium (Porcine) 5,000 unit 01/18/17 22:00 01/23/17 06:17 Heparin - SQ 5,000 unit TID [facility] Administration Levothyroxine Sodium 75 mcg 01/19/17 07:00 01/23/17 06:17 Synthroid - PO 75 mcg DAILY@0700 [facility] Administration Lidocaine 1 patch 01/19/17 10:00 01/23/17 10:36 Lidoderm Patch - TP 1 patch DAILY [facility] Administration Methyl Salicylate 1 applic 01/19/17 16:15 01/23/17 10:37 Malick-Stewart - TP 1 applic DAILY [facility] Administration Metoclopramide HCl 10 mg 01/18/17 19:41 Reglan Injection - IVPB Q6H PRN NAUSEA AND/OR VOMITING Metoprolol Tartrate 12.5 mg 01/18/17 22:00 01/22/17 21:47 Lopressor - PO 12.5 mg BID [facility] Administration Miscellaneous 1 each 01/18/17 22:00 01/22/17 21:47 Lidoderm Patch Removal MC 1 each DAILY@2200 [facility] Administration Oxycodone HCl 10 mg 01/18/17 19:41 01/20/17 09:10 Roxicodone - PO 10 mg Q6H PRN Administration PAIN LEVEL 6-10 Oxycodone HCl 5 mg 01/18/17 19:41 01/20/17 23:18 Roxicodone - PO 5 mg Q6H PRN Administration PAIN LEVEL 1-5 Sodium Chloride 2 spray 01/19/17 19:37 01/20/17 06:16 [place] Nasal [place] - NS 2 sprays DAILY PRN Administration NASAL CONGESTION Tiotropium [place] 1 puff 01/19/17 10:00 01/23/17 10:46 Spiriva - IH 1 puff DAILY [facility] Administration 1. UTI 2. hyponatremia 3. paralyzed hemidiaphragm 4. HTN 5. valvular heart disease 6. azotemia 7. hypothyroid 8. CAD 9. hypokalemia resolved 10. alkalosis 11. transaminitis 12. anxiety 13. CHF 14. hyperkalemia Plan - restart lasix - repeat labs in am - monitor glucose - pt now has increased edema in her legs - repeat cxr in am - follow LFTs, GI eval - keep on tele monitor - will follow Dr Bella
--- NOTE | 2017-01-23 13:21 | PN ---
Physical Exam: SUBJECTIVE: Patient seen and examined. She says she is tired and lightheaded. BP improved, would like to move to chair. Events: - Hypotensive and lightheaded this AM - K 5.4 OBJECTIVE: Vital Signs Period Temp Pulse Resp BP Sys/Camilo Pulse Ox Last 24 Hr 97.6 F-98.2 F 88-107 18-21 86-102/49-58 97-100 PE Neuro: alert, awake, cn 2-12 Heent: flushed Pulm: basilar rales, rhonchi +nc CV: s1 s2 rrr +systolic murmur Abd: s nt nd + bs Ext: +1 edema bilaterally, warm le Laboratory Results - last 24 hr 01/23/17 01/23/17 01/23/17 05:00 05:00 07:30 WBC 12.1 H RBC 4.08 Hgb 10.8 Hct 33.0 MCV 80.9 MCH 26.5 MCHC 32.8 RDW 15.7 H Plt Count 382 MPV 8.4 Neutrophils % 77.0 Lymphocytes % 8.8 Monocytes % 12.3 H Eosinophils % 1.7 Basophils % 0.2 Sodium 128 L Potassium 5.4 H Chloride 82 L Carbon Dioxide 38 H Anion Gap 8 BUN 28 H D Creatinine 0.6 Creat Clearance w eGFR > 60 Random Glucose 76 Serum Osmolality 272 L Calcium 8.5 Total Bilirubin 0.8 AST 86 H D ALT 178 H Alkaline Phosphatase 227 H Total Protein 6.1 L Albumin 2.6 L Ur Random Sodium 9 Ur Random Potassium 41.1 Ur Random Chloride 11 Active Medications Generic Name Dose Route Start Last Admin Trade Name Freq PRN Reason Stop Dose Admin Alprazolam 0.25 mg 01/21/17 15:15 Xanax - PO DAILY PRN ANXIETY Aspirin 81 mg 01/19/17 10:00 01/23/17 10:37 Asa - PO 81 mg DAILY [facility] Administration Budesonide/Formoterol Fumarate 1 puff 01/18/17 22:00 01/23/17 10:46 Symbicort 80/4.5mcg - IH 1 puff BID [facility] Administration Clopidogrel Bisulfate 75 mg 01/19/17 10:00 01/23/17 10:36 Plavix - PO 75 mg DAILY [facility] Administration Docusate Sodium 100 mg 01/22/17 10:00 01/23/17 10:37 Colace - PO 100 mg BID [facility] Administration Furosemide 40 mg 01/23/17 14:00 Lasix - PO BID@0600,1400 [facility] Heparin Sodium (Porcine) 5,000 unit 01/18/17 22:00 01/23/17 06:17 Heparin - SQ 5,000 unit TID [facility] Administration Levothyroxine Sodium 75 mcg 01/19/17 07:00 01/23/17 06:17 Synthroid - PO 75 mcg DAILY@0700 [facility] Administration Lidocaine 1 patch 01/19/17 10:00 01/23/17 10:36 Lidoderm Patch - TP 1 patch DAILY [facility] Administration Methyl Salicylate 1 applic 01/19/17 16:15 01/23/17 10:37 Malick-Stewart - TP 1 applic DAILY [facility] Administration Metoclopramide HCl 10 mg 01/18/17 19:41 Reglan Injection - IVPB Q6H PRN NAUSEA AND/OR VOMITING Metoprolol Tartrate 12.5 mg 01/18/17 22:00 01/22/17 21:47 Lopressor - PO 12.5 mg BID [facility] Administration Miscellaneous 1 each 01/18/17 22:00 01/22/17 21:47 Lidoderm Patch Removal MC 1 each DAILY@2200 [facility] Administration Oxycodone HCl 10 mg 01/18/17 19:41 01/20/17 09:10 Roxicodone - PO 10 mg Q6H PRN Administration PAIN LEVEL 6-10 Oxycodone HCl 5 mg 01/18/17 19:41 01/20/17 23:18 Roxicodone - PO 5 mg Q6H PRN Administration PAIN LEVEL 1-5 Sodium Chloride 2 spray 01/19/17 19:37 01/20/17 06:16 [place] Nasal [place] - NS 2 sprays DAILY PRN Administration NASAL CONGESTION Tiotropium [place] 1 puff 01/19/17 10:00 01/23/17 10:46 Spiriva - IH 1 puff DAILY [facility] Administration Imaging: - ECHO 01/16: LVSF severely reduced, LV mildly dilated, bioprosthetic valve, Mod TR, MR, RVSF mod-severe reduced, - Liver ultrasound with hepatomegaly and diffuse fatty infiltration of the liver Assessment: 81 year old female with PMHx of HTN, hyperlipidemia, CAD s/p CABG, AVR, severe LV systolic dysfunction s/p Bi-V ICD, combined systolic and diastolic heart failure, hypothyroidism admitted with dysuria, right flank pain. Plan: 1. Cardiogenic shock, acute on chronic systolic and diastolic heart failure, severe LV systolic dysfunction - Shock resolved, s/p dopamine - Continue low dose metoprolol 12.5mg BID - Lasix 40mg IV BID - FERNANDO/ARB problematic in past d/t electrolyte disturbances 2. HTN - Hypotensive today 3. Transaminitis - Continues to down trend - Trend daily - Hold Zocor 4. CAD s/p CABG, AVR - Continue ASA - Continue Plavix 5. NSVT - No sustained arrhythmias overnight 6. Suspected sepsis 2/2 UTI - Urine culture negative - Off all abx 7. BETTIE - Resolved 8. Hypothyroidism - Continue [id number] daily 9. Hyponatremia - Improving 10. Hyperkalemia - Check BMP in am 11. Hyperlipidemia - Hold Zocor 12. PPX - Heparin 5,000u sq tid Visit type - Emergency Visit Emergency Visit: Yes ED Registration Date: 01/12/17 Care time: The patient presented to the Emergency Department on the above date and was hospitalized for further evaluation of their emergent condition. - New Patient This patient is new to me today: Yes Date on this admission: 01/23/17 - Critical Care Critical Care patient: No
[2017-01-23] MEDS: FUROSEMIDE 40 MG TABLET (FP) PO SCH (14:04)
[2017-01-23] MEDS: METOPROLOL TARTRATE 25 MG TABLET (FP) PO SCH ×2 (14:05→21:10)
[2017-01-23] MEDS ORDERED: guaiFENesin 200 MG/10 ML 10 ML UNIT-DOSE CUPS PO PRN (14:46)
--- NOTE | 2017-01-23 15:07 | PN ---
Progress Note (short form) - Note Progress Note: Patient seen and examined on Telemetry. Awake and alert. Denies CP or SOB. No acute events overnight. General fatigue. OBJECTIVE: Intake & Output 01/20/17 01/21/17 01/22/17 01/23/17 23:59 23:59 23:59 23:59 Intake Total 720 450 350 150 Output Total 800 250 Balance -80 200 350 150 Weight 157 lb 6.4 oz 161 lb 12.8 oz 159 lb Last Vital Signs Temp Pulse Resp BP Pulse Ox 97.9 F 111 H 22 101/47 97 01/23/17 13:50 01/23/17 13:50 01/23/17 13:50 01/23/17 13:50 01/23/17 09:32 Active Medications Alprazolam (Xanax -) 0.25 mg PO DAILY PRN PRN Reason: ANXIETY Aspirin (Asa -) 81 mg PO DAILY [facility] Last Admin: 01/23/17 10:37 Dose: 81 mg Budesonide/Formoterol Fumarate (Symbicort 80/4.5mcg -) 1 puff IH BID [facility] Last Admin: 01/23/17 10:46 Dose: 1 puff Clopidogrel Bisulfate (Plavix -) 75 mg PO DAILY [facility] Last Admin: 01/23/17 10:36 Dose: 75 mg Docusate Sodium (Colace -) 100 mg PO BID [facility] Last Admin: 01/23/17 10:37 Dose: 100 mg Furosemide (Lasix -) 40 mg PO BID@0600,1400 [facility] Last Admin: 01/23/17 14:04 Dose: 40 mg Guaifenesin (Robitussin -) 10 ml PO Q6H PRN PRN Reason: COUGH Heparin Sodium (Porcine) (Heparin -) 5,000 unit SQ TID [facility] Last Admin: 01/23/17 14:05 Dose: 5,000 unit Levothyroxine Sodium (Synthroid -) 75 mcg PO DAILY@0700 [facility] Last Admin: 01/23/17 06:17 Dose: 75 mcg Lidocaine (Lidoderm Patch -) 1 patch TP DAILY [facility] Last Admin: 01/23/17 10:36 Dose: 1 patch Methyl Salicylate (Malick-Stewart -) 1 applic TP DAILY [facility] Last Admin: 01/23/17 10:37 Dose: 1 applic Metoclopramide HCl (Reglan Injection -) 10 mg IVPB Q6H PRN PRN Reason: NAUSEA AND/OR VOMITING Metoprolol Tartrate (Lopressor -) 12.5 mg PO BID [facility] Last Admin: 01/23/17 14:05 Dose: Not Given Miscellaneous (Lidoderm Patch Removal) 1 each MC DAILY@2200 [facility] Last Admin: 01/22/17 21:47 Dose: 1 each Oxycodone HCl (Roxicodone -) 10 mg PO Q6H PRN PRN Reason: PAIN LEVEL 6-10 Last Admin: 01/20/17 09:10 Dose: 10 mg Oxycodone HCl (Roxicodone -) 5 mg PO Q6H PRN PRN Reason: PAIN LEVEL 1-5 Last Admin: 01/20/17 23:18 Dose: 5 mg Sodium Chloride ([place] Nasal [place] -) 2 spray NS DAILY PRN PRN Reason: NASAL CONGESTION Last Admin: 01/20/17 06:16 Dose: 2 sprays Tiotropium [place] (Spiriva -) 1 puff IH DAILY [facility] Last Admin: 01/23/17 10:46 Dose: 1 puff Gen: Awake and alert Heart: RRR Lung: scattered rhonchi Abd: soft, nontender Ext: no edema Laboratory Results - last 24 hr 01/23/17 01/23/17 01/23/17 05:00 05:00 07:30 WBC 12.1 H RBC 4.08 Hgb 10.8 Hct 33.0 MCV 80.9 MCH 26.5 MCHC 32.8 RDW 15.7 H Plt Count 382 MPV 8.4 Neutrophils % 77.0 Lymphocytes % 8.8 Monocytes % 12.3 H Eosinophils % 1.7 Basophils % 0.2 Sodium 128 L Potassium 5.4 H Chloride 82 L Carbon Dioxide 38 H Anion Gap 8 BUN 28 H D Creatinine 0.6 Creat Clearance w eGFR > 60 Random Glucose 76 Serum Osmolality 272 L Calcium 8.5 Total Bilirubin 0.8 AST 86 H D ALT 178 H Alkaline Phosphatase 227 H Total Protein 6.1 L Albumin 2.6 L Ur Random Sodium 9 Ur Random Potassium 41.1 Ur Random Chloride 11 ASSESSMENT AND PLAN: UTI Septic vs Cardiogenic Shock improving Severe LV Systolic Dysfunction s/p Bi-V ICD Atrial Fibrillation Mitral Regurgitation Pulmonary HTN s/p AVR CAD COPD Hyponatremia Hypothyroidism Transaminitis : possibly due to low flow state / BiV failure - rate control - ASA, plavix - O2 to keep Spo2 >90% - antibiotics completed - inhaled bronchodilators - PO as tolerated - DVT prophylaxis Dr Payton
[2017-01-23] MEDS: LIDOCAINE PATCH REMOVAL MC SCH (21:11)
[2017-01-24 06:02] LABS: BASOPHIL 0.2 % (0-2.0); EOSINOPHIL 0.9 % (0-4.5); MCH 26.9 pg (25.7-33.7); MCHC 33.4 g/dl (32.0-36.0); MEAN CELL VOLUME 80.4 fl (80-96); MEAN PLT VOLUME 8.1 fl (7.5-11.1); NEUTROPHILS 80.3 % (42.8-82.8); PLATELET COUNT 368 K/MM3 (134-434); RDW 15.8 % (11.6-15.6); WHITE BLOOD COUNT 12.2 K/mm3 (4.0-10.0)
[2017-01-24] MEDS: LEVOTHYROXINE NA 75 MCG TABLET (FP) PO SCH (06:10)
[2017-01-24] MEDS: HEPARIN NA (PORCINE) 5,000 UNITS/ML 1ML VIAL SQ SCH ×3 (06:10→21:13)
[2017-01-24] MEDS: FUROSEMIDE 40 MG TABLET (FP) PO SCH ×2 (06:10→13:14)
[2017-01-24 06:37] LABS: ALBUMIN 2.4 g/dl (3.4-5.0); ANION GAP 11 (8-16); CALCIUM 8.5 mg/dL (8.5-10.1); CO2 36 mmol/L (21-32); GLUCOSE,RANDOM 87 mg/dL (74-106)
[2017-01-24 06:41] LABS: ALK PHOS 198 U/L (45-117); CREATININE 0.5 mg/dL (0.55-1.02); SGOT/AST 52 U/L (15-37); SGPT/ALT 129 U/L (12-78)
[2017-01-24] MEDS: METOPROLOL TARTRATE 25 MG TABLET (FP) PO SCH ×2 (09:01→21:13)
[2017-01-24] MEDS: CLOPIDOGREL BISULFATE 75 MG TABLET (FP) PO SCH (09:01)
[2017-01-24] MEDS: DOCUSATE SODIUM 100 MG CAPSULE (FP) PO SCH ×2 (09:01→21:13)
[2017-01-24] MEDS: ASPIRIN 81 MG CHEWABLE TABLETS PO SCH (09:01)
[2017-01-24] MEDS: BUDESONIDE/FORMETEROL FUMARATE 80/4.5 mcg INHALER IH SCH ×2 (09:02→21:13)
[2017-01-24] MEDS: LIDOCAINE 5% TOPICAL PATCH TP SCH (09:02)
[2017-01-24] MEDS: METHYL SALICYLATE/MENTHOL OINT 30 GM TUBE TP SCH (09:03)
--- NOTE | 2017-01-24 09:29 | PN ---
Progress Note, Physician History of Present Illness: No events. Comfortable. - Current Medication List Current Medications: Active Medications Alprazolam (Xanax -) 0.25 mg PO DAILY PRN PRN Reason: ANXIETY Aspirin (Asa -) 81 mg PO DAILY [facility] Last Admin: 01/24/17 09:01 Dose: 81 mg Budesonide/Formoterol Fumarate (Symbicort 80/4.5mcg -) 1 puff IH BID [facility] Last Admin: 01/24/17 09:02 Dose: 1 puff Clopidogrel Bisulfate (Plavix -) 75 mg PO DAILY [facility] Last Admin: 01/24/17 09:01 Dose: 75 mg Docusate Sodium (Colace -) 100 mg PO BID [facility] Last Admin: 01/24/17 09:01 Dose: 100 mg Furosemide (Lasix -) 40 mg PO BID@0600,1400 [facility] Last Admin: 01/24/17 06:10 Dose: 40 mg Guaifenesin (Robitussin -) 10 ml PO Q6H PRN PRN Reason: COUGH Heparin Sodium (Porcine) (Heparin -) 5,000 unit SQ TID [facility] Last Admin: 01/24/17 06:10 Dose: 5,000 unit Levothyroxine Sodium (Synthroid -) 75 mcg PO DAILY@0700 [facility] Last Admin: 01/24/17 06:10 Dose: 75 mcg Lidocaine (Lidoderm Patch -) 1 patch TP DAILY [facility] Last Admin: 01/24/17 09:02 Dose: 1 patch Methyl Salicylate (Malick-Stewart -) 1 applic TP DAILY [facility] Last Admin: 01/24/17 09:03 Dose: 1 applic Metoclopramide HCl (Reglan Injection -) 10 mg IVPB Q6H PRN PRN Reason: NAUSEA AND/OR VOMITING Metoprolol Tartrate (Lopressor -) 12.5 mg PO BID [facility] Last Admin: 01/24/17 09:01 Dose: 12.5 mg Miscellaneous (Lidoderm Patch Removal) 1 each MC DAILY@2200 [facility] Last Admin: 01/23/17 21:11 Dose: 1 each Oxycodone HCl (Roxicodone -) 10 mg PO Q6H PRN PRN Reason: PAIN LEVEL 6-10 Last Admin: 01/20/17 09:10 Dose: 10 mg Oxycodone HCl (Roxicodone -) 5 mg PO Q6H PRN PRN Reason: PAIN LEVEL 1-5 Last Admin: 01/20/17 23:18 Dose: 5 mg Sodium Chloride ([place] Nasal [place] -) 2 spray NS DAILY PRN PRN Reason: NASAL CONGESTION Last Admin: 01/20/17 06:16 Dose: 2 sprays Tiotropium [place] (Spiriva -) 1 puff IH DAILY [facility] Last Admin: 01/23/17 10:46 Dose: 1 puff - Objective Vital Signs: Vital Signs Temperature 98.0 F 01/24/17 06:00 Pulse Rate 97 H 01/24/17 06:00 Respiratory Rate 22 01/24/17 06:00 Blood Pressure 106/54 01/24/17 06:00 O2 Sat by Pulse Oximetry (%) 97 01/23/17 20:37 Vital Signs - 24 hr 01/23/17 01/23/17 01/23/17 09:32 10:00 14:00 Temperature 97.9 F Pulse Rate 107 H 106 H 111 H Respiratory 21 22 Rate Blood Pressure 102/56 101/47 O2 Sat by Pulse 97 Oximetry (%) 01/23/17 01/23/17 01/23/17 18:50 20:37 22:00 Temperature 98.0 F Pulse Rate 113 H 103 H Respiratory 20 Rate Blood Pressure 98/69 O2 Sat by Pulse 97 97 Oximetry (%) 01/24/17 01/24/17 02:00 06:00 Temperature 98.7 F 98.0 F Pulse Rate 91 H 97 H Respiratory 22 22 Rate Blood Pressure 109/65 106/54 O2 Sat by Pulse Oximetry (%) Constitutional: Yes: No Distress, Calm Eyes: Yes: Conjunctiva Clear HENT: Yes: Atraumatic Neck: Yes: Supple Respiratory: Yes: Regular Gastrointestinal: Yes: Normal Bowel Sounds. No: Distention, Tenderness, Vomiting Labs: CBC, BMP 01/24/17 05:00 01/24/17 05:00 INR, PTT INR 1.12 (0.82-1.09) 01/12/17 15:45 Hepatic Panel Total Bilirubin 1.0 mg/dL (0.2-1.0) D 01/24/17 05:00 AST 52 U/L (15-37) H D 01/24/17 05:00 ALT 129 U/L (12-78) H D 01/24/17 05:00 Alkaline Phosphatase 198 U/L (45-117) H 01/24/17 05:00 Albumin 2.4 g/dl (3.4-5.0) L 01/24/17 05:00 Problem List - Problems (1) Transaminasemia Code(s): R74.0 - NONSPEC ELEV OF LEVELS OF TRANSAMNS & LACTIC ACID DEHYDRGNSE (2) Elevated alkaline phosphatase level Assessment/Plan: Improving. Avoid NSAIDs and acetaminophen if possible Maintain adequate perfusion Daily hepatic enzymes (ordered) Will follow Code(s): R74.8 - ABNORMAL LEVELS OF OTHER SERUM ENZYMES
[2017-01-24 10:24] LABS: ALBUMIN 2.4 g/dl (3.4-5.0); BILIRUBIN,DIRECT 0.6 mg/dL (0.0-0.2); BILIRUBIN,TOTAL 1.1 mg/dL (0.2-1.0); TOT PROT 6.1 g/dl (6.4-8.2)
[2017-01-24] MEDS: TIOTROPIUM BROMIDE 18 MCG/INH (DEVICE W/ 5 CAPSULES) IH SCH (11:05)
--- NOTE | 2017-01-24 11:22 | PN ---
Progress Note, Physician Chief Complaint: Pt A&Ox3; no dyspnea or chest pain; no palpitations. States she was able to walk to bathroom with assistance; less SOB with exertion, but still weak. History of Present Illness: Ms. Hou is an 81 yo white woman with a significant past medical history of systolic CHF, CAD s/p [place]-->CABG, bioprosthetic AoVR, and ICD; HTN, hyperlipidemia, overweight, anxiety/depression, who presents with significant abdominal discomfort after trial of oral antibiotics for UTI. PCP called to alert of presentation to ER, ID consulted as patient has extensive allergies to medication. The patient denies chest pain, shortness of breath, headache and dizziness. Denies fever, chills, nausea, vomit, diarrhea and constipation. Reports her dysuria has decreased but is not gone, still has frequency and urgency. - Current Medication List Current Medications: Active Medications Alprazolam (Xanax -) 0.25 mg PO DAILY PRN PRN Reason: ANXIETY Aspirin (Asa -) 81 mg PO DAILY [facility] Last Admin: 01/24/17 09:01 Dose: 81 mg Budesonide/Formoterol Fumarate (Symbicort 80/4.5mcg -) 1 puff IH BID [facility] Last Admin: 01/24/17 09:02 Dose: 1 puff Clopidogrel Bisulfate (Plavix -) 75 mg PO DAILY [facility] Last Admin: 01/24/17 09:01 Dose: 75 mg Docusate Sodium (Colace -) 100 mg PO BID [facility] Last Admin: 01/24/17 09:01 Dose: 100 mg Furosemide (Lasix -) 40 mg PO BID@0600,1400 [facility] Last Admin: 01/24/17 06:10 Dose: 40 mg Guaifenesin (Robitussin -) 10 ml PO Q6H PRN PRN Reason: COUGH Heparin Sodium (Porcine) (Heparin -) 5,000 unit SQ TID [facility] Last Admin: 01/24/17 06:10 Dose: 5,000 unit Levothyroxine Sodium (Synthroid -) 75 mcg PO DAILY@0700 [facility] Last Admin: 01/24/17 06:10 Dose: 75 mcg Lidocaine (Lidoderm Patch -) 1 patch TP DAILY [facility] Last Admin: 01/24/17 09:02 Dose: 1 patch Methyl Salicylate (Malick-Stewart -) 1 applic TP DAILY [facility] Last Admin: 01/24/17 09:03 Dose: 1 applic Metoclopramide HCl (Reglan Injection -) 10 mg IVPB Q6H PRN PRN Reason: NAUSEA AND/OR VOMITING Metoprolol Tartrate (Lopressor -) 12.5 mg PO BID [facility] Last Admin: 01/24/17 09:01 Dose: 12.5 mg Miscellaneous (Lidoderm Patch Removal) 1 each MC DAILY@2200 [facility] Last Admin: 01/23/17 21:11 Dose: 1 each Oxycodone HCl (Roxicodone -) 10 mg PO Q6H PRN PRN Reason: PAIN LEVEL 6-10 Last Admin: 01/20/17 09:10 Dose: 10 mg Oxycodone HCl (Roxicodone -) 5 mg PO Q6H PRN PRN Reason: PAIN LEVEL 1-5 Last Admin: 01/20/17 23:18 Dose: 5 mg Sodium Chloride ([place] Nasal [place] -) 2 spray NS DAILY PRN PRN Reason: NASAL CONGESTION Last Admin: 01/20/17 06:16 Dose: 2 sprays Tiotropium [place] (Spiriva -) 1 puff IH DAILY [facility] Last Admin: 01/24/17 11:05 Dose: 1 puff - Objective Vital Signs: Vital Signs Temperature 98.0 F 01/24/17 06:00 Pulse Rate 97 H 01/24/17 06:00 Respiratory Rate 22 01/24/17 06:00 Blood Pressure 106/54 01/24/17 06:00 O2 Sat by Pulse Oximetry (%) 97 01/23/17 20:37 Constitutional: Yes: Calm Eyes: Yes: WNL HENT: Yes: WNL Neck: Yes: WNL Cardiovascular: Yes: Pulse Irregular, S2 (split) Respiratory: Yes: Diminished Gastrointestinal: Yes: Soft ...Rectal Exam: Yes: Deferred Genitourinary: No: Anuria Breast(s): Yes: WNL Musculoskeletal: Yes: Joint Stiffness, Muscle Weakness Extremities: Yes: Cool Edema: No Peripheral Pulses WNL: No Peripheral Pulses: Left Doralis Pedis: 1+, Right Dorsalis Pedis: 1+ Integumentary: Yes: WNL Neurological: Yes: Alert, Oriented, Weakness Psychiatric: Yes: Alert, Oriented, Other (anxiety/depression/panic) Labs: CBC, BMP 01/24/17 05:00 01/24/17 05:00 INR, PTT INR 1.12 (0.82-1.09) 01/12/17 15:45 - ....Imaging Chest X-ray: Image Reviewed (? new small left basal infiltrate) Other: Image Reviewed (AV (BIV) pacing; occasional brief runs of NSVT) Problem List - Problems (1) Anxiety 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 Assessment/Plan: On medications; psychologist may be of benefit. Code(s): F41.0 - PANIC DISORDER [EPISODIC PAROXYSMAL ANXIETY] (2) CAD (coronary artery disease) Code(s): I25.10 - ATHSCL HEART DISEASE OF [place] CORONARY ARTERY W/O ANG PCTRS (3) COPD bronchitis Code(s): J44.9 - CHRONIC OBSTRUCTIVE PULMONARY DISEASE, UNSPECIFIED (4) Diabetes Code(s): E11.9 - TYPE 2 DIABETES MELLITUS WITHOUT COMPLICATIONS (5) Hx of CABG Code(s): Z95.1 - PRESENCE OF AORTOCORONARY BYPASS GRAFT (6) Hyperlipidemia Code(s): E78.5 - HYPERLIPIDEMIA, UNSPECIFIED (7) Hypertension Code(s): I10 - ESSENTIAL (PRIMARY) HYPERTENSION (8) Hypothyroidism Code(s): E03.9 - HYPOTHYROIDISM, UNSPECIFIED (9) ICD (implantable cardioverter-defibrillator) in place Assessment/Plan: Pt reports no shocks. Code(s): Z95.810 - PRESENCE OF AUTOMATIC (IMPLANTABLE) CARDIAC DEFIBRILLATOR (10) Sleep apnea in adult Code(s): G47.33 - OBSTRUCTIVE SLEEP APNEA (ADULT) (PEDIATRIC) (11) Valvular heart disease Code(s): I38 - ENDOCARDITIS, VALVE UNSPECIFIED (12) Acute on chronic systolic and diastolic heart failure, NYHA class 4 Assessment/Plan: Restarted metoprolol (systolic CHF; PAF); increase dosage gradually as BP allows ; consider changing to metoprolol ER for easier compliance and better 24 hour coverage. Periods of hypotension and hyperkalemia make ACEI or Aldactone problematic; would restart low-dose ACEI or ARB cautiously, one by one. (In the past, hyperkalemia has made starting Aldactone difficult; if BP allows in the future, consider hydralazine + Imdur). On furosemide; f/u K, PO4, and Mg carefully. Is and Os, daily weight; BUN/Cr; electrolytes. Code(s): I50.43 - ACUTE ON CHRONIC COMBINED SYSTOLIC AND DIASTOLIC HRT FAIL (13) Aortic valve replaced Code(s): Z95.2 - PRESENCE OF PROSTHETIC HEART VALVE (14) Fatty liver Assessment/Plan: hepatomegaly; fatty liver. Elevated LFTS. F/u with GI. Code(s): K76.0 - FATTY (CHANGE OF) LIVER, NOT ELSEWHERE CLASSIFIED
[2017-01-24] MEDS ORDERED: PT OWN MED DRAWER 7, Y5N ONE ×2 (14:21→14:49)
[2017-01-24] MEDS: CALCIUM CARBONATE 650 MG TABLET PO SCH ×2 (14:49→21:16)
--- NOTE | 2017-01-24 15:26 | PN ---
Physical Exam: SUBJECTIVE: Patient seen and examined. She feels tired, however very alert and conversational. Food is giving her heart burn OBJECTIVE: Vital Signs Period Temp Pulse Resp BP Sys/Camilo Pulse Ox Last 24 Hr 98.0 F-98.7 F 91-113 20-22 98-109/54-69 97-98 PE Neuro: alert, awake, cn 2-12 Pulm: basilar rales L>R , rhonchi +nc CV: s1 s2 rrr +systolic murmur Abd: s nt nd + bs Ext: +1 edema bilaterally, warm le Laboratory Results - last 24 hr 01/14/17 01/24/17 01/24/17 17:12 05:00 05:00 WBC 12.2 H RBC 4.05 Hgb 10.9 Hct 32.6 MCV 80.4 MCH 26.9 MCHC 33.4 RDW 15.8 H Plt Count 368 MPV 8.1 Neutrophils % 80.3 Lymphocytes % 6.5 L D Monocytes % 12.1 H Eosinophils % 0.9 Basophils % 0.2 Sodium 130 L Potassium 4.3 D Chloride 83 L Carbon Dioxide 36 H Anion Gap 11 BUN 23 H Creatinine 0.5 L Creat Clearance w eGFR > 60 POC Glucometer [phone] Random Glucose 87 Calcium 8.5 Total Bilirubin 1.0 D Direct Bilirubin AST 52 H D ALT 129 H D Alkaline Phosphatase 198 H Total Protein 6.0 L Albumin 2.4 L 01/24/17 08:31 WBC RBC Hgb Hct MCV MCH MCHC RDW Plt Count MPV Neutrophils % Lymphocytes % Monocytes % Eosinophils % Basophils % Sodium Potassium Chloride Carbon Dioxide Anion Gap BUN Creatinine Creat Clearance w eGFR POC Glucometer Random Glucose Calcium Total Bilirubin 1.1 H Direct Bilirubin 0.6 H AST 55 H ALT 134 H Alkaline Phosphatase 219 H Total Protein 6.1 L Albumin 2.4 L Active Medications Generic Name Dose Route Start Last Admin Trade Name Freq PRN Reason Stop Dose Admin Alprazolam 0.25 mg 01/21/17 15:15 Xanax - PO DAILY PRN ANXIETY Aspirin 81 mg 01/19/17 10:00 01/24/17 09:01 Asa - PO 81 mg DAILY [facility] Administration Budesonide/Formoterol Fumarate 1 puff 01/18/17 22:00 01/24/17 09:02 Symbicort 80/4.5mcg - IH 1 puff BID [facility] Administration Calcium Carbonate 650 mg 01/24/17 14:00 01/24/17 14:49 Calcium Carbonate - PO 650 mg BID [facility] Administration Clopidogrel Bisulfate 75 mg 01/19/17 10:00 01/24/17 09:01 Plavix - PO 75 mg DAILY [facility] Administration Docusate Sodium 100 mg 01/22/17 10:00 01/24/17 09:01 Colace - PO 100 mg BID [facility] Administration Furosemide 40 mg 01/23/17 14:00 01/24/17 13:14 Lasix - PO 40 mg BID@0600,1400 [facility] Administration Guaifenesin 10 ml 01/23/17 14:46 Robitussin - PO Q6H PRN COUGH Heparin Sodium (Porcine) 5,000 unit 01/18/17 22:00 01/24/17 13:15 Heparin - SQ 5,000 unit TID [facility] Administration Levothyroxine Sodium 75 mcg 01/19/17 07:00 01/24/17 06:10 Synthroid - PO 75 mcg DAILY@0700 [facility] Administration Lidocaine 1 patch 01/19/17 10:00 01/24/17 09:02 Lidoderm Patch - TP 1 patch DAILY [facility] Administration Methyl Salicylate 1 applic 01/19/17 16:15 01/24/17 09:03 Malick-Stewart - TP 1 applic DAILY [facility] Administration Metoclopramide HCl 10 mg 01/18/17 19:41 Reglan Injection - IVPB Q6H PRN NAUSEA AND/OR VOMITING Metoprolol Tartrate 12.5 mg 01/18/17 22:00 01/24/17 09:01 Lopressor - PO 12.5 mg BID [facility] Administration Miscellaneous 1 each 01/18/17 22:00 01/23/17 21:11 Lidoderm Patch Removal MC 1 each DAILY@2200 [facility] Administration Oxycodone HCl 10 mg 01/18/17 19:41 01/20/17 09:10 Roxicodone - PO 10 mg Q6H PRN Administration PAIN LEVEL 6-10 Oxycodone HCl 5 mg 01/18/17 19:41 01/20/17 23:18 Roxicodone - PO 5 mg Q6H PRN Administration PAIN LEVEL 1-5 Sodium Chloride 2 spray 01/19/17 19:37 01/20/17 06:16 [place] Nasal [place] - NS 2 sprays DAILY PRN Administration NASAL CONGESTION Tiotropium [place] 1 puff 01/19/17 10:00 01/24/17 11:05 Spiriva - IH 1 puff DAILY [facility] Administration Imaging: - ECHO 01/16: LVSF severely reduced, LV mildly dilated, bioprosthetic valve, Mod TR, MR, RVSF mod-severe reduced, - Liver ultrasound with hepatomegaly and diffuse fatty infiltration of the liver Assessment: 81 year old female with PMHx of HTN, hyperlipidemia, CAD s/p CABG, AVR, severe LV systolic dysfunction s/p Bi-V ICD, combined systolic and diastolic heart failure, hypothyroidism admitted with dysuria, right flank pain. Plan: 1. Cardiogenic shock, acute on chronic systolic and diastolic heart failure, severe LV systolic dysfunction - Shock resolved, s/p dopamine - Continue low dose metoprolol 12.5mg BID - Transition to PoO lasix 40mg BID - FERNANDO/ARB problematic in past d/t electrolyte disturbances 2. Hypotension - BP around baseline today 3. Transaminitis - Possible d/t shock liver from decreased perfusion state - Trend daily - Hold Zocor - GI seeing 4. CAD s/p CABG, AVR - Continue ASA - Continue Plavix 5. NSVT - No sustained arrhythmias overnight 6. Suspected sepsis 2/2 UTI - Urine culture negative - Off all abx 7. BETTIE - Resolved 8. Hypothyroidism - Continue Synthroid 75mcg daily 9. Hyponatremia - Improving 10. Hyperkalemia - Resolved 11. Hyperlipidemia - Hold Zocor 12. PPX - Heparin 5,000u sq tid Visit type - Emergency Visit Emergency Visit: Yes ED Registration Date: 01/12/17 Care time: The patient presented to the Emergency Department on the above date and was hospitalized for further evaluation of their emergent condition. - New Patient This patient is new to me today: No - Critical Care Critical Care patient: No
--- NOTE | 2017-01-24 15:31 | PN ---
Progress Note, Physician History of Present Illness: Pt seen and examined at bedside. She is awake and alert. She is out of bed to chair. - Current Medication List Current Medications: Active Medications Alprazolam (Xanax -) 0.25 mg PO DAILY PRN PRN Reason: ANXIETY Aspirin (Asa -) 81 mg PO DAILY [facility] Last Admin: 01/24/17 09:01 Dose: 81 mg Budesonide/Formoterol Fumarate (Symbicort 80/4.5mcg -) 1 puff IH BID [facility] Last Admin: 01/24/17 09:02 Dose: 1 puff Calcium Carbonate (Calcium Carbonate -) 650 mg PO BID [facility] Last Admin: 01/24/17 14:49 Dose: 650 mg Clopidogrel Bisulfate (Plavix -) 75 mg PO DAILY [facility] Last Admin: 01/24/17 09:01 Dose: 75 mg Docusate Sodium (Colace -) 100 mg PO BID [facility] Last Admin: 01/24/17 09:01 Dose: 100 mg Furosemide (Lasix -) 40 mg PO BID@0600,1400 [facility] Last Admin: 01/24/17 13:14 Dose: 40 mg Guaifenesin (Robitussin -) 10 ml PO Q6H PRN PRN Reason: COUGH Heparin Sodium (Porcine) (Heparin -) 5,000 unit SQ TID [facility] Last Admin: 01/24/17 13:15 Dose: 5,000 unit Levothyroxine Sodium (Synthroid -) 75 mcg PO DAILY@0700 [facility] Last Admin: 01/24/17 06:10 Dose: 75 mcg Lidocaine (Lidoderm Patch -) 1 patch TP DAILY [facility] Last Admin: 01/24/17 09:02 Dose: 1 patch Methyl Salicylate (Malick-Stewart -) 1 applic TP DAILY [facility] Last Admin: 01/24/17 09:03 Dose: 1 applic Metoclopramide HCl (Reglan Injection -) 10 mg IVPB Q6H PRN PRN Reason: NAUSEA AND/OR VOMITING Metoprolol Tartrate (Lopressor -) 12.5 mg PO BID [facility] Last Admin: 01/24/17 09:01 Dose: 12.5 mg Miscellaneous (Lidoderm Patch Removal) 1 each MC DAILY@2200 [facility] Last Admin: 01/23/17 21:11 Dose: 1 each Oxycodone HCl (Roxicodone -) 10 mg PO Q6H PRN PRN Reason: PAIN LEVEL 6-10 Last Admin: 01/20/17 09:10 Dose: 10 mg Oxycodone HCl (Roxicodone -) 5 mg PO Q6H PRN PRN Reason: PAIN LEVEL 1-5 Last Admin: 01/20/17 23:18 Dose: 5 mg Sodium Chloride ([place] -) 2 spray NS DAILY PRN PRN Reason: NASAL CONGESTION Last Admin: 01/20/17 06:16 Dose: 2 sprays Tiotropium [place] (Spiriva -) 1 puff IH DAILY [facility] Last Admin: 01/24/17 11:05 Dose: 1 puff - Objective Vital Signs: Vital Signs Temperature 98.0 F 01/24/17 06:00 Pulse Rate 97 H 01/24/17 06:00 Respiratory Rate 22 01/24/17 09:00 Blood Pressure 106/54 01/24/17 06:00 O2 Sat by Pulse Oximetry (%) 98 01/24/17 09:00 Constitutional: Yes: Calm Eyes: Yes: Conjunctiva Clear HENT: Yes: Atraumatic Neck: Yes: Supple Cardiovascular: Yes: S1, S2 Respiratory: Yes: CTA Bilaterally Gastrointestinal: Yes: Soft Genitourinary: Yes: WNL Musculoskeletal: Yes: WNL Edema: Yes Edema: LLE: Trace, RLE: Trace Neurological: Yes: Oriented Psychiatric: Yes: Oriented Labs: CBC, BMP 01/24/17 05:00 01/24/17 05:00 INR, PTT INR 1.12 (0.82-1.09) 01/12/17 15:45 - ....Imaging Chest X-ray: Report Reviewed Problem List - Problems (1) Hypokalemia Code(s): E87.6 - HYPOKALEMIA (2) Hyponatremia Code(s): E87.1 - HYPO-OSMOLALITY AND HYPONATREMIA (3) UTI (urinary tract infection) Code(s): N39.0 - URINARY TRACT INFECTION, SITE NOT SPECIFIED Qualifiers: Urinary tract infection type: site unspecified Hematuria presence: without hematuria Qualified Code(s): N39.0 - Urinary tract infection, site not specified; N39.0 - Urinary tract infection, site not specified; R31.9 - Hematuria, unspecified; R31.9 - Hematuria, unspecified (4) Acute on chronic systolic CHF (congestive heart failure) Code(s): I50.23 - ACUTE ON CHRONIC SYSTOLIC (CONGESTIVE) HEART FAILURE (5) COPD (chronic obstructive pulmonary disease) Code(s): J44.9 - CHRONIC OBSTRUCTIVE PULMONARY DISEASE, UNSPECIFIED Assessment/Plan Current Medications Generic Name Dose Route Start Last Admin Trade Name Freq PRN Reason Stop Dose Admin Alprazolam 0.25 mg 01/21/17 15:15 Xanax - PO DAILY PRN ANXIETY Aspirin 81 mg 01/19/17 10:00 01/24/17 09:01 Asa - PO 81 mg DAILY [facility] Administration Budesonide/Formoterol Fumarate 1 puff 01/18/17 22:00 01/24/17 09:02 Symbicort 80/4.5mcg - IH 1 puff BID [facility] Administration Calcium Carbonate 650 mg 01/24/17 14:00 01/24/17 14:49 Calcium Carbonate - PO 650 mg BID [facility] Administration Clopidogrel Bisulfate 75 mg 01/19/17 10:00 01/24/17 09:01 Plavix - PO 75 mg DAILY [facility] Administration Docusate Sodium 100 mg 01/22/17 10:00 01/24/17 09:01 Colace - PO 100 mg BID [facility] Administration Furosemide 40 mg 01/23/17 14:00 01/24/17 13:14 Lasix - PO 40 mg BID@0600,1400 [facility] Administration Guaifenesin 10 ml 01/23/17 14:46 Robitussin - PO Q6H PRN COUGH Heparin Sodium (Porcine) 5,000 unit 01/18/17 22:00 01/24/17 13:15 Heparin - SQ 5,000 unit TID [facility] Administration Levothyroxine Sodium 75 mcg 01/19/17 07:00 01/24/17 06:10 Synthroid - PO 75 mcg DAILY@0700 [facility] Administration Lidocaine 1 patch 01/19/17 10:00 01/24/17 09:02 Lidoderm Patch - TP 1 patch DAILY [facility] Administration Methyl Salicylate 1 applic 01/19/17 16:15 01/24/17 09:03 Malick-Stewart - TP 1 applic DAILY [facility] Administration Metoclopramide HCl 10 mg 01/18/17 19:41 Reglan Injection - IVPB Q6H PRN NAUSEA AND/OR VOMITING Metoprolol Tartrate 12.5 mg 01/18/17 22:00 01/24/17 09:01 Lopressor - PO 12.5 mg BID [facility] Administration Miscellaneous 1 each 01/18/17 22:00 01/23/17 21:11 Lidoderm Patch Removal MC 1 each DAILY@2200 [facility] Administration Oxycodone HCl 10 mg 01/18/17 19:41 01/20/17 09:10 Roxicodone - PO 10 mg Q6H PRN Administration PAIN LEVEL 6-10 Oxycodone HCl 5 mg 01/18/17 19:41 01/20/17 23:18 Roxicodone - PO 5 mg Q6H PRN Administration PAIN LEVEL 1-5 Sodium Chloride 2 spray 01/19/17 19:37 01/20/17 06:16 [place] - NS 2 sprays DAILY PRN Administration NASAL CONGESTION Tiotropium [place] 1 puff 01/19/17 10:00 01/24/17 11:05 Spiriva - IH 1 puff DAILY [facility] Administration 1. UTI 2. hyponatremia 3. paralyzed hemidiaphragm 4. HTN 5. valvular heart disease 6. azotemia 7. hypothyroid 8. CAD 9. hypokalemia resolved 10. alkalosis 11. transaminitis 12. anxiety 13. CHF 14. hyperkalemia Plan - sodium is improving - cont lasix - monitor labs daily - GI input appreciated - cardio follow up - will follow Dr Bella
--- NOTE | 2017-01-24 16:15 | PN ---
Progress Note (short form) - Note Progress Note: Patient seen and examined on Telemetry. Awake and alert. Denies CP or SOB. No acute events overnight. General fatigue. OBJECTIVE: Intake & Output 01/21/17 01/22/17 01/23/17 01/24/17 23:59 23:59 23:59 23:59 Intake Total 450 350 350 360 Output Total 250 600 Balance 200 350 350 -240 Weight 161 lb 12.8 oz 159 lb 156 lb 3 oz Last Vital Signs Temp Pulse Resp BP Pulse Ox 98.0 F 97 H 22 106/54 98 01/24/17 06:00 01/24/17 06:00 01/24/17 09:00 01/24/17 06:00 01/24/17 09:00 Active Medications Alprazolam (Xanax -) 0.25 mg PO DAILY PRN PRN Reason: ANXIETY Aspirin (Asa -) 81 mg PO DAILY [facility] Last Admin: 01/24/17 09:01 Dose: 81 mg Budesonide/Formoterol Fumarate (Symbicort 80/4.5mcg -) 1 puff IH BID [facility] Last Admin: 01/24/17 09:02 Dose: 1 puff Calcium Carbonate (Calcium Carbonate -) 650 mg PO BID [facility] Last Admin: 01/24/17 14:49 Dose: 650 mg Clopidogrel Bisulfate (Plavix -) 75 mg PO DAILY [facility] Last Admin: 01/24/17 09:01 Dose: 75 mg Docusate Sodium (Colace -) 100 mg PO BID [facility] Last Admin: 01/24/17 09:01 Dose: 100 mg Furosemide (Lasix -) 40 mg PO BID@0600,1400 [facility] Last Admin: 01/24/17 13:14 Dose: 40 mg Guaifenesin (Robitussin -) 10 ml PO Q6H PRN PRN Reason: COUGH Heparin Sodium (Porcine) (Heparin -) 5,000 unit SQ TID [facility] Last Admin: 01/24/17 13:15 Dose: 5,000 unit Levothyroxine Sodium (Synthroid -) 75 mcg PO DAILY@0700 [facility] Last Admin: 01/24/17 06:10 Dose: 75 mcg Lidocaine (Lidoderm Patch -) 1 patch TP DAILY [facility] Last Admin: 01/24/17 09:02 Dose: 1 patch Methyl Salicylate (Malick-Stewart -) 1 applic TP DAILY [facility] Last Admin: 01/24/17 09:03 Dose: 1 applic Metoclopramide HCl (Reglan Injection -) 10 mg IVPB Q6H PRN PRN Reason: NAUSEA AND/OR VOMITING Metoprolol Tartrate (Lopressor -) 12.5 mg PO BID [facility] Last Admin: 01/24/17 09:01 Dose: 12.5 mg Miscellaneous (Lidoderm Patch Removal) 1 each MC DAILY@2200 [facility] Last Admin: 01/23/17 21:11 Dose: 1 each Oxycodone HCl (Roxicodone -) 10 mg PO Q6H PRN PRN Reason: PAIN LEVEL 6-10 Last Admin: 01/20/17 09:10 Dose: 10 mg Oxycodone HCl (Roxicodone -) 5 mg PO Q6H PRN PRN Reason: PAIN LEVEL 1-5 Last Admin: 01/20/17 23:18 Dose: 5 mg Sodium Chloride ([place] -) 2 spray NS DAILY PRN PRN Reason: NASAL CONGESTION Last Admin: 01/20/17 06:16 Dose: 2 sprays Tiotropium [place] (Spiriva -) 1 puff IH DAILY [facility] Last Admin: 01/24/17 11:05 Dose: 1 puff Gen: Awake and alert Heart: RRR Lung: scattered rhonchi Abd: soft, nontender Ext: no edema Laboratory Results - last 24 hr 01/14/17 01/24/17 01/24/17 17:12 05:00 05:00 WBC 12.2 H RBC 4.05 Hgb 10.9 Hct 32.6 MCV 80.4 MCH 26.9 MCHC 33.4 RDW 15.8 H Plt Count 368 MPV 8.1 Neutrophils % 80.3 Lymphocytes % 6.5 L D Monocytes % 12.1 H Eosinophils % 0.9 Basophils % 0.2 Sodium 130 L Potassium 4.3 D Chloride 83 L Carbon Dioxide 36 H Anion Gap 11 BUN 23 H Creatinine 0.5 L Creat Clearance w eGFR > 60 POC Glucometer [phone] Random Glucose 87 Calcium 8.5 Total Bilirubin 1.0 D Direct Bilirubin AST 52 H D ALT 129 H D Alkaline Phosphatase 198 H Total Protein 6.0 L Albumin 2.4 L 01/24/17 08:31 WBC RBC Hgb Hct MCV MCH MCHC RDW Plt Count MPV Neutrophils % Lymphocytes % Monocytes % Eosinophils % Basophils % Sodium Potassium Chloride Carbon Dioxide Anion Gap BUN Creatinine Creat Clearance w eGFR POC Glucometer Random Glucose Calcium Total Bilirubin 1.1 H Direct Bilirubin 0.6 H AST 55 H ALT 134 H Alkaline Phosphatase 219 H Total Protein 6.1 L Albumin 2.4 L ASSESSMENT AND PLAN: UTI Septic vs Cardiogenic Shock improving Severe LV Systolic Dysfunction s/p Bi-V ICD Atrial Fibrillation Mitral Regurgitation Pulmonary HTN s/p AVR CAD COPD Hyponatremia Hypothyroidism Transaminitis : possibly due to low flow state / BiV failure - rate control - ASA, plavix - O2 to keep Spo2 >90% - antibiotics completed - inhaled bronchodilators - PO as tolerated - DVT prophylaxis Dr Payton
[2017-01-24] MEDS: LIDOCAINE PATCH REMOVAL MC SCH (21:13)
[2017-01-25] MEDS: FUROSEMIDE 40 MG TABLET (FP) PO SCH ×2 (06:08→13:33)
[2017-01-25] MEDS: HEPARIN NA (PORCINE) 5,000 UNITS/ML 1ML VIAL SQ SCH ×3 (06:08→22:37)
[2017-01-25] MEDS: LEVOTHYROXINE NA 75 MCG TABLET (FP) PO SCH (06:08)
[2017-01-25 06:27] LABS: BASOPHIL 0.2 % (0-2.0); EOSINOPHIL 0.6 % (0-4.5); MCH 26.8 pg (25.7-33.7); MCHC 33.6 g/dl (32.0-36.0); MEAN CELL VOLUME 79.7 fl (80-96); MEAN PLT VOLUME 8.2 fl (7.5-11.1); NEUTROPHILS 80.2 % (42.8-82.8); PLATELET COUNT 367 K/MM3 (134-434); RDW 15.9 % (11.6-15.6); WHITE BLOOD COUNT 12.4 K/mm3 (4.0-10.0)
[2017-01-25 07:05] LABS: ALBUMIN 2.4 g/dl (3.4-5.0); ALK PHOS 180 U/L (45-117); ANION GAP 14 (8-16); BILIRUBIN,TOTAL 1.1 mg/dL (0.2-1.0); CALCIUM 8.7 mg/dL (8.5-10.1); CO2 34 mmol/L (21-32); CREATININE 0.5 mg/dL (0.55-1.02); GLUCOSE,RANDOM 83 mg/dL (74-106); SGOT/AST 33 U/L (15-37); SGPT/ALT 97 U/L (12-78); TOT PROT 5.8 g/dl (6.4-8.2)
[2017-01-25 09:18] LABS: ALBUMIN 2.4 g/dl (3.4-5.0); BILIRUBIN,DIRECT 0.5 mg/dL (0.0-0.2); TOT PROT 6.1 g/dl (6.4-8.2)
[2017-01-25] MEDS: CALCIUM CARBONATE 650 MG TABLET PO SCH ×2 (09:51→23:26)
[2017-01-25] MEDS: DOCUSATE SODIUM 100 MG CAPSULE (FP) PO SCH ×2 (09:51→22:33)
[2017-01-25] MEDS: ASPIRIN 81 MG CHEWABLE TABLETS PO SCH (09:51)
[2017-01-25] MEDS: LIDOCAINE 5% TOPICAL PATCH TP SCH (09:51)
[2017-01-25] MEDS: TIOTROPIUM BROMIDE 18 MCG/INH (DEVICE W/ 5 CAPSULES) IH SCH (09:52)
[2017-01-25] MEDS: METOPROLOL TARTRATE 25 MG TABLET (FP) PO SCH ×2 (09:52→22:33)
[2017-01-25] MEDS: CLOPIDOGREL BISULFATE 75 MG TABLET (FP) PO SCH (09:52)
[2017-01-25] MEDS: BUDESONIDE/FORMETEROL FUMARATE 80/4.5 mcg INHALER IH SCH ×2 (09:53→22:38)
[2017-01-25] MEDS: METHYL SALICYLATE/MENTHOL OINT 30 GM TUBE TP SCH (10:10)
--- NOTE | 2017-01-25 10:17 | PN ---
Progress Note, Physician History of Present Illness: 81 year old woman with a history of HTN, HLD, CAD s/p CABG, AVR, Chronic combined systolic/diastolic CHF, severe LV systolic dysfunction s/p Bi-V ICD, paralyzed L cosme-diaphragm, admitted for nausea, vomiting, abdominal pain, UTI possible urosepsis, hypotension. - Current Medication List Current Medications: Active Medications Alprazolam (Xanax -) 0.25 mg PO DAILY PRN PRN Reason: ANXIETY Aspirin (Asa -) 81 mg PO DAILY [facility] Last Admin: 01/25/17 09:51 Dose: 81 mg Budesonide/Formoterol Fumarate (Symbicort 80/4.5mcg -) 1 puff IH BID [facility] Last Admin: 01/25/17 09:53 Dose: 1 puff Calcium Carbonate (Calcium Carbonate -) 650 mg PO BID [facility] Last Admin: 01/25/17 09:51 Dose: 650 mg Clopidogrel Bisulfate (Plavix -) 75 mg PO DAILY [facility] Last Admin: 01/25/17 09:52 Dose: 75 mg Docusate Sodium (Colace -) 100 mg PO BID [facility] Last Admin: 01/25/17 09:51 Dose: 100 mg Furosemide (Lasix -) 40 mg PO BID@0600,1400 [facility] Last Admin: 01/25/17 06:08 Dose: 40 mg Guaifenesin (Robitussin -) 10 ml PO Q6H PRN PRN Reason: COUGH Heparin Sodium (Porcine) (Heparin -) 5,000 unit SQ TID [facility] Last Admin: 01/25/17 06:08 Dose: 5,000 unit Levothyroxine Sodium (Synthroid -) 75 mcg PO DAILY@0700 [facility] Last Admin: 01/25/17 06:08 Dose: 75 mcg Lidocaine (Lidoderm Patch -) 1 patch TP DAILY [facility] Last Admin: 01/25/17 09:51 Dose: 1 patch Methyl Salicylate (Malick-Stewart -) 1 applic TP DAILY [facility] Last Admin: 01/25/17 10:10 Dose: 1 applic Metoclopramide HCl (Reglan Injection -) 10 mg IVPB Q6H PRN PRN Reason: NAUSEA AND/OR VOMITING Metoprolol Tartrate (Lopressor -) 12.5 mg PO BID [facility] Last Admin: 01/25/17 09:52 Dose: 12.5 mg Miscellaneous (Lidoderm Patch Removal) 1 each MC DAILY@2200 [facility] Last Admin: 01/24/17 21:13 Dose: 1 each Oxycodone HCl (Roxicodone -) 10 mg PO Q6H PRN PRN Reason: PAIN LEVEL 6-10 Last Admin: 01/20/17 09:10 Dose: 10 mg Oxycodone HCl (Roxicodone -) 5 mg PO Q6H PRN PRN Reason: PAIN LEVEL 1-5 Last Admin: 01/20/17 23:18 Dose: 5 mg Sodium Chloride ([place] Nasal [place] -) 2 spray NS DAILY PRN PRN Reason: NASAL CONGESTION Last Admin: 01/20/17 06:16 Dose: 2 sprays Tiotropium [place] (Spiriva -) 1 puff IH DAILY [facility] Last Admin: 01/25/17 09:52 Dose: 1 puff - Objective Vital Signs: Vital Signs Temperature 97.9 F 01/25/17 08:00 Pulse Rate 122 H 01/25/17 10:00 Respiratory Rate 26 H 01/25/17 10:00 Blood Pressure 107/77 01/25/17 10:00 O2 Sat by Pulse Oximetry (%) 99 01/25/17 10:00 Eyes: Yes: WNL, Conjunctiva Clear, EOM Intact HENT: Yes: WNL, Atraumatic, Normocephalic Neck: Yes: WNL, Supple, Trachea Midline Cardiovascular: Yes: WNL, Regular Rate and Rhythm Respiratory: Yes: Diminished Gastrointestinal: Yes: WNL, Normal Bowel Sounds Genitourinary: Yes: WNL Musculoskeletal: Yes: WNL Extremities: Yes: WNL Edema: No Integumentary: Yes: WNL Neurological: Yes: WNL, Alert, Oriented ...Motor Strength: WNL Psychiatric: Yes: WNL Labs: CBC, BMP 01/25/17 06:10 01/25/17 06:10 INR, PTT INR 1.12 (0.82-1.09) 01/12/17 15:45 Problem List - Problems (1) DVT prophylaxis Code(s): [id number] - (2) Hypokalemia Code(s): E87.6 - HYPOKALEMIA (3) Hyponatremia Code(s): E87.1 - HYPO-OSMOLALITY AND HYPONATREMIA (4) UTI (urinary tract infection) Code(s): N39.0 - URINARY TRACT INFECTION, SITE NOT SPECIFIED Qualifiers: Urinary tract infection type: site unspecified Hematuria presence: without hematuria Qualified Code(s): N39.0 - Urinary tract infection, site not specified; N39.0 - Urinary tract infection, site not specified; R31.9 - Hematuria, unspecified; R31.9 - Hematuria, unspecified (5) Acute on chronic systolic CHF (congestive heart failure) Code(s): I50.23 - ACUTE ON CHRONIC SYSTOLIC (CONGESTIVE) HEART FAILURE (6) CHF NYHA class III Code(s): I50.9 - HEART FAILURE, UNSPECIFIED (7) CHF exacerbation Code(s): I50.9 - HEART FAILURE, UNSPECIFIED Qualifiers: Congestive heart failure type: unspecified congestive heart failure type Qualified Code(s): I50.9 - Heart failure, unspecified; I50.9 - Heart failure , unspecified; I50.9 - Heart failure, unspecified; I50.9 - Heart failure, unspecified (8) COPD (chronic obstructive pulmonary disease) Code(s): J44.9 - CHRONIC OBSTRUCTIVE PULMONARY DISEASE, UNSPECIFIED (9) Chronic hypoxemic respiratory failure Code(s): J96.11 - CHRONIC RESPIRATORY FAILURE WITH HYPOXIA (10) Diaphragm paralysis Code(s): J98.6 - DISORDERS OF DIAPHRAGM (11) Leukocytosis Code(s): D72.829 - ELEVATED WHITE BLOOD CELL COUNT, UNSPECIFIED (12) Nonsustained ventricular tachycardia Code(s): I47.2 - VENTRICULAR TACHYCARDIA (13) Respiratory failure Code(s): J96.90 - RESPIRATORY FAILURE, UNSP, UNSP W HYPOXIA OR HYPERCAPNIA (14) Shortness of breath Code(s): R06.02 - SHORTNESS OF BREATH (15) Systolic and diastolic CHF w/reduced LV function, NYHA class 4 Code(s): I50.40 - UNSP COMBINED SYSTOLIC AND DIASTOLIC (CONGESTIVE) HRT FAIL (16) Anxiety Code(s): F41.9 - ANXIETY DISORDER, UNSPECIFIED (17) Anxiety 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 Code(s): F41.0 - PANIC DISORDER [EPISODIC PAROXYSMAL ANXIETY] (18) Aortic valve replaced Code(s): Z95.2 - PRESENCE OF PROSTHETIC HEART VALVE (19) CAD (coronary artery disease) Code(s): I25.10 - ATHSCL HEART DISEASE OF [place] CORONARY ARTERY W/O ANG PCTRS (20) CHF (congestive heart failure) Code(s): I50.9 - HEART FAILURE, UNSPECIFIED Qualifiers: Congestive heart failure type: unspecified congestive heart failure type Congestive heart failure chronicity: unspecified congestive heart failure chronicity Qualified Code(s): I50.9 - Heart failure, unspecified; I50.9 - Heart failure, unspecified; I50.9 - Heart failure, unspecified; I50.9 - Heart failure, unspecified (21) COPD bronchitis Code(s): J44.9 - CHRONIC OBSTRUCTIVE PULMONARY DISEASE, UNSPECIFIED (22) Diabetes Code(s): E11.9 - TYPE 2 DIABETES MELLITUS WITHOUT COMPLICATIONS (23) Hx of CABG Code(s): Z95.1 - PRESENCE OF AORTOCORONARY BYPASS GRAFT (24) Hyperlipidemia Code(s): E78.5 - HYPERLIPIDEMIA, UNSPECIFIED (25) Hypertension Code(s): I10 - ESSENTIAL (PRIMARY) HYPERTENSION (26) Hypothyroidism Code(s): E03.9 - HYPOTHYROIDISM, UNSPECIFIED (27) ICD (implantable cardioverter-defibrillator) in place Code(s): Z95.810 - PRESENCE OF AUTOMATIC (IMPLANTABLE) CARDIAC DEFIBRILLATOR (28) Multiple allergies Code(s): Z88.9 - ALLERGY STATUS TO UNSP DRUG/MEDS/BIOL SUBST STATUS (29) Obese Code(s): E66.9 - OBESITY, UNSPECIFIED (30) Sleep apnea in adult Code(s): G47.33 - OBSTRUCTIVE SLEEP APNEA (ADULT) (PEDIATRIC) (31) Valvular heart disease Code(s): I38 - ENDOCARDITIS, VALVE UNSPECIFIED Assessment/Plan - Problems (1) Anxiety 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 Assessment/Plan: On medications; psychologist may be of benefit. Code(s): F41.0 - PANIC DISORDER [EPISODIC PAROXYSMAL ANXIETY] (2) CAD (coronary artery disease) Code(s): I25.10 - ATHSCL HEART DISEASE OF [place] CORONARY ARTERY W/O ANG PCTRS (3) COPD bronchitis Code(s): J44.9 - CHRONIC OBSTRUCTIVE PULMONARY DISEASE, UNSPECIFIED (4) Diabetes Code(s): E11.9 - TYPE 2 DIABETES MELLITUS WITHOUT COMPLICATIONS (5) Hx of CABG Code(s): Z95.1 - PRESENCE OF AORTOCORONARY BYPASS GRAFT (6) Hyperlipidemia Code(s): E78.5 - HYPERLIPIDEMIA, UNSPECIFIED (7) Hypertension Code(s): I10 - ESSENTIAL (PRIMARY) HYPERTENSION (8) Hypothyroidism Code(s): E03.9 - HYPOTHYROIDISM, UNSPECIFIED (9) ICD (implantable cardioverter-defibrillator) in place Assessment/Plan: Pt reports no shocks. Code(s): Z95.810 - PRESENCE OF AUTOMATIC (IMPLANTABLE) CARDIAC DEFIBRILLATOR (10) Sleep apnea in adult Code(s): G47.33 - OBSTRUCTIVE SLEEP APNEA (ADULT) (PEDIATRIC) (11) Valvular heart disease Code(s): I38 - ENDOCARDITIS, VALVE UNSPECIFIED (12) Acute on chronic systolic and diastolic heart failure, NYHA class 4 Assessment/Plan: Restarted metoprolol (systolic CHF; PAF); increase dosage gradually as BP allows ; consider changing to metoprolol ER for easier compliance and better 24 hour coverage. Periods of hypotension and hyperkalemia make ACEI or Aldactone problematic; would restart low-dose ACEI or ARB cautiously, one by one. (In the past, hyperkalemia has made starting Aldactone difficult; if BP allows in the future, consider hydralazine + Imdur). On furosemide; f/u K, PO4, and Mg carefully. Is and Os, daily weight; BUN/Cr; electrolytes. Code(s): I50.43 - ACUTE ON CHRONIC COMBINED SYSTOLIC AND DIASTOLIC HRT FAIL (13) Aortic valve replaced Code(s): Z95.2 - PRESENCE OF PROSTHETIC HEART VALVE (14) Fatty liver Assessment/Plan: hepatomegaly; fatty liver. Elevated LFTS. F/u with GI. Code(s): K76.0 - FATTY (CHANGE OF) LIVER, NOT ELSEWHERE CLASSIFIED
[2017-01-25] MEDS ORDERED: PT OWN MED DRAWER 7, Y5N ONE ×5 (10:53→23:28)
--- NOTE | 2017-01-25 11:49 | PN ---
Progress Note (short form) - Note Progress Note: PULMONARY More short of breath overnight. +nonproductive cough without wheezing. No fevers or chills. Last Vital Signs Temp Pulse Resp BP Pulse Ox 97.9 F 122 H 26 H 107/77 99 01/25/17 08:00 01/25/17 10:00 01/25/17 10:00 01/25/17 10:00 01/25/17 10:00 Intake & Output 01/22/17 01/23/17 01/24/17 01/25/17 23:59 23:59 23:59 23:59 Intake Total 350 350 710 400 Output Total 600 Balance 350 350 110 400 Weight 161 lb 12.8 oz 159 lb 156 lb 3 oz Gen: NAD in chair Heart: tachycardic, regular Lung: distant breath sounds Abd: soft, nontender Ext: no edema CBC, BMP 01/25/17 06:10 01/25/17 06:10 Active Medications Alprazolam (Xanax -) 0.25 mg PO DAILY PRN PRN Reason: ANXIETY Aspirin (Asa -) 81 mg PO DAILY [facility] Last Admin: 01/25/17 09:51 Dose: 81 mg Budesonide/Formoterol Fumarate (Symbicort 80/4.5mcg -) 1 puff IH BID [facility] Last Admin: 01/25/17 09:53 Dose: 1 puff Calcium Carbonate (Calcium Carbonate -) 650 mg PO BID [facility] Last Admin: 01/25/17 09:51 Dose: 650 mg Clopidogrel Bisulfate (Plavix -) 75 mg PO DAILY [facility] Last Admin: 01/25/17 09:52 Dose: 75 mg Docusate Sodium (Colace -) 100 mg PO BID [facility] Last Admin: 01/25/17 09:51 Dose: 100 mg Furosemide (Lasix -) 40 mg PO BID@0600,1400 [facility] Last Admin: 01/25/17 06:08 Dose: 40 mg Guaifenesin (Robitussin -) 10 ml PO Q6H PRN PRN Reason: COUGH Heparin Sodium (Porcine) (Heparin -) 5,000 unit SQ TID [facility] Last Admin: 01/25/17 06:08 Dose: 5,000 unit Levothyroxine Sodium (Synthroid -) 75 mcg PO DAILY@0700 [facility] Last Admin: 01/25/17 06:08 Dose: 75 mcg Lidocaine (Lidoderm Patch -) 1 patch TP DAILY [facility] Last Admin: 01/25/17 09:51 Dose: 1 patch Methyl Salicylate ([place] -) 1 applic TP DAILY [facility] Last Admin: 01/25/17 10:10 Dose: 1 applic Metoclopramide HCl (Reglan Injection -) 10 mg IVPB Q6H PRN PRN Reason: NAUSEA AND/OR VOMITING Metoprolol Tartrate (Lopressor -) 12.5 mg PO BID [facility] Last Admin: 01/25/17 09:52 Dose: 12.5 mg Miscellaneous (Lidoderm Patch Removal) 1 each MC DAILY@2200 [facility] Last Admin: 01/24/17 21:13 Dose: 1 each Oxycodone HCl (Roxicodone -) 10 mg PO Q6H PRN PRN Reason: PAIN LEVEL 6-10 Last Admin: 01/20/17 09:10 Dose: 10 mg Oxycodone HCl (Roxicodone -) 5 mg PO Q6H PRN PRN Reason: PAIN LEVEL 1-5 Last Admin: 01/20/17 23:18 Dose: 5 mg Sodium Chloride ([place]al [place] -) 2 spray NS DAILY PRN PRN Reason: NASAL CONGESTION Last Admin: 01/20/17 06:16 Dose: 2 sprays Tiotropium [place] (Spiriva -) 1 puff IH DAILY [facility] Last Admin: 01/25/17 09:52 Dose: 1 puff A/P UTI Septic vs Cardiogenic Shock resolved Severe LV Systolic Dysfunction s/p Bi-V ICD Atrial Fibrillation Mitral Regurgitation Pulmonary HTN s/p AVR CAD COPD Hyponatremia Hypothyroidism - continue lasix - monitor urine output, creatinine - daily weights - rate control - ASA, plavix - O2 to keep Spo2 >90% - antibiotics completed - inhaled bronchodilators - PO as tolerated - DVT prophylaxis
[2017-01-25] MEDS ORDERED: ONDANSETRON *ODT* 4 MG TABLET SL PRN (12:07)
--- NOTE | 2017-01-25 12:14 | PN ---
Physical Exam: SUBJECTIVE: Patient seen and examined. She feels more short of breath today and nauseated. OBJECTIVE: Vital Signs Period Temp Pulse Resp BP Sys/Camilo Pulse Ox Last 24 Hr 97.6 F-97.9 F 101-122 22-26 92-110/59-80 95-99 PE Neuro: alert, awake, cn 2-12 Pulm: L>R crackles, +nc CV: s1 s2 tachycardia regular, +systolic murmur Abd: s nt nd + bs Ext: +1 edema bilaterally, warm le Laboratory Results - last 24 hr 01/25/17 01/25/17 01/25/17 06:10 06:10 08:25 WBC 12.4 H RBC 4.03 Hgb 10.8 Hct 32.1 L MCV 79.7 L MCH 26.8 MCHC 33.6 RDW 15.9 H Plt Count 367 MPV 8.2 Neutrophils % 80.2 Lymphocytes % 6.8 L Monocytes % 12.2 H Eosinophils % 0.6 Basophils % 0.2 Sodium 129 L Potassium 3.7 Chloride 81 L Carbon Dioxide 34 H Anion Gap 14 BUN 20 H Creatinine 0.5 L Creat Clearance w eGFR > 60 Random Glucose 83 Calcium 8.7 Total Bilirubin 1.1 H 1.0 Direct Bilirubin 0.5 H AST 33 D 38 H ALT 97 H D 100 H Alkaline Phosphatase 180 H 191 H Total Protein 5.8 L 6.1 L Albumin 2.4 L 2.4 L Active Medications Generic Name Dose Route Start Last Admin Trade Name Freq PRN Reason Stop Dose Admin Alprazolam 0.25 mg 01/21/17 15:15 Xanax - PO DAILY PRN ANXIETY Aspirin 81 mg 01/19/17 10:00 01/25/17 09:51 Asa - PO 81 mg DAILY MAGO Administration Budesonide/Formoterol Fumarate 1 puff 01/18/17 22:00 01/25/17 09:53 Symbicort 80/4.5mcg - IH 1 puff BID MAGO Administration Calcium Carbonate 650 mg 01/24/17 14:00 01/25/17 09:51 Calcium Carbonate - PO 650 mg BID MAGO Administration Clopidogrel Bisulfate 75 mg 01/19/17 10:00 01/25/17 09:52 Plavix - PO 75 mg DAILY MAGO Administration Docusate Sodium 100 mg 01/22/17 10:00 01/25/17 09:51 Colace - PO 100 mg BID MAGO Administration Furosemide 40 mg 01/23/17 14:00 01/25/17 06:08 Lasix - PO 40 mg BID@0600,1400 MAGO Administration Guaifenesin 10 ml 01/23/17 14:46 Robitussin - PO Q6H PRN COUGH Heparin Sodium (Porcine) 5,000 unit 01/18/17 22:00 01/25/17 06:08 Heparin - SQ 5,000 unit TID MAGO Administration Levothyroxine Sodium 75 mcg 01/19/17 07:00 01/25/17 06:08 Synthroid - PO 75 mcg DAILY@0700 MAGO Administration Lidocaine 1 patch 01/19/17 10:00 01/25/17 09:51 Lidoderm Patch - TP 1 patch DAILY MAGO Administration Methyl Salicylate 1 applic 01/19/17 16:15 01/25/17 10:10 Malick-Stewart - TP 1 applic DAILY MAGO Administration Metoclopramide HCl 10 mg 01/18/17 19:41 Reglan Injection - IVPB Q6H PRN NAUSEA AND/OR VOMITING Metoprolol Tartrate 12.5 mg 01/18/17 22:00 01/25/17 09:52 Lopressor - PO 12.5 mg BID MAGO Administration Miscellaneous 1 each 01/18/17 22:00 01/24/17 21:13 Lidoderm Patch Removal MC 1 each DAILY@2200 MAGO Administration Oxycodone HCl 10 mg 01/18/17 19:41 01/20/17 09:10 Roxicodone - PO 10 mg Q6H PRN Administration PAIN LEVEL 6-10 Oxycodone HCl 5 mg 01/18/17 19:41 01/20/17 23:18 Roxicodone - PO 5 mg Q6H PRN Administration PAIN LEVEL 1-5 Sodium Chloride 2 spray 01/19/17 19:37 01/20/17 06:16 [place] Nasal [place] - NS 2 sprays DAILY PRN Administration NASAL CONGESTION Tiotropium [place] 1 puff 01/19/17 10:00 01/25/17 09:52 Spiriva - IH 1 puff DAILY MAGO Administration Imaging: - ECHO 01/16: LVSF severely reduced, LV mildly dilated, bioprosthetic valve, Mod TR, MR, RVSF mod-severe reduced, Assessment: 81 year old female with PMHx of HTN, hyperlipidemia, CAD s/p CABG, AVR, severe LV systolic dysfunction s/p Bi-V ICD, combined systolic and diastolic heart failure, hypothyroidism admitted with dysuria, right flank pain. Plan: 1. Cardiogenic shock, acute on chronic systolic and diastolic heart failure, severe LV systolic dysfunction - Shock resolved, s/p dopamine - Continue low dose metoprolol 12.5mg BID - Transition to PO lasix 40mg BID - FERNANDO/ARB problematic in past d/t electrolyte disturbances 2. Hypotension - Low normal today, will give BB due to tachycardia 3. Transaminitis - Possible d/t shock liver from decreased perfusion state - Up trending slight today - Hold Zocor 4. CAD s/p CABG, AVR - Continue ASA - Continue Plavix 5. NSVT - On bb 6. Suspected sepsis 2/2 UTI - Urine culture negative - Off all abx 7. BETTIE - Resolved 8. Hypothyroidism - Continue Synthroid 75mcg daily 9. Hyponatremia - Overall improved 10. Hyperkalemia - Resolved 11. Hyperlipidemia - Hold Zocor 12. PPX - Heparin 5,000u sq tid Visit type - Emergency Visit Emergency Visit: Yes ED Registration Date: 01/12/17 Care time: The patient presented to the Emergency Department on the above date and was hospitalized for further evaluation of their emergent condition. - New Patient This patient is new to me today: No - Critical Care Critical Care patient: No
--- NOTE | 2017-01-25 12:42 | PN ---
Progress Note, Physician History of Present Illness: Pt seen and examined at bedside. She is awake and alert. She had shortness of breath this morning. She denies chest pain. - Current Medication List Current Medications: Active Medications Alprazolam (Xanax -) 0.25 mg PO DAILY PRN PRN Reason: ANXIETY Last Admin: 01/25/17 12:22 Dose: 0.25 mg Aspirin (Asa -) 81 mg PO DAILY [facility] Last Admin: 01/25/17 09:51 Dose: 81 mg Budesonide/Formoterol Fumarate (Symbicort 80/4.5mcg -) 1 puff IH BID [facility] Last Admin: 01/25/17 09:53 Dose: 1 puff Calcium Carbonate (Calcium Carbonate -) 650 mg PO BID [facility] Last Admin: 01/25/17 09:51 Dose: 650 mg Clopidogrel Bisulfate (Plavix -) 75 mg PO DAILY [facility] Last Admin: 01/25/17 09:52 Dose: 75 mg Docusate Sodium (Colace -) 100 mg PO BID [facility] Last Admin: 01/25/17 09:51 Dose: 100 mg Furosemide (Lasix -) 40 mg PO BID@0600,1400 [facility] Last Admin: 01/25/17 06:08 Dose: 40 mg Guaifenesin (Robitussin -) 10 ml PO Q6H PRN PRN Reason: COUGH Heparin Sodium (Porcine) (Heparin -) 5,000 unit SQ TID [facility] Last Admin: 01/25/17 06:08 Dose: 5,000 unit Levothyroxine Sodium (Synthroid -) 75 mcg PO DAILY@0700 [facility] Last Admin: 01/25/17 06:08 Dose: 75 mcg Lidocaine (Lidoderm Patch -) 1 patch TP DAILY [facility] Last Admin: 01/25/17 09:51 Dose: 1 patch Methyl Salicylate (Malick-Stewart -) 1 applic TP DAILY [facility] Last Admin: 01/25/17 10:10 Dose: 1 applic Metoclopramide HCl (Reglan Injection -) 10 mg IVPB Q6H PRN PRN Reason: NAUSEA AND/OR VOMITING Metoprolol Tartrate (Lopressor -) 12.5 mg PO BID [facility] Last Admin: 01/25/17 09:52 Dose: 12.5 mg Miscellaneous (Lidoderm Patch Removal) 1 each MC DAILY@2200 [facility] Last Admin: 01/24/17 21:13 Dose: 1 each Ondansetron HCl (Zofran Odt -) 4 mg SL Q6H PRN PRN Reason: NAUSEA Last Admin: 01/25/17 12:22 Dose: 4 mg Oxycodone HCl (Roxicodone -) 10 mg PO Q6H PRN PRN Reason: PAIN LEVEL 6-10 Last Admin: 01/20/17 09:10 Dose: 10 mg Oxycodone HCl (Roxicodone -) 5 mg PO Q6H PRN PRN Reason: PAIN LEVEL 1-5 Last Admin: 01/20/17 23:18 Dose: 5 mg Sodium Chloride ([place] Nasal [place] -) 2 spray NS DAILY PRN PRN Reason: NASAL CONGESTION Last Admin: 01/20/17 06:16 Dose: 2 sprays Tiotropium [place] (Spiriva -) 1 puff IH DAILY MAGO Last Admin: 01/25/17 09:52 Dose: 1 puff - Objective Vital Signs: Vital Signs Temperature 97.9 F 01/25/17 08:00 Pulse Rate 122 H 01/25/17 10:00 Respiratory Rate 26 H 01/25/17 10:00 Blood Pressure 107/77 01/25/17 10:00 O2 Sat by Pulse Oximetry (%) 99 01/25/17 10:00 Constitutional: Yes: Calm Eyes: Yes: Conjunctiva Clear HENT: Yes: Atraumatic Neck: Yes: Supple Cardiovascular: Yes: S1, S2 Respiratory: Yes: On Nasal O2 Gastrointestinal: Yes: Soft Genitourinary: Yes: WNL Extremities: Yes: WNL Edema: Yes Edema: LLE: 1+, RLE: 1+ Neurological: Yes: Oriented Psychiatric: Yes: Oriented Labs: CBC, BMP 01/25/17 06:10 01/25/17 06:10 INR, PTT INR 1.12 (0.82-1.09) 01/12/17 15:45 Problem List - Problems (1) Hypokalemia Code(s): E87.6 - HYPOKALEMIA (2) Hyponatremia Code(s): E87.1 - HYPO-OSMOLALITY AND HYPONATREMIA (3) UTI (urinary tract infection) Code(s): N39.0 - URINARY TRACT INFECTION, SITE NOT SPECIFIED Qualifiers: Urinary tract infection type: site unspecified Hematuria presence: without hematuria Qualified Code(s): N39.0 - Urinary tract infection, site not specified; N39.0 - Urinary tract infection, site not specified; R31.9 - Hematuria, unspecified; R31.9 - Hematuria, unspecified (4) Acute on chronic systolic CHF (congestive heart failure) Code(s): I50.23 - ACUTE ON CHRONIC SYSTOLIC (CONGESTIVE) HEART FAILURE (5) COPD (chronic obstructive pulmonary disease) Code(s): J44.9 - CHRONIC OBSTRUCTIVE PULMONARY DISEASE, UNSPECIFIED Assessment/Plan Current Medications Generic Name Dose Route Start Last Admin Trade Name Freq PRN Reason Stop Dose Admin Alprazolam 0.25 mg 01/21/17 15:15 01/25/17 12:22 Xanax - PO 0.25 mg DAILY PRN Administration ANXIETY Aspirin 81 mg 01/19/17 10:00 01/25/17 09:51 Asa - PO 81 mg DAILY MAGO Administration Budesonide/Formoterol Fumarate 1 puff 01/18/17 22:00 01/25/17 09:53 Symbicort 80/4.5mcg - IH 1 puff BID MAGO Administration Calcium Carbonate 650 mg 01/24/17 14:00 01/25/17 09:51 Calcium Carbonate - PO 650 mg BID MAGO Administration Clopidogrel Bisulfate 75 mg 01/19/17 10:00 01/25/17 09:52 Plavix - PO 75 mg DAILY MAGO Administration Docusate Sodium 100 mg 01/22/17 10:00 01/25/17 09:51 Colace - PO 100 mg BID MAGO Administration Furosemide 40 mg 01/23/17 14:00 01/25/17 06:08 Lasix - PO 40 mg BID@0600,1400 MAGO Administration Guaifenesin 10 ml 01/23/17 14:46 Robitussin - PO Q6H PRN COUGH Heparin Sodium (Porcine) 5,000 unit 01/18/17 22:00 01/25/17 06:08 Heparin - SQ 5,000 unit TID MAGO Administration Levothyroxine Sodium 75 mcg 01/19/17 07:00 01/25/17 06:08 Synthroid - PO 75 mcg DAILY@0700 MAGO Administration Lidocaine 1 patch 01/19/17 10:00 01/25/17 09:51 Lidoderm Patch - TP 1 patch DAILY MAGO Administration Methyl Salicylate 1 applic 01/19/17 16:15 01/25/17 10:10 Malick-Stewart - TP 1 applic DAILY MAGO Administration Metoclopramide HCl 10 mg 01/18/17 19:41 Reglan Injection - IVPB Q6H PRN NAUSEA AND/OR VOMITING Metoprolol Tartrate 12.5 mg 01/18/17 22:00 01/25/17 09:52 Lopressor - PO 12.5 mg BID MAGO Administration Miscellaneous 1 each 01/18/17 22:00 01/24/17 21:13 Lidoderm Patch Removal MC 1 each DAILY@2200 MAGO Administration Ondansetron HCl 4 mg 01/25/17 12:07 01/25/17 12:22 Zofran Odt - SL 4 mg Q6H PRN Administration NAUSEA Oxycodone HCl 10 mg 01/18/17 19:41 01/20/17 09:10 Roxicodone - PO 10 mg Q6H PRN Administration PAIN LEVEL 6-10 Oxycodone HCl 5 mg 01/18/17 19:41 01/20/17 23:18 Roxicodone - PO 5 mg Q6H PRN Administration PAIN LEVEL 1-5 Sodium Chloride 2 spray 01/19/17 19:37 01/20/17 06:16 [place] Nasal [place] - NS 2 sprays DAILY PRN Administration NASAL CONGESTION Tiotropium [place] 1 puff 01/19/17 10:00 01/25/17 09:52 Spiriva - IH 1 puff DAILY MAGO Administration 1. UTI 2. hyponatremia 3. paralyzed hemidiaphragm 4. HTN 5. valvular heart disease 6. azotemia 7. hypothyroid 8. CAD 9. hypokalemia resolved 10. alkalosis 11. transaminitis 12. anxiety 13. CHF 14. hyperkalemia Plan - cont with lasix - repeat labs in am - hyponatremia likely in part from CHF - monitor LFTs - pt/rehab - discussed with medical team - will follow Dr Bella
[2017-01-25] MEDS: LIDOCAINE PATCH REMOVAL MC SCH (22:38)
[2017-01-26] MEDS ORDERED: BENZOCAINE/MENTH/CETYLPYRD CL 1 EACH LOZENGE MM PRN (05:34)
[2017-01-26 06:24] LABS: BASOPHIL 0.2 % (0-2.0); EOSINOPHIL 0.6 % (0-4.5); MCH 26.5 pg (25.7-33.7); MEAN CELL VOLUME 80.4 fl (80-96); MEAN PLT VOLUME 8.2 fl (7.5-11.1); NEUTROPHILS 80.9 % (42.8-82.8); PLATELET COUNT 336 K/MM3 (134-434); RDW 15.8 % (11.6-15.6); WHITE BLOOD COUNT 12.4 K/mm3 (4.0-10.0)
[2017-01-26] MEDS: LEVOTHYROXINE NA 75 MCG TABLET (FP) PO SCH (06:29)
[2017-01-26] MEDS: FUROSEMIDE 40 MG TABLET (FP) PO SCH ×2 (06:29→14:26)
[2017-01-26 06:55] LABS: ANION GAP 11 (8-16); CALCIUM 8.7 mg/dL (8.5-10.1); CO2 37 mmol/L (21-32); CREATININE 0.6 mg/dL (0.55-1.02); GLUCOSE,RANDOM 85 mg/dL (74-106); MAGNESIUM 1.7 mg/dL (1.8-2.4)
--- NOTE | 2017-01-26 08:29 | PN ---
Progress Note, Physician Chief Complaint: Pt A&Ox3; sitting up at bedside; appetite fair; no dyspnea or chest pain; no palpitations; + dry coufh; wants to go to rehabilitation. History of Present Illness: Ms. Hou is an 81 yo white woman with a significant past medical history of systolic CHF, CAD s/p [place]-->CABG, bioprosthetic AoVR, and ICD; HTN, hyperlipidemia, overweight, anxiety/depression, who presents with significant abdominal discomfort after trial of oral antibiotics for UTI. PCP called to alert of presentation to ER, ID consulted as patient has extensive allergies to medication. The patient denies chest pain, shortness of breath, headache and dizziness. Denies fever, chills, nausea, vomit, diarrhea and constipation. Reports her dysuria has decreased but is not gone, still has frequency and urgency. - Current Medication List Current Medications: Active Medications Alprazolam (Xanax -) 0.25 mg PO DAILY PRN PRN Reason: ANXIETY Last Admin: 01/25/17 12:22 Dose: 0.25 mg Aspirin (Asa -) 81 mg PO DAILY [facility] Last Admin: 01/25/17 09:51 Dose: 81 mg Benzocaine/Menthol (Cepacol Lozenge -) 1 each MM PRN PRN PRN Reason: SORE THROAT Budesonide/Formoterol Fumarate (Symbicort 80/4.5mcg -) 1 puff IH BID [facility] Last Admin: 01/25/17 22:38 Dose: 1 puff Calcium Carbonate (Calcium Carbonate -) 650 mg PO BID [facility] Last Admin: 01/25/17 23:26 Dose: 650 mg Clopidogrel Bisulfate (Plavix -) 75 mg PO DAILY [facility] Last Admin: 01/25/17 09:52 Dose: 75 mg Docusate Sodium (Colace -) 100 mg PO BID [facility] Last Admin: 01/25/17 22:33 Dose: 100 mg Furosemide (Lasix -) 40 mg PO BID@0600,1400 [facility] Last Admin: 01/26/17 06:29 Dose: 40 mg Guaifenesin (Robitussin -) 10 ml PO Q6H PRN PRN Reason: COUGH Last Admin: 01/25/17 13:41 Dose: 10 ml Levothyroxine Sodium (Synthroid -) 75 mcg PO DAILY@0700 [facility] Last Admin: 01/26/17 06:29 Dose: 75 mcg Lidocaine (Lidoderm Patch -) 1 patch TP DAILY [facility] Last Admin: 01/25/17 09:51 Dose: 1 patch Methyl Salicylate (Malick-Stewart -) 1 applic TP DAILY [facility] Last Admin: 01/25/17 10:10 Dose: 1 applic Metoclopramide HCl (Reglan Injection -) 10 mg IVPB Q6H PRN PRN Reason: NAUSEA AND/OR VOMITING Metoprolol Tartrate (Lopressor -) 12.5 mg PO BID [facility] Last Admin: 01/25/17 22:33 Dose: 12.5 mg Miscellaneous (Lidoderm Patch Removal) 1 each MC DAILY@2200 [facility] Last Admin: 01/25/17 22:38 Dose: 1 each Ondansetron HCl (Zofran Odt -) 4 mg SL Q6H PRN PRN Reason: NAUSEA Last Admin: 01/25/17 12:22 Dose: 4 mg Oxycodone HCl (Roxicodone -) 10 mg PO Q6H PRN PRN Reason: PAIN LEVEL 6-10 Last Admin: 01/20/17 09:10 Dose: 10 mg Oxycodone HCl (Roxicodone -) 5 mg PO Q6H PRN PRN Reason: PAIN LEVEL 1-5 Last Admin: 01/20/17 23:18 Dose: 5 mg Sodium Chloride ([place] Nasal [place] -) 2 spray NS DAILY PRN PRN Reason: NASAL CONGESTION Last Admin: 01/20/17 06:16 Dose: 2 sprays Tiotropium [place] (Spiriva -) 1 puff IH DAILY [facility] Last Admin: 01/25/17 09:52 Dose: 1 puff - Objective Vital Signs: Vital Signs Temperature 98.5 F 01/26/17 06:00 Pulse Rate 96 H 01/26/17 06:00 Respiratory Rate 21 01/26/17 06:00 Blood Pressure 94/62 01/26/17 06:00 O2 Sat by Pulse Oximetry (%) 100 01/25/17 22:00 Labs: CBC, BMP 01/26/17 05:10 01/26/17 05:10 INR, PTT INR 1.12 (0.82-1.09) 01/12/17 15:45 Problem List - Problems (1) Anxiety 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 Code(s): F41.0 - PANIC DISORDER [EPISODIC PAROXYSMAL ANXIETY] (2) CAD (coronary artery disease) Code(s): I25.10 - ATHSCL HEART DISEASE OF [place] CORONARY ARTERY W/O ANG PCTRS (3) COPD bronchitis Code(s): J44.9 - CHRONIC OBSTRUCTIVE PULMONARY DISEASE, UNSPECIFIED (4) Diabetes Code(s): E11.9 - TYPE 2 DIABETES MELLITUS WITHOUT COMPLICATIONS (5) Hx of CABG Code(s): Z95.1 - PRESENCE OF AORTOCORONARY BYPASS GRAFT (6) Hyperlipidemia Code(s): E78.5 - HYPERLIPIDEMIA, UNSPECIFIED (7) Hypertension Code(s): I10 - ESSENTIAL (PRIMARY) HYPERTENSION (8) Hypothyroidism Code(s): E03.9 - HYPOTHYROIDISM, UNSPECIFIED (9) ICD (implantable cardioverter-defibrillator) in place Code(s): Z95.810 - PRESENCE OF AUTOMATIC (IMPLANTABLE) CARDIAC DEFIBRILLATOR (10) Sleep apnea in adult Code(s): G47.33 - OBSTRUCTIVE SLEEP APNEA (ADULT) (PEDIATRIC) (11) Valvular heart disease Code(s): I38 - ENDOCARDITIS, VALVE UNSPECIFIED (12) Acute on chronic systolic and diastolic heart failure, NYHA class 4 Code(s): I50.43 - ACUTE ON CHRONIC COMBINED SYSTOLIC AND DIASTOLIC HRT FAIL (13) Aortic valve replaced Code(s): Z95.2 - PRESENCE OF PROSTHETIC HEART VALVE (14) Fatty liver Code(s): K76.0 - FATTY (CHANGE OF) LIVER, NOT ELSEWHERE CLASSIFIED
[2017-01-26] MEDS: DOCUSATE SODIUM 100 MG CAPSULE (FP) PO SCH (09:37)
[2017-01-26] MEDS: ASPIRIN 81 MG CHEWABLE TABLETS PO SCH (09:38)
[2017-01-26] MEDS: LIDOCAINE 5% TOPICAL PATCH TP SCH (09:38)
[2017-01-26] MEDS: CLOPIDOGREL BISULFATE 75 MG TABLET (FP) PO SCH (09:38)
[2017-01-26] MEDS ORDERED: PT OWN MED DRAWER 7, Y5N ONE (09:41)
[2017-01-26] MEDS: TIOTROPIUM BROMIDE 18 MCG/INH (DEVICE W/ 5 CAPSULES) IH SCH (10:00)
[2017-01-26] MEDS: BUDESONIDE/FORMETEROL FUMARATE 80/4.5 mcg INHALER IH SCH (10:00)
[2017-01-26 10:02] LABS: ALBUMIN 2.4 g/dl (3.4-5.0); BILIRUBIN,DIRECT 0.5 mg/dL (0.0-0.2); BILIRUBIN,TOTAL 0.9 mg/dL (0.2-1.0); TOT PROT 5.8 g/dl (6.4-8.2)
[2017-01-26] MEDS: METHYL SALICYLATE/MENTHOL OINT 30 GM TUBE TP SCH (10:07)
[2017-01-26] MEDS: METOPROLOL TARTRATE 25 MG TABLET (FP) PO SCH (10:07)
[2017-01-26] MEDS: CALCIUM CARBONATE 650 MG TABLET PO SCH (10:07)
[2017-01-26] MEDS ORDERED: MAGNESIUM OXIDE 400 MG TABLET (FP) PO ONE (13:00)
--- NOTE | 2017-01-26 13:02 | EKG ---
Test Reason : Blood Pressure : / mmHG Vent. Rate : 112 BPM Atrial Rate : 105 BPM P-R Int : 000 ms QRS Dur : 138 ms QT Int : 312 ms P-R-T Axes : 068 -41 113 degrees QTc Int : 425 ms SINUS TACHYCARDIA PREMATURE VENTRICULAR COMPLEXES WITH OCCASIONAL atrial-sensed ventricular-paced complexes Confirmed by ROSSY FONSECA MD ([id number]) on 01/26/2017 1:02:06 PM Referred By: PAULO WAKEFIELD Confirmed By:ROSSY FONSECA MD
[2017-01-26 13:13] VITALS: BP 105/51; PULSE 94; TEMP 98.3
--- NOTE | 2017-01-26 13:51 | DS ---
Physical Examination Vital Signs: Vital Signs Temperature 98.3 F 01/26/17 13:12 Pulse Rate 94 H 01/26/17 13:12 Respiratory Rate 22 01/26/17 13:12 Blood Pressure 105/51 01/26/17 13:12 O2 Sat by Pulse Oximetry (%) 97 01/26/17 10:41 Labs: CBC, BMP 01/26/17 05:10 01/26/17 05:10 Discharge Summary Reason For Visit: URINARY TRACT INFECTION Current Active Problems Acute on chronic systolic and diastolic heart failure, NYHA class 4 (Acute) Aortic valve replaced (Acute) DVT prophylaxis (Acute) Elevated alanine aminotransferase (ALT) level (Acute) Elevated alkaline phosphatase level (Acute) Fatty liver (Acute) Hypokalemia (Acute) Hyponatremia (Acute) Transaminasemia (Acute) UTI (urinary tract infection) (Acute) Hospital Course: Discussed chest x-ray with Dr. Vee, who recommends watching off abx for now and repeat chest x-ray as outpatient Discussed with Dr. Ingram who cleared patient for discharge from cardiac standpoint. Condition: Improved - Instructions Diet, Activity, Other Instructions: Please return to the ED with new, persistent, or worsening symptoms. Please follow-up with providers as indicated. Please have you sodium checked in 2 days. Please have your chest x-ray repeated in 2 days Referrals: Marvin Pino MD [Staff Physician] - (Please follow-up with Dr. Pino within 1 week for further management of your elevated liver enzymes) Sourav Ingram MD [Staff Physician] - (Please follow-up with cardiology within 2-3 days for further management of your heart failure and lasix) Flori Bella MD [Primary Care Provider] - (Please follow-up with Dr. Bella within 1 week for further management of your sodium level) Joey Vee MD, MD [Staff Physician] - (Please follow-up with pulmonary within 1 week ) [facility] - Home Medications Comprehensive Discharge Medication List: Ambulatory Orders Aspirin [ASA -] 81 mg PO DAILY 08/10/15 Budesonide/Formeterol Fumarate [SYMBICORT 80/4.5mcg -] 1 inh PO BID 08/10/15 Tiotropium [place] [Spiriva] 1 inh PO DAILY 08/10/15 Levothyroxine [Synthroid -] 75 mcg PO DAILY 09/16/15 Clopidogrel Bisulfate [Clopidogrel] 75 mg PO DAILY 03/18/16 Alprazolam [Xanax] 0.25 mg PO DAILY PRN #0 tablet MDD 1mg 01/26/17 Calcium Carbonate - 650 mg PO BID tablet 01/26/17 Docusate Sodium [Colace -] 100 mg PO BID cap 01/26/17 Furosemide [Lasix -] 40 mg PO BID@0600,1400 tablet 01/26/17 Guaifenesin [Robitussin -] 10 ml PO Q6H PRN #0 ml 01/26/17 Heparin - 5,000 unit SQ BID vial 01/26/17 Lidocaine 5% Patch [Lidoderm -] 1 patch TP DAILY patch 01/26/17 Lidocaine Patch Removal [Lidoderm Patch Removal] 1 each MC DAILY@2200 each Methyl Salicylate/Menthol Oint [Analgesic [place] -] 1 applic TP DAILY applic Metoprolol Tartrate [Lopressor -] 12.5 mg PO BID tablet 01/26/17 Sodium Chloride Nasal [place] [[place] Nasal [place] -] 2 spray NS DAILY PRN #0 spray 01/26/17 - Discharge Referral Referred to [facility] No
--- NOTE | 2017-01-26 14:39 | PN ---
Progress Note, Physician History of Present Illness: Pt seen and examined at bedside. She feels that her breathing is improved from yesterday. - Current Medication List Current Medications: Active Medications Alprazolam (Xanax -) 0.25 mg PO DAILY PRN PRN Reason: ANXIETY Last Admin: 01/25/17 12:22 Dose: 0.25 mg Aspirin (Asa -) 81 mg PO DAILY [facility] Last Admin: 01/26/17 09:38 Dose: 81 mg Benzocaine/Menthol (Cepacol Lozenge -) 1 each MM PRN PRN PRN Reason: SORE THROAT Budesonide/Formoterol Fumarate (Symbicort 80/4.5mcg -) 1 puff IH BID [facility] Last Admin: 01/26/17 10:00 Dose: 1 puff Calcium Carbonate (Calcium Carbonate -) 650 mg PO BID [facility] Last Admin: 01/26/17 10:07 Dose: 650 mg Clopidogrel Bisulfate (Plavix -) 75 mg PO DAILY [facility] Last Admin: 01/26/17 09:38 Dose: 75 mg Docusate Sodium (Colace -) 100 mg PO BID [facility] Last Admin: 01/26/17 09:37 Dose: 100 mg Furosemide (Lasix -) 40 mg PO BID@0600,1400 [facility] Last Admin: 01/26/17 14:26 Dose: 40 mg Guaifenesin (Robitussin -) 10 ml PO Q6H PRN PRN Reason: COUGH Last Admin: 01/25/17 13:41 Dose: 10 ml Levothyroxine Sodium (Synthroid -) 75 mcg PO DAILY@0700 [facility] Last Admin: 01/26/17 06:29 Dose: 75 mcg Lidocaine (Lidoderm Patch -) 1 patch TP DAILY [facility] Last Admin: 01/26/17 09:38 Dose: 1 patch Methyl Salicylate (Malick-Stewart -) 1 applic TP DAILY [facility] Last Admin: 01/26/17 10:07 Dose: Not Given Metoclopramide HCl (Reglan Injection -) 10 mg IVPB Q6H PRN PRN Reason: NAUSEA AND/OR VOMITING Last Admin: 01/26/17 09:44 Dose: 10 mg Metoprolol Tartrate (Lopressor -) 12.5 mg PO BID [facility] Last Admin: 01/26/17 10:07 Dose: Not Given Miscellaneous (Lidoderm Patch Removal) 1 each MC DAILY@2200 [facility] Last Admin: 01/25/17 22:38 Dose: 1 each Ondansetron HCl (Zofran Odt -) 4 mg SL Q6H PRN PRN Reason: NAUSEA Last Admin: 01/25/17 12:22 Dose: 4 mg Oxycodone HCl (Roxicodone -) 10 mg PO Q6H PRN PRN Reason: PAIN LEVEL 6-10 Last Admin: 01/20/17 09:10 Dose: 10 mg Oxycodone HCl (Roxicodone -) 5 mg PO Q6H PRN PRN Reason: PAIN LEVEL 1-5 Last Admin: 01/20/17 23:18 Dose: 5 mg Sodium Chloride ([place] Nasal [place] -) 2 spray NS DAILY PRN PRN Reason: NASAL CONGESTION Last Admin: 01/20/17 06:16 Dose: 2 sprays Tiotropium [place] (Spiriva -) 1 puff IH DAILY [facility] Last Admin: 01/26/17 10:00 Dose: 1 puff - Objective Vital Signs: Vital Signs Temperature 98.3 F 01/26/17 13:12 Pulse Rate 94 H 01/26/17 13:12 Respiratory Rate 22 01/26/17 13:12 Blood Pressure 105/51 01/26/17 13:12 O2 Sat by Pulse Oximetry (%) 97 01/26/17 10:41 Constitutional: Yes: Calm Eyes: Yes: Conjunctiva Clear HENT: Yes: Atraumatic Neck: Yes: Supple Cardiovascular: Yes: S1, S2 Respiratory: Yes: On Nasal O2 Gastrointestinal: Yes: Soft Genitourinary: Yes: WNL Musculoskeletal: Yes: WNL Edema: Yes Edema: LLE: 1+, RLE: 1+ Neurological: Yes: Oriented Psychiatric: Yes: Oriented Labs: CBC, BMP 01/26/17 05:10 01/26/17 05:10 INR, PTT INR 1.12 (0.82-1.09) 01/12/17 15:45 Problem List - Problems (1) Hypokalemia Code(s): E87.6 - HYPOKALEMIA (2) Hyponatremia Code(s): E87.1 - HYPO-OSMOLALITY AND HYPONATREMIA (3) UTI (urinary tract infection) Code(s): N39.0 - URINARY TRACT INFECTION, SITE NOT SPECIFIED Qualifiers: Urinary tract infection type: site unspecified Hematuria presence: without hematuria Qualified Code(s): N39.0 - Urinary tract infection, site not specified; N39.0 - Urinary tract infection, site not specified; R31.9 - Hematuria, unspecified; R31.9 - Hematuria, unspecified (4) Acute on chronic systolic CHF (congestive heart failure) Code(s): I50.23 - ACUTE ON CHRONIC SYSTOLIC (CONGESTIVE) HEART FAILURE (5) COPD (chronic obstructive pulmonary disease) Code(s): J44.9 - CHRONIC OBSTRUCTIVE PULMONARY DISEASE, UNSPECIFIED Assessment/Plan Current Medications Generic Name Dose Route Start Last Admin Trade Name Freq PRN Reason Stop Dose Admin Alprazolam 0.25 mg 01/21/17 15:15 01/25/17 12:22 Xanax - PO 0.25 mg DAILY PRN Administration ANXIETY Aspirin 81 mg 01/19/17 10:00 01/26/17 09:38 Asa - PO 81 mg DAILY MAGO Administration Benzocaine/Menthol 1 each 01/26/17 05:34 Cepacol Lozenge - MM PRN PRN SORE THROAT Budesonide/Formoterol Fumarate 1 puff 01/18/17 22:00 01/26/17 10:00 Symbicort 80/4.5mcg - IH 1 puff BID MAGO Administration Calcium Carbonate 650 mg 01/24/17 14:00 01/26/17 10:07 Calcium Carbonate - PO 650 mg BID MAGO Administration Clopidogrel Bisulfate 75 mg 01/19/17 10:00 01/26/17 09:38 Plavix - PO 75 mg DAILY MAGO Administration Docusate Sodium 100 mg 01/22/17 10:00 01/26/17 09:37 Colace - PO 100 mg BID MAGO Administration Furosemide 40 mg 01/23/17 14:00 01/26/17 14:26 Lasix - PO 40 mg BID@0600,1400 MAGO Administration Guaifenesin 10 ml 01/23/17 14:46 01/25/17 13:41 Robitussin - PO 10 ml Q6H PRN Administration COUGH Levothyroxine Sodium 75 mcg 01/19/17 07:00 01/26/17 06:29 Synthroid - PO 75 mcg DAILY@0700 MAGO Administration Lidocaine 1 patch 01/19/17 10:00 01/26/17 09:38 Lidoderm Patch - TP 1 patch DAILY [facility]O Administration Methyl Salicylate 1 applic 01/19/17 16:15 01/26/17 10:07 Malick-Stewart - TP Not Given DAILY [facility]O Metoclopramide HCl 10 mg 01/18/17 19:41 01/26/17 09:44 Reglan Injection - IVPB 10 mg Q6H PRN Administration NAUSEA AND/OR VOMITING Metoprolol Tartrate 12.5 mg 01/18/17 22:00 01/26/17 10:07 Lopressor - PO Not Given BID [facility]O Miscellaneous 1 each 01/18/17 22:00 01/25/17 22:38 Lidoderm Patch Removal MC 1 each DAILY@2200 [facility]O Administration Ondansetron HCl 4 mg 01/25/17 12:07 01/25/17 12:22 Zofran Odt - SL 4 mg Q6H PRN Administration NAUSEA Oxycodone HCl 10 mg 01/18/17 19:41 01/20/17 09:10 Roxicodone - PO 10 mg Q6H PRN Administration PAIN LEVEL 6-10 Oxycodone HCl 5 mg 01/18/17 19:41 01/20/17 23:18 Roxicodone - PO 5 mg Q6H PRN Administration PAIN LEVEL 1-5 Sodium Chloride 2 spray 01/19/17 19:37 01/20/17 06:16 [place] Nasal [place] - NS 2 sprays DAILY PRN Administration NASAL CONGESTION Tiotropium [place] 1 puff 01/19/17 10:00 01/26/17 10:00 Spiriva - IH 1 puff DAILY MAGO Administration 1. UTI 2. hyponatremia 3. paralyzed hemidiaphragm 4. HTN 5. valvular heart disease 6. azotemia 7. hypothyroid 8. CAD 9. hypokalemia resolved 10. alkalosis 11. transaminitis 12. anxiety 13. CHF 14. hyperkalemia Plan - cont lasix - restrict free water - avoid nsaids - hyponatremia likely in part from CHF - pt/rehab - will follow Dr Bella
--- NOTE | 2017-01-26 14:46 | PN ---
Progress Note, Physician History of Present Illness: No events. Anxious - Current Medication List Current Medications: Active Medications Alprazolam (Xanax -) 0.25 mg PO DAILY PRN PRN Reason: ANXIETY Last Admin: 01/25/17 12:22 Dose: 0.25 mg Aspirin (Asa -) 81 mg PO DAILY [facility] Last Admin: 01/26/17 09:38 Dose: 81 mg Benzocaine/Menthol (Cepacol Lozenge -) 1 each MM PRN PRN PRN Reason: SORE THROAT Budesonide/Formoterol Fumarate (Symbicort 80/4.5mcg -) 1 puff IH BID [facility] Last Admin: 01/26/17 10:00 Dose: 1 puff Calcium Carbonate (Calcium Carbonate -) 650 mg PO BID [facility] Last Admin: 01/26/17 10:07 Dose: 650 mg Clopidogrel Bisulfate (Plavix -) 75 mg PO DAILY [facility] Last Admin: 01/26/17 09:38 Dose: 75 mg Docusate Sodium (Colace -) 100 mg PO BID [facility] Last Admin: 01/26/17 09:37 Dose: 100 mg Furosemide (Lasix -) 40 mg PO BID@0600,1400 [facility] Last Admin: 01/26/17 14:26 Dose: 40 mg Guaifenesin (Robitussin -) 10 ml PO Q6H PRN PRN Reason: COUGH Last Admin: 01/25/17 13:41 Dose: 10 ml Levothyroxine Sodium (Synthroid -) 75 mcg PO DAILY@0700 [facility] Last Admin: 01/26/17 06:29 Dose: 75 mcg Lidocaine (Lidoderm Patch -) 1 patch TP DAILY [facility] Last Admin: 01/26/17 09:38 Dose: 1 patch Methyl Salicylate (Malick-Stewart -) 1 applic TP DAILY [facility] Last Admin: 01/26/17 10:07 Dose: Not Given Metoclopramide HCl (Reglan Injection -) 10 mg IVPB Q6H PRN PRN Reason: NAUSEA AND/OR VOMITING Last Admin: 01/26/17 09:44 Dose: 10 mg Metoprolol Tartrate (Lopressor -) 12.5 mg PO BID [facility] Last Admin: 01/26/17 10:07 Dose: Not Given Miscellaneous (Lidoderm Patch Removal) 1 each MC DAILY@2200 [facility] Last Admin: 01/25/17 22:38 Dose: 1 each Ondansetron HCl (Zofran Odt -) 4 mg SL Q6H PRN PRN Reason: NAUSEA Last Admin: 01/25/17 12:22 Dose: 4 mg Oxycodone HCl (Roxicodone -) 10 mg PO Q6H PRN PRN Reason: PAIN LEVEL 6-10 Last Admin: 01/20/17 09:10 Dose: 10 mg Oxycodone HCl (Roxicodone -) 5 mg PO Q6H PRN PRN Reason: PAIN LEVEL 1-5 Last Admin: 01/20/17 23:18 Dose: 5 mg Sodium Chloride ([place] Nasal [place] -) 2 spray NS DAILY PRN PRN Reason: NASAL CONGESTION Last Admin: 01/20/17 06:16 Dose: 2 sprays Tiotropium [place] (Spiriva -) 1 puff IH DAILY [facility] Last Admin: 01/26/17 10:00 Dose: 1 puff - Objective Vital Signs: Vital Signs Temperature 98.3 F 01/26/17 13:12 Pulse Rate 94 H 01/26/17 13:12 Respiratory Rate 22 01/26/17 13:12 Blood Pressure 105/51 01/26/17 13:12 O2 Sat by Pulse Oximetry (%) 97 01/26/17 10:41 Constitutional: Yes: No Distress, Anxious HENT: Yes: Atraumatic Neck: Yes: Supple Cardiovascular: Yes: Regular Rate and Rhythm Respiratory: Yes: Regular Gastrointestinal: Yes: Normal Bowel Sounds. No: Ascites, Tenderness, Vomiting Labs: CBC, BMP 01/26/17 05:10 01/26/17 05:10 INR, PTT INR 1.12 (0.82-1.09) 01/12/17 15:45 Hepatic Panel Total Bilirubin 0.9 mg/dL (0.2-1.0) 01/26/17 05:10 Direct Bilirubin 0.5 mg/dL (0.0-0.2) H 01/26/17 05:10 AST 24 U/L (15-37) D 01/26/17 05:10 ALT 72 U/L (12-78) D 01/26/17 05:10 Alkaline Phosphatase 166 U/L (45-117) H 01/26/17 05:10 Albumin 2.4 g/dl (3.4-5.0) L 01/26/17 05:10 Problem List - Problems (1) Elevated alkaline phosphatase level Assessment/Plan: Trending down Avoid NSAIDs and acetaminophen if possible Maintain adequate perfusion Discussed with patient Code(s): R74.8 - ABNORMAL LEVELS OF OTHER SERUM ENZYMES (2) Transaminasemia Code(s): R74.0 - NONSPEC ELEV OF LEVELS OF TRANSAMNS & LACTIC ACID DEHYDRGNSE
== END 2017-01-26 16:10 | DRG 871 ==
LOC: JER 14:37 → JERBED 18:49 → J6S 19:59 → J2W 01-14 03:31 → JICU 01-15 14:48 → J2W 01-18 19:37
PROVIDERS: ADMIT Internal Medicine; ATTEND Registered Nurse
DX: A41.9 Sepsis, unspecified organism (principal); I50.43 Acute on chronic combined systolic (congestive) and diastolic (congestive) heart failure; R57.0 Cardiogenic shock; N39.0 Urinary tract infection, site not specified; E87.1 Hypo-osmolality and hyponatremia; N17.9 Acute kidney failure, unspecified; E87.3 Alkalosis; I47.2 Ventricular tachycardia; I25.10 Atherosclerotic heart disease of native coronary artery without angina pectoris; B96.29 Other Escherichia coli [E. coli] as the cause of diseases classified elsewhere; I08.3 Combined rheumatic disorders of mitral, aortic and tricuspid valves; J44.9 Chronic obstructive pulmonary disease, unspecified; E78.5 Hyperlipidemia, unspecified; I27.20 Pulmonary hypertension, unspecified; M54.5 Low back pain; I11.0 Hypertensive heart disease with heart failure; J98.6 Disorders of diaphragm; F41.8 Other specified anxiety disorders; E87.6 Hypokalemia; R10.9 Unspecified abdominal pain; R74.8 Abnormal levels of other serum enzymes; E87.5 Hyperkalemia; K57.90 Diverticulosis of intestine, part unspecified, without perforation or abscess without bleeding; K76.0 Fatty (change of) liver, not elsewhere classified; R74.0 Nonspecific elevation of levels of transaminase and lactic acid dehydrogenase [LDH]; E11.9 Type 2 diabetes mellitus without complications; E03.9 Hypothyroidism, unspecified; E66.8 Other obesity; Z68.31 Body mass index [BMI] 31.0-31.9, adult; I48.91 Unspecified atrial fibrillation; Z96.651 Presence of right artificial knee joint; Z99.81 Dependence on supplemental oxygen; Z95.2 Presence of prosthetic heart valve; Z95.810 Presence of automatic (implantable) cardiac defibrillator; Z95.1 Presence of aortocoronary bypass graft; Z88.9 Allergy status to unspecified drugs, medicaments and biological substances
CPT/HCPCS: 36415; 71010-TC; 74000-TC; 74176-TC; 76705-TC; 80048; 80053; 80076; 80200; 81003; 82436; 82533; 82803; 83605; 83735; 83930; 84100; 84133; 84300; 84443; 84484; 85025; 85027; 85610; 86704; 86706; 86708; 86850; 86900; 86901; 87040; 87086; 87324; 87340; 87449; 93005; 93010; 93306-TC; 93970-TC; 97116-GP; 97162-GP; 99285-25; J1644

== ENCOUNTER 2017-01-31 21:03 | Inpatient (IN) | payer OTHER ==
[2017-01-31 21:08] VITALS: BMI 31.1
--- NOTE | 2017-01-31 21:38 | PDOC ---
History of Present Illness - General History Source: Patient Exam Limitations: No Limitations - History of Present Illness Initial Comments: 01/31/17 22:01 The patient is a 81 year old female resident from [facility], with a significant past medical history of Asthma, CHF, COPD (on 3L O2), HTN, HLD, CAD (s/p CABG 14 yrs ago), Hypothyroidism, recurrent UTIs who presents to the emergency department with SOB today. Patient was recently admitted for UTI on January 12 2017 and discharged on January 26 2017 to [facility]. Patient returns to the ED for worsening SOB, cough and worsening LE edema. Patient denies chest pain, headache or dizziness. She denies fever, chills, abdominal pain, nausea, vomit, diarrhea or constipation. She denies dysuria, frequency, urgency or hematuria. Patient denies recent travel. <Maryam Fuentes - Last Filed: 01/31/17 22:36> - General History Source: Patient <Alfredo Nayak - Last Filed: 01/31/17 23:35> - General Chief Complaint: Shortness of Breath Stated Complaint: COPD Time Seen by Provider: 01/31/17 21:24 Past History <Maryam Fuentes - Last Filed: 01/31/17 22:36> - Past Medical History Anemia: No Asthma: Yes Cancer: No Cardiac Disorders: Yes (CHF, , AVR(bioprosthetic) , CAD, CABG, Afib) CVA: No COPD: Yes (02 DEPENDENT 3L NC) CHF: Yes Dementia: No Diabetes: No GI Disorders: No Disorders: No HTN: Yes Hypercholesterolemia: Yes Liver Disease: No Seizures: No Thyroid Disease: Yes (HYPO.) - Surgical History Abdominal Surgery: No Appendectomy: Yes Cardiac Surgery: Yes (BYPASS-triple 14 years ago, AVR bioprosthetic 04/23, Pmarker&defib) Cholecystectomy: Yes Lung Surgery: No Neurologic Surgery: No Orthopedic Surgery: Yes (TKR right) - Immunization History Immunization Up to Date: Yes - Suicide/Smoking/Psychosocial Hx Smoking Status: No Smoking History: Never smoked Have you smoked in the past 12 months: No Number of Cigarettes Smoked Daily: 0 If you are a former smoker, when did you quit?: 25 years ago Information on smoking cessation initiated: No Hx Alcohol Use: No Drug/Substance Use Hx: No Substance Use Type: None Hx Substance Use Treatment: No <DaveAlfredo - Last Filed: 01/31/17 23:35> - Past Medical History Allergies/Adverse Reactions: Allergies Allergy/AdvReac Type Severity Reaction Status Date / Time albuterol Allergy Hives Verified 01/12/17 14:59 ciprofloxacin Allergy Rash Verified 01/12/17 14:59 clindamycin Allergy Hives Verified 01/12/17 14:59 lactose [Lactose] Allergy Nausea Verified 01/12/17 14:59 levofloxacin [From Levaquin] Allergy Rash Verified 01/12/17 14:59 Penicillins Allergy Swelling Verified 01/12/17 14:59 Shellfish Allergy Difficulty Verified 01/12/17 14:59 Breathing Sulfa (Sulfonamide Allergy Rash Verified 01/12/17 14:59 Antibiotics) trimethobenzamide HCl Allergy Rash Verified 01/12/17 14:59 [From Tigan] atorvastatin calcium AdvReac Unknown "muscle Verified 01/12/17 14:59 [From Lipitor] weakness" morphine AdvReac Unknown blurred Verified 01/12/17 14:59 vision Home Medications: Ambulatory Orders Aspirin [ASA -] 81 mg PO DAILY 08/10/15 Budesonide/Formeterol Fumarate [SYMBICORT 80/4.5mcg -] 1 inh PO BID 08/10/15 Tiotropium [place] [Spiriva] 1 inh PO DAILY 08/10/15 Levothyroxine [Synthroid -] 75 mcg PO DAILY 09/16/15 Clopidogrel Bisulfate [Clopidogrel] 75 mg PO DAILY 03/18/16 Alprazolam [Xanax] 0.25 mg PO DAILY PRN #0 tablet MDD 1mg 01/26/17 Calcium Carbonate - 650 mg PO BID tablet 01/26/17 Docusate Sodium [Colace -] 100 mg PO BID cap 01/26/17 Furosemide [Lasix -] 40 mg PO BID@0600,1400 tablet 01/26/17 Guaifenesin [Robitussin -] 10 ml PO Q6H PRN #0 ml 01/26/17 Heparin - 5,000 unit SQ BID vial 01/26/17 Lidocaine 5% Patch [Lidoderm -] 1 patch TP DAILY patch 01/26/17 Lidocaine Patch Removal [Lidoderm Patch Removal] 1 each MC DAILY@2200 each Methyl Salicylate/Menthol Oint [Analgesic [place] -] 1 applic TP DAILY applic Metoprolol Tartrate [Lopressor -] 12.5 mg PO BID tablet 01/26/17 Sodium Chloride Nasal [place] [[place] Nasal [place] -] 2 spray NS DAILY PRN #0 spray 01/26/17 Review of Systems - Review of Systems Able to Perform ROS?: Yes Comments:: 01/31/17 22:01 CONSTITUTIONAL: Absent: fever, chills, diaphoresis, generalized weakness, malaise, loss of appetite HEENT: Absent: rhinorrhea, nasal congestion, throat pain, throat swelling, difficulty swallowing, mouth swelling, ear pain, eye pain, visual Changes CARDIOVASCULAR: Absent: chest pain, syncope, palpitations, irregular heart rate, lightheadedness , peripheral edema RESPIRATORY: +SOB Absent: cough, dyspnea with exertion, orthopnea, wheezing, stridor, hemoptysis GASTROINTESTINAL: Absent: abdominal pain, abdominal distension, nausea, vomiting, diarrhea, constipation, melena, hematochezia GENITOURINARY: Absent: dysuria, frequency, urgency, hesitancy, hematuria, flank pain, genital pain MUSCULOSKELETAL: + lower extremity swelling. Absent: myalgia, arthralgia, joint swelling SKIN: Absent: rash, itching, pallor HEMATOLOGIC/IMMUNOLOGIC: Absent: easy bleeding, easy bruising, lymphadenopathy, frequent infections ENDOCRINE: Absent: unexplained weight gain, unexplained weight loss, heat intolerance, cold intolerance NEUROLOGIC: Absent: headache, focal weakness or paresthesias, dizziness, unsteady gait, seizure, mental status changes, bladder or bowel incontinence PSYCHIATRIC: Absent: anxiety, depression, suicidal or homicidal ideation, hallucinations. <Maryam Fuentes - Last Filed: 01/31/17 22:36> *Physical Exam - Vital Signs Last Vital Signs Temp Pulse Resp BP Pulse Ox 97.9 F 106 H 24 93/59 95 01/31/17 21:05 01/31/17 21:05 01/31/17 21:05 01/31/17 21:05 01/31/17 21:05 - Physical Exam Comments: 01/31/17 22:01 GENERAL: Well developed, well nourished. Awake and alert. In no acute distress. HEENT: Normocephalic, atraumatic. PERRLA, EOMI. No conjunctival pallor. Sclerae are non -icteric. Moist mucous membranes. Oropharynx is clear. NECK: Supple. Full ROM. No JVD. Carotid pulses 2+ and symmetric, without bruits. No thyromegaly. No lymphadenopathy. CARDIOVASCULAR: +Tachycardic. Regular rhythm. No murmurs, rubs, or gallops. Distal pulses are 2+ and symmetric. PULMONARY: + Tachypneic. + Bilateral crackles. No wheezing, rales or rhonchi. ABDOMINAL: Soft. Non-tender. Non-distended. No rebound or guarding. No organomegaly. Normoactive bowel sounds. MUSCULOSKELETAL Normal range of motion at all joints. No bony deformities or tenderness. No CVA tenderness. EXTREMITIES: +Bilateral 2+ LE edema. No cyanosis. No clubbing. No calf tenderness. SKIN: Warm and dry. Normal capillary refill. No rashes. No jaundice. NEUROLOGICAL: Alert, awake, appropriate. Cranial nerves 2-12 intact. No deficits to light touch and temperature in face, upper extremities and lower extremities. No motor deficits in the in face, upper extremities and lower extremities. Normoreflexic in the upper and lower extremities. Normal speech. Toes are downgoing bilaterally. Gait is normal without ataxia. PSYCHIATRIC: Cooperative. Good eye contact. Appropriate mood and affect. <Maryam Fuentes - Last Filed: 01/31/17 22:36> - Vital Signs Last Vital Signs Temp Pulse Resp BP Pulse Ox 97.9 F 106 H 24 93/59 95 01/31/17 21:05 01/31/17 21:05 01/31/17 21:05 01/31/17 21:05 01/31/17 21:05 <Alfredo Nayak - Last Filed: 01/31/17 23:35> ED Treatment Course - LABORATORY CBC & Chemistry Diagram: 01/31/17 22:12 01/31/17 22:12 <Maryam Fuentes - Last Filed: 01/31/17 22:36> - LABORATORY CBC & Chemistry Diagram: 01/31/17 22:12 01/31/17 22:12 <Alfredo Nayak - Last Filed: 01/31/17 23:35> Medical Decision Making - Medical Decision Making 01/31/17 22:36 Paged Marlon/Hermelindo via phone answering service. Awaiting call back <Maryam Fuentes - Last Filed: 01/31/17 22:36> - Medical Decision Making 01/31/17 23:34 [address] legDr. Nayak: The scribe's documentation has been prepared under my direction and personally reviewed by me in its entirery. I confirm that the note above accurately reflects all work, treatment, procedures, and medical decision making performed by me. <Alfredo Nayak - Last Filed: 01/31/17 23:35> *DC/Admit/Observation/Transfer - Attestations Scribe Attestion: 01/31/17 22:02 Documentation prepared by Maryam Fuentes, acting as biomedical engineer for Alfredo Nayak DO. <Maryam Fuentes - Last Filed: 01/31/17 22:36> - Discharge Dispostion Admit: Yes <Alfredo Nayak - Last Filed: 01/31/17 23:35> Diagnosis at time of Disposition: CHF exacerbation, COPD (chronic obstructive pulmonary disease), Bilateral edema of lower extremity, Hyponatremia - Discharge Dispostion Condition at time of disposition: Stable - Referrals Referrals: Flori Bella MD [Primary Care Provider] -
[2017-01-31] MEDS ORDERED: IPRATROPIUM BR 0.02% 0.5 MG/2.5 ML VIAL.NEB. NEB ONE ×2 (21:42→21:55)
[2017-01-31] MEDS ORDERED: FUROSEMIDE 40 MG/4 ML INJECTABLE VIAL IVPUSH ONE (21:43)
[2017-01-31] MEDS ORDERED: LIDOCAINE PATCH REMOVAL MC SCH (22:00)
[2017-01-31 22:23] LABS: MCH 25.9 pg (25.7-33.7); MCHC 32.8 g/dl (32.0-36.0); MEAN CELL VOLUME 78.8 fl (80-96); MEAN PLT VOLUME 8.1 fl (7.5-11.1); PLATELET COUNT 523 K/MM3 (134-434); RDW 16.2 % (11.6-15.6); WHITE BLOOD COUNT 25.4 K/mm3 (4.0-10.0)
[2017-01-31] MEDS ORDERED: FUROSEMIDE 40 MG/4 ML INJECTABLE VIAL ONE (22:24)
[2017-01-31] MEDS ORDERED: LIDOCAINE 5% TOPICAL PATCH TP ONE (22:29)
[2017-01-31 22:35] LABS: INR 1.23 (0.82-1.09); PROTHROMBIN TIME (PATIENT) 13.9 SEC (9.98-11.88)
[2017-01-31] MEDS ORDERED: LIDOCAINE 5% TOPICAL PATCH ONE (22:43)
[2017-01-31 22:46] LABS: ALBUMIN 2.7 g/dl (3.4-5.0); ANION GAP 8 (8-16); BILIRUBIN,TOTAL 1.1 mg/dL (0.2-1.0); CALCIUM 9.2 mg/dL (8.5-10.1); CO2 35 mmol/L (21-32); CREATININE 1.2 mg/dL (0.55-1.02); GLUCOSE,RANDOM 96 mg/dL (74-106); MAGNESIUM 2.4 mg/dL (1.8-2.4); SGOT/AST 28 U/L (15-37); SGPT/ALT 42 U/L (12-78); TOT PROT 6.9 g/dl (6.4-8.2)
[2017-01-31 22:55] LABS: PLATELET ESTIMATE INCREASED (NORMAL)
[2017-01-31 22:56] LABS: TOTAL CELLS COUNTED 100
[2017-01-31 23:01] LABS: ALK PHOS 201 U/L (45-117); CPK 23 IU/L (26-192); TROPONIN I 0.02 ng/ml (0.00-0.05)
[2017-01-31] MEDS ORDERED: ALPRAZolam 0.25 MG TABLET PO PRN (23:07)
[2017-01-31] MEDS ORDERED: VANCOMYCIN 1,000 MG in DEXTROSE 5%-WATER - 250 ML IVPB ONE (23:10)
[2017-01-31] MEDS ORDERED: VANCOMYCIN 1 GRAM (PRE-DOCKED) 250 ML IVPB ONE (23:29)
[2017-01-31 23:59] LABS: URINE APPEARANCE CLOUDY; URINE BILIRUBIN NEGATIVE (NEGATIVE); URINE BLOOD NEGATIVE (NEGATIVE); URINE GLUCOSE (UA) NEGATIVE (NEGATIVE); URINE KETONE NEGATIVE (NEGATIVE); URINE NITRITE NEGATIVE (NEGATIVE); URINE PROTEIN NEGATIVE (NEGATIVE); URINE UROBILINOGEN 4.0 E.U/dl mg/dL (0.2-1.0)
[2017-02-01 00:06] LABS: URINE COLOR YELLOW
[2017-02-01] MEDS ORDERED: IPRATROPIUM BR 0.02% 0.5 MG/2.5 ML VIAL.NEB. NEB ONE (02:40)
[2017-02-01 06:49] LABS: BASOPHIL 0.2 % (0-2.0); MCH 25.6 pg (25.7-33.7); MCHC 32.4 g/dl (32.0-36.0); MEAN PLT VOLUME 7.9 fl (7.5-11.1); NEUTROPHILS 91.6 % (42.8-82.8); PLATELET COUNT 518 K/MM3 (134-434); RDW 16.3 % (11.6-15.6); WHITE BLOOD COUNT 24.6 K/mm3 (4.0-10.0)
[2017-02-01 07:18] LABS: ALBUMIN 2.8 g/dl (3.4-5.0); ANION GAP 10 (8-16); BILIRUBIN,TOTAL 1.1 mg/dL (0.2-1.0); CALCIUM 9.1 mg/dL (8.5-10.1); CO2 35 mmol/L (21-32); CREATININE 1.2 mg/dL (0.55-1.02); GLUCOSE,RANDOM 98 mg/dL (74-106); SGOT/AST 27 U/L (15-37); SGPT/ALT 42 U/L (12-78); TOT PROT 6.9 g/dl (6.4-8.2)
[2017-02-01 07:20] LABS: TROPONIN I 0.02 ng/ml (0.00-0.05)
[2017-02-01 07:26] LABS: ALK PHOS 204 U/L (45-117); THYROID STIMULATING HORMONE 0.36 uIU/ml (0.358-3.74)
[2017-02-01] MEDS ORDERED: LEVOTHYROXINE NA 25 MCG TABLET (FP) ONE (08:17)
[2017-02-01] MEDS: LEVOTHYROXINE NA 75 MCG TABLET (FP) PO SCH (08:18)
--- NOTE | 2017-02-01 08:23 | CONSULT ---
Consultation: REQUESTING PROVIDER: CONSULT REQUEST: We have been asked to medically evaluate this patient for ( specify). HISTORY OF PRESENT ILLNESS: The patient is a 81 year old female resident from [facility], with a significant past medical history of Asthma, CHF, COPD (on 3L O2), HTN, HLD, CAD (s/p CABG 14 yrs ago), Hypothyroidism, recurrent UTIs who presents to the emergency department with SOB today. Patient was recently admitted for UTI on January 12 2017 and discharged on January 26 2017 to [facility]. Patient returns to the ED for worsening SOB, cough and worsening LE edema. Patient denies chest pain, headache or dizziness. She denies fever, chills, abdominal pain, nausea, vomit, diarrhea or constipation. She denies dysuria, frequency, urgency or hematuria. Patient denies recent travel. REVIEW OF SYSTEMS: CONSTITUTIONAL: Absent: fever, chills, diaphoresis, generalized weakness, malaise, loss of appetite, weight change HEENT: Absent: rhinorrhea, nasal congestion, throat pain, throat swelling, difficulty swallowing, mouth swelling, ear pain, eye pain, visual changes CARDIOVASCULAR: Absent: chest pain, syncope, palpitations, irregular heart rate, lightheadedness , peripheral edema RESPIRATORY: Absent: cough, shortness of breath, dyspnea with exertion, orthopnea, wheezing, stridor, hemoptysis GASTROINTESTINAL: Absent: abdominal pain, abdominal distension, nausea, vomiting, diarrhea, constipation, melena, hematochezia GENITOURINARY: Absent: dysuria, frequency, urgency, hesitancy, hematuria, flank pain, genital pain MUSCULOSKELETAL: Absent: myalgia, arthralgia, joint swelling, back pain, neck pain SKIN: Absent: rash, itching, pallor HEMATOLOGIC/IMMUNOLOGIC: Absent: easy bleeding, easy bruising, lymphadenopathy, frequent infections ENDOCRINE: Absent: unexplained weight gain, unexplained weight loss, heat intolerance, cold intolerance NEUROLOGIC: Absent: headache, focal weakness or paresthesias, dizziness, unsteady gait, seizure, mental status changes, bladder or bowel incontinence PSYCHIATRIC: Absent: anxiety, depression, suicidal or homicidal ideation, hallucinations. PHYSICAL EXAMINATION Vital Signs - 24 hr 02/01/17 07:04 Pulse Rate [ 83 Right Apical] Respiratory 18 Rate Blood Pressure 103/53 [Right Arm] O2 Sat by Pulse 98 Oximetry (%) GENERAL: Awake, alert, and fully oriented, in mild distress. HEAD: Normal with no signs of trauma. EYES: sclera anicteric, conjunctiva clear. No lid lag. EARS, NOSE, THROAT: Moist mucous membranes. LUNGS: diminished breath sound. No wheezes, and no crackles. No accessory muscle use. HEART: Irregular rate and rhythm, normal S1 and S2 without murmur, rub or gallop. ABDOMEN: Obese, soft, nontender, not distended, normoactive bowel sounds, no guarding LOWER EXTREMITIES: warm, well-perfused. No calf tenderness. +2 peripheral edema. NEUROLOGICAL: good mentation SKIN: Warm, dry, no rashes or lesions noted. Laboratory Results - last 24 hr 01/31/17 02/01/17 02/01/17 23:47 05:55 05:55 WBC 24.6 H RBC 4.47 Hgb 11.4 Hct 35.3 MCV 79.0 L MCH 25.6 L MCHC 32.4 RDW 16.3 H Plt Count 518 H MPV 7.9 Neutrophils % 91.6 H Lymphocytes % 2.1 L D Monocytes % 6.1 Eosinophils % 0.0 D Basophils % 0.2 Sodium 124 L* Potassium 4.8 Chloride 79 L Carbon Dioxide 35 H Anion Gap 10 BUN 65 H Creatinine 1.2 H Creat Clearance w eGFR 42.90 Random Glucose 98 Calcium 9.1 Total Bilirubin 1.1 H AST 27 ALT 42 Alkaline Phosphatase 204 H Creatine Kinase Troponin I Total Protein 6.9 Albumin 2.8 L TSH 0.36 D Free T4 Urine Color Yellow Urine Appearance Cloudy Urine pH 5.0 Urine Protein Negative Urine Glucose (UA) Negative Urine Ketones Negative Urine Blood Negative Urine Nitrite Negative Urine Bilirubin Negative Urine Urobilinogen 4.0 e.u/dl H 02/01/17 02/01/17 05:55 05:55 WBC RBC Hgb Hct MCV MCH MCHC RDW Plt Count MPV Neutrophils % Lymphocytes % Monocytes % Eosinophils % Basophils % Sodium Potassium Chloride Carbon Dioxide Anion Gap BUN Creatinine Creat Clearance w eGFR Random Glucose Calcium Total Bilirubin AST ALT Alkaline Phosphatase Creatine Kinase 28 Troponin I 0.02 Total Protein Albumin TSH Free T4 1.47 H D Urine Color Urine Appearance Urine pH Urine Protein Urine Glucose (UA) Urine Ketones Urine Blood Urine Nitrite Urine Bilirubin Urine Urobilinogen Active Medications Generic Name Dose Route Start Last Admin Trade Name Freq PRN Reason Stop Dose Admin Acetaminophen 650 mg 01/31/17 23:13 Tylenol - PO Q4H PRN FEVER Alprazolam 0.25 mg 01/31/17 23:07 Xanax - PO DAILY PRN ANXIETY Aspirin 81 mg 02/01/17 10:00 Asa - PO DAILY [facility] Budesonide/Formoterol Fumarate 1 puff 02/01/17 10:00 Symbicort 80/4.5mcg - IH BID [facility] Clopidogrel Bisulfate 75 mg 02/01/17 10:00 Plavix - PO DAILY [facility] Docusate Sodium 100 mg 02/01/17 10:00 Colace - PO BID [facility] Furosemide 40 mg 02/01/17 10:00 Lasix Injection - IVPUSH DAILY [facility] Heparin Sodium (Porcine) 5,000 unit 02/01/17 10:00 Heparin - SQ BID [facility] Levothyroxine Sodium 75 mcg 02/01/17 07:00 02/01/17 08:18 Synthroid - PO 75 mcg DAILY@0700 [facility] Administration Lidocaine 1 patch 02/01/17 10:00 Lidoderm Patch - TP DAILY [facility] Metoprolol Tartrate 12.5 mg 02/01/17 10:00 Lopressor - PO BID [facility] Miscellaneous 1 each 02/01/17 22:00 Lidoderm Patch Removal MC DAILY@2200 [facility] Tiotropium [place] 1 puff 02/01/17 10:00 Spiriva - IH DAILY [facility] CBC, BMP 02/01/17 05:55 02/01/17 05:55 Urine Test Results Urine Color Yellow 01/31/17 23:47 Urine Appearance Cloudy 01/31/17 23:47 Urine pH 5.0 (5.0-8.0) 01/31/17 23:47 Ur Specific [place] 1.010 (1.005-1.025) 01/31/17 23:47 Urine Protein Negative (NEGATIVE) 01/31/17 23:47 Urine Glucose (UA) Negative (NEGATIVE) 01/31/17 23:47 Urine Ketones Negative (NEGATIVE) 01/31/17 23:47 Urine Blood Negative (NEGATIVE) 01/31/17 23:47 Urine Nitrite Negative (NEGATIVE) 01/31/17 23:47 Urine Bilirubin Negative (NEGATIVE) 01/31/17 23:47 Ur Leukocyte Esterase 2+ (NEGATIVE) H 01/31/17 23:47 Urine RBC 0-3 /hpf (0-3) 01/31/17 23:47 Urine WBC 10-15 (3-5) 01/31/17 23:47 Ur Epithelial Cells Few /HPF 01/31/17 23:47 Urine Bacteria Moderate /hpf (NEGATIVE) 01/31/17 23:47 ASSESSMENT/PLAN: The patient is a 81 year old female resident from [facility], with a significant past medical history of Asthma, CHF, COPD (on 3L O2), HTN, HLD, CAD (s/p CABG 14 yrs ago), Hypothyroidism, recurrent UTIs who presents to the emergency department with SOB today. Patient was recently admitted for UTI on January 12 2017 and discharged on January 26 2017 to [facility]. Patient returns to the ED for worsening SOB, cough and worsening LE edema.was admitted for further evaluation #sepsis WBC 24.6, tachycardic, tachypnech, with suspected source of infection multi drug allergy vanco 1g was given in ED. Vanco tough random , will consider another dose tomorrow Aztreonam 1.0 gm Q8hr F/U blood culture, urine culture FEN: Dispo: We will continue to follow the patient. Thank you for this consultative opportunity. Problem List - Problems (1) CHF exacerbation Code(s): I50.9 - HEART FAILURE, UNSPECIFIED (2) Hypertension Code(s): I10 - ESSENTIAL (PRIMARY) HYPERTENSION (3) Hyperlipidemia Code(s): E78.5 - HYPERLIPIDEMIA, UNSPECIFIED (4) Hypothyroidism (acquired) Code(s): E03.9 - HYPOTHYROIDISM, UNSPECIFIED (5) COPD (chronic obstructive pulmonary disease) Code(s): J44.9 - CHRONIC OBSTRUCTIVE PULMONARY DISEASE, UNSPECIFIED (6) Asthma Code(s): J45.909 - UNSPECIFIED ASTHMA, UNCOMPLICATED (7) Bilateral edema of lower extremity Code(s): R60.0 - LOCALIZED EDEMA (8) Hyponatremia Code(s): E87.1 - HYPO-OSMOLALITY AND HYPONATREMIA (9) Sepsis Code(s): A41.9 - SEPSIS, UNSPECIFIED ORGANISM (10) Acute on chronic systolic CHF (congestive heart failure) Code(s): I50.23 - ACUTE ON CHRONIC SYSTOLIC (CONGESTIVE) HEART FAILURE Visit type - Emergency Visit Emergency Visit: Yes ED Registration Date: 01/31/17 Care time: The patient presented to the Emergency Department on the above date and was hospitalized for further evaluation of their emergent condition. - New Patient This patient is new to me today: Yes Date on this admission: 02/01/17 - Critical Care Critical Care patient: No
--- NOTE | 2017-02-01 09:03 | PN ---
Progress Note, Physician Chief Complaint: ID Full note dictated - Current Medication List Current Medications: Active Medications Acetaminophen (Tylenol -) 650 mg PO Q4H PRN PRN Reason: FEVER Alprazolam (Xanax -) 0.25 mg PO DAILY PRN PRN Reason: ANXIETY Aspirin (Asa -) 81 mg PO DAILY [facility] Budesonide/Formoterol Fumarate (Symbicort 80/4.5mcg -) 1 puff IH BID [facility] Clopidogrel Bisulfate (Plavix -) 75 mg PO DAILY [facility] Docusate Sodium (Colace -) 100 mg PO BID [facility] Furosemide (Lasix Injection -) 40 mg IVPUSH DAILY [facility] Heparin Sodium (Porcine) (Heparin -) 5,000 unit SQ BID [facility] Levothyroxine Sodium (Synthroid -) 75 mcg PO DAILY@0700 [facility] Last Admin: 02/01/17 08:18 Dose: 75 mcg Lidocaine (Lidoderm Patch -) 1 patch TP DAILY [facility] Metoprolol Tartrate (Lopressor -) 12.5 mg PO BID [facility] Miscellaneous (Lidoderm Patch Removal) 1 each MC DAILY@2200 [facility] Tiotropium [place] (Spiriva -) 1 puff IH DAILY [facility] - Objective Vital Signs: Vital Signs Temperature 97.9 F 01/31/17 21:05 Pulse Rate 83 02/01/17 07:04 Respiratory Rate 18 02/01/17 07:04 Blood Pressure 103/53 02/01/17 07:04 O2 Sat by Pulse Oximetry (%) 98 02/01/17 07:04 Constitutional: Yes: Mild Distress Cardiovascular: Yes: S1, S2 Respiratory: Yes: WNL, Regular, CTA Bilaterally, Diminished Gastrointestinal: Yes: Soft. No: Tenderness, Epigastrium Edema: Yes Labs: CBC, BMP 02/01/17 05:55 02/01/17 05:55 INR, PTT INR 1.23 (0.82-1.09) H 01/31/17 22:12 Problem List - Problems (1) CHF exacerbation Code(s): I50.9 - HEART FAILURE, UNSPECIFIED (2) Sepsis Code(s): A41.9 - SEPSIS, UNSPECIFIED ORGANISM (3) Aortic valve replaced Code(s): Z95.2 - PRESENCE OF PROSTHETIC HEART VALVE Assessment/Plan Laboratory Tests 01/31/17 02/01/17 02/01/17 23:47 05:55 05:55 WBC 24.6 H Hgb 11.4 Hct 35.3 Plt Count 518 H Neutrophils % 91.6 H Creat Clearance w eGFR 42.90 Total Bilirubin 1.1 H AST 27 ALT 42 Alkaline Phosphatase 204 H Ur Leukocyte Esterase Pending Assessment Recent discharge Now SOB with leukocytosis must assume sepsis source ?? Plan Multiple drug allergies Treat Vanco and Aztreonam for now Patricia VILLAR
--- NOTE | 2017-02-01 09:29 | HP ---
Admitting History and Physical - Primary Care Physician PCP: Flori Bella - Admission Chief Complaint: SOB History of Present Illness: ER HISTORY - History of Present Illness Initial Comments: 01/31/17 22:01 The patient is a 81 year old female resident from [facility], with a significant past medical history of Asthma, CHF, COPD (on 3L O2), HTN, HLD, CAD (s/p CABG 14 yrs ago), Hypothyroidism, recurrent UTIs who presents to the emergency department with SOB today. Patient was recently admitted for UTI on January 12 2017 and discharged on January 26 2017 to [facility]. Patient returns to the ED for worsening SOB, cough and worsening LE edema. Patient denies chest pain, headache or dizziness. She denies fever, chills, abdominal pain, nausea, vomit, diarrhea or constipation. She denies dysuria, frequency, urgency or hematuria. Patient denies recent travel. Pt examined in ER Spoke with Dr Bella-pt had recent admission here for CHF decompensation , COPD. Was discharged to [facility] for STR on PO Lasix-- apparently Lasic was discontinued in [place]. She has been having worsening SOB, cough- productive, leg swelling for pain few days. History Source: Patient Limitations to Obtaining History: No Limitations - Past Medical History Cardiovascular: Yes: AFIB, Aortic Stenosis (s/p AVR), CAD, CHF (Chronic combined systolic/diastolic HF), HTN, Hyperlipdemia, Murmur, Other (aortic valve replacement) Pulmonary: Yes: COPD, Other (paralyzed diaghragm) Gastrointestinal: Yes: Diverticulosis. No: GI Bleed, Inflamatory Bowel Disease , Pancreatitis, Peptic Ulcer Disease, Ulcerative Colitis Hepatobiliary: Yes: Cholecystitis. No: Cirrhosis, Hepatitis A, Hepatitis B, Hepatitis C Renal/: Yes: UTI Heme/Onc: No: Bleeding Disorder Psych: Yes: Anxiety, Depression, Panic Musculoskeletal: Yes: Chronic low back pain Endocrine: Yes: Hypothyroidism - Past Surgical History Past Surgical History: Yes: Appendectomy, CABG, Cholecystectomy, , Hysterectomy, Valve Replacement (AVR) - Smoking History Smoking history: Never smoked Have you smoked in the past 12 months: No Aproximately how many cigarettes per day: 0 If you are a former smoker, when did you quit?: 25 years ago - Alcohol/Substance Use Hx Alcohol Use: No History of Substance Use: reports: None - Social History ADL: Independent History of Recent Travel: No Home Medications - Allergies Allergies/Adverse Reactions: Allergies Allergy/AdvReac Type Severity Reaction Status Date / Time albuterol Allergy Hives Verified 01/12/17 14:59 ciprofloxacin Allergy Rash Verified 01/12/17 14:59 clindamycin Allergy Hives Verified 01/12/17 14:59 lactose [Lactose] Allergy Nausea Verified 01/12/17 14:59 levofloxacin [From Levaquin] Allergy Rash Verified 01/12/17 14:59 Penicillins Allergy Swelling Verified 01/12/17 14:59 Shellfish Allergy Difficulty Verified 01/12/17 14:59 Breathing Sulfa (Sulfonamide Allergy Rash Verified 01/12/17 14:59 Antibiotics) trimethobenzamide HCl Allergy Rash Verified 01/12/17 14:59 [From Tigan] atorvastatin calcium AdvReac Unknown "muscle Verified 01/12/17 14:59 [From Lipitor] weakness" morphine AdvReac Unknown blurred Verified 01/12/17 14:59 vision - Home Medications Home Medications: Ambulatory Orders Aspirin [ASA -] 81 mg PO DAILY 08/10/15 Budesonide/Formeterol Fumarate [SYMBICORT 80/4.5mcg -] 1 inh PO BID 08/10/15 Tiotropium [place] [Spiriva] 1 inh PO DAILY 08/10/15 Levothyroxine [Synthroid -] 75 mcg PO DAILY 09/16/15 Clopidogrel Bisulfate [Clopidogrel] 75 mg PO DAILY 03/18/16 Alprazolam [Xanax] 0.25 mg PO DAILY PRN #0 tablet MDD 1mg 01/26/17 Calcium Carbonate - 650 mg PO BID tablet 01/26/17 Docusate Sodium [Colace -] 100 mg PO BID cap 01/26/17 Furosemide [Lasix -] 40 mg PO BID@0600,1400 tablet 01/26/17 Guaifenesin [Robitussin -] 10 ml PO Q6H PRN #0 ml 01/26/17 Heparin - 5,000 unit SQ BID vial 01/26/17 Lidocaine 5% Patch [Lidoderm -] 1 patch TP DAILY patch 01/26/17 Lidocaine Patch Removal [Lidoderm Patch Removal] 1 each MC DAILY@2200 each Methyl Salicylate/Menthol Oint [Analgesic [place] -] 1 applic TP DAILY applic Metoprolol Tartrate [Lopressor -] 12.5 mg PO BID tablet 01/26/17 Sodium Chloride Nasal [place] [Cochran [place] Nasal [place] -] 2 spray NS DAILY PRN #0 spray 01/26/17 Review of Systems - Review of Systems Constitutional: denies: Chills, Fever Cardiovascular: reports: Edema. denies: Chest Pain Respiratory: reports: Cough, SOB Physical Examination Vital Signs: Vital Signs Temperature 97.9 F 01/31/17 21:05 Pulse Rate 83 02/01/17 07:04 Respiratory Rate 18 02/01/17 07:04 Blood Pressure 103/53 02/01/17 07:04 O2 Sat by Pulse Oximetry (%) 98 02/01/17 07:04 Constitutional: Yes: No Distress, Calm Cardiovascular: Yes: Regular Rate and Rhythm Respiratory: Yes: Diminished, Rales, Rhonchi Gastrointestinal: Yes: Normal Bowel Sounds, Soft. No: Distention, Tenderness Edema: Yes Psychiatric: Yes: Alert Labs: CBC, BMP 02/01/17 05:55 02/01/17 05:55 Imaging - Results Chest X-ray: Image Reviewed (congestion) EKG: Image Reviewed (Paced) Problem List - Problems (1) Bilateral edema of lower extremity Code(s): R60.0 - LOCALIZED EDEMA (2) CHF exacerbation Code(s): I50.9 - HEART FAILURE, UNSPECIFIED (3) COPD (chronic obstructive pulmonary disease) Code(s): J44.9 - CHRONIC OBSTRUCTIVE PULMONARY DISEASE, UNSPECIFIED (4) Hyponatremia Code(s): E87.1 - HYPO-OSMOLALITY AND HYPONATREMIA (5) Acute on chronic systolic CHF (congestive heart failure) Code(s): I50.23 - ACUTE ON CHRONIC SYSTOLIC (CONGESTIVE) HEART FAILURE (6) Sepsis Code(s): A41.9 - SEPSIS, UNSPECIFIED ORGANISM Assessment/Plan PLAN Sepsis- -- Leucocytosis -- unknown source -- cultures drawn and are pending -- multipke drug allergies -- ID eval noted -- ON Vanco and Aztreonam CHF -- acute on chronic systolic dysfunction -- Hyponatremia due to CHF -- IV lasix BID -- monitor renal function COPD -- atrovent nebs as needed -- IV antibiotics -- O2 DVT prophylaxis-- Heparin sc
[2017-02-01 09:33] LABS: URINE LEUK ESTERASE 2+ (NEGATIVE)
[2017-02-01 09:34] LABS: URINE BACTERIA MODERATE /hpf (NEGATIVE); URINE RBC 0-3 /hpf (0-3)
[2017-02-01] MEDS: ASPIRIN 81 MG CHEWABLE TABLETS PO SCH (09:38)
[2017-02-01] MEDS: DOCUSATE SODIUM 100 MG CAPSULE (FP) PO SCH ×2 (09:39→21:36)
[2017-02-01] MEDS: HEPARIN NA (PORCINE) 5,000 UNITS/ML 1ML VIAL SQ SCH ×2 (09:39→21:36)
[2017-02-01] MEDS: LIDOCAINE 5% TOPICAL PATCH TP SCH (09:39)
[2017-02-01] MEDS: CLOPIDOGREL BISULFATE 75 MG TABLET (FP) PO SCH (09:40)
[2017-02-01] MEDS: METOPROLOL TARTRATE 25 MG TABLET (FP) PO SCH ×2 (09:40→21:37)
--- NOTE | 2017-02-01 09:40 | CON.CARD ---
Consult Consult Specialty:: Cardiology - History of Present Illness Chief Complaint: sob History of Present Illness: The patient is a 81 year old female resident from [facility], with a significant past medical history of Asthma, CHF, COPD (on 3L O2), HTN, HLD, CAD (s/p CABG 14 yrs ago), Hypothyroidism, recurrent UTIs who presents to the emergency department with SOB today. Patient was recently admitted for UTI on January 12 2017 and discharged on January 26 2017 to [facility]. Patient returns to the ED for worsening SOB, cough and worsening LE edema. Patient denies chest pain, headache or dizziness. She denies fever, chills, abdominal pain, nausea, vomit, diarrhea or constipation. She denies dysuria, frequency, urgency or hematuria. Patient denies recent travel. [facility] s/p bioprosthetic aortic valve replacement (AVR) 04/2013 at [facility] s/p coronary stents, the last 02/2016 S/P CABG 1999 s/p cholecystectomy s/p ICD 2015 s/p Rt TKR Ongoing medical problems " I have had to be resucitated on the operating table after right knee surgery and after cholecystectomy") ?OSAS anxiety/depression CAD; s/p CABG 1999 (denies hx of ID) cor. cath 04/2012: nonobstructive disease COPD/bronchial asthma DM HTN hypercholesterolemia Moderately severe systolic LV dysfunction-->ICD in 2015. overweight (once weighed 212 lbs; now 137 lbs as of 10/2016) s/p bioprosthetic AVR 04/2013 gout - History Source History Provided By: Patient, Medical Record - Past Medical History Cardio/Vascular: Yes: AFIB, Aortic Stenosis (s/p AVR), CAD, CHF (Chronic combined systolic/diastolic HF), HTN, Hyperlipdemia, Murmur, Other (aortic valve replacement) Pulmonary: Yes: COPD, Other (paralyzed diaghragm) Gastrointestinal: Yes: Diverticulosis. No: GI Bleed, Inflamatory Bowel Disease , Pancreatitis, Peptic Ulcer Disease, Ulcerative Colitis Hepatobiliary: Yes: Cholecystitis. No: Cirrhosis, Hepatitis A, Hepatitis B, Hepatitis C Renal/: Yes: UTI Psych: Yes: Anxiety, Depression, Panic Musculoskeletal: Yes: Chronic low back pain Endocrine: Yes: Hypothyroidism - Past Surgical History Past Surgical History: Yes: Appendectomy, CABG, Cholecystectomy, , Hysterectomy, Valve Replacement (AVR) - Alcohol/Substance Use Hx Alcohol Use: No History of Substance Use: reports: None - Smoking History Smoking history: Never smoked Have you smoked in the past 12 months: No Aproximately how many cigarettes per day: 0 If you are a former smoker, when did you quit?: 25 years ago - Social History Usual Living Arrangement: With Spouse ADL: Independent History of Recent Travel: No Home Medications - Allergies Allergies/Adverse Reactions: Allergies Allergy/AdvReac Type Severity Reaction Status Date / Time albuterol Allergy Hives Verified 01/12/17 14:59 ciprofloxacin Allergy Rash Verified 01/12/17 14:59 clindamycin Allergy Hives Verified 01/12/17 14:59 lactose [Lactose] Allergy Nausea Verified 01/12/17 14:59 levofloxacin [From Levaquin] Allergy Rash Verified 01/12/17 14:59 Penicillins Allergy Swelling Verified 01/12/17 14:59 Shellfish Allergy Difficulty Verified 01/12/17 14:59 Breathing Sulfa (Sulfonamide Allergy Rash Verified 01/12/17 14:59 Antibiotics) trimethobenzamide HCl Allergy Rash Verified 01/12/17 14:59 [From Tigan] atorvastatin calcium AdvReac Unknown "muscle Verified 01/12/17 14:59 [From Lipitor] weakness" morphine AdvReac Unknown blurred Verified 01/12/17 14:59 vision - Home Medications Home Medications: Ambulatory Orders Aspirin [ASA -] 81 mg PO DAILY 08/10/15 Budesonide/Formeterol Fumarate [SYMBICORT 80/4.5mcg -] 1 inh PO BID 08/10/15 Tiotropium [place] [Spiriva] 1 inh PO DAILY 08/10/15 Levothyroxine [Synthroid -] 75 mcg PO DAILY 09/16/15 Clopidogrel Bisulfate [Clopidogrel] 75 mg PO DAILY 03/18/16 Alprazolam [Xanax] 0.25 mg PO DAILY PRN #0 tablet MDD 1mg 01/26/17 Calcium Carbonate - 650 mg PO BID tablet 01/26/17 Docusate Sodium [Colace -] 100 mg PO BID cap 01/26/17 Furosemide [Lasix -] 40 mg PO BID@0600,1400 tablet 01/26/17 Guaifenesin [Robitussin -] 10 ml PO Q6H PRN #0 ml 01/26/17 Heparin - 5,000 unit SQ BID vial 01/26/17 Lidocaine 5% Patch [Lidoderm -] 1 patch TP DAILY patch 01/26/17 Lidocaine Patch Removal [Lidoderm Patch Removal] 1 each MC DAILY@2200 each Methyl Salicylate/Menthol Oint [Analgesic [place] -] 1 applic TP DAILY applic Metoprolol Tartrate [Lopressor -] 12.5 mg PO BID tablet 01/26/17 Sodium Chloride Nasal [place] [[place] Nasal [place] -] 2 spray NS DAILY PRN #0 spray 01/26/17 Review of Systems - Review of Systems Constitutional: reports: No Symptoms Eyes: reports: No Symptoms HENT: reports: No Symptoms Neck: reports: No Symptoms Cardiovascular: reports: Edema, Shortness of Breath Respiratory: reports: SOB Gastrointestinal: reports: No Symptoms Genitourinary: reports: No Symptoms Breasts: reports: No Symptoms Reported Musculoskeletal: reports: No Symptoms Integumentary: reports: No Symptoms Neurological: reports: No Symptoms Endocrine: reports: No Symptoms Hematology/Lymphatic: reports: No Symptoms Psychiatric: reports: No Symptoms Vital Signs: Vital Signs Temperature 97.9 F 01/31/17 21:05 Pulse Rate 83 02/01/17 07:04 Respiratory Rate 18 02/01/17 07:04 Blood Pressure 103/53 02/01/17 07:04 O2 Sat by Pulse Oximetry (%) 98 02/01/17 07:04 Constitutional: Yes: Well Nourished, No Distress, Calm Eyes: Yes: WNL, Conjunctiva Clear, EOM Intact HENT: Yes: WNL, Atraumatic, Normocephalic Neck: Yes: WNL, Supple, Trachea Midline Respiratory: Yes: WNL, Regular, Rales Gastrointestinal: Yes: WNL, Normal Bowel Sounds Renal/: Yes: WNL Cardiovascular: Yes: WNL, Regular Rate and Rhythm Musculoskeletal: Yes: WNL Extremities: Yes: WNL Edema: LLE: 2+, RLE: 2+ Integumentary: Yes: WNL Neurological: Yes: WNL, Alert, Oriented ...Motor Strength: WNL Psychiatric: Yes: WNL, Alert, Oriented - Other Data Labs, Other Data: CBC, BMP 02/01/17 05:55 02/01/17 05:55 INR, PTT INR 1.23 (0.82-1.09) H 01/31/17 22:12 Troponin, BNP 02/01/17 05:55 Troponin I 0.02 Troponin, BNP 02/01/17 05:55 Troponin I 0.02 Laboratory Tests 01/31/17 01/31/17 01/31/17 22:12 22:12 22:12 WBC 25.4 H D RBC 4.33 Hgb 11.2 Hct 34.1 MCV 78.8 L MCH 25.9 MCHC 32.8 RDW 16.2 H Plt Count 523 H D MPV 8.1 Total Counted 100 Neutrophils % No Result Required. Neutrophils % (Manual) 87 H Band Neuts % (Manual) 3 Lymphocytes % No Result Required. Lymphocytes % (Manual) 2 L Monocytes % Monocytes % (Manual) 8 Eosinophils % Basophils % Platelet Estimate Increased Platelet Comment No clumping noted PT with INR 13.90 H INR 1.23 H Sodium 124 L* Potassium 4.6 D Chloride 81 L Carbon Dioxide 35 H Anion Gap 8 BUN 65 H D Creatinine 1.2 H D Creat Clearance w eGFR 42.90 Random Glucose 96 Lactic Acid Calcium 9.2 Magnesium 2.4 D Total Bilirubin 1.1 H D AST 28 ALT 42 D Alkaline Phosphatase 201 H D Creatine Kinase 23 L Troponin I 0.02 B-Natriuretic Peptide 37696.86 H Total Protein 6.9 Albumin 2.7 L TSH Free T4 Urine Color Urine Appearance Urine pH Ur Specific [place] Urine Protein Urine Glucose (UA) Urine Ketones Urine Blood Urine Nitrite Urine Bilirubin Urine Urobilinogen Ur Leukocyte Esterase Urine RBC Urine WBC Ur Epithelial Cells Urine Bacteria Blood Type Antibody Screen 01/31/17 01/31/17 01/31/17 22:12 22:37 23:47 WBC RBC Hgb Hct MCV MCH MCHC RDW Plt Count MPV Total Counted Neutrophils % Neutrophils % (Manual) Band Neuts % (Manual) Lymphocytes % Lymphocytes % (Manual) Monocytes % Monocytes % (Manual) Eosinophils % Basophils % Platelet Estimate Platelet Comment PT with INR INR Sodium Potassium Chloride Carbon Dioxide Anion Gap BUN Creatinine Creat Clearance w eGFR Random Glucose Lactic Acid 1.7 Calcium Magnesium Total Bilirubin AST ALT Alkaline Phosphatase Creatine Kinase Troponin I B-Natriuretic Peptide Total Protein Albumin TSH Free T4 Urine Color Yellow Urine Appearance Cloudy Urine pH 5.0 Ur Specific [place] 1.010 Urine Protein Negative Urine Glucose (UA) Negative Urine Ketones Negative Urine Blood Negative Urine Nitrite Negative Urine Bilirubin Negative Urine Urobilinogen 4.0 e.u/dl H Ur Leukocyte Esterase 2+ H Urine RBC 0-3 Urine WBC 10-15 Ur Epithelial Cells Few Urine Bacteria Moderate Blood Type O POSITIVE Antibody Screen Negative 02/01/17 02/01/17 02/01/17 05:55 05:55 05:55 WBC 24.6 H RBC 4.47 Hgb 11.4 Hct 35.3 MCV 79.0 L MCH 25.6 L MCHC 32.4 RDW 16.3 H Plt Count 518 H MPV 7.9 Total Counted Neutrophils % 91.6 H Neutrophils % (Manual) Band Neuts % (Manual) Lymphocytes % 2.1 L D Lymphocytes % (Manual) Monocytes % 6.1 Monocytes % (Manual) Eosinophils % 0.0 D Basophils % 0.2 Platelet Estimate Platelet Comment PT with INR INR Sodium 124 L* Potassium 4.8 Chloride 79 L Carbon Dioxide 35 H Anion Gap 10 BUN 65 H Creatinine 1.2 H Creat Clearance w eGFR 42.90 Random Glucose 98 Lactic Acid Calcium 9.1 Magnesium Total Bilirubin 1.1 H AST 27 ALT 42 Alkaline Phosphatase 204 H Creatine Kinase 28 Troponin I 0.02 B-Natriuretic Peptide Total Protein 6.9 Albumin 2.8 L TSH 0.36 D Free T4 Urine Color Urine Appearance Urine pH Ur Specific [place] Urine Protein Urine Glucose (UA) Urine Ketones Urine Blood Urine Nitrite Urine Bilirubin Urine Urobilinogen Ur Leukocyte Esterase Urine RBC Urine WBC Ur Epithelial Cells Urine Bacteria Blood Type Antibody Screen 02/01/17 05:55 WBC RBC Hgb Hct MCV MCH MCHC RDW Plt Count MPV Total Counted Neutrophils % Neutrophils % (Manual) Band Neuts % (Manual) Lymphocytes % Lymphocytes % (Manual) Monocytes % Monocytes % (Manual) Eosinophils % Basophils % Platelet Estimate Platelet Comment PT with INR INR Sodium Potassium Chloride Carbon Dioxide Anion Gap BUN Creatinine Creat Clearance w eGFR Random Glucose Lactic Acid Calcium Magnesium Total Bilirubin AST ALT Alkaline Phosphatase Creatine Kinase Troponin I B-Natriuretic Peptide Total Protein Albumin TSH Free T4 1.47 H D Urine Color Urine Appearance Urine pH Ur Specific [place] Urine Protein Urine Glucose (UA) Urine Ketones Urine Blood Urine Nitrite Urine Bilirubin Urine Urobilinogen Ur Leukocyte Esterase Urine RBC Urine WBC Ur Epithelial Cells Urine Bacteria Blood Type Antibody Screen Imaging - Results Chest X-ray: Image Reviewed (chf cm) EKG: Image Reviewed (a sensed v paced) Assessment/Plan s/p bioprosthetic aortic valve replacement (AVR) 04/2013 at [facility] s/p coronary stents, the last 02/2016 S/P CABG 1999 s/p cholecystectomy s/p ICD 2015 s/p Rt TKR Ongoing medical problems " I have had to be resucitated on the operating table after right knee surgery and after cholecystectomy") ?OSAS anxiety/depression CAD; s/p CABG 1999 (denies hx of ID) cor. cath 04/2012: nonobstructive disease COPD/bronchial asthma DM HTN hypercholesterolemia Moderately severe systolic LV dysfunction-->ICD in 2016. overweight (once weighed 212 lbs; now 137 lbs as of 10/2016) s/p bioprosthetic AVR 04/2013 gout sepsis acute chf plan telemetry abx iv lasix
[2017-02-01] MEDS ORDERED: ALPRAZolam 0.25 MG TABLET ONE (09:42)
[2017-02-01] MEDS ORDERED: FUROSEMIDE 40 MG/4 ML INJECTABLE VIAL ONE (09:42)
[2017-02-01] MEDS ORDERED: FUROSEMIDE 40 MG/4 ML INJECTABLE VIAL IVPUSH SCH (10:00)
[2017-02-01] MEDS: AZTREONAM 1 GM in DEXTROSE 5%-WATER - 50 ML IVPB SCH ×2 (10:17→18:50)
--- NOTE | 2017-02-01 11:21 | CONSULT ---
Consultation: REQUESTING PROVIDER: Dr. Casarez CONSULT REQUEST: We have been asked to medically evaluate this patient for NEPHROLOGY. HISTORY OF PRESENT ILLNESS: 81 y/o F w/sig PMH of CHF, COPD (on 3L O2), asthma, HTN, HLD, CAD (s/p cabg), hypothyroidism, recurrent UTIs presents from [facility] for worsening SOB and edema of LE over the last 1 week. Pt states her breathing and ankles have been swelling over the past 1 week and she has had some nausea and decreased appetite over the last 1-2 weeks as well. Over the same time period pt has had some dizziness as well. She also c/o cough but denies any sputum production. She has also had trouble laying flat. She denies fevers, chills, vomiting, abd pain, chest pain, fevers, chills, diarrhea, urinary frequency, dysuria. Pt was recently discharged on Jan 26, 2017 for UTI from [facility]. PMH: CHF, COPD (on 3L O2), asthma, HTN, HLD, CAD (s/p cabg), hypothyroidism, recurrent UTIs Past surgical hx: CABG 14 years ago. AVR bioprosthetic on 04/23, pacemaker and defibrillator placement, R knee replacement Social hx: quit smoking 25 years ago REVIEW OF SYSTEMS: CONSTITUTIONAL: +loss of appetite Absent: fever, chills HEENT: Absent: visual changes CARDIOVASCULAR: +lightheadedeness, +peripheral edema Absent: chest pain RESPIRATORY: +cough, sob, orthopnea GASTROINTESTINAL: +nausea Absent: abdominal pain, diarrhea GENITOURINARY: Absent: dysuria, frequency NEUROLOGIC: +dizziness PHYSICAL EXAMINATION Vital Signs - 24 hr 02/01/17 07:04 Pulse Rate [ 83 Right Apical] Respiratory 18 Rate Blood Pressure 103/53 [Right Arm] O2 Sat by Pulse 98 Oximetry (%) GENERAL: Awake, alert, and fully oriented, in no acute distress. Is sitting with head of bed up as laying flat causes worsening SOB. EARS, NOSE, THROAT: Ears normal, nares patent LUNGS: B/L basilar crackles HEART: Tachycardic, normal S1 and S2 ABDOMEN: Soft, nontender, normoactive bowel sounds LOWER EXTREMITIES: 3+pitting edema b/l LE. warm, well-perfused. NEUROLOGICAL: Normal speech.Gait not observed. PSYCHIATRIC: Cooperative. Good eye contact. Appropriate mood and affect. SKIN: Warm, dry Laboratory Results - last 24 hr 01/31/17 02/01/17 02/01/17 23:47 05:55 05:55 WBC 24.6 H RBC 4.47 Hgb 11.4 Hct 35.3 MCV 79.0 L MCH 25.6 L MCHC 32.4 RDW 16.3 H Plt Count 518 H MPV 7.9 Neutrophils % 91.6 H Lymphocytes % 2.1 L D Monocytes % 6.1 Eosinophils % 0.0 D Basophils % 0.2 Sodium 124 L* Potassium 4.8 Chloride 79 L Carbon Dioxide 35 H Anion Gap 10 BUN 65 H Creatinine 1.2 H Creat Clearance w eGFR 42.90 Random Glucose 98 Calcium 9.1 Total Bilirubin 1.1 H AST 27 ALT 42 Alkaline Phosphatase 204 H Creatine Kinase Troponin I Total Protein 6.9 Albumin 2.8 L TSH 0.36 D Free T4 Urine Color Yellow Urine Appearance Cloudy Urine pH 5.0 Ur Specific [place] 1.010 Urine Protein Negative Urine Glucose (UA) Negative Urine Ketones Negative Urine Blood Negative Urine Nitrite Negative Urine Bilirubin Negative Urine Urobilinogen 4.0 e.u/dl H Ur Leukocyte Esterase 2+ H Urine RBC 0-3 Urine WBC 10-15 Ur Epithelial Cells Few Urine Bacteria Moderate 02/01/17 02/01/17 05:55 05:55 WBC RBC Hgb Hct MCV MCH MCHC RDW Plt Count MPV Neutrophils % Lymphocytes % Monocytes % Eosinophils % Basophils % Sodium Potassium Chloride Carbon Dioxide Anion Gap BUN Creatinine Creat Clearance w eGFR Random Glucose Calcium Total Bilirubin AST ALT Alkaline Phosphatase Creatine Kinase 28 Troponin I 0.02 Total Protein Albumin TSH Free T4 1.47 H D Urine Color Urine Appearance Urine pH Ur Specific [place] Urine Protein Urine Glucose (UA) Urine Ketones Urine Blood Urine Nitrite Urine Bilirubin Urine Urobilinogen Ur Leukocyte Esterase Urine RBC Urine WBC Ur Epithelial Cells Urine Bacteria CXR: image reviewed, report reviewed Active Medications Generic Name Dose Route Start Last Admin Trade Name Freq PRN Reason Stop Dose Admin Acetaminophen 650 mg 01/31/17 23:13 Tylenol - PO Q4H PRN FEVER Alprazolam 0.25 mg 01/31/17 23:07 02/01/17 09:44 Xanax - PO 0.25 mg DAILY PRN Administration ANXIETY Aspirin 81 mg 02/01/17 10:00 02/01/17 09:38 Asa - PO 81 mg DAILY MAGO Administration Budesonide/Formoterol Fumarate 1 puff 02/01/17 10:00 Symbicort 80/4.5mcg - IH BID [facility] Clopidogrel Bisulfate 75 mg 02/01/17 10:00 02/01/17 09:40 Plavix - PO 75 mg DAILY MAGO Administration Docusate Sodium 100 mg 02/01/17 10:00 02/01/17 09:39 Colace - PO 100 mg BID MAGO Administration Furosemide 40 mg 02/01/17 10:00 02/01/17 09:44 Lasix Injection - IVPUSH 40 mg DAILY MAGO Administration Heparin Sodium (Porcine) 5,000 unit 02/01/17 10:00 02/01/17 09:39 Heparin - SQ 5,000 unit BID [facility] Administration Aztreonam 1 gm/ Dextrose 50 mls @ 100 mls/hr 02/01/17 10:00 02/01/17 10:17 IVPB 100 mls/hr Q8H-IV MAGO Administration Protocol Levothyroxine Sodium 75 mcg 02/01/17 07:00 02/01/17 08:18 Synthroid - PO 75 mcg DAILY@0700 [facility] Administration Lidocaine 1 patch 02/01/17 10:00 02/01/17 09:39 Lidoderm Patch - TP 1 patch DAILY [facility] Administration Metoprolol Tartrate 12.5 mg 02/01/17 10:00 02/01/17 09:40 Lopressor - PO 12.5 mg BID MAGO Administration Miscellaneous 1 each 02/01/17 22:00 Lidoderm Patch Removal MC DAILY@2200 [facility] Tiotropium [place] 1 puff 02/01/17 10:00 Spiriva - IH DAILY [facility] ASSESSMENT/PLAN: 81 y/o F w/sig PMH of CHF, COPD (on 3L O2), asthma, HTN, HLD, CAD (s/p cabg), hypothyroidism, recurrent UTIs presents from [facility] for worsening SOB and edema of LE over the last 1 week. -Sepsis secondary to possible possible pna vs UTI -CXR noted -ID on board, c/w abx as per ID recs -f/u UCx, BCx. UA with 2+ LE and 10-15 WBC -Hyponatremia and BETTIE secondary to CHF -IV lasix 40mg x1 and c/w IV lasix 40 mg bid; BNP elevated -monitor sodium and Cr -ordered: Urine electrolytes, urea, osms to calculate FeNa and FeUr -f/u UCx -CAD s/p CABG and AVR -c/w asa, plavix, lopressor -Hypothyroidism -c/w synthroid -Hx of COPD and asthma -c/w spiriva Dispo: We will continue to follow the patient. Thank you for this consultative opportunity. Visit type - Emergency Visit Emergency Visit: Yes ED Registration Date: 01/31/17 Care time: The patient presented to the Emergency Department on the above date and was hospitalized for further evaluation of their emergent condition. - New Patient This patient is new to me today: Yes Date on this admission: 02/01/17 - Critical Care Critical Care patient: No
[2017-02-01] MEDS: BUDESONIDE/FORMETEROL FUMARATE 80/4.5 mcg INHALER IH SCH ×2 (11:38→21:37)
[2017-02-01] MEDS: TIOTROPIUM BROMIDE 18 MCG/INH (DEVICE W/ 5 CAPSULES) IH SCH (11:38)
--- NOTE | 2017-02-01 12:50 | EKG ---
Test Reason : Blood Pressure : / mmHG Vent. Rate : 112 BPM Atrial Rate : 112 BPM P-R Int : 140 ms QRS Dur : 122 ms QT Int : 348 ms P-R-T Axes : 064 -39 094 degrees QTc Int : 475 ms POOR DATA QUALITY, INTERPRETATION MAY BE ADVERSELY AFFECTED Atrial-sensed ventricular-paced rhythm WITH OCCASIONAL atrial-paced complexes AND WITH OCCASIONAL PREMATURE VENTRICULAR COMPLEXES ABNORMAL ECG WHEN COMPARED WITH ECG OF 25-JAN-2017 09:05, NO SIGNIFICANT CHANGE WAS FOUND Confirmed by DICKSON GAY MD ([id number]) on 02/01/2017 12:50:21 PM Referred By: Confirmed By:DICKSON GAY MD
--- NOTE | 2017-02-01 12:53 | PN ---
Teaching Attending Note Name of Resident: Jersey Patel (Nephrology) ATTENDING PHYSICIAN STATEMENT I saw and evaluated the patient. I reviewed the resident's note and discussed the case with the resident. I agree with the resident's findings and plan as documented. Nephrology Pt is an 81 year old female with pmhx of CHF, HTN, UTI, CAD, and hypothyroidism who presents with shortness of breath and lower extremity edema. Pt was recently discharged to [facility] for rehab. It is not clear why she was not getting lasix there. She complains of cough and lower ext edema. PMHx htn chf uti cad azotemia pshx ppm allergies albuterol, cipro, clinda, lactose, levofloxacin Current Medications Generic Name Dose Route Start Last Admin Trade Name Freq PRN Reason Stop Dose Admin Acetaminophen 650 mg 01/31/17 23:13 Tylenol - PO Q4H PRN FEVER Alprazolam 0.25 mg 01/31/17 23:07 02/01/17 09:44 Xanax - PO 0.25 mg DAILY PRN Administration ANXIETY Aspirin 81 mg 02/01/17 10:00 02/01/17 09:38 Asa - PO 81 mg DAILY MAGO Administration Budesonide/Formoterol Fumarate 1 puff 02/01/17 10:00 02/01/17 11:38 Symbicort 80/4.5mcg - IH 1 inhaler BID MAGO Administration Clopidogrel Bisulfate 75 mg 02/01/17 10:00 02/01/17 09:40 Plavix - PO 75 mg DAILY MAGO Administration Docusate Sodium 100 mg 02/01/17 10:00 02/01/17 09:39 Colace - PO 100 mg BID MAGO Administration Furosemide 40 mg 02/01/17 18:00 Lasix Injection - IVPUSH BID@0600,1800 MAGO Heparin Sodium (Porcine) 5,000 unit 02/01/17 10:00 02/01/17 09:39 Heparin - SQ 5,000 unit BID MAGO Administration Aztreonam 1 gm/ Dextrose 50 mls @ 100 mls/hr 02/01/17 10:00 02/01/17 10:17 IVPB 100 mls/hr Q8H-IV MAGO Administration Protocol Levothyroxine Sodium 75 mcg 02/01/17 07:00 02/01/17 08:18 Synthroid - PO 75 mcg DAILY@0700 MAGO Administration Lidocaine 1 patch 02/01/17 10:00 02/01/17 09:39 Lidoderm Patch - TP 1 patch DAILY MAGO Administration Metoprolol Tartrate 12.5 mg 02/01/17 10:00 02/01/17 09:40 Lopressor - PO 12.5 mg BID MAGO Administration Miscellaneous 1 each 02/01/17 22:00 Lidoderm Patch Removal MC DAILY@2200 [facility] Tiotropium [place] 1 puff 02/01/17 10:00 02/01/17 11:38 Spiriva - IH 1 inhaler DAILY MAGO Administration Laboratory Tests 01/31/17 01/31/17 01/31/17 22:12 22:12 23:47 WBC 25.4 H D Sodium 124 L* Potassium 4.6 D Chloride 81 L Carbon Dioxide 35 H Anion Gap 8 BUN Creatinine 1.2 H D Ur Leukocyte Esterase 2+ H Urine RBC 0-3 Urine WBC 10-02/01/17 02/01/17 05:55 05:55 WBC 24.6 H Sodium 124 L* Potassium 4.8 Chloride 79 L Carbon Dioxide 35 H Anion Gap BUN 65 H Creatinine 1.2 H Ur Leukocyte Esterase Urine RBC Urine WBC Last Vital Signs Temp Pulse Resp BP Pulse Ox 97.9 F 110 H 20 130/76 94 L 02/01/17 12:30 02/01/17 12:30 02/01/17 12:30 02/01/17 12:30 02/01/17 12:30 cxr congestion cardio s1s2 pulm on nc, rhonchi GI soft ext edema plus 3 neuro awake and alert circ pos pulses 1. fluid overload 2. hyponatremia 3. paralyzed hemidiaphragm 4. HTN 5. valvular heart disease 6. azotemia 7. CHF 8. CAD 9. hypokalemia resolved 10. alkalosis 11. transaminitis 12. anxiety Plan - start lasix - restrict free water - follow blood and urine cultures - admit to hospital - hyponatremia likely in part from CHF - cont oxygen and monitor pulse ox - discussed with medical team - discussed with resident - will follow
[2017-02-01] MEDS: IPRATROPIUM BR 0.02% 0.5 MG/2.5 ML VIAL.NEB. NEB PRN (15:14)
[2017-02-01] MEDS: FUROSEMIDE 40 MG/4 ML INJECTABLE VIAL IVPUSH SCH (17:50)
[2017-02-01] MEDS: ACETAMINOPHEN 325 MG TABLET (FP) PO PRN (18:50)
[2017-02-01] MEDS: LIDOCAINE PATCH REMOVAL MC SCH (21:36)
[2017-02-02] MEDS: guaiFENesin 200 MG/10 ML 10 ML UNIT-DOSE CUPS PO PRN ×3 (00:10→16:59)
[2017-02-02] MEDS: AZTREONAM 1 GM in DEXTROSE 5%-WATER - 50 ML IVPB SCH ×3 (03:15→21:41)
[2017-02-02] MEDS: ACETAMINOPHEN 325 MG TABLET (FP) PO PRN ×2 (04:40→16:00)
[2017-02-02] MEDS: FUROSEMIDE 40 MG/4 ML INJECTABLE VIAL IVPUSH SCH ×2 (05:50→17:31)
[2017-02-02] MEDS: LEVOTHYROXINE NA 75 MCG TABLET (FP) PO SCH ×2 (05:50→06:13)
[2017-02-02 08:59] LABS: ALBUMIN 2.6 g/dl (3.4-5.0); ALK PHOS 183 U/L (45-117); ANION GAP 13 (8-16); CALCIUM 9.1 mg/dL (8.5-10.1); CO2 33 mmol/L (21-32); GLUCOSE,RANDOM 94 mg/dL (74-106); SGOT/AST 22 U/L (15-37); SGPT/ALT 33 U/L (12-78); TOT PROT 6.7 g/dl (6.4-8.2)
[2017-02-02] MEDS ORDERED: PT OWN MED DRAWER 7, Y5N ONE (09:21)
[2017-02-02] MEDS: METOPROLOL TARTRATE 25 MG TABLET (FP) PO SCH ×2 (09:55→21:49)
[2017-02-02] MEDS: HEPARIN NA (PORCINE) 5,000 UNITS/ML 1ML VIAL SQ SCH ×2 (09:55→21:43)
[2017-02-02] MEDS: DOCUSATE SODIUM 100 MG CAPSULE (FP) PO SCH ×2 (09:56→22:11)
[2017-02-02] MEDS: ASPIRIN 81 MG CHEWABLE TABLETS PO SCH (09:56)
[2017-02-02] MEDS: TIOTROPIUM BROMIDE 18 MCG/INH (DEVICE W/ 5 CAPSULES) IH SCH ×2 (09:57→12:15)
[2017-02-02] MEDS: CLOPIDOGREL BISULFATE 75 MG TABLET (FP) PO SCH (09:57)
[2017-02-02] MEDS: LIDOCAINE 5% TOPICAL PATCH TP SCH (09:57)
[2017-02-02] MEDS: BUDESONIDE/FORMETEROL FUMARATE 80/4.5 mcg INHALER IH SCH ×2 (09:58→21:50)
--- NOTE | 2017-02-02 10:49 | PN ---
Progress Note, Physician Chief Complaint: Pt OOB ic chair; depressed; askds "how long do I have to go on like this?". She is surprised to learn she has CHF.She has no energy, and worries tht her legs swell so easily. History of Present Illness: 01/31/17 22:01 The patient is a 81 year old female resident from [facility], with a significant past medical history of Asthma, CHF, COPD (on 3L O2), HTN, HLD, CAD (s/p CABG 14 yrs ago), Hypothyroidism, recurrent UTIs who presents to the emergency department with SOB today. Patient was recently admitted for UTI on January 12 2017 and discharged on January 26 2017 to [facility]. Patient returns to the ED for worsening SOB, cough and worsening LE edema. Patient denies chest pain, headache or dizziness. She denies fever, chills, abdominal pain, nausea, vomit, diarrhea or constipation. She denies dysuria, frequency, urgency or hematuria. Patient denies recent travel. - Current Medication List Current Medications: Active Medications Acetaminophen (Tylenol -) 650 mg PO Q4H PRN PRN Reason: FEVER Last Admin: 02/02/17 04:40 Dose: 650 mg Alprazolam (Xanax -) 0.25 mg PO DAILY PRN PRN Reason: ANXIETY Last Admin: 02/01/17 09:44 Dose: 0.25 mg Aspirin (Asa -) 81 mg PO DAILY [facility] Last Admin: 02/02/17 09:56 Dose: 81 mg Budesonide/Formoterol Fumarate (Symbicort 80/4.5mcg -) 1 puff IH BID [facility] Last Admin: 02/02/17 09:58 Dose: 1 inhaler Clopidogrel Bisulfate (Plavix -) 75 mg PO DAILY [facility] Last Admin: 02/02/17 09:57 Dose: 75 mg Docusate Sodium (Colace -) 100 mg PO BID [facility] Last Admin: 02/02/17 09:56 Dose: 100 mg Furosemide (Lasix Injection -) 40 mg IVPUSH BID@0600,1800 [facility] Last Admin: 02/02/17 05:50 Dose: 40 mg Guaifenesin (Robitussin -) 10 ml PO Q6H PRN Last Admin: 02/02/17 10:11 Dose: 10 ml Heparin Sodium (Porcine) (Heparin -) 5,000 unit SQ BID [facility] Last Admin: 02/02/17 09:55 Dose: 5,000 unit Aztreonam 1 gm/ Dextrose 50 mls @ 100 mls/hr IVPB Q8H-IV [facility] PRN Reason: Protocol Last Admin: 02/02/17 09:55 Dose: 100 mls/hr Ipratropium [place] (Atrovent 0.02% Nebulizer -) 1 amp NEB Q6H PRN PRN Reason: DYSPEPSIA Stop: 02/08/17 14:08 Last Admin: 02/01/17 15:14 Dose: 1 amp Levothyroxine Sodium (Synthroid -) 75 mcg PO DAILY@0700 [facility] Last Admin: 02/02/17 06:13 Dose: Not Given Lidocaine (Lidoderm Patch -) 1 patch TP DAILY [facility] Last Admin: 02/02/17 09:57 Dose: 1 patch Metoprolol Tartrate (Lopressor -) 12.5 mg PO BID [facility] Last Admin: 02/02/17 09:55 Dose: 12.5 mg Miscellaneous (Lidoderm Patch Removal) 1 each MC DAILY@2200 [facility] Last Admin: 02/01/17 21:36 Dose: 1 each Tiotropium [place] (Spiriva -) 1 puff IH DAILY [facility] Last Admin: 02/02/17 09:57 Dose: Not Given - Objective Vital Signs: Vital Signs Temperature 97.0 F L 02/02/17 05:26 Pulse Rate 108 H 02/02/17 05:26 Respiratory Rate 22 02/02/17 05:26 Blood Pressure 103/51 02/02/17 05:26 O2 Sat by Pulse Oximetry (%) 95 02/01/17 21:00 Constitutional: Yes: Anxious, Moderate Distress Eyes: Yes: WNL HENT: Yes: WNL Neck: Yes: WNL Cardiovascular: Yes: S1, S2 (split) Respiratory: Yes: Diminished Gastrointestinal: Yes: Soft ...Rectal Exam: Yes: Deferred Genitourinary: No: Anuria Musculoskeletal: Yes: Muscle Weakness Extremities: Yes: Cool Edema: Yes Edema: LLE: 2+, RLE: 2+ Peripheral Pulses WNL: No Peripheral Pulses: Left Doralis Pedis: 1+, Right Dorsalis Pedis: 1+ Integumentary: Yes: WNL Neurological: Yes: Alert, Oriented, Weakness Psychiatric: Yes: Other (depression; anxeity/panic) Labs: CBC, BMP 02/01/17 05:55 02/02/17 08:15 INR, PTT INR 1.23 (0.82-1.09) H 01/31/17 22:12 Problem List - Problems (1) Asthma Code(s): J45.909 - UNSPECIFIED ASTHMA, UNCOMPLICATED (2) COPD (chronic obstructive pulmonary disease) Code(s): J44.9 - CHRONIC OBSTRUCTIVE PULMONARY DISEASE, UNSPECIFIED (3) Hyponatremia Code(s): E87.1 - HYPO-OSMOLALITY AND HYPONATREMIA (4) Hypothyroidism (acquired) Code(s): E03.9 - HYPOTHYROIDISM, UNSPECIFIED (5) Acute on chronic systolic and diastolic heart failure, NYHA class 4 Assessment/Plan: On metoprolol for systolic CHF, HR control. On furosemide; increase as tolerated (guard against hyponatremia). BUN/Cr, electrolytes, dailys weight, Is and Os. Code(s): I50.43 - ACUTE ON CHRONIC COMBINED SYSTOLIC AND DIASTOLIC HRT FAIL (6) S/P aortic valve replacement with bioprosthetic valve Code(s): Z95.3 - PRESENCE OF XENOGENIC HEART VALVE (7) Anxiety and depression Assessment/Plan: for discussion with team today regarding DNR/DNI. Code(s): F41.8 - OTHER SPECIFIED ANXIETY DISORDERS
--- NOTE | 2017-02-02 10:52 | PN ---
Progress Note, Physician Chief Complaint: depressed , was telling the staff that she has had enough of everything She does not feel good, only slight improvement Coughing+ - Current Medication List Current Medications: Active Medications Acetaminophen (Tylenol -) 650 mg PO Q4H PRN PRN Reason: FEVER Last Admin: 02/02/17 04:40 Dose: 650 mg Alprazolam (Xanax -) 0.25 mg PO DAILY PRN PRN Reason: ANXIETY Last Admin: 02/01/17 09:44 Dose: 0.25 mg Aspirin (Asa -) 81 mg PO DAILY [facility] Last Admin: 02/02/17 09:56 Dose: 81 mg Budesonide/Formoterol Fumarate (Symbicort 80/4.5mcg -) 1 puff IH BID [facility] Last Admin: 02/02/17 09:58 Dose: 1 inhaler Clopidogrel Bisulfate (Plavix -) 75 mg PO DAILY [facility] Last Admin: 02/02/17 09:57 Dose: 75 mg Docusate Sodium (Colace -) 100 mg PO BID [facility] Last Admin: 02/02/17 09:56 Dose: 100 mg Furosemide (Lasix Injection -) 40 mg IVPUSH BID@0600,1800 [facility] Last Admin: 02/02/17 05:50 Dose: 40 mg Guaifenesin (Robitussin -) 10 ml PO Q6H PRN Last Admin: 02/02/17 10:11 Dose: 10 ml Heparin Sodium (Porcine) (Heparin -) 5,000 unit SQ BID [facility] Last Admin: 02/02/17 09:55 Dose: 5,000 unit Aztreonam 1 gm/ Dextrose 50 mls @ 100 mls/hr IVPB Q8H-IV [facility] PRN Reason: Protocol Last Admin: 02/02/17 09:55 Dose: 100 mls/hr Ipratropium [place] (Atrovent 0.02% Nebulizer -) 1 amp NEB Q6H PRN PRN Reason: DYSPEPSIA Stop: 02/08/17 14:08 Last Admin: 02/01/17 15:14 Dose: 1 amp Levothyroxine Sodium (Synthroid -) 75 mcg PO DAILY@0700 [facility] Last Admin: 02/02/17 06:13 Dose: Not Given Lidocaine (Lidoderm Patch -) 1 patch TP DAILY [facility] Last Admin: 02/02/17 09:57 Dose: 1 patch Metoprolol Tartrate (Lopressor -) 12.5 mg PO BID [facility] Last Admin: 02/02/17 09:55 Dose: 12.5 mg Miscellaneous (Lidoderm Patch Removal) 1 each MC DAILY@2200 [facility] Last Admin: 02/01/17 21:36 Dose: 1 each Tiotropium [place] (Spiriva -) 1 puff IH DAILY [facility] Last Admin: 02/02/17 09:57 Dose: Not Given - Objective Vital Signs: Vital Signs Temperature 97.0 F L 02/02/17 05:26 Pulse Rate 108 H 02/02/17 05:26 Respiratory Rate 22 02/02/17 05:26 Blood Pressure 103/51 02/02/17 05:26 O2 Sat by Pulse Oximetry (%) 95 02/01/17 21:00 Constitutional: Yes: Mild Distress Cardiovascular: Yes: Regular Rate and Rhythm Respiratory: Yes: Diminished, Rales, Rhonchi Gastrointestinal: Yes: Normal Bowel Sounds, Soft, Abdomen, Obese. No: Distention, Tenderness Edema: Yes Labs: CBC, BMP 02/01/17 05:55 02/02/17 08:15 INR, PTT INR 1.23 (0.82-1.09) H 01/31/17 22:12 Problem List - Problems (1) Bilateral edema of lower extremity Code(s): R60.0 - LOCALIZED EDEMA (2) CHF exacerbation Code(s): I50.9 - HEART FAILURE, UNSPECIFIED (3) COPD (chronic obstructive pulmonary disease) Code(s): J44.9 - CHRONIC OBSTRUCTIVE PULMONARY DISEASE, UNSPECIFIED (4) Hyponatremia Code(s): E87.1 - HYPO-OSMOLALITY AND HYPONATREMIA (5) Acute on chronic systolic CHF (congestive heart failure) Code(s): I50.23 - ACUTE ON CHRONIC SYSTOLIC (CONGESTIVE) HEART FAILURE (6) Sepsis Code(s): A41.9 - SEPSIS, UNSPECIFIED ORGANISM Assessment/Plan PLAN Sepsis, UTI -- Leucocytosis -- unknown source -- blood cultures negative, urine cultures noted -- multiple drug allergies -- ID eval noted -- ON Vanco and Aztreonam CHF -- acute on chronic systolic dysfunction -- Hyponatremia imroving slightly -- IV lasix BID -- monitor renal function -- pt requesting for palliative care COPD -- atrovent nebs as needed -- IV antibiotics -- O2 DVT prophylaxis-- Heparin sc
[2017-02-02] MEDS: IPRATROPIUM BR 0.02% 0.5 MG/2.5 ML VIAL.NEB. NEB PRN (12:31)
--- NOTE | 2017-02-02 13:04 | PN ---
Progress Note, Physician History of Present Illness: Pt seen and examined at bedside. She feels that her breathing is only mildly improved from yesterday. She is anxious. - Current Medication List Current Medications: Active Medications Acetaminophen (Tylenol -) 650 mg PO Q4H PRN PRN Reason: FEVER Last Admin: 02/02/17 04:40 Dose: 650 mg Alprazolam (Xanax -) 0.25 mg PO DAILY PRN PRN Reason: ANXIETY Last Admin: 02/01/17 09:44 Dose: 0.25 mg Aspirin (Asa -) 81 mg PO DAILY [facility] Last Admin: 02/02/17 09:56 Dose: 81 mg Budesonide/Formoterol Fumarate (Symbicort 80/4.5mcg -) 1 puff IH BID [facility] Last Admin: 02/02/17 09:58 Dose: 1 inhaler Clopidogrel Bisulfate (Plavix -) 75 mg PO DAILY [facility] Last Admin: 02/02/17 09:57 Dose: 75 mg Docusate Sodium (Colace -) 100 mg PO BID [facility] Last Admin: 02/02/17 09:56 Dose: 100 mg Furosemide (Lasix Injection -) 40 mg IVPUSH BID@0600,1800 [facility] Last Admin: 02/02/17 05:50 Dose: 40 mg Guaifenesin (Robitussin -) 10 ml PO Q6H PRN Last Admin: 02/02/17 10:11 Dose: 10 ml Heparin Sodium (Porcine) (Heparin -) 5,000 unit SQ BID [facility] Last Admin: 02/02/17 09:55 Dose: 5,000 unit Aztreonam 1 gm/ Dextrose 50 mls @ 100 mls/hr IVPB Q8H-IV [facility] PRN Reason: Protocol Last Admin: 02/02/17 09:55 Dose: 100 mls/hr Ipratropium [place] (Atrovent 0.02% Nebulizer -) 1 amp NEB Q6H PRN PRN Reason: DYSPEPSIA Stop: 02/08/17 14:08 Last Admin: 02/02/17 12:31 Dose: 1 amp Levothyroxine Sodium (Synthroid -) 75 mcg PO DAILY@0700 [facility] Last Admin: 02/02/17 06:13 Dose: Not Given Lidocaine (Lidoderm Patch -) 1 patch TP DAILY [facility] Last Admin: 02/02/17 09:57 Dose: 1 patch Metoprolol Tartrate (Lopressor -) 12.5 mg PO BID [facility] Last Admin: 02/02/17 09:55 Dose: 12.5 mg Miscellaneous (Lidoderm Patch Removal) 1 each MC DAILY@2200 [facility] Last Admin: 02/01/17 21:36 Dose: 1 each Tiotropium [place] (Spiriva -) 1 puff IH DAILY [facility] Last Admin: 02/02/17 09:57 Dose: Not Given - Objective Vital Signs: Vital Signs Temperature 97.0 F L 02/02/17 05:26 Pulse Rate 108 H 02/02/17 05:26 Respiratory Rate 22 02/02/17 05:26 Blood Pressure 103/51 02/02/17 05:26 O2 Sat by Pulse Oximetry (%) 95 02/01/17 21:00 Constitutional: Yes: Calm Eyes: Yes: Conjunctiva Clear HENT: Yes: Atraumatic Neck: Yes: Supple Cardiovascular: Yes: S1, S2 Respiratory: Yes: On Nasal O2 Gastrointestinal: Yes: Soft, Abdomen, Obese Genitourinary: Yes: WNL Edema: Yes Edema: LLE: 2+, RLE: 2+ Neurological: Yes: Oriented Psychiatric: Yes: Oriented Labs: CBC, BMP 02/01/17 05:55 02/02/17 08:15 INR, PTT INR 1.23 (0.82-1.09) H 01/31/17 22:12 Problem List - Problems (1) Anxiety and depression Code(s): F41.8 - OTHER SPECIFIED ANXIETY DISORDERS (2) Asthma Code(s): J45.909 - UNSPECIFIED ASTHMA, UNCOMPLICATED (3) Bilateral edema of lower extremity Code(s): R60.0 - LOCALIZED EDEMA (4) CHF exacerbation Code(s): I50.9 - HEART FAILURE, UNSPECIFIED (5) COPD (chronic obstructive pulmonary disease) Code(s): J44.9 - CHRONIC OBSTRUCTIVE PULMONARY DISEASE, UNSPECIFIED (6) Hyponatremia Code(s): E87.1 - HYPO-OSMOLALITY AND HYPONATREMIA Assessment/Plan Current Medications Generic Name Dose Route Start Last Admin Trade Name Freq PRN Reason Stop Dose Admin Acetaminophen 650 mg 01/31/17 23:13 02/02/17 04:40 Tylenol - PO 650 mg Q4H PRN Administration FEVER Alprazolam 0.25 mg 01/31/17 23:07 02/01/17 09:44 Xanax - PO 0.25 mg DAILY PRN Administration ANXIETY Aspirin 81 mg 02/01/17 10:00 02/02/17 09:56 Asa - PO 81 mg DAILY [facility] Administration Budesonide/Formoterol Fumarate 1 puff 02/01/17 10:00 02/02/17 09:58 Symbicort 80/4.5mcg - IH 1 inhaler BID [facility] Administration Clopidogrel Bisulfate 75 mg 02/01/17 10:00 02/02/17 09:57 Plavix - PO 75 mg DAILY [facility] Administration Docusate Sodium 100 mg 02/01/17 10:00 02/02/17 09:56 Colace - PO 100 mg BID [facility] Administration Furosemide 40 mg 02/01/17 18:00 02/02/17 05:50 Lasix Injection - IVPUSH 40 mg BID@0600,1800 [facility] Administration Guaifenesin 10 ml 02/01/17 23:27 02/02/17 10:11 Robitussin - PO 10 ml Q6H PRN Administration Heparin Sodium (Porcine) 5,000 unit 02/01/17 10:00 02/02/17 09:55 Heparin - SQ 5,000 unit BID [facility] Administration Aztreonam 1 gm/ Dextrose 50 mls @ 100 mls/hr 02/01/17 10:00 02/02/17 09:55 IVPB 100 mls/hr Q8H-IV [facility] Administration Protocol Ipratropium [place] 1 amp 02/01/17 14:08 02/02/17 12:31 Atrovent 0.02% Nebulizer - NEB 02/08/17 14:08 1 amp Q6H PRN Administration DYSPEPSIA Levothyroxine Sodium 75 mcg 02/01/17 07:00 02/02/17 06:13 Synthroid - PO Not Given DAILY@0700 [facility] Lidocaine 1 patch 02/01/17 10:00 02/02/17 09:57 Lidoderm Patch - TP 1 patch DAILY [facility] Administration Metoprolol Tartrate 12.5 mg 02/01/17 10:00 02/02/17 09:55 Lopressor - PO 12.5 mg BID [facility] Administration Miscellaneous 1 each 02/01/17 22:00 02/01/17 21:36 Lidoderm Patch Removal MC 1 each DAILY@2200 [facility] Administration Tiotropium [place] 1 puff 02/01/17 10:00 02/02/17 09:57 Spiriva - IH Not Given DAILY [facility] 1. fluid overload 2. hyponatremia 3. paralyzed hemidiaphragm 4. HTN 5. valvular heart disease 6. azotemia 7. CHF 8. CAD 9. hypokalemia resolved 10. alkalosis 11. transaminitis 12. anxiety 13. UTI Plan - cont with lasix - cont abx for UTI - free water restriction - will discuss with cardio - monitor wbc - hyponatremia likely in part from CHF - cont oxygen and monitor pulse ox - will follow
[2017-02-02] MEDS: oxyCODONE HCL 5 MG TABLET PO PRN (16:00)
--- NOTE | 2017-02-02 16:05 | PN ---
Progress Note, Physician Chief Complaint: ID Continues on Aztreonam ( dose Vanco) - Current Medication List Current Medications: Active Medications Acetaminophen (Tylenol -) 650 mg PO Q4H PRN PRN Reason: FEVER Last Admin: 02/02/17 04:40 Dose: 650 mg Alprazolam (Xanax -) 0.25 mg PO DAILY PRN PRN Reason: ANXIETY Last Admin: 02/01/17 09:44 Dose: 0.25 mg Aspirin (Asa -) 81 mg PO DAILY [facility] Last Admin: 02/02/17 09:56 Dose: 81 mg Budesonide/Formoterol Fumarate (Symbicort 80/4.5mcg -) 1 puff IH BID [facility] Last Admin: 02/02/17 09:58 Dose: 1 inhaler Clopidogrel Bisulfate (Plavix -) 75 mg PO DAILY [facility] Last Admin: 02/02/17 09:57 Dose: 75 mg Docusate Sodium (Colace -) 100 mg PO BID [facility] Last Admin: 02/02/17 09:56 Dose: 100 mg Furosemide (Lasix Injection -) 40 mg IVPUSH BID@0600,1800 [facility] Last Admin: 02/02/17 05:50 Dose: 40 mg Guaifenesin (Robitussin -) 10 ml PO Q6H PRN Last Admin: 02/02/17 10:11 Dose: 10 ml Heparin Sodium (Porcine) (Heparin -) 5,000 unit SQ BID [facility] Last Admin: 02/02/17 09:55 Dose: 5,000 unit Aztreonam 1 gm/ Dextrose 50 mls @ 100 mls/hr IVPB Q8H-IV [facility] PRN Reason: Protocol Last Admin: 02/02/17 09:55 Dose: 100 mls/hr Ipratropium [place] (Atrovent 0.02% Nebulizer -) 1 amp NEB Q6H PRN PRN Reason: DYSPEPSIA Stop: 02/08/17 14:08 Last Admin: 02/02/17 12:31 Dose: 1 amp Levothyroxine Sodium (Synthroid -) 75 mcg PO DAILY@0700 [facility] Last Admin: 02/02/17 06:13 Dose: Not Given Lidocaine (Lidoderm Patch -) 1 patch TP DAILY [facility] Last Admin: 02/02/17 09:57 Dose: 1 patch Metoprolol Tartrate (Lopressor -) 12.5 mg PO BID [facility] Last Admin: 02/02/17 09:55 Dose: 12.5 mg Miscellaneous (Lidoderm Patch Removal) 1 each MC DAILY@2200 [facility] Last Admin: 02/01/17 21:36 Dose: 1 each Oxycodone HCl (Roxicodone -) 5 mg PO Q4H PRN PRN Reason: PAIN Tiotropium [place] (Spiriva -) 1 puff IH DAILY [facility] Last Admin: 02/02/17 09:57 Dose: Not Given - Objective Vital Signs: Vital Signs Temperature 97.6 F 02/02/17 14:29 Pulse Rate 104 H 02/02/17 14:29 Respiratory Rate 22 02/02/17 14:29 Blood Pressure 92/55 02/02/17 14:29 O2 Sat by Pulse Oximetry (%) 94 L 02/02/17 10:00 Labs: CBC, BMP 02/01/17 05:55 02/02/17 08:15 INR, PTT INR 1.23 (0.82-1.09) H 01/31/17 22:12 Problem List - Problems (1) CHF exacerbation Code(s): I50.9 - HEART FAILURE, UNSPECIFIED (2) Sepsis Code(s): A41.9 - SEPSIS, UNSPECIFIED ORGANISM (3) Aortic valve replaced Code(s): Z95.2 - PRESENCE OF PROSTHETIC HEART VALVE Assessment/Plan Microbiology 01/31/17 23:47 Urine - Urine Clean Catch Urine Culture - Preliminary Lactose Fermenting Neg Bacilli 01/31/17 22:12 Blood - Peripheral Venous Blood Culture - Preliminary NO GROWTH OBTAINED AFTER 24 HOURS, INCUBATION TO CONTINUE FOR 4 DAYS. 01/31/17 22:12 Blood - Peripheral Venous Blood Culture - Preliminary NO GROWTH OBTAINED AFTER 24 HOURS, INCUBATION TO CONTINUE FOR 4 DAYS. Laboratory Tests 01/31/17 02/01/17 23:47 05:55 WBC 24.6 H Hgb 11.4 Plt Count 518 H Ur Leukocyte Esterase 2+ H Urine RBC 0-3 Urine WBC 10-15 Assessment Leukocytosis ? UTI Has GNB in urine c/s Plan Await final cultures Continue current bella Gomez MD
[2017-02-02] MEDS: LIDOCAINE PATCH REMOVAL MC SCH (21:43)
[2017-02-03] MEDS: AZTREONAM 1 GM in DEXTROSE 5%-WATER - 50 ML IVPB SCH ×3 (01:23→22:04)
[2017-02-03] MEDS: IPRATROPIUM BR 0.02% 0.5 MG/2.5 ML VIAL.NEB. NEB PRN (04:05)
[2017-02-03] MEDS: LEVOTHYROXINE NA 75 MCG TABLET (FP) PO SCH (06:09)
[2017-02-03] MEDS: FUROSEMIDE 40 MG/4 ML INJECTABLE VIAL IVPUSH SCH ×2 (06:09→18:33)
[2017-02-03 07:47] LABS: BASOPHIL 0.1 % (0-2.0); MCH 26.1 pg (25.7-33.7); MEAN CELL VOLUME 79.1 fl (80-96); MEAN PLT VOLUME 8.3 fl (7.5-11.1); NEUTROPHILS 92.3 % (42.8-82.8); PLATELET COUNT 545 K/MM3 (134-434); RDW 16.3 % (11.6-15.6); WHITE BLOOD COUNT 23.9 K/mm3 (4.0-10.0)
[2017-02-03 08:30] LABS: ANION GAP 13 (8-16); CALCIUM 9.2 mg/dL (8.5-10.1); CO2 34 mmol/L (21-32); CREATININE 1.3 mg/dL (0.55-1.02); GLUCOSE,RANDOM 82 mg/dL (74-106)
--- NOTE | 2017-02-03 10:05 | CON.PSL ---
Psychology Consult Consult Specialty:: Clinical Psychology Referred by:: Dr. Nitza Casarez Reason for Consultation:: Depression History Provided By: Patient Limitations to Obtaining History: No Limitations Current Medications: Active Medications Acetaminophen (Tylenol -) 650 mg PO Q4H PRN PRN Reason: FEVER Last Admin: 02/02/17 16:00 Dose: 650 mg Alprazolam (Xanax -) 0.25 mg PO DAILY PRN PRN Reason: ANXIETY Last Admin: 02/01/17 09:44 Dose: 0.25 mg Aspirin (Asa -) 81 mg PO DAILY [facility] Last Admin: 02/02/17 09:56 Dose: 81 mg Budesonide/Formoterol Fumarate (Symbicort 80/4.5mcg -) 1 puff IH BID [facility] Last Admin: 02/02/17 21:50 Dose: 1 inhaler Clopidogrel Bisulfate (Plavix -) 75 mg PO DAILY [facility] Last Admin: 02/02/17 09:57 Dose: 75 mg Docusate Sodium (Colace -) 100 mg PO BID [facility] Last Admin: 02/02/17 22:11 Dose: 100 mg Furosemide (Lasix Injection -) 40 mg IVPUSH BID@0600,1800 [facility] Last Admin: 02/03/17 06:09 Dose: 40 mg Guaifenesin (Robitussin -) 10 ml PO Q6H PRN Last Admin: 02/02/17 16:59 Dose: 10 ml Heparin Sodium (Porcine) (Heparin -) 5,000 unit SQ BID [facility] Last Admin: 02/02/17 21:43 Dose: 5,000 unit Aztreonam 1 gm/ Dextrose 50 mls @ 100 mls/hr IVPB Q8H-IV [facility] PRN Reason: Protocol Last Admin: 02/03/17 01:23 Dose: 100 mls/hr Ipratropium [place] (Atrovent 0.02% Nebulizer -) 1 amp NEB Q6H PRN PRN Reason: DYSPEPSIA Stop: 02/08/17 14:08 Last Admin: 02/03/17 04:05 Dose: 1 amp Levothyroxine Sodium (Synthroid -) 75 mcg PO DAILY@0700 [facility] Last Admin: 02/03/17 06:09 Dose: 75 mcg Lidocaine (Lidoderm Patch -) 1 patch TP DAILY [facility] Last Admin: 02/02/17 09:57 Dose: 1 patch Metoprolol Tartrate (Lopressor -) 12.5 mg PO BID [facility] Last Admin: 02/02/17 21:49 Dose: 12.5 mg Miscellaneous (Lidoderm Patch Removal) 1 each MC DAILY@2200 [facility] Last Admin: 02/02/17 21:43 Dose: 1 each Oxycodone HCl (Roxicodone -) 5 mg PO Q4H PRN PRN Reason: PAIN Last Admin: 02/02/17 16:00 Dose: 5 mg Tiotropium [place] (Spiriva -) 1 puff IH DAILY [facility] Last Admin: 02/02/17 09:57 Dose: Not Given Allergies: Allergies Allergy/AdvReac Type Severity Reaction Status Date / Time albuterol Allergy Hives Verified 01/12/17 14:59 ciprofloxacin Allergy Rash Verified 01/12/17 14:59 clindamycin Allergy Hives Verified 01/12/17 14:59 lactose [Lactose] Allergy Nausea Verified 01/12/17 14:59 levofloxacin [From Levaquin] Allergy Rash Verified 01/12/17 14:59 Penicillins Allergy Swelling Verified 01/12/17 14:59 Shellfish Allergy Difficulty Verified 01/12/17 14:59 Breathing Sulfa (Sulfonamide Allergy Rash Verified 01/12/17 14:59 Antibiotics) trimethobenzamide HCl Allergy Rash Verified 01/12/17 14:59 [From Tigan] atorvastatin calcium AdvReac Unknown "muscle Verified 01/12/17 14:59 [From Lipitor] weakness" morphine AdvReac Unknown blurred Verified 01/12/17 14:59 vision Does patient have pain?: No (She stated she had a hx of pain but no longer experiences it.) Hx Alcohol Use: No Hx Substance Use: No Hx Substance Use Treatment: No - Family History Family History: Unremarkable (She has one daughter who is able to visit her regularly. Two other daughters live a distance away.) Current Medical Exam-Psy Attention: Diminished Orientation: Time, Person, Place Immediate Term Memory: 06/10 Expressive: Delayed Receptive: Age Appropriate Comprehension of Spoken Words Hallucinations: Absent Thought Process: Intact Depression: Severe (The patient stated that she did not want CPR. She would take her life if she had the means and energy to do so.) Hopelessness: Yes Loss of Interest: Yes Anxiety Level: Severe (The patient is very anxious about her health as she experiences severe fatigue and has frequent readmissions to the hospital.) Danger to Self and Others: Yes (Suicidal ideation was present. She is not a danger to others.) Sleep: Difficulty falling asleep (She states that she has not slept for two weeks.) Appetite: Good (Although she states that her appetite is good, she indicated that she cannot eat because she lacks the energy to do so.) Serial Sevens Intact: Yes Repeats 3 words told earlier: 04/12 Support System: Child/Children Leisure activities: Watch movies/TV Problem List - Problem (1) Major depress dis, severe Code(s): F32.2 - MAJOR DEPRESSV DISORD, SINGLE EPSD, SEV W/O PSYCH FEATURES (2) Anxiety about health Code(s): F41.8 - OTHER SPECIFIED ANXIETY DISORDERS Assessment/Plan The patient is severely depressed. She feels hopeless about her future. She stated that she has CHF and does not see any purpose in continuing to live due to her poor quality of life. She was receptive to pastoral care counseling as well as psychological support while being treated in this facility. If she is discharged, continued counseling for her and her family is recommended. Thank you for the kind referral.
--- NOTE | 2017-02-03 10:35 | PN ---
Progress Note (short form) - Note Progress Note: After further consideration, it is recommended that Jennifer receive a psychotropic evaluation for her depression to be performed by a psychiatrist ( Dr. Bird).l Problem List - Problems (1) Major depress dis, severe Code(s): F32.2 - MAJOR DEPRESSV DISORD, SINGLE EPSD, SEV W/O PSYCH FEATURES (2) Anxiety about health Code(s): F41.8 - OTHER SPECIFIED ANXIETY DISORDERS
--- NOTE | 2017-02-03 11:30 | PN ---
Progress Note (short form) - Note Progress Note: patient seen and examined. chart reviewed Family at bedside Patient's mood is depressed Seen by palliative team Psychologist consult also noted and appreciated Vital Signs Temp 97.4 F L 02/03/17 06:00 Pulse 98 H 02/03/17 06:00 Resp 22 02/03/17 06:00 BP 94/48 02/03/17 06:00 Pulse Ox 93 L 02/02/17 21:00 Intake & Output 02/02/17 02/02/17 02/03/17 11:59 23:59 11:59 Intake Total 100 1000 440 Balance 100 1000 440 Weight 155 lb 9.6 oz Intake: IVPB 100 200 Oral 1000 240 Other: Voiding Method Incontinent Incontinent Incontinent # Unmeasured Voids Void 2 2 Bowel Movement No No Weight Measurement Method Standing Scale Active Medications Acetaminophen (Tylenol -) 650 mg PO Q4H PRN PRN Reason: FEVER Last Admin: 02/02/17 16:00 Dose: 650 mg Alprazolam (Xanax -) 0.25 mg PO DAILY PRN PRN Reason: ANXIETY Last Admin: 02/01/17 09:44 Dose: 0.25 mg Aspirin (Asa -) 81 mg PO DAILY [facility] Last Admin: 02/02/17 09:56 Dose: 81 mg Budesonide/Formoterol Fumarate (Symbicort 80/4.5mcg -) 1 puff IH BID [facility] Last Admin: 02/02/17 21:50 Dose: 1 inhaler Clopidogrel Bisulfate (Plavix -) 75 mg PO DAILY [facility] Last Admin: 02/02/17 09:57 Dose: 75 mg Docusate Sodium (Colace -) 100 mg PO BID [facility] Last Admin: 02/02/17 22:11 Dose: 100 mg Furosemide (Lasix Injection -) 40 mg IVPUSH BID@0600,1800 [facility] Last Admin: 02/03/17 06:09 Dose: 40 mg Guaifenesin (Robitussin -) 10 ml PO Q6H PRN Last Admin: 02/02/17 16:59 Dose: 10 ml Heparin Sodium (Porcine) (Heparin -) 5,000 unit SQ BID [facility] Last Admin: 02/02/17 21:43 Dose: 5,000 unit Aztreonam 1 gm/ Dextrose 50 mls @ 100 mls/hr IVPB Q8H-IV [facility] PRN Reason: Protocol Last Admin: 02/03/17 01:23 Dose: 100 mls/hr Ipratropium [place] (Atrovent 0.02% Nebulizer -) 1 amp NEB Q6H PRN PRN Reason: DYSPEPSIA Stop: 02/08/17 14:08 Last Admin: 02/03/17 04:05 Dose: 1 amp Levothyroxine Sodium (Synthroid -) 75 mcg PO DAILY@0700 [facility] Last Admin: 02/03/17 06:09 Dose: 75 mcg Lidocaine (Lidoderm Patch -) 1 patch TP DAILY [facility] Last Admin: 02/02/17 09:57 Dose: 1 patch Metoprolol Tartrate (Lopressor -) 12.5 mg PO BID [facility] Last Admin: 02/02/17 21:49 Dose: 12.5 mg Miscellaneous (Lidoderm Patch Removal) 1 each MC DAILY@2200 [facility] Last Admin: 02/02/17 21:43 Dose: 1 each Oxycodone HCl (Roxicodone -) 5 mg PO Q4H PRN PRN Reason: PAIN Last Admin: 02/02/17 16:00 Dose: 5 mg Tiotropium [place] (Spiriva -) 1 puff IH DAILY [facility] Last Admin: 02/02/17 09:57 Dose: Not Given CBC, BMP 02/03/17 05:18 02/03/17 05:18 Microbiology 01/31/17 23:47 Urine Culture - Final Urine - Urine Clean Catch Escherichia Coli 01/31/17 22:12 Blood Culture - Preliminary Blood - Peripheral Venous NO GROWTH OBTAINED AFTER 48 HOURS, INCUBATION TO CONTINUE FOR 3 DAYS. 01/31/17 22:12 Blood Culture - Preliminary Blood - Peripheral Venous NO GROWTH OBTAINED AFTER 48 HOURS, INCUBATION TO CONTINUE FOR 3 DAYS. Physical exam Constitutional: Yes: no Distress but looks weak Cardiovascular: Yes: Regular Rate and Rhythm Respiratory: Yes: bilateral diffuse rhonchi Gastrointestinal: Yes: Normal Bowel Sounds, Soft, Abdomen, Obese. No: Distention, Tenderness Edema: Yes neuro--alert and awake Psych--mood is depressed Problem List - Problems (1) Bilateral edema of lower extremity Code(s): R60.0 - LOCALIZED EDEMA (2) CHF exacerbation Code(s): I50.9 - HEART FAILURE, UNSPECIFIED (3) COPD (chronic obstructive pulmonary disease) Code(s): J44.9 - CHRONIC OBSTRUCTIVE PULMONARY DISEASE, UNSPECIFIED (4) Hyponatremia Code(s): E87.1 - HYPO-OSMOLALITY AND HYPONATREMIA (5) Acute on chronic systolic CHF (congestive heart failure) Code(s): I50.23 - ACUTE ON CHRONIC SYSTOLIC (CONGESTIVE) HEART FAILURE (6) Sepsis Code(s): A41.9 - SEPSIS, UNSPECIFIED ORGANISM Assessment/Plan medications reviewed continue IV Lasix monitor lites We will consult psychiatrist Pulmonary consult also requested--discussed with Dr. Mason Follow-up chest x-ray Overall condition guarded Patient is DNR/DNI Discussed with patient's family in detail. Will follow
[2017-02-03] MEDS ORDERED: ONDANSETRON 4 MG/2 ML VIAL IVPUSH PRN (11:45)
[2017-02-03] MEDS: DOCUSATE SODIUM 100 MG CAPSULE (FP) PO SCH ×2 (12:14→21:55)
[2017-02-03] MEDS: HEPARIN NA (PORCINE) 5,000 UNITS/ML 1ML VIAL SQ SCH ×2 (12:14→21:56)
[2017-02-03] MEDS: ASPIRIN 81 MG CHEWABLE TABLETS PO SCH (12:14)
[2017-02-03] MEDS: BUDESONIDE/FORMETEROL FUMARATE 80/4.5 mcg INHALER IH SCH ×2 (12:15→21:40)
[2017-02-03] MEDS: CLOPIDOGREL BISULFATE 75 MG TABLET (FP) PO SCH (12:15)
[2017-02-03] MEDS: METOPROLOL TARTRATE 25 MG TABLET (FP) PO SCH ×2 (12:15→21:55)
[2017-02-03] MEDS: LIDOCAINE 5% TOPICAL PATCH TP SCH (12:15)
[2017-02-03] MEDS: TIOTROPIUM BROMIDE 18 MCG/INH (DEVICE W/ 5 CAPSULES) IH SCH (12:15)
[2017-02-03] MEDS: oxyCODONE HCL 5 MG TABLET PO PRN (12:16)
--- NOTE | 2017-02-03 12:37 | PN ---
Progress Note (short form) - Note Progress Note: PULMONARY CONSULTATION DICTATED 02/03/17 IMP ACUTE ON CHRONIC HYPOXEMIC RESPIRATORY FAILURE DECOMPENSATED CONGESTIVE HEART FAILURE S/P ICD COPD EXACERBATION LEFT DIAPHRAGMATIC PARALYSIS ASHD S/P CABG,STENTS HYPONATREMIA ACUTE ON CHRONIC KIDNEY DISEASE DM S/P AVR JERALD DEPRESSION/ANXIETY UTI PLAN IV LASIX INHALED BRONCHODILATORS SUPPLEMENTAL O2 DAILY WTS MONITOR LYTES/NA F/U CHEST X-RAY ANTIBIOTICS PER ID DR MORRISSEY Problem List - Problems (1) Acute on chronic systolic CHF (congestive heart failure) Code(s): I50.23 - ACUTE ON CHRONIC SYSTOLIC (CONGESTIVE) HEART FAILURE (2) Anxiety about health Code(s): F41.8 - OTHER SPECIFIED ANXIETY DISORDERS (3) Anxiety and depression Code(s): F41.8 - OTHER SPECIFIED ANXIETY DISORDERS (4) Aortic valve replaced Code(s): Z95.2 - PRESENCE OF PROSTHETIC HEART VALVE (5) Asthma Code(s): J45.909 - UNSPECIFIED ASTHMA, UNCOMPLICATED (6) Bilateral edema of lower extremity Code(s): R60.0 - LOCALIZED EDEMA (7) CAD (coronary artery disease) Code(s): I25.10 - ATHSCL HEART DISEASE OF [place] CORONARY ARTERY W/O ANG PCTRS (8) CHF (congestive heart failure) Code(s): I50.9 - HEART FAILURE, UNSPECIFIED Qualifiers: Congestive heart failure type: unspecified congestive heart failure type Congestive heart failure chronicity: unspecified congestive heart failure chronicity Qualified Code(s): I50.9 - Heart failure, unspecified; I50.9 - Heart failure, unspecified; I50.9 - Heart failure, unspecified; I50.9 - Heart failure, unspecified (9) Acute on chronic respiratory failure with hypoxemia Code(s): J96.21 - ACUTE AND CHRONIC RESPIRATORY FAILURE WITH HYPOXIA (10) COPD (chronic obstructive pulmonary disease) Code(s): J44.9 - CHRONIC OBSTRUCTIVE PULMONARY DISEASE, UNSPECIFIED (11) Hyponatremia Code(s): E87.1 - HYPO-OSMOLALITY AND HYPONATREMIA (12) S/P aortic valve replacement with bioprosthetic valve Code(s): Z95.3 - PRESENCE OF XENOGENIC HEART VALVE (13) Diaphragm paralysis Code(s): J98.6 - DISORDERS OF DIAPHRAGM (14) Shortness of breath Code(s): R06.02 - SHORTNESS OF BREATH (15) UTI (urinary tract infection) Code(s): N39.0 - URINARY TRACT INFECTION, SITE NOT SPECIFIED Qualifiers: Urinary tract infection type: site unspecified Hematuria presence: without hematuria Qualified Code(s): N39.0 - Urinary tract infection, site not specified; N39.0 - Urinary tract infection, site not specified; R31.9 - Hematuria, unspecified; R31.9 - Hematuria, unspecified (16) Anxiety 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 Code(s): F41.0 - PANIC DISORDER [EPISODIC PAROXYSMAL ANXIETY] (17) Hx of CABG Code(s): Z95.1 - PRESENCE OF AORTOCORONARY BYPASS GRAFT (18) Hyperlipidemia Code(s): E78.5 - HYPERLIPIDEMIA, UNSPECIFIED (19) Hypertension Code(s): I10 - ESSENTIAL (PRIMARY) HYPERTENSION (20) ICD (implantable cardioverter-defibrillator) in place Code(s): Z95.810 - PRESENCE OF AUTOMATIC (IMPLANTABLE) CARDIAC DEFIBRILLATOR (21) Sleep apnea in adult Code(s): G47.33 - OBSTRUCTIVE SLEEP APNEA (ADULT) (PEDIATRIC)
--- NOTE | 2017-02-03 13:34 | CONS ---
DATE OF CONSULTATION: 02/03/2017 REFERRING PHYSICIAN: Lavon Mason MD The patient is an 81-year-old white female well-known to me from previous hospitalization as well as office followup. Past medical history of congestive heart failure, COPD on home O2, 3 L; hypertension, hyperlipidemia, ASHD, status post CABG 14 years ago, hypothyroidism, recurrent UTIs, recently hospitalized in [facility] secondary to CHF, was transferred to [facility] for short-term rehab care. While at the long-term, the patient started developing increasing shortness of breath, lower extremity edema , and cough productive of clear sputum. On admission, she denied any complaint of chest pain, nausea, vomiting, diaphoresis, denied any hemoptysis. Patient was admitted with the above. On admission, patient felt to be in congestive heart failure, possible underlying sepsis. She was placed on antibiotics as well as Lasix. The patient complains of shortness of breath at rest as well as with exertion. Denies any fever, chills, nausea, hemoptysis. She is a nonsmoker. There is no history of occupational exposures to chemicals or fumes. PAST MEDICAL HISTORY: Again includes ASHD, status post CABG, status post aortic valve replacement in 2013 with subsequent left diaphragmatic paralysis, status post stents, status post ICD, TKR; COPD on home O2, 3 L; hyperlipidemia, hypertension, hypothyroidism, recurrent UTIs, depression, anxiety, diabetes. REVIEW OF SYSTEMS: Positive orthopnea. Positive dyspnea. Positive cough. Positive chest congestion. No fever, no chills, no hemoptysis, no abdominal pain. Positive increased lower extremity edema. CURRENT MEDICATIONS: Include Atrovent solution, Azactam, Colace, heparin, Lasix IV push b.i.d., lidocaine patch, metoprolol, Plavix, guaifenesin, oxycodone, Symbicort, Spiriva, albuterol, levothyroxine, Xanax, . PHYSICAL EXAMINATION: General: The patient is an elderly white female, well developed, well nourished, ill or chronically ill appearing, weak, in no acute respiratory distress. Vital Signs: She is currently afebrile. Blood pressure is 94/48, respiratory rate 22, O2 saturation is 93% on 4 L. HEENT: Normocephalic, atraumatic. Neck: Supple. Heart: Regular. S1, S2. Chest: Bilateral crackles. Abdomen: Soft. Bowel sounds are positive. Extremities: Bilateral lower extremity edema 4+. LABORATORY: WBC is 23.9, hemoglobin 11, hematocrit 33.4, the platelet count of 545,000. There were 92 polys, 2 lymphs, and 5 monos. INR is 1.23. Sodium is 124, BUN 81, creatinine 1.3. Chest x-ray reveals no acute infiltrates, no effusions. There is mild pulmonary vascular congestion, elevation of the left hemidiaphragm. There is a retrocardiac opacity, left lung base. IMPRESSION: Acute on chronic hypoxemic respiratory failure secondary to: 1. Decompensated congestive heart failure. 2. Acute on chronic congestive heart failure. 3. Chronic obstructive pulmonary disease. 4. History of elevated left hemidiaphragm. 5. Status post aortic valve replacement. 6. Arteriosclerotic heart disease status post stent. 7. Status post implantable cardioverter-defibrillator. 8. Status post coronary artery bypass graft. 9. Diabetes. 10. Hyponatremia. 11. Acute on chronic renal failure. 12. Urinary tract infection. PLAN: Supplemental O2, Lasix, inhaled bronchodilators, antibiotic therapy, free water restriction, monitor serum sodium level, monitor electrolytes, obtain followup chest x-ray, antibiotics as per Infectious Disease. Will follow closely with you. DHARMESH MORRISSEY M.D. FIORDALIZA/[id number]
--- NOTE | 2017-02-03 14:25 | PN ---
Progress Note, Physician History of Present Illness: Pt seen and examined at bedside. She appears depressed. She complains of weakness. - Current Medication List Current Medications: Active Medications Acetaminophen (Tylenol -) 650 mg PO Q4H PRN PRN Reason: FEVER Last Admin: 02/02/17 16:00 Dose: 650 mg Alprazolam (Xanax -) 0.25 mg PO DAILY PRN PRN Reason: ANXIETY Last Admin: 02/01/17 09:44 Dose: 0.25 mg Aspirin (Asa -) 81 mg PO DAILY [facility] Last Admin: 02/03/17 12:14 Dose: 81 mg Budesonide/Formoterol Fumarate (Symbicort 80/4.5mcg -) 1 puff IH BID [facility] Last Admin: 02/03/17 12:15 Dose: 1 inhaler Clopidogrel Bisulfate (Plavix -) 75 mg PO DAILY [facility] Last Admin: 02/03/17 12:15 Dose: 75 mg Docusate Sodium (Colace -) 100 mg PO BID [facility] Last Admin: 02/03/17 12:14 Dose: 100 mg Furosemide (Lasix Injection -) 40 mg IVPUSH BID@0600,1800 [facility] Last Admin: 02/03/17 06:09 Dose: 40 mg Guaifenesin (Robitussin -) 10 ml PO Q6H PRN Last Admin: 02/02/17 16:59 Dose: 10 ml Heparin Sodium (Porcine) (Heparin -) 5,000 unit SQ BID [facility] Last Admin: 02/03/17 12:14 Dose: 5,000 unit Aztreonam 1 gm/ Dextrose 50 mls @ 100 mls/hr IVPB Q8H-IV [facility] PRN Reason: Protocol Last Admin: 02/03/17 12:14 Dose: 100 mls/hr Levothyroxine Sodium (Synthroid -) 75 mcg PO DAILY@0700 [facility] Last Admin: 02/03/17 06:09 Dose: 75 mcg Lidocaine (Lidoderm Patch -) 1 patch TP DAILY [facility] Last Admin: 02/03/17 12:15 Dose: 1 patch Metoprolol Tartrate (Lopressor -) 12.5 mg PO BID [facility] Last Admin: 02/03/17 12:15 Dose: 12.5 mg Miscellaneous (Lidoderm Patch Removal) 1 each MC DAILY@2200 [facility] Last Admin: 02/02/17 21:43 Dose: 1 each Ondansetron HCl (Zofran Injection) 4 mg IVPUSH Q4H PRN PRN Reason: NAUSEA AND/OR VOMITING Stop: 02/03/17 23:46 Last Admin: 02/03/17 12:16 Dose: 4 mg Oxycodone HCl (Roxicodone -) 5 mg PO Q4H PRN PRN Reason: PAIN Last Admin: 02/03/17 12:16 Dose: 2.5 mg Tiotropium [place] (Spiriva -) 1 puff IH DAILY [facility] Last Admin: 02/03/17 12:15 Dose: 1 inhaler - Objective Vital Signs: Vital Signs Temperature 97.5 F L 02/03/17 14:07 Pulse Rate 52 L 02/03/17 14:07 Respiratory Rate 22 02/03/17 14:07 Blood Pressure 85/55 02/03/17 14:07 O2 Sat by Pulse Oximetry (%) 93 L 02/02/17 21:00 Constitutional: Yes: Calm Eyes: Yes: Conjunctiva Clear HENT: Yes: Atraumatic Neck: Yes: Supple Cardiovascular: Yes: S1, S2 Respiratory: Yes: On Nasal O2 Gastrointestinal: Yes: Soft Genitourinary: Yes: WNL Musculoskeletal: Yes: Muscle Weakness Edema: Yes Edema: LLE: 2+, RLE: 2+ Neurological: Yes: Oriented Psychiatric: Yes: Other (deperessed) Labs: CBC, BMP 02/03/17 05:18 02/03/17 05:18 INR, PTT INR 1.23 (0.82-1.09) H 01/31/17 22:12 Problem List - Problems (1) Anxiety and depression Code(s): F41.8 - OTHER SPECIFIED ANXIETY DISORDERS (2) Asthma Code(s): J45.909 - UNSPECIFIED ASTHMA, UNCOMPLICATED (3) Bilateral edema of lower extremity Code(s): R60.0 - LOCALIZED EDEMA (4) CHF exacerbation Code(s): I50.9 - HEART FAILURE, UNSPECIFIED (5) COPD (chronic obstructive pulmonary disease) Code(s): J44.9 - CHRONIC OBSTRUCTIVE PULMONARY DISEASE, UNSPECIFIED (6) Hyponatremia Code(s): E87.1 - HYPO-OSMOLALITY AND HYPONATREMIA Assessment/Plan Current Medications Generic Name Dose Route Start Last Admin Trade Name Freq PRN Reason Stop Dose Admin Acetaminophen 650 mg 01/31/17 23:13 02/02/17 16:00 Tylenol - PO 650 mg Q4H PRN Administration FEVER Alprazolam 0.25 mg 01/31/17 23:07 02/01/17 09:44 Xanax - PO 0.25 mg DAILY PRN Administration ANXIETY Aspirin 81 mg 02/01/17 10:00 02/03/17 12:14 Asa - PO 81 mg DAILY [facility] Administration Budesonide/Formoterol Fumarate 1 puff 02/01/17 10:00 02/03/17 12:15 Symbicort 80/4.5mcg - IH 1 inhaler BID [facility] Administration Clopidogrel Bisulfate 75 mg 02/01/17 10:00 02/03/17 12:15 Plavix - PO 75 mg DAILY [facility] Administration Docusate Sodium 100 mg 02/01/17 10:00 02/03/17 12:14 Colace - PO 100 mg BID [facility] Administration Furosemide 40 mg 02/01/17 18:00 02/03/17 06:09 Lasix Injection - IVPUSH 40 mg BID@0600,1800 [facility] Administration Guaifenesin 10 ml 02/01/17 23:27 02/02/17 16:59 Robitussin - PO 10 ml Q6H PRN Administration Heparin Sodium (Porcine) 5,000 unit 02/01/17 10:00 02/03/17 12:14 Heparin - SQ 5,000 unit BID [facility] Administration Aztreonam 1 gm/ Dextrose 50 mls @ 100 mls/hr 02/01/17 10:00 02/03/17 12:14 IVPB 100 mls/hr Q8H-IV [facility] Administration Protocol Levothyroxine Sodium 75 mcg 02/01/17 07:00 02/03/17 06:09 Synthroid - PO 75 mcg DAILY@0700 [facility] Administration Lidocaine 1 patch 02/01/17 10:00 02/03/17 12:15 Lidoderm Patch - TP 1 patch DAILY [facility] Administration Metoprolol Tartrate 12.5 mg 02/01/17 10:00 02/03/17 12:15 Lopressor - PO 12.5 mg BID [facility] Administration Miscellaneous 1 each 02/01/17 22:00 02/02/17 21:43 Lidoderm Patch Removal MC 1 each DAILY@2200 [facility] Administration Ondansetron HCl 4 mg 02/03/17 11:45 02/03/17 12:16 Zofran Injection IVPUSH 02/03/17 23:46 4 mg Q4H PRN Administration NAUSEA AND/OR VOMITING Oxycodone HCl 5 mg 02/02/17 15:44 02/03/17 12:16 Roxicodone - PO 2.5 mg Q4H PRN Administration PAIN Tiotropium [place] 1 puff 02/01/17 10:00 02/03/17 12:15 Spiriva - IH 1 inhaler DAILY [facility] Administration Impression: 1. fluid overload 2. hyponatremia 3. paralyzed hemidiaphragm 4. HTN 5. valvular heart disease 6. azotemia 7. CHF 8. CAD 9. hypokalemia resolved 10. alkalosis 11. transaminitis 12. anxiety 13. UTI Plan - cont lasix - cont abx - monitor sodium - will monitor sodium - pt will try medical therapy for a few more days before considering palliative care - free water restriction - will discuss with cardio - hyponatremia likely in part from CHF - cont oxygen and monitor pulse ox - will follow
[2017-02-03] MEDS ORDERED: SODIUM CHLORIDE 1 GM TABLET PO ONE (14:32)
--- NOTE | 2017-02-03 19:29 | CON.PSY ---
Psychiatry Consult Chief Complaint: Asked to see this patient, an 81 year old female with End- stage heart failure. for Depression History of Present Problem: Patient was seen . Medical records/chart reviewed Daughter at her bedside who gave collateral information. Patient states, " I want to - I'm tired of being sick!" Symptoms: reports: Depressed Mood, Decreased Energy, Appetite Disturbance, Hopelessness, Decreased Motivation - Current Medications Current Medications: Active Medications Acetaminophen (Tylenol -) 650 mg PO Q4H PRN PRN Reason: FEVER Last Admin: 02/02/17 16:00 Dose: 650 mg Alprazolam (Xanax -) 0.25 mg PO DAILY PRN PRN Reason: ANXIETY Last Admin: 02/01/17 09:44 Dose: 0.25 mg Aspirin (Asa -) 81 mg PO DAILY [facility] Last Admin: 02/03/17 12:14 Dose: 81 mg Budesonide/Formoterol Fumarate (Symbicort 80/4.5mcg -) 1 puff IH BID [facility] Last Admin: 02/03/17 12:15 Dose: 1 inhaler Clopidogrel Bisulfate (Plavix -) 75 mg PO DAILY [facility] Last Admin: 02/03/17 12:15 Dose: 75 mg Docusate Sodium (Colace -) 100 mg PO BID [facility] Last Admin: 02/03/17 12:14 Dose: 100 mg Furosemide (Lasix Injection -) 40 mg IVPUSH BID@0600,1800 [facility] Last Admin: 02/03/17 18:33 Dose: 40 mg Guaifenesin (Robitussin -) 10 ml PO Q6H PRN Last Admin: 02/02/17 16:59 Dose: 10 ml Heparin Sodium (Porcine) (Heparin -) 5,000 unit SQ BID [facility] Last Admin: 02/03/17 12:14 Dose: 5,000 unit Aztreonam 1 gm/ Dextrose 50 mls @ 100 mls/hr IVPB Q8H-IV [facility] PRN Reason: Protocol Last Admin: 02/03/17 12:14 Dose: 100 mls/hr Levothyroxine Sodium (Synthroid -) 75 mcg PO DAILY@0700 [facility] Last Admin: 02/03/17 06:09 Dose: 75 mcg Lidocaine (Lidoderm Patch -) 1 patch TP DAILY [facility] Last Admin: 02/03/17 12:15 Dose: 1 patch Metoprolol Tartrate (Lopressor -) 12.5 mg PO BID [facility] Last Admin: 02/03/17 12:15 Dose: 12.5 mg Miscellaneous (Lidoderm Patch Removal) 1 each MC DAILY@2200 [facility] Last Admin: 02/02/17 21:43 Dose: 1 each Ondansetron HCl (Zofran Injection) 4 mg IVPUSH Q4H PRN PRN Reason: NAUSEA AND/OR VOMITING Stop: 02/03/17 23:46 Last Admin: 02/03/17 12:16 Dose: 4 mg Oxycodone HCl (Roxicodone -) 5 mg PO Q4H PRN PRN Reason: PAIN Last Admin: 02/03/17 12:16 Dose: 2.5 mg Tiotropium [place] (Spiriva -) 1 puff IH DAILY [facility] Last Admin: 02/03/17 12:15 Dose: 1 inhaler - Allergies Allergies: Allergies Allergy/AdvReac Type Severity Reaction Status Date / Time albuterol Allergy Hives Verified 01/12/17 14:59 ciprofloxacin Allergy Rash Verified 01/12/17 14:59 clindamycin Allergy Hives Verified 01/12/17 14:59 lactose [Lactose] Allergy Nausea Verified 01/12/17 14:59 levofloxacin [From Levaquin] Allergy Rash Verified 01/12/17 14:59 Penicillins Allergy Swelling Verified 01/12/17 14:59 Shellfish Allergy Difficulty Verified 01/12/17 14:59 Breathing Sulfa (Sulfonamide Allergy Rash Verified 01/12/17 14:59 Antibiotics) trimethobenzamide HCl Allergy Rash Verified 01/12/17 14:59 [From Tigan] atorvastatin calcium AdvReac Unknown "muscle Verified 01/12/17 14:59 [From Lipitor] weakness" morphine AdvReac Unknown blurred Verified 01/12/17 14:59 vision
[2017-02-03] MEDS: LIDOCAINE PATCH REMOVAL MC SCH (21:56)
--- NOTE | 2017-02-03 22:59 | PN ---
Progress Note, Physician Chief Complaint: Pt OOB in chair;dyspneic on minimal exertion; depressed, says she wants to go to hospice. Her son, daughter, and several other family and friends enter room, and discuss her wishes. She says she is tired, and cannot live like this. History of Present Illness: 01/31/17 22:01 The patient is an 81 year old white female resident from [facility], with a significant past medical history of Asthma, severe systolic CHF, COPD (on 3L O2) , HTN, HLD, CAD (s/p CABG 14 yrs ago), Hypothyroidism, recurrent UTIs, anxiety/ panic/depression, who presents to the emergency department with SOB today. Patient was recently admitted for UTI on January 12 2017 and discharged on January 26 2017 to [facility]. Patient returns to the ED for worsening SOB, cough and worsening LE edema. Patient denies chest pain, headache or dizziness. She denies fever, chills, abdominal pain, nausea, vomit, diarrhea or constipation. She denies dysuria, frequency, urgency or hematuria. Patient denies recent travel. - Current Medication List Current Medications: Active Medications Acetaminophen (Tylenol -) 650 mg PO Q4H PRN PRN Reason: FEVER Last Admin: 02/02/17 16:00 Dose: 650 mg Alprazolam (Xanax -) 0.25 mg PO DAILY PRN PRN Reason: ANXIETY Last Admin: 02/01/17 09:44 Dose: 0.25 mg Aspirin (Asa -) 81 mg PO DAILY [facility] Last Admin: 02/03/17 12:14 Dose: 81 mg Budesonide/Formoterol Fumarate (Symbicort 80/4.5mcg -) 1 puff IH BID [facility] Last Admin: 02/03/17 21:40 Dose: 1 inhaler Clopidogrel Bisulfate (Plavix -) 75 mg PO DAILY [facility] Last Admin: 02/03/17 12:15 Dose: 75 mg Docusate Sodium (Colace -) 100 mg PO BID [facility] Last Admin: 02/03/17 21:55 Dose: 100 mg Furosemide (Lasix Injection -) 40 mg IVPUSH BID@0600,1800 [facility] Last Admin: 02/03/17 18:33 Dose: 40 mg Guaifenesin (Robitussin -) 10 ml PO Q6H PRN Last Admin: 02/02/17 16:59 Dose: 10 ml Heparin Sodium (Porcine) (Heparin -) 5,000 unit SQ BID [facility] Last Admin: 02/03/17 21:56 Dose: 5,000 unit Aztreonam 1 gm/ Dextrose 50 mls @ 100 mls/hr IVPB Q8H-IV MAGO PRN Reason: Protocol Last Admin: 02/03/17 22:04 Dose: 100 mls/hr Levothyroxine Sodium (Synthroid -) 75 mcg PO DAILY@0700 [facility] Last Admin: 02/03/17 06:09 Dose: 75 mcg Lidocaine (Lidoderm Patch -) 1 patch TP DAILY [facility] Last Admin: 02/03/17 12:15 Dose: 1 patch Metoprolol Tartrate (Lopressor -) 12.5 mg PO BID [facility] Last Admin: 02/03/17 21:55 Dose: 12.5 mg Miscellaneous (Lidoderm Patch Removal) 1 each MC DAILY@2200 [facility] Last Admin: 02/03/17 21:56 Dose: 1 each Ondansetron HCl (Zofran Injection) 4 mg IVPUSH Q4H PRN PRN Reason: NAUSEA AND/OR VOMITING Stop: 02/03/17 23:46 Last Admin: 02/03/17 12:16 Dose: 4 mg Oxycodone HCl (Roxicodone -) 5 mg PO Q4H PRN PRN Reason: PAIN Last Admin: 02/03/17 12:16 Dose: 2.5 mg Sertraline HCl (Zoloft -) 25 mg PO DAILY [facility] Tiotropium [place] (Spiriva -) 1 puff IH DAILY [facility] Last Admin: 02/03/17 12:15 Dose: 1 inhaler - Objective Vital Signs: Vital Signs Temperature 97.0 F L 02/03/17 18:00 Pulse Rate 102 H 02/03/17 18:00 Respiratory Rate 22 02/03/17 18:00 Blood Pressure 117/51 02/03/17 18:00 O2 Sat by Pulse Oximetry (%) 93 L 02/02/17 21:00 Constitutional: Yes: Anxious, Severe Distress Eyes: Yes: WNL HENT: Yes: WNL Cardiovascular: Yes: S1, S2 (split) Respiratory: Yes: Regular Gastrointestinal: Yes: Soft ...Rectal Exam: Yes: Deferred Genitourinary: Yes: Anuria Breast(s): Yes: WNL Musculoskeletal: Yes: Joint Stiffness, Muscle Weakness Extremities: Yes: Cool Edema: Yes Edema: LLE: 3+, RLE: 3+ Peripheral Pulses WNL: No Peripheral Pulses: Left Doralis Pedis: 1+, Right Dorsalis Pedis: 1+ Integumentary: Yes: Venous Stasis Changes Neurological: Yes: Alert, Oriented, Weakness Psychiatric: Yes: Agitated, Other (depression) Labs: CBC, BMP 02/03/17 05:18 02/03/17 05:18 INR, PTT INR 1.23 (0.82-1.09) H 01/31/17 22:12 Abnormal Lab Results 02/03/17 02/03/17 05:18 05:18 WBC 23.9 H MCV 79.1 L RDW 16.3 H Plt Count 545 H Neutrophils % 92.3 H Lymphocytes % 2.4 L Sodium 124 L* Chloride 77 L Carbon Dioxide 34 H BUN 81 H Creatinine 1.3 H D - ....Imaging Chest X-ray: Image Reviewed Other: Image Reviewed (telemetry: NSR: periods of AV pacing) Problem List - Problems (1) Asthma Code(s): J45.909 - UNSPECIFIED ASTHMA, UNCOMPLICATED (2) COPD (chronic obstructive pulmonary disease) Code(s): J44.9 - CHRONIC OBSTRUCTIVE PULMONARY DISEASE, UNSPECIFIED (3) Hyponatremia Code(s): E87.1 - HYPO-OSMOLALITY AND HYPONATREMIA (4) Hypothyroidism (acquired) Assessment/Plan: free T4 mildly elevated. Code(s): E03.9 - HYPOTHYROIDISM, UNSPECIFIED (5) Acute on chronic systolic and diastolic heart failure, NYHA class 4 Assessment/Plan: On metoprolol for systolic CHF, HR control. Problematic continuing ACEI, spironolactone due to hypotension, though pt has severe systolic dysfunction and would benefit from them. Hyponatremic; f/u with database marketing specialist regarding diuretics. BUN/Cr, electrolytes, dailys weight, Is and Os. Code(s): I50.43 - ACUTE ON CHRONIC COMBINED SYSTOLIC AND DIASTOLIC HRT FAIL (6) S/P aortic valve replacement with bioprosthetic valve Code(s): Z95.3 - PRESENCE OF XENOGENIC HEART VALVE (7) Anxiety and depression Assessment/Plan: DNR/DNI. Pt's son says she became "depressed like this" when she had CABG years ago, " and the antidepressant (Xoloft) worked like a miracle". F/u with psychiatrist. Pt wants hospice if she continues to feel weak and dyspneic. Code(s): F41.8 - OTHER SPECIFIED ANXIETY DISORDERS (8) Acute on chronic respiratory failure with hypoxemia Code(s): J96.21 - ACUTE AND CHRONIC RESPIRATORY FAILURE WITH HYPOXIA (9) Major depress dis, severe Code(s): F32.2 - MAJOR DEPRESSV DISORD, SINGLE EPSD, SEV W/O PSYCH FEATURES (10) Sepsis Assessment/Plan: marked leukocytosis (?on steroids). Afebrile On antibiotics. F/u cultures; negative til now. Code(s): A41.9 - SEPSIS, UNSPECIFIED ORGANISM (11) Nonsustained ventricular tachycardia Assessment/Plan: no shocks. Continue present medications. Code(s): I47.2 - VENTRICULAR TACHYCARDIA (12) Sleep apnea in adult Code(s): G47.33 - OBSTRUCTIVE SLEEP APNEA (ADULT) (PEDIATRIC) (13) Valvular heart disease Code(s): I38 - ENDOCARDITIS, VALVE UNSPECIFIED
[2017-02-04] MEDS: AZTREONAM 1 GM in DEXTROSE 5%-WATER - 50 ML IVPB SCH ×2 (02:48→09:03)
[2017-02-04] MEDS: LEVOTHYROXINE NA 75 MCG TABLET (FP) PO SCH (06:11)
[2017-02-04] MEDS: FUROSEMIDE 40 MG/4 ML INJECTABLE VIAL IVPUSH SCH (06:16)
[2017-02-04] MEDS: guaiFENesin 200 MG/10 ML 10 ML UNIT-DOSE CUPS PO PRN (07:59)
[2017-02-04 08:24] LABS: ALBUMIN 2.5 g/dl (3.4-5.0); ALK PHOS 263 U/L (45-117); ANION GAP 10 (8-16); BILIRUBIN,TOTAL 0.9 mg/dL (0.2-1.0); CALCIUM 8.9 mg/dL (8.5-10.1); CO2 34 mmol/L (21-32); CREATININE 1.6 mg/dL (0.55-1.02); GLUCOSE,RANDOM 89 mg/dL (74-106); SGOT/AST 48 U/L (15-37); SGPT/ALT 41 U/L (12-78); THYROID STIMULATING HORMONE 0.33 uIU/ml (0.358-3.74); TOT PROT 6.8 g/dl (6.4-8.2)
[2017-02-04] MEDS ORDERED: PT OWN MED DRAWER 7, Y5N ONE (08:42)
--- NOTE | 2017-02-04 08:56 | PN ---
Progress Note, Physician History of Present Illness: The patient is a 81 year old female resident from [facility], with a significant past medical history of Asthma, CHF, COPD (on 3L O2), HTN, HLD, CAD (s/p CABG 14 yrs ago), Hypothyroidism, recurrent UTIs who presents to the emergency department with SOB today. Patient was recently admitted for UTI on January 12 2017 and discharged on January 26 2017 to [facility]. Patient returns to the ED for worsening SOB, cough and worsening LE edema. Patient denies chest pain, headache or dizziness. She denies fever, chills, abdominal pain, nausea, vomit, diarrhea or constipation. She denies dysuria, frequency, urgency or hematuria. Patient denies recent travel. [facility] s/p bioprosthetic aortic valve replacement (AVR) 04/2013 at [facility] s/p coronary stents, the last 02/2016 S/P CABG 1999 s/p cholecystectomy s/p ICD 2015 s/p Rt TKR Ongoing medical problems " I have had to be resucitated on the operating table after right knee surgery and after cholecystectomy") ?OSAS anxiety/depression CAD; s/p CABG 1999 (denies hx of [facility]) cor. cath 04/2012: nonobstructive disease COPD/bronchial asthma DM HTN hypercholesterolemia Moderately severe systolic LV dysfunction-->ICD in 2015. overweight (once weighed 212 lbs; now 137 lbs as of 10/2016) s/p bioprosthetic AVR 04/2013 gout - Current Medication List Current Medications: Active Medications Acetaminophen (Tylenol -) 650 mg PO Q4H PRN PRN Reason: FEVER Last Admin: 02/02/17 16:00 Dose: 650 mg Alprazolam (Xanax -) 0.25 mg PO DAILY PRN PRN Reason: ANXIETY Last Admin: 02/01/17 09:44 Dose: 0.25 mg Aspirin (Asa -) 81 mg PO DAILY [facility] Last Admin: 02/03/17 12:14 Dose: 81 mg Budesonide/Formoterol Fumarate (Symbicort 80/4.5mcg -) 1 puff IH BID [facility] Last Admin: 02/03/17 21:40 Dose: 1 inhaler Clopidogrel Bisulfate (Plavix -) 75 mg PO DAILY [facility] Last Admin: 02/03/17 12:15 Dose: 75 mg Docusate Sodium (Colace -) 100 mg PO BID [facility] Last Admin: 02/03/17 21:55 Dose: 100 mg Furosemide (Lasix Injection -) 40 mg IVPUSH BID@0600,1800 [facility] Last Admin: 02/04/17 06:16 Dose: 40 mg Guaifenesin (Robitussin -) 10 ml PO Q6H PRN Last Admin: 02/04/17 07:59 Dose: 10 ml Heparin Sodium (Porcine) (Heparin -) 5,000 unit SQ BID [facility] Last Admin: 02/03/17 21:56 Dose: 5,000 unit Aztreonam 1 gm/ Dextrose 50 mls @ 100 mls/hr IVPB Q8H-IV MAGO PRN Reason: Protocol Last Admin: 02/04/17 02:48 Dose: 100 mls/hr Levothyroxine Sodium (Synthroid -) 75 mcg PO DAILY@0700 [facility] Last Admin: 02/04/17 06:11 Dose: 75 mcg Lidocaine (Lidoderm Patch -) 1 patch TP DAILY [facility] Last Admin: 02/03/17 12:15 Dose: 1 patch Metoprolol Tartrate (Lopressor -) 12.5 mg PO BID [facility] Last Admin: 02/03/17 21:55 Dose: 12.5 mg Miscellaneous (Lidoderm Patch Removal) 1 each MC DAILY@2200 [facility] Last Admin: 02/03/17 21:56 Dose: 1 each Oxycodone HCl (Roxicodone -) 5 mg PO Q4H PRN PRN Reason: PAIN Last Admin: 02/03/17 12:16 Dose: 2.5 mg Sertraline HCl (Zoloft -) 25 mg PO DAILY [facility] Tiotropium [place] (Spiriva -) 1 puff IH DAILY [facility] Last Admin: 02/03/17 12:15 Dose: 1 inhaler - Objective Vital Signs: Vital Signs Temperature 97.5 F L 02/04/17 02:00 Pulse Rate 101 H 02/04/17 06:00 Respiratory Rate 20 02/04/17 06:00 Blood Pressure 137/88 02/04/17 06:00 O2 Sat by Pulse Oximetry (%) 95 02/03/17 21:00 Eyes: Yes: WNL, Conjunctiva Clear, EOM Intact HENT: Yes: WNL, Atraumatic, Normocephalic Neck: Yes: WNL, Supple, Trachea Midline Cardiovascular: Yes: WNL, Regular Rate and Rhythm Respiratory: Yes: Diminished, Rhonchi Gastrointestinal: Yes: WNL, Normal Bowel Sounds Genitourinary: Yes: WNL Musculoskeletal: Yes: WNL Extremities: Yes: WNL Edema: Yes Edema: LLE: 2+, RLE: 2+ Integumentary: Yes: WNL Neurological: Yes: WNL, Alert, Oriented ...Motor Strength: WNL Psychiatric: Yes: WNL Labs: CBC, BMP 02/03/17 05:18 02/04/17 05:20 INR, PTT INR 1.23 (0.82-1.09) H 01/31/17 22:12 Assessment/Plan Problems (1) Asthma Code(s): J45.909 - UNSPECIFIED ASTHMA, UNCOMPLICATED (2) COPD (chronic obstructive pulmonary disease) Code(s): J44.9 - CHRONIC OBSTRUCTIVE PULMONARY DISEASE, UNSPECIFIED (3) Hyponatremia Code(s): E87.1 - HYPO-OSMOLALITY AND HYPONATREMIA (4) Hypothyroidism (acquired) Assessment/Plan: free T4 mildly elevated. Code(s): E03.9 - HYPOTHYROIDISM, UNSPECIFIED (5) Acute on chronic systolic and diastolic heart failure, NYHA class 4 Assessment/Plan: will increase lasix to 80 IV BID On metoprolol for systolic CHF, HR control. Problematic continuing ACEI, spironolactone due to hypotension, though pt has severe systolic dysfunction and would benefit from them. Hyponatremic; f/u with supervisor anodizing regarding diuretics. BUN/Cr, electrolytes, dailys weight, Is and Os. Code(s): I50.43 - ACUTE ON CHRONIC COMBINED SYSTOLIC AND DIASTOLIC HRT FAIL (6) S/P aortic valve replacement with bioprosthetic valve Code(s): Z95.3 - PRESENCE OF XENOGENIC HEART VALVE (7) Anxiety and depression Assessment/Plan: DNR/DNI. Pt's son says she became "depressed like this" when she had CABG years ago, " and the antidepressant (Xoloft) worked like a miracle". F/u with psychiatrist. Pt wants hospice if she continues to feel weak and dyspneic. Code(s): F41.8 - OTHER SPECIFIED ANXIETY DISORDERS (8) Acute on chronic respiratory failure with hypoxemia Code(s): J96.21 - ACUTE AND CHRONIC RESPIRATORY FAILURE WITH HYPOXIA (9) Major depress dis, severe Code(s): F32.2 - MAJOR DEPRESSV DISORD, SINGLE EPSD, SEV W/O PSYCH FEATURES (10) Sepsis Assessment/Plan: marked leukocytosis (?on steroids). Afebrile On antibiotics. F/u cultures; negative til now. Code(s): A41.9 - SEPSIS, UNSPECIFIED ORGANISM (11) Nonsustained ventricular tachycardia Assessment/Plan: no shocks. Continue present medications. Code(s): I47.2 - VENTRICULAR TACHYCARDIA (12) Sleep apnea in adult Code(s): G47.33 - OBSTRUCTIVE SLEEP APNEA (ADULT) (PEDIATRIC) (13) Valvular heart disease Code(s): I38 - ENDOCARDITIS, VALVE UNSPECIFIED
[2017-02-04] MEDS: METOPROLOL TARTRATE 25 MG TABLET (FP) PO SCH ×2 (09:00→21:56)
[2017-02-04] MEDS: LIDOCAINE 5% TOPICAL PATCH TP SCH (09:01)
[2017-02-04] MEDS: SERTRALINE HCL 25 MG TABLET (FP) PO SCH (09:01)
[2017-02-04] MEDS: CLOPIDOGREL BISULFATE 75 MG TABLET (FP) PO SCH (09:02)
[2017-02-04] MEDS: DOCUSATE SODIUM 100 MG CAPSULE (FP) PO SCH ×2 (09:02→21:56)
[2017-02-04] MEDS: HEPARIN NA (PORCINE) 5,000 UNITS/ML 1ML VIAL SQ SCH ×2 (09:02→21:56)
[2017-02-04] MEDS: ASPIRIN 81 MG CHEWABLE TABLETS PO SCH (09:02)
[2017-02-04] MEDS: BUDESONIDE/FORMETEROL FUMARATE 80/4.5 mcg INHALER IH SCH ×2 (09:10→21:56)
[2017-02-04] MEDS: TIOTROPIUM BROMIDE 18 MCG/INH (DEVICE W/ 5 CAPSULES) IH SCH (09:10)
--- NOTE | 2017-02-04 11:31 | PN ---
Progress Note (short form) - Note Progress Note: Pt. was seen briefly. She complained of not feeling rested. The patient appeared to be trembling as she was sitting upright. She was not receptive to a counseling visit today. She will be seen next week for a followup. Problem List - Problems (1) Major depress dis, severe Code(s): F32.2 - MAJOR DEPRESSV DISORD, SINGLE EPSD, SEV W/O PSYCH FEATURES (2) Anxiety about health Code(s): F41.8 - OTHER SPECIFIED ANXIETY DISORDERS
[2017-02-04] MEDS ORDERED: LORazepam 2 MG/ML SDV VIAL IM PRN (12:42)
[2017-02-04] MEDS: morphine CARPU-JECT 8 MG/1 ML DISP.SYRIN IVPB PRN ×2 (12:54→16:32)
--- NOTE | 2017-02-04 13:02 | PN ---
Progress Note (short form) - Note Progress Note: pt anxious. crying says pain all over body pain meds/ xanax not helping. started on zoloft yesterday family at bedside Vital Signs Temp 98 F 02/04/17 10:00 Pulse 100 H 02/04/17 10:00 Resp 20 02/04/17 10:00 BP 94/68 02/04/17 10:00 Pulse Ox 95 02/04/17 09:00 Intake & Output 02/03/17 02/04/17 02/04/17 23:59 11:59 23:59 Intake Total 300 300 Output Total 700 Balance -400 300 Intake: IVPB 100 Oral 300 200 Output: Urine 700 Void 700 Other: Voiding Method Indwelling Catheter Indwelling Catheter # Unmeasured Voids Void 1 Bowel Movement No Active Medications Acetaminophen (Tylenol -) 650 mg PO Q4H PRN PRN Reason: FEVER Last Admin: 02/02/17 16:00 Dose: 650 mg Alprazolam (Xanax -) 0.25 mg PO DAILY PRN PRN Reason: ANXIETY Last Admin: 02/01/17 09:44 Dose: 0.25 mg Aspirin (Asa -) 81 mg PO DAILY [facility] Last Admin: 02/04/17 09:02 Dose: 81 mg Budesonide/Formoterol Fumarate (Symbicort 80/4.5mcg -) 1 puff IH BID [facility] Last Admin: 02/04/17 09:10 Dose: 1 inhaler Clopidogrel Bisulfate (Plavix -) 75 mg PO DAILY [facility] Last Admin: 02/04/17 09:02 Dose: 75 mg Docusate Sodium (Colace -) 100 mg PO BID [facility] Last Admin: 02/04/17 09:02 Dose: 100 mg Furosemide (Lasix Injection -) 80 mg IVPB BID@0600,1400 [facility] Guaifenesin (Robitussin -) 10 ml PO Q6H PRN Last Admin: 02/04/17 07:59 Dose: 10 ml Heparin Sodium (Porcine) (Heparin -) 5,000 unit SQ BID [facility] Last Admin: 02/04/17 09:02 Dose: 5,000 unit Levothyroxine Sodium (Synthroid -) 75 mcg PO DAILY@0700 [facility] Last Admin: 02/04/17 06:11 Dose: 75 mcg Lidocaine (Lidoderm Patch -) 1 patch TP DAILY [facility] Last Admin: 02/04/17 09:01 Dose: 1 patch Lorazepam (Ativan Injection -) 1 mg IM Q6H PRN PRN Reason: ANXIETY Metoprolol Tartrate (Lopressor -) 12.5 mg PO BID [facility] Last Admin: 02/04/17 09:00 Dose: 12.5 mg Miscellaneous (Lidoderm Patch Removal) 1 each MC DAILY@2200 [facility] Last Admin: 02/03/17 21:56 Dose: 1 each Morphine Sulfate (Morphine Sulfate) 1 mg IVPB Q6H PRN PRN Reason: PAIN Last Admin: 02/04/17 12:54 Dose: 1 mg Oxycodone HCl (Roxicodone -) 5 mg PO Q4H PRN PRN Reason: PAIN Last Admin: 02/03/17 12:16 Dose: 2.5 mg Sertraline HCl (Zoloft -) 25 mg PO DAILY [facility] Last Admin: 02/04/17 09:01 Dose: 25 mg Tiotropium [place] (Spiriva -) 1 puff IH DAILY [facility] Last Admin: 02/04/17 09:10 Dose: 1 inhaler CBC, BMP 02/03/17 05:18 02/04/17 05:20 Microbiology 01/31/17 22:12 Blood Culture - Preliminary Blood - Peripheral Venous NO GROWTH OBTAINED AFTER 72 HOURS, INCUBATION TO CONTINUE FOR 2 DAYS. 01/31/17 22:12 Blood Culture - Preliminary Blood - Peripheral Venous NO GROWTH OBTAINED AFTER 72 HOURS, INCUBATION TO CONTINUE FOR 2 DAYS. 01/31/17 23:47 Urine Culture - Final Urine - Urine Clean Catch Escherichia Coli Physical exam Constitutional: Yes: anxious Cardiovascular: Yes: Regular Rate and Rhythm Respiratory: Yes: bilateral rhonchi Gastrointestinal: Yes: Normal Bowel Sounds, Soft, Abdomen, Obese. No: Distention, Tenderness Edema: Yes neuro--alert and awake Psych--anxious/ depressed Problem List - Problems (1) Bilateral edema of lower extremity Code(s): R60.0 - LOCALIZED EDEMA (2) CHF exacerbation Code(s): I50.9 - HEART FAILURE, UNSPECIFIED (3) COPD (chronic obstructive pulmonary disease) Code(s): J44.9 - CHRONIC OBSTRUCTIVE PULMONARY DISEASE, UNSPECIFIED (4) Hyponatremia Code(s): E87.1 - HYPO-OSMOLALITY AND HYPONATREMIA (5) Acute on chronic systolic CHF (congestive heart failure) Code(s): I50.23 - ACUTE ON CHRONIC SYSTOLIC (CONGESTIVE) HEART FAILURE (6) Sepsis Code(s): A41.9 - SEPSIS, UNSPECIFIED ORGANISM Assessment/Plan discussed with family / nursing staff will give ativan for anxiety prn will also give small dose of morphine for pain/ will help with dysnea also. marii sandoval. will follow
--- NOTE | 2017-02-04 13:08 | PN ---
Progress Note (short form) - Note Progress Note: NAD on 3 L NC O2. Generalized malaise and fatigue. Severe electrolyte derangement noted. Intake & Output 02/01/17 02/02/17 02/03/17 02/04/17 23:59 23:59 23:59 23:59 Intake Total 60 1100 740 300 Output Total 700 Balance 60 1100 40 300 Weight 154 lb 155 lb 9.6 oz Last Vital Signs Temp Pulse Resp BP Pulse Ox 98 F 100 H 20 94/68 95 02/04/17 10:00 02/04/17 10:00 02/04/17 10:00 02/04/17 10:00 02/04/17 09:00 Active Medications Acetaminophen (Tylenol -) 650 mg PO Q4H PRN PRN Reason: FEVER Last Admin: 02/02/17 16:00 Dose: 650 mg Alprazolam (Xanax -) 0.25 mg PO DAILY PRN PRN Reason: ANXIETY Last Admin: 02/01/17 09:44 Dose: 0.25 mg Aspirin (Asa -) 81 mg PO DAILY [facility] Last Admin: 02/04/17 09:02 Dose: 81 mg Budesonide/Formoterol Fumarate (Symbicort 80/4.5mcg -) 1 puff IH BID [facility] Last Admin: 02/04/17 09:10 Dose: 1 inhaler Clopidogrel Bisulfate (Plavix -) 75 mg PO DAILY [facility] Last Admin: 02/04/17 09:02 Dose: 75 mg Docusate Sodium (Colace -) 100 mg PO BID [facility] Last Admin: 02/04/17 09:02 Dose: 100 mg Furosemide (Lasix Injection -) 80 mg IVPB BID@0600,1400 [facility] Guaifenesin (Robitussin -) 10 ml PO Q6H PRN Last Admin: 02/04/17 07:59 Dose: 10 ml Heparin Sodium (Porcine) (Heparin -) 5,000 unit SQ BID [facility] Last Admin: 02/04/17 09:02 Dose: 5,000 unit Levothyroxine Sodium (Synthroid -) 75 mcg PO DAILY@0700 [facility] Last Admin: 02/04/17 06:11 Dose: 75 mcg Lidocaine (Lidoderm Patch -) 1 patch TP DAILY [facility] Last Admin: 02/04/17 09:01 Dose: 1 patch Lorazepam (Ativan Injection -) 1 mg IM Q6H PRN PRN Reason: ANXIETY Metoprolol Tartrate (Lopressor -) 12.5 mg PO BID [facility] Last Admin: 02/04/17 09:00 Dose: 12.5 mg Miscellaneous (Lidoderm Patch Removal) 1 each MC DAILY@2200 [facility] Last Admin: 02/03/17 21:56 Dose: 1 each Morphine Sulfate (Morphine Sulfate) 1 mg IVPB Q6H PRN PRN Reason: PAIN Last Admin: 02/04/17 12:54 Dose: 1 mg Oxycodone HCl (Roxicodone -) 5 mg PO Q4H PRN PRN Reason: PAIN Last Admin: 02/03/17 12:16 Dose: 2.5 mg Sertraline HCl (Zoloft -) 25 mg PO DAILY [facility] Last Admin: 02/04/17 09:01 Dose: 25 mg Tiotropium [place] (Spiriva -) 1 puff IH DAILY [facility] Last Admin: 02/04/17 09:10 Dose: 1 inhaler Constitutional: Yes: weak appearing Eyes: Yes: Conjunctiva Clear HENT: Yes: Atraumatic Neck: Yes: Supple Cardiovascular: Yes: S1, S2 Respiratory: Yes: On Nasal O2, basilar rhonchi, no wheeze Gastrointestinal: Yes: Soft Genitourinary: Yes: WNL Musculoskeletal: Yes: Muscle Weakness Edema: Yes Edema: LLE: 2+, RLE: 2+ Neurological: Yes: Oriented Psychiatric: Yes: Other (deperessed) Laboratory Results - last 24 hr 02/03/17 02/04/17 02/04/17 23:30 05:20 05:20 Sodium 122 L* Potassium 4.9 Chloride 78 L Carbon Dioxide 34 H Anion Gap 10 BUN 85 H Creatinine 1.6 H D Creat Clearance w eGFR 30.78 Random Glucose 89 Serum Osmolality 296 Calcium 8.9 Total Bilirubin 0.9 AST 48 H D ALT 41 D Alkaline Phosphatase 263 H D Total Protein 6.8 Albumin 2.5 L TSH 0.33 L D Urine Osmolality 321 Problem List - Problems (1) Acute on chronic systolic CHF (congestive heart failure) Code(s): I50.23 - ACUTE ON CHRONIC SYSTOLIC (CONGESTIVE) HEART FAILURE (2) Anxiety about health Code(s): F41.8 - OTHER SPECIFIED ANXIETY DISORDERS (3) Anxiety and depression Code(s): F41.8 - OTHER SPECIFIED ANXIETY DISORDERS (4) Aortic valve replaced Code(s): Z95.2 - PRESENCE OF PROSTHETIC HEART VALVE (5) Asthma Code(s): J45.909 - UNSPECIFIED ASTHMA, UNCOMPLICATED (6) Bilateral edema of lower extremity Code(s): R60.0 - LOCALIZED EDEMA (7) CAD (coronary artery disease) Code(s): I25.10 - ATHSCL HEART DISEASE OF [place] CORONARY ARTERY W/O ANG PCTRS (8) CHF (congestive heart failure) Code(s): I50.9 - HEART FAILURE, UNSPECIFIED Qualifiers: Congestive heart failure type: unspecified congestive heart failure type Congestive heart failure chronicity: unspecified congestive heart failure chronicity Qualified Code(s): I50.9 - Heart failure, unspecified; I50.9 - Heart failure, unspecified; I50.9 - Heart failure, unspecified; I50.9 - Heart failure, unspecified (9) Acute on chronic respiratory failure with hypoxemia Code(s): J96.21 - ACUTE AND CHRONIC RESPIRATORY FAILURE WITH HYPOXIA (10) COPD (chronic obstructive pulmonary disease) Code(s): J44.9 - CHRONIC OBSTRUCTIVE PULMONARY DISEASE, UNSPECIFIED (11) Hyponatremia Code(s): E87.1 - HYPO-OSMOLALITY AND HYPONATREMIA (12) S/P aortic valve replacement with bioprosthetic valve Code(s): Z95.3 - PRESENCE OF XENOGENIC HEART VALVE (13) Diaphragm paralysis Code(s): J98.6 - DISORDERS OF DIAPHRAGM (14) Shortness of breath Code(s): R06.02 - SHORTNESS OF BREATH (15) UTI (urinary tract infection) Code(s): N39.0 - URINARY TRACT INFECTION, SITE NOT SPECIFIED Qualifiers: Urinary tract infection type: site unspecified Hematuria presence: without hematuria Qualified Code(s): N39.0 - Urinary tract infection, site not specified; N39.0 - Urinary tract infection, site not specified; R31.9 - Hematuria, unspecified; R31.9 - Hematuria, unspecified (16) Anxiety 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 Code(s): F41.0 - PANIC DISORDER [EPISODIC PAROXYSMAL ANXIETY] (17) Hx of CABG Code(s): Z95.1 - PRESENCE OF AORTOCORONARY BYPASS GRAFT (18) Hyperlipidemia Code(s): E78.5 - HYPERLIPIDEMIA, UNSPECIFIED (19) Hypertension Code(s): I10 - ESSENTIAL (PRIMARY) HYPERTENSION (20) ICD (implantable cardioverter-defibrillator) in place Code(s): Z95.810 - PRESENCE OF AUTOMATIC (IMPLANTABLE) CARDIAC DEFIBRILLATOR (21) Sleep apnea in adult Code(s): G47.33 - OBSTRUCTIVE SLEEP APNEA (ADULT) (PEDIATRIC) IMP ACUTE ON CHRONIC HYPOXEMIC RESPIRATORY FAILURE DECOMPENSATED CONGESTIVE HEART FAILURE S/P ICD COPD EXACERBATION LEFT DIAPHRAGMATIC PARALYSIS ASHD S/P CABG,STENTS HYPONATREMIA ACUTE ON CHRONIC KIDNEY DISEASE DM S/P AVR JERALD DEPRESSION/ANXIETY UTI PLAN IV LASIX PER RENAL INHALED BRONCHODILATORS SUPPLEMENTAL O2 DAILY WTS MONITOR LYTES/NA F/U CHEST X-RAY ANTIBIOTICS PER ID DNR/DNI DR RYAN
--- NOTE | 2017-02-04 13:45 | PN ---
Progress Note (short form) - Note Progress Note: nephrology f/u c/o severe pain na 122 today on lasix 80 bid no weights scant urine in bag concentrated plan bmp later today daily weights as bridgette Active Medications Acetaminophen (Tylenol -) 650 mg PO Q4H PRN PRN Reason: FEVER Last Admin: 02/04/17 14:14 Dose: 650 mg Alprazolam (Xanax -) 0.25 mg PO DAILY PRN PRN Reason: ANXIETY Last Admin: 02/01/17 09:44 Dose: 0.25 mg Aspirin (Asa -) 81 mg PO DAILY [facility] Last Admin: 02/04/17 09:02 Dose: 81 mg Budesonide/Formoterol Fumarate (Symbicort 80/4.5mcg -) 1 puff IH BID [facility] Last Admin: 02/04/17 21:56 Dose: 1 inhaler Clopidogrel Bisulfate (Plavix -) 75 mg PO DAILY [facility] Last Admin: 02/04/17 09:02 Dose: 75 mg Docusate Sodium (Colace -) 100 mg PO BID [facility] Last Admin: 02/04/17 21:56 Dose: 100 mg Furosemide (Lasix Injection -) 80 mg IVPB BID@0600,1400 [facility] Last Admin: 02/04/17 14:49 Dose: 80 mg Guaifenesin (Robitussin -) 10 ml PO Q6H PRN Last Admin: 02/04/17 07:59 Dose: 10 ml Heparin Sodium (Porcine) (Heparin -) 5,000 unit SQ BID [facility] Last Admin: 02/04/17 21:56 Dose: 5,000 unit Levothyroxine Sodium (Synthroid -) 75 mcg PO DAILY@0700 [facility] Last Admin: 02/04/17 06:11 Dose: 75 mcg Lidocaine (Lidoderm Patch -) 1 patch TP DAILY [facility] Last Admin: 02/04/17 09:01 Dose: 1 patch Lorazepam (Ativan Injection -) 1 mg IM Q6H PRN PRN Reason: ANXIETY Metoprolol Tartrate (Lopressor -) 12.5 mg PO BID [facility] Last Admin: 02/04/17 21:56 Dose: 12.5 mg Miscellaneous (Lidoderm Patch Removal) 1 each MC DAILY@2200 [facility] Last Admin: 02/04/17 21:56 Dose: 1 each Morphine Sulfate (Morphine Sulfate) 1 mg IVPB Q6H PRN PRN Reason: PAIN Last Admin: 02/04/17 12:54 Dose: 1 mg Morphine Sulfate (Morphine Sulfate) 1 mg IVPB Q4H PRN Last Admin: 02/04/17 16:32 Dose: 1 mg Ondansetron HCl (Zofran Injection) 4 mg IVPUSH Q4H PRN PRN Reason: NAUSEA AND/OR VOMITING Stop: 02/05/17 10:45 Oxycodone HCl (Roxicodone -) 5 mg PO Q4H PRN PRN Reason: PAIN Last Admin: 02/04/17 14:14 Dose: 5 mg Sertraline HCl (Zoloft -) 25 mg PO DAILY [facility] Last Admin: 02/04/17 09:01 Dose: 25 mg Tiotropium [place] (Spiriva -) 1 puff IH DAILY [facility] Last Admin: 02/04/17 09:10 Dose: 1 inhaler Last Vital Signs Temp Pulse Resp BP Pulse Ox 98.2 F 100 H 22 139/84 95 02/04/17 23:00 02/04/17 23:00 02/04/17 23:00 02/04/17 23:00 02/04/17 09:00 CBC, BMP 02/03/17 05:18 02/04/17 20:10 Hyponatremia na 122 today on lasix 80 bid Generalized edema - no weights done today scant urine in bag concentrated tendency to hyperkalemia plan- bmp later today daily weights as bridgette
[2017-02-04 14:14] LABS: SODIUM,RANDOM URINE 6 MMOL/L
[2017-02-04] MEDS: oxyCODONE HCL 5 MG TABLET PO PRN (14:14)
[2017-02-04] MEDS: ACETAMINOPHEN 325 MG TABLET (FP) PO PRN (14:14)
[2017-02-04] MEDS ORDERED: IPRATROPIUM BR 0.02% 0.5 MG/2.5 ML VIAL.NEB. NEB ONE (14:48)
[2017-02-04] MEDS: FUROSEMIDE 100 MG/10 ML INJECTABLE VIAL IVPB SCH (14:49)
[2017-02-04 21:30] LABS: ANION GAP 10 (8-16); CALCIUM 8.9 mg/dL (8.5-10.1); CO2 34 mmol/L (21-32); CREATININE 1.9 mg/dL (0.55-1.02); GLUCOSE,RANDOM 112 mg/dL (74-106)
[2017-02-04] MEDS: LIDOCAINE PATCH REMOVAL MC SCH (21:56)
[2017-02-04] MEDS ORDERED: ONDANSETRON 4 MG/2 ML VIAL IVPUSH PRN (22:44)
[2017-02-05] MEDS: morphine CARPU-JECT 8 MG/1 ML DISP.SYRIN IVPB PRN ×2 (01:26→08:05)
[2017-02-05] MEDS: LEVOTHYROXINE NA 75 MCG TABLET (FP) PO SCH (06:08)
[2017-02-05] MEDS: FUROSEMIDE 100 MG/10 ML INJECTABLE VIAL IVPB SCH ×2 (06:08→14:08)
--- NOTE | 2017-02-05 06:19 | HOSP ---
Subjective - Review of Symptoms Events since last encounter: Paged by RN due to shortness of breath. Chart reviewed. Pt is an 81yo F DNR/DNI with PMHx of end stage COPD and CHF, HTN , HLD, CAD (s/p CABG 14 yrs ago) who initially presented to the ER with worsening SOB and LE edema. Latest echo from this month showed EF of 18.3% with biventricular severely reduced systolic ejection fraction. At home the patient takes PO Lasix 40 BID, but is currently on IV Lasix 80mg BID. RN noted the patient to be increasingly SOB, O2 sat dropped down to the 70s. She was switched to a venti-mask on 9L which brought her O2 up to 89-93. Call was placed to Dr. Mason who asked her to be evaluated by the hospitalists. Patient was seen and examined. She is somnolent, on venti-mask, visibly tachypneic, opens eyes at times, but not verbally responding to questions Vital Signs Temperature 98.2 F 02/05/17 02:00 Pulse Rate 100 H Respiratory Rate 22 Blood Pressure 93/59 O2 Sat by Pulse Oximetry (%) 93 L CV - S1, S2, RRR LUNG - Diffuse crackles along lateral and anterior lungs ABD - Soft, NT, ND MSK - 3+ pitting edema in BLLE A/P: # Acute on Chronic CHF Exacerbation - Satting well on venti-mask 9L - Though SBP <100, the decision was made to administer Lasix 40mg IVP with close BP monitoring - Stat CXR ordered - Aware of DNR/DNI status Visit type - Emergency Visit Emergency Visit: No - New Patient This patient is new to me today: No - Critical Care Critical Care patient: No
--- NOTE | 2017-02-05 08:49 | PN ---
Progress Note, Physician History of Present Illness: The patient is a 81 year old female resident from [facility], with a significant past medical history of Asthma, CHF, COPD (on 3L O2), HTN, HLD, CAD (s/p CABG 14 yrs ago), Hypothyroidism, recurrent UTIs who presents to the emergency department with SOB today. Patient was recently admitted for UTI on January 12 2017 and discharged on January 26 2017 to [facility]. Patient returns to the ED for worsening SOB, cough and worsening LE edema. Patient denies chest pain, headache or dizziness. She denies fever, chills, abdominal pain, nausea, vomit, diarrhea or constipation. She denies dysuria, frequency, urgency or hematuria. Patient denies recent travel. [facility] s/p bioprosthetic aortic valve replacement (AVR) 04/2013 at [facility] s/p coronary stents, the last 02/2016 S/P CABG 1999 s/p cholecystectomy s/p ICD 2015 s/p Rt TKR Ongoing medical problems " I have had to be resucitated on the operating table after right knee surgery and after cholecystectomy") ?OSAS anxiety/depression CAD; s/p CABG 1999 (denies hx of MS) cor. cath 04/2012: nonobstructive disease COPD/bronchial asthma DM HTN hypercholesterolemia Moderately severe systolic LV dysfunction-->ICD in 2015. overweight (once weighed 212 lbs; now 137 lbs as of 10/2016) s/p bioprosthetic AVR 04/2013 gout - Current Medication List Current Medications: Active Medications Acetaminophen (Tylenol -) 650 mg PO Q4H PRN PRN Reason: FEVER Last Admin: 02/04/17 14:14 Dose: 650 mg Alprazolam (Xanax -) 0.25 mg PO DAILY PRN PRN Reason: ANXIETY Last Admin: 02/01/17 09:44 Dose: 0.25 mg Aspirin (Asa -) 81 mg PO DAILY [facility] Last Admin: 02/04/17 09:02 Dose: 81 mg Budesonide/Formoterol Fumarate (Symbicort 80/4.5mcg -) 1 puff IH BID [facility] Last Admin: 02/04/17 21:56 Dose: 1 inhaler Clopidogrel Bisulfate (Plavix -) 75 mg PO DAILY [facility] Last Admin: 02/04/17 09:02 Dose: 75 mg Docusate Sodium (Colace -) 100 mg PO BID [facility] Last Admin: 02/04/17 21:56 Dose: 100 mg Furosemide (Lasix Injection -) 80 mg IVPB BID@0600,1400 [facility] Last Admin: 02/05/17 06:08 Dose: 80 mg Guaifenesin (Robitussin -) 10 ml PO Q6H PRN Last Admin: 02/04/17 07:59 Dose: 10 ml Heparin Sodium (Porcine) (Heparin -) 5,000 unit SQ BID [facility] Last Admin: 02/04/17 21:56 Dose: 5,000 unit Levothyroxine Sodium (Synthroid -) 75 mcg PO DAILY@0700 [facility] Last Admin: 02/05/17 06:08 Dose: Not Given Lidocaine (Lidoderm Patch -) 1 patch TP DAILY [facility] Last Admin: 02/04/17 09:01 Dose: 1 patch Lorazepam (Ativan Injection -) 1 mg IM Q6H PRN PRN Reason: ANXIETY Metoprolol Tartrate (Lopressor -) 12.5 mg PO BID [facility] Last Admin: 02/04/17 21:56 Dose: 12.5 mg Miscellaneous (Lidoderm Patch Removal) 1 each MC DAILY@2200 [facility] Last Admin: 02/04/17 21:56 Dose: 1 each Morphine Sulfate (Morphine Sulfate) 1 mg IVPB Q6H PRN PRN Reason: PAIN Last Admin: 02/05/17 08:05 Dose: 1 mg Morphine Sulfate (Morphine Sulfate) 1 mg IVPB Q4H PRN Last Admin: 02/05/17 01:26 Dose: 1 mg Ondansetron HCl (Zofran Injection) 4 mg IVPUSH Q4H PRN PRN Reason: NAUSEA AND/OR VOMITING Stop: 02/05/17 10:45 Oxycodone HCl (Roxicodone -) 5 mg PO Q4H PRN PRN Reason: PAIN Last Admin: 02/04/17 14:14 Dose: 5 mg Sertraline HCl (Zoloft -) 25 mg PO DAILY [facility] Last Admin: 02/04/17 09:01 Dose: 25 mg Tiotropium [place] (Spiriva -) 1 puff IH DAILY [facility] Last Admin: 02/04/17 09:10 Dose: 1 inhaler - Objective Vital Signs: Vital Signs Temperature 96.4 F L 02/05/17 05:35 Pulse Rate 100 H 02/05/17 06:10 Respiratory Rate 22 02/05/17 06:10 Blood Pressure 91/58 02/05/17 06:10 O2 Sat by Pulse Oximetry (%) 93 L 02/04/17 21:00 Eyes: Yes: WNL, Conjunctiva Clear, EOM Intact HENT: Yes: WNL, Atraumatic, Normocephalic Neck: Yes: WNL, Supple, Trachea Midline Cardiovascular: Yes: WNL, Regular Rate and Rhythm Respiratory: Yes: WNL, Diminished Gastrointestinal: Yes: WNL, Normal Bowel Sounds Genitourinary: Yes: WNL Musculoskeletal: Yes: WNL Extremities: Yes: WNL Edema: No Integumentary: Yes: WNL Neurological: Yes: WNL, Alert, Oriented ...Motor Strength: WNL Psychiatric: Yes: WNL Labs: CBC, BMP 02/03/17 05:18 02/04/17 20:10 INR, PTT INR 1.23 (0.82-1.09) H 01/31/17 22:12 Assessment/Plan Problems (1) Asthma Code(s): J45.909 - UNSPECIFIED ASTHMA, UNCOMPLICATED (2) COPD (chronic obstructive pulmonary disease) Code(s): J44.9 - CHRONIC OBSTRUCTIVE PULMONARY DISEASE, UNSPECIFIED (3) Hyponatremia Code(s): E87.1 - HYPO-OSMOLALITY AND HYPONATREMIA (4) Hypothyroidism (acquired) Assessment/Plan: free T4 mildly elevated. Code(s): E03.9 - HYPOTHYROIDISM, UNSPECIFIED (5) Acute on chronic systolic and diastolic heart failure, NYHA class 4 Assessment/Plan: will increase lasix to 80 IV BID On metoprolol for systolic CHF, HR control. Problematic continuing ACEI, spironolactone due to hypotension, though pt has severe systolic dysfunction and would benefit from them. Hyponatremic; f/u with manager cath lab regarding diuretics. BUN/Cr, electrolytes, dailys weight, Is and Os. Code(s): I50.43 - ACUTE ON CHRONIC COMBINED SYSTOLIC AND DIASTOLIC HRT FAIL (6) S/P aortic valve replacement with bioprosthetic valve Code(s): Z95.3 - PRESENCE OF XENOGENIC HEART VALVE (7) Anxiety and depression Assessment/Plan: DNR/DNI. Pt's son says she became "depressed like this" when she had CABG years ago, " and the antidepressant (Xoloft) worked like a miracle". F/u with psychiatrist. Pt wants hospice if she continues to feel weak and dyspneic. Code(s): F41.8 - OTHER SPECIFIED ANXIETY DISORDERS (8) Acute on chronic respiratory failure with hypoxemia Code(s): J96.21 - ACUTE AND CHRONIC RESPIRATORY FAILURE WITH HYPOXIA (9) Major depress dis, severe Code(s): F32.2 - MAJOR DEPRESSV DISORD, SINGLE EPSD, SEV W/O PSYCH FEATURES (10) Sepsis Assessment/Plan: marked leukocytosis (?on steroids). Afebrile On antibiotics. F/u cultures; negative til now. Code(s): A41.9 - SEPSIS, UNSPECIFIED ORGANISM (11) Nonsustained ventricular tachycardia Assessment/Plan: no shocks. Continue present medications. Code(s): I47.2 - VENTRICULAR TACHYCARDIA (12) Sleep apnea in adult Code(s): G47.33 - OBSTRUCTIVE SLEEP APNEA (ADULT) (PEDIATRIC) (13) Valvular heart disease Code(s): I38 - ENDOCARDITIS, VALVE UNSPECIFIED
--- NOTE | 2017-02-05 09:09 | EKG ---
Test Reason : Blood Pressure : / mmHG Vent. Rate : 109 BPM Atrial Rate : 109 BPM P-R Int : 156 ms QRS Dur : 132 ms QT Int : 358 ms P-R-T Axes : 069 -47 100 degrees QTc Int : 482 ms Atrial-sensed ventricular-paced rhythm WITH FUSION COMPLEXES ABNORMAL ECG WHEN COMPARED WITH ECG OF 31-JAN-2017 22:22, FUSION COMPLEXES ARE NOW PRESENT PREMATURE VENTRICULAR COMPLEXES ARE NO LONGER PRESENT VENT. RATE HAS DECREASED BY 3 BPM Confirmed by DICKSON GAY MD ([id number]) on 02/05/2017 9:09:31 AM Referred By: Declan CARR Confirmed By:DICKSON GAY MD
[2017-02-05] MEDS: ASPIRIN 81 MG CHEWABLE TABLETS PO SCH (10:30)
[2017-02-05] MEDS: LIDOCAINE 5% TOPICAL PATCH TP SCH (10:30)
[2017-02-05] MEDS: HEPARIN NA (PORCINE) 5,000 UNITS/ML 1ML VIAL SQ SCH ×2 (10:30→21:20)
[2017-02-05] MEDS: DOCUSATE SODIUM 100 MG CAPSULE (FP) PO SCH ×2 (10:30→21:20)
[2017-02-05] MEDS: METOPROLOL TARTRATE 25 MG TABLET (FP) PO SCH ×2 (10:31→21:20)
[2017-02-05] MEDS: CLOPIDOGREL BISULFATE 75 MG TABLET (FP) PO SCH (10:32)
[2017-02-05] MEDS: TIOTROPIUM BROMIDE 18 MCG/INH (DEVICE W/ 5 CAPSULES) IH SCH (10:33)
[2017-02-05] MEDS: SERTRALINE HCL 25 MG TABLET (FP) PO SCH (10:33)
[2017-02-05] MEDS: BUDESONIDE/FORMETEROL FUMARATE 80/4.5 mcg INHALER IH SCH ×2 (10:33→21:20)
--- NOTE | 2017-02-05 11:59 | PN ---
Progress Note (short form) - Note Progress Note: Worsening SOB overnight. Now on 100% NRBM. Daughter in law and granddaughter at the bedside. Breathing is non-labored. Intake & Output 02/02/17 02/03/17 02/04/17 02/05/17 23:59 23:59 23:59 23:59 Intake Total 1100 740 310 20 Output Total 700 100 100 Balance 1100 40 210 -80 Weight 155 lb 9.6 oz Last Vital Signs Temp Pulse Resp BP Pulse Ox 97 F L 108 H 22 87/60 96 02/05/17 09:00 02/05/17 09:00 02/05/17 09:00 02/05/17 09:00 02/05/17 08:00 Active Medications Acetaminophen (Tylenol -) 650 mg PO Q4H PRN PRN Reason: FEVER Last Admin: 02/04/17 14:14 Dose: 650 mg Alprazolam (Xanax -) 0.25 mg PO DAILY PRN PRN Reason: ANXIETY Last Admin: 02/01/17 09:44 Dose: 0.25 mg Aspirin (Asa -) 81 mg PO DAILY [facility] Last Admin: 02/05/17 10:30 Dose: Not Given Budesonide/Formoterol Fumarate (Symbicort 80/4.5mcg -) 1 puff IH BID [facility] Last Admin: 02/05/17 10:33 Dose: Not Given Clopidogrel Bisulfate (Plavix -) 75 mg PO DAILY [facility] Last Admin: 02/05/17 10:32 Dose: Not Given Docusate Sodium (Colace -) 100 mg PO BID [facility] Last Admin: 02/05/17 10:30 Dose: Not Given Furosemide (Lasix Injection -) 80 mg IVPB BID@0600,1400 [facility] Last Admin: 02/05/17 06:08 Dose: 80 mg Guaifenesin (Robitussin -) 10 ml PO Q6H PRN Last Admin: 02/04/17 07:59 Dose: 10 ml Heparin Sodium (Porcine) (Heparin -) 5,000 unit SQ BID [facility] Last Admin: 02/05/17 10:30 Dose: 5,000 unit Levothyroxine Sodium (Synthroid -) 75 mcg PO DAILY@0700 [facility] Last Admin: 02/05/17 06:08 Dose: Not Given Lidocaine (Lidoderm Patch -) 1 patch TP DAILY [facility] Last Admin: 02/05/17 10:30 Dose: 1 patch Lorazepam (Ativan Injection -) 1 mg IM Q6H PRN PRN Reason: ANXIETY Metoprolol Tartrate (Lopressor -) 12.5 mg PO BID [facility] Last Admin: 02/05/17 10:31 Dose: Not Given Miscellaneous (Lidoderm Patch Removal) 1 each MC DAILY@2200 [facility] Last Admin: 02/04/17 21:56 Dose: 1 each Morphine Sulfate (Morphine Sulfate) 1 mg IVPB Q6H PRN PRN Reason: PAIN Last Admin: 02/05/17 08:05 Dose: 1 mg Morphine Sulfate (Morphine Sulfate) 1 mg IVPB Q4H PRN Last Admin: 02/05/17 01:26 Dose: 1 mg Oxycodone HCl (Roxicodone -) 5 mg PO Q4H PRN PRN Reason: PAIN Last Admin: 02/04/17 14:14 Dose: 5 mg Sertraline HCl (Zoloft -) 25 mg PO DAILY [facility] Last Admin: 02/05/17 10:33 Dose: Not Given Tiotropium [place] (Spiriva -) 1 puff IH DAILY [facility] Last Admin: 02/05/17 10:33 Dose: Not Given Constitutional: Yes: on 100% NRBM, weak appearing Eyes: Yes: Conjunctiva Clear HENT: Yes: Atraumatic Neck: Yes: Supple Cardiovascular: Yes: S1, S2 Respiratory: Yes: Bilateral rhonchi, no wheeze Gastrointestinal: Yes: Soft Genitourinary: Yes: WNL Musculoskeletal: Yes: Muscle Weakness Edema: Yes Edema: LLE: 2+, RLE: 2+ Neurological: Yes: lethargic Psychiatric: Yes: lethargic Laboratory Results - last 24 hr 02/03/17 02/04/17 02/04/17 12:30 05:20 20:10 Sodium 121 L* Potassium 5.4 H Chloride 77 L Carbon Dioxide 34 H Anion Gap 10 BUN 94 H Creatinine 1.9 H Random Glucose 112 H D Calcium 8.9 Cortisol AM Sample 66.7 Ur Random Sodium 6 Ur Random Potassium 23.0 Ur Random Chloride < 10 Urine Creatinine 02/05/17 02/05/17 06:50 06:50 Sodium Potassium Chloride Carbon Dioxide Anion Gap BUN Creatinine Random Glucose Calcium Cortisol AM Sample Ur Random Sodium 14 Ur Random Potassium 20.3 Ur Random Chloride 12 Urine Creatinine 107.0 Problem List - Problems (1) Acute on chronic systolic CHF (congestive heart failure) Code(s): I50.23 - ACUTE ON CHRONIC SYSTOLIC (CONGESTIVE) HEART FAILURE (2) Anxiety about health Code(s): F41.8 - OTHER SPECIFIED ANXIETY DISORDERS (3) Anxiety and depression Code(s): F41.8 - OTHER SPECIFIED ANXIETY DISORDERS (4) Aortic valve replaced Code(s): Z95.2 - PRESENCE OF PROSTHETIC HEART VALVE (5) Asthma Code(s): J45.909 - UNSPECIFIED ASTHMA, UNCOMPLICATED (6) Bilateral edema of lower extremity Code(s): R60.0 - LOCALIZED EDEMA (7) CAD (coronary artery disease) Code(s): I25.10 - ATHSCL HEART DISEASE OF [place] CORONARY ARTERY W/O ANG PCTRS (8) CHF (congestive heart failure) Code(s): I50.9 - HEART FAILURE, UNSPECIFIED Qualifiers: Congestive heart failure type: unspecified congestive heart failure type Congestive heart failure chronicity: unspecified congestive heart failure chronicity Qualified Code(s): I50.9 - Heart failure, unspecified; I50.9 - Heart failure, unspecified; I50.9 - Heart failure, unspecified; I50.9 - Heart failure, unspecified (9) Acute on chronic respiratory failure with hypoxemia Code(s): J96.21 - ACUTE AND CHRONIC RESPIRATORY FAILURE WITH HYPOXIA (10) COPD (chronic obstructive pulmonary disease) Code(s): J44.9 - CHRONIC OBSTRUCTIVE PULMONARY DISEASE, UNSPECIFIED (11) Hyponatremia Code(s): E87.1 - HYPO-OSMOLALITY AND HYPONATREMIA (12) S/P aortic valve replacement with bioprosthetic valve Code(s): Z95.3 - PRESENCE OF XENOGENIC HEART VALVE (13) Diaphragm paralysis Code(s): J98.6 - DISORDERS OF DIAPHRAGM (14) Shortness of breath Code(s): R06.02 - SHORTNESS OF BREATH (15) UTI (urinary tract infection) Code(s): N39.0 - URINARY TRACT INFECTION, SITE NOT SPECIFIED Qualifiers: Urinary tract infection type: site unspecified Hematuria presence: without hematuria Qualified Code(s): N39.0 - Urinary tract infection, site not specified; N39.0 - Urinary tract infection, site not specified; R31.9 - Hematuria, unspecified; R31.9 - Hematuria, unspecified (16) Anxiety 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 Code(s): F41.0 - PANIC DISORDER [EPISODIC PAROXYSMAL ANXIETY] (17) Hx of CABG Code(s): Z95.1 - PRESENCE OF AORTOCORONARY BYPASS GRAFT (18) Hyperlipidemia Code(s): E78.5 - HYPERLIPIDEMIA, UNSPECIFIED (19) Hypertension Code(s): I10 - ESSENTIAL (PRIMARY) HYPERTENSION (20) ICD (implantable cardioverter-defibrillator) in place Code(s): Z95.810 - PRESENCE OF AUTOMATIC (IMPLANTABLE) CARDIAC DEFIBRILLATOR (21) Sleep apnea in adult Code(s): G47.33 - OBSTRUCTIVE SLEEP APNEA (ADULT) (PEDIATRIC) IMP ACUTE ON CHRONIC HYPOXEMIC RESPIRATORY FAILURE DECOMPENSATED CONGESTIVE HEART FAILURE S/P ICD COPD EXACERBATION LEFT DIAPHRAGMATIC PARALYSIS ASHD S/P CABG,STENTS HYPONATREMIA ACUTE ON CHRONIC KIDNEY DISEASE DM S/P AVR JERALD DEPRESSION/ANXIETY UTI PLAN IV LASIX PER RENAL INHALED BRONCHODILATORS 100% NRBM DAILY WTS MONITOR LYTES/NA ANTIBIOTICS PER ID DNR/DNI DR RYAN
[2017-02-05] MEDS ORDERED: BISACODYL 10 MG SUPP.RECT RC PRN (14:31)
--- NOTE | 2017-02-05 14:40 | PN ---
Progress Note (short form) - Note Progress Note: Events noted sob last night - nrrb poorly responsive today family at bedside not making much urine looks very weak Vital Signs Temp 97 F L 02/05/17 09:00 Pulse 108 H 02/05/17 09:00 Resp 22 02/05/17 09:00 BP 87/60 02/05/17 09:00 Pulse Ox 96 02/05/17 08:00 Intake & Output 02/04/17 02/05/17 02/05/17 23:59 11:59 23:59 Intake Total 10 20 Output Total 100 100 Balance -90 -80 Intake: IVPB 10 20 Output: Urine 100 100 [place] 100 100 Other: Voiding Method Indwelling Catheter Indwelling Catheter Indwelling Catheter Active Medications Acetaminophen (Tylenol -) 650 mg PO Q4H PRN PRN Reason: FEVER Last Admin: 02/04/17 14:14 Dose: 650 mg Alprazolam (Xanax -) 0.25 mg PO DAILY PRN PRN Reason: ANXIETY Last Admin: 02/01/17 09:44 Dose: 0.25 mg Aspirin (Asa -) 81 mg PO DAILY [facility] Last Admin: 02/05/17 10:30 Dose: Not Given Bisacodyl (Dulcolax Suppository -) 10 mg RC PRN PRN PRN Reason: CONSTIPATION Budesonide/Formoterol Fumarate (Symbicort 80/4.5mcg -) 1 puff IH BID [facility] Last Admin: 02/05/17 10:33 Dose: Not Given Clopidogrel Bisulfate (Plavix -) 75 mg PO DAILY [facility] Last Admin: 02/05/17 10:32 Dose: Not Given Docusate Sodium (Colace -) 100 mg PO BID [facility] Last Admin: 02/05/17 10:30 Dose: Not Given Furosemide (Lasix Injection -) 80 mg IVPB BID@0600,1400 [facility] Last Admin: 02/05/17 14:08 Dose: Not Given Guaifenesin (Robitussin -) 10 ml PO Q6H PRN Last Admin: 02/04/17 07:59 Dose: 10 ml Heparin Sodium (Porcine) (Heparin -) 5,000 unit SQ BID [facility] Last Admin: 02/05/17 10:30 Dose: 5,000 unit Dextrose/Sodium Chloride (D5-1/2ns -) 1,000 mls @ 83 mls/hr IV ASDIR [facility] Dextrose/Sodium Chloride (D5-Ns -) 1,000 mls @ 83 mls/hr IV ASDIR [facility] Levothyroxine Sodium (Synthroid -) 75 mcg PO DAILY@0700 [facility] Last Admin: 02/05/17 06:08 Dose: Not Given Lidocaine (Lidoderm Patch -) 1 patch TP DAILY [facility] Last Admin: 02/05/17 10:30 Dose: 1 patch Lorazepam (Ativan Injection -) 1 mg IM Q6H PRN PRN Reason: ANXIETY Metoprolol Tartrate (Lopressor -) 12.5 mg PO BID [facility] Last Admin: 02/05/17 10:31 Dose: Not Given Miscellaneous (Lidoderm Patch Removal) 1 each MC DAILY@2200 [facility] Last Admin: 02/04/17 21:56 Dose: 1 each Morphine Sulfate (Morphine Sulfate) 1 mg IVPB Q4H PRN Last Admin: 02/05/17 01:26 Dose: 1 mg Sertraline HCl (Zoloft -) 25 mg PO DAILY [facility] Last Admin: 02/05/17 10:33 Dose: Not Given Tiotropium [place] (Spiriva -) 1 puff IH DAILY [facility] Last Admin: 02/05/17 10:33 Dose: Not Given CBC, BMP 02/03/17 05:18 02/04/17 20:10 Microbiology 01/31/17 22:12 Blood Culture - Preliminary Blood - Peripheral Venous NO GROWTH OBTAINED AFTER 96 HOURS, INCUBATION TO CONTINUE FOR 1 DAYS. 01/31/17 22:12 Blood Culture - Preliminary Blood - Peripheral Venous NO GROWTH OBTAINED AFTER 96 HOURS, INCUBATION TO CONTINUE FOR 1 DAYS. cxr- no change Physical exam Constitutional: Yes: weak/ letahrgic Cardiovascular: Yes: Regular Rate and Rhythm Respiratory: Yes: bilateral rhonchi Gastrointestinal: Yes: Normal Bowel Sounds, Soft, Abdomen, Obese. No: Distention, Tenderness Edema: Yes neuro--lethargic Problem List - Problems (1) Bilateral edema of lower extremity Code(s): R60.0 - LOCALIZED EDEMA (2) CHF exacerbation Code(s): I50.9 - HEART FAILURE, UNSPECIFIED (3) COPD (chronic obstructive pulmonary disease) Code(s): J44.9 - CHRONIC OBSTRUCTIVE PULMONARY DISEASE, UNSPECIFIED (4) Hyponatremia Code(s): E87.1 - HYPO-OSMOLALITY AND HYPONATREMIA (5) Acute on chronic systolic CHF (congestive heart failure) Code(s): I50.23 - ACUTE ON CHRONIC SYSTOLIC (CONGESTIVE) HEART FAILURE (6) Sepsis Code(s): A41.9 - SEPSIS, UNSPECIFIED ORGANISM Assessment/Plan Overall condition worsening and poor I discussed in detail with pts family. showed all results on computor. Spend about 20 min in discussion. Multiorgan failure they understand want to continue morphine on prn basis for pain/ dysnea. will hold lasix. will give small amount of fluids prognosis poor. pt is dnr/ di will follow discussed with nursing staff also . total time spend 35 min.
[2017-02-05] MEDS ORDERED: DEXTROSE 5%-NORMAL SALINE 1,000 ML IV SCH (14:45)
[2017-02-05] MEDS ORDERED: DEXTROSE 5%-0.45% SALINE 1,000 ML IV SCH (14:45)
--- NOTE | 2017-02-05 18:02 | PN ---
Progress Note (short form) - Note Progress Note: nephrology f/u c/o severe pain Hyponatremia persistent pain decreased mental status Current Medications Acetaminophen (Tylenol -) 650 mg PO Q4H PRN PRN Reason: FEVER Last Admin: 02/04/17 14:14 Dose: 650 mg Alprazolam (Xanax -) 0.25 mg PO DAILY PRN PRN Reason: ANXIETY Last Admin: 02/01/17 09:44 Dose: 0.25 mg Aspirin (Asa -) 81 mg PO DAILY [facility] Last Admin: 02/05/17 10:30 Dose: Not Given Bisacodyl (Dulcolax Suppository -) 10 mg RC PRN PRN PRN Reason: CONSTIPATION Budesonide/Formoterol Fumarate (Symbicort 80/4.5mcg -) 1 puff IH BID [facility] Last Admin: 02/05/17 10:33 Dose: Not Given Clopidogrel Bisulfate (Plavix -) 75 mg PO DAILY [facility] Last Admin: 02/05/17 10:32 Dose: Not Given Docusate Sodium (Colace -) 100 mg PO BID [facility] Last Admin: 02/05/17 10:30 Dose: Not Given Furosemide (Lasix Injection -) 80 mg IVPB BID@0600,1400 [facility] Last Admin: 02/05/17 14:08 Dose: Not Given Guaifenesin (Robitussin -) 10 ml PO Q6H PRN Last Admin: 02/04/17 07:59 Dose: 10 ml Heparin Sodium (Porcine) (Heparin -) 5,000 unit SQ BID [facility] Last Admin: 02/05/17 10:30 Dose: 5,000 unit Dextrose/Sodium Chloride (D5-Ns -) 1,000 mls @ 83 mls/hr IV ASDIR [facility] Last Admin: 02/05/17 16:34 Dose: 83 mls/hr Levothyroxine Sodium (Synthroid -) 75 mcg PO DAILY@0700 [facility] Last Admin: 02/05/17 06:08 Dose: Not Given Lidocaine (Lidoderm Patch -) 1 patch TP DAILY [facility] Last Admin: 02/05/17 10:30 Dose: 1 patch Lorazepam (Ativan Injection -) 1 mg IM Q6H PRN PRN Reason: ANXIETY Metoprolol Tartrate (Lopressor -) 12.5 mg PO BID [facility] Last Admin: 02/05/17 10:31 Dose: Not Given Miscellaneous (Lidoderm Patch Removal) 1 each MC DAILY@2200 [facility] Last Admin: 02/04/17 21:56 Dose: 1 each Morphine Sulfate (Morphine Sulfate) 1 mg IVPB Q4H PRN Last Admin: 02/05/17 01:26 Dose: 1 mg Sertraline HCl (Zoloft -) 25 mg PO DAILY [facility] Last Admin: 02/05/17 10:33 Dose: Not Given Tiotropium [place] (Spiriva -) 1 puff IH DAILY [facility] Last Admin: 02/05/17 10:33 Dose: Not Given Last Vital Signs Temp Pulse Resp BP Pulse Ox 98 F 110 H 21 107/57 96 02/05/17 14:38 02/05/17 14:38 02/05/17 14:38 02/05/17 14:38 02/05/17 08:00 CBC, BMP 02/03/17 05:18 02/04/17 20:10 IMP- hyponatremia anasarca copd oliguria agree prognosis is bad Plan- monitor response in urine output to IVF ordered
[2017-02-05] MEDS: LIDOCAINE PATCH REMOVAL MC SCH (21:10)
[2017-02-05] MEDS ORDERED: MORPHINE 100 MG in SODIUM CHLORIDE 98 ML IVPB SCH (21:45)
--- NOTE | 2017-02-05 22:20 | HOSP ---
Physical Examination Vital Signs: Vital Signs Temperature 97.7 F 02/05/17 17:00 Pulse Rate 103 H 02/05/17 17:00 Respiratory Rate 20 02/05/17 17:00 Blood Pressure 82/61 02/05/17 17:00 O2 Sat by Pulse Oximetry (%) 96 02/05/17 08:00 Findings/Remarks: Called to see a patient who had . PE: General: Patient lying still, not responsive to painful stimuli. Neuro: Pupils fixed. Absent pupillary and corneal reflexes. Absent doll's eyes reflex Chest: Absent respiration, absent breath sounds Heart: Absent peripheral and central pulses, absent heart sounds Patient pronounced at 22.[address] Kasie Burk Labs: CBC, BMP 02/03/17 05:18 02/04/17 20:10 Visit type - Emergency Visit Emergency Visit: Yes ED Registration Date: 01/31/17 Care time: The patient presented to the Emergency Department on the above date and was hospitalized for further evaluation of their emergent condition. - New Patient This patient is new to me today: Yes Date on this admission: 02/05/17 - Critical Care Critical Care patient: No
[2017-02-06 02:29] VITALS: BP 94/52; PULSE 100; TEMP 98.8
--- NOTE | 2017-02-06 12:28 | DS ---
Physical Examination Vital Signs: Vital Signs Temperature 98.8 F 02/05/17 19:30 Pulse Rate 100 H 02/05/17 19:30 Respiratory Rate 21 02/05/17 19:30 Blood Pressure 94/52 02/05/17 19:30 O2 Sat by Pulse Oximetry (%) 95 02/05/17 21:00 Labs: CBC, BMP 02/03/17 05:18 02/04/17 20:10 Discharge Summary Reason For Visit: ACUTE ON CHRONIC CHF Hospital Course: The patient is a 81 year old female resident from [facility], with a significant past medical history of Asthma, CHF, COPD (on 3L O2), HTN, HLD, CAD (s/p CABG 14 yrs ago), Hypothyroidism, recurrent UTIs who presents to the emergency department with SOB today. pt found to in chf exac/ uti treated with lasix/ abx condition deteriorated. pt on 02/05/17. Condition: Stable - Instructions Referrals: Flori Bella MD [Primary Care Provider] - Disposition: - Home Medications Comprehensive Discharge Medication List: Ambulatory Orders Aspirin [ASA -] 81 mg PO DAILY 08/10/15 Budesonide/Formeterol Fumarate [SYMBICORT 80/4.5mcg -] 1 inh PO BID 08/10/15 Tiotropium [place] [Spiriva] 1 inh PO DAILY 08/10/15 Levothyroxine [Synthroid -] 75 mcg PO DAILY 09/16/15 Clopidogrel Bisulfate [Clopidogrel] 75 mg PO DAILY 03/18/16 Alprazolam [Xanax] 0.25 mg PO DAILY PRN #0 tablet MDD 1mg 01/26/17 Calcium Carbonate - 650 mg PO BID tablet 01/26/17 Docusate Sodium [Colace -] 100 mg PO BID cap 01/26/17 Furosemide [Lasix -] 40 mg PO BID@0600,1400 tablet 01/26/17 Guaifenesin [Robitussin -] 10 ml PO Q6H PRN #0 ml 01/26/17 Heparin - 5,000 unit SQ BID vial 01/26/17 Lidocaine 5% Patch [Lidoderm -] 1 patch TP DAILY patch 01/26/17 Lidocaine Patch Removal [Lidoderm Patch Removal] 1 each MC DAILY@2200 each Methyl Salicylate/Menthol Oint [Analgesic [place] -] 1 applic TP DAILY applic Metoprolol Tartrate [Lopressor -] 12.5 mg PO BID tablet 01/26/17 Sodium Chloride Nasal [place] [[place] Nasal [place] -] 2 spray NS DAILY PRN #0 spray 01/26/17
== END 2017-02-05 22:05 | disposition expired | DRG 871 ==
LOC: JER 21:03 → JERBED 22:57 → J4W 02-01 14:15
PROVIDERS: ADMIT Internal Medicine; ATTEND Internal Medicine
DX: A41.9 Sepsis, unspecified organism (principal); I50.23 Acute on chronic systolic (congestive) heart failure; J96.21 Acute and chronic respiratory failure with hypoxia; E87.1 Hypo-osmolality and hyponatremia; I47.2 Ventricular tachycardia; N17.9 Acute kidney failure, unspecified; E87.3 Alkalosis; N39.0 Urinary tract infection, site not specified; J44.1 Chronic obstructive pulmonary disease with (acute) exacerbation; I25.10 Atherosclerotic heart disease of native coronary artery without angina pectoris; E78.5 Hyperlipidemia, unspecified; E03.9 Hypothyroidism, unspecified; I48.91 Unspecified atrial fibrillation; R60.0 Localized edema; D72.828 Other elevated white blood cell count; J98.6 Disorders of diaphragm; G47.33 Obstructive sleep apnea (adult) (pediatric); E87.6 Hypokalemia; E87.5 Hyperkalemia; K57.90 Diverticulosis of intestine, part unspecified, without perforation or abscess without bleeding; M54.5 Low back pain; I46.9 Cardiac arrest, cause unspecified; F41.8 Other specified anxiety disorders; I11.0 Hypertensive heart disease with heart failure; Z95.2 Presence of prosthetic heart valve; Z95.1 Presence of aortocoronary bypass graft; Z96.651 Presence of right artificial knee joint; Z99.81 Dependence on supplemental oxygen; Z95.810 Presence of automatic (implantable) cardiac defibrillator; Z87.891 Personal history of nicotine dependence; Z68.31 Body mass index [BMI] 31.0-31.9, adult
CPT/HCPCS: 36415; 71010-TC; 80048; 80053; 81003; 81015; 82436; 82533; 82550; 82570; 83605; 83735; 83880; 83930; 83935; 84133; 84300; 84439; 84443; 84484; 85025; 85610; 86850; 86900; 86901; 87040; 87086; 87186; 93005; 93010; 94640; 99284-25; G0480; J1644